=== PATIENT | female | born 1995 | race Caucasian/White ===

== ENCOUNTER → 2017-04-30 14:44 | Outpatient (CLI) | payer MEDICAID, SELFPAY ==
[2017-04-30 15:19] LABS: Absolute Lymphocyte Count 2.59 X10^3/ul (0.83-4.51); Absolute Neutrophil Count 7.5 X10^3/uL (2.0-7.7); Basophil# 0.02 X10^3/uL; Basophil% 0.2 % (0-1); Eosinophil# 0.09 X10^3/uL; Eosinophils% 0.8 % (0-5); Hematocrit 37.2 % (37-47); Lymphocyte # 2.59 X10^3/ul (4.0); Mean Corp Hgb Conc 32.3 g/gl (32-36); Mean Corpuscular Hgb 27.4 pg (27.0-32.0); Mean Corpuscular Volume 84.9 fL (81-99); Mean Platelet Vol. 10.6 fl (6.2-12.0); Monocyte# 0.53 X10^3/uL; Monocyte% 4.9 % (0-10); Neutrophil # 7.54 X10^3/uL (2.7-7.7); Neutrophil % 69.7 % (47-70); Platelet Count 253 K/mm3 (150-450); RBC Distribution Width CV 14.5 % (11.6-14.6); RBC Distribution Width SD 44.9 fl (35.1-43.9); Red Blood Count 4.38 M/mm3 (4.2-5.4); White Blood Count 10.8 K/mm3 (4.4-11.0)
[2017-04-30 15:27] LABS: POSITIVE COUNT NO; POSITIVE DIFFERENTIAL NO; POSITIVE MORPHOLOGY NO
== END ==
PROVIDERS: Family Provider Family Medicine; PCP Family Medicine; Visit Provider Obstetrics & Gynecology
DX: O09.92 Supervision of high risk pregnancy, unspecified, second trimester (principal); Z3A.00 Weeks of gestation of pregnancy not specified
CPT/HCPCS: 36415; 85025

== ENCOUNTER → 2017-05-30 12:08 | Outpatient (CLI) | payer MEDICAID, SELFPAY ==
--- NOTE | 2017-05-30 09:19 | US_ITS ---
STUDY: SECOND AND THIRD TRIMESTER OBSTETRICAL ULTRASOUND - LIMITED REASON FOR EXAM: Female, 21 years old. Follow-up of growth. LMP: October 27, 2016 PRIOR ULTRASOUND: March 14, 2017 TECHNIQUE: Transabdominal ultrasound evaluation was performed. FINDINGS: There is a single intrauterine fetus. The fetus is in a cephalic presentation. There is demonstrated cardiac activity with a heart rate of 136 bpm. There is a normal amniotic fluid volume. The largest amniotic fluid pocket measures 5.1 cm. The amniotic fluid index (BLADIMIR) is 16.2 cm. The placenta is anterior in location and is not low lying. There are Grade 2 placental changes. The cervix measures greater than 3.5 cm in length. BIOMETRY: BPD: 7.8 cm: 31 weeks, 2 days HC: 28.1 cm: 30 weeks, 6 days AC: 26.1 cm: 30 weeks, 2 days FL: 5.8 cm: 30 weeks, 2 days Age by LMP: 30 weeks, 5 days. BENNIE by LMP: August 03, 2017. age by prior US: 30 weeks, 1 days. BENNIE by prior US: August 07, 2017. age by current US: 30 weeks, 5 days. BENNIE by current US: August 03, 2017. Estimated weight: 1564 grams, +/- 228 grams, 27 percentile. US/OB Limited With Biometrics IMPRESSION: 1. Single living intrauterine gestation in cephalic presentation with estimated gestational age by size of 30 weeks 5 days. This is concordant with the clinical dating. 2. There has been normal interval growth since previous OB ultrasound. Electronically Signed: Neris Vazquez MD at 11:43 EDT , Service support ,
[2017-05-30 12:32] LABS: Absolute Lymphocyte Count 1.71 X10^3/ul (0.83-4.51); Absolute Neutrophil Count 6.9 X10^3/uL (2.0-7.7); Basophil# 0.03 X10^3/uL; Basophil% 0.3 % (0-1); Eosinophil# 0.08 X10^3/uL; Eosinophils% 0.9 % (0-5); Hematocrit 33.7 % (37-47); Hemoglobin 11.3 g/dl (12.0-15.0); Lymphocyte # 1.71 X10^3/ul (4.0); Lymphocyte % 18.2 % (19-41); Mean Corp Hgb Conc 33.5 g/gl (32-36); Mean Corpuscular Hgb 28.5 pg (27.0-32.0); Mean Corpuscular Volume 84.9 fL (81-99); Mean Platelet Vol. 10.6 fl (6.2-12.0); Monocyte% 6.4 % (0-10); Neutrophil # 6.94 X10^3/uL (2.7-7.7); Neutrophil % 73.9 % (47-70); Platelet Count 235 K/mm3 (150-450); RBC Distribution Width CV 14.4 % (11.6-14.6); RBC Distribution Width SD 43.7 fl (35.1-43.9); Red Blood Count 3.97 M/mm3 (4.2-5.4); White Blood Count 9.4 K/mm3 (4.4-11.0)
[2017-05-30 12:33] LABS: POSITIVE COUNT NO; POSITIVE DIFFERENTIAL NO; POSITIVE MORPHOLOGY NO
[2017-05-30 13:11] LABS: ALB/GLOB Ratio 0.6 RATIO (0.9-2.4); AST(SGOT) 15 U/L (15-37); Alanine Aminotransfer ALT/SGPT 17 U/L (13-56); Albumin, Serum 2.7 g/dL (3.2-5.0); Alkaline Phosphatase 72 U/L (45-117); Anion Gap 12 (5-15); BUN 7 mg/dL (7-18); BUN/Creat Ratio 13.5 RATIO (10-20); Calcium,Total 8.4 mg/dL (8.5-10.1); Chloride 107 mmol/L (98-107); Creatinine, Serum 0.52 mg/dL (0.55-1.02); EST Glomerular Filtration Rate 157 mL/min (>60); Est Glom Filt Rate - Afr Amer 190 mL/min (>60); Globulin 4.4 g/dL (2.2-4.2); Glucose 99 mg/dL (74-106); LDH 154 U/L (84-246); Potassium 4.1 mmol/L (3.5-5.1); Protein, Total 7.1 g/dL (6.4-8.2); Sodium Level 138 mmol/L (136-145); Uric Acid 5.9 mg/dL (2.6-6.0)
[2017-05-30 13:50] LABS: Protein, Urine (Random) 60.6 mg/dL (<11.9); Protein:Creat Ratio 497 mg/g CRE (0-200)
== END ==
PROVIDERS: Family Provider Family Medicine; PCP Family Medicine; Visit Provider Obstetrics & Gynecology
DX: O24.012 Pre-existing type 1 diabetes mellitus, in pregnancy, second trimester (principal); O09.92 Supervision of high risk pregnancy, unspecified, second trimester; Z3A.00 Weeks of gestation of pregnancy not specified
CPT/HCPCS: 36415; 76816; 80053; 82570; 83615; 84156; 84550; 85025

== ENCOUNTER 2017-06-09 18:40 | Outpatient (CLI) | payer MEDICAID, SELFPAY ==
[2017-06-09 20:32] VITALS: BMI 43.1
[2017-06-09 20:37] LABS: Mucous, Urine 0 SEEN /hpf (<or=2+)
[2017-06-09 20:39] LABS: Color, Urine Yellow (Yellow); Glucose, Dipstick Normal (Normal); Hematocrit 33.3 % (37-47); Hemoglobin 10.8 g/dl (12.0-15.0); Ketone-Dipstick 50 mg/dl (Negative); Leukocyte Esterase-Dipstick 500 /ul (Negative); Mean Corp Hgb Conc 32.4 g/gl (32-36); Mean Corpuscular Hgb 27.4 pg (27.0-32.0); Mean Corpuscular Volume 84.5 fL (81-99); Mean Platelet Vol. 10.3 fl (6.2-12.0); Nitrite-Dipstick Negative (Negative); Occult Blood-Urine Negative /ul (Negative); Platelet Count 194 K/mm3 (150-450); Protein-Dipstick 30 mg/dl (Negative); RBC Distribution Width CV 14.4 % (11.6-14.6); RBC Distribution Width SD 44.4 fl (35.1-43.9); Red Blood Count 3.94 M/mm3 (4.2-5.4); Urine Bilirubin Dipstick Negative (Negative); Urine Clarity Clear (Clear); Urine Urobilinogen Normal (Normal); White Blood Count 8.2 K/mm3 (4.4-11.0)
[2017-06-09 20:41] LABS: Scan Indicated on CBC? Y/N NO
[2017-06-09 20:53] LABS: Red Blood Cells-Urine 0-5 SEEN /hpf (0-5); Squamous Epithelial Cells - UA 10-25 SEEN /hpf (5-10); White Blood Cells 10-25 SEEN /hpf (0-5)
[2017-06-09 20:54] LABS: Bacteria 2+ /hpf (None Seen)
[2017-06-09 21:14] LABS: ALB/GLOB Ratio 0.6 RATIO (0.9-2.4); AST(SGOT) 31 U/L (15-37); Alanine Aminotransfer ALT/SGPT 18 U/L (13-56); Albumin, Serum 2.6 g/dL (3.2-5.0); Alkaline Phosphatase 82 U/L (45-117); Anion Gap 12 (5-15); BUN 7 mg/dL (7-18); BUN/Creat Ratio 16.3 RATIO (10-20); Calcium,Total 8.1 mg/dL (8.5-10.1); Chloride 108 mmol/L (98-107); Creatinine, Serum 0.43 mg/dL (0.55-1.02); EST Glomerular Filtration Rate 196 mL/min (>60); Est Glom Filt Rate - Afr Amer 237 mL/min (>60); Globulin 4.3 g/dL (2.2-4.2); Glucose 66 mg/dL (74-106); Potassium 3.6 mmol/L (3.5-5.1); Protein, Total 6.9 g/dL (6.4-8.2); Sodium Level 140 mmol/L (136-145)
[2017-06-09] MEDS: Nitrofurantoin Macrocrystals 100 MG Capsule PO (21:40)
--- NOTE | 2017-06-12 01:52 | OB.TRI.NOTE ---
History of Present Illness Date of Service: 06/09/17 Was patient seen by the physician?: Yes Reason For Visit: ABDOMINAL PAIN Date of Service: 06/09/17 Final BENNIE: 08/06/17 Gestational age: 32 Weeks and 1 Days History of Present Illness: 21 yo @ 31 weeks presents with abdominal pain right sided, no vb lof good fm no regular ctx ROS: general: negative GI: negative checkman: see hpi Home Medications Medication Instructions Recorded Sertraline HCl [Zoloft] 100 mg PO DAILY 06/08/15 blood pressure monitor kit See Dose Instructions .ROUTE 02/21/17 .MEDSUPPLY #1 ea labetalol 100 mg tablet 100 mg PO BID #60 tab 02/21/17 blood sugar diagnostic strips See Dose Instructions .ROUTE 03/22/17 .MEDSUPPLY #20 ea insulin lispro (U-100) 100 unit/mL See Label Instructions SC TID ml 03/22/17 subcutaneous half-unit pen pen needle, diabetic 32 gauge x See Dose Instructions .ROUTE 03/22/1732 .MEDSUPPLY #10 ea 1 tab PO QDAY 03/22/17 vitamin,calcium,sklgwefe-jxfz-rkqvn acid tablet Acetaminophen/Butalbital/Caffe 1 tablet PO Q4H PRN PRN 06/09/17 [Fioricet] Aspirin [Aspirin, Baby] 81 mg PO DAILY@0800 06/09/17 Insulin Glargine [Lantus (BKC)] 14 units SC QHS 06/09/17 Nitrofurantoin Monohyd/M-Cryst 100 mg PO BID #14 cap 06/10/17 [Macrobid 100 mg Capsule] Allergies No Known Allergies Allergy (Verified 06/09/17 19:33) - Pertinent Past Medical History Pertinent Past Medical History: diabetes hypertension depression Physical Exam General: Alert, Oriented x3 Cardiovascular: Regular rate Lungs: Clear to auscultation Abdomen: Soft, Non Tender, Gravid Extremities:: No edema Estimated gestational size: Appropriate for gestational size NST - FHR Rate Baby A Baseline: 140 Variability:: Moderate Accelerations:: 15 x 15 Decelerations:: None NST Reactive:: Yes FHR Category:: Category I Uterine Activity:: no regular ctx Impression/Plan abdominal pain and uti in - give macrobid, fu in office
--- NOTE | 2017-06-12 01:55 | OB.TRI.HP_ITS ---
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 Home Medications Medication Instructions Recorded Sertraline HCl [Zoloft] 100 mg PO DAILY 06/08/15 blood pressure monitor kit See Dose Instructions .ROUTE 02/21/17 .MEDSUPPLY #1 ea labetalol 100 mg tablet 100 mg PO BID #60 tab 02/21/17 blood sugar diagnostic strips See Dose Instructions .ROUTE 03/22/17 .MEDSUPPLY #20 ea insulin lispro (U-100) 100 unit/mL See Label Instructions SC TID ml 03/22/17 subcutaneous half-unit pen pen needle, diabetic 32 gauge x See Dose Instructions .ROUTE 03/22/1732 .MEDSUPPLY #10 ea 1 tab PO QDAY 03/22/17 vitamin,calcium,girpxyib-wojn-wxebx acid tablet Acetaminophen/Butalbital/Caffe 1 tablet PO Q4H PRN PRN 06/09/17 [Fioricet] Aspirin [Aspirin, Baby] 81 mg PO DAILY@0800 06/09/17 Insulin Glargine [Lantus (BKC)] 14 units SC QHS 06/09/17 Nitrofurantoin Monohyd/M-Cryst 100 mg PO BID #14 cap 06/10/17 [Macrobid 100 mg Capsule] Allergies No Known Allergies Allergy (Verified 06/09/17 19:33) - Pertinent Past Medical History Pertinent Past Medical History: diabetes hypertension depression Physical Exam General: Alert, Oriented x3 Cardiovascular: Regular rate Lungs: Clear to auscultation Abdomen: Soft, Non Tender, Gravid Extremities:: No edema Estimated gestational size: Appropriate for gestational size NST - FHR Rate Baby A Baseline: 140 Variability:: Moderate Accelerations:: 15 x 15 Decelerations:: None NST Reactive:: Yes FHR Category:: Category I Uterine Activity:: no regular ctx Impression/Plan abdominal pain and uti in - give macrobid, fu in office
== END 2017-06-09 21:50 | disposition home or self-care (01) ==
LOC: WPOUT 18:44 → WP 06-11 10:14
PROVIDERS: Family Provider Family Medicine; PCP Family Medicine; Visit Provider Obstetrics & Gynecology
DX: O23.43 Unspecified infection of urinary tract in pregnancy, third trimester (principal); O24.913 Unspecified diabetes mellitus in pregnancy, third trimester; O16.3 Unspecified maternal hypertension, third trimester; O99.343 Other mental disorders complicating pregnancy, third trimester; F32.9 Major depressive disorder, single episode, unspecified; Z3A.31 31 weeks gestation of pregnancy; Z79.4 Long term (current) use of insulin; Z79.82 Long term (current) use of aspirin; Z79.899 Other long term (current) drug therapy
CPT/HCPCS: 36415; 59025; 59050; 80053; 81001; 85027; 87086; 87088; 99218; G0378

== ENCOUNTER → 2017-06-25 16:36 | Outpatient (CLI) | payer MEDICAID, SELFPAY ==
[2017-06-25 17:12] LABS: Protein, Urine (Random) 45.9 mg/dL (<11.9); Protein:Creat Ratio 494 mg/g CRE (0-200)
== END ==
PROVIDERS: Family Provider Family Medicine; PCP Family Medicine; Visit Provider Obstetrics & Gynecology
DX: O16.3 Unspecified maternal hypertension, third trimester (principal); Z3A.00 Weeks of gestation of pregnancy not specified
CPT/HCPCS: 82570; 84156

== ENCOUNTER 2017-07-02 14:45 | Outpatient (CLI) | payer MEDICAID, SELFPAY ==
[2017-07-02 15:12] VITALS: BMI 43.4
[2017-07-02 15:39] LABS: Hematocrit 33.7 % (37-47); Hemoglobin 10.9 g/dl (12.0-15.0); Mean Corp Hgb Conc 32.3 g/gl (32-36); Mean Corpuscular Volume 83.4 fL (81-99); Mean Platelet Vol. 10.5 fl (6.2-12.0); Platelet Count 203 K/mm3 (150-450); RBC Distribution Width CV 14.4 % (11.6-14.6); RBC Distribution Width SD 44.5 fl (35.1-43.9); Red Blood Count 4.04 M/mm3 (4.2-5.4); White Blood Count 5.4 K/mm3 (4.4-11.0)
[2017-07-02] MEDS: Betamethasone/Betamethasone 30 MG/5 ML Vial 12 MG IM (15:41)
[2017-07-02 15:43] LABS: Scan Indicated on CBC? Y/N NO
[2017-07-02 16:09] LABS: AST(SGOT) 56 U/L (15-37); Alanine Aminotransfer ALT/SGPT 34 U/L (13-56); Creatinine, Serum 0.57 mg/dL (0.55-1.02); EST Glomerular Filtration Rate 140 mL/min (>60); Est Glom Filt Rate - Afr Amer 169 mL/min (>60); Estimated Creatinine Clearance 129.15 ml/min; Uric Acid 7.2 mg/dL (2.6-6.0)
[2017-07-02 16:22] LABS: International Normalized Ratio 1.1
--- NOTE | 2017-07-02 17:26 | HP.PCM_ITS ---
- Problem List (1) Hypertension complicating in third trimester Status: Acute Comment: baseline elevated proteinuria, labetalol, home bp monitoring, baby ASA, deliver at 37-38 weeks (2) High-risk in third trimester Status: Acute Comment: PRR BENNIE 08/06/17 Girl: Dolly Liriano boyfriend Alexx (3) Diabetes in Status: Acute Qualifiers: Comment: Class C, sees BJ Shook, growth us every 4 weeks, weekly modified bpp starting at 32 weeks, deliver at 37-38 weeks (4) History of pre-eclampsia Status: Acute Comment: on baby ASA, has baseline elevated proteinuria (5) Depression Status: Chronic Qualifiers: Comment: riccooft (6) Type 2 diabetes mellitus Status: Chronic Qualifiers: (7) Migraine headache Status: Chronic Qualifiers: (8) Hyperlipidemia Status: Chronic History Date of Admission: 07/02/17 Final BENNIE: 08/06/17 Gestational age: 35 Weeks and 0 Days History of this : 21 yo @ 35 weeks presetns with borderline elvated bps in the office and mildly elevated ast today. she dneies any ESPARZA BV. denies any vb or lof Pertinent Past Medical History: Past Medical History (Last Reviewed 06/26/17 @ 14:35 by Shadia Rosario) Depression (Chronic) Type 2 diabetes mellitus (Chronic) Migraine headache (Chronic) Hyperlipidemia (Chronic) Acute pancreatitis (Resolved) Past Surgical History (Last Reviewed 06/26/17 @ 14:35 by Shadia Rosario) carpal tunnel (Acute) Mom's Labs & Results 07/02/17 07/02/17 07/02/17 15:25 15:25 15:25 WBC 5.4 RBC 4.04 L Hgb 10.9 L Hct 33.7 L MCV 83.4 MCH 27.0 MCHC 32.3 RDW 14.4 RDW Differential 44.5 H Plt Count 203 MPV 10.5 PT 14.0 INR 1.1 APTT 34.0 Creatinine 0.57 Estim Creat Clear Calc 129.15 Est GFR (MDRD) Af Amer 169 Est GFR (MDRD) Non-Af 140 Uric Acid 7.2 H AST 56 H ALT 34 Social History Alleged father Alexx Hess Hx Smoking No Smoking Status Never smoker All Active Problems (Last Reviewed 06/26/17 @ 14:35 by Shadia Rosario) Hypertension complicating in third trimester (Acute) High-risk in third trimester (Acute) Diabetes in (Acute) History of pre-eclampsia (Acute) Acute pancreatitis (Resolved) Hypertension affecting in second trimester (Resolved) Supervision of high risk in second trimester (Resolved) Allergies No Known Allergies Allergy (Verified 07/02/17 15:15) Smoking Status: Never smoker Alcohol: None Drug Use: none Number of Fetus(es): 1 - fht 130-140 moderate variability reactive no decels category I tracing toco no reguar ctx Review of Systems Constitutional: Denies: Chills, Fever, Weight Change HEENT: Denies: Head Aches, Sinus Congestion, Sinus Drainage Cardiovascular: Denies: Chest Pain, Palpitations Respiratory: Denies: Cough, Shortness of breath at rest, Sputum production Gastrointestinal: Denies: Abdominal Pain, Nausea, Vomiting Genitourinary: Denies: Dysuria Musculoskeletal: Denies: Joint Pain, Joint Tenderness Skin: Denies: Rash, Wounds Neurological: Denies: Numbness, Tingling, Focal weakness Psychiatric: Denies: Anxiety, Depression, Homicidal Ideations, Suicidal Ideations Hematologic/ Lymphatic: Denies: Easy Bruising, Easy Bleeding Physical Exam General: Alert, Oriented x3 Cardiovascular: Regular rate Lungs: Normal air movement Abdomen: Soft, Non Tender, Gravid Extremities:: No edema Estimated gestational size: Appropriate for gestational size Assessment/Plan 21 yo @ 35 weeks presents with elevated bps 1. cHTN on labetalol 100 BID- mildly elevated ast recommend admit overnight and serial bloodwork ordered, patient asymptomatic. await repeat urine protein/ cr ratio but has history of elevation. 2. diabetes- increase insulin 10% due to bmz administration 3. prematurity- bmz ordered 4. growth us in morning
[2017-07-02 18:20] LABS: Bedside Glucose 116 mg/dL (70-110)
[2017-07-02 19:57] LABS: AST(SGOT) 57 U/L (15-37); Alanine Aminotransfer ALT/SGPT 35 U/L (13-56)
[2017-07-02 21:06] LABS: Bedside Glucose 159 mg/dL (70-110)
[2017-07-02] MEDS: Sertraline 100 MG Tablet PO (21:53)
[2017-07-02] MEDS: Labetalol 100 MG Tablet PO (21:53)
[2017-07-02 23:06] LABS: Bedside Glucose 132 mg/dL (70-110)
[2017-07-02] MEDS: Acetaminophen 500 MG Tablet 1000 MG PO (23:28)
[2017-07-03] MEDS: Acetaminophen 325 MG Tablet 650 MG PO (05:43)
[2017-07-03 05:49] LABS: ALB/GLOB Ratio 0.6 RATIO (0.9-2.4); AST(SGOT) 42 U/L (15-37); Alanine Aminotransfer ALT/SGPT 32 U/L (13-56); Albumin, Serum 2.5 g/dL (3.2-5.0); Alkaline Phosphatase 119 U/L (45-117); Anion Gap 11 (5-15); BUN 7 mg/dL (7-18); BUN/Creat Ratio 11.7 RATIO (10-20); Calcium,Total 8.3 mg/dL (8.5-10.1); Chloride 110 mmol/L (98-107); EST Glomerular Filtration Rate 134 mL/min (>60); Est Glom Filt Rate - Afr Amer 162 mL/min (>60); Estimated Creatinine Clearance 122.69 ml/min; Globulin 4.3 g/dL (2.2-4.2); Glucose 107 mg/dL (74-106); Potassium 3.6 mmol/L (3.5-5.1); Protein, Total 6.8 g/dL (6.4-8.2); Sodium Level 139 mmol/L (136-145)
[2017-07-03] MEDS: proMETHazine 25 MG Tablet PO (05:50)
--- NOTE | 2017-07-03 06:00 | US_ITS ---
STUDY: SECOND AND THIRD TRIMESTER OBSTETRICAL ULTRASOUND - LIMITED REASON FOR EXAM: Female, 21 years old. Routine survey. LMP: October 27, 2016 PRIOR ULTRASOUND: Comparison is made with prior study dated May 30, 2017. TECHNIQUE: Transabdominal ultrasound evaluation was performed. FINDINGS: There is a single intrauterine fetus. The fetus is in a cephalic presentation. There is demonstrated cardiac activity with a heart rate of 140 bpm. There is a normal amniotic fluid volume. The largest amniotic fluid pocket measures 4.5 cm. The amniotic fluid index (BLADIMIR) is 15.3 cm. The placenta is anterior in location and is not low lying. There are Grade 2 placental changes. The cervix measures 4.3 cm in length. BIOMETRY: BPD: 8.83 cm: 35 weeks, 5 days HC: 31.64 cm: 35 weeks, 4 days AC: 31.98 cm: 36 weeks, 0 days FL: 6.88 cm: 35 weeks, 3 days Age by LMP: 35 weeks, 4 days. BENNIE by LMP: August 03, 2017. age by prior US: 35 weeks, 4 days. BENNIE by prior US: August 03, 2017. age by current US: 35 weeks, 5 days. BENNIE by current US: August 02, 2017. Estimated weight: 2742 grams, +/- 400 grams, 53 percentile. Gender: Indeterminant US/OB Limited (No Biometrics) IMPRESSION: Single live intrauterine gestation with a mean gestational age of 35 weeks and 4 days. The measurements obtained today following the normal expected range. Electronically Signed: Popeye Nichols MD at 11:27 EDT Tel [phone], Service support ,
[2017-07-03 06:15] LABS: Hematocrit 32.9 % (37-47); Hemoglobin 10.6 g/dl (12.0-15.0); Mean Corp Hgb Conc 32.2 g/gl (32-36); Mean Corpuscular Hgb 27.3 pg (27.0-32.0); Mean Corpuscular Volume 84.8 fL (81-99); Mean Platelet Vol. 11.3 fl (6.2-12.0); Platelet Count 225 K/mm3 (150-450); RBC Distribution Width CV 14.3 % (11.6-14.6); Red Blood Count 3.88 M/mm3 (4.2-5.4); White Blood Count 7.1 K/mm3 (4.4-11.0)
[2017-07-03 06:22] LABS: Scan Indicated on CBC? Y/N NO
[2017-07-03] MEDS: Aspirin 81 MG TAB.CHEW PO (08:17)
[2017-07-03] MEDS: Labetalol 100 MG Tablet PO (10:25)
[2017-07-03 12:06] LABS: Bedside Glucose 138 mg/dL (70-110)
[2017-07-03] MEDS: Betamethasone/Betamethasone 30 MG/5 ML Vial 12 MG IM (15:56)
--- NOTE | 2017-07-04 06:23 | PCM.PN.OB ---
Subjective: late entry- patient seen 07/03/17 at 8 am patient still having intermittent headache but lessened, didn't sleep much the night prior. no vb lof good fm no regualr ctx. some nausea still no emesis - Physical Exam General: Alert, Oriented x3 HEENT: EOMI Lungs: Normal air movement Cardiovascular: Regular rate Abdomen: - - FHT 140s moderate variability reactive no decels category I tracing toco no regular ctx Weight: 245 lb 2.464 oz Body Mass Index (BMI) 43.4 Finger Stick Blood Glucose 248 POC Glucose 07/03/17 12:03 POC Glucose 138 H Medical Necessity - Tobacco Use Smoking Status: Never smoker Assessment/Plan 21 yo @ 35 weeks presents with elevated bps with history of cHTN, inuslin dependent diabetes, obesity 1. cHTN on labetalol 100 BID- mildly elevated ast s/p admit overnight and serial bloodwork ordered, bps WNL and labs improving. suspect ast increase due to nause and vomiting not due to preeclampsia. 2. diabetes- increase insulin 10% due to bmz administration 3. prematurity- bmz ordered 4. growth us WNL today dc to home preeclampsia precautions, close fu in office.
--- NOTE | 2017-07-04 06:27 | PCM.DC.SUM ---
Discharge Date and Diagnosis Date of Admission: 07/02/17 Date of Discharge: 07/03/17 - Primary Discharge Diagnosis cHTN insulin dependent diabetes - Secondary Discharge Diagnosis Chronic Problems (Last Reviewed 06/26/17 @ 14:35 by Shadia Rosario) Depression (Chronic) zoloft Type 2 diabetes mellitus (Chronic) Migraine headache (Chronic) Hyperlipidemia (Chronic) Hospital Course and Treatment Imaging Results: normal growth us Operations: None Procedures: None Summary of Care Provided: The patient is a 21 year old F admitted for monitoring of bps, had initially elevated ast but repeat showed decrease so likely it was due to nausea and vomiting, not due to superimposed preeclampsia. bps were WNL, growth us done and normal. some intermittent headaches but those resolved with medication. Discharge Diet: Carb Control Diet Discharge Activity: Return to Normal Activity May resume sexual activity in: No Restrictions Home Medications: Medications to take at Discharge Sertraline HCl [Zoloft] 100 mg PO DAILY 06/08/15 blood pressure monitor kit See Dose Instructions .ROUTE .MEDSUPPLY #1 ea 02/21/17 labetalol 100 mg tablet 100 mg PO BID #60 tab 02/21/17 blood sugar diagnostic strips See Dose Instructions .ROUTE .MEDSUPPLY #20 ea 03/22/17 insulin lispro (U-100) 100 unit/mL subcutaneous half-unit pen See Label Instructions SC TID ml 03/22/17 pen needle, diabetic 32 gauge x See Dose Instructions .ROUTE .MEDSUPPLY #10 ea 03/22/17 vitamin,calcium,oiunkpsv-huxm-guxiu acid tablet 1 tab PO QDAY 03/22/17 Acetaminophen/Butalbital/Caffe [Fioricet] 1 tab PO Q4H PRN PRN 06/09/17 Aspirin [Aspirin, Baby] 81 mg PO DAILY@0800 06/09/17 Insulin Glargine [Lantus (BKC)] 14 units SC BID 06/09/17 Sertraline HCl [Zoloft] 100 mg PO 07/02/17 Primary Care Physician: Bryant Cardona MD [Primary Care Provider] - Medical Necessity - Tobacco Use Smoking Status: Never smoker Meaningful Use Info Meaningful Use Diagnoses (Choose all that apply): None applicable
== END 2017-07-03 16:00 | disposition home or self-care (01) ==
LOC: WPOUT 14:53 → WP 14:54
PROVIDERS: Family Provider Family Medicine; PCP Family Medicine; Visit Provider Obstetrics & Gynecology
DX: O16.3 Unspecified maternal hypertension, third trimester (principal); O24.913 Unspecified diabetes mellitus in pregnancy, third trimester; Z79.4 Long term (current) use of insulin; O99.213 Obesity complicating pregnancy, third trimester; E66.9 Obesity, unspecified; Z68.41 Body mass index [BMI] 40.0-44.9, adult; O09.893 Supervision of other high risk pregnancies, third trimester; O99.343 Other mental disorders complicating pregnancy, third trimester; F32.9 Major depressive disorder, single episode, unspecified; O99.89 Other specified diseases and conditions complicating pregnancy, childbirth and the puerperium; G43.909 Migraine, unspecified, not intractable, without status migrainosus; E78.5 Hyperlipidemia, unspecified; Z87.19 Personal history of other diseases of the digestive system; Z3A.35 35 weeks gestation of pregnancy; Z79.899 Other long term (current) drug therapy; Z87.59 Personal history of other complications of pregnancy, childbirth and the puerperium
CPT/HCPCS: 36415; 59025; 59050; 76815; 80053; 82565; 82570; 82962; 84156; 84450; 84460; 84550; 85027; 85610; 85730; 96372; 99218; G0378; J0702

== ENCOUNTER → 2017-07-02 17:07 | Outpatient (CLI) | payer MEDICAID, SELFPAY ==
[2017-07-02 17:31] LABS: Protein, Urine (Random) 43.2 mg/dL (<11.9); Protein:Creat Ratio 482 mg/g CRE (0-200)
== END ==
PROVIDERS: Family Provider Family Medicine; PCP Family Medicine; Visit Provider Nurse Practitioner Women's Health
DX: O16.3 Unspecified maternal hypertension, third trimester (principal); O09.93 Supervision of high risk pregnancy, unspecified, third trimester; O24.919 Unspecified diabetes mellitus in pregnancy, unspecified trimester; Z87.59 Personal history of other complications of pregnancy, childbirth and the puerperium; Z3A.00 Weeks of gestation of pregnancy not specified
CPT/HCPCS: 82570; 84156

== ENCOUNTER → 2017-07-05 15:38 | Outpatient (CLI) | payer MEDICAID, SELFPAY ==
[2017-07-05 17:51] LABS: ALB/GLOB Ratio 0.6 RATIO (0.9-2.4); AST(SGOT) 38 U/L (15-37); Alanine Aminotransfer ALT/SGPT 27 U/L (13-56); Albumin, Serum 2.5 g/dL (3.2-5.0); Alkaline Phosphatase 112 U/L (45-117); Anion Gap 10 (5-15); BUN 8 mg/dL (7-18); BUN/Creat Ratio 13.5 RATIO (10-20); Calcium,Total 7.9 mg/dL (8.5-10.1); Chloride 110 mmol/L (98-107); Creatinine, Serum 0.59 mg/dL (0.55-1.02); EST Glomerular Filtration Rate 135 mL/min (>60); Est Glom Filt Rate - Afr Amer 163 mL/min (>60); Globulin 4.1 g/dL (2.2-4.2); Glucose 73 mg/dL (74-106); Potassium 3.4 mmol/L (3.5-5.1); Protein, Total 6.6 g/dL (6.4-8.2); Sodium Level 141 mmol/L (136-145)
== END ==
PROVIDERS: Nurse Practitioner Women's Health; Family Provider Family Medicine; PCP Family Medicine; Visit Provider Obstetrics & Gynecology
DX: O16.3 Unspecified maternal hypertension, third trimester (principal); O09.93 Supervision of high risk pregnancy, unspecified, third trimester; O24.919 Unspecified diabetes mellitus in pregnancy, unspecified trimester; Z87.59 Personal history of other complications of pregnancy, childbirth and the puerperium; Z3A.00 Weeks of gestation of pregnancy not specified
CPT/HCPCS: 36415; 80053

== ENCOUNTER → 2017-07-05 19:02 | Outpatient (CLI) | payer MEDICAID, SELFPAY ==
[2017-07-05 23:19] LABS: Group B Strep DNA By PCR Negative (Negative); Internal Control PASS; Probe Check PASS; Specimen Processing Control PASS
== END ==
PROVIDERS: Family Provider Family Medicine; PCP Family Medicine; Visit Provider Nurse Practitioner Women's Health
DX: O16.3 Unspecified maternal hypertension, third trimester (principal); O09.93 Supervision of high risk pregnancy, unspecified, third trimester; O24.919 Unspecified diabetes mellitus in pregnancy, unspecified trimester; Z87.59 Personal history of other complications of pregnancy, childbirth and the puerperium; Z3A.36 36 weeks gestation of pregnancy
CPT/HCPCS: 36415; 80053; 87081; 87653

== ENCOUNTER 2017-07-12 10:35 | Inpatient (IN) | payer MEDICAID, SELFPAY ==
[2017-07-12 10:48] VITALS: BMI 44.1
[2017-07-12 10:48] LABS: Protein, Urine (Random) 29.5 mg/dL (<11.9); Protein:Creat Ratio 406 mg/g CRE (0-200)
[2017-07-12] MEDS: Lactated Ringers 1,000 ML 15 ML IV (11:10)
[2017-07-12 11:45] LABS: Bedside Glucose 121 mg/dL (70-110)
[2017-07-12 11:51] LABS: International Normalized Ratio 1.1; Prothrombin Time (Protime)PT. 13.8 SECONDS (11.7-14.9)
[2017-07-12 11:52] LABS: Partial Thromboplast Time 32.2 Seconds (24.1-36.2)
[2017-07-12 11:54] LABS: Hematocrit 32.9 % (37-47); Hemoglobin 10.5 g/dl (12.0-15.0); Mean Corp Hgb Conc 31.9 g/gl (32-36); Mean Corpuscular Hgb 26.6 pg (27.0-32.0); Mean Corpuscular Volume 83.3 fL (81-99); Mean Platelet Vol. 10.9 fl (6.2-12.0); Platelet Count 251 K/mm3 (150-450); RBC Distribution Width CV 14.4 % (11.6-14.6); RBC Distribution Width SD 43.9 fl (35.1-43.9); Red Blood Count 3.95 M/mm3 (4.2-5.4); White Blood Count 8.6 K/mm3 (4.4-11.0)
[2017-07-12 11:55] LABS: Scan Indicated on CBC? Y/N NO
[2017-07-12] MEDS: Magnesium Sulfate 20 GM/500 ML BAG IV ×2 (11:59→23:02)
[2017-07-12] MEDS: Dext 5%-0.45% NS 1,000 ML 125 ML IV ×2 (12:00→23:02)
[2017-07-12 12:04] LABS: AST(SGOT) 11 U/L (15-37); Alanine Aminotransfer ALT/SGPT 18 U/L (13-56); Creatinine, Serum 0.54 mg/dL (0.55-1.02); EST Glomerular Filtration Rate 149 mL/min (>60); Est Glom Filt Rate - Afr Amer 181 mL/min (>60); Estimated Creatinine Clearance 136.32 ml/min; Uric Acid 5.7 mg/dL (2.6-6.0)
[2017-07-12] MEDS: Oxytocin 30 units/NS 500 ml 30 UNITS/500 ML IV.SOLN IV (12:20)
[2017-07-12] MEDS: 0.9% Normal Saline 100 ML IV.SOLN. INTRA-UTER (12:58)
[2017-07-12 13:15] LABS: Bedside Glucose 136 mg/dL (70-110)
[2017-07-12 15:01] LABS: Bedside Glucose 121 mg/dL (70-110)
[2017-07-12 16:11] LABS: Bedside Glucose 98 mg/dL (70-110)
[2017-07-12 17:10] LABS: Bedside Glucose 103 mg/dL (70-110)
[2017-07-12 18:11] LABS: Bedside Glucose 96 mg/dL (70-110)
[2017-07-12] MEDS: Acetaminophen 325 MG Tablet 650 MG PO (18:51)
[2017-07-12 19:26] LABS: Bedside Glucose 107 mg/dL (70-110)
[2017-07-12] MEDS: fentaNYL-bupivacaine (epidural) 100 ML BAG EPIDURAL (20:15)
[2017-07-12 20:26] LABS: Bedside Glucose 87 mg/dL (70-110)
[2017-07-12 21:21] LABS: Bedside Glucose 95 mg/dL (70-110)
[2017-07-12 22:15] LABS: Bedside Glucose 98 mg/dL (70-110)
--- NOTE | 2017-07-12 22:37 | PCM.HP.OB ---
- Problem List (1) Severe preeclampsia Status: Acute (2) Diabetes in Status: Acute Qualifiers: Comment: Class C, sees BJ Shook, growth us every 4 weeks, weekly modified bpp starting at 32 weeks, deliver at 37-38 weeks (3) High-risk in third trimester Status: Acute Comment: PRR BENNIE 08/06/17 Girl: Dolly Liriano boyfriend Alexx (4) History of pre-eclampsia Status: Acute Comment: on baby ASA, has baseline elevated proteinuria (5) Depression Status: Chronic Qualifiers: Comment: zoloft History Date of Admission: 07/12/17 Final BENNIE Source: US >20 weeks History of this : 21 yo @ 36w6d presents for IOL secondary to oligo as a complication of severe preeclampsia. she has a history of diabetes and chtn but devleoped increasing bps this week and intemritttnet headaches. today an BLADIMIR shows she is oligohydramnios and her bps are elevated. 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 Date Name GA/Weeks Outcome Route Bth Weight Infant Gen Labor Lgth Anesthesia Del Locatn Provider FOB 09/10/15 Addyson 37 live - full term Female [facility] Adriel ALASD Calculator Estimated Delivery Date 08/03/17 Based on LMP (certain) 10/27/16 Current WG 36w 6d Number 1 Expected Delivery Route/Plan IOL 37-38 weeks secondary to diabetes Specific Issue/Plans Initial OB labs 12/18/16 04/30/17 H.0 Platelets: 253 Type and Screen: A positive RPR: neg Rubella: immune HepBsAg: neg HIV: neg GC/Chlamydia: neg/neg Urine Culture: neg Allergies No Known Allergies Allergy (Verified 07/12/17 09:53) Current Medications Acetaminophen (Tylenol) 650 mg PO Q6H PRN PRN PRN Reason: HEADACHE Last Admin: 07/12/17 18:51 Dose: 650 mg Dextrose (D50w Syringe) 0 gm IV X1 PRN; Protocol PRN Reason: Hypoglycemia Dextrose (D50w Syringe) 0 gm IV X1 PRN; Protocol PRN Reason: Hypoglycemia Glucagon () 1 mg IM .X1 PRN PRN Reason: Hypoglycemia Glucagon () 1 mg IM .X1 PRN PRN Reason: Hypoglycemia Oxytocin/Sodium Chloride () 30 units in 500 mls @ 1 mls/hr IV .Q500H BORIS Last Admin: 07/12/17 12:20 Dose: 1 mls/hr Magnesium Sulfate (20gm/500ml) 20 gm in 500 mls @ 50 mls/hr IV .Q10H BORIS PRN Reason: 2 GM/HR Last Admin: 07/12/17 11:59 Dose: 50 mls/hr Dextrose/Sodium Chloride () 1,000 mls @ 125 mls/hr IV .Q8H BORIS Last Admin: 07/12/17 12:00 Dose: 125 mls/hr Insulin Aspart 100 unit/ (Sodium Chloride) 100 mls @ 1 mls/hr CONT INF .Q100H BORIS; 1 UNIT/HR PRN Reason: Protocol Last Admin: 07/12/17 12:00 Dose: 1 mls/hr Lactated Ringer's () 1,000 mls @ 15 mls/hr IV .Q48H BORIS Last Admin: 07/12/17 11:10 Dose: 15 mls/hr Naloxone HCl 4 mg/ Dextrose 504 mls @ 0 mls/hr IV PRN PRN; Protocol PRN Reason: TO MAINTAIN RR>10 Nalbuphine HCl (Nubain) 5 mg IV Q3H PRN PRN Reason: ITCHING Stop: 07/13/17 20:33 Naloxone HCl (Narcan) 0.2 mg IV Q1M PRN PRN Reason: RR<10 AND PT UNRESPONSIVE Stop: 07/13/17 20:33 Smoking Status: Never smoker Alcohol: None Drug Use: none Number of Fetus(es): 1 - fht 140 moderate variability reactive no decels no regular ctx Review of Systems Constitutional: Denies: Chills, Fever, Weight Change Eyes: Denies: Pain, Vision Change Cardiovascular: Denies: Chest Pain Respiratory: Denies: Cough, Pleuritic Pain Gastrointestinal: Reports: Abdominal Pain Physical Exam General: Alert Cardiovascular: Regular rate Lungs: Normal air movement Abdomen: Soft, Non Tender, Gravid Extremities:: No edema Estimated gestational size: Appropriate for gestational size Presentation: Cephalic Cervix Dilation (cm): 1.5 Assessment/Plan Active and Suspected Problems (Last Reviewed 07/12/17 @ 09:54 by Sharmaine Luna) Severe preeclampsia (Acute) 21 yo G2P! @ 36w6d with preeclampsia with severe features 1. oligo and elevated bps- severe preeclampsia recommend IOL and magnesium IV. pit and fb 2. epi PRN 3. diabetes- insulin drip 4. EFW approximately 6 lbs -6 1/2 lbs
--- NOTE | 2017-07-12 23:05 | HP.PCM_ITS ---
- Problem List (1) Severe preeclampsia Status: Acute (2) Diabetes in Status: Acute Qualifiers: Comment: Class C, sees BJ Shook, growth us every 4 weeks, weekly modified bpp starting at 32 weeks, deliver at 37-38 weeks (3) High-risk in third trimester Status: Acute Comment: PRR BENNIE 08/06/17 Girl: Dolly Liriano boyfriend Alexx (4) History of pre-eclampsia Status: Acute Comment: on baby ASA, has baseline elevated proteinuria (5) Depression Status: Chronic Qualifiers: Comment: zoloft History Date of Admission: 07/12/17 Final BENNIE Source: US >20 weeks History of this : 21 yo @ 36w6d presents for IOL secondary to oligo as a complication of severe preeclampsia. she has a history of diabetes and chtn but devleoped increasing bps this week and intemritttnet headaches. today an BLADIMIR shows she is oligohydramnios and her bps are elevated. 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 Date Name GA/Weeks Outcome Route Bth Weight Infant Gen Labor Lgth Anesthesia Del Locatn Provider FOB 09/10/15 Addyson 37 live - full term Female [facility] Adriel ALASD Calculator Estimated Delivery Date 08/03/17 Based on LMP (certain) 10/27/16 Current WG 36w 6d Number 1 Expected Delivery Route/Plan IOL 37-38 weeks secondary to diabetes Specific Issue/Plans Initial OB labs 12/18/16 04/30/17 H.0 Platelets: 253 Type and Screen: A positive RPR: neg Rubella: immune HepBsAg: neg HIV: neg GC/Chlamydia: neg/neg Urine Culture: neg Allergies No Known Allergies Allergy (Verified 07/12/17 09:53) Current Medications Acetaminophen (Tylenol) 650 mg PO Q6H PRN PRN PRN Reason: HEADACHE Last Admin: 07/12/17 18:51 Dose: 650 mg Dextrose (D50w Syringe) 0 gm IV X1 PRN; Protocol PRN Reason: Hypoglycemia Dextrose (D50w Syringe) 0 gm IV X1 PRN; Protocol PRN Reason: Hypoglycemia Glucagon () 1 mg IM .X1 PRN PRN Reason: Hypoglycemia Glucagon () 1 mg IM .X1 PRN PRN Reason: Hypoglycemia Oxytocin/Sodium Chloride () 30 units in 500 mls @ 1 mls/hr IV .Q500H BORIS Last Admin: 07/12/17 12:20 Dose: 1 mls/hr Magnesium Sulfate (20gm/500ml) 20 gm in 500 mls @ 50 mls/hr IV .Q10H BORIS PRN Reason: 2 GM/HR Last Admin: 07/12/17 11:59 Dose: 50 mls/hr Dextrose/Sodium Chloride () 1,000 mls @ 125 mls/hr IV .Q8H BORIS Last Admin: 07/12/17 12:00 Dose: 125 mls/hr Insulin Aspart 100 unit/ (Sodium Chloride) 100 mls @ 1 mls/hr CONT INF .Q100H BORIS; 1 UNIT/HR PRN Reason: Protocol Last Admin: 07/12/17 12:00 Dose: 1 mls/hr Lactated Ringer's () 1,000 mls @ 15 mls/hr IV .Q48H BORIS Last Admin: 07/12/17 11:10 Dose: 15 mls/hr Naloxone HCl 4 mg/ Dextrose 504 mls @ 0 mls/hr IV PRN PRN; Protocol PRN Reason: TO MAINTAIN RR>10 Nalbuphine HCl (Nubain) 5 mg IV Q3H PRN PRN Reason: ITCHING Stop: 07/13/17 20:33 Naloxone HCl (Narcan) 0.2 mg IV Q1M PRN PRN Reason: RR<10 AND PT UNRESPONSIVE Stop: 07/13/17 20:33 Smoking Status: Never smoker Alcohol: None Drug Use: none Number of Fetus(es): 1 - fht 140 moderate variability reactive no decels no regular ctx Review of Systems Constitutional: Denies: Chills, Fever, Weight Change Eyes: Denies: Pain, Vision Change Cardiovascular: Denies: Chest Pain Respiratory: Denies: Cough, Pleuritic Pain Gastrointestinal: Reports: Abdominal Pain Physical Exam General: Alert Cardiovascular: Regular rate Lungs: Normal air movement Abdomen: Soft, Non Tender, Gravid Extremities:: No edema Estimated gestational size: Appropriate for gestational size Presentation: Cephalic Cervix Dilation (cm): 1.5 Assessment/Plan Active and Suspected Problems (Last Reviewed 07/12/17 @ 09:54 by Sharmaine Luna) Severe preeclampsia (Acute) 21 yo G2P! @ 36w6d with preeclampsia with severe features 1. oligo and elevated bps- severe preeclampsia recommend IOL and magnesium IV. pit and fb 2. epi PRN 3. diabetes- insulin drip 4. EFW approximately 6 lbs -6 1/2 lbs
[2017-07-12 23:21] LABS: Bedside Glucose 90 mg/dL (70-110)
[2017-07-13] VITALS (19 sets, daily range): BP systolic 108–125; BP diastolic 58–76; PULSE 73–93; RESP 16–18; TEMP 35.6–36.6; O2SAT 96–98
[2017-07-13] MEDS: fentaNYL-bupivacaine (epidural) 100 ML BAG EPIDURAL (00:21)
[2017-07-13 00:26] LABS: Bedside Glucose 84 mg/dL (70-110)
[2017-07-13 01:21] LABS: Bedside Glucose 84 mg/dL (70-110)
[2017-07-13] MEDS: Oxytocin 30 units/NS 500 ml 30 UNITS/500 ML IV.SOLN 334 UNITS IV (01:54)
[2017-07-13] MEDS: Morphine 4 MG/ML Syringe IV (01:55)
[2017-07-13] MEDS: Oxytocin 30 units/NS 500 ml 30 UNITS/500 ML IV.SOLN 167 UNITS IV (02:24)
--- NOTE | 2017-07-13 02:26 | PCM.OB.VAG ---
- Problem List (1) Severe preeclampsia Status: Acute (2) Diabetes in Status: Acute Qualifiers: Comment: Class C, sees BJ Shook, growth us every 4 weeks, weekly modified bpp starting at 32 weeks, deliver at 37-38 weeks (3) High-risk in third trimester Status: Acute Comment: PRR BENNIE 08/06/17 Girl: Dolly Liriano boyfriend Alexx (4) History of pre-eclampsia Status: Acute Comment: on baby ASA, has baseline elevated proteinuria (5) Depression Status: Chronic Qualifiers: Comment: zoloft Vaginal Delivery Maternal Presentation: Medically Indicated Induction 21 yo @ 36w6d IOL preeclampsia with severe features, oligo Medical Reason for Induction: Maternal Medical Condition: list: - diabetes oligo, Preeclampsia, eclampsia Amniotic Membrane Rupture Type: Artificial Amniotic Fluid Description: Moderate meconium Final BENNIE: 08/03/17 Gestational age: 37 Weeks and 0 Days Date of Procedure: 07/13/17 Pre-Operative Diagnosis: iol oligo preeclampsia severe Post-Operative Diagnosis: same Surgery/ Procedure Performed: Spontaneous Vaginal Delivery Type of Anesthesia: Epidural Description of Procedure: Patient began pushing and delivered the head in the JAVY presentation. The head was delivered atraumatically and a loose nuchal cord ?1 was identified and easily reduced over the infant's head. The anterior and posterior shoulders delivered without complication followed by the rest of the infant and the infant was placed on the maternal abdomen. Delayed cord clamping was employed for approximately 60 seconds. Cord was clamped and cut and gentle traction was applied to the cord and the placenta delivered spontaneously immediately following it was noted to be intact with three-vessel cord. The perineum and vagina were inspected and noted to have no laceration. EBL was 300 cc. Patient and tolerated delivery well. Presentation: JAVY Placental Delivery Description: Spontaneous Cord Entanglement: Around neck x 1, loose Estimated Blood Loss: 300 Infant A gender: Female Episiotomy Description: None Laceration: None Medications given after delivery: IV Pitocin Complications: None
--- NOTE | 2017-07-13 02:29 | OP.PCM_ITS ---
- Problem List (1) Severe preeclampsia Status: Acute (2) Diabetes in Status: Acute Qualifiers: Comment: Class C, sees BJ Shook, growth us every 4 weeks, weekly modified bpp starting at 32 weeks, deliver at 37-38 weeks (3) High-risk in third trimester Status: Acute Comment: PRR BENNIE 08/06/17 Girl: Dolly Liriano boyfriend Alexx (4) History of pre-eclampsia Status: Acute Comment: on baby ASA, has baseline elevated proteinuria (5) Depression Status: Chronic Qualifiers: Comment: zoloft Vaginal Delivery Maternal Presentation: Medically Indicated Induction 21 yo @ 36w6d IOL preeclampsia with severe features, oligo Medical Reason for Induction: Maternal Medical Condition: list: - diabetes oligo , Preeclampsia, eclampsia Amniotic Membrane Rupture Type: Artificial Amniotic Fluid Description: Moderate meconium Final BENNIE: 08/03/17 Gestational age: 37 Weeks and 0 Days Date of Procedure: 07/13/17 Pre-Operative Diagnosis: iol oligo preeclampsia severe Post-Operative Diagnosis: same Surgery/ Procedure Performed: Spontaneous Vaginal Delivery Type of Anesthesia: Epidural Description of Procedure: Patient began pushing and delivered the head in the JAVY presentation. The head was delivered atraumatically and a loose nuchal cord ?1 was identified and easily reduced over the infant's head. The anterior and posterior shoulders delivered without complication followed by the rest of the and the infant was placed on the maternal abdomen. Delayed cord clamping was employed for approximately 60 seconds. Cord was clamped and cut and gentle traction was applied to the cord and the placenta delivered spontaneously immediately following it was noted to be intact with three-vessel cord. The perineum and vagina were inspected and noted to have no laceration. EBL was 300 cc. Patient and tolerated delivery well. Presentation: JAVY Placental Delivery Description: Spontaneous Cord Entanglement: Around neck x 1, loose Estimated Blood Loss: 300 Infant A gender: Female Episiotomy Description: None Laceration: None Medications given after delivery: IV Pitocin Complications: None
--- NOTE | 2017-07-13 02:47 | PCM.DCVAG ---
Discharge Diet: No Restrictions Discharge Activity: Return to Normal Activity, May not drive while taking narcotic pain medications., May Shower May resume sexual activity in: 4-6 weeks Call your doctor if your incision/area has: Continuous Slow Oozing, Sudden Increased Bleeding, Increased Pain/ Swelling, Increased Redness, Foul Smelling Discharge Additional Instructions: If you experience any of the following, contact your healthcare provider. Bleeding that soaks a pad every hour for 2 hours Fever 100.4 or higher Unrelieved incision or abdominal pain Swelling, redness, discharge or bleeding from your incision or episiotomy site Your incision begins to separate Problems urinating (including inability to urinate or burning while urinating). Visual changes Severe headache Flu-like symptoms Pain or redness in one of both of your breasts Pain, warmth, tenderness or swelling in your legs, especially the calf area Frequent nausea and vomiting Symptoms of depression or anxiety If you experience any of the following, call 911 or go to the nearest Emergency Room. Chest pain Problems breathing Seizure activity Partial or complete paralysis of a body part, slurred speech, weakness or drooping of the face, or a sudden inability to walk or hold your balance Allergies/Adverse Reactions: Allergies No Known Allergies Allergy (Verified 07/12/17 09:53) Medications to take at Discharge blood sugar diagnostic strips See Dose Instructions .ROUTE .MEDSUPPLY #20 ea 03/22/17 insulin lispro (U-100) 100 unit/mL subcutaneous half-unit pen See Label Instructions SC TID ml 03/22/17 pen needle, diabetic 32 gauge x 32 See Dose Instructions .ROUTE .MEDSUPPLY #10 ea 03/22/17 vitamin,calcium,mjnwuigz-lpgj-tqzrw acid tablet 1 tab PO QDAY 03/22/17 Aspirin [Aspirin, Baby] 81 mg PO DAILY@0800 06/09/17 Insulin Glargine [Lantus (BKC)] 14 units SC BID 06/09/17 Sertraline HCl [Zoloft] 100 mg PO DAILY 07/02/17 Blood Pressure Test Kit [Blood Pressure Monitor] 0 .ROUTE .MEDSUPPLY 07/12/17 Labetalol [Trandate (Beta Jaja)] 100 mg PO BID 07/12/17 Metformin HCl [Glucophage] 500 mg PO BIDCM #60 tab 04/27/18 Naproxen [Naprosyn] 250 - 500 mg PO Q8H PRN PRN #30 tab 07/13/17 The following prescriptions were given: Naproxen [Naprosyn] 250 - 500 mg PO Q8H PRN PRN #30 tab PRN Reason: MILD PAIN Metformin HCl [Glucophage] 500 mg PO BIDCM #60 tab Please Follow Up With: Britany Urena MD - [phone] When: Call to make an appointment with your doctor in 6 weeks. If you had elevated Blood pressure or 4th degree laceration you will need to be seen in 2 weeks.
--- NOTE | 2017-07-13 02:48 | DCINST_ITS ---
Discharge Diet: No Restrictions Discharge Activity: Return to Normal Activity, May not drive while taking narcotic pain medications., May Shower May resume sexual activity in: 4-6 weeks Call your doctor if your incision/area has: Continuous Slow Oozing, Sudden Increased Bleeding, Increased Pain/ Swelling, Increased Redness, Foul Smelling Discharge Additional Instructions: If you experience any of the following, contact your healthcare provider. * Bleeding that soaks a pad every hour for 2 hours * Fever 100.4 or higher * Unrelieved incision or abdominal pain * Swelling, redness, discharge or bleeding from your incision or episiotomy site * Your incision begins to separate * Problems urinating (including inability to urinate or burning while urinating) . * Visual changes * Severe headache * Flu-like symptoms * Pain or redness in one of both of your breasts * Pain, warmth, tenderness or swelling in your legs, especially the calf area * Frequent nausea and vomiting * Symptoms of depression or anxiety If you experience any of the following, call 911 or go to the nearest Emergency Room. * Chest pain * Problems breathing * Seizure activity * Partial or complete paralysis of a body part, slurred speech, weakness or drooping of the face, or a sudden inability to walk or hold your balance Allergies/Adverse Reactions: Allergies No Known Allergies Allergy (Verified 07/12/17 09:53) Medications to take at Discharge blood sugar diagnostic strips See Dose Instructions .ROUTE .MEDSUPPLY #20 ea 07/04 insulin lispro (U-100) 100 unit/mL subcutaneous half-unit pen See Label Instructions SC TID ml 03/22/17 pen needle, diabetic 32 gauge x See Dose Instructions .ROUTE .MEDSUPPLY # 10 ea 03/22/17 vitamin,calcium,xslxande-whgz-zfctw acid tablet 1 tab PO QDAY 03/22/17 Aspirin [Aspirin, Baby] 81 mg PO DAILY@0800 06/09/17 Insulin Glargine [Lantus (BKC)] 14 units SC BID 06/09/17 Sertraline HCl [Zoloft] 100 mg PO DAILY 07/02/17 Blood Pressure Test Kit [Blood Pressure Monitor] 0 .ROUTE .MEDSUPPLY 07/12/17 Labetalol [Trandate (Beta Jaja)] 100 mg PO BID 07/12/17 Metformin HCl [Glucophage] 500 mg PO BIDCM #60 tab 07/13/17 Naproxen [Naprosyn] 250 - 500 mg PO Q8H PRN PRN #30 tab 07/13/17 The following prescriptions were given: Naproxen [Naprosyn] 250 - 500 mg PO Q8H PRN PRN #30 tab PRN Reason: MILD PAIN Metformin HCl [Glucophage] 500 mg PO BIDCM #60 tab Please Follow Up With: Britany Urena MD - [phone] When: Call to make an appointment with your doctor in 6 weeks. If you had elevated Blood pressure or 4th degree laceration you will need to be seen in 2 weeks.
[2017-07-13 02:56] LABS: Bedside Glucose 102 mg/dL (70-110)
[2017-07-13] MEDS: Ondansetron 4 MG/2 ML Vial IV (04:54)
[2017-07-13] MEDS: 0.9% Saline Lock 10 ML Syringe IV ×2 (04:54→22:17)
--- NOTE | 2017-07-13 05:39 | NURSING ---
epidural catheter removed; blue tip intact
[2017-07-13 07:21] LABS: Bedside Glucose 157 mg/dL (70-110)
[2017-07-13 08:30] LABS: Bedside Glucose 147 mg/dL (70-110)
[2017-07-13] MEDS: Sertraline 100 MG Tablet PO (10:19)
[2017-07-13] MEDS: Naproxen 250 MG Tablet PO ×2 (10:19→18:54)
[2017-07-13] MEDS: Prenatal Vits Tablet 1 TABLET PO (10:19)
[2017-07-13] MEDS: Labetalol 100 MG Tablet PO ×2 (10:20→22:18)
[2017-07-13] MEDS: Magnesium Sulfate 20 GM/500 ML BAG IV ×2 (10:21→21:16)
[2017-07-13 10:51] LABS: Bedside Glucose 96 mg/dL (70-110)
--- NOTE | 2017-07-13 16:11 | NURSING ---
Pt states feels wavy, dizzy when standing. Infante in place. Pt reminded to ask before ambulating
[2017-07-13 16:45] LABS: Bedside Glucose 119 mg/dL (70-110)
[2017-07-13 22:25] LABS: Bedside Glucose 111 mg/dL (70-110)
[2017-07-14] VITALS (8 sets, daily range): BP systolic 113–147; BP diastolic 55–87; PULSE 68–82; RESP 16–20; TEMP 35.9–36.7; O2SAT 95–99
[2017-07-14] MEDS: 0.9% Saline Lock 10 ML Syringe IV (02:17)
[2017-07-14 08:36] LABS: Bedside Glucose 74 mg/dL (70-110)
[2017-07-14] MEDS: Labetalol 100 MG Tablet PO (09:59)
[2017-07-14] MEDS: Sertraline 100 MG Tablet PO (09:59)
--- NOTE | 2017-07-14 10:38 | PN.OBGYN_ITS ---
Patient Problems: Active and Suspected Problems (Last Reviewed 07/12/17 @ 09:54 by Sharmaine Luna) Severe preeclampsia (Acute) Subjective: Patient without complaints. Denies any PIH symptoms. Bottlefeeding. Blood sugars okay and back on metformin. Plans to continue labetalol for several weeks at home. 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 - Physical Exam Vital Signs AF, VSS Temp Pulse Resp BP Pulse Ox 97.1 F L 70 20 H 136/87 H 95 07/14/17 07:29 07/14/17 10:01 07/14/17 07:29 07/14/17 10:01 07/14/17 02:17 Oxygen Delivery Method Room Air Weight: 249 lb 5.485 oz Body Mass Index (BMI) 44.1 Finger Stick Blood Glucose 248 Intake and Output for Last 24 Hours 07/12/17 07/13/17 07/14/17 23:59 23:59 23:59 Intake Total 150 / 150 3207.7 / 3207.7 315 / 315 Output Total 200 / 200 3650 / 3650 700 / 700 Balance -50 / -50 -442.3 / -442.3 -385 / -385 POC Glucose 07/14/17 07/13/17 07/13/17 08:29 22:09 16:39 POC Glucose 74 111 H 119 H 07/13/17 10:45 POC Glucose 96 Medical Necessity - Tobacco Use Smoking Status: Never smoker Assessment/Plan Active and Suspected Problems (Last Reviewed 07/12/17 @ 09:54 by Sharmaine Luna) Severe preeclampsia (Acute) Doing well. Will release to home later today on Glucophage and labetalol if baby is able to be discharged.
== END 2017-07-14 16:30 | disposition home or self-care (01) | DRG 372 ==
LOC: WP 10:46
PROVIDERS: Admitting Provider Obstetrics & Gynecology; Visit Provider Obstetrics & Gynecology
DX: O14.14 Severe pre-eclampsia complicating childbirth (principal); O24.12 Pre-existing type 2 diabetes mellitus, in childbirth; O69.81X0 Labor and delivery complicated by cord around neck, without compression, not applicable or unspecified; E11.9 Type 2 diabetes mellitus without complications; O99.344 Other mental disorders complicating childbirth; F32.9 Major depressive disorder, single episode, unspecified; Z37.0 Single live birth; Z3A.37 37 weeks gestation of pregnancy; O77.0 Labor and delivery complicated by meconium in amniotic fluid; Z79.899 Other long term (current) drug therapy; E78.5 Hyperlipidemia, unspecified
CPT/HCPCS: 59025; 59050; 82565; 82570; 82962; 84156; 84450; 84460; 84550; 85027; 85610; 85730; 86850; 86900; 99218; J7120; A4216; G0378; J2405; J7799

== ENCOUNTER → 2017-07-25 16:14 | Outpatient (CLI) | payer MEDICAID, SELFPAY | PROVIDERS: Family Provider Family Medicine; PCP Family Medicine; Visit Provider Nurse Practitioner Women's Health | DX: R30.0 Dysuria (principal) | CPT/HCPCS: 87086; 87088 ==

== ENCOUNTER 2017-08-03 21:41 | Emergency (ER) | payer MEDICAID, SELFPAY ==
[2017-08-03 21:41] VITALS: BP 148/96; PULSE 74; RESP 16; TEMP 35.8; BMI 41.5
--- NOTE | 2017-08-03 22:05 | ED.DCSUM_ITS ---
- ER Visit Summary Date of Service: 08/03/17 Chief Complaint: Frontal and occipital headache History of Present Illness: The patient is a 21 F who is a poor informant and vague when answering questions. She stated I believed the labetalol was discontinued by my doctor. Patient complains of blurred vision. She denied double vision or loss of vision. She denies muffled hearing or ringing of her ears. She has trouble with speech or swallowing. She denies chest pain or back pain. She denies shortness of breath. She denies dyspnea on exertion, orthopnea or PND. She complains of intermittent nausea without vomiting or diarrhea. She denies dysuria, frequency, urgency or hematuria. She denies any paresthesia, anesthesia motors. Denies problems with her balance. She delivered approximately 2-3 weeks ago. Patient denies any history of head trauma. She states she has history of migraines. She states this headache is different than her typical headache. Physical Examination: Blood pressure is 148/96. Predelivery blood pressure was 117/59. Head is atraumatic normocephalic. Pupils are equal round reactive. Extraocular muscles are intact. There is no photophobia. There is no evidence of papilledema. TMs are pearly white with landmarks noted. Nares patent with no drainage. Posterior pharynx without erythema or exudate. Uvula is midline. There is no dysphonia or dysphasia. Trachea is midline. There is no stridor with auscultation of the neck. Heart is regular without murmur, gallop or rub. S1 and S2 are normal. Lungs are clear to auscultation with good movement of air bilaterally. Abdomen is soft and nontender. Bowel sounds are present. There is no guarding or rebound tenderness. There is no CVA tenderness. Patient is alert and oriented ?3. Motor is 5 over 5. Sensory is intact. DTRs are symmetric with no clonus or Babinski sign. Reflexes are brisk. Cranial 2 through 12 are intact. Cerebellar testing is normal. Test Results: White count is unremarkable. Coags are unremarkable. Hepatic profile is unremarkable. UA is consistent with infection with pyuria hematuria and 1+ bacteria. There was only 0-5 epithelial cells. BMP is pending secondary to significant lipemia. I was informed by lab that her blood had to be diluted. BUN is 20 with an anion gap of 12. Creatinine is 1.8 with a GFR of 80. Glucose elevated 161. Emergency Department Course and Treatment: IV was placed. She was given 10 mg of labetalol IV push. Since she is hyperreflexic will page the physician on- call for Dr. Dustin Calixto discussed use of mag sulfate. Review of discharge summary reveals patient has severe preeclampsia. Treatment Plan: Blood pressure has normalized after 10 mg of labetalol IV push. Case was discussed with Dr. Britany Urena. Patient was informed she must take the labetalol every day as prescribed. She states she has medicine at home. She now admits she discontinued taking the medication. She also was informed that she has a urinary tract infection. She received a dose of Rocephin in the emergency department and was discharged with Macrobid. Disposition: Discharged to home with outpatient follow-up with Dr. Britany Urena. Impression: 1. -induced hypertension 2. Hyperglycemia in a nondiabetic 3. Urinary tract infection This note was generated with [employer] dictation software. It may contain incorrect words, spelling, and punctuation that were not noted in review of the chart prior to signing ED Disposition - Plan for ED Patient: Disposition: Home or Assisted Living Chief Complaint: Headache Instructions: ED HTN Established, ED UTI Cystitis Female Prescriptions: Nitrofurantoin Macrocrystals [Macrobid] 100 mg PO Q12 #10 cap Referrals: Bryant Cardona MD [Primary Care Provider] - Britany Urena MD [STAFF PHYSICIAN] - 3-5 Days Additional Instructions: You were prescribed labetalol 100 mg to be taken twice a day. You must take labetalol as instructed until the medicine is discontinued by your doctor, Dr. Britany Urena Your blood was very rich in fat. You must follow-up with your primary care physician Dr. Cardona for further testing to determine appropriate treatment Prescription was electronically transmitted to [facility] pharmacy and should be ready for pickup tomorrow morning.
[2017-08-03 22:09] LABS: Mucous, Urine 0 SEEN /hpf (<or=2+)
[2017-08-03 22:15] LABS: Absolute Neutrophil Count 4.9 X10^3/uL (2.0-7.7); Basophil# 0.03 X10^3/uL; Basophil% 0.4 % (0-1); Eosinophil# 0.11 X10^3/uL; Eosinophils% 1.4 % (0-5); Hematocrit 38.8 % (37-47); Hemoglobin 13.6 g/dl (12.0-15.0); Lymphocyte % 30.7 % (19-41); Mean Corp Hgb Conc 35.1 g/gl (32-36); Mean Corpuscular Volume 82.7 fL (81-99); Mean Platelet Vol. 11.2 fl (6.2-12.0); Monocyte# 0.37 X10^3/uL; Monocyte% 4.7 % (0-10); Neutrophil % 62.5 % (47-70); Platelet Count 318 K/mm3 (150-450); RBC Distribution Width CV 14.3 % (11.6-14.6); RBC Distribution Width SD 42.8 fl (35.1-43.9); Red Blood Count 4.69 M/mm3 (4.2-5.4); White Blood Count 7.8 K/mm3 (4.4-11.0)
[2017-08-03 22:20] LABS: POSITIVE COUNT NO; POSITIVE DIFFERENTIAL NO; POSITIVE MORPHOLOGY NO
[2017-08-03 22:22] LABS: Color, Urine Yellow (Yellow); Glucose, Dipstick Normal (Normal); Ketone-Dipstick Negative (Negative); Leukocyte Esterase-Dipstick 500 /ul (Negative); Nitrite-Dipstick Negative (Negative); Occult Blood-Urine 150 /ul (Negative); Protein-Dipstick 30 mg/dl (Negative); Urine Bilirubin Dipstick Negative (Negative); Urine Clarity Sl. Cloudy (Clear); Urine Urobilinogen Normal (Normal)
[2017-08-03 22:27] LABS: International Normalized Ratio 0.9; Prothrombin Time (Protime)PT. 12.4 SECONDS (11.7-14.9)
[2017-08-03 22:28] LABS: Partial Thromboplast Time 38.3 Seconds (24.1-36.2)
[2017-08-03 22:52] VITALS: BP 141/86; PULSE 81; RESP 18; O2SAT 97
[2017-08-03 23:27] LABS: Bacteria 1+ /hpf (None Seen)
[2017-08-03 23:28] LABS: Red Blood Cells-Urine 5-10 SEEN /hpf (0-5); Squamous Epithelial Cells - UA 0-5 SEEN /hpf (5-10); White Blood Cells 25-50 SEEN /hpf (0-5)
[2017-08-03 23:55] LABS: AST(SGOT) 46 U/L (15-37); Alanine Aminotransfer ALT/SGPT 45 U/L (13-56); Albumin, Serum 3.6 g/dL (3.2-5.0); Alkaline Phosphatase 82 U/L (45-117); Anion Gap 12 (5-15); BUN 15 mg/dL (7-18); BUN/Creat Ratio 13.6 RATIO (10-20); Bilirubin, Direct < 0.05 mg/dL (0.00-0.30); Calcium,Total 7.9 mg/dL (8.5-10.1); Chloride 109 mmol/L (98-107); EST Glomerular Filtration Rate 66 mL/min (>60); Est Glom Filt Rate - Afr Amer 80 mL/min (>60); Estimated Creatinine Clearance 66.92 ml/min; Glucose 161 mg/dL (74-106); Potassium 4.1 mmol/L (3.5-5.1); Protein, Total 7.6 g/dL (6.4-8.2); Sodium Level 141 mmol/L (136-145); Uric Acid 9.1 mg/dL (2.6-6.0)
[2017-08-04 00:54] VITALS: BP 139/74; BP 139/78; RESP 18
== END 2017-08-04 00:55 | disposition home or self-care (01) ==
PROVIDERS: Emergency Provider Emergency Medicine; Family Provider Family Medicine; PCP Family Medicine
DX: O13.5 Gestational [pregnancy-induced] hypertension without significant proteinuria, complicating the puerperium (principal); O86.20 Urinary tract infection following delivery, unspecified; O90.89 Other complications of the puerperium, not elsewhere classified; R73.9 Hyperglycemia, unspecified; G43.909 Migraine, unspecified, not intractable, without status migrainosus; E78.5 Hyperlipidemia, unspecified; O99.215 Obesity complicating the puerperium; E66.9 Obesity, unspecified; Z87.59 Personal history of other complications of pregnancy, childbirth and the puerperium; Z91.14 Patient's other noncompliance with medication regimen; Z79.899 Other long term (current) drug therapy
CPT/HCPCS: 80048; 80076; 81001; 84550; 85025; 85610; 85730; 87086; 87088; 96365; 96374; 99283; A4216; J0696

== ENCOUNTER 2017-09-20 03:42 | Inpatient (IN) | payer MEDICAID, SELFPAY ==
[2017-09-20] VITALS (13 sets, daily range): BP systolic 123–154; BP diastolic 66–89; PULSE 66–116; RESP 16–24; TEMP 36.5–37.3; O2SAT 94–100; BMI 40.9; BMI 41.0
--- NOTE | 2017-09-20 04:01 | CT_ITS ---
STUDY: CT ABDOMEN AND PELVIS WITH CONTRAST REASON FOR EXAM: Female, 22 years old. Nausea vomiting and upper abdominal pain RADIATION DOSAGE (If Supplied By Facility): CTDIvol = ( 22.03 ) mGy, DLP = ( 1289.97 ) mGycm TECHNIQUE: Transaxial images were obtained from the dome of the diaphragm to the symphysis pubis without oral contrast. 100mL ml of Isovue 300 contrast was administered. Sagittal and coronal images were reconstructed. Individualized dose optimization techniques were used for this CT. COMPARISON: August 14, 2016 FINDINGS: The lung bases are clear. The liver is normal with no dilated intrahepatic biliary radicles. The gallbladder is normal with no gallstones and no pericholecystic fluid collection or streakiness. The spleen, and both adrenals are normal. The pancreatic head is enlarged with nonenhancing streaks of low attenuation within it. The rest of the pancreatic parenchyma enhances. There is peripancreatic fluid. This is limited around the pancreatic head.. The kidneys are normal with no masses, calculi or hydronephrosis. The stomach is normal. There is no bowel distention, acute appendicitis or diverticulitis. No abnormally constricting large bowel lesions. The abdominal wall is intact. There is no ascites, free intraperitoneal air or any evidence of epiploic appendagitis. The vascular structures in the retroperitoneum are normal The bones and joints seen are normal with no osteolytic or osteoblastic changes There is no retrocrural, retroperitoneal or mesenteric adenopathy. There is no mesenteric mistiness The urinary bladder is normal.. The uterus is normal. A 2.7 cm left ovarian cyst. No free fluid in the cul-de-sac. There is no inguinal or pelvic adenopathy and there is no inguinal hernia . IMPRESSION Acute interstitial pancreatitis (with fluid collection) involving mainly the pancreatic head with nonenhancing linear and curvilinear areas within the inflamed pancreatic parenchyma. These areas most likely represent necrosis A 2.7 cm left ovarian cyst. Electronically Signed: Jean Pierre Schwab, at 6:20 EDT Tel , Service support , CT/Abdomen/Pelvis W IV Cont ONLY
--- NOTE | 2017-09-20 04:02 | ED.VISSUMM ---
- ER Visit Summary Date of Service: 09/20/17 Chief Complaint: abdominal pain, nausea and vomiting History of Present Illness: The patient is a 22 F who presents for diffuse abdominal pain with nausea, vomiting and diarrhea since last evening. Patient states she is having sharp throbbing pain, worse in the epigastrium but also diffuse. She denies fever, urinary symptoms, back pain, or other complaints but rates her pain at 10 out of 10. Pain is worse with movement. She is 9 weeks from a spontaneous vaginal delivery. History of diabetes, pancreatitis, and hypertension. Patient denies any tobacco or alcohol use currently. Physical Examination: Vital signs: afebrile, hemodynamically stable, no hypoxia on room air General: well nourished, well developed, appears uncomfortable, sitting upright on the edge of the bed Skin: warm, dry, no rash, no pallor HEENT: normocephalic and atraumatic; PERRL, EOMI, moist mucous membranes Cardiovascular: regular rate and rhythm without murmurs, no peripheral edema, 2+ pulses all distal extremities Respiratory: No increased work of breathing, lungs are clear to auscultation bilaterally, no rales, rhonchi or wheezing Abdominal: Abdomen is soft, tender to light palpation, maximal tenderness in the epigastrium, with hypoactive bowel sounds, no guarding or rebound, no masses MSK: Moves all extremities, no deformities, normal strength Neuro: Awake and alert, oriented ?4. No facial droop, sensation and motor function intact and symmetric Test Results: ] Abnormal Lab Results 09/20/17 09/20/17 09/20/17 03:46 03:46 03:46 WBC 13.1 H RBC 4.68 Hgb 14.0 Hct 37.6 MCV 80.3 L MCH 29.5 MCHC 36.1 H RDW 15.6 H RDW Differential 45.2 H Plt Count 314 MPV 10.7 Immature Gran % (Auto) 0.200 Neut % (Auto) 81.5 H Lymph % (Auto) 6.6 L Bea[place]gard % (Auto) 10.8 H Eos % (Auto) 0.7 Baso % (Auto) 0.2 Absolute Neuts (auto) 10.7 H Absolute Lymphs (auto) 0.86 Total Counted Not Reportable Sodium 141 Potassium 4.6 Chloride 104 Carbon Dioxide 23.0 Anion Gap 14 BUN 14 Creatinine 0.84 Estim Creat Clear Calc 86.90 Est GFR (MDRD) Af Amer 109 Est GFR (MDRD) Non-Af 90 BUN/Creatinine Ratio 16.7 Glucose 160 H Lactic Acid Calcium 9.1 Total Bilirubin 0.30 AST 18 ALT 22 Alkaline Phosphatase 73 Total Protein 8.3 H Albumin 3.8 Globulin 4.5 H Albumin/Globulin Ratio 0.8 L Lipase 765 H Urine Color Yellow Urine Clarity Clear Urine pH 6.0 Ur Specific [place] 1.020 Urine Protein 100 H Urine Glucose (UA) Normal Urine Ketones Negative Urine Occult Blood 250 H Urine Nitrite Negative Urine Bilirubin Negative Urine Urobilinogen Normal Ur Leukocyte Esterase 25 H Urine RBC 0-5 SEEN Urine WBC 0-5 SEEN Ur Squamous Epith Cells 0-5 SEEN Urine Bacteria 0 SEEN Urine Mucus 0 SEEN Urine Test Negative 09/20/17 04:06 WBC RBC Hgb Hct MCV MCH MCHC RDW RDW Differential Plt Count MPV Immature Gran % (Auto) Neut % (Auto) Lymph % (Auto) [place] % (Auto) Eos % (Auto) Baso % (Auto) Absolute Neuts (auto) Absolute Lymphs (auto) Total Counted Sodium Potassium Chloride Carbon Dioxide Anion Gap BUN Creatinine Estim Creat Clear Calc Est GFR (MDRD) Af Amer Est GFR (MDRD) Non-Af BUN/Creatinine Ratio Glucose Lactic Acid 0.7 Calcium Total Bilirubin AST ALT Alkaline Phosphatase Total Protein Albumin Globulin Albumin/Globulin Ratio Lipase Urine Color Urine Clarity Urine pH Ur Specific [place] Urine Protein Urine Glucose (UA) Urine Ketones Urine Occult Blood Urine Nitrite Urine Bilirubin Urine Urobilinogen Ur Leukocyte Esterase Urine RBC Urine WBC Ur Squamous Epith Cells Urine Bacteria Urine Mucus Urine Test Clinical Impression(s) from Imaging Studies Abdomen/Pelvis CT 09/20/17 04:01 Emergency Department Course and Treatment: Patient was given IV fluids, Zofran and morphine. Because of her significant discomfort and tenderness to light palpation, labs and CT of the abdomen and pelvis were performed. Patient had leukocytosis. No electrolyte derangements. Unable to obtain lipase secondary to significant lipemia, interfering with lab assays. CT abdomen and pelvis showed acute pancreatitis. Patient required multiple doses of opiates for pain control. Patient was made n.p.o. and given fluids. She was discussed with Dr. Ann and admitted for further management of acute pancreatitis. Treatment Plan: [] Disposition: [] Impression: Acute pancreatitis This note was generated with Dragon dictation software. It may contain incorrect words, spelling, and punctuation that were not noted in review of the chart prior to signing ED Disposition - Plan for ED Patient: Disposition: Acute Care Hospital [facility] Chief Complaint: Abd Pain
[2017-09-20 04:07] LABS: Bacteria 0 SEEN /hpf (None Seen); Mucous, Urine 0 SEEN /hpf (<or=2+)
[2017-09-20] MEDS: Ondansetron 4 MG/2 ML Vial IV ×3 (04:08→20:56)
[2017-09-20] MEDS: 0.9% Normal Saline 1,000 ML 1000 ML IV (04:08)
[2017-09-20] MEDS: Morphine 4 MG/ML Syringe IV ×3 (04:09→07:09)
[2017-09-20 04:13] LABS: Color, Urine Yellow (Yellow); Glucose, Dipstick Normal (Normal); Ketone-Dipstick Negative (Negative); Leukocyte Esterase-Dipstick 25 /ul (Negative); Nitrite-Dipstick Negative (Negative); Occult Blood-Urine 250 /ul (Negative); Protein-Dipstick 100 mg/dl (Negative); Urine Bilirubin Dipstick Negative (Negative); Urine Clarity Clear (Clear); Urine Urobilinogen Normal (Normal)
[2017-09-20 04:15] LABS: Internal QC Validated? YES +Cl - CLEAR BKGD; Pregnancy, Urine Negative Negative
[2017-09-20 04:23] LABS: Red Blood Cells-Urine 0-5 SEEN /hpf (0-5); Squamous Epithelial Cells - UA 0-5 SEEN /hpf (5-10); White Blood Cells 0-5 SEEN /hpf (0-5)
[2017-09-20 04:27] LABS: Absolute Lymphocyte Count 0.86 X10^3/ul (0.83-4.51); Absolute Neutrophil Count 10.7 X10^3/uL (2.0-7.7); Basophil# 0.03 X10^3/uL; Basophil% 0.2 % (0-1); Eosinophil# 0.09 X10^3/uL; Eosinophils% 0.7 % (0-5); Hematocrit 37.6 % (37-47); Lymphocyte # 0.86 X10^3/ul (4.0); Lymphocyte % 6.6 % (19-41); Mean Corpuscular Volume 80.3 fL (81-99); Mean Platelet Vol. 10.7 fl (6.2-12.0); Monocyte# 1.41 X10^3/uL; Monocyte% 10.8 % (0-10); Neutrophil # 10.69 X10^3/uL (2.7-7.7); Neutrophil % 81.5 % (47-70); Platelet Count 314 K/mm3 (150-450); RBC Distribution Width CV 15.6 % (11.6-14.6); RBC Distribution Width SD 45.2 fl (35.1-43.9); Red Blood Count 4.68 M/mm3 (4.2-5.4); White Blood Count 13.1 K/mm3 (4.4-11.0)
[2017-09-20 04:28] LABS: Differential Indicated SCAN CRITERIA MET; Mean Corp Hgb Conc 36.1 g/gl (32-36); Mean Corpuscular Hgb 29.5 pg (27.0-32.0); POSITIVE COUNT YES; POSITIVE DIFFERENTIAL NO; POSITIVE MORPHOLOGY YES
[2017-09-20 05:38] LABS: ALB/GLOB Ratio 0.8 RATIO (0.9-2.4); AST(SGOT) 18 U/L (15-37); Alanine Aminotransfer ALT/SGPT 22 U/L (13-56); Albumin, Serum 3.8 g/dL (3.2-5.0); Alkaline Phosphatase 73 U/L (45-117); Anion Gap 14 (5-15); BUN 14 mg/dL (7-18); BUN/Creat Ratio 16.7 RATIO (10-20); Calcium,Total 9.1 mg/dL (8.5-10.1); Chloride 104 mmol/L (98-107); Creatinine, Serum 0.84 mg/dL (0.55-1.02); EST Glomerular Filtration Rate 90 mL/min (>60); Est Glom Filt Rate - Afr Amer 109 mL/min (>60); Globulin 4.5 g/dL (2.2-4.2); Glucose 160 mg/dL (74-106); Potassium 4.6 mmol/L (3.5-5.1); Protein, Total 8.3 g/dL (6.4-8.2); Sodium Level 141 mmol/L (136-145)
[2017-09-20 06:12] LABS: Lipase 765 U/L (73-393)
[2017-09-20 06:12] LABS: Lactic Acid 0.7 mmol/L (0.4-2.0)
--- NOTE | 2017-09-20 06:38 | PCM.HP.STD ---
Problem List (1) Depression Status: Chronic Qualifiers: Comment: zoloft (2) Type 2 diabetes mellitus Status: Chronic Qualifiers: (3) Migraine headache Status: Chronic Qualifiers: (4) Hyperlipidemia Status: Chronic (5) Recurrent acute pancreatitis Status: Acute History of Present Illness Date of Admission: 09/20/17 Chief Complaint: abdominal pain associated with nausea and vomiting The patient is a 22 year old F with a past medical history of diabetes mellitus type 2, migraine cephalgia, hyperlipidemia, morbid obesity and pancreatitis in the past, possibly due to fenofibrate who presented to the ED at [facility] on 09/20/17 c/o abdominal pain associated with nausea and vomiting. The N/V just started in the past 24 hours but she has been having abdominal pain for the past week which she has associated with stress over finding out her grandfather is dying......she thought she was having panic attacks. She denies any alcohol use. she is 9 weeks post and 3 weeks ago she was started on an estrogen patch. She was admitted to [facility] in July of 2016 and during that admission had a MRCP that showed a normal pancreatic duct. A IgG subclass 4 was ordered but for some reason it was cancelled by the lab. She denies any fevers or chills. Vital signs at presentation to the emergency room are temperature 97.9, pulse rate 76, blood pressure 146/83, respiratory rate 18 and she is 96-100% saturated on room air. CBC shows a white blood cell count of 13.1 with 81.5% neutrophils. Platelets and hemoglobin are within normal limits. The electrolytes are within normal limits and BUN is 14 with a creatinine of 0.84. Random blood sugar is 160. Lipase was 765. A CT scan of the abdomen and pelvis showed acute interstitial pancreatitis with fluid collection involving mainly the pancreatic head with nonenhancing linear and curvilinear areas within the inflamed pancreatic parenchyma. These areas most likely represent pancreatic necrosis. An incidental finding was a 2.7 cm left ovarian cyst. She is very tender to palpation over the entire abdomen. Past Medical History Past Medical History (Chronic Problems): Chronic Problems (Last Reviewed 07/25/17 @ 14:54 by Sydni Chen) Depression (Chronic) zoloft Type 2 diabetes mellitus (Chronic) Migraine headache (Chronic) Hyperlipidemia (Chronic) Medical History: Medical History (Last Reviewed 07/25/17 @ 14:54 by Sydni Chen) Depression (Chronic) F32.9 zoloft Type 2 diabetes mellitus (Chronic) E11.9 Migraine headache (Chronic) G43.909 Hyperlipidemia (Chronic) E78.5 Acute pancreatitis (Resolved) K85.90 Allergies No Known Allergies Allergy (Verified 09/20/17 03:46) Home Medications: Ambulatory Orders Medication Instructions Recorded Sertraline HCl [Zoloft] 100 mg PO DAILY 07/02/17 Labetalol [Trandate (Beta Jaja)] 100 mg PO BID 07/12/17 Metformin HCl [Glucophage] 500 mg PO BIDCM #60 tab 07/13/17 Surgical History: Surgical History (Last Reviewed 07/25/17 @ 14:54 by Sydni Chen) carpal tunnel Surgical History: no surgical history Psychiatric History: Anxiety, 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: - - recent vaginal delivery 9 weeks ago with pre-eclampsia and PG induced HTN Lives: Spouse/ Significant Other, With Family Smoking Status: Never smoker Tobacco Use: Non-smoker Alcohol: None Drugs: None - *Family History Maternal Family History: Family History (Last Reviewed 09/20/17 @ 06:50 by Debbie Ann DO) Mother Diabetes Grandmother Diabetes Grandfather Diabetes Father hyperlipidemia History Items: Diabetes Paternal Family History: Family History (Last Reviewed 09/20/17 @ 06:50 by Debbie Ann DO) Mother Diabetes Grandmother Diabetes Grandfather Diabetes Father hyperlipidemia History Items: Diabetes Review of Systems Constitutional: Denies: Chills, Fever Eyes: Denies: Vision Change HEENT: Denies: Head Aches, Sinus Congestion, Sinus Drainage Cardiovascular: Denies: Chest Pain, Palpitations Respiratory: Denies: Cough, Shortness of breath at rest, Sputum production Gastrointestinal: Reports: Abdominal Pain - also having pain in the back, Nausea, Vomiting Genitourinary: Denies: Dysuria Gynecological: Denies: Vaginal bleeding, Vaginal discharge Musculoskeletal: Denies: Joint Pain, Joint Tenderness Skin: Denies: Jaundice Neurological: Denies: Numbness, Tingling, Focal weakness Psychiatric: Reports: Anxiety, Depression Hematologic/ Lymphatic: Denies: Hx of blood clot VTE Information - Inpt Only VTE Present on Admission: No VTE Mechan Device Prophylaxis: Knee High JAIMEE Hose VTE Pharm Prophylaxis ordered?: Yes Patient Problems: Active and Suspected Problems (Last Reviewed 07/25/17 @ 14:54 by Sydni Chen) Recurrent acute pancreatitis (Acute) - Physical Exam General: Alert, Oriented x3, Cooperative, - - looks to be in pain and not to feel well HEENT: Atraumatic, PERRLA, EOMI, Normocephalic Oral: Dry Mucosa Neck: Supple, No Nodes, Trachea Midline Lungs: Clear to auscultation, Diminished - in the bases Cardiovascular: Regular rate, Regular Rhythm, Normal S1, Normal S2, No murmurs, No rub noted, No Gallop Abdomen: Soft, Non-Distended, Hypoactive Bowel Sounds, Tender - diffusely but, marked tenderness in the epigastric and LUQ's Extremities: No clubbing, No cyanosis, No edema, No Calf Tenderness, Peripheral Pulses Normal Neurological: Cranial nerves II-XII grossly intact, Neuro grossly intact Psych/Mental Status: Normal Affect, Flat Affect Vital Signs Temp Pulse Resp BP Pulse Ox 97.9 F 78 16 139/74 H 96 09/20/17 03:42 09/20/17 06:03 09/20/17 06:03 09/20/17 06:03 09/20/17 06:03 Oxygen Delivery Method Room Air Weight: 231 lb 0.711 oz Body Mass Index (BMI) 40.9 Finger Stick Blood Glucose 248 Laboratory Tests Past 24 Hrs 09/20/17 09/20/17 09/20/17 03:46 03:46 03:46 WBC 13.1 H RBC 4.68 Hgb 14.0 Hct 37.6 MCV 80.3 L MCH 29.5 MCHC 36.1 H RDW 15.6 H RDW Differential 45.2 H Plt Count 314 MPV 10.7 Immature Gran % (Auto) 0.200 Neut % (Auto) 81.5 H Lymph % (Auto) 6.6 L [place] % (Auto) 10.8 H Eos % (Auto) 0.7 Baso % (Auto) 0.2 Absolute Neuts (auto) 10.7 H Absolute Lymphs (auto) 0.86 Total Counted Not Reportable Sodium 141 Potassium 4.6 Chloride 104 Carbon Dioxide 23.0 Anion Gap 14 BUN 14 Creatinine 0.84 Estim Creat Clear Calc 86.90 Est GFR (MDRD) Af Amer 109 Est GFR (MDRD) Non-Af 90 BUN/Creatinine Ratio 16.7 Glucose 160 H Lactic Acid Calcium 9.1 Total Bilirubin 0.30 AST 18 ALT 22 Alkaline Phosphatase 73 Total Protein 8.3 H Albumin 3.8 Globulin 4.5 H Albumin/Globulin Ratio 0.8 L Lipase 765 H Urine Color Yellow Urine Clarity Clear Urine pH 6.0 Ur Specific [place] 1.020 Urine Protein 100 H Urine Glucose (UA) Normal Urine Ketones Negative Urine Occult Blood 250 H Urine Nitrite Negative Urine Bilirubin Negative Urine Urobilinogen Normal Ur Leukocyte Esterase 25 H Urine RBC 0-5 SEEN Urine WBC 0-5 SEEN Ur Squamous Epith Cells 0-5 SEEN Urine Bacteria 0 SEEN Urine Mucus 0 SEEN Urine Test Negative 09/20/17 04:06 WBC RBC Hgb Hct MCV MCH MCHC RDW RDW Differential Plt Count MPV Immature Gran % (Auto) Neut % (Auto) Lymph % (Auto) [place] % (Auto) Eos % (Auto) Baso % (Auto) Absolute Neuts (auto) Absolute Lymphs (auto) Total Counted Sodium Potassium Chloride Carbon Dioxide Anion Gap BUN Creatinine Estim Creat Clear Calc Est GFR (MDRD) Af Amer Est GFR (MDRD) Non-Af BUN/Creatinine Ratio Glucose Lactic Acid 0.7 Calcium Total Bilirubin AST ALT Alkaline Phosphatase Total Protein Albumin Globulin Albumin/Globulin Ratio Lipase Urine Color Urine Clarity Urine pH Ur Specific [place] Urine Protein Urine Glucose (UA) Urine Ketones Urine Occult Blood Urine Nitrite Urine Bilirubin Urine Urobilinogen Ur Leukocyte Esterase Urine RBC Urine WBC Ur Squamous Epith Cells Urine Bacteria Urine Mucus Urine Test Assessment/Plan All Active Problems (Last Reviewed 07/25/17 @ 14:54 by Sydni Chen) Severe preeclampsia (Acute) Recurrent acute pancreatitis (Acute) Hypertension complicating in third trimester (Acute) High-risk in third trimester (Acute) Diabetes in (Acute) History of pre-eclampsia (Acute) Acute pancreatitis (Resolved) Hypertension affecting in second trimester (Resolved) Supervision of high risk in second trimester (Resolved) Impressions 1. recurrent acute pancreatitis with necrosis of the pancreas - possibly related to control patch she started 3 weeks ago. No ETOH and no hx of cholelithiasis. Normal pancreatic duct on MRCP in July of 2016. 2. DM II 3. HLD 4. morbid obesity 5. hx of migraine cephalgia 6. dehydration 7. 9 weeks post - had pre-eclampsia 8. 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
--- NOTE | 2017-09-20 06:43 | NURSING ---
317 apurva acute pancreatitis
--- NOTE | 2017-09-20 06:49 | HP.PCM_ITS ---
Problem List (1) Depression Status: Chronic Qualifiers: Comment: zoloft (2) Type 2 diabetes mellitus Status: Chronic Qualifiers: (3) Migraine headache Status: Chronic Qualifiers: (4) Hyperlipidemia Status: Chronic (5) Recurrent acute pancreatitis Status: Acute History of Present Illness Date of Admission: 09/20/17 Chief Complaint: abdominal pain associated with nausea and vomiting The patient is a 22 year old F with a past medical history of diabetes mellitus type 2, migraine cephalgia, hyperlipidemia, morbid obesity and pancreatitis in the past, possibly due to fenofibrate who presented to the ED at [facility] on 09/20/17 c /o abdominal pain associated with nausea and vomiting. The N/V just started in the past 24 hours but she has been having abdominal pain for the past week which she has associated with stress over finding out her grandfather is dying......she thought she was having panic attacks. She denies any alcohol use. she is 9 weeks post and 3 weeks ago she was started on an estrogen patch. She was admitted to [facility] in July of 2016 and during that admission had a MRCP that showed a normal pancreatic duct. A IgG subclass 4 was ordered but for some reason it was cancelled by the lab. She denies any fevers or chills. Vital signs at presentation to the emergency room are temperature 97.9, pulse rate 76, blood pressure 146/83, respiratory rate 18 and she is 96-100% saturated on room air. CBC shows a white blood cell count of 13.1 with 81.5% neutrophils. Platelets and hemoglobin are within normal limits. The electrolytes are within normal limits and BUN is 14 with a creatinine of 0.84. Random blood sugar is 160. Lipase was 765. A CT scan of the abdomen and pelvis showed acute interstitial pancreatitis with fluid collection involving mainly the pancreatic head with nonenhancing linear and curvilinear areas within the inflamed pancreatic parenchyma. These areas most likely represent pancreatic necrosis. An incidental finding was a 2.7 cm left ovarian cyst. She is very tender to palpation over the entire abdomen. Past Medical History Past Medical History (Chronic Problems): Chronic Problems (Last Reviewed 07/25/17 @ 14:54 by Sydni Chen) Depression (Chronic) zoloft Type 2 diabetes mellitus (Chronic) Migraine headache (Chronic) Hyperlipidemia (Chronic) Medical History: Medical History (Last Reviewed 07/25/17 @ 14:54 by Sydni Chen) Depression (Chronic) F32.9 zoloft Type 2 diabetes mellitus (Chronic) E11.9 Migraine headache (Chronic) G43.909 Hyperlipidemia (Chronic) E78.5 Acute pancreatitis (Resolved) K85.90 Allergies No Known Allergies Allergy (Verified 09/20/17 03:46) Home Medications: Ambulatory Orders Medication Instructions Recorded Sertraline HCl [Zoloft] 100 mg PO DAILY 07/02/17 Labetalol [Trandate (Beta Jaja)] 100 mg PO BID 07/12/17 Metformin HCl [Glucophage] 500 mg PO BIDCM #60 tab 07/13/17 Surgical History: Surgical History (Last Reviewed 07/25/17 @ 14:54 by Sydni Chen) carpal tunnel Surgical History: no surgical history Psychiatric History: Anxiety, 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: - - recent vaginal delivery 9 weeks ago with pre-eclampsia and PG induced HTN Lives: Spouse/ Significant Other, With Family Smoking Status: Never smoker Tobacco Use: Non-smoker Alcohol: None Drugs: None - *Family History Maternal Family History: Family History (Last Reviewed 09/20/17 @ 06:50 by Debbie Ann DO) Mother Diabetes Grandmother Diabetes Grandfather Diabetes Father hyperlipidemia History Items: Diabetes Paternal Family History: Family History (Last Reviewed 09/20/17 @ 06:50 by Debbie Ann DO) Mother Diabetes Grandmother Diabetes Grandfather Diabetes Father hyperlipidemia History Items: Diabetes Review of Systems Constitutional: Denies: Chills, Fever Eyes: Denies: Vision Change HEENT: Denies: Head Aches, Sinus Congestion, Sinus Drainage Cardiovascular: Denies: Chest Pain, Palpitations Respiratory: Denies: Cough, Shortness of breath at rest, Sputum production Gastrointestinal: Reports: Abdominal Pain - also having pain in the back, Nausea , Vomiting Genitourinary: Denies: Dysuria Gynecological: Denies: Vaginal bleeding, Vaginal discharge Musculoskeletal: Denies: Joint Pain, Joint Tenderness Skin: Denies: Jaundice Neurological: Denies: Numbness, Tingling, Focal weakness Psychiatric: Reports: Anxiety, Depression Hematologic/ Lymphatic: Denies: Hx of blood clot VTE Information - Inpt Only VTE Present on Admission: No VTE Mechan Device Prophylaxis: Knee High JAIMEE Hose VTE Pharm Prophylaxis ordered?: Yes Patient Problems: Active and Suspected Problems (Last Reviewed 07/25/17 @ 14:54 by Sydni Chen) Recurrent acute pancreatitis (Acute) - Physical Exam General: Alert, Oriented x3, Cooperative, - - looks to be in pain and not to feel well HEENT: Atraumatic, PERRLA, EOMI, Normocephalic Oral: Dry Mucosa Neck: Supple, No Nodes, Trachea Midline Lungs: Clear to auscultation, Diminished - in the bases Cardiovascular: Regular rate, Regular Rhythm, Normal S1, Normal S2, No murmurs, No rub noted, No Gallop Abdomen: Soft, Non-Distended, Hypoactive Bowel Sounds, Tender - diffusely but, marked tenderness in the epigastric and LUQ's Extremities: No clubbing, No cyanosis, No edema, No Calf Tenderness, Peripheral Pulses Normal Neurological: Cranial nerves II-XII grossly intact, Neuro grossly intact Psych/Mental Status: Normal Affect, Flat Affect Vital Signs Temp Pulse Resp BP Pulse Ox 97.9 F 78 16 139/74 H 96 09/20/17 03:42 09/20/17 06:03 09/20/17 06:03 09/20/17 06:03 09/20/17 06:03 Oxygen Delivery Method Room Air Weight: 231 lb 0.711 oz Body Mass Index (BMI) 40.9 Finger Stick Blood Glucose 248 Laboratory Tests Past 24 Hrs 09/20/17 09/20/17 09/20/17 03:46 03:46 03:46 WBC 13.1 H RBC 4.68 Hgb 14.0 Hct 37.6 MCV 80.3 L MCH 29.5 MCHC 36.1 H RDW 15.6 H RDW Differential 45.2 H Plt Count 314 MPV 10.7 Immature Gran % (Auto) 0.200 Neut % (Auto) 81.5 H Lymph % (Auto) 6.6 L [place] % (Auto) 10.8 H Eos % (Auto) 0.7 Baso % (Auto) 0.2 Absolute Neuts (auto) 10.7 H Absolute Lymphs (auto) 0.86 Total Counted Not Reportable Sodium 141 Potassium 4.6 Chloride 104 Carbon Dioxide 23.0 Anion Gap 14 BUN 14 Creatinine 0.84 Estim Creat Clear Calc 86.90 Est GFR (MDRD) Af Amer 109 Est GFR (MDRD) Non-Af 90 BUN/Creatinine Ratio 16.7 Glucose 160 H Lactic Acid Calcium 9.1 Total Bilirubin 0.30 AST 18 ALT 22 Alkaline Phosphatase 73 Total Protein 8.3 H Albumin 3.8 Globulin 4.5 H Albumin/Globulin Ratio 0.8 L Lipase 765 H Urine Color Yellow Urine Clarity Clear Urine pH 6.0 Ur Specific [place] 1.020 Urine Protein 100 H Urine Glucose (UA) Normal Urine Ketones Negative Urine Occult Blood 250 H Urine Nitrite Negative Urine Bilirubin Negative Urine Urobilinogen Normal Ur Leukocyte Esterase 25 H Urine RBC 0-5 SEEN Urine WBC 0-5 SEEN Ur Squamous Epith Cells 0-5 SEEN Urine Bacteria 0 SEEN Urine Mucus 0 SEEN Urine Test Negative 09/20/17 04:06 WBC RBC Hgb Hct MCV MCH MCHC RDW RDW Differential Plt Count MPV Immature Gran % (Auto) Neut % (Auto) Lymph % (Auto) [place] % (Auto) Eos % (Auto) Baso % (Auto) Absolute Neuts (auto) Absolute Lymphs (auto) Total Counted Sodium Potassium Chloride Carbon Dioxide Anion Gap BUN Creatinine Estim Creat Clear Calc Est GFR (MDRD) Af Amer Est GFR (MDRD) Non-Af BUN/Creatinine Ratio Glucose Lactic Acid 0.7 Calcium Total Bilirubin AST ALT Alkaline Phosphatase Total Protein Albumin Globulin Albumin/Globulin Ratio Lipase Urine Color Urine Clarity Urine pH Ur Specific [place] Urine Protein Urine Glucose (UA) Urine Ketones Urine Occult Blood Urine Nitrite Urine Bilirubin Urine Urobilinogen Ur Leukocyte Esterase Urine RBC Urine WBC Ur Squamous Epith Cells Urine Bacteria Urine Mucus Urine Test Assessment/Plan All Active Problems (Last Reviewed 07/25/17 @ 14:54 by Sydni Chen) Severe preeclampsia (Acute) Recurrent acute pancreatitis (Acute) Hypertension complicating in third trimester (Acute) High-risk in third trimester (Acute) Diabetes in (Acute) History of pre-eclampsia (Acute) Acute pancreatitis (Resolved) Hypertension affecting in second trimester (Resolved) Supervision of high risk in second trimester (Resolved) Impressions 1. recurrent acute pancreatitis with necrosis of the pancreas - possibly related to control patch she started 3 weeks ago. No ETOH and no hx of cholelithiasis. Normal pancreatic duct on MRCP in July of 2016. 2. DM II 3. HLD 4. morbid obesity 5. hx of migraine cephalgia 6. dehydration 7. 9 weeks post - had pre-eclampsia 8. 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
[2017-09-20] MEDS: 0.9% Normal Saline 1,000 ML 150 ML IV ×3 (07:48→21:39)
--- NOTE | 2017-09-20 08:05 | PCA ---
Addendum entered by Kirt Dubon 09/20/17 11:03: Informed primary RN, Mini that [facility] states no previous admissions or medical records in 2018 for this patient. Original Note: This guidance secretary had pt sign release of medical information per physician order for [facility]. Faxed release to [facility] at [phone] and [phone]. Placed call and spoke to Ada in the medical records department at [phone] to inform her of incoming fax. Ada to process request when received.
[2017-09-20] MEDS: 0.9% NaCl Peripheral Flush Adult/Peds IV ×2 (08:43→22:48)
[2017-09-20] MEDS: proMETHazine 25 MG/ML Syringe IV (08:43)
[2017-09-20 09:02] LABS: Hemoglobin A1c 5.9 % (4.2-6.3)
[2017-09-20 09:36] LABS: Cholesterol 260 mg/dL (200); High Density Lipoprotein 20 mg/dL; Magnesium 1.9 mg/dL (1.6-2.6); Phosphorus 2.7 mg/dL (2.5-4.9); Triglycerides 592 mg/dL
--- NOTE | 2017-09-20 10:22 | PCM.PN.HOSP ---
Patient Problems: Active and Suspected Problems (Last Reviewed 07/25/17 @ 14:54 by Sydni Chen) Recurrent acute pancreatitis (Acute) Subjective: Patient was seen and examined. Admitted this morning with acute recurrent pancreatitis. She had pancreatitis in 2017, transferred to [facility] for pseudocyst management. According to patient, nothing was done there. She comes in with complaints of abdominal pain, nausea and vomiting. She is 10 weeks . Denies any fever or chills or dizziness or shortness of breath. Objective: Physical Exam General: Alert, Oriented x3, Cooperative, in pain, uncomfortable HEENT: Atraumatic, PERRLA, EOMI, Normocephalic Oral: Dry Mucosa Neck: Supple, No Nodes, Trachea Midline Lungs: Clear to auscultation, Diminished - in the bases Cardiovascular: Regular rate, Regular Rhythm, Normal S1, Normal S2, No murmurs, No rub noted, No Gallop Abdomen: Soft, Non-Distended, Hypoactive Bowel Sounds, Tender - diffusely but, marked tenderness in the epigastric and LUQ's Extremities: No clubbing, No cyanosis, No edema, No Calf Tenderness, Peripheral Pulses Normal Neurological: Cranial nerves II-XII grossly intact, Neuro grossly intact Psych/Mental Status: Normal Affect, Flat Affect Vitals/I&O's: Vital Signs Temp Pulse Resp BP Pulse Ox 97.7 F L 66 16 137/80 H 99 09/20/17 07:48 09/20/17 07:48 09/20/17 09:30 09/20/17 09:30 09/20/17 09:30 Oxygen Delivery Method Room Air Weight: 104.916 kg Body Mass Index (BMI) 40.9 Laboratory Results 09/20/17 08:02: Phosphorus 2.7, Magnesium 1.9, Triglycerides 592 H, Cholesterol 260 H, LDL Cholesterol TNP, VLDL Cholesterol TNP, HDL Cholesterol 20 L 09/20/17 08:02: Hemoglobin A1c 5.9 Current Medications Bisacodyl (Dulcolax) 10 mg RECTAL .X1 PRN PRN PRN Reason: See label comments Bisacodyl (Dulcolax) 10 mg PO .X1 PRN PRN PRN Reason: See label comments Diphenhydramine HCl (Benadryl) 12.5 - 25 mg IV Q6H PRN PRN PRN Reason: ITCHING Diphenhydramine HCl (Benadryl) 12.5 - 25 mg PO Q6H PRN PRN PRN Reason: Pruritis Enoxaparin Sodium (Lovenox) 40 mg SC DAILY@1000 BORIS Last Admin: 09/20/17 10:03 Dose: Not Given Sodium Chloride () 1,000 mls @ 150 mls/hr IV .Q6H40M [facility] Last Admin: 09/20/17 07:48 Dose: 150 mls/hr Naloxone HCl 4 mg/ Dextrose 504 mls @ 0 mls/hr IV .Q0M PRN; Protocol; Titrate PRN Reason: To maintain Resp. rate >10 Famotidine 20 mg/ Sodium (Chloride) 10 mls @ 300 mls/hr IV Q12 [facility] Last Admin: 09/20/17 08:38 Dose: 300 mls/hr Piperacillin Sod/Tazobactam Sod (Zosyn) 3.375 gm in 50 mls @ 12.5 mls/hr IV Q8 [facility] Insulin Human Lispro (Humalog Kwikpen (Bkc)) 0 unit SC Q6 [facility] PRN Reason: Protocol Labetalol HCl (Trandate) 100 mg PO BID [facility] Last Admin: 09/20/17 10:03 Dose: Not Given Magnesium Hydroxide (Milk Of Magnesia) 30 ml PO DAILY PRN PRN PRN Reason: Constipation Morphine Sulfate () 100 mg IV UD [facility] PRN Reason: Protocol Last Admin: 09/20/17 08:26 Dose: 100 mg Naloxone HCl (Narcan) 0.02 mg IV Q1M PRN PRN Reason: RR <10 and pt unresponsive Ondansetron HCl (Zofran) 4 mg IV Q6H PRN PRN PRN Reason: Nausea Only Last Admin: 09/20/17 07:45 Dose: 4 mg Promethazine HCl (Phenergan) 6.25 - 12.5 mg IV Q6H PRN PRN PRN Reason: NAUSEA/VOMITING Last Admin: 09/20/17 08:43 Dose: 12.5 mg Senna/Docusate Sodium (Senokot-S, Dunia-Colace) 2 tablet PO QHS [facility] Sertraline HCl (Zoloft) 100 mg PO DAILY [facility] Last Admin: 09/20/17 10:04 Dose: Not Given Sodium Chloride () 5 - 30 ml IV UD PRN PRN Reason: SALINE FLUSH Last Admin: 09/20/17 08:43 Dose: 10 ml Medical Necessity - Tobacco Use Smoking Status: Never smoker Tobacco Use: Non-smoker Assessment/Plan All Active Problems (Last Reviewed 07/25/17 @ 14:54 by Sydni Chen) Severe preeclampsia (Acute) Recurrent acute pancreatitis (Acute) Hypertension complicating in third trimester (Acute) High-risk in third trimester (Acute) Diabetes in (Acute) History of pre-eclampsia (Acute) Acute pancreatitis (Resolved) Hypertension affecting in second trimester (Resolved) Supervision of high risk in second trimester (Resolved) 22-year-old female with past medical history of type II DM, hypertension, who is 10 weeks , history of pancreatitis of unclear etiology in 2017, comes in with complaints of abdominal pain, nausea and vomiting and found to have acute pancreatitis with possible necrosis of the pancreas. 1. Acute pancreatitis complicated with possible necrosis, unclear etiology, concern for control patch being the inciting agent. 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 Patient may need to be transferred out to a tertiary facility 2. Type II DM, on metformin - metformin on hold, continue IV antibiotics, HbA1c is pending, continue with insulin sliding scale with Accu-Cheks 3. Hypertension, controlled, on labetalol, will continue to monitor vitals. 4. Anxiety/depression on Zoloft 5. Morbid obesity 6. Status post 10 weeks 7. Code Visit Inpatient E&M: 63636 Subs Hosp L3
[2017-09-20 11:40] LABS: Bedside Glucose 156 mg/dL (70-110)
--- NOTE | 2017-09-20 11:50 | PCM.CONS.GEN ---
Problem List (1) Recurrent acute pancreatitis Status: Acute Reason for Consult Date of Consultation: 09/20/17 Reason for Consultation: Recurrent pancreatitis History of Present Illness: The patient is a 22 year old F who was seen by me one year ago for pancreatitis of unknown origin. She was transferred to [facility] to see a stretcher leveler operator for possible drainage of pseudocyst. She has recurrent pancreatitis at this time. She reports that yesterday evening she began having epigastric pain that became diffuse. She is having nausea and vomiting. The pain is intractable and she is requiring a morphine drip. Past Medical History Past Medical History (Chronic Problems): Chronic Problems (Last Reviewed 07/25/17 @ 14:54 by Sydni Chen) Depression (Chronic) zoloft Type 2 diabetes mellitus (Chronic) Migraine headache (Chronic) Hyperlipidemia (Chronic) Medical History: Medical History (Last Reviewed 07/25/17 @ 14:54 by Sydni Chen) Depression (Chronic) F32.9 zoloft Type 2 diabetes mellitus (Chronic) E11.9 Migraine headache (Chronic) G43.909 Hyperlipidemia (Chronic) E78.5 Acute pancreatitis (Resolved) K85.90 Allergies No Known Allergies Allergy (Verified 09/20/17 03:46) Home Medications: Ambulatory Orders Medication Instructions Recorded Sertraline HCl [Zoloft] 100 mg PO QHS 07/02/17 Labetalol [Trandate (Beta Jaja)] 100 mg PO BID 07/12/17 Metformin HCl [Glucophage] 500 mg PO BIDCM #60 tab 07/13/17 Surgical History: Surgical History (Last Reviewed 07/25/17 @ 14:54 by Sydni Chen) carpal tunnel Surgical History: no surgical history Psychiatric History: Anxiety, Depression 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: - - recent vaginal delivery 9 weeks ago with pre-eclampsia and PG induced HTN Lives: Spouse/ Significant Other, With Family Smoking Status: Never smoker Tobacco Use: Non-smoker Alcohol: None Drugs: None - *Family History Maternal Family History: Family History (Last Reviewed 09/20/17 @ 06:50 by Debbie Ann DO) Mother Diabetes Grandmother Diabetes Grandfather Diabetes Father hyperlipidemia History Items: Diabetes Paternal Family History: Family History (Last Reviewed 09/20/17 @ 06:50 by Debbie Ann DO) Mother Diabetes Grandmother Diabetes Grandfather Diabetes Father hyperlipidemia History Items: Diabetes Review of Systems Constitutional: Reports: Anorexia. Denies: Fever HEENT: Denies: Difficulty Swallowing Cardiovascular: Denies: Chest Pain Respiratory: Reports: Shortness of Breath Gastrointestinal: Reports: Abdominal Pain, Nausea, Vomiting. Denies: Hematochezia Genitourinary: Denies: Dysuria Musculoskeletal: Denies: Joint Tenderness Skin: Denies: Jaundice Hematologic/ Lymphatic: Denies: Anemia Patient Problems: Active and Suspected Problems (Last Reviewed 07/25/17 @ 14:54 by Sydni Chen) Recurrent acute pancreatitis (Acute) - Physical Exam General: Alert, Oriented x3, Cooperative HEENT: Atraumatic Neck: No JVD Lungs: Normal air movement Cardiovascular: Regular rate, Regular Rhythm Abdomen: Soft, Non-Distended, Tender - Tender diffusely but worse in the epigastric region. Skin: No rashes Musculoskeletal: No Tenderness to Palpation of Joints or Extremities Neurological: Cranial nerves II-XII grossly intact Psych/Mental Status: Normal Affect Vital Signs Temp Pulse Resp BP Pulse Ox 98.1 F 79 22 H 124/84 H 100 09/20/17 11:29 09/20/17 11:29 09/20/17 11:29 09/20/17 11:29 09/20/17 11:29 Oxygen Delivery Method Room Air Weight: 231 lb 4.8 oz Body Mass Index (BMI) 40.9 Laboratory Tests Past 24 Hrs 09/20/17 09/20/17 08:02 08:02 Hemoglobin A1c 5.9 Phosphorus 2.7 Magnesium 1.9 Triglycerides 592 H Cholesterol 260 H LDL Cholesterol TNP VLDL Cholesterol TNP HDL Cholesterol 20 L POC Glucose 09/20/17 11:34 POC Glucose 156 H Clinical Impression(s) from Imaging Studies Abdomen/Pelvis CT 09/20/17 04:01 Assessment/Plan All Active Problems (Last Reviewed 07/25/17 @ 14:54 by Sydni Chen) Severe preeclampsia (Acute) Recurrent acute pancreatitis (Acute) Hypertension complicating in third trimester (Acute) High-risk in third trimester (Acute) Diabetes in (Acute) History of pre-eclampsia (Acute) Acute pancreatitis (Resolved) Hypertension affecting in second trimester (Resolved) Supervision of high risk in second trimester (Resolved) 22-year-old female with 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 The patient does have elevated lipase and a CT scan reveals edema in the pancreas with streaks of noncontrast material in the head of the pancreas suggestive of necrosis. The patient's vitals are currently stable with no signs of sepsis. Her pain is intractable and she is requiring a RESERVOIR CARETAKER pump. Ultrasound a year ago showed no gallstones and LFTs are normal during this visit. 2. If there is concern for gallstones a repeat ultrasound can be performed but this is likely the same etiology as the last pancreatitis which was never discovered. This may be drug-induced. As there were no gallstones then and likely not now there is no role for surgery from my standpoint. If the patient's condition deteriorates a repeat scan would be warranted and if there are any air bubbles or signs of necrotic pancreatitis then she would need transferred to tertiary care center for necrosectomy. Durga Savage MD Pager: [facility] [address] [place] [address], [address] [place] [address] Office:
--- NOTE | 2017-09-20 11:53 | CON.PCM_ITS ---
Problem List (1) Recurrent acute pancreatitis Status: Acute Reason for Consult Date of Consultation: 09/20/17 Reason for Consultation: Recurrent pancreatitis History of Present Illness: The patient is a 22 year old F who was seen by me one year ago for pancreatitis of unknown origin. She was transferred to [facility] to see a take away attendant for possible drainage of pseudocyst. She has recurrent pancreatitis at this time. She reports that yesterday evening she began having epigastric pain that became diffuse. She is having nausea and vomiting. The pain is intractable and she is requiring a morphine drip. Past Medical History Past Medical History (Chronic Problems): Chronic Problems (Last Reviewed 07/25/17 @ 14:54 by Sydni Chen) Depression (Chronic) zoloft Type 2 diabetes mellitus (Chronic) Migraine headache (Chronic) Hyperlipidemia (Chronic) Medical History: Medical History (Last Reviewed 07/25/17 @ 14:54 by Sydni Chen) Depression (Chronic) F32.9 zoloft Type 2 diabetes mellitus (Chronic) E11.9 Migraine headache (Chronic) G43.909 Hyperlipidemia (Chronic) E78.5 Acute pancreatitis (Resolved) K85.90 Allergies No Known Allergies Allergy (Verified 09/20/17 03:46) Home Medications: Ambulatory Orders Medication Instructions Recorded Sertraline HCl [Zoloft] 100 mg PO QHS 07/02/17 Labetalol [Trandate (Beta Jaja)] 100 mg PO BID 07/12/17 Metformin HCl [Glucophage] 500 mg PO BIDCM #60 tab 07/13/17 Surgical History: Surgical History (Last Reviewed 07/25/17 @ 14:54 by Sydni Chen) carpal tunnel Surgical History: no surgical history Psychiatric History: Anxiety, Depression 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: - - recent vaginal delivery 9 weeks ago with pre-eclampsia and PG induced HTN Lives: Spouse/ Significant Other, With Family Smoking Status: Never smoker Tobacco Use: Non-smoker Alcohol: None Drugs: None - *Family History Maternal Family History: Family History (Last Reviewed 09/20/17 @ 06:50 by Debbie Ann DO) Mother Diabetes Grandmother Diabetes Grandfather Diabetes Father hyperlipidemia History Items: Diabetes Paternal Family History: Family History (Last Reviewed 09/20/17 @ 06:50 by Debbie Ann DO) Mother Diabetes Grandmother Diabetes Grandfather Diabetes Father hyperlipidemia History Items: Diabetes Review of Systems Constitutional: Reports: Anorexia. Denies: Fever HEENT: Denies: Difficulty Swallowing Cardiovascular: Denies: Chest Pain Respiratory: Reports: Shortness of Breath Gastrointestinal: Reports: Abdominal Pain, Nausea, Vomiting. Denies: Hematochezia Genitourinary: Denies: Dysuria Musculoskeletal: Denies: Joint Tenderness Skin: Denies: Jaundice Hematologic/ Lymphatic: Denies: Anemia Patient Problems: Active and Suspected Problems (Last Reviewed 07/25/17 @ 14:54 by Sydni Chen) Recurrent acute pancreatitis (Acute) - Physical Exam General: Alert, Oriented x3, Cooperative HEENT: Atraumatic Neck: No JVD Lungs: Normal air movement Cardiovascular: Regular rate, Regular Rhythm Abdomen: Soft, Non-Distended, Tender - Tender diffusely but worse in the epigastric region. Skin: No rashes Musculoskeletal: No Tenderness to Palpation of Joints or Extremities Neurological: Cranial nerves II-XII grossly intact Psych/Mental Status: Normal Affect Vital Signs Temp Pulse Resp BP Pulse Ox 98.1 F 79 22 H 124/84 H 100 09/20/17 11:29 09/20/17 11:29 09/20/17 11:29 09/20/17 11:29 09/20/17 11:29 Oxygen Delivery Method Room Air Weight: 231 lb 4.8 oz Body Mass Index (BMI) 40.9 Laboratory Tests Past 24 Hrs 09/20/17 09/20/17 08:02 08:02 Hemoglobin A1c 5.9 Phosphorus 2.7 Magnesium 1.9 Triglycerides 592 H Cholesterol 260 H LDL Cholesterol TNP VLDL Cholesterol TNP HDL Cholesterol 20 L POC Glucose 09/20/17 11:34 POC Glucose 156 H Clinical Impression(s) from Imaging Studies Abdomen/Pelvis CT 09/20/17 04:01 Assessment/Plan All Active Problems (Last Reviewed 07/25/17 @ 14:54 by Sydni Chen) Severe preeclampsia (Acute) Recurrent acute pancreatitis (Acute) Hypertension complicating in third trimester (Acute) High-risk in third trimester (Acute) Diabetes in (Acute) History of pre-eclampsia (Acute) Acute pancreatitis (Resolved) Hypertension affecting in second trimester (Resolved) Supervision of high risk in second trimester (Resolved) 22-year-old female with 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 The patient does have elevated lipase and a CT scan reveals edema in the pancreas with streaks of noncontrast material in the head of the pancreas suggestive of necrosis. The patient's vitals are currently stable with no signs of sepsis. Her pain is intractable and she is requiring a AQUATICS SPECIALIST pump. Ultrasound a year ago showed no gallstones and LFTs are normal during this visit. 2. If there is concern for gallstones a repeat ultrasound can be performed but this is likely the same etiology as the last pancreatitis which was never discovered. This may be drug-induced. As there were no gallstones then and likely not now there is no role for surgery from my standpoint. If the patient' s condition deteriorates a repeat scan would be warranted and if there are any air bubbles or signs of necrotic pancreatitis then she would need transferred to tertiary care center for necrosectomy. Durga Savage MD Pager: [facility] [address] [place] [address], [address] [place] [address] Office:
[2017-09-20] MEDS: HYDROmorphone 1 MG/ML Syringe IV ×6 (12:38→22:46)
--- NOTE | 2017-09-20 14:19 | CASEMGMT ---
Tertiary Hospitals that are in-network with patient's [facility] Community Plan: [facility], [facility], [facility], [facility], [facility], [facility], [facility].
[2017-09-20] MEDS: Piperacil/Tazobactam 3.375 GM/50 ML ML IV ×2 (14:47→22:47)
[2017-09-20 16:51] LABS: Bedside Glucose 138 mg/dL (70-110)
--- NOTE | 2017-09-20 21:45 | NURSING ---
Pt yelling out help me because in so much pain. This RN and blood tester fowl came into room. Pt states she felt like she couldn't get a deep breath because she hurt so bad. 2L NC applied for comfort, ice chips given, heating pad on. Made pt aware she had a little while longer until her pain med was due because not due again until 2234. Pt began to calm down, continuing to monitor.
[2017-09-20] MEDS: Senna/Docusate Sodium 1 Tablet 2 TABLET PO (22:46)
[2017-09-20] MEDS: Labetalol 100 MG Tablet PO (22:47)
[2017-09-21] VITALS (26 sets, daily range): BP systolic 78–174; BP diastolic 46–113; PULSE 95–109; RESP 15–22; TEMP 36.3–38.2; O2SAT 94–99
[2017-09-21] MEDS: Insulin Lispro 100 UNIT/ML INSULN.PEN SC (01:18)
[2017-09-21] MEDS: HYDROmorphone 1 MG/ML Syringe IV ×2 (01:18→04:40)
[2017-09-21] MEDS: 0.9% NaCl Peripheral Flush Adult/Peds IV ×3 (01:24→20:32)
[2017-09-21 01:36] LABS: Bedside Glucose 160 mg/dL (70-110)
[2017-09-21] MEDS: 0.9% Normal Saline 1,000 ML 150 ML IV (04:29)
--- NOTE | 2017-09-21 04:49 | NURSING ---
Called Dr. Ann to update her on pt condition. currently at pt's bedside.
[2017-09-21 04:51] LABS: Bedside Glucose 139 mg/dL (70-110)
--- NOTE | 2017-09-21 04:58 | CT_ITS ---
STUDY: CT ABDOMEN WITHOUT CONTRAST REASON FOR EXAM: Female, 22 years old. History of pancreatitis. RADIATION DOSAGE (If Supplied By Facility): CTDIvol = ( 24.00 ) mGy, DLP = ( 995.21 ) mGycm TECHNIQUE: Transaxial images were obtained without intravenous contrast, and oral contrast. Sagittal and coronal images were reconstructed. Individualized dose optimization techniques were used for this CT. COMPARISON: Comparison is made with prior study dated September 20, 2017. FINDINGS: Increased markings with areas of confluence in the lower lobes suggestive bibasilar atelectasis and/or infiltrates. The visualized portions of the heart are within normal limits. There is decreased attenuation of the liver consistent with steatosis. Increased densities within the gallbladder most likely representing vicarious excretion of the prior intravenous contrast administration. Normal spleen. There is diffuse enlargement of the pancreas with jose m-pancreatic edema suggesting acute pancreatitis. There is evidence of a peripancreatic inflammatory changes. This has progressed as compared to prior study. Inflammatory changes also seen within the root of the mesentery as well as in the right perinephric region. Normal bilateral adrenal glands. Normal right kidney. Normal left kidney. There is a small hiatal hernia. Normal small intestine. Normal colon. The appendix is visualized and appears normal. Normal abdominal aorta. Normal inferior vena cava. Normal retroperitoneum. Normal abdominal wall. Normal osseous structures. CT/Abdomen WITH IV Contrast IMPRESSION: Acute pancreatitis with diffuse peripancreatic and perinephric infiltration in keeping with progression of the acute pancreatitis. Increased density seen within the gallbladder lumen. Bibasilar atelectasis and/or infiltrate. Electronically Signed: Popeye Nichols MD at 9:01 EDT Tel [phone], Service support ,
--- NOTE | 2017-09-21 05:04 | PCM.PN.BLA ---
Progress Note Night hospitalist: Called to see pt c/o of severe abdominal pain despite 1 mg IV of Dilaudid. she was on a MS HOME FURNISHINGS SALES REPRESENTATIVE earlier today but it was not controlling her pain and she was transitioned to Dilaudid. She has nausea. She was admitted to the hospital last night with recurrent severe pancreatitis with necrosis in the head of the pancreas on CT scan. She is also c/o numbness in her face, hands and feet. Current vital signs are temp 97.4, pulse rate 108, blood pressure 103/58, respiratory rate 20 and she is 95-97% saturated on room air. alert, appears to be in severe pain......worse than last night when I admitted her. Any movement of the bed makes the pain worse. Her face is flushed but, she is cool to the touch. no rashes MM are dry able to follow commands and answer questions Lungs - diminished, poor inspiratory effort Heart - Regular with increased resting HR Abd - hypoactive BS's, she has pain with palpation throughout the abdomen and she guards with palpation, she has + rebound, the abd is soft, no masses I reviewed Dr. Savage's consult Impressions. 1. severe pancreatitis with necrosis in the pancreatic head with increasing pain despite IV Dilaudid. Stat Lactic acid BMP and CBC. If the Creat is WNL will proceed with a CT scan of the abdomen and pelvis with IV contrast only Continue Zosyn Change the pain meds to a dilaudid HOME FURNISHINGS SALES REPRESENTATIVE Nothing but sips and chips by mouth May need to transfer to a tertiary facility if the CT is worse or the lactic acid is increased. condition is guarded Will review the lab and the CT scan when available
--- NOTE | 2017-09-21 05:16 | PN_ITS ---
Progress Note Night hospitalist: Called to see pt c/o of severe abdominal pain despite 1 mg IV of Dilaudid. she was on a MS VISITOR SERVICES INFORMATION ASSISTANT earlier today but it was not controlling her pain and she was transitioned to Dilaudid. She has nausea. She was admitted to the hospital last night with recurrent severe pancreatitis with necrosis in the head of the pancreas on CT scan. She is also c/o numbness in her face, hands and feet. Current vital signs are temp 97.4, pulse rate 108, blood pressure 103/58, respiratory rate 20 and she is 95-97% saturated on room air. alert, appears to be in severe pain......worse than last night when I admitted her. Any movement of the bed makes the pain worse. Her face is flushed but, she is cool to the touch. no rashes MM are dry able to follow commands and answer questions Lungs - diminished, poor inspiratory effort Heart - Regular with increased resting HR Abd - hypoactive BS's, she has pain with palpation throughout the abdomen and she guards with palpation, she has + rebound, the abd is soft, no masses I reviewed Dr. Savage's consult Impressions. 1. severe pancreatitis with necrosis in the pancreatic head with increasing pain despite IV Dilaudid. Stat Lactic acid BMP and CBC. If the Creat is WNL will proceed with a CT scan of the abdomen and pelvis with IV contrast only Continue Zosyn Change the pain meds to a dilaudid VISITOR SERVICES INFORMATION ASSISTANT Nothing but sips and chips by mouth May need to transfer to a tertiary facility if the CT is worse or the lactic acid is increased. condition is guarded Will review the lab and the CT scan when available
[2017-09-21 05:22] LABS: Absolute Lymphocyte Count 0.86 X10^3/ul (0.83-4.51); Absolute Neutrophil Count 6.1 X10^3/uL (2.0-7.7); Basophil# 0.01 X10^3/uL; Basophil% 0.1 % (0-1); Eosinophil# 0.03 X10^3/uL; Eosinophils% 0.4 % (0-5); Hematocrit 43.6 % (37-47); Hemoglobin 14.3 g/dl (12.0-15.0); Lymphocyte # 0.86 X10^3/ul (4.0); Lymphocyte % 11.8 % (19-41); Mean Corp Hgb Conc 32.8 g/gl (32-36); Mean Corpuscular Hgb 26.7 pg (27.0-32.0); Mean Corpuscular Volume 81.5 fL (81-99); Mean Platelet Vol. 10.9 fl (6.2-12.0); Monocyte# 0.32 X10^3/uL; Monocyte% 4.4 % (0-10); Neutrophil # 6.05 X10^3/uL (2.7-7.7); Neutrophil % 83.2 % (47-70); Platelet Count 329 K/mm3 (150-450); RBC Distribution Width CV 17.5 % (11.6-14.6); RBC Distribution Width SD 50.9 fl (35.1-43.9); Red Blood Count 5.35 M/mm3 (4.2-5.4); White Blood Count 7.3 K/mm3 (4.4-11.0)
[2017-09-21 05:24] LABS: POSITIVE COUNT NO; POSITIVE DIFFERENTIAL NO; POSITIVE MORPHOLOGY NO
[2017-09-21 06:21] LABS: Lactic Acid 1.1 mmol/L (0.4-2.0)
[2017-09-21 06:33] LABS: Erythrocyte Sedimentation Rate 43 mm/hr (0-20)
[2017-09-21 06:36] LABS: Bedside Glucose 132 mg/dL (70-110)
[2017-09-21 07:38] LABS: Anion Gap 14 (5-15)
[2017-09-21 07:39] LABS: Albumin, Serum 2.2 g/dL (3.2-5.0); Globulin 4.8 g/dL (2.2-4.2)
[2017-09-21 07:40] LABS: Alkaline Phosphatase 47 U/L (45-117); Bilirubin, Direct < 0.05 mg/dL (0.00-0.30)
[2017-09-21] MEDS: HYDROmorphone PCA 0.2 MG/ML 100 ML BAG 20 MG IV (08:53)
[2017-09-21] MEDS: 0.9% Normal Saline 1,000 ML 999 ML IV ×5 (08:56→18:16)
[2017-09-21] MEDS: Labetalol 100 MG Tablet PO (09:36)
[2017-09-21] MEDS: Fenofibrate 145 MG Tablet PO (09:36)
[2017-09-21] MEDS: Sertraline 100 MG Tablet PO (09:36)
[2017-09-21] MEDS: Enoxaparin 40 MG/0.4 ML Syringe SC (09:38)
[2017-09-21] MEDS: Lactated Ringers 1,000 ML 200 ML IV ×2 (10:00→17:14)
--- NOTE | 2017-09-21 10:09 | PCM.PROGNOTE ---
Patient Problems: Active and Suspected Problems (Last Reviewed 07/25/17 @ 14:54 by Sydni Chen) Recurrent acute pancreatitis (Acute) Subjective: Patient seen and examined today, she still having significant abdominal tenderness, patient is currently on a pain pump. I talked briefly with general surgery about her care, there is no surgical intervention indicated. There does not seem to be an infection with her pancreatic necrosis, surgery recommended treating her aggressively with IV fluids and monitoring her electrolytes. Patient's lipase increased today. Patient's creatinine increased from 0.84 on admission to 2.42 today. BMP will be monitored closely, patient is currently on 200 cc an hour of IV fluid. Patient is afebrile, I have decided to stop her Zosyn because there is no indication of infection at this time, general surgery agrees. - Physical Exam General: Alert, Oriented x3, Cooperative, Well developed, Well nourished HEENT: Atraumatic, PERRLA, EOMI, Normocephalic Oral: No Gingival or Mucosal Lesions/ Ulcerations Neck: Supple, No JVD, No Nuchal Rigidity, Trachea Midline, Thyroid Normal Size and Texture Lungs: Clear to auscultation, Normal air movement, No rhonchi, No wheeze, No rales Cardiovascular: Regular rate, Regular Rhythm, Normal S1, Normal S2, No murmurs, No Ectopic Activity, PMI Normal, No rub noted, No Gallop Abdomen: Bowel Sounds Present, Soft, Non Tender, Non-Distended, No hernias noted Extremities: No clubbing, No cyanosis, No edema, Capillary Refill Less than 3 Seconds Skin: No rashes, No breakdown Neurological: Cranial nerves II-XII grossly intact, Neuro grossly intact, Muscle tone normal, Sensory exam intact to light touch and pain, Coordination normal Psych/Mental Status: Normal Affect, Appropriate, Alert and oriented to time, place, person, mood and affect Vital Signs Temp Pulse Resp BP Pulse Ox 97.9 F 101 H 16 174/113 H 97 09/21/17 09:00 09/21/17 09:20 09/21/17 09:20 09/21/17 09:00 09/21/17 09:00 Oxygen Flow Rate (L/min) 3 Oxygen Delivery Method Nasal Cannula Weight: 104.916 kg Body Mass Index (BMI) 40.9 Intake and Output for Last 24 Hours 09/19/17 09/20/17 09/21/17 23:59 23:59 23:59 Intake Total 1513 / 1513 1960.6 / 1960.6 Output Total 400 / 400 300 / 300 Balance 1113 / 1113 1660.6 / 1660.6 Laboratory Tests Past 24 Hrs 09/21/17 09/21/17 09/21/17 05:07 05:07 05:07 WBC 7.3 RBC 5.35 Hgb 14.3 Hct 43.6 MCV 81.5 MCH 26.7 L MCHC 32.8 RDW 17.5 H RDW Differential 50.9 H Plt Count 329 MPV 10.9 Immature Gran % (Auto) 0.100 Neut % (Auto) 83.2 H Lymph % (Auto) 11.8 L Dauphin % (Auto) 4.4 Eos % (Auto) 0.4 Baso % (Auto) 0.1 Absolute Neuts (auto) 6.1 Absolute Lymphs (auto) 0.86 Total Counted Not Reportable ESR Sodium Cancelled Potassium Cancelled Chloride Cancelled Carbon Dioxide Cancelled Anion Gap Cancelled BUN Cancelled Creatinine Cancelled Estim Creat Clear Calc Cancelled Est GFR (MDRD) Af Amer Cancelled Est GFR (MDRD) Non-Af Cancelled BUN/Creatinine Ratio Cancelled Glucose Cancelled Lactic Acid 1.1 Calcium Cancelled Phosphorus Cancelled Magnesium Cancelled Total Bilirubin Direct Bilirubin AST ALT Alkaline Phosphatase C-React Prot Ext Range Total Protein Albumin Cancelled Globulin Lipase Cancelled 09/21/17 09/21/17 09/21/17 05:07 05:45 05:45 WBC RBC Hgb Hct MCV MCH MCHC RDW RDW Differential Plt Count MPV Immature Gran % (Auto) Neut % (Auto) Lymph % (Auto) Dauphin % (Auto) Eos % (Auto) Baso % (Auto) Absolute Neuts (auto) Absolute Lymphs (auto) Total Counted ESR 43 H Sodium 136 Potassium TNP Chloride 106 Carbon Dioxide 16.0 L Anion Gap 14 BUN 17 Creatinine 2.42 H Estim Creat Clear Calc 30.16 Est GFR (MDRD) Af Amer 33 L Est GFR (MDRD) Non-Af 27 L BUN/Creatinine Ratio 7.0 L Glucose 143 H Lactic Acid Calcium Pending Phosphorus 3.4 Magnesium 1.7 Total Bilirubin 0.90 Direct Bilirubin < 0.05 AST TNP ALT TNP Alkaline Phosphatase 47 C-React Prot Ext Range Pending Total Protein 7.0 Albumin 2.2 L 2.2 L Globulin 4.8 H Lipase 4945 H POC Glucose 09/21/17 09/21/17 09/21/17 06:26 04:21 01:08 POC Glucose 132 H 139 H 160 H 09/20/17 09/20/17 16:32 11:34 POC Glucose 138 H 156 H Medical Necessity - Tobacco Use Smoking Status: Never smoker Tobacco Use: Non-smoker Assessment/Plan All Active Problems (Last Reviewed 07/25/17 @ 14:54 by Sydni Chen) Severe preeclampsia (Acute) Recurrent acute pancreatitis (Acute) Hypertension complicating in third trimester (Acute) High-risk in third trimester (Acute) Diabetes in (Acute) History of pre-eclampsia (Acute) Acute pancreatitis (Resolved) Hypertension affecting in second trimester (Resolved) Supervision of high risk in second trimester (Resolved) #1 recurrent pancreatitis with pancreatic necrosis-we will continue aggressive IV administration and pain medication, monitor labs closely #2 acute kidney injury-monitor labs closely, continue IV fluid administration #3 hypertension #4 depression Code Visit Inpatient E&M: 36031 Subs Hosp L2
--- NOTE | 2017-09-21 10:17 | CASEMGMT ---
CASE MANAGEMETN CHART REVIEW: HPI: Pt. presents with abdominal pain, N/V. CT demonstrated likely pancreatic necrosis. PMH: Pt. is nine weeks . She had a vaginal delivery on 07/14/17. She has a history of DM2, migraine cephalgia, morbid obesity, hyperlipidemia, pancreatitis, anxiety/depression. Patient lives, with family, in [place]. She sees Dr. Bryant Cardona for primary care. OB was Britany Urena. She denies having advance directives and declined information. Patient denies any functional declines. No DME needs identified. Disposition Plan: Home, with family. No needs identified at this time. CM has listed [facility] in-network tertiary care facilities in previous note. See list if considering transfer.
[2017-09-21 12:26] LABS: Bedside Glucose 145 mg/dL (70-110)
--- NOTE | 2017-09-21 13:48 | PCM.PN.SRG ---
Patient Problems: Active and Suspected Problems (Last Reviewed 07/25/17 @ 14:54 by Sydni Chne) Recurrent acute pancreatitis (Acute) Subjective: Patient was a severe amount of pain overnight. 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 - Physical Exam General: Alert HEENT: Atraumatic, PERRLA Neck: No JVD Lungs: Normal air movement Cardiovascular: Tachycardic Abdomen: Soft, Tender - Diffuse tenderness worse in the epigastric region. Neurological: Cranial nerves II-XII grossly intact Psych/Mental Status: Normal Affect Vital Signs Temp Pulse Resp BP Pulse Ox 98.4 F 98 16 78/46 L 96 09/21/17 13:00 09/21/17 13:00 09/21/17 13:00 09/21/17 13:00 09/21/17 13:00 Oxygen Flow Rate (L/min) 3 Oxygen Delivery Method Nasal Cannula Weight: 231 lb 4.803 oz Body Mass Index (BMI) 40.9 Intake and Output for Last 24 Hours 09/19/17 09/20/17 09/21/17 23:59 23:59 23:59 Intake Total 1513 / 1513 1960.6 / 1960.6 Output Total 400 / 400 300 / 300 Balance 1113 / 1113 1660.6 / 1660.6 Laboratory Tests Past 24 Hrs 09/21/17 09/21/17 09/21/17 05:07 05:07 05:07 WBC 7.3 RBC 5.35 Hgb 14.3 Hct 43.6 MCV 81.5 MCH 26.7 L MCHC 32.8 RDW 17.5 H RDW Differential 50.9 H Plt Count 329 MPV 10.9 Immature Gran % (Auto) 0.100 Neut % (Auto) 83.2 H Lymph % (Auto) 11.8 L Cloud % (Auto) 4.4 Eos % (Auto) 0.4 Baso % (Auto) 0.1 Absolute Neuts (auto) 6.1 Absolute Lymphs (auto) 0.86 Total Counted Not Reportable ESR Sodium Cancelled Potassium Cancelled Chloride Cancelled Carbon Dioxide Cancelled Anion Gap Cancelled BUN Cancelled Creatinine Cancelled Estim Creat Clear Calc Cancelled Est GFR (MDRD) Af Amer Cancelled Est GFR (MDRD) Non-Af Cancelled BUN/Creatinine Ratio Cancelled Glucose Cancelled Lactic Acid 1.1 Calcium Cancelled Phosphorus Cancelled Magnesium Cancelled Total Bilirubin Direct Bilirubin AST ALT Alkaline Phosphatase C-React Prot Ext Range Total Protein Albumin Cancelled Globulin Lipase Cancelled 09/21/17 09/21/17 09/21/17 05:07 05:45 05:45 WBC RBC Hgb Hct MCV MCH MCHC RDW RDW Differential Plt Count MPV Immature Gran % (Auto) Neut % (Auto) Lymph % (Auto) Cloud % (Auto) Eos % (Auto) Baso % (Auto) Absolute Neuts (auto) Absolute Lymphs (auto) Total Counted ESR 43 H Sodium 136 Potassium TNP Chloride 106 Carbon Dioxide 16.0 L Anion Gap 14 BUN 17 Creatinine 2.42 H Estim Creat Clear Calc 30.16 Est GFR (MDRD) Af Amer 33 L Est GFR (MDRD) Non-Af 27 L BUN/Creatinine Ratio 7.0 L Glucose 143 H Lactic Acid Calcium Pending Phosphorus 3.4 Magnesium 1.7 Total Bilirubin 0.90 Direct Bilirubin < 0.05 AST TNP ALT TNP Alkaline Phosphatase 47 C-React Prot Ext Range Pending Total Protein 7.0 Albumin 2.2 L 2.2 L Globulin 4.8 H Lipase 4945 H POC Glucose 09/21/17 09/21/17 09/21/17 12:18 06:26 04:21 POC Glucose 145 H 132 H 139 H 09/21/17 09/20/17 01:08 16:32 POC Glucose 160 H 138 H Clinical Impression(s) from Imaging Studies Abdomen CT 09/21/17 04:58 IMPRESSION: Acute pancreatitis with diffuse peripancreatic and perinephric infiltration in keeping with progression of the acute pancreatitis. Increased density seen within the gallbladder lumen. Bibasilar atelectasis and/or infiltrate. Electronically Signed: Popeye Nichols MD at 9:01 EDT Tel [phone], Service support , Medical Necessity - Tobacco Use Smoking Status: Never smoker Tobacco Use: Non-smoker Assessment/Plan All Active Problems (Last Reviewed 07/25/17 @ 14:54 by Sydni Chen) Severe preeclampsia (Acute) Recurrent acute pancreatitis (Acute) Hypertension complicating in third trimester (Acute) High-risk in third trimester (Acute) Diabetes in (Acute) History of pre-eclampsia (Acute) Acute pancreatitis (Resolved) Hypertension affecting in second trimester (Resolved) Supervision of high risk in second trimester (Resolved) 22-year-old female with pancreatitis with necrosis 1. Patient has pancreatitis of unknown etiology. She has no gallstones and this is recurrent pancreatitis. The initial CAT scan showed necrosis. Last night her pain worsened and this morning she had a repeat CT done which did not show any signs of infected necrosis. It did show worsening of the pancreatitis. 2. The patient is a creatinine has acutely risen. She is being given boluses and has IV fluids running at an increased rate. Recommend aggressive fluid resuscitation. 3. Patient's white count is normal. Pancreatitis shows no sign of infection. There are no air bubbles or fluid collections. 4. If the patient develops infected necrosis of the pancreas she would need transferred to tertiary care center for necrosectomy. There is no indication for cholecystectomy and she does not have gallstones and her LFTs are normal with normal common bile duct. Durga Savage MD Pager: [facility] [address] [place] [address], [address] [place] [address] Office:
--- NOTE | 2017-09-21 13:52 | PN.SURG_ITS ---
Patient Problems: Active and Suspected Problems (Last Reviewed 07/25/17 @ 14:54 by Sydni Chen) Recurrent acute pancreatitis (Acute) Subjective: Patient was a severe amount of pain overnight. 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 - Physical Exam General: Alert HEENT: Atraumatic, PERRLA Neck: No JVD Lungs: Normal air movement Cardiovascular: Tachycardic Abdomen: Soft, Tender - Diffuse tenderness worse in the epigastric region. Neurological: Cranial nerves II-XII grossly intact Psych/Mental Status: Normal Affect Vital Signs Temp Pulse Resp BP Pulse Ox 98.4 F 98 16 78/46 L 96 09/21/17 13:00 09/21/17 13:00 09/21/17 13:00 09/21/17 13:00 09/21/17 13:00 Oxygen Flow Rate (L/min) 3 Oxygen Delivery Method Nasal Cannula Weight: 231 lb 4.803 oz Body Mass Index (BMI) 40.9 Intake and Output for Last 24 Hours 09/19/17 09/20/17 09/21/17 23:59 23:59 23:59 Intake Total 1513 / 1513 1960.6 / 1960.6 Output Total 400 / 400 300 / 300 Balance 1113 / 1113 1660.6 / 1660.6 Laboratory Tests Past 24 Hrs 09/21/17 09/21/17 09/21/17 05:07 05:07 05:07 WBC 7.3 RBC 5.35 Hgb 14.3 Hct 43.6 MCV 81.5 MCH 26.7 L MCHC 32.8 RDW 17.5 H RDW Differential 50.9 H Plt Count 329 MPV 10.9 Immature Gran % (Auto) 0.100 Neut % (Auto) 83.2 H Lymph % (Auto) 11.8 L [place] % (Auto) 4.4 Eos % (Auto) 0.4 Baso % (Auto) 0.1 Absolute Neuts (auto) 6.1 Absolute Lymphs (auto) 0.86 Total Counted Not Reportable ESR Sodium Cancelled Potassium Cancelled Chloride Cancelled Carbon Dioxide Cancelled Anion Gap Cancelled BUN Cancelled Creatinine Cancelled Estim Creat Clear Calc Cancelled Est GFR (MDRD) Af Amer Cancelled Est GFR (MDRD) Non-Af Cancelled BUN/Creatinine Ratio Cancelled Glucose Cancelled Lactic Acid 1.1 Calcium Cancelled Phosphorus Cancelled Magnesium Cancelled Total Bilirubin Direct Bilirubin AST ALT Alkaline Phosphatase C-React Prot Ext Range Total Protein Albumin Cancelled Globulin Lipase Cancelled 09/21/17 09/21/17 09/21/17 05:07 05:45 05:45 WBC RBC Hgb Hct MCV MCH MCHC RDW RDW Differential Plt Count MPV Immature Gran % (Auto) Neut % (Auto) Lymph % (Auto) [place] % (Auto) Eos % (Auto) Baso % (Auto) Absolute Neuts (auto) Absolute Lymphs (auto) Total Counted ESR 43 H Sodium 136 Potassium TNP Chloride 106 Carbon Dioxide 16.0 L Anion Gap 14 BUN 17 Creatinine 2.42 H Estim Creat Clear Calc 30.16 Est GFR (MDRD) Af Amer 33 L Est GFR (MDRD) Non-Af 27 L BUN/Creatinine Ratio 7.0 L Glucose 143 H Lactic Acid Calcium Pending Phosphorus 3.4 Magnesium 1.7 Total Bilirubin 0.90 Direct Bilirubin < 0.05 AST TNP ALT TNP Alkaline Phosphatase 47 C-React Prot Ext Range Pending Total Protein 7.0 Albumin 2.2 L 2.2 L Globulin 4.8 H Lipase 4945 H POC Glucose 09/21/17 09/21/17 09/21/17 12:18 06:26 04:21 POC Glucose 145 H 132 H 139 H 09/21/17 09/20/17 01:08 16:32 POC Glucose 160 H 138 H Clinical Impression(s) from Imaging Studies Abdomen CT 09/21/17 04:58 IMPRESSION: Acute pancreatitis with diffuse peripancreatic and perinephric infiltration in keeping with progression of the acute pancreatitis. Increased density seen within the gallbladder lumen. Bibasilar atelectasis and/or infiltrate. Electronically Signed: Popeye Nichols MD at 9:01 EDT Tel [phone], Service support , Medical Necessity - Tobacco Use Smoking Status: Never smoker Tobacco Use: Non-smoker Assessment/Plan All Active Problems (Last Reviewed 07/25/17 @ 14:54 by Sydni Chen) Severe preeclampsia (Acute) Recurrent acute pancreatitis (Acute) Hypertension complicating in third trimester (Acute) High-risk in third trimester (Acute) Diabetes in (Acute) History of pre-eclampsia (Acute) Acute pancreatitis (Resolved) Hypertension affecting in second trimester (Resolved) Supervision of high risk in second trimester (Resolved) 22-year-old female with pancreatitis with necrosis 1. Patient has pancreatitis of unknown etiology. She has no gallstones and this is recurrent pancreatitis. The initial CAT scan showed necrosis. Last night her pain worsened and this morning she had a repeat CT done which did not show any signs of infected necrosis. It did show worsening of the pancreatitis. 2. The patient is a creatinine has acutely risen. She is being given boluses and has IV fluids running at an increased rate. Recommend aggressive fluid resuscitation. 3. Patient's white count is normal. Pancreatitis shows no sign of infection. There are no air bubbles or fluid collections. 4. If the patient develops infected necrosis of the pancreas she would need transferred to tertiary care center for necrosectomy. There is no indication for cholecystectomy and she does not have gallstones and her LFTs are normal with normal common bile duct. Durga Savage MD Pager: [facility] [address] [place] [address], [address] [place] [address] Office:
[2017-09-21 14:19] LABS: Albumin, Serum 2.3 g/dL (3.2-5.0); BUN 21 mg/dL (7-18); Chloride 109 mmol/L (98-107); Creatinine, Serum 3.32 mg/dL (0.55-1.02); EST Glomerular Filtration Rate 18 mL/min (>60); Est Glom Filt Rate - Afr Amer 22 mL/min (>60); Estimated Creatinine Clearance 21.99 ml/min; Glucose 145 mg/dL (74-106); Lipase 6234 U/L (73-393); Magnesium 1.5 mg/dL (1.6-2.6); Phosphorus 3.1 mg/dL (2.5-4.9); Sodium Level 140 mmol/L (136-145)
[2017-09-21 14:22] LABS: Potassium 4.7 mmol/L (3.5-5.1)
--- NOTE | 2017-09-21 16:15 | RAD_ITS ---
STUDY: X-RAY CHEST REASON FOR EXAM: Female, 22 years old. Acute pancreatitis, hypoxia TECHNIQUE: Single AP portable view of the chest. COMPARISON: Prior study of 08/12/2016 FINDINGS: There is a very poor inspiration. There is no demonstrated pleural abnormality. Normal size heart. Normal mediastinum and gwen. Normal visualized pulmonary arteries. Normal visualized aortic arch and descending thoracic aorta. Normal visualized thoracic spine. Normal visualized ribs, clavicles, and shoulders. There is no demonstrated abnormality of the visualized soft tissue structures of the upper abdomen. RAD/Chest 1 View (Portable) IMPRESSION: Very poor inspiration. No acute cardiopulmonary disease process is seen. Electronically Signed: Milan Damon MD at 16:40 EDT , Service support ,
[2017-09-21 17:40] LABS: Bedside Glucose 112 mg/dL (70-110)
[2017-09-21 18:22] LABS: ALB/GLOB Ratio 0.4 RATIO (0.9-2.4); AST(SGOT) 140 U/L (15-37); Alanine Aminotransfer ALT/SGPT 35 U/L (13-56); Albumin, Serum 1.7 g/dL (3.2-5.0); Alkaline Phosphatase 37 U/L (45-117); Anion Gap 12 (5-15); BUN 23 mg/dL (7-18); BUN/Creat Ratio 6.3 RATIO (10-20); Calcium,Total < 5.0 mg/dL (8.5-10.1); Chloride 111 mmol/L (98-107); Creatinine, Serum 3.64 mg/dL (0.55-1.02); EST Glomerular Filtration Rate 17 mL/min (>60); Est Glom Filt Rate - Afr Amer 20 mL/min (>60); Estimated Creatinine Clearance 20.05 ml/min; Globulin 3.8 g/dL (2.2-4.2); Glucose 118 mg/dL (74-106); Magnesium 1.3 mg/dL (1.6-2.6); Potassium 4.6 mmol/L (3.5-5.1); Protein, Total 5.5 g/dL (6.4-8.2); Sodium Level 139 mmol/L (136-145)
[2017-09-21] MEDS: Lactated Ringers 1,000 ML 250 ML IV ×2 (19:20→23:25)
--- NOTE | 2017-09-21 21:15 | NURSING ---
Received report on patient from Jessy Vazquez RN at this time. Pt. to go to room 110.
--- NOTE | 2017-09-21 21:15 | NURSING ---
Transferred to PCU 110 at this time. Bedside handoff given.
[2017-09-21] MEDS: Senna/Docusate Sodium 1 Tablet 2 TABLET PO (23:21)
[2017-09-22] VITALS (40 sets, daily range): BP systolic 109–215; BP diastolic 38–94; PULSE 53–122; RESP 15–46; TEMP 36.2–38.8; O2SAT 83–99
[2017-09-22 00:06] LABS: Bedside Glucose 124 mg/dL (70-110)
[2017-09-22 00:40] LABS: Calcium,Total < 5.0 mg/dL (8.5-10.1)
[2017-09-22] MEDS: Lactated Ringers 1,000 ML 250 ML IV ×3 (03:10→11:37)
--- NOTE | 2017-09-22 06:14 | NURSING ---
Dr. Ang here to see pt. Encourage ambulation, must wear SCDs and use IS. Remains NPO with sips and chips. Pt. very resistant to care and being touched. Would not even move her leg when asked. Refused to get repositioned or reposition self. Does not tolerate pain well. States, I just want everyone to leave me alone and stop bothering me so much.
--- NOTE | 2017-09-22 06:14 | PCM.PN.SRG ---
Patient Problems: Active and Suspected Problems (Last Reviewed 07/25/17 @ 14:54 by Sydni Chen) Recurrent acute pancreatitis (Acute) Subjective: Pt reports no ambulation in halls Pt has not had SCDs in place Pt states she has not been using her IS Pt states on her previous episode a year ago she was suppose to see a endocrine specialist but could not afford the visit No flatus, only burping - Physical Exam General: Alert, Oriented x3, Cooperative Lungs: - - poor excursion, clear apices Abdomen: Bowel Sounds Not Present, Distended, Obese, Tender Musculoskeletal: - - edema all four extremities Vital Signs Temp Pulse Resp BP Pulse Ox 100.8 F H 106 H 25 H 129/59 H 98 09/22/17 04:00 09/22/17 04:00 09/22/17 04:00 09/22/17 04:00 09/22/17 04:00 Oxygen Flow Rate (L/min) 2 Oxygen Delivery Method Nasal Cannula Weight: 231 lb 4.803 oz Body Mass Index (BMI) 40.9 Intake and Output for Last 24 Hours 09/20/17 09/21/17 09/22/17 23:59 23:59 23:59 Intake Total 1513 / 1513 9190.6 / 9190.6 1941 / 1941 Output Total 400 / 400 350 / 350 50 / 50 Balance 1113 / 1113 8840.6 / 8840.6 1891 / 1891 Laboratory Tests Past 24 Hrs 09/21/17 09/21/17 09/21/17 05:07 05:07 05:45 ESR 43 H Sodium Potassium Chloride Carbon Dioxide Anion Gap BUN Creatinine Estim Creat Clear Calc Est GFR (MDRD) Af Amer Est GFR (MDRD) Non-Af BUN/Creatinine Ratio Glucose Lactic Acid 1.1 Calcium Phosphorus Magnesium Total Bilirubin 0.90 Direct Bilirubin < 0.05 AST TNP ALT TNP Alkaline Phosphatase 47 C-React Prot Ext Range Total Protein 7.0 Albumin 2.2 L Globulin 4.8 H Albumin/Globulin Ratio Lipase 09/21/17 09/21/17 09/21/17 05:45 17:18 23:23 ESR Sodium 140 139 Potassium 4.7 4.6 Chloride 109 H 111 H Carbon Dioxide 14.0 L 16.0 L Anion Gap 14 12 BUN 21 H 23 H Creatinine 3.32 H 3.64 H Estim Creat Clear Calc 21.99 20.05 Est GFR (MDRD) Af Amer 22 L 20 L Est GFR (MDRD) Non-Af 18 L 17 L BUN/Creatinine Ratio 7.0 L 6.3 L Glucose 145 H 118 H Lactic Acid Calcium TNP < 5.0 L* < 5.0 L* Phosphorus 3.1 Magnesium 1.5 L 1.3 L Total Bilirubin 0.90 Direct Bilirubin AST 140 H ALT 35 Alkaline Phosphatase 37 L C-React Prot Ext Range 264.00 H Total Protein 5.5 L Albumin 2.3 L 1.7 L Globulin 3.8 Albumin/Globulin Ratio 0.4 L Lipase 6234 H 09/21/17 23:23 ESR Sodium Potassium Chloride Carbon Dioxide Anion Gap BUN Creatinine Estim Creat Clear Calc Est GFR (MDRD) Af Amer Est GFR (MDRD) Non-Af BUN/Creatinine Ratio Glucose Lactic Acid TNP Calcium Phosphorus Magnesium Total Bilirubin Direct Bilirubin AST ALT Alkaline Phosphatase C-React Prot Ext Range Total Protein Albumin Globulin Albumin/Globulin Ratio Lipase POC Glucose 09/22/17 09/21/17 09/21/17 00:02 17:29 12:18 POC Glucose 124 H 112 H 145 H 09/21/17 06:26 POC Glucose 132 H Medical Necessity - Tobacco Use Smoking Status: Never smoker Tobacco Use: Non-smoker Assessment/Plan All Active Problems (Last Reviewed 07/25/17 @ 14:54 by Sydni Chen) Severe preeclampsia (Acute) Recurrent acute pancreatitis (Acute) Hypertension complicating in third trimester (Acute) High-risk in third trimester (Acute) Diabetes in (Acute) History of pre-eclampsia (Acute) Acute pancreatitis (Resolved) Hypertension affecting in second trimester (Resolved) Supervision of high risk in second trimester (Resolved) Significant pancreatic necrosis and saponification ON Admission Glu 160 on admission/ less than 220 Age <70 WBC 13.1 <18 LDH not checked this admission AST 18 <250 48hr HCT drop 14% BUN increase 9 (>5increase) Calcium <5 (far less than 8) PO2 96 but on 2liters POLICE DETECTIVE Base deficit no ABG obtained Fluid >4 liters At least 4 [place] criteria met: Assoc. mortality 15% If one more criteria met then mortality increases to 40% UOP only ?50cc Pt needs continued aggressive resuscitation and electrolyte repletion. Pt needs SCDs for DVT prophylaxis and mobilization. She had been prescribed lovenox on admission which would not be advised with this degree of pancreatic necrosis. I have vigorously encouraged her to assist with mobilization and IS I would not start p.o. at this time As discussed with Dr Rivero, recommend tertiary referral
[2017-09-22 06:26] LABS: Bedside Glucose 126 mg/dL (70-110)
[2017-09-22 07:00] LABS: Calcium,Total < 5.0 mg/dL (8.5-10.1)
--- NOTE | 2017-09-22 07:16 | NURSING ---
Pt. sat up in bed and stood at bedside with assist of 2. Very weak and painful. Pt. does not want to go sit in chair, states it is not comfortable for her.
[2017-09-22 07:41] LABS: Hematocrit 39.5 % (37-47); Hemoglobin 12.8 g/dl (12.0-15.0); Mean Corp Hgb Conc 32.4 g/gl (32-36); Mean Corpuscular Volume 80.3 fL (81-99); Mean Platelet Vol. 10.6 fl (6.2-12.0); Platelet Count 309 K/mm3 (150-450); RBC Distribution Width CV 17.2 % (11.6-14.6); RBC Distribution Width SD 50.2 fl (35.1-43.9); Red Blood Count 4.92 M/mm3 (4.2-5.4); White Blood Count 9.8 K/mm3 (4.4-11.0)
[2017-09-22 07:43] LABS: Scan Indicated on CBC? Y/N NO
[2017-09-22 08:23] LABS: ALB/GLOB Ratio 0.4 RATIO (0.9-2.4); AST(SGOT) 188 U/L (15-37); Alanine Aminotransfer ALT/SGPT 63 U/L (13-56); Albumin, Serum 1.7 g/dL (3.2-5.0); Alkaline Phosphatase 52 U/L (45-117); Anion Gap 16 (5-15); BUN 33 mg/dL (7-18); Calcium,Total < 5.0 mg/dL (8.5-10.1); Chloride 109 mmol/L (98-107); Creatinine, Serum 4.71 mg/dL (0.55-1.02); EST Glomerular Filtration Rate 12 mL/min (>60); Est Glom Filt Rate - Afr Amer 15 mL/min (>60); Globulin 4.4 g/dL (2.2-4.2); Glucose 148 mg/dL (74-106); Lipase 3124 U/L (73-393); Magnesium 2.2 mg/dL (1.6-2.6); Potassium 4.6 mmol/L (3.5-5.1); Protein, Total 6.1 g/dL (6.4-8.2); Sodium Level 137 mmol/L (136-145)
[2017-09-22] MEDS: Furosemide 100 MG/10 ML Vial 80 MG IV (10:09)
[2017-09-22] MEDS: 0.9% NaCl Peripheral Flush Adult/Peds IV ×2 (10:09→22:31)
[2017-09-22] MEDS: Labetalol 100 MG Tablet PO ×2 (10:22→22:31)
[2017-09-22] MEDS: Fenofibrate 145 MG Tablet PO (11:37)
--- NOTE | 2017-09-22 12:16 | PN_ITS ---
Patient Problems: Active and Suspected Problems (Last Reviewed 07/25/17 @ 14:54 by Sydni Chen) Recurrent acute pancreatitis (Acute) Subjective: Patient seen and examined. Complains of continued abdominal pain. States her pain is 5 out of 10 with rest and 10 out of 10 with movement. Denies nausea, vomiting. Denies shortness of breath. Denies fever, chills. She does state she was told she had a fever overnight. Denies other current complaints. - Physical Exam General: Alert, Oriented x3, Cooperative HEENT: Atraumatic, PERRLA, EOMI, Normocephalic Neck: Supple, No JVD, Negative Carotid Bruits Lungs: Clear to auscultation, Normal air movement Cardiovascular: Regular Rhythm, Normal S1, Normal S2, No murmurs, Tachycardic Abdomen: Bowel Sounds Present, Soft, Non-Distended, Obese, Tender - Generalized tenderness to palpation. Extremities: No clubbing, No cyanosis, No edema, Capillary Refill Less than 3 Seconds Skin: No rashes, No breakdown Musculoskeletal: No Tenderness to Palpation of Joints or Extremities Neurological: Cranial nerves II-XII grossly intact, Neuro grossly intact Psych/Mental Status: Normal Affect, Appropriate Vital Signs Temp Pulse Resp BP Pulse Ox 101.4 F H 117 H 23 H 146/76 H 96 09/22/17 10:00 09/22/17 11:19 09/22/17 10:27 09/22/17 10:00 09/22/17 11:05 Oxygen Flow Rate (L/min) 2 Oxygen Delivery Method Nasal Cannula Weight: 104.916 kg Body Mass Index (BMI) 40.9 Intake and Output for Last 24 Hours 09/20/17 09/21/17 09/22/17 23:59 23:59 23:59 Intake Total 1513 / 1513 9190.6 / 9190.6 194 / 194 Output Total 400 / 400 350 / 350 50 / 50 Balance 1113 / 1113 8840.6 / 8840.6 1890 / 189 Laboratory Tests Past 24 Hrs 09/21/17 09/21/17 09/21/17 05:45 17:18 23:23 WBC RBC Hgb Hct MCV MCH MCHC RDW RDW Differential Plt Count MPV Sodium 140 139 Potassium 4.7 4.6 Chloride 109 H 111 H Carbon Dioxide 14.0 L 16.0 L Anion Gap 14 12 BUN 21 H 23 H Creatinine 3.32 H 3.64 H Estim Creat Clear Calc 21.99 20.05 Est GFR (MDRD) Af Amer 22 L 20 L Est GFR (MDRD) Non-Af 18 L 17 L BUN/Creatinine Ratio 7.0 L 6.3 L Glucose 145 H 118 H Lactic Acid Calcium < 5.0 L* < 5.0 L* < 5.0 L* Phosphorus 3.1 Magnesium 1.5 L 1.3 L Total Bilirubin 0.90 AST 140 H ALT 35 Alkaline Phosphatase 37 L C-React Prot Ext Range 264.00 H Total Protein 5.5 L Albumin 2.3 L 1.7 L Globulin 3.8 Albumin/Globulin Ratio 0.4 L Lipase 6234 H 09/21/17 09/22/17 09/22/17 23:23 07:20 07:20 WBC 9.8 RBC 4.92 Hgb 12.8 Hct 39.5 MCV 80.3 L MCH 26.0 L MCHC 32.4 RDW 17.2 H RDW Differential 50.2 H Plt Count 309 MPV 10.6 Sodium 137 Potassium 4.6 Chloride 109 H Carbon Dioxide 12.0 L Anion Gap 16 H BUN 33 H Creatinine 4.71 H Estim Creat Clear Calc 15.50 Est GFR (MDRD) Af Amer 15 L Est GFR (MDRD) Non-Af 12 L BUN/Creatinine Ratio 7.0 L Glucose 148 H Lactic Acid TNP Calcium < 5.0 L* Phosphorus Magnesium 2.2 Total Bilirubin 1.00 AST 188 H ALT 63 H Alkaline Phosphatase 52 C-React Prot Ext Range Total Protein 6.1 L Albumin 1.7 L Globulin 4.4 H Albumin/Globulin Ratio 0.4 L Lipase 3124 H 09/22/17 09/22/17 07:20 07:20 WBC RBC Hgb Hct MCV MCH MCHC RDW RDW Differential Plt Count MPV Sodium Potassium Chloride Carbon Dioxide Anion Gap BUN Creatinine Estim Creat Clear Calc Est GFR (MDRD) Af Amer Est GFR (MDRD) Non-Af BUN/Creatinine Ratio Glucose Lactic Acid Cancelled Calcium Phosphorus Magnesium Cancelled Total Bilirubin AST ALT Alkaline Phosphatase C-React Prot Ext Range Total Protein Albumin Globulin Albumin/Globulin Ratio Lipase POC Glucose 09/22/17 09/22/17 09/21/17 06:20 00:02 17:29 POC Glucose 126 H 124 H 112 H 09/21/17 12:18 POC Glucose 145 H Medical Necessity - Tobacco Use Smoking Status: Never smoker Tobacco Use: Non-smoker Assessment/Plan All Active Problems (Last Reviewed 07/25/17 @ 14:54 by Sydni Chen) Severe preeclampsia (Acute) Recurrent acute pancreatitis (Acute) Hypertension complicating in third trimester (Acute) High-risk in third trimester (Acute) Diabetes in (Acute) History of pre-eclampsia (Acute) Acute pancreatitis (Resolved) Hypertension affecting in second trimester (Resolved) Supervision of high risk in second trimester (Resolved) Patient is a 22-year-old female admitted 09/20/2017 due to abdominal pain, nausea , vomiting. She has a past medical history of type 2 diabetes mellitus, depression, migraine cephalgia, hyperlipidemia, hypertension, morbid obesity and recurrent pancreatitis. 1. Recurrent pancreatitis with pancreatic necrosis-lipase improved from yesterday. Continue IV fluids. Remain n.p.o. Trend lipase. 2. Acute kidney injury-nephrology consulted, pending. Continue aggressive IV fluids. Trend BMP. Strict I&O. Obtain urine sodium, urine creatinine. Possible ATN. 3. Hypocalcemia-IV calcium supplementation. Trend BMP. 4. Acute hypoxia-etiology unclear. Obtain stat chest x-ray. Continue supplemental oxygen to maintain O2 at or above 90%. 5. Hypertension/preeclampsia-stable, continue labetalol. 6. Hyperlipidemia-continue fenofibrate. 7. Type 2 diabetes mellitus-metformin regimen on hold. Accu-Cheks before meals at bedtime with sliding scale insulin. 8. Depression-continue home sertraline regimen. 9. History of migraines 10. Morbid obesity-encourage diet and lifestyle modifications. Nutrition consult. DVT prophylaxis-SCDs. This patient was seen by MARISA Kirkpatrick under the supervision of Dr. Rivero.
[2017-09-22] MEDS: Sertraline 100 MG Tablet PO (12:25)
[2017-09-22 12:41] LABS: Bedside Glucose 144 mg/dL (70-110)
--- NOTE | 2017-09-22 13:00 | RAD_ITS ---
STUDY: X-RAY CHEST REASON FOR EXAM: Female, 22 years old. Acute pancreatitis, shortness of breath. TECHNIQUE: Single AP portable view of the chest. COMPARISON: 21 September 2017 FINDINGS: Low lung volume and interstitial crowding is noted with no large focal consolidation. There is no demonstrated pleural abnormality. Normal size heart. Normal mediastinum and gwen. Normal visualized pulmonary arteries. Normal visualized aortic arch and descending thoracic aorta. Normal visualized thoracic spine. Normal visualized ribs, clavicles, and shoulders. There is no demonstrated abnormality of the visualized soft tissue structures of the upper abdomen. RAD/Chest 1 View (Portable) IMPRESSION: Limited by technique with low lung volume and interstitial crowding. No evidence of focal consolidation. Electronically Signed: Channing Mcmullen DO at 13:55 EDT , Service support ,
--- NOTE | 2017-09-22 14:12 | CPS ---
started by nursing
--- NOTE | 2017-09-22 14:12 | CPS ---
started by nursing
[2017-09-22 14:31] LABS: Calcium,Total 5.3 mg/dL (8.5-10.1)
--- NOTE | 2017-09-22 14:44 | CM.UR ---
Met face to face with patient. Patient is young. Lives with and 2 children. Denies any anticipated needs. Instructed case management will remain available should any needs arise. Verb understanding. Higinio Jara RN, CCM.
--- NOTE | 2017-09-22 15:14 | PCM.CONS.R ---
Problem List (1) KIM (acute kidney injury) Status: Acute Consultation - Renal 09/22/17 PCP/ Referring MD: Requesting physician: Dr Rivero Primary care physician: Bryant Cardona MD Reason for Consultation:: KIM - History of Present Illness History of Present Illness: The patient is a 22 year old F admitted 2 days ago with severe abdominal pain, nausea. renal consulted for pancreatitis. apparently she had one episode of pancreatitis last year with pseudocyst formation, was transferred to [facility] and was treated conservatively. She is now about 10 weeks post and recently started estrogen patch for contraception. presented with severe abdominal pain, nausea. found to have acute pancreatitis. preadmission discharge includes diabetes which was treated with metformin Creatinine on day of admission 09/20 was normal and less than 1 had an acute rise in creatinine yesterday. She now has a taveras in place but had not made any urine since yesterday we gave her a dose of IV lasix 80 mg once and she did not respond (made only 50cc) currently somewhat drowsy. other than abdominal pain denies any complaints remains NPO - Allergies Allergies: Allergies No Known Allergies Allergy (Verified 09/20/17 03:46) - Current Medications Current Medications: Current Medications Acetaminophen (Tylenol) 650 mg PO Q4H PRN PRN PRN Reason: FEVER Bisacodyl (Dulcolax) 10 mg RECTAL .X1 PRN PRN PRN Reason: See label comments Bisacodyl (Dulcolax) 10 mg PO .X1 PRN PRN PRN Reason: See label comments Fenofibrate (Tricor) 145 mg PO DAILY [facility] Last Admin: 09/22/17 11:37 Dose: 145 mg Hydromorphone HCl (Dilaudid Hair Cutter) 20 mg IV UD [facility] PRN Reason: Protocol Naloxone HCl 4 mg/ Dextrose 504 mls @ 0 mls/hr IV .Q0M PRN; Protocol; Titrate PRN Reason: To maintain Resp. rate >10 Famotidine 20 mg/ Sodium (Chloride) 10 mls @ 300 mls/hr IV Q12 [facility] Last Admin: 09/22/17 10:09 Dose: 300 mls/hr Naloxone HCl 4 mg/ Dextrose 504 mls @ 0 mls/hr IV .Q0M PRN; Protocol; Titrate PRN Reason: To maintain Resp. rate >10 Calcium Chloride 2 gm/ (Dextrose) 120 mls @ 60 mls/hr IV X1 ONE Stop: 09/22/17 17:59 Insulin Human Lispro (Humalog Chiquitapen (Bkc)) 0 unit SC Q6 [facility] PRN Reason: Protocol Last Admin: 09/22/17 11:44 Dose: Not Given Labetalol HCl (Trandate) 100 mg PO BID [facility] Last Admin: 09/22/17 10:22 Dose: 100 mg Magnesium Hydroxide (Milk Of Magnesia) 30 ml PO DAILY PRN PRN PRN Reason: Constipation Naloxone HCl (Narcan) 0.02 mg IV Q1M PRN PRN Reason: RR <10 and pt unresponsive Promethazine HCl (Phenergan) 6.25 - 12.5 mg IV Q6H PRN PRN PRN Reason: NAUSEA/VOMITING Last Admin: 09/20/17 08:43 Dose: 12.5 mg Senna/Docusate Sodium (Senokot-S, Dunia-Colace) 2 tablet PO QHS [facility] Last Admin: 09/21/17 23:21 Dose: 2 tablet Sertraline HCl (Zoloft) 100 mg PO DAILY [facility] Last Admin: 09/22/17 12:25 Dose: 100 mg Sodium Chloride () 5 - 30 ml IV UD PRN PRN Reason: SALINE FLUSH Last Admin: 09/22/17 10:09 Dose: 10 ml - Past Medical History Past Medical History (Chronic Problems): Chronic Problems (Last Reviewed 07/25/17 @ 14:54 by Sydni Chen) Depression (Chronic) zoloft Type 2 diabetes mellitus (Chronic) Migraine headache (Chronic) Hyperlipidemia (Chronic) - Past Surgical History Surgical History: no surgical history - Social History Smoking Status: Never smoker Alcohol: None Drugs: None - Family History Maternal Family History: Family History (Last Reviewed 09/20/17 @ 06:50 by Debbie Ann DO) Mother Diabetes Grandmother Diabetes Grandfather Diabetes Father hyperlipidemia History Items: Diabetes Paternal Family History: Family History (Last Reviewed 09/20/17 @ 06:50 by Debbie Ann DO) Mother Diabetes Grandmother Diabetes Grandfather Diabetes Father hyperlipidemia History Items: Diabetes Review of Systems Comment: ROS negative except above Patient Problems: Active and Suspected Problems (Last Reviewed 07/25/17 @ 14:54 by Sydni Chen) Recurrent acute pancreatitis (Acute) KIM (acute kidney injury) (Acute) - Physical Exam General: Alert, Oriented x3 HEENT: Atraumatic, PERRLA, EOMI, Normocephalic Neck: Supple, No JVD, Negative Carotid Bruits Lungs: Clear to auscultation Cardiovascular: Regular rate, No murmurs Abdomen: Bowel Sounds Present, Guarding, Tender Extremities: Edema Skin: No rashes, No breakdown Psych/Mental Status: Normal Affect Vital Signs Temp Pulse Resp BP Pulse Ox 97.8 F 112 H 44 H 138/72 H 88 09/22/17 14:00 09/22/17 14:00 09/22/17 14:17 09/22/17 14:00 09/22/17 14:17 Oxygen Flow Rate (L/min) 2 Oxygen Delivery Method Nasal Cannula Weight: 104.916 kg Body Mass Index (BMI) 40.9 Intake and Output for Last 24 Hours 09/20/17 09/21/17 09/22/17 23:59 23:59 23:59 Intake Total 1513 / 1513 9190.6 / 9190.6 4025 / 4025 Output Total 400 / 400 350 / 350 100 / 100 Balance 1113 / 1113 8840.6 / 8840.6 3925 / 3925 Laboratory Tests Past 24 Hrs 09/21/17 09/21/17 09/21/17 05:45 17:18 23:23 WBC RBC Hgb Hct MCV MCH MCHC RDW RDW Differential Plt Count MPV Sodium 139 Potassium 4.6 Chloride 111 H Carbon Dioxide 16.0 L Anion Gap 12 BUN 23 H Creatinine 3.64 H Estim Creat Clear Calc 20.05 Est GFR (MDRD) Af Amer 20 L Est GFR (MDRD) Non-Af 17 L BUN/Creatinine Ratio 6.3 L Glucose 118 H Lactic Acid Calcium < 5.0 L* < 5.0 L* < 5.0 L* Magnesium 1.3 L Total Bilirubin 0.90 AST 140 H ALT 35 Alkaline Phosphatase 37 L Total Protein 5.5 L Albumin 1.7 L Globulin 3.8 Albumin/Globulin Ratio 0.4 L Lipase U Random Total Protein Ur Random Sodium Urine Creatinine Protein/Creatinin Ratio 09/21/17 09/22/17 09/22/17 23:23 07:20 07:20 WBC 9.8 RBC 4.92 Hgb 12.8 Hct 39.5 MCV 80.3 L MCH 26.0 L MCHC 32.4 RDW 17.2 H RDW Differential 50.2 H Plt Count 309 MPV 10.6 Sodium 137 Potassium 4.6 Chloride 109 H Carbon Dioxide 12.0 L Anion Gap 16 H BUN 33 H Creatinine 4.71 H Estim Creat Clear Calc 15.50 Est GFR (MDRD) Af Amer 15 L Est GFR (MDRD) Non-Af 12 L BUN/Creatinine Ratio 7.0 L Glucose 148 H Lactic Acid TNP Calcium < 5.0 L* Magnesium 2.2 Total Bilirubin 1.00 AST 188 H ALT 63 H Alkaline Phosphatase 52 Total Protein 6.1 L Albumin 1.7 L Globulin 4.4 H Albumin/Globulin Ratio 0.4 L Lipase 3124 H U Random Total Protein Ur Random Sodium Urine Creatinine Protein/Creatinin Ratio 09/22/17 09/22/17 09/22/17 07:20 07:20 14:05 WBC RBC Hgb Hct MCV MCH MCHC RDW RDW Differential Plt Count MPV Sodium Potassium Chloride Carbon Dioxide Anion Gap BUN Creatinine Estim Creat Clear Calc Est GFR (MDRD) Af Amer Est GFR (MDRD) Non-Af BUN/Creatinine Ratio Glucose Lactic Acid Cancelled Calcium 5.3 L* Magnesium Cancelled Total Bilirubin AST ALT Alkaline Phosphatase Total Protein Albumin Globulin Albumin/Globulin Ratio Lipase U Random Total Protein Ur Random Sodium Urine Creatinine Protein/Creatinin Ratio 09/22/17 09/22/17 14:55 14:55 WBC RBC Hgb Hct MCV MCH MCHC RDW RDW Differential Plt Count MPV Sodium Potassium Chloride Carbon Dioxide Anion Gap BUN Creatinine Estim Creat Clear Calc Est GFR (MDRD) Af Amer Est GFR (MDRD) Non-Af BUN/Creatinine Ratio Glucose Lactic Acid Calcium Magnesium Total Bilirubin AST ALT Alkaline Phosphatase Total Protein Albumin Globulin Albumin/Globulin Ratio Lipase U Random Total Protein Pending Ur Random Sodium Pending Urine Creatinine Pending Pending Protein/Creatinin Ratio Pending POC Glucose 09/22/17 09/22/17 09/22/17 11:43 06:20 00:02 POC Glucose 144 H 126 H 124 H 09/21/17 17:29 POC Glucose 112 H Assessment/Plan All Active Problems (Last Reviewed 07/25/17 @ 14:54 by Sydni Chen) Severe preeclampsia (Acute) Recurrent acute pancreatitis (Acute) KIM (acute kidney injury) (Acute) Hypertension complicating in third trimester (Acute) High-risk in third trimester (Acute) Diabetes in (Acute) History of pre-eclampsia (Acute) Acute pancreatitis (Resolved) Hypertension affecting in second trimester (Resolved) Supervision of high risk in second trimester (Resolved) KIM. normal baseline even on day of admission on 7.5. Creatinine acutely increased to mid 3 s yesterday and above [address] abdomen does not show hydronephrosis. UA shows some RBCc but she had a taveras in place and now oliguric hence reliability is limited. She did have a contrast study on the . Most likely she had ATN likely related to combination of severe pancreatitis and contrast exposure. Unfortunately she did not respond to lasix challenge. for today K levels are ok. Bicarbonate is low, will check ABG today. She is net positive 10 L since admission. Hold off CELERY STRIPPER for now. stop ringers lactate for now. further fluid choice depending on ABG. will probably start less than what she is getting now Acidosis. elevated gap. last lactate was normal. sugars are ok. Gap acidosis could be related to KIM. IV bicarbonate may worsen the hypocalcemia. will continue either RL or NS depending on ABG Hypocalcemia. Phos was normal yesterday. Likely related to pancreatitis. repleted this am and calcium is better. would give 2 more gm of calcium IV Even if her renal failure is bad enough to require CELERY STRIPPER, should be temporary. d/w mother at bedside d/w Dr Rivero
--- NOTE | 2017-09-22 15:26 | CON.PCM_ITS ---
Problem List (1) KIM (acute kidney injury) Status: Acute Consultation - Renal 09/22/17 PCP/ Referring MD: Requesting physician: Dr Rivero Primary care physician: Bryant Cardona MD Reason for Consultation:: KIM - History of Present Illness History of Present Illness: The patient is a 22 year old F admitted 2 days ago with severe abdominal pain, nausea. renal consulted for pancreatitis. apparently she had one episode of pancreatitis last year with pseudocyst formation, was transferred to [facility] and was treated conservatively. She is now about 10 weeks post and recently started estrogen patch for contraception. presented with severe abdominal pain, nausea. found to have acute pancreatitis. preadmission discharge includes diabetes which was treated with metformin Creatinine on day of admission 09/20 was normal and less than 1 had an acute rise in creatinine yesterday. She now has a taveras in place but had not made any urine since yesterday we gave her a dose of IV lasix 80 mg once and she did not respond (made only 50cc) currently somewhat drowsy. other than abdominal pain denies any complaints remains NPO - Allergies Allergies: Allergies No Known Allergies Allergy (Verified 09/20/17 03:46) - Current Medications Current Medications: Current Medications Acetaminophen (Tylenol) 650 mg PO Q4H PRN PRN PRN Reason: FEVER Bisacodyl (Dulcolax) 10 mg RECTAL .X1 PRN PRN PRN Reason: See label comments Bisacodyl (Dulcolax) 10 mg PO .X1 PRN PRN PRN Reason: See label comments Fenofibrate (Tricor) 145 mg PO DAILY [facility] Last Admin: 09/22/17 11:37 Dose: 145 mg Hydromorphone HCl (Dilaudid Assistant Golf Course Superintendent) 20 mg IV UD [facility] PRN Reason: Protocol Naloxone HCl 4 mg/ Dextrose 504 mls @ 0 mls/hr IV .Q0M PRN; Protocol; Titrate PRN Reason: To maintain Resp. rate >10 Famotidine 20 mg/ Sodium (Chloride) 10 mls @ 300 mls/hr IV Q12 [facility] Last Admin: 09/22/17 10:09 Dose: 300 mls/hr Naloxone HCl 4 mg/ Dextrose 504 mls @ 0 mls/hr IV .Q0M PRN; Protocol; Titrate PRN Reason: To maintain Resp. rate >10 Calcium Chloride 2 gm/ (Dextrose) 120 mls @ 60 mls/hr IV X1 ONE Stop: 09/22/17 17:59 Insulin Human Lispro (Humalog Chiquitapen (Bkc)) 0 unit SC Q6 [facility] PRN Reason: Protocol Last Admin: 09/22/17 11:44 Dose: Not Given Labetalol HCl (Trandate) 100 mg PO BID [facility] Last Admin: 09/22/17 10:22 Dose: 100 mg Magnesium Hydroxide (Milk Of Magnesia) 30 ml PO DAILY PRN PRN PRN Reason: Constipation Naloxone HCl (Narcan) 0.02 mg IV Q1M PRN PRN Reason: RR <10 and pt unresponsive Promethazine HCl (Phenergan) 6.25 - 12.5 mg IV Q6H PRN PRN PRN Reason: NAUSEA/VOMITING Last Admin: 09/20/17 08:43 Dose: 12.5 mg Senna/Docusate Sodium (Senokot-S, Dunia-Colace) 2 tablet PO QHS [facility] Last Admin: 09/21/17 23:21 Dose: 2 tablet Sertraline HCl (Zoloft) 100 mg PO DAILY [facility] Last Admin: 09/22/17 12:25 Dose: 100 mg Sodium Chloride () 5 - 30 ml IV UD PRN PRN Reason: SALINE FLUSH Last Admin: 09/22/17 10:09 Dose: 10 ml - Past Medical History Past Medical History (Chronic Problems): Chronic Problems (Last Reviewed 07/25/17 @ 14:54 by Sydni Chen) Depression (Chronic) zoloft Type 2 diabetes mellitus (Chronic) Migraine headache (Chronic) Hyperlipidemia (Chronic) - Past Surgical History Surgical History: no surgical history - Social History Smoking Status: Never smoker Alcohol: None Drugs: None - Family History Maternal Family History: Family History (Last Reviewed 09/20/17 @ 06:50 by Debbie Ann DO) Mother Diabetes Grandmother Diabetes Grandfather Diabetes Father hyperlipidemia History Items: Diabetes Paternal Family History: Family History (Last Reviewed 09/20/17 @ 06:50 by Debbie Ann DO) Mother Diabetes Grandmother Diabetes Grandfather Diabetes Father hyperlipidemia History Items: Diabetes Review of Systems Comment: ROS negative except above Patient Problems: Active and Suspected Problems (Last Reviewed 07/25/17 @ 14:54 by Sydni Chen) Recurrent acute pancreatitis (Acute) KIM (acute kidney injury) (Acute) - Physical Exam General: Alert, Oriented x3 HEENT: Atraumatic, PERRLA, EOMI, Normocephalic Neck: Supple, No JVD, Negative Carotid Bruits Lungs: Clear to auscultation Cardiovascular: Regular rate, No murmurs Abdomen: Bowel Sounds Present, Guarding, Tender Extremities: Edema Skin: No rashes, No breakdown Psych/Mental Status: Normal Affect Vital Signs Temp Pulse Resp BP Pulse Ox 97.8 F 112 H 44 H 138/72 H 88 09/22/17 14:00 09/22/17 14:00 09/22/17 14:17 09/22/17 14:00 09/22/17 14:17 Oxygen Flow Rate (L/min) 2 Oxygen Delivery Method Nasal Cannula Weight: 104.916 kg Body Mass Index (BMI) 40.9 Intake and Output for Last 24 Hours 09/20/17 09/21/17 09/22/17 23:59 23:59 23:59 Intake Total 1513 / 1513 9190.6 / 9190.6 4025 / 4025 Output Total 400 / 400 350 / 350 100 / 100 Balance 1113 / 1113 8840.6 / 8840.6 3925 / 3925 Laboratory Tests Past 24 Hrs 09/21/17 09/21/17 09/21/17 05:45 17:18 23:23 WBC RBC Hgb Hct MCV MCH MCHC RDW RDW Differential Plt Count MPV Sodium 139 Potassium 4.6 Chloride 111 H Carbon Dioxide 16.0 L Anion Gap 12 BUN 23 H Creatinine 3.64 H Estim Creat Clear Calc 20.05 Est GFR (MDRD) Af Amer 20 L Est GFR (MDRD) Non-Af 17 L BUN/Creatinine Ratio 6.3 L Glucose 118 H Lactic Acid Calcium < 5.0 L* < 5.0 L* < 5.0 L* Magnesium 1.3 L Total Bilirubin 0.90 AST 140 H ALT 35 Alkaline Phosphatase 37 L Total Protein 5.5 L Albumin 1.7 L Globulin 3.8 Albumin/Globulin Ratio 0.4 L Lipase U Random Total Protein Ur Random Sodium Urine Creatinine Protein/Creatinin Ratio 09/21/17 09/22/17 09/22/17 23:23 07:20 07:20 WBC 9.8 RBC 4.92 Hgb 12.8 Hct 39.5 MCV 80.3 L MCH 26.0 L MCHC 32.4 RDW 17.2 H RDW Differential 50.2 H Plt Count 309 MPV 10.6 Sodium 137 Potassium 4.6 Chloride 109 H Carbon Dioxide 12.0 L Anion Gap 16 H BUN 33 H Creatinine 4.71 H Estim Creat Clear Calc 15.50 Est GFR (MDRD) Af Amer 15 L Est GFR (MDRD) Non-Af 12 L BUN/Creatinine Ratio 7.0 L Glucose 148 H Lactic Acid TNP Calcium < 5.0 L* Magnesium 2.2 Total Bilirubin 1.00 AST 188 H ALT 63 H Alkaline Phosphatase 52 Total Protein 6.1 L Albumin 1.7 L Globulin 4.4 H Albumin/Globulin Ratio 0.4 L Lipase 3124 H U Random Total Protein Ur Random Sodium Urine Creatinine Protein/Creatinin Ratio 09/22/17 09/22/17 09/22/17 07:20 07:20 14:05 WBC RBC Hgb Hct MCV MCH MCHC RDW RDW Differential Plt Count MPV Sodium Potassium Chloride Carbon Dioxide Anion Gap BUN Creatinine Estim Creat Clear Calc Est GFR (MDRD) Af Amer Est GFR (MDRD) Non-Af BUN/Creatinine Ratio Glucose Lactic Acid Cancelled Calcium 5.3 L* Magnesium Cancelled Total Bilirubin AST ALT Alkaline Phosphatase Total Protein Albumin Globulin Albumin/Globulin Ratio Lipase U Random Total Protein Ur Random Sodium Urine Creatinine Protein/Creatinin Ratio 09/22/17 09/22/17 14:55 14:55 WBC RBC Hgb Hct MCV MCH MCHC RDW RDW Differential Plt Count MPV Sodium Potassium Chloride Carbon Dioxide Anion Gap BUN Creatinine Estim Creat Clear Calc Est GFR (MDRD) Af Amer Est GFR (MDRD) Non-Af BUN/Creatinine Ratio Glucose Lactic Acid Calcium Magnesium Total Bilirubin AST ALT Alkaline Phosphatase Total Protein Albumin Globulin Albumin/Globulin Ratio Lipase U Random Total Protein Pending Ur Random Sodium Pending Urine Creatinine Pending Pending Protein/Creatinin Ratio Pending POC Glucose 09/22/17 09/22/17 09/22/17 11:43 06:20 00:02 POC Glucose 144 H 126 H 124 H 09/21/17 17:29 POC Glucose 112 H Assessment/Plan All Active Problems (Last Reviewed 07/25/17 @ 14:54 by Sydni Chen) Severe preeclampsia (Acute) Recurrent acute pancreatitis (Acute) KIM (acute kidney injury) (Acute) Hypertension complicating in third trimester (Acute) High-risk in third trimester (Acute) Diabetes in (Acute) History of pre-eclampsia (Acute) Acute pancreatitis (Resolved) Hypertension affecting in second trimester (Resolved) Supervision of high risk in second trimester (Resolved) KIM. normal baseline even on day of admission on 7.5. Creatinine acutely increased to mid 3 s yesterday and above [address] abdomen does not show hydronephrosis. UA shows some RBCc but she had a tavreas in place and now oliguric hence reliability is limited. She did have a contrast study on the . Most likely she had ATN likely related to combination of severe pancreatitis and contrast exposure. Unfortunately she did not respond to lasix challenge. for today K levels are ok. Bicarbonate is low, will check ABG today. She is net positive 10 L since admission. Hold off TUBER MACHINE CUTTER for now. stop ringers lactate for now. further fluid choice depending on ABG. will probably start less than what she is getting now Acidosis. elevated gap. last lactate was normal. sugars are ok. Gap acidosis could be related to KIM. IV bicarbonate may worsen the hypocalcemia. will continue either RL or NS depending on ABG Hypocalcemia. Phos was normal yesterday. Likely related to pancreatitis. repleted this am and calcium is better. would give 2 more gm of calcium IV Even if her renal failure is bad enough to require TUBER MACHINE CUTTER, should be temporary. d/w mother at bedside d/w Dr Rivero
[2017-09-22 15:45] LABS: Protein, Urine (Random) 233.2 mg/dL (<11.9); Protein:Creat Ratio 929 mg/g CRE (0-200); Urine Sodium 39 mmol/L (Not Establ.)
[2017-09-22 16:00] LABS: Allen Test POS; Base Excess -17 mmol/L (-2 to +2); Bicarbonate 9.3 mmol/L (22-26); Blood Gas Specimen Type ART; O2 Delivery Device Nasal Can; PO2 79 mmHG (75-100); SITE R Radial; SO2 95 % (95-99); Time Given 1600; Total Carbon Dioxide 10 mmol/L
--- NOTE | 2017-09-22 17:15 | NURSING ---
in ICU 3 per bed from PCU on monitor, FRAME SAMPLE AND PATTERN SUPERVISOR in attendance. Dr. Castañeda at bedside
[2017-09-22 17:24] LABS: International Normalized Ratio 1.4; Partial Thromboplast Time 33.7 Seconds (24.1-36.2)
--- NOTE | 2017-09-22 17:35 | NURSING ---
Dr Castañeda preparing insert dialysis cath 1740 HR 109, R 42, SpO2 98% 3lnc, BP 139/103
[2017-09-22] MEDS: Midazolam 2 MG/2 ML Syringe 1 MG IV (17:45)
--- NOTE | 2017-09-22 17:46 | NURSING ---
1750 Versed 1mg iv slow push given HR 108, R 42, SpO2 98% 3lnc, BP 194/94 procedure begin 1755 HR 108 R 42 sat 99 BP 225/81 1800 HR 109 R 30 sat 100 BP 198/78 1805 HR 109 R 35 sat 99 BP 156/73 1810 HR 110 R 28 sat 98 BP 181/48 1815 HR 107 R 40 sat 99 BP 205/164 1820 annetta mcbride RIJ. 1.3 ml heparin [id number] each line
[2017-09-22 18:09] LABS: Anion Gap 13 (5-15); BUN 40 mg/dL (7-18); BUN/Creat Ratio 7.5 RATIO (10-20); Chloride 106 mmol/L (98-107); Creatinine, Serum 5.34 mg/dL (0.55-1.02); Glucose 136 mg/dL (74-106); Potassium 4.7 mmol/L (3.5-5.1); Sodium Level 134 mmol/L (136-145)
--- NOTE | 2017-09-22 18:36 | SUR.OPER ---
Dialysis catheter placement note 16 cm 2 lumen dialysis catheter sterile precautions under USG guidance RIJ vein visualized site cleaned with chrolprep lidocaine 2 % local anesthesia premedication with 1 mg versed no of attempts 2 guidewire visualized inside IJ serial dilators used, dialysis catheter over guidewire good venous return from both ports stat CXR ordered no apparent complications immediately
--- NOTE | 2017-09-22 18:50 | RAD_ITS ---
STUDY: X-RAY CHEST REASON FOR EXAM: Female, 22 years old. Line placement TECHNIQUE: Frontal view of the chest COMPARISON: 09/22/2017 at 1:11 PM FINDINGS: There is a right-sided jugular line with its tip in the superior vena cava. There is no pneumothorax. Again noted are low lung volumes. The lungs are grossly clear. The heart is normal in size. The visualized osseous structures are within normal limits. RAD/CXR for Line Placement IMPRESSION: Satisfactory position of the right-sided central line. No pneumothorax. Low lung volumes. Grossly clear lungs. Electronically Signed: Trung Dickerson, at 19:09 EDT Tel , Service support ,
--- NOTE | 2017-09-22 19:56 | NURSING ---
clinical education consultant present in pt, set up begun
[2017-09-22] MEDS: 0.9% Normal Saline 1,000 ML 125 ML IV (19:59)
[2017-09-22] MEDS: Heparin 10,000 UNITS/10 ML Vial 10000 UNITS IV (20:15)
--- NOTE | 2017-09-22 20:45 | DIALYSIS ---
HD access: right ij Reji, inserted by Dr. Castañeda, CXR verified position. connections secure, hemosafe applied x 2. Hepatitis labs ordered. To be drawn by primary RN after HD.
[2017-09-22 22:32] LABS: M R Staph aureus DNA By PCR Negative (Negative); Probe Check PASS; Specimen Processing Control PASS
[2017-09-22] MEDS: HYDROmorphone PCA 0.2 MG/ML 100 ML BAG 20 MG IV (22:42)
--- NOTE | 2017-09-22 23:10 | NURSING ---
Patient blood pressures fluctuating from very high to very low per monitor. Manual BP taken on left arm and found to be 132/52, Dialysis being completed at this time. Patient drowsy and WELDING SETTER pump taken from patient due to increasing drowsiness and pain levels at 0/1 out of 10. Jenn King RN
--- NOTE | 2017-09-22 23:55 | DIALYSIS ---
Hemodialysis treatment complete, blood returned, patient tolerated HD tx well. 3hour run 2k/3.5Ca bath. Net fluid balance = 0. No fluid removed. Right IJ Mahurkar, site benign, dressing dry and intact, lumen flushed with NS, filled to volume with Heparin, capped and clamped. Report given to primary RN:
[2017-09-23] VITALS (33 sets, daily range): BP systolic 96–150; BP diastolic 50–105; PULSE 81–108; RESP 17–44; TEMP 36.2–37.7; O2SAT 92–99
[2017-09-23 00:01] LABS: Bedside Glucose 108 mg/dL (70-110)
[2017-09-23] MEDS: 0.9% NaCl Peripheral Flush Adult/Peds IV ×2 (01:09→18:14)
[2017-09-23] MEDS: Heparin 10,000 UNITS/10 ML Vial 1000 UNITS IV (01:09)
[2017-09-23 01:37] LABS: Calcium,Total 6.8 mg/dL (8.5-10.1)
[2017-09-23] MEDS: CHLORHEXIDINE GLUC 2% CLOTH 1 EACH TOWELETTE TOPICAL (03:15)
[2017-09-23] MEDS: 0.9% Normal Saline 1,000 ML 125 ML IV ×2 (03:15→20:48)
--- NOTE | 2017-09-23 04:16 | CON.PCM_ITS ---
Reason for Consult Date of Consultation: 09/23/17 Reason for Consultation: Severe sepsis/acute kidney injury/severe pancreatitis History of Present Illness: The patient is a 22-year-old female, with a history as outlined below, who initially presented to the emergency department on September 20 with abdominal pain, nausea and vomiting. The patient is currently 9 weeks . The patient denied a history of alcohol abuse. She was started on a transdermal contraceptive patch approximately 3 weeks ago. On presentation to the emergency department on September 20, the patient was noted to be afebrile and hemodynamically stable. Initial laboratory evaluation revealed elevated white blood cell count to 13,000. Chemistry profile was within normal limits. Hepatic function profile was also within normal limits. Lipase was elevated to 765. Urinalysis was not concerning for infection. Subsequent CT abdomen/pelvis revealed acute interstitial pancreatitis with areas of necrosis. The patient received supplemental IV fluid hydration and was started on Zosyn. The patient was seen in consultation by general surgery. To date, the etiology for the patient's recurrent pancreatitis remains unclear. The patient was admitted in July 2016 under similar circumstances and underwent an MRCP that showed normal pancreatic duct. The patient's hospital course has been complicated by worsening pain, tachypnea, progressive renal insufficiency leading to dialysis and worsening systemic inflammation in the setting of severe necrotizing pancreatitis. Due to the patient's tenuous clinical state, on September 22, the patient was transferred to the medical intensive care unit for ongoing management. The patient was seen in consultation by nephrology who felt that the patient's acute kidney injury was most likely a consequence of ATN that developed as a consequence of her severe pancreatitis and previous contrast exposure. A temporary hemodialysis catheter was placed and the patient underwent her first dialysis session on September 22. Past Medical History Past Medical History (Chronic Problems): Chronic Problems (Last Reviewed 07/25/17 @ 14:54 by Sydni Chen) Depression (Chronic) zoloft Type 2 diabetes mellitus (Chronic) Migraine headache (Chronic) Hyperlipidemia (Chronic) Medical History: Medical History (Last Reviewed 07/25/17 @ 14:54 by Sydni Chen) Depression (Chronic) F32.9 zoloft Type 2 diabetes mellitus (Chronic) E11.9 Migraine headache (Chronic) G43.909 Hyperlipidemia (Chronic) E78.5 Acute pancreatitis (Resolved) K85.90 Allergies No Known Allergies Allergy (Verified 09/20/17 03:46) Home Medications: Ambulatory Orders Medication Instructions Recorded Sertraline HCl [Zoloft] 100 mg PO QHS 07/02/17 Labetalol [Trandate (Beta Jaja)] 100 mg PO BID 07/12/17 Metformin HCl [Glucophage] 500 mg PO BIDCM #60 tab 07/13/17 Surgical History: Surgical History (Last Reviewed 07/25/17 @ 14:54 by Sydni Chen) carpal tunnel Surgical History: no surgical history Lives: Spouse/ Significant Other, With Family Smoking Status: Never smoker Tobacco Use: Non-smoker Alcohol: None Drugs: None - *Family History Maternal Family History: Family History (Last Reviewed 09/20/17 @ 06:50 by Debbie Ann DO) Mother Diabetes Grandmother Diabetes Grandfather Diabetes Father hyperlipidemia History Items: Diabetes Paternal Family History: Family History (Last Reviewed 09/20/17 @ 06:50 by Debbie Ann DO) Mother Diabetes Grandmother Diabetes Grandfather Diabetes Father hyperlipidemia History Items: Diabetes Review of Systems Constitutional: Reports: Weakness, Fatigue Eyes: Denies: Blurred vision, Double vision HEENT: Denies: Head Aches, Sinus Congestion, Sinus Drainage Cardiovascular: Denies: Chest Pain, Palpitations Respiratory: Reports: Shortness of Breath. Denies: Cough, Sputum production Gastrointestinal: Reports: Abdominal Pain, Nausea, Vomiting Genitourinary: Denies: Dysuria Musculoskeletal: Denies: Joint Pain, Joint Tenderness Skin: Denies: Rash, Wounds Neurological: Denies: Numbness, Tingling, Focal weakness Psychiatric: Denies: Anxiety, Depression, Homicidal Ideations, Suicidal Ideations Hematologic/ Lymphatic: Denies: Easy Bruising, Easy Bleeding Patient Problems: Active and Suspected Problems (Last Reviewed 07/25/17 @ 14:54 by Sydni Chen) Recurrent acute pancreatitis (Acute) KIM (acute kidney injury) (Acute) Objective: The patient's most recent lab work, culture data and imaging studies have all been personally reviewed. Blood cultures are pending. - Physical Exam General: Alert, Cooperative, - - A bit somnolent, given NUT ORCHARDIST use. HEENT: Atraumatic, PERRLA, Normocephalic Oral: Dry Mucosa Neck: Supple, No Nodes, Trachea Midline, - - Temporary hemodialysis catheter in place. Lungs: - - Clear across anterior lung angulo with poor, patient dependent inspiratory effort. Cardiovascular: Normal S1, Normal S2, No murmurs, No rub noted, No Gallop, Tachycardic Abdomen: Soft, Hypoactive Bowel Sounds, - - Protuberant abdomen with diffuse tenderness to palpation. Extremities: No clubbing, No cyanosis, - - Trace lower extremity edema Skin: No breakdown Musculoskeletal: No Tenderness to Palpation of Joints or Extremities Lymphatic: No Cervical, Supraclavicular, or Inguinal Adenopathy Neurological: Neuro grossly intact Psych/Mental Status: Flat Affect Vital Signs Temp Pulse Resp BP Pulse Ox 99.8 F H 108 H 37 H 131/84 H 95 09/23/17 04:00 09/23/17 04:00 09/23/17 04:00 09/23/17 04:00 09/23/17 04:00 Oxygen Flow Rate (L/min) 2 Oxygen Delivery Method Nasal Cannula Weight: 231 lb 4.803 oz Body Mass Index (BMI) 40.9 Intake and Output for Last 24 Hours 09/21/17 09/22/17 09/23/17 23:59 23:59 23:59 Intake Total 9190.6 / 9190.6 4886 / 4886 779 / 779 Output Total 350 / 350 140 / 140 55 / 55 Balance 8840.6 / 8840.6 4746 / 4746 724 / 724 Laboratory Tests Past 24 Hrs 09/21/17 09/22/17 09/22/17 05:45 07:20 07:20 WBC 9.8 RBC 4.92 Hgb 12.8 Hct 39.5 MCV 80.3 L MCH 26.0 L MCHC 32.4 RDW 17.2 H RDW Differential 50.2 H Plt Count 309 MPV 10.6 PT INR APTT Specimen Type Sample Site pH Bicarbonate Actual POC Total CO2 Base Excess O2 Saturation ABG pCO2 ABG pO2 Tho Test O2 Delivery Device Liter Flow Blood Gas Notified Whom Blood Gas Notified Time Sodium 137 Potassium 4.6 Chloride 109 H Carbon Dioxide 12.0 L Anion Gap 16 H BUN 33 H Creatinine 4.71 H Estim Creat Clear Calc 15.50 Est GFR (MDRD) Af Amer 15 L Est GFR (MDRD) Non-Af 12 L BUN/Creatinine Ratio 7.0 L Glucose 148 H Lactic Acid Calcium < 5.0 L* < 5.0 L* Ionized Calcium Magnesium 2.2 Total Bilirubin 1.00 AST 188 H ALT 63 H Alkaline Phosphatase 52 Total Protein 6.1 L Albumin 1.7 L Globulin 4.4 H Albumin/Globulin Ratio 0.4 L Lipase 3124 H U Random Total Protein Ur Random Sodium Urine Creatinine Protein/Creatinin Ratio Hep Bs Antigen Hep Bs Antibody Hep B Core Total Ab MRSA (PCR) 09/22/17 09/22/17 09/22/17 07:20 07:20 14:05 WBC RBC Hgb Hct MCV MCH MCHC RDW RDW Differential Plt Count MPV PT INR APTT Specimen Type Sample Site pH Bicarbonate Actual POC Total CO2 Base Excess O2 Saturation ABG pCO2 ABG pO2 Tho Test O2 Delivery Device Liter Flow Blood Gas Notified Whom Blood Gas Notified Time Sodium Potassium Chloride Carbon Dioxide Anion Gap BUN Creatinine Estim Creat Clear Calc Est GFR (MDRD) Af Amer Est GFR (MDRD) Non-Af BUN/Creatinine Ratio Glucose Lactic Acid Cancelled Calcium 5.3 L* Ionized Calcium Magnesium Cancelled Total Bilirubin AST ALT Alkaline Phosphatase Total Protein Albumin Globulin Albumin/Globulin Ratio Lipase U Random Total Protein Ur Random Sodium Urine Creatinine Protein/Creatinin Ratio Hep Bs Antigen Hep Bs Antibody Hep B Core Total Ab MRSA (PCR) 09/22/17 09/22/17 09/22/17 14:55 14:55 15:55 WBC RBC Hgb Hct MCV MCH MCHC RDW RDW Differential Plt Count MPV PT INR APTT Specimen Type ART Sample Site R Radial pH 7.30 L Bicarbonate Actual 9.3 L POC Total CO2 10 Base Excess -17 L O2 Saturation 95 ABG pCO2 19.0 L ABG pO2 79 Tho Test POS O2 Delivery Device Nasal Can Liter Flow 3.0 Blood Gas Notified Whom [facility] Blood Gas Notified Time 1600 Sodium Potassium Chloride Carbon Dioxide Anion Gap BUN Creatinine Estim Creat Clear Calc Est GFR (MDRD) Af Amer Est GFR (MDRD) Non-Af BUN/Creatinine Ratio Glucose Lactic Acid Calcium Ionized Calcium Magnesium Total Bilirubin AST ALT Alkaline Phosphatase Total Protein Albumin Globulin Albumin/Globulin Ratio Lipase U Random Total Protein 233.2 H Ur Random Sodium 39 Urine Creatinine 251.00 261.00 Protein/Creatinin Ratio 929 H Hep Bs Antigen Hep Bs Antibody Hep B Core Total Ab MRSA (PCR) 09/22/17 09/22/17 09/22/17 17:00 17:30 17:45 WBC RBC Hgb Hct MCV MCH MCHC RDW RDW Differential Plt Count MPV PT 17.0 H INR 1.4 APTT 33.7 Specimen Type Sample Site pH Bicarbonate Actual POC Total CO2 Base Excess O2 Saturation ABG pCO2 ABG pO2 Tho Test O2 Delivery Device Liter Flow Blood Gas Notified Whom Blood Gas Notified Time Sodium 134 L Potassium 4.7 Chloride 106 Carbon Dioxide 15.0 L Anion Gap 13 BUN 40 H Creatinine 5.34 H Estim Creat Clear Calc Est GFR (MDRD) Af Amer Est GFR (MDRD) Non-Af BUN/Creatinine Ratio 7.5 L Glucose 136 H Lactic Acid Calcium Ionized Calcium Pending Magnesium Total Bilirubin AST ALT Alkaline Phosphatase Total Protein Albumin Globulin Albumin/Globulin Ratio Lipase U Random Total Protein Ur Random Sodium Urine Creatinine Protein/Creatinin Ratio Hep Bs Antigen Hep Bs Antibody Hep B Core Total Ab MRSA (PCR) 09/22/17 09/23/17 09/23/17 21:00 01:20 01:20 WBC RBC Hgb Hct MCV MCH MCHC RDW RDW Differential Plt Count MPV PT INR APTT Specimen Type Sample Site pH Bicarbonate Actual POC Total CO2 Base Excess O2 Saturation ABG pCO2 ABG pO2 Tho Test O2 Delivery Device Liter Flow Blood Gas Notified Whom Blood Gas Notified Time Sodium Potassium Chloride Carbon Dioxide Anion Gap BUN Creatinine Estim Creat Clear Calc Est GFR (MDRD) Af Amer Est GFR (MDRD) Non-Af BUN/Creatinine Ratio Glucose Lactic Acid Calcium 6.8 L Ionized Calcium Magnesium Total Bilirubin AST ALT Alkaline Phosphatase Total Protein Albumin Globulin Albumin/Globulin Ratio Lipase U Random Total Protein Ur Random Sodium Urine Creatinine Protein/Creatinin Ratio Hep Bs Antigen Pending Hep Bs Antibody Pending Hep B Core Total Ab Pending MRSA (PCR) Negative POC Glucose 09/22/17 09/22/17 09/22/17 23:54 11:43 06:20 POC Glucose 108 144 H 126 H Clinical Impression(s) from Imaging Studies Abdomen/Pelvis CT 09/20/17 04:[address] 09/21/17 04:58 IMPRESSION: Acute pancreatitis with diffuse peripancreatic and perinephric infiltration in keeping with progression of the acute pancreatitis. Increased density seen within the gallbladder lumen. Bibasilar atelectasis and/or infiltrate. Electronically Signed: Popeye Nichols MD at 9:01 EDT Tel [phone], Service support , Chest X-Ray 09/21/17 16:15 IMPRESSION: Very poor inspiration. No acute cardiopulmonary disease process is seen. Electronically Signed: Milan Damon MD at 16:40 EDT , Service support , Chest X-Ray 09/22/17 13:00 IMPRESSION: Limited by technique with low lung volume and interstitial crowding. No evidence of focal consolidation. Electronically Signed: Channing Mcmullen DO at 13:55 EDT , Service support , Chest X-Ray 09/22/17 18:50 IMPRESSION: Satisfactory position of the right-sided central line. No pneumothorax. Low lung volumes. Grossly clear lungs. Electronically Signed: Trung Dickerson, at 19:09 EDT Tel , Service support , Assessment/Plan Active and Suspected Problems (Last Reviewed 07/25/17 @ 14:54 by Sydni Chen) Recurrent acute pancreatitis (Acute) KIM (acute kidney injury) (Acute) RECOMMENDATIONS: 1. Mobilize patient to bedside recliner and encourage aggressive incentive spirometer use 2. Continue current pain control regimen 3. Continue fluids and aggressive electrolyte repletion 4. Advance diet per surgery recommendations. 5. Place SCDs for DVT prophylaxis. Physical therapy to evaluate patient. IMPRESSIONS: 1. Severe sepsis secondary to severe necrotizing pancreatitis of unclear etiology The patient appears to be slowly improving clinically with conservative management including n.p.o. status and supplemental IV fluid hydration. The patient's diet can be advanced per surgery recommendations, once the patient has mobilized and has been encouraged to utilize an incentive spirometer. The etiology for the patient's recurrent pancreatitis remains unclear at this time. Continue NUT ORCHARDIST pain control regimen. Continue aggressive electrolyte repletion. 2. Acute kidney injury Likely secondary to ATN in the setting of severe sepsis and chronic pancreatitis with subsequent third spacing. The patient did undergo temporary hemodialysis catheter placement on September 22 and underwent a hemodialysis session. Will continue to monitor urine output accordingly. Await additional recommendations from nephrology perspective. Continue supplemental IV fluid hydration. 3. Non-gap metabolic acidosis/hypocalcemia Secondary to numbers 1 and 2. Plan to continue supplemental IV fluid hydration and aggressive electrolyte repletion. 4. Ileus Likely related to #1. Anticipate improvement with resolution of the patient's underlying pancreatitis. 5. Baseline diabetes/hypertension/depression/obesity Complicates care, management, recovery and prognosis. Continue home medications as indicated. Metformin is on hold. Continue sliding scale insulin coverage. Physical therapy to evaluate patient today. This note was generated with [employer] dictation software. It may contain incorrect words, spelling, and punctuation that were not noted in checking the note before signing. Code Visit Inpatient E&M: 92006 Init Hosp L3
[2017-09-23 05:37] LABS: Hematocrit 32.7 % (37-47); Hemoglobin 10.6 g/dl (12.0-15.0); Mean Corp Hgb Conc 32.4 g/gl (32-36); Mean Corpuscular Hgb 25.8 pg (27.0-32.0); Mean Corpuscular Volume 79.6 fL (81-99); Mean Platelet Vol. 10.1 fl (6.2-12.0); Platelet Count 209 K/mm3 (150-450); RBC Distribution Width CV 16.5 % (11.6-14.6); Red Blood Count 4.11 M/mm3 (4.2-5.4); Scan Indicated on CBC? Y/N NO; White Blood Count 7.9 K/mm3 (4.4-11.0)
[2017-09-23 05:41] LABS: Bedside Glucose 138 mg/dL (70-110)
[2017-09-23 06:02] LABS: Anion Gap 15 (5-15); BUN 32 mg/dL (7-18); BUN/Creat Ratio 7.2 RATIO (10-20); Calcium,Total 6.1 mg/dL (8.5-10.1); Chloride 101 mmol/L (98-107); Creatinine, Serum 4.42 mg/dL (0.55-1.02); EST Glomerular Filtration Rate 13 mL/min (>60); Est Glom Filt Rate - Afr Amer 16 mL/min (>60); Estimated Creatinine Clearance 16.51 ml/min; Glucose 140 mg/dL (74-106); Lipase 1359 U/L (73-393); Potassium 4.1 mmol/L (3.5-5.1); Sodium Level 138 mmol/L (136-145)
--- NOTE | 2017-09-23 06:12 | PCM.PROGNOTE ---
Patient Problems: Active and Suspected Problems (Last Reviewed 07/25/17 @ 14:54 by Sydni Chen) Recurrent acute pancreatitis (Acute) KIM (acute kidney injury) (Acute) Subjective: KIM secondary to severe pancreatitis and possible IV contrast from admission CT Pt transferred to ICU last night, nephrology consulted, right IJ percutaneous cath placed and dialysis performed Pt states abd pain at 6 No flatus but also no nausea Not complaining of feeling of respiratory fatigue - Physical Exam General: Alert, Oriented x3, Cooperative, No apparent distress Lungs: - - clear apices but very shallow resp effort Abdomen: Bowel Sounds Not Present, Distended, Tender - large, rounded, diffusely tender Extremities: - - non pitting edema in legs, calves nontender, no SCDs Vital Signs Temp Pulse Resp BP Pulse Ox 99.8 F H 102 H 37 H 132/77 H 95 09/23/17 05:00 09/23/17 05:00 09/23/17 05:00 09/23/17 05:00 09/23/17 05:00 Oxygen Flow Rate (L/min) 2 Oxygen Delivery Method Nasal Cannula Weight: 262 lb 9.129 oz Body Mass Index (BMI) 40.9 Intake and Output for Last 24 Hours 09/21/17 09/22/17 09/23/17 23:59 23:59 23:59 Intake Total 9190.6 / 9190.6 4886 / 4886 1642 / 1642 Output Total 350 / 350 140 / 140 67 / 67 Balance 8840.6 / 8840.6 4746 / 4746 1575 / 1575 Laboratory Tests Past 24 Hrs 09/21/17 09/22/17 09/22/17 05:45 07:20 07:20 WBC 9.8 RBC 4.92 Hgb 12.8 Hct 39.5 MCV 80.3 L MCH 26.0 L MCHC 32.4 RDW 17.2 H RDW Differential 50.2 H Plt Count 309 MPV 10.6 PT INR APTT Specimen Type Sample Site pH Bicarbonate Actual POC Total CO2 Base Excess O2 Saturation ABG pCO2 ABG pO2 Tho Test O2 Delivery Device Liter Flow Blood Gas Notified Whom Blood Gas Notified Time Sodium 137 Potassium 4.6 Chloride 109 H Carbon Dioxide 12.0 L Anion Gap 16 H BUN 33 H Creatinine 4.71 H Estim Creat Clear Calc 15.50 Est GFR (MDRD) Af Amer 15 L Est GFR (MDRD) Non-Af 12 L BUN/Creatinine Ratio 7.0 L Glucose 148 H Lactic Acid Calcium < 5.0 L* < 5.0 L* Ionized Calcium Magnesium 2.2 Total Bilirubin 1.00 AST 188 H ALT 63 H Alkaline Phosphatase 52 Total Protein 6.1 L Albumin 1.7 L Globulin 4.4 H Albumin/Globulin Ratio 0.4 L Lipase 3124 H U Random Total Protein Ur Random Sodium Urine Creatinine Protein/Creatinin Ratio Hep Bs Antigen Hep Bs Antibody Hep B Core Total Ab MRSA (PCR) 09/22/17 09/22/17 09/22/17 07:20 07:20 14:05 WBC RBC Hgb Hct MCV MCH MCHC RDW RDW Differential Plt Count MPV PT INR APTT Specimen Type Sample Site pH Bicarbonate Actual POC Total CO2 Base Excess O2 Saturation ABG pCO2 ABG pO2 Tho Test O2 Delivery Device Liter Flow Blood Gas Notified Whom Blood Gas Notified Time Sodium Potassium Chloride Carbon Dioxide Anion Gap BUN Creatinine Estim Creat Clear Calc Est GFR (MDRD) Af Amer Est GFR (MDRD) Non-Af BUN/Creatinine Ratio Glucose Lactic Acid Cancelled Calcium 5.3 L* Ionized Calcium Magnesium Cancelled Total Bilirubin AST ALT Alkaline Phosphatase Total Protein Albumin Globulin Albumin/Globulin Ratio Lipase U Random Total Protein Ur Random Sodium Urine Creatinine Protein/Creatinin Ratio Hep Bs Antigen Hep Bs Antibody Hep B Core Total Ab MRSA (PCR) 09/22/17 09/22/17 09/22/17 14:55 14:55 15:55 WBC RBC Hgb Hct MCV MCH MCHC RDW RDW Differential Plt Count MPV PT INR APTT Specimen Type ART Sample Site R Radial pH 7.30 L Bicarbonate Actual 9.3 L POC Total CO2 10 Base Excess -17 L O2 Saturation 95 ABG pCO2 19.0 L ABG pO2 79 Tho Test POS O2 Delivery Device Nasal Can Liter Flow 3.0 Blood Gas Notified Whom [facility] Blood Gas Notified Time 1600 Sodium Potassium Chloride Carbon Dioxide Anion Gap BUN Creatinine Estim Creat Clear Calc Est GFR (MDRD) Af Amer Est GFR (MDRD) Non-Af BUN/Creatinine Ratio Glucose Lactic Acid Calcium Ionized Calcium Magnesium Total Bilirubin AST ALT Alkaline Phosphatase Total Protein Albumin Globulin Albumin/Globulin Ratio Lipase U Random Total Protein 233.2 H Ur Random Sodium 39 Urine Creatinine 251.00 261.00 Protein/Creatinin Ratio 929 H Hep Bs Antigen Hep Bs Antibody Hep B Core Total Ab MRSA (PCR) 09/22/17 09/22/17 09/22/17 17:00 17:30 17:45 WBC RBC Hgb Hct MCV MCH MCHC RDW RDW Differential Plt Count MPV PT 17.0 H INR 1.4 APTT 33.7 Specimen Type Sample Site pH Bicarbonate Actual POC Total CO2 Base Excess O2 Saturation ABG pCO2 ABG pO2 Tho Test O2 Delivery Device Liter Flow Blood Gas Notified Whom Blood Gas Notified Time Sodium 134 L Potassium 4.7 Chloride 106 Carbon Dioxide 15.0 L Anion Gap 13 BUN 40 H Creatinine 5.34 H Estim Creat Clear Calc Est GFR (MDRD) Af Amer Est GFR (MDRD) Non-Af BUN/Creatinine Ratio 7.5 L Glucose 136 H Lactic Acid Calcium Ionized Calcium Pending Magnesium Total Bilirubin AST ALT Alkaline Phosphatase Total Protein Albumin Globulin Albumin/Globulin Ratio Lipase U Random Total Protein Ur Random Sodium Urine Creatinine Protein/Creatinin Ratio Hep Bs Antigen Hep Bs Antibody Hep B Core Total Ab MRSA (PCR) 09/22/17 09/23/17 09/23/17 21:00 01:20 01:20 WBC RBC Hgb Hct MCV MCH MCHC RDW RDW Differential Plt Count MPV PT INR APTT Specimen Type Sample Site pH Bicarbonate Actual POC Total CO2 Base Excess O2 Saturation ABG pCO2 ABG pO2 Tho Test O2 Delivery Device Liter Flow Blood Gas Notified Whom Blood Gas Notified Time Sodium Potassium Chloride Carbon Dioxide Anion Gap BUN Creatinine Estim Creat Clear Calc Est GFR (MDRD) Af Amer Est GFR (MDRD) Non-Af BUN/Creatinine Ratio Glucose Lactic Acid Calcium 6.8 L Ionized Calcium Magnesium Total Bilirubin AST ALT Alkaline Phosphatase Total Protein Albumin Globulin Albumin/Globulin Ratio Lipase U Random Total Protein Ur Random Sodium Urine Creatinine Protein/Creatinin Ratio Hep Bs Antigen Pending Hep Bs Antibody Pending Hep B Core Total Ab Pending MRSA (PCR) Negative 09/23/17 09/23/17 05:30 05:30 WBC 7.9 RBC 4.11 L Hgb 10.6 L Hct 32.7 L MCV 79.6 L MCH 25.8 L MCHC 32.4 RDW 16.5 H RDW Differential 48.0 H Plt Count 209 MPV 10.1 PT INR APTT Specimen Type Sample Site pH Bicarbonate Actual POC Total CO2 Base Excess O2 Saturation ABG pCO2 ABG pO2 Tho Test O2 Delivery Device Liter Flow Blood Gas Notified Whom Blood Gas Notified Time Sodium 138 Potassium 4.1 Chloride 101 Carbon Dioxide 22.0 Anion Gap 15 BUN 32 H Creatinine 4.42 H Estim Creat Clear Calc 16.51 Est GFR (MDRD) Af Amer 16 L Est GFR (MDRD) Non-Af 13 L BUN/Creatinine Ratio 7.2 L Glucose 140 H Lactic Acid Calcium 6.1 L* Ionized Calcium Magnesium Total Bilirubin AST ALT Alkaline Phosphatase Total Protein Albumin Globulin Albumin/Globulin Ratio Lipase 1359 H U Random Total Protein Ur Random Sodium Urine Creatinine Protein/Creatinin Ratio Hep Bs Antigen Hep Bs Antibody Hep B Core Total Ab MRSA (PCR) POC Glucose 09/23/17 09/22/17 09/22/17 05:21 23:54 11:43 POC Glucose 138 H 108 144 H 09/22/17 06:20 POC Glucose 126 H Medical Necessity - Tobacco Use Smoking Status: Never smoker Tobacco Use: Non-smoker Assessment/Plan All Active Problems (Last Reviewed 07/25/17 @ 14:54 by Sydni Chen) Severe preeclampsia (Acute) Recurrent acute pancreatitis (Acute) KIM (acute kidney injury) (Acute) Hypertension complicating in third trimester (Acute) High-risk in third trimester (Acute) Diabetes in (Acute) History of pre-eclampsia (Acute) Acute pancreatitis (Resolved) Hypertension affecting in second trimester (Resolved) Supervision of high risk in second trimester (Resolved) Hgb 14 on admission to 10.6 currently. BUN 32, Creat 4.42. Ca 6.1 with ionized calcium 1359. Glu 138 Drop in Hgb in part due to hemodilution but component of retroperitoneal hemorrhage into pancreatic necrosis to some degree also likely Pt appears improved from yesterday, but oliguric Severe ileus secondary to pancreatitis with notable gastric distention on yesterdays AXR Mobilization to assist with ileus and assist with pulmonary recruitment recommended. SCDs as DVT prophylaxis, pt still at risk for retroperitoneal bleeding, would hold on chemical prophylaxis till possibly tomorrow pending pt progress Nutrition will become an issue. If pt is able to be gotten fully upright then may offer minimal sips clears to assess for tolerance. This is simply to assist with pt comfort for now. If her ileus remains then she may require TPN but she is still in the process of metabolic resuscitation at this time. Normal WBC and concur with no antibiotics. Fever improved. No additional imaging of the pancreas needed at this time.
[2017-09-23] MEDS: Labetalol 100 MG Tablet PO ×2 (09:56→23:17)
[2017-09-23] MEDS: Fenofibrate 145 MG Tablet PO (09:57)
--- NOTE | 2017-09-23 10:05 | CM.UR ---
Participated in interdisciplinary rounds this am. Patient had dialysis catheter placed yesterday and had dialysis yesterday. No dialysis planned for today. After rounds met face to face with patient again. She did not remember meeting with me yesterday. Went over again what she had told me yesterday and she agreed that it was correct. Denied any additional needs at this time. Explained case management will continue to follow/be available should any discharge needs arise. Verb understanding. Higinio Jara RN, CCM.
[2017-09-23] MEDS: Sertraline 100 MG Tablet PO (10:45)
[2017-09-23] MEDS: Insulin Lispro 100 UNIT/ML INSULN.PEN SC (12:04)
[2017-09-23 12:05] LABS: Bedside Glucose 159 mg/dL (70-110)
--- NOTE | 2017-09-23 13:22 | PN_ITS ---
Patient Problems: Active and Suspected Problems (Last Reviewed 07/25/17 @ 14:54 by Sydni Chen) Recurrent acute pancreatitis (Acute) KIM (acute kidney injury) (Acute) Subjective: Patient seen and examined today, she does not appear to have rapid respirations today, creatinine has decreased to 4.42. Patient's hemoglobin is 10.6, this dropped from admission may be a result of hemodilution from fluids and/or hemorrhage into the pancreas. Overall, patient appears more comfortable and yesterday. I have encouraged her to get up and walk today in the ICU. I talked briefly with general surgery about her care today - Physical Exam General: Alert, Oriented x3, Cooperative, No apparent distress, Well developed, Well nourished HEENT: Atraumatic, PERRLA, EOMI, Normocephalic Oral: Moist Mucosa Neck: Supple, No JVD, No Nuchal Rigidity, Trachea Midline, Thyroid Normal Size and Texture Lungs: Clear to auscultation, Normal air movement, No rhonchi, No wheeze Cardiovascular: Regular rate, Regular Rhythm, Normal S1, Normal S2, No murmurs, No Ectopic Activity, PMI Normal, No rub noted, No Gallop Abdomen: Bowel Sounds Present, Soft, Hypoactive Bowel Sounds, Tender - Mild diffuse abdominal tenderness is noted to palpation Extremities: No clubbing, No cyanosis, Capillary Refill Less than 3 Seconds Skin: No rashes, No breakdown Musculoskeletal: No Tenderness to Palpation of Joints or Extremities Neurological: Cranial nerves II-XII grossly intact, Neuro grossly intact, Sensory exam intact to light touch and pain, Coordination normal Psych/Mental Status: Normal Affect, Appropriate, Alert and oriented to time, place, person, mood and affect Vital Signs Temp Pulse Resp BP Pulse Ox 97.6 F L 90 29 H 131/68 H 95 09/23/17 12:00 09/23/17 12:00 09/23/17 12:00 09/23/17 12:09/23/17 12:00 Oxygen Flow Rate (L/min) 2 Oxygen Delivery Method Nasal Cannula Weight: 119.1 kg Body Mass Index (BMI) 40.9 Intake and Output for Last 24 Hours 09/21/17 09/22/17 09/23/17 23:59 23:59 23:59 Intake Total 9190.6 / 9190.6 4886 / 4886 2645 / 2645 Output Total 350 / 350 140 / 140 92 / 92 Balance 8840.6 / 8840.6 4746 / 4746 2553 / 2553 Laboratory Tests Past 24 Hrs 09/22/17 09/22/17 09/22/17 14:05 14:55 14:55 WBC RBC Hgb Hct MCV MCH MCHC RDW RDW Differential Plt Count MPV PT INR APTT Specimen Type Sample Site pH Bicarbonate Actual POC Total CO2 Base Excess O2 Saturation ABG pCO2 ABG pO2 Tho Test O2 Delivery Device Liter Flow Blood Gas Notified Whom Blood Gas Notified Time Sodium Potassium Chloride Carbon Dioxide Anion Gap BUN Creatinine Estim Creat Clear Calc Est GFR (MDRD) Af Amer Est GFR (MDRD) Non-Af BUN/Creatinine Ratio Glucose Calcium 5.3 L* Ionized Calcium Lipase U Random Total Protein 233.2 H Ur Random Sodium 39 Urine Creatinine 251.00 261.00 Protein/Creatinin Ratio 929 H Hep Bs Antigen Hep Bs Antibody Hep B Core Total Ab MRSA (PCR) 09/22/17 09/22/17 09/22/17 15:55 17:00 17:30 WBC RBC Hgb Hct MCV MCH MCHC RDW RDW Differential Plt Count MPV PT 17.0 H INR 1.4 APTT 33.7 Specimen Type ART Sample Site R Radial pH 7.30 L Bicarbonate Actual 9.3 L POC Total CO2 10 Base Excess -17 L O2 Saturation 95 ABG pCO2 19.0 L ABG pO2 79 Tho Test POS O2 Delivery Device Nasal Can Liter Flow 3.0 Blood Gas Notified Whom [facility] Blood Gas Notified Time 1600 Sodium Potassium Chloride Carbon Dioxide Anion Gap BUN Creatinine Estim Creat Clear Calc Est GFR (MDRD) Af Amer Est GFR (MDRD) Non-Af BUN/Creatinine Ratio Glucose Calcium Ionized Calcium Pending Lipase U Random Total Protein Ur Random Sodium Urine Creatinine Protein/Creatinin Ratio Hep Bs Antigen Hep Bs Antibody Hep B Core Total Ab MRSA (PCR) 09/22/17 09/22/17 09/23/17 17:45 21:00 01:20 WBC RBC Hgb Hct MCV MCH MCHC RDW RDW Differential Plt Count MPV PT INR APTT Specimen Type Sample Site pH Bicarbonate Actual POC Total CO2 Base Excess O2 Saturation ABG pCO2 ABG pO2 Tho Test O2 Delivery Device Liter Flow Blood Gas Notified Whom Blood Gas Notified Time Sodium 134 L Potassium 4.7 Chloride 106 Carbon Dioxide 15.0 L Anion Gap 13 BUN 40 H Creatinine 5.34 H Estim Creat Clear Calc Est GFR (MDRD) Af Amer Est GFR (MDRD) Non-Af BUN/Creatinine Ratio 7.5 L Glucose 136 H Calcium Ionized Calcium Lipase U Random Total Protein Ur Random Sodium Urine Creatinine Protein/Creatinin Ratio Hep Bs Antigen Pending Hep Bs Antibody Pending Hep B Core Total Ab Pending MRSA (PCR) Negative 09/23/17 09/23/17 09/23/17 01:20 05:30 05:30 WBC 7.9 RBC 4.11 L Hgb 10.6 L Hct 32.7 L MCV 79.6 L MCH 25.8 L MCHC 32.4 RDW 16.5 H RDW Differential 48.0 H Plt Count 209 MPV 10.1 PT INR APTT Specimen Type Sample Site pH Bicarbonate Actual POC Total CO2 Base Excess O2 Saturation ABG pCO2 ABG pO2 Tho Test O2 Delivery Device Liter Flow Blood Gas Notified Whom Blood Gas Notified Time Sodium 138 Potassium 4.1 Chloride 101 Carbon Dioxide 22.0 Anion Gap 15 BUN 32 H Creatinine 4.42 H Estim Creat Clear Calc 16.51 Est GFR (MDRD) Af Amer 16 L Est GFR (MDRD) Non-Af 13 L BUN/Creatinine Ratio 7.2 L Glucose 140 H Calcium 6.8 L 6.1 L* Ionized Calcium Lipase 1359 H U Random Total Protein Ur Random Sodium Urine Creatinine Protein/Creatinin Ratio Hep Bs Antigen Hep Bs Antibody Hep B Core Total Ab MRSA (PCR) POC Glucose 09/23/17 09/23/17 09/22/17 11:59 05:21 23:54 POC Glucose 159 H 138 H 108 Medical Necessity - Tobacco Use Smoking Status: Never smoker Tobacco Use: Non-smoker Assessment/Plan All Active Problems (Last Reviewed 07/25/17 @ 14:54 by Sydni Chen) Severe preeclampsia (Acute) Recurrent acute pancreatitis (Acute) KIM (acute kidney injury) (Acute) Hypertension complicating in third trimester (Acute) High-risk in third trimester (Acute) Diabetes in (Acute) History of pre-eclampsia (Acute) Acute pancreatitis (Resolved) Hypertension affecting in second trimester (Resolved) Supervision of high risk in second trimester (Resolved) #1 recurrent pancreatitis with pancreatic necrosis-continue IV fluids, general surgery participating her care, patient still on ice chips with liquid sparingly today #2 acute kidney injury, etiology unclear, possibly due to contrast and/or pancreatitis with volume depletion-dialysis was performed yesterday, repeat labs tomorrow, nephrology is participating in her care #3 hypertension #4 depression #5 hypocalcemia-critical care wrote for replacement potassium today, labs will be rechecked #6 anemia-possibly secondary to delusional reasons on a backdrop of pancreatitis , labs will be followed Code Visit Inpatient E&M: 49045 Subs Hosp L2
--- NOTE | 2017-09-23 14:00 | NURSING ---
on hold, no IV site, pt refusing further attempts to start IV
[2017-09-23 16:32] LABS: Calcium,Total 6.3 mg/dL (8.5-10.1)
--- NOTE | 2017-09-23 17:20 | PN.RENAL_ITS ---
Patient Problems: Active and Suspected Problems (Last Reviewed 07/25/17 @ 14:54 by Sydni Chen) Recurrent acute pancreatitis (Acute) KIM (acute kidney injury) (Acute) Objective: doing better creatinine down - Physical Exam General: Alert Neck: Supple, No JVD, Negative Carotid Bruits Lungs: Rales, Short of Breath Cardiovascular: Regular rate Vital Signs Temp Pulse Resp BP Pulse Ox 97.2 F L 95 44 H 124/68 H 96 09/23/17 16:00 09/23/17 17:00 09/23/17 17:00 09/23/17 17:00 09/23/17 17:00 Oxygen Flow Rate (L/min) 2 Oxygen Delivery Method Nasal Cannula Weight: 119.1 kg Body Mass Index (BMI) 40.9 Intake and Output for Last 24 Hours 09/21/17 09/22/17 09/23/17 23:59 23:59 23:59 Intake Total 9190.6 / 9190.6 4886 / 4886 2645 / 2645 Output Total 350 / 350 140 / 140 92 / 92 Balance 8840.6 / 8840.6 4746 / 4746 2553 / 2553 Laboratory Tests Past 24 Hrs 09/22/17 09/22/17 09/22/17 17:00 17:30 17:45 WBC RBC Hgb Hct MCV MCH MCHC RDW RDW Differential Plt Count MPV PT 17.0 H INR 1.4 APTT 33.7 Sodium 134 L Potassium 4.7 Chloride 106 Carbon Dioxide 15.0 L Anion Gap 13 BUN 40 H Creatinine 5.34 H Estim Creat Clear Calc Est GFR (MDRD) Af Amer Est GFR (MDRD) Non-Af BUN/Creatinine Ratio 7.5 L Glucose 136 H Calcium Ionized Calcium Pending Lipase Hep Bs Antigen Hep Bs Antibody Hep B Core Total Ab MRSA (PCR) 09/22/17 09/23/17 09/23/17 21:00 01:20 01:20 WBC RBC Hgb Hct MCV MCH MCHC RDW RDW Differential Plt Count MPV PT INR APTT Sodium Potassium Chloride Carbon Dioxide Anion Gap BUN Creatinine Estim Creat Clear Calc Est GFR (MDRD) Af Amer Est GFR (MDRD) Non-Af BUN/Creatinine Ratio Glucose Calcium 6.8 L Ionized Calcium Lipase Hep Bs Antigen Pending Hep Bs Antibody Pending Hep B Core Total Ab Pending MRSA (PCR) Negative 09/23/17 09/23/17 09/23/17 05:30 05:30 16:10 WBC 7.9 RBC 4.11 L Hgb 10.6 L Hct 32.7 L MCV 79.6 L MCH 25.8 L MCHC 32.4 RDW 16.5 H RDW Differential 48.0 H Plt Count 209 MPV 10.1 PT INR APTT Sodium 138 Potassium 4.1 Chloride 101 Carbon Dioxide 22.0 Anion Gap 15 BUN 32 H Creatinine 4.42 H Estim Creat Clear Calc 16.51 Est GFR (MDRD) Af Amer 16 L Est GFR (MDRD) Non-Af 13 L BUN/Creatinine Ratio 7.2 L Glucose 140 H Calcium 6.1 L* 6.3 L* Ionized Calcium Lipase 1359 H Hep Bs Antigen Hep Bs Antibody Hep B Core Total Ab MRSA (PCR) POC Glucose 09/23/17 09/23/17 09/22/17 11:59 05:21 23:54 POC Glucose 159 H 138 H 108 Medical Necessity - Tobacco Use Smoking Status: Never smoker Tobacco Use: Non-smoker Assessment/Plan All Active Problems (Last Reviewed 07/25/17 @ 14:54 by Sydni Chen) Severe preeclampsia (Acute) Recurrent acute pancreatitis (Acute) KIM (acute kidney injury) (Acute) Hypertension complicating in third trimester (Acute) High-risk in third trimester (Acute) Diabetes in (Acute) History of pre-eclampsia (Acute) Acute pancreatitis (Resolved) Hypertension affecting in second trimester (Resolved) Supervision of high risk in second trimester (Resolved) KIM. normal baseline even on day of admission on 7.2017-Creatinine acutely increased to mid 3 s yesterday and above [address] abdomen does not show hydronephrosis. UA shows some RBCc but she had a taveras in place and now oliguric hence reliability is limited. She did have a contrast study on the . Most likely she had ATN likely related to combination of severe pancreatitis and contrast exposure. Unfortunately she did not respond to lasix challenge. for today K levels are ok. Bicarbonate is low, will check ABG today. She is net positive 10 L since admission. Hold off NURSING HOME ADMISSIONS DIRECTOR for now. stop ringers lactate for now. further fluid choice depending on ABG. will probably start less than what she is getting now FO lasix Acidosis. elevated gap. last lactate was normal. sugars are ok. Gap acidosis could be related to KIM. IV bicarbonate may worsen the hypocalcemia. will continue either RL or NS depending on ABG Hypocalcemia. Phos was normal yesterday. Likely related to pancreatitis. repleted this am and calcium is better. would give 2 more gm of calcium IV Even if her renal failure is bad enough to require NURSING HOME ADMISSIONS DIRECTOR, should be temporary.
[2017-09-23] MEDS: Furosemide 40 MG/4 ML Vial IV (18:11)
[2017-09-23] MEDS: Famotidine 20 MG Tablet PO (18:12)
[2017-09-23 18:51] LABS: Bedside Glucose 132 mg/dL (70-110)
--- NOTE | 2017-09-23 20:01 | NURSING ---
leasing manager in to place PICC line
--- NOTE | 2017-09-23 20:37 | NURSING ---
OK to use PICC line per base manager.
[2017-09-23] MEDS: HYDROmorphone PCA 0.2 MG/ML 100 ML BAG 20 MG IV (22:13)
--- NOTE | 2017-09-23 23:07 | NURSING ---
i/s 750ml x10
[2017-09-24] VITALS (24 sets, daily range): BP systolic 102–151; BP diastolic 52–79; PULSE 79–100; RESP 20–38; TEMP 35.6–37.5; O2SAT 88–100
[2017-09-24] MEDS: 0.9% NaCl Peripheral Flush Adult/Peds IV ×3 (00:12→22:24)
[2017-09-24 00:25] LABS: Bedside Glucose 109 mg/dL (70-110)
[2017-09-24 01:02] LABS: Calcium,Total 6.4 mg/dL (8.5-10.1)
--- NOTE | 2017-09-24 03:50 | NURSING ---
Pt up to chair for linen change, pt voices frustration with earlier staff not allowing her to get up at her pace, frustrated that they say to move around but then fair her. Support given to patient. States pain is better when up and moving around.
[2017-09-24 05:29] LABS: ALB/GLOB Ratio 0.4 RATIO (0.9-2.4); AST(SGOT) 70 U/L (15-37); Alanine Aminotransfer ALT/SGPT 34 U/L (13-56); Albumin, Serum 1.5 g/dL (3.2-5.0); Alkaline Phosphatase 55 U/L (45-117); Anion Gap 15 (5-15); BUN 51 mg/dL (7-18); BUN/Creat Ratio 8.5 RATIO (10-20); Calcium,Total 6.1 mg/dL (8.5-10.1); Chloride 103 mmol/L (98-107); EST Glomerular Filtration Rate 9 mL/min (>60); Est Glom Filt Rate - Afr Amer 11 mL/min (>60); Estimated Creatinine Clearance 12.17 ml/min; Globulin 4.1 g/dL (2.2-4.2); Glucose 122 mg/dL (74-106); Potassium 3.9 mmol/L (3.5-5.1); Protein, Total 5.6 g/dL (6.4-8.2); Sodium Level 138 mmol/L (136-145)
[2017-09-24 06:34] LABS: Absolute Lymphocyte Count 0.59 X10^3/ul (0.83-4.51); Absolute Neutrophil Count 6.4 X10^3/uL (2.0-7.7); Basophil# 0.01 X10^3/uL; Basophil% 0.1 % (0-1); Eosinophil# 0.18 X10^3/uL; Eosinophils% 2.3 % (0-5); Hematocrit 27.7 % (37-47); Lymphocyte # 0.59 X10^3/ul (4.0); Lymphocyte % 7.7 % (19-41); Mean Corp Hgb Conc 32.5 g/gl (32-36); Mean Corpuscular Hgb 26.2 pg (27.0-32.0); Mean Corpuscular Volume 80.8 fL (81-99); Monocyte# 0.47 X10^3/uL; Monocyte% 6.1 % (0-10); Neutrophil # 6.41 X10^3/uL (2.7-7.7); Neutrophil % 83.3 % (47-70); Platelet Count 202 K/mm3 (150-450); RBC Distribution Width CV 16.4 % (11.6-14.6); RBC Distribution Width SD 47.2 fl (35.1-43.9); Red Blood Count 3.43 M/mm3 (4.2-5.4); White Blood Count 7.7 K/mm3 (4.4-11.0)
--- NOTE | 2017-09-24 06:58 | PN_ITS ---
Subjective: Patient did well overnight. 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 Patient was able to go for a walk this morning and has been weaned to room air. Patient did receive hemodialysis on Sunday, but no hemodialysis was reported yesterday. Patient is asking for p.o. intake. Patient is currently menstruating. General: Alert, Oriented x3, Cooperative, No apparent distress, - - Morbidly obese. Speaking in full sentences. HEENT: Atraumatic, PERRLA, EOMI, Normocephalic, - - No scleral icterus or injection noted. Oral: No Gingival or Mucosal Lesions/ Ulcerations, Dry Mucosa, - - Good dentition Neck: Supple, No JVD, No Nodes, Trachea Midline Lungs: No rhonchi, No wheeze, No rales, Diminished, - - Fair effort with inhalation. Cardiovascular: Regular rate, Regular Rhythm, Normal S1, Normal S2, No murmurs, No rub noted, No Gallop Abdomen: Soft, Hypoactive Bowel Sounds, Distended, Obese, Tender Extremities: No clubbing, No cyanosis, Capillary Refill Less than 3 Seconds, Edema - Lower extremity 1+ Skin: No rashes, No breakdown Musculoskeletal: No Tenderness to Palpation of Joints or Extremities, No Muscle Wasting Lymphatic: No Cervical, Supraclavicular, or Inguinal Adenopathy Neurological: Cranial nerves II-XII grossly intact, Neuro grossly intact, Motor Exam 5/5 strength throughout Psych/Mental Status: Alert and oriented to time, place, person, mood and affect Vital Signs Temp Pulse Resp BP Pulse Ox 37.5 C H 96 26 H 112/53 L 93 09/24/17 06:00 09/24/17 06:00 09/24/17 06:00 09/24/17 06:38 09/24/17 06:00 Oxygen Flow Rate (L/min) 1 Oxygen Delivery Method Room Air Weight: 120.5 kg Body Mass Index (BMI) 40.9 Intake and Output for Last 24 Hours 09/22/17 09/23/17 09/24/17 23:59 23:59 23:59 Intake Total 4886 / 4886 3065 / 3065 1185 / 1185 Output Total 140 / 140 117 / 117 25 / 25 Balance 4746 / 4746 2948 / 2948 1160 / 1160 Labs (Last 48 Hours) 09/21/17 09/22/17 09/22/17 05:45 07:20 07:20 WBC 9.8 RBC 4.92 Hgb 12.8 Hct 39.5 MCV 80.3 L MCH 26.0 L MCHC 32.4 RDW 17.2 H RDW Differential 50.2 H Plt Count 309 MPV 10.6 Neut % (Auto) Absolute Neuts (auto) Total Counted PT INR APTT Specimen Type Sample Site pH Bicarbonate Actual POC Total CO2 Base Excess O2 Saturation ABG pCO2 ABG pO2 Tho Test O2 Delivery Device Liter Flow Blood Gas Notified Whom Blood Gas Notified Time Sodium 137 Potassium 4.6 Chloride 109 H Carbon Dioxide 12.0 L Anion Gap 16 H BUN 33 H Creatinine 4.71 H Estim Creat Clear Calc 15.50 Est GFR (MDRD) Af Amer 15 L Est GFR (MDRD) Non-Af 12 L BUN/Creatinine Ratio 7.0 L Glucose 148 H Lactic Acid Calcium < 5.0 L* < 5.0 L* Ionized Calcium Magnesium 2.2 Total Bilirubin 1.00 AST 188 H ALT 63 H Alkaline Phosphatase 52 Total Protein 6.1 L Albumin 1.7 L Globulin 4.4 H Albumin/Globulin Ratio 0.4 L Lipase 3124 H U Random Total Protein Ur Random Sodium Urine Creatinine Protein/Creatinin Ratio Hep Bs Antigen Hep Bs Antibody Hep B Core Total Ab MRSA (PCR) POC Glucose 09/22/17 09/22/17 09/22/17 07:20 07:20 11:43 WBC RBC Hgb Hct MCV MCH MCHC RDW RDW Differential Plt Count MPV Neut % (Auto) Absolute Neuts (auto) Total Counted PT INR APTT Specimen Type Sample Site pH Bicarbonate Actual POC Total CO2 Base Excess O2 Saturation ABG pCO2 ABG pO2 Tho Test O2 Delivery Device Liter Flow Blood Gas Notified Whom Blood Gas Notified Time Sodium Potassium Chloride Carbon Dioxide Anion Gap BUN Creatinine Estim Creat Clear Calc Est GFR (MDRD) Af Amer Est GFR (MDRD) Non-Af BUN/Creatinine Ratio Glucose Lactic Acid Cancelled Calcium Ionized Calcium Magnesium Cancelled Total Bilirubin AST ALT Alkaline Phosphatase Total Protein Albumin Globulin Albumin/Globulin Ratio Lipase U Random Total Protein Ur Random Sodium Urine Creatinine Protein/Creatinin Ratio Hep Bs Antigen Hep Bs Antibody Hep B Core Total Ab MRSA (PCR) POC Glucose 144 H 07/07/18 07/07/18 07/07/18 14:05 14:55 14:55 WBC RBC Hgb Hct MCV MCH MCHC RDW RDW Differential Plt Count MPV Neut % (Auto) Absolute Neuts (auto) Total Counted PT INR APTT Specimen Type Sample Site pH Bicarbonate Actual POC Total CO2 Base Excess O2 Saturation ABG pCO2 ABG pO2 Tho Test O2 Delivery Device Liter Flow Blood Gas Notified Whom Blood Gas Notified Time Sodium Potassium Chloride Carbon Dioxide Anion Gap BUN Creatinine Estim Creat Clear Calc Est GFR (MDRD) Af Amer Est GFR (MDRD) Non-Af BUN/Creatinine Ratio Glucose Lactic Acid Calcium 5.3 L* Ionized Calcium Magnesium Total Bilirubin AST ALT Alkaline Phosphatase Total Protein Albumin Globulin Albumin/Globulin Ratio Lipase U Random Total Protein 233.2 H Ur Random Sodium 39 Urine Creatinine 251.00 261.00 Protein/Creatinin Ratio 929 H Hep Bs Antigen Hep Bs Antibody Hep B Core Total Ab MRSA (PCR) POC Glucose 09/22/17 09/22/17 09/22/17 15:55 17:00 17:30 WBC RBC Hgb Hct MCV MCH MCHC RDW RDW Differential Plt Count MPV Neut % (Auto) Absolute Neuts (auto) Total Counted PT 17.0 H INR 1.4 APTT 33.7 Specimen Type ART Sample Site R Radial pH 7.30 L Bicarbonate Actual 9.3 L POC Total CO2 10 Base Excess -17 L O2 Saturation 95 ABG pCO2 19.0 L ABG pO2 79 Tho Test POS O2 Delivery Device Nasal Can Liter Flow 3.0 Blood Gas Notified Whom [facility] Blood Gas Notified Time 1600 Sodium Potassium Chloride Carbon Dioxide Anion Gap BUN Creatinine Estim Creat Clear Calc Est GFR (MDRD) Af Amer Est GFR (MDRD) Non-Af BUN/Creatinine Ratio Glucose Lactic Acid Calcium Ionized Calcium Pending Magnesium Total Bilirubin AST ALT Alkaline Phosphatase Total Protein Albumin Globulin Albumin/Globulin Ratio Lipase U Random Total Protein Ur Random Sodium Urine Creatinine Protein/Creatinin Ratio Hep Bs Antigen Hep Bs Antibody Hep B Core Total Ab MRSA (PCR) POC Glucose 09/22/17 09/22/17 09/22/17 17:45 21:00 23:54 WBC RBC Hgb Hct MCV MCH MCHC RDW RDW Differential Plt Count MPV Neut % (Auto) Absolute Neuts (auto) Total Counted PT INR APTT Specimen Type Sample Site pH Bicarbonate Actual POC Total CO2 Base Excess O2 Saturation ABG pCO2 ABG pO2 Tho Test O2 Delivery Device Liter Flow Blood Gas Notified Whom Blood Gas Notified Time Sodium 134 L Potassium 4.7 Chloride 106 Carbon Dioxide 15.0 L Anion Gap 13 BUN 40 H Creatinine 5.34 H Estim Creat Clear Calc Est GFR (MDRD) Af Amer Est GFR (MDRD) Non-Af BUN/Creatinine Ratio 7.5 L Glucose 136 H Lactic Acid Calcium Ionized Calcium Magnesium Total Bilirubin AST ALT Alkaline Phosphatase Total Protein Albumin Globulin Albumin/Globulin Ratio Lipase U Random Total Protein Ur Random Sodium Urine Creatinine Protein/Creatinin Ratio Hep Bs Antigen Hep Bs Antibody Hep B Core Total Ab MRSA (PCR) Negative POC Glucose 108 09/23/17 09/23/17 09/23/17 01:20 01:20 05:21 WBC RBC Hgb Hct MCV MCH MCHC RDW RDW Differential Plt Count MPV Neut % (Auto) Absolute Neuts (auto) Total Counted PT INR APTT Specimen Type Sample Site pH Bicarbonate Actual POC Total CO2 Base Excess O2 Saturation ABG pCO2 ABG pO2 Tho Test O2 Delivery Device Liter Flow Blood Gas Notified Whom Blood Gas Notified Time Sodium Potassium Chloride Carbon Dioxide Anion Gap BUN Creatinine Estim Creat Clear Calc Est GFR (MDRD) Af Amer Est GFR (MDRD) Non-Af BUN/Creatinine Ratio Glucose Lactic Acid Calcium 6.8 L Ionized Calcium Magnesium Total Bilirubin AST ALT Alkaline Phosphatase Total Protein Albumin Globulin Albumin/Globulin Ratio Lipase U Random Total Protein Ur Random Sodium Urine Creatinine Protein/Creatinin Ratio Hep Bs Antigen Pending Hep Bs Antibody Pending Hep B Core Total Ab Pending MRSA (PCR) POC Glucose 138 H 09/23/17 09/23/17 09/23/17 05:30 05:30 11:59 WBC 7.9 RBC 4.11 L Hgb 10.6 L Hct 32.7 L MCV 79.6 L MCH 25.8 L MCHC 32.4 RDW 16.5 H RDW Differential 48.0 H Plt Count 209 MPV 10.1 Neut % (Auto) Absolute Neuts (auto) Total Counted PT INR APTT Specimen Type Sample Site pH Bicarbonate Actual POC Total CO2 Base Excess O2 Saturation ABG pCO2 ABG pO2 Tho Test O2 Delivery Device Liter Flow Blood Gas Notified Whom Blood Gas Notified Time Sodium 138 Potassium 4.1 Chloride 101 Carbon Dioxide 22.0 Anion Gap 15 BUN 32 H Creatinine 4.42 H Estim Creat Clear Calc 16.51 Est GFR (MDRD) Af Amer 16 L Est GFR (MDRD) Non-Af 13 L BUN/Creatinine Ratio 7.2 L Glucose 140 H Lactic Acid Calcium 6.1 L* Ionized Calcium Magnesium Total Bilirubin AST ALT Alkaline Phosphatase Total Protein Albumin Globulin Albumin/Globulin Ratio Lipase 1359 H U Random Total Protein Ur Random Sodium Urine Creatinine Protein/Creatinin Ratio Hep Bs Antigen Hep Bs Antibody Hep B Core Total Ab MRSA (PCR) POC Glucose 159 H 09/23/17 09/23/17 09/24/17 16:10 18:13 00:10 WBC RBC Hgb Hct MCV MCH MCHC RDW RDW Differential Plt Count MPV Neut % (Auto) Absolute Neuts (auto) Total Counted PT INR APTT Specimen Type Sample Site pH Bicarbonate Actual POC Total CO2 Base Excess O2 Saturation ABG pCO2 ABG pO2 Tho Test O2 Delivery Device Liter Flow Blood Gas Notified Whom Blood Gas Notified Time Sodium Potassium Chloride Carbon Dioxide Anion Gap BUN Creatinine Estim Creat Clear Calc Est GFR (MDRD) Af Amer Est GFR (MDRD) Non-Af BUN/Creatinine Ratio Glucose Lactic Acid Calcium 6.3 L* 6.4 L* Ionized Calcium Magnesium Total Bilirubin AST ALT Alkaline Phosphatase Total Protein Albumin Globulin Albumin/Globulin Ratio Lipase U Random Total Protein Ur Random Sodium Urine Creatinine Protein/Creatinin Ratio Hep Bs Antigen Hep Bs Antibody Hep B Core Total Ab MRSA (PCR) POC Glucose 132 H 09/24/17 09/24/17 09/24/17 00:11 04:50 04:50 WBC Pending RBC Pending Hgb Pending Hct Pending MCV Pending MCH Pending MCHC Pending RDW Pending RDW Differential Pending Plt Count Pending MPV Neut % (Auto) Pending Absolute Neuts (auto) Pending Total Counted Pending PT INR APTT Specimen Type Sample Site pH Bicarbonate Actual POC Total CO2 Base Excess O2 Saturation ABG pCO2 ABG pO2 Tho Test O2 Delivery Device Liter Flow Blood Gas Notified Whom Blood Gas Notified Time Sodium 138 Potassium 3.9 Chloride 103 Carbon Dioxide 20.0 L Anion Gap 15 BUN 51 H Creatinine 6.00 H Estim Creat Clear Calc 12.17 Est GFR (MDRD) Af Amer 11 L Est GFR (MDRD) Non-Af 9 L BUN/Creatinine Ratio 8.5 L Glucose 122 H Lactic Acid Calcium 6.1 L* Ionized Calcium Magnesium Total Bilirubin 0.80 AST 70 H ALT 34 Alkaline Phosphatase 55 Total Protein 5.6 L Albumin 1.5 L Globulin 4.1 Albumin/Globulin Ratio 0.4 L Lipase U Random Total Protein Ur Random Sodium Urine Creatinine Protein/Creatinin Ratio Hep Bs Antigen Hep Bs Antibody Hep B Core Total Ab MRSA (PCR) POC Glucose 109 Medical Necessity - Tobacco Use Smoking Status: Never smoker Tobacco Use: Non-smoker Assessment/Plan All Active Problems (Last Reviewed 07/25/17 @ 14:54 by Sydni Chen) Severe preeclampsia (Acute) Recurrent acute pancreatitis (Acute) KIM (acute kidney injury) (Acute) Hypertension complicating in third trimester (Acute) High-risk in third trimester (Acute) Diabetes in (Acute) History of pre-eclampsia (Acute) Acute pancreatitis (Resolved) Hypertension affecting in second trimester (Resolved) Supervision of high risk in second trimester (Resolved) RECOMMENDATIONS: 1. Mobilize patient to bedside recliner and encourage aggressive incentive spirometer use 2. Continue current pain control regimen 3. Continue fluids and aggressive electrolyte repletion 4. Advance diet per surgery recommendations. 5. Place SCDs for DVT prophylaxis. Physical therapy to evaluate patient. 6. Okay to leave the intensive care unit from my perspective IMPRESSIONS: 1. Severe sepsis secondary to severe necrotizing pancreatitis of unclear etiology The patient appears to be slowly improving clinically with conservative management including n.p.o. status and supplemental IV fluid hydration. Patient has responded to pain control and mobilization. Patient currently on room air. The etiology for the patient's recurrent pancreatitis remains unclear at this time. Continue [employer] pain control regimen. Defer to surgery on decrease in [employer]GER settings. Continue aggressive electrolyte repletion. 2. Acute kidney injury Likely secondary to ATN in the setting of severe sepsis and chronic pancreatitis with subsequent third spacing. The patient did receive 1 episode of hemodialysis, but creatinine and BUN are elevated today. Will discuss with nephrology on whether repeat hemodialysis is necessary. Hemodynamically stable at this time. Nephrology reporting likely transient need for hemodialysis. 3. Non-gap metabolic acidosis/hypocalcemia Secondary to numbers 1 and 2. Plan to continue supplemental IV fluid hydration and aggressive electrolyte repletion. Corrected calcium of 8.1 using albumin. 4. Ileus Likely related to #1. Anticipate improvement with resolution of the patient's underlying pancreatitis. 5. Baseline diabetes/hypertension/depression/obesity Complicates care, management, recovery and prognosis. Continue home medications as indicated. Metformin should remain on hold given renal failure. Continue sliding scale insulin coverage. This note was generated with [employer] software. It may contain incorrect words, spelling, and punctuation that were not noted in checking the note before signing. Code Visit Inpatient E&M: 17369 Subs Hosp L3
[2017-09-24 07:01] LABS: Differential Indicated SCAN CRITERIA MET; POSITIVE COUNT NO; POSITIVE DIFFERENTIAL YES; POSITIVE MORPHOLOGY NO
[2017-09-24] MEDS: 0.9% Normal Saline 1,000 ML 125 ML IV ×3 (07:02→22:24)
[2017-09-24 07:20] LABS: Differential Comment SCANNED
--- NOTE | 2017-09-24 08:55 | PCM.PN.SRG ---
Patient Problems: Active and Suspected Problems (Last Reviewed 07/25/17 @ 14:54 by Sydni Chen) Recurrent acute pancreatitis (Acute) KIM (acute kidney injury) (Acute) Subjective: The patient reports some improvement in her abdominal pain. She said she had multiple bowel movements yesterday and is passing gas. She is not having any nausea or vomiting. - Physical Exam General: Alert, Cooperative HEENT: Atraumatic Lungs: Normal air movement Cardiovascular: Regular Rhythm, Tachycardic Abdomen: Soft, Non-Distended, Tender - Mild epigastric tenderness. Extremities: No clubbing Skin: No rashes Musculoskeletal: No Muscle Wasting Neurological: Cranial nerves II-XII grossly intact Psych/Mental Status: Normal Affect Vital Signs Temp Pulse Resp BP Pulse Ox 99.5 F H 98 22 H 109/52 L 92 09/24/17 06:00 09/24/17 07:00 09/24/17 07:00 09/24/17 07:00 09/24/17 07:00 Oxygen Flow Rate (L/min) 1 Oxygen Delivery Method Room Air Weight: 265 lb 10.512 oz Body Mass Index (BMI) 40.9 Intake and Output for Last 24 Hours 09/22/17 09/23/17 09/24/17 23:59 23:59 23:59 Intake Total 4886 / 4886 3065 / 3065 1185 / 1185 Output Total 140 / 140 117 / 117 25 / 25 Balance 4746 / 4746 2948 / 2948 1160 / 1160 Laboratory Tests Past 24 Hrs 09/23/17 09/24/17 09/24/17 16:10 00:10 04:50 WBC 7.7 RBC 3.43 L Hgb 9.0 L Hct 27.7 L MCV 80.8 L MCH 26.2 L MCHC 32.5 RDW 16.4 H RDW Differential 47.2 H Plt Count 202 MPV 10.0 Immature Gran % (Auto) 0.500 Neut % (Auto) 83.3 H Lymph % (Auto) 7.[address] [facility] % (Auto) 6.1 Eos % (Auto) 2.3 Baso % (Auto) 0.1 Absolute Neuts (auto) 6.4 Absolute Lymphs (auto) 0.59 L Total Counted Not Reportable Differential Comment SCANNED Sodium Potassium Chloride Carbon Dioxide Anion Gap BUN Creatinine Estim Creat Clear Calc Est GFR (MDRD) Af Amer Est GFR (MDRD) Non-Af BUN/Creatinine Ratio Glucose Calcium 6.3 L* 6.4 L* Total Bilirubin AST ALT Alkaline Phosphatase Total Protein Albumin Globulin Albumin/Globulin Ratio 09/24/17 04:50 WBC RBC Hgb Hct MCV MCH MCHC RDW RDW Differential Plt Count MPV Immature Gran % (Auto) Neut % (Auto) Lymph % (Auto) [facility] % (Auto) Eos % (Auto) Baso % (Auto) Absolute Neuts (auto) Absolute Lymphs (auto) Total Counted Differential Comment Sodium 138 Potassium 3.9 Chloride 103 Carbon Dioxide 20.0 L Anion Gap 15 BUN 51 H Creatinine 6.00 H Estim Creat Clear Calc 12.17 Est GFR (MDRD) Af Amer 11 L Est GFR (MDRD) Non-Af 9 L BUN/Creatinine Ratio 8.5 L Glucose 122 H Calcium 6.1 L* Total Bilirubin 0.80 AST 70 H ALT 34 Alkaline Phosphatase 55 Total Protein 5.6 L Albumin 1.5 L Globulin 4.1 Albumin/Globulin Ratio 0.4 L POC Glucose 09/24/17 09/23/17 09/23/17 00:11 18:13 11:59 POC Glucose 109 132 H 159 H Medical Necessity - Tobacco Use Smoking Status: Never smoker Tobacco Use: Non-smoker Assessment/Plan All Active Problems (Last Reviewed 07/25/17 @ 14:54 by Sydni Chen) Severe preeclampsia (Acute) Recurrent acute pancreatitis (Acute) KIM (acute kidney injury) (Acute) Hypertension complicating in third trimester (Acute) High-risk in third trimester (Acute) Diabetes in (Acute) History of pre-eclampsia (Acute) Acute pancreatitis (Resolved) Hypertension affecting in second trimester (Resolved) Supervision of high risk in second trimester (Resolved) 22-year-old female with acute pancreatitis with necrosis 1. I checked the patient's [employer] pump and she has taken 1.3 mg of Dilaudid in the last 3 hours. She reports that her epigastric pain is improved and she is passing flatus and having bowel movements. I will start her on a clear liquid diet but asked that she be fluid restricted during the first day to make sure this does not get worse. If this causes any worsening of her epigastric pain or nausea or vomiting I recommend returning her to n.p.o. I will not start her on a regular diet until she is having no pain and off of pain medication. 2. Acute renal failure-patient's creatinine continues to rise. Urine output is minimal. Nephrology on consult and are performing dialysis as needed. 3. The hemoglobin continued to fall but I believe this may be due to the dialysis versus hemodilution. Continue SCDs for DVT prophylaxis. 4. Patient pedro have much improved over the last 2 days. Patient likely being discharged from the ICU today. Durga Savage MD Pager: [facility] [address] [place] [address], [address] [place] [address] Office:
--- NOTE | 2017-09-24 08:59 | PN.SURG_ITS ---
Patient Problems: Active and Suspected Problems (Last Reviewed 07/25/17 @ 14:54 by Sydni Chen) Recurrent acute pancreatitis (Acute) KIM (acute kidney injury) (Acute) Subjective: The patient reports some improvement in her abdominal pain. She said she had multiple bowel movements yesterday and is passing gas. She is not having any nausea or vomiting. - Physical Exam General: Alert, Cooperative HEENT: Atraumatic Lungs: Normal air movement Cardiovascular: Regular Rhythm, Tachycardic Abdomen: Soft, Non-Distended, Tender - Mild epigastric tenderness. Extremities: No clubbing Skin: No rashes Musculoskeletal: No Muscle Wasting Neurological: Cranial nerves II-XII grossly intact Psych/Mental Status: Normal Affect Vital Signs Temp Pulse Resp BP Pulse Ox 99.5 F H 98 22 H 109/52 L 92 09/24/17 06:00 09/24/17 07:00 09/24/17 07:00 09/24/17 07:00 09/24/17 07:00 Oxygen Flow Rate (L/min) 1 Oxygen Delivery Method Room Air Weight: 265 lb 10.512 oz Body Mass Index (BMI) 40.9 Intake and Output for Last 24 Hours 09/22/17 09/23/17 09/24/17 23:59 23:59 23:59 Intake Total 4886 / 4886 3065 / 3065 1185 / 1185 Output Total 140 / 140 117 / 117 25 / 25 Balance 4746 / 4746 2948 / 2948 1160 / 1160 Laboratory Tests Past 24 Hrs 09/23/17 09/24/17 09/24/17 16:10 00:10 04:50 WBC 7.7 RBC 3.43 L Hgb 9.0 L Hct 27.7 L MCV 80.8 L MCH 26.2 L MCHC 32.5 RDW 16.4 H RDW Differential 47.2 H Plt Count 202 MPV 10.0 Immature Gran % (Auto) 0.500 Neut % (Auto) 83.3 H Lymph % (Auto) 7.7 L [facility] % (Auto) 6.1 Eos % (Auto) 2.3 Baso % (Auto) 0.1 Absolute Neuts (auto) 6.4 Absolute Lymphs (auto) 0.59 L Total Counted Not Reportable Differential Comment SCANNED Sodium Potassium Chloride Carbon Dioxide Anion Gap BUN Creatinine Estim Creat Clear Calc Est GFR (MDRD) Af Amer Est GFR (MDRD) Non-Af BUN/Creatinine Ratio Glucose Calcium 6.3 L* 6.4 L* Total Bilirubin AST ALT Alkaline Phosphatase Total Protein Albumin Globulin Albumin/Globulin Ratio 09/24/17 04:50 WBC RBC Hgb Hct MCV MCH MCHC RDW RDW Differential Plt Count MPV Immature Gran % (Auto) Neut % (Auto) Lymph % (Auto) Arthur % (Auto) Eos % (Auto) Baso % (Auto) Absolute Neuts (auto) Absolute Lymphs (auto) Total Counted Differential Comment Sodium 138 Potassium 3.9 Chloride 103 Carbon Dioxide 20.0 L Anion Gap 15 BUN 51 H Creatinine 6.00 H Estim Creat Clear Calc 12.17 Est GFR (MDRD) Af Amer 11 L Est GFR (MDRD) Non-Af 9 L BUN/Creatinine Ratio 8.5 L Glucose 122 H Calcium 6.1 L* Total Bilirubin 0.80 AST 70 H ALT 34 Alkaline Phosphatase 55 Total Protein 5.6 L Albumin 1.5 L Globulin 4.1 Albumin/Globulin Ratio 0.4 L POC Glucose 09/24/17 09/23/17 09/23/17 00:11 18:13 11:59 POC Glucose 109 132 H 159 H Medical Necessity - Tobacco Use Smoking Status: Never smoker Tobacco Use: Non-smoker Assessment/Plan All Active Problems (Last Reviewed 07/25/17 @ 14:54 by Sydni Chen) Severe preeclampsia (Acute) Recurrent acute pancreatitis (Acute) KIM (acute kidney injury) (Acute) Hypertension complicating in third trimester (Acute) High-risk in third trimester (Acute) Diabetes in (Acute) History of pre-eclampsia (Acute) Acute pancreatitis (Resolved) Hypertension affecting in second trimester (Resolved) Supervision of high risk in second trimester (Resolved) 22-year-old female with acute pancreatitis with necrosis 1. I checked the patient's CALL [employer]CT [employer] LEADER pump and she has taken 1.3 mg of Dilaudid in the last 3 hours. She reports that her epigastric pain is improved and she is passing flatus and having bowel movements. I will start her on a clear liquid diet but asked that she be fluid restricted during the first day to make sure this does not get worse. If this causes any worsening of her epigastric pain or nausea or vomiting I recommend returning her to n.p.o. I will not start her on a regular diet until she is having no pain and off of pain medication. 2. Acute renal failure-patient's creatinine continues to rise. Urine output is minimal. Nephrology on consult and are performing dialysis as needed. 3. The hemoglobin continued to fall but I believe this may be due to the dialysis versus hemodilution. Continue SCDs for DVT prophylaxis. 4. Patient pedro have much improved over the last 2 days. Patient likely being discharged from the ICU today. Durga Savage MD Pager: [facility] [address] [place] [address], [address] [place] [address] Office:
--- NOTE | 2017-09-24 10:01 | PCM.PN.REN ---
Patient Problems: Active and Suspected Problems (Last Reviewed 07/25/17 @ 14:54 by Sydni Chen) Recurrent acute pancreatitis (Acute) KIM (acute kidney injury) (Acute) Subjective: Patient is doing better. on CLD Patient said her pain is well controlled No nausea No vomiting No SOB - Physical Exam General: Alert, Oriented x3 HEENT: Atraumatic Oral: Moist Mucosa Neck: Supple, No JVD Lungs: Clear to auscultation, Normal air movement Cardiovascular: Regular rate, Regular Rhythm, Normal S1, Normal S2 Abdomen: Soft, Obese, Tender Extremities: No clubbing, No cyanosis Musculoskeletal: No Tenderness to Palpation of Joints or Extremities Lymphatic: No Cervical, Supraclavicular, or Inguinal Adenopathy Neurological: Cranial nerves II-XII grossly intact, Neuro grossly intact Psych/Mental Status: Normal Affect Vital Signs Temp Pulse Resp BP Pulse Ox 99.5 F H 98 22 H 109/52 L 92 09/24/17 06:00 09/24/17 07:00 09/24/17 07:00 09/24/17 07:00 09/24/17 07:00 Oxygen Flow Rate (L/min) 1 Oxygen Delivery Method Room Air Weight: 120.5 kg Body Mass Index (BMI) 40.9 Intake and Output for Last 24 Hours 09/22/17 09/23/17 09/24/17 23:59 23:59 23:59 Intake Total 4886 / 4886 3065 / 3065 1185 / 1185 Output Total 140 / 140 117 / 117 25 / 25 Balance 4746 / 4746 2948 / 2948 1160 / 1160 Laboratory Tests Past 24 Hrs 09/23/17 09/24/17 09/24/17 16:10 00:10 04:50 WBC 7.7 RBC 3.43 L Hgb 9.0 L Hct 27.7 L MCV 80.8 L MCH 26.2 L MCHC 32.5 RDW 16.4 H RDW Differential 47.2 H Plt Count 202 MPV 10.0 Immature Gran % (Auto) 0.500 Neut % (Auto) 83.3 H Lymph % (Auto) 7.7 L [place] % (Auto) 6.1 Eos % (Auto) 2.3 Baso % (Auto) 0.1 Absolute Neuts (auto) 6.4 Absolute Lymphs (auto) 0.59 L Total Counted Not Reportable Differential Comment SCANNED Sodium Potassium Chloride Carbon Dioxide Anion Gap BUN Creatinine Estim Creat Clear Calc Est GFR (MDRD) Af Amer Est GFR (MDRD) Non-Af BUN/Creatinine Ratio Glucose Calcium 6.3 L* 6.4 L* Total Bilirubin AST ALT Alkaline Phosphatase Total Protein Albumin Globulin Albumin/Globulin Ratio 09/24/17 04:50 WBC RBC Hgb Hct MCV MCH MCHC RDW RDW Differential Plt Count MPV Immature Gran % (Auto) Neut % (Auto) Lymph % (Auto) [place] % (Auto) Eos % (Auto) Baso % (Auto) Absolute Neuts (auto) Absolute Lymphs (auto) Total Counted Differential Comment Sodium 138 Potassium 3.9 Chloride 103 Carbon Dioxide 20.0 L Anion Gap 15 BUN 51 H Creatinine 6.00 H Estim Creat Clear Calc 12.17 Est GFR (MDRD) Af Amer 11 L Est GFR (MDRD) Non-Af 9 L BUN/Creatinine Ratio 8.5 L Glucose 122 H Calcium 6.1 L* Total Bilirubin 0.80 AST 70 H ALT 34 Alkaline Phosphatase 55 Total Protein 5.6 L Albumin 1.5 L Globulin 4.1 Albumin/Globulin Ratio 0.4 L POC Glucose 09/24/17 09/23/17 09/23/17 00:11 18:13 11:59 POC Glucose 109 132 H 159 H Medical Necessity - Tobacco Use Smoking Status: Never smoker Tobacco Use: Non-smoker Assessment/Plan All Active Problems (Last Reviewed 07/25/17 @ 14:54 by Sydni Chen) Severe preeclampsia (Acute) Recurrent acute pancreatitis (Acute) KIM (acute kidney injury) (Acute) Hypertension complicating in third trimester (Acute) High-risk in third trimester (Acute) Diabetes in (Acute) History of pre-eclampsia (Acute) Acute pancreatitis (Resolved) Hypertension affecting in second trimester (Resolved) Supervision of high risk in second trimester (Resolved) 1- KIM due to ATN from pancreatitis and contrast exposure Normal Cr at baseline. Oliguric . No recovery of kidney function. Cr is still significantly rising Patient is now HD dependent. Patient had the 1srt session of HD on 09/22 Will arrange for 2nd session of HD today for fluid and metabolic support. Will run the session today for 3 hours, BQ 300, DQ 500 UF 2L Will continue to monitor kidney function recovery Keep MAP > 65 Avoid IV contrast 2- Hypocalcemia . most probably from pancreatitis. Will dialyze her today with 3 Ca dialysate Please avoid parental Ca unless symptomatic 3- High anion gap acidosis . resolved with HD 4- Necrotizing pancreatitis . Improving. Renal team will continue to follow Joseph Gomez MD [phone]
[2017-09-24] MEDS: Labetalol 100 MG Tablet PO ×2 (10:11→22:25)
[2017-09-24] MEDS: Famotidine 20 MG Tablet PO (10:15)
[2017-09-24] MEDS: CHLORHEXIDINE GLUC 2% CLOTH 1 EACH TOWELETTE TOPICAL (10:19)
[2017-09-24] MEDS: Sertraline 100 MG Tablet PO (10:19)
[2017-09-24] MEDS: HYDROmorphone 0.5 MG/0.5 ML SYRINGE IV ×5 (11:11→22:24)
[2017-09-24 12:31] LABS: Bedside Glucose 118 mg/dL (70-110)
--- NOTE | 2017-09-24 15:21 | PCM.PROGNOTE ---
Patient Problems: Active and Suspected Problems (Last Reviewed 07/25/17 @ 14:54 by Sydni Chen) Recurrent acute pancreatitis (Acute) KIM (acute kidney injury) (Acute) Subjective: Seen and examined today in the ICU, she appears comfortable, I also discussed her care with critical care and nephrology. Patient will be dialyzed today, I believe she is stable for transfer to the medical floor, labs will be monitored there. Patient has some mild abdominal discomfort but overall has no severe abdominal pain - Physical Exam General: Alert, Oriented x3, Cooperative, No apparent distress, Well developed, Well nourished HEENT: Atraumatic, PERRLA, EOMI, Normocephalic Oral: Moist Mucosa Neck: Supple, No JVD, No Nuchal Rigidity, Trachea Midline, Thyroid Normal Size and Texture Lungs: Clear to auscultation, Normal air movement, No rhonchi, No wheeze, No rales Cardiovascular: Regular rate, Regular Rhythm, Normal S1, Normal S2, No murmurs, PMI Normal, No rub noted Abdomen: Bowel Sounds Present, Soft, Non Tender, Non-Distended, Obese, No hernias noted Extremities: No clubbing, No cyanosis, No edema, Capillary Refill Less than 3 Seconds Skin: No rashes, No breakdown Musculoskeletal: No Tenderness to Palpation of Joints or Extremities Neurological: Cranial nerves II-XII grossly intact, Neuro grossly intact, Sensory exam intact to light touch and pain Psych/Mental Status: Normal Affect, Appropriate, Alert and oriented to time, place, person, mood and affect Vital Signs Temp Pulse Resp BP Pulse Ox 98.1 F 95 30 H 102/52 L 99 09/24/17 13:56 09/24/17 13:56 09/24/17 13:56 09/24/17 13:56 09/24/17 13:56 Oxygen Flow Rate (L/min) 2 Oxygen Delivery Method Nasal Cannula Weight: 120.5 kg Body Mass Index (BMI) 40.9 Intake and Output for Last 24 Hours 09/22/17 09/23/17 09/24/17 23:59 23:59 23:59 Intake Total 4886 / 4886 3065 / 3065 2453 / 2453 Output Total 140 / 140 117 / 117 50 / 50 Balance 4746 / 4746 2948 / 2948 2403 / 2403 Microbiology Past 72 Hours 09/22/17 14:05 Blood Culture - Preliminary Blood Culture (Wb) - Right Hand No growth in 48 hours. 09/22/17 13:50 Blood Culture - Preliminary Blood Culture (Wb) - Left Hand No growth in 48 hours. Laboratory Tests Past 24 Hrs 09/23/17 09/24/17 09/24/17 16:10 00:10 04:50 WBC 7.7 RBC 3.43 L Hgb 9.0 L Hct 27.7 L MCV 80.8 L MCH 26.2 L MCHC 32.5 RDW 16.4 H RDW Differential 47.2 H Plt Count 202 MPV 10.0 Immature Gran % (Auto) 0.500 Neut % (Auto) 83.3 H Lymph % (Auto) 7.7 L [place] % (Auto) 6.1 Eos % (Auto) 2.3 Baso % (Auto) 0.1 Absolute Neuts (auto) 6.4 Absolute Lymphs (auto) 0.59 L Total Counted Not Reportable Differential Comment SCANNED Sodium Potassium Chloride Carbon Dioxide Anion Gap BUN Creatinine Estim Creat Clear Calc Est GFR (MDRD) Af Amer Est GFR (MDRD) Non-Af BUN/Creatinine Ratio Glucose Calcium 6.3 L* 6.4 L* Total Bilirubin AST ALT Alkaline Phosphatase Total Protein Albumin Globulin Albumin/Globulin Ratio 09/24/17 04:50 WBC RBC Hgb Hct MCV MCH MCHC RDW RDW Differential Plt Count MPV Immature Gran % (Auto) Neut % (Auto) Lymph % (Auto) [place] % (Auto) Eos % (Auto) Baso % (Auto) Absolute Neuts (auto) Absolute Lymphs (auto) Total Counted Differential Comment Sodium 138 Potassium 3.9 Chloride 103 Carbon Dioxide 20.0 L Anion Gap 15 BUN 51 H Creatinine 6.00 H Estim Creat Clear Calc 12.17 Est GFR (MDRD) Af Amer 11 L Est GFR (MDRD) Non-Af 9 L BUN/Creatinine Ratio 8.5 L Glucose 122 H Calcium 6.1 L* Total Bilirubin 0.80 AST 70 H ALT 34 Alkaline Phosphatase 55 Total Protein 5.6 L Albumin 1.5 L Globulin 4.1 Albumin/Globulin Ratio 0.4 L POC Glucose 09/24/17 09/24/17 09/23/17 12:21 00:11 18:13 POC Glucose 118 H 109 132 H Medical Necessity - Tobacco Use Smoking Status: Never smoker Tobacco Use: Non-smoker Assessment/Plan All Active Problems (Last Reviewed 07/25/17 @ 14:54 by Sydni Chen) Severe preeclampsia (Acute) Recurrent acute pancreatitis (Acute) KIM (acute kidney injury) (Acute) Hypertension complicating in third trimester (Acute) High-risk in third trimester (Acute) Diabetes in (Acute) History of pre-eclampsia (Acute) Acute pancreatitis (Resolved) Hypertension affecting in second trimester (Resolved) Supervision of high risk in second trimester (Resolved) #1 recurrent pancreatitis with pancreatic necrosis-continue IV fluids, general surgery participating her care, patient is now on clear liquids #2 acute kidney injury, etiology unclear, possibly due to contrast and/or pancreatitis with volume depletion-dialysis is being performed today, nephrology is participating in her care #3 hypertension #4 depression #5 hypocalcemia-this will be monitored #6 anemia- Hb today was 9, I will repeat labs in the morning Code Visit Inpatient E&M: 73835 Subs Hosp L2
--- NOTE | 2017-09-24 17:26 | DIALYSIS ---
Pt ran 3 hr tx: [id number] removed; stable/tolerated well. Next tx front desk clerk per nephrology. HD CVC heplocked per lumen fill vol post tx.
[2017-09-24 17:31] LABS: Bedside Glucose 97 mg/dL (70-110)
[2017-09-24] MEDS: Heparin 10,000 UNITS/10 ML Vial IV (18:05)
[2017-09-24 22:36] LABS: Bedside Glucose 131 mg/dL (70-110)
[2017-09-25] VITALS (8 sets, daily range): BP systolic 121–136; BP diastolic 61–75; PULSE 88–98; RESP 18; TEMP 36.7–37.3; O2SAT 85–98
[2017-09-25] MEDS: 0.9% NaCl Peripheral Flush Adult/Peds IV ×2 (00:57→05:31)
[2017-09-25] MEDS: HYDROmorphone 0.5 MG/0.5 ML SYRINGE IV ×4 (00:57→07:22)
[2017-09-25] MEDS: 0.9% Normal Saline 1,000 ML 125 ML IV ×3 (05:29→22:48)
[2017-09-25 06:13] LABS: Hematocrit 25.5 % (37-47); Hemoglobin 8.1 g/dl (12.0-15.0)
[2017-09-25 06:20] LABS: ALB/GLOB Ratio 0.4 RATIO (0.9-2.4); AST(SGOT) 63 U/L (15-37); Alanine Aminotransfer ALT/SGPT 29 U/L (13-56); Albumin, Serum 1.6 g/dL (3.2-5.0); Alkaline Phosphatase 59 U/L (45-117); Anion Gap 14 (5-15); BUN 43 mg/dL (7-18); BUN/Creat Ratio 7.8 RATIO (10-20); Calcium,Total 6.4 mg/dL (8.5-10.1); Chloride 101 mmol/L (98-107); EST Glomerular Filtration Rate 10 mL/min (>60); Est Glom Filt Rate - Afr Amer 13 mL/min (>60); Estimated Creatinine Clearance 13.27 ml/min; Glucose 116 mg/dL (74-106); Potassium 3.7 mmol/L (3.5-5.1); Protein, Total 5.6 g/dL (6.4-8.2); Sodium Level 138 mmol/L (136-145)
[2017-09-25 06:50] LABS: Bedside Glucose 113 mg/dL (70-110)
--- NOTE | 2017-09-25 07:10 | PCM.PN.INT ---
Subjective: Patient transferred out of the intensive care unit yesterday following hemodialysis. Patient was able to tolerate hemodialysis without complication. Patient reports no new issues overnight. Abdominal pain is grossly unchanged. Patient does report flatus. No pain at the hemodialysis catheter site. General: Alert, Oriented x3, Cooperative, No apparent distress, - - Morbidly obese. Speaking in full sentences. HEENT: Atraumatic, PERRLA, EOMI, Normocephalic, - - No scleral icterus or injection noted. Oral: Moist Mucosa, No Gingival or Mucosal Lesions/ Ulcerations Neck: Supple, No JVD, No Nodes, Trachea Midline, - - Right IJ line is clean, dry and intact. Lungs: Clear to auscultation, Normal air movement, No rhonchi, No wheeze, No rales, - - Symmetric expansion. No dullness to percussion. Cardiovascular: Regular rate, Regular Rhythm, Normal S1, Normal S2, No murmurs, No rub noted, No Gallop Abdomen: Soft, Hypoactive Bowel Sounds, Distended, Tender - Comparable to yesterday Extremities: No clubbing, No cyanosis, Capillary Refill Less than 3 Seconds, Edema Skin: - - No significant change compared to previous Musculoskeletal: No Tenderness to Palpation of Joints or Extremities, No Muscle Wasting Lymphatic: No Cervical, Supraclavicular, or Inguinal Adenopathy Neurological: Cranial nerves II-XII grossly intact, Neuro grossly intact, Motor Exam 5/5 strength throughout Psych/Mental Status: Alert and oriented to time, place, person, mood and affect Vital Signs Temp Pulse Resp BP Pulse Ox 37.3 C H 88 18 123/61 H 96 09/25/17 02:20 09/25/17 02:20 09/25/17 02:20 09/25/17 02:20 09/25/17 02:30 Oxygen Flow Rate (L/min) 2 Oxygen Delivery Method Room Air Weight: 120.5 kg Body Mass Index (BMI) 40.9 Intake and Output for Last 24 Hours 09/23/17 09/24/17 09/25/17 23:59 23:59 23:59 Intake Total 3065 / 3065 4072 / 4072 688 / 688 Output Total 117 / 117 2075 / 2075 Balance 2948 / 2948 1996 668 / 668 Labs (Last 48 Hours) 09/23/17 09/23/17 09/23/17 11:59 16:10 18:13 WBC RBC Hgb Hct MCV MCH MCHC RDW RDW Differential Plt Count MPV Immature Gran % (Auto) Neut % (Auto) Lymph % (Auto) [place] % (Auto) Eos % (Auto) Baso % (Auto) Absolute Neuts (auto) Absolute Lymphs (auto) Total Counted Differential Comment Sodium Potassium Chloride Carbon Dioxide Anion Gap BUN Creatinine Estim Creat Clear Calc Est GFR (MDRD) Af Amer Est GFR (MDRD) Non-Af BUN/Creatinine Ratio Glucose Calcium 6.3 L* Total Bilirubin AST ALT Alkaline Phosphatase Total Protein Albumin Globulin Albumin/Globulin Ratio POC Glucose 159 H 132 H 09/24/17 09/24/17 09/24/17 00:10 00:11 04:50 WBC 7.7 RBC 3.43 L Hgb 9.0 L Hct 27.7 L MCV 80.8 L MCH 26.2 L MCHC 32.5 RDW 16.4 H RDW Differential 47.2 H Plt Count 202 MPV 10.0 Immature Gran % (Auto) 0.500 Neut % (Auto) 83.3 H Lymph % (Auto) 7.7 L [place] % (Auto) 6.1 Eos % (Auto) 2.3 Baso % (Auto) 0.1 Absolute Neuts (auto) 6.4 Absolute Lymphs (auto) 0.59 L Total Counted Not Reportable Differential Comment SCANNED Sodium Potassium Chloride Carbon Dioxide Anion Gap BUN Creatinine Estim Creat Clear Calc Est GFR (MDRD) Af Amer Est GFR (MDRD) Non-Af BUN/Creatinine Ratio Glucose Calcium 6.4 L* Total Bilirubin AST ALT Alkaline Phosphatase Total Protein Albumin Globulin Albumin/Globulin Ratio POC Glucose 109 09/24/17 09/24/17 09/24/17 04:50 12:21 17:25 WBC RBC Hgb Hct MCV MCH MCHC RDW RDW Differential Plt Count MPV Immature Gran % (Auto) Neut % (Auto) Lymph % (Auto) [place] % (Auto) Eos % (Auto) Baso % (Auto) Absolute Neuts (auto) Absolute Lymphs (auto) Total Counted Differential Comment Sodium 138 Potassium 3.9 Chloride 103 Carbon Dioxide 20.0 L Anion Gap 15 BUN 51 H Creatinine 6.00 H Estim Creat Clear Calc 12.17 Est GFR (MDRD) Af Amer 11 L Est GFR (MDRD) Non-Af 9 L BUN/Creatinine Ratio 8.5 L Glucose 122 H Calcium 6.1 L* Total Bilirubin 0.80 AST 70 H ALT 34 Alkaline Phosphatase 55 Total Protein 5.6 L Albumin 1.5 L Globulin 4.1 Albumin/Globulin Ratio 0.4 L POC Glucose 118 H 97 09/24/17 09/25/17 09/25/17 22:23 05:30 05:30 WBC RBC Hgb 8.1 L Hct 25.5 L MCV MCH MCHC RDW RDW Differential Plt Count MPV Immature Gran % (Auto) Neut % (Auto) Lymph % (Auto) [place] % (Auto) Eos % (Auto) Baso % (Auto) Absolute Neuts (auto) Absolute Lymphs (auto) Total Counted Differential Comment Sodium 138 Potassium 3.7 Chloride 101 Carbon Dioxide 23.0 Anion Gap 14 BUN 43 H Creatinine 5.50 H Estim Creat Clear Calc 13.27 Est GFR (MDRD) Af Amer 13 L Est GFR (MDRD) Non-Af 10 L BUN/Creatinine Ratio 7.8 L Glucose 116 H Calcium 6.4 L* Total Bilirubin 0.90 AST 63 H ALT 29 Alkaline Phosphatase 59 Total Protein 5.6 L Albumin 1.6 L Globulin 4.0 Albumin/Globulin Ratio 0.4 L POC Glucose 131 H 09/25/17 06:41 WBC RBC Hgb Hct MCV MCH MCHC RDW RDW Differential Plt Count MPV Immature Gran % (Auto) Neut % (Auto) Lymph % (Auto) [place] % (Auto) Eos % (Auto) Baso % (Auto) Absolute Neuts (auto) Absolute Lymphs (auto) Total Counted Differential Comment Sodium Potassium Chloride Carbon Dioxide Anion Gap BUN Creatinine Estim Creat Clear Calc Est GFR (MDRD) Af Amer Est GFR (MDRD) Non-Af BUN/Creatinine Ratio Glucose Calcium Total Bilirubin AST ALT Alkaline Phosphatase Total Protein Albumin Globulin Albumin/Globulin Ratio POC Glucose 113 H Microbiology 09/22/17 14:05 Blood Culture (Wb) - Right Hand Blood Culture - Preliminary No growth in 48 hours. 09/22/17 13:50 Blood Culture (Wb) - Left Hand Blood Culture - Preliminary No growth in 48 hours. Medical Necessity - Tobacco Use Smoking Status: Never smoker Tobacco Use: Non-smoker Assessment/Plan All Active Problems (Last Reviewed 07/25/17 @ 14:54 by Sydni Chen) Severe preeclampsia (Acute) Recurrent acute pancreatitis (Acute) KIM (acute kidney injury) (Acute) Hypertension complicating in third trimester (Acute) High-risk in third trimester (Acute) Diabetes in (Acute) History of pre-eclampsia (Acute) Acute pancreatitis (Resolved) Hypertension affecting in second trimester (Resolved) Supervision of high risk in second trimester (Resolved) RECOMMENDATIONS: 1. Mobilize patient to bedside recliner and encourage aggressive incentive spirometer use 2. Continue current pain control regimen 3. Electrolyte repletion per nephrology 4. Advance diet per surgery recommendations. 5. Place SCDs for DVT prophylaxis. Physical therapy to evaluate patient. 6. Hemodynamically stable on room air. Will sign off from a critical care perspective. Please call with issues. IMPRESSIONS: 1. Severe sepsis secondary to severe necrotizing pancreatitis of unclear etiology The patient appears to be slowly improving clinically with conservative management. Patient was transitioned to a clear diet yesterday and appears to be doing okay. Patient has responded to pain control and mobilization. Patient currently on room air. The etiology for the patient's recurrent pancreatitis remains unclear at this time. Continue HUM[employer] RES[employer] REPRESENTATIVE pain control regimen. Defer to surgery on decrease in HUM[employer] RES[employer] REPRESENTATIVE settings. Defer to nephrology on electrolyte repletion 2. Acute kidney injury Likely secondary to ATN in the setting of severe sepsis and chronic pancreatitis with subsequent third spacing. Patient did receive hemodialysis yesterday with appropriate change in laboratory data today. Hemodynamically stable at this time. Nephrology reporting likely transient need for hemodialysis. 3. Non-gap metabolic acidosis/hypocalcemia Secondary to numbers 1 and 2. Plan to continue supplemental IV fluid hydration and aggressive electrolyte repletion. Corrected calcium of 8.3 using albumin. 4. Ileus Likely related to #1. Patient reporting flatus, likely resolving at this point. 5. Baseline diabetes/hypertension/depression/obesity Complicates care, management, recovery and prognosis. Continue home medications as indicated. Metformin should remain on hold given renal failure. Alternative to metformin may be required given renal function. Continue sliding scale insulin coverage. Patient is currently menstruating and this may be the etiology of decreasing hemoglobin. This note was generated with [employer] software. It may contain incorrect words, spelling, and punctuation that were not noted in checking the note before signing. Code Visit Inpatient E&M: 42581 Subs Hosp L2
--- NOTE | 2017-09-25 07:47 | PCM.PN.SRG ---
Patient Problems: Active and Suspected Problems (Last Reviewed 07/25/17 @ 14:54 by Sydni Chen) Recurrent acute pancreatitis (Acute) KIM (acute kidney injury) (Acute) Subjective: Patient has no nausea or vomiting and tolerated clear liquids. She says her abdominal pain is the same and she is still requiring Dilaudid. She is passing gas. She has no fevers or chills today. - Physical Exam General: Alert, Oriented x3 Lungs: Normal air movement Cardiovascular: Regular rate, Regular Rhythm Abdomen: Soft, Non-Distended, Obese, Tender Vital Signs Temp Pulse Resp BP Pulse Ox 99.2 F H 88 18 123/61 H 96 09/25/17 02:20 09/25/17 02:20 09/25/17 02:20 09/25/17 02:20 09/25/17 02:30 Oxygen Flow Rate (L/min) 2 Oxygen Delivery Method Room Air Weight: 265 lb 10.512 oz Body Mass Index (BMI) 40.9 Intake and Output for Last 24 Hours 09/23/17 09/24/17 09/25/17 23:59 23:59 23:59 Intake Total 3065 / 3065 4072 / 4072 688 / 688 Output Total 117 / 117 2075 / 2075 20 / 20 Balance 2948 / 2948 1996 / 1996 668 / 668 Microbiology Past 72 Hours 09/22/17 14:05 Blood Culture - Preliminary Blood Culture (Wb) - Right Hand No growth in 48 hours. 09/22/17 13:50 Blood Culture - Preliminary Blood Culture (Wb) - Left Hand No growth in 48 hours. Laboratory Tests Past 24 Hrs 09/25/17 09/25/17 05:30 05:30 Hgb 8.1 L Hct 25.5 L Sodium 138 Potassium 3.7 Chloride 101 Carbon Dioxide 23.0 Anion Gap 14 BUN 43 H Creatinine 5.50 H Estim Creat Clear Calc 13.27 Est GFR (MDRD) Af Amer 13 L Est GFR (MDRD) Non-Af 10 L BUN/Creatinine Ratio 7.8 L Glucose 116 H Calcium 6.4 L* Total Bilirubin 0.90 AST 63 H ALT 29 Alkaline Phosphatase 59 Total Protein 5.6 L Albumin 1.6 L Globulin 4.0 Albumin/Globulin Ratio 0.4 L POC Glucose 07/10/18 07/09/18 07/09/18 06:41 22:23 17:25 POC Glucose 113 H 131 H 97 09/24/17 12:21 POC Glucose 118 H Medical Necessity - Tobacco Use Smoking Status: Never smoker Tobacco Use: Non-smoker Assessment/Plan All Active Problems (Last Reviewed 07/25/17 @ 14:54 by Sydni Chen) Severe preeclampsia (Acute) Recurrent acute pancreatitis (Acute) KIM (acute kidney injury) (Acute) Hypertension complicating in third trimester (Acute) High-risk in third trimester (Acute) Diabetes in (Acute) History of pre-eclampsia (Acute) Acute pancreatitis (Resolved) Hypertension affecting in second trimester (Resolved) Supervision of high risk in second trimester (Resolved) 22-year-old female with necrotizing pancreatitis 1. Patient is still requiring Dilaudid for abdominal pain. I recommend she continue clear liquid diet until her pain is gone and she is off narcotics. Once this happened she may advance her diet to regular as tolerated. 2. Patient still making minimal urine. Inf[place] is still in place. Dialysis per nephrology. 3. Patient's hemoglobin dropped 1 more gram today from yesterday. I am unsure if this is due to the necrotizing pancreatitis or her dialysis. Continue to monitor. If there is concern a repeat CAT scan can be performed but I doubt this would change her management and being done without IV contrast there is no way to determine if the necrosis is worsening. There is no concern at this time for infected necrosis as the patient is afebrile and has had a normal white count off antibiotics. Durga Savage MD Pager: [facility] [address] [place] [address], [address] [place] [address] Office:
[2017-09-25] MEDS: Sertraline 100 MG Tablet PO (09:28)
[2017-09-25] MEDS: Fenofibrate 145 MG Tablet PO (09:28)
[2017-09-25] MEDS: Labetalol 100 MG Tablet PO ×2 (09:28→22:48)
[2017-09-25] MEDS: Famotidine 20 MG Tablet PO (09:28)
[2017-09-25] MEDS: HYDROmorphone 2 MG TABLET PO ×3 (09:30→20:17)
--- NOTE | 2017-09-25 10:10 | PN_ITS ---
Patient Problems: Active and Suspected Problems (Last Reviewed 07/25/17 @ 14:54 by Sydni Chen) Recurrent acute pancreatitis (Acute) KIM (acute kidney injury) (Acute) Subjective: Patient seen and examined. Continues to complain of abdominal pain. States her pain is currently 5/10. Denies nausea/vomiting, fever, chills. Denies shortness of breath. Informed patient that diet will not be progressed while she is still on narcotics. She states understanding. - Physical Exam General: Alert, Oriented x3, Cooperative, No apparent distress HEENT: Atraumatic, PERRLA, EOMI, Normocephalic Neck: Supple, No JVD, Negative Carotid Bruits Lungs: Clear to auscultation, Normal air movement Cardiovascular: Regular rate, Regular Rhythm, Normal S1, Normal S2, No murmurs Abdomen: Bowel Sounds Present, Soft, Obese, Tender - Generalized tenderness. Extremities: No clubbing, No cyanosis, No edema, Capillary Refill Less than 3 Seconds Skin: No rashes, No breakdown Musculoskeletal: No Tenderness to Palpation of Joints or Extremities Neurological: Cranial nerves II-XII grossly intact, Neuro grossly intact Psych/Mental Status: Normal Affect, Appropriate Vital Signs Temp Pulse Resp BP Pulse Ox 99.2 F H 88 18 123/61 H 90 09/25/17 02:20 09/25/17 02:20 09/25/17 02:20 09/25/17 02:20 09/25/17 07:31 Oxygen Flow Rate (L/min) 2 Oxygen Delivery Method Nasal Cannula Weight: 120.5 kg Body Mass Index (BMI) 40.9 Intake and Output for Last 24 Hours 09/23/17 09/24/17 09/25/17 23:59 23:59 23:59 Intake Total 3065 / 3065 4072 / 4072 688 / 688 Output Total 117 / 117 2075 / 2075 Balance 2948 / 2948 1996 668 / 668 Microbiology Past 72 Hours 09/22/17 14:05 Blood Culture - Preliminary Blood Culture (Wb) - Right Hand No growth in 48 hours. 09/22/17 13:50 Blood Culture - Preliminary Blood Culture (Wb) - Left Hand No growth in 48 hours. Laboratory Tests Past 24 Hrs 09/25/17 09/25/17 05:30 05:30 Hgb 8.1 L Hct 25.5 L Sodium 138 Potassium 3.7 Chloride 101 Carbon Dioxide 23.0 Anion Gap 14 BUN 43 H Creatinine 5.50 H Estim Creat Clear Calc 13.27 Est GFR (MDRD) Af Amer 13 L Est GFR (MDRD) Non-Af 10 L BUN/Creatinine Ratio 7.8 L Glucose 116 H Calcium 6.4 L* Total Bilirubin 0.90 AST 63 H ALT 29 Alkaline Phosphatase 59 Total Protein 5.6 L Albumin 1.6 L Globulin 4.0 Albumin/Globulin Ratio 0.4 L POC Glucose 09/25/17 09/24/17 09/24/17 06:41 22:23 17:25 POC Glucose 113 H 131 H 97 09/24/17 12:21 POC Glucose 118 H Medical Necessity - Tobacco Use Smoking Status: Never smoker Tobacco Use: Non-smoker Assessment/Plan All Active Problems (Last Reviewed 07/25/17 @ 14:54 by Sydni Chen) Severe preeclampsia (Acute) Recurrent acute pancreatitis (Acute) KIM (acute kidney injury) (Acute) Hypertension complicating in third trimester (Acute) High-risk in third trimester (Acute) Diabetes in (Acute) History of pre-eclampsia (Acute) Acute pancreatitis (Resolved) Hypertension affecting in second trimester (Resolved) Supervision of high risk in second trimester (Resolved) Patient is a 22-year-old female admitted 09/20/2017 due to abdominal pain, nausea , vomiting. She has a past medical history of type 2 diabetes mellitus, depression, migraine cephalgia, hyperlipidemia, hypertension, morbid obesity and recurrent pancreatitis. 1. Recurrent pancreatitis with pancreatic necrosis-general surgery following. Tolerating clear liquid diet. Surgery recommending no advancement of diet until patient is off of narcotics. Patient continues to complain of abdominal pain. Pain regimen switched to oral. 2. Acute kidney injury secondary to ATN as a result of pancreatitis and/or contrast exposure-continues to have low urine output. Creatinine slightly improved from yesterday. Nephrology following. Patient with first session of hemodialysis 09/22. She had additional treatment 09/24/2017. Further hemodialysis per nephrology recommendation. Trend BMP. 3. Hypocalcemia-suspected secondary to pancreatitis. Per nephrology, avoid parenteral calcium unless symptomatic. 4. Metabolic acidosis-continue IV fluids. 5. Hypertension/preeclampsia-stable, continue labetalol. 6. Hyperlipidemia-continue fenofibrate. 7. Type 2 diabetes mellitus-metformin regimen on hold. Accu-Cheks before meals at bedtime with sliding scale insulin. 8. Depression-continue home sertraline regimen. 9. History of migraines 10. Morbid obesity-encourage diet and lifestyle modifications. Nutrition consult. 11. Ileus-passing flatus. Continue to monitor. 12. Acute microcytic anemia-trend CBC. DVT prophylaxis-SCDs. This patient was seen by MARISA Kirkpatrick under the supervision of Dr. Rivero.
--- NOTE | 2017-09-25 11:40 | PCM.PN.REN ---
Patient Problems: Active and Suspected Problems (Last Reviewed 07/25/17 @ 14:54 by Sydni Chen) Recurrent acute pancreatitis (Acute) KIM (acute kidney injury) (Acute) Subjective: No acute complaints. Still has some abdominal pain but no nausea No vomiting Tolerated HD session well yesterday with 2 L UF - Physical Exam General: Alert, Oriented x3 HEENT: Atraumatic Oral: Moist Mucosa Neck: Supple, No JVD Lungs: Clear to auscultation, Normal air movement, No rhonchi, No wheeze Cardiovascular: Regular rate, Regular Rhythm, Normal S1, Normal S2 Abdomen: Bowel Sounds Present, Soft, Non Tender Extremities: No clubbing, No cyanosis, No edema Skin: No rashes Musculoskeletal: No Tenderness to Palpation of Joints or Extremities Lymphatic: No Cervical, Supraclavicular, or Inguinal Adenopathy Neurological: Cranial nerves II-XII grossly intact, Neuro grossly intact Psych/Mental Status: Normal Affect Vital Signs Temp Pulse Resp BP Pulse Ox 98.1 F 98 18 128/67 H 96 09/25/17 10:00 09/25/17 10:00 09/25/17 10:00 09/25/17 10:00 09/25/17 10:00 Oxygen Flow Rate (L/min) 2 Oxygen Delivery Method Room Air Weight: 120.5 kg Body Mass Index (BMI) 40.9 Intake and Output for Last 24 Hours 09/23/17 09/24/17 09/25/17 23:59 23:59 23:59 Intake Total 3065 / 3065 4072 / 4072 688 / 688 Output Total 117 / 117 2075 / 2075 20 / 20 Balance 2948 / 2948 1996 668 / 668 Microbiology Past 72 Hours 09/22/17 14:05 Blood Culture - Preliminary Blood Culture (Wb) - Right Hand No growth in 48 hours. 09/22/17 13:50 Blood Culture - Preliminary Blood Culture (Wb) - Left Hand No growth in 48 hours. Laboratory Tests Past 24 Hrs 09/25/17 09/25/17 05:30 05:30 Hgb 8.1 L Hct 25.5 L Sodium 138 Potassium 3.7 Chloride 101 Carbon Dioxide 23.0 Anion Gap 14 BUN 43 H Creatinine 5.50 H Estim Creat Clear Calc 13.27 Est GFR (MDRD) Af Amer 13 L Est GFR (MDRD) Non-Af 10 L BUN/Creatinine Ratio 7.8 L Glucose 116 H Calcium 6.4 L* Total Bilirubin 0.90 AST 63 H ALT 29 Alkaline Phosphatase 59 Total Protein 5.6 L Albumin 1.6 L Globulin 4.0 Albumin/Globulin Ratio 0.4 L POC Glucose 09/25/17 09/24/17 09/24/17 06:41 22:23 17:25 POC Glucose 113 H 131 H 97 09/24/17 12:21 POC Glucose 118 H Medical Necessity - Tobacco Use Smoking Status: Never smoker Tobacco Use: Non-smoker Assessment/Plan All Active Problems (Last Reviewed 07/25/17 @ 14:54 by Sydni Chen) Severe preeclampsia (Acute) Recurrent acute pancreatitis (Acute) KIM (acute kidney injury) (Acute) Hypertension complicating in third trimester (Acute) High-risk in third trimester (Acute) Diabetes in (Acute) History of pre-eclampsia (Acute) Acute pancreatitis (Resolved) Hypertension affecting in second trimester (Resolved) Supervision of high risk in second trimester (Resolved) 1- KIM due to ATN from pancreatitis and contrast exposure Normal Cr at baseline. Oliguric . No recovery of kidney function. Cr is still significantly rising Patient is now HD dependent. Patient had the 1st session of HD on 09/22. Patient had her 2nd session of HD yesterday with 2 L UF No need of HD today. Will continue to monitor kidney function recovery Keep MAP > 65 Avoid IV contrast 2- Hypocalcemia . most probably from pancreatitis. Please avoid parental Ca unless symptomatic 3- High anion gap acidosis . resolved with HD 4- Necrotizing pancreatitis . Improving.management is as per the primary service Renal team will continue to follow Joseph Gomez MD [phone]
[2017-09-25 11:55] LABS: Bedside Glucose 140 mg/dL (70-110)
[2017-09-25 12:07] LABS: HEPATITIS B SURFACE AG Negative (Negative)
[2017-09-25 16:15] LABS: Bedside Glucose 109 mg/dL (70-110)
[2017-09-25 22:55] LABS: Bedside Glucose 116 mg/dL (70-110)
[2017-09-25] MEDS: Acetaminophen 325 MG Tablet 650 MG PO (22:55)
[2017-09-26] MEDS: HYDROmorphone 2 MG TABLET PO ×5 (00:38→19:54)
[2017-09-26 02:21] VITALS: BP 105/54; PULSE 87; RESP 18; TEMP 36.8; O2SAT 95
[2017-09-26 06:25] LABS: Hematocrit 24.1 % (37-47); Hemoglobin 7.7 g/dl (12.0-15.0)
[2017-09-26 06:33] LABS: Anion Gap 15 (5-15); BUN 51 mg/dL (7-18); BUN/Creat Ratio 7.4 RATIO (10-20); Calcium,Total 6.1 mg/dL (8.5-10.1); Chloride 101 mmol/L (98-107); EST Glomerular Filtration Rate 8 mL/min (>60); Est Glom Filt Rate - Afr Amer 10 mL/min (>60); Estimated Creatinine Clearance 10.58 ml/min; Glucose 101 mg/dL (74-106); Potassium 3.4 mmol/L (3.5-5.1); Sodium Level 136 mmol/L (136-145)
--- NOTE | 2017-09-26 06:44 | NURSING ---
Jakub ANDERSON advised of Calcium level of 6.1.
[2017-09-26 06:45] LABS: Bedside Glucose 116 mg/dL (70-110)
[2017-09-26] MEDS: 0.9% Normal Saline 1,000 ML 125 ML IV (06:51)
[2017-09-26] MEDS: 0.9% NaCl Peripheral Flush Adult/Peds IV (06:52)
[2017-09-26 07:45] VITALS: O2SAT 95
[2017-09-26 08:20] VITALS: BP 111/67; PULSE 90; RESP 18; TEMP 37.7; O2SAT 94
--- NOTE | 2017-09-26 08:33 | PN_ITS ---
Patient Problems: Active and Suspected Problems (Last Reviewed 07/25/17 @ 14:54 by Sydni Chen) Recurrent acute pancreatitis (Acute) KIM (acute kidney injury) (Acute) Subjective: Patient seen and examined. Resting in chair, appears comfortable. States abdominal pain continues to be 5/10. Denies nausea, vomiting. Passing flatus. States she had a small bowel movement. - Physical Exam General: Alert, Oriented x3, Cooperative, No apparent distress HEENT: Atraumatic, PERRLA, EOMI, Normocephalic Neck: Supple, No JVD, Negative Carotid Bruits Lungs: Clear to auscultation, Diminished Cardiovascular: Regular rate, Regular Rhythm, Normal S1, Normal S2, No murmurs Abdomen: Bowel Sounds Present, Soft, Non-Distended, Obese, Tender - Generalized tenderness to palpation. Extremities: No clubbing, No cyanosis, No edema, Capillary Refill Less than 3 Seconds Skin: No rashes, No breakdown Musculoskeletal: No Tenderness to Palpation of Joints or Extremities Neurological: Cranial nerves II-XII grossly intact, Neuro grossly intact Psych/Mental Status: Normal Affect, Appropriate Vital Signs Temp Pulse Resp BP Pulse Ox 98.3 F 87 18 105/54 L 95 09/26/17 02:21 09/26/17 02:21 09/26/17 02:21 09/26/17 02:21 09/26/17 02:21 Oxygen Flow Rate (L/min) 2 Oxygen Delivery Method Room Air Weight: 120.5 kg Body Mass Index (BMI) 40.9 Intake and Output for Last 24 Hours 09/24/17 09/25/17 09/26/17 23:59 23:59 23:59 Intake Total 4072 / 4072 2780 / 2780 1640 / 1640 Output Total 2075 / 2075 90 / 90 85 / 85 Balance 1996 2690 / 2690 1555 / 1555 Microbiology Past 72 Hours 09/22/17 14:05 Blood Culture - Preliminary Blood Culture (Wb) - Right Hand No growth in 48 hours. 09/22/17 13:50 Blood Culture - Preliminary Blood Culture (Wb) - Left Hand No growth in 48 hours. Laboratory Tests Past 24 Hrs 09/26/17 09/26/17 05:50 05:50 Hgb 7.7 L Hct 24.1 L Sodium 136 Potassium 3.4 L Chloride 101 Carbon Dioxide 20.0 L Anion Gap 15 BUN 51 H Creatinine 6.90 H Estim Creat Clear Calc 10.58 Est GFR (MDRD) Af Amer 10 L Est GFR (MDRD) Non-Af 8 L BUN/Creatinine Ratio 7.4 L Glucose 101 Calcium 6.1 L* POC Glucose 09/26/17 09/25/17 09/25/17 06:43 22:46 15:57 POC Glucose 116 H 116 H 109 09/25/17 11:49 POC Glucose 140 H Medical Necessity - Tobacco Use Smoking Status: Never smoker Tobacco Use: Non-smoker Assessment/Plan All Active Problems (Last Reviewed 07/25/17 @ 14:54 by Sydni Chen) Severe preeclampsia (Acute) Recurrent acute pancreatitis (Acute) KIM (acute kidney injury) (Acute) Hypertension complicating in third trimester (Acute) High-risk in third trimester (Acute) Diabetes in (Acute) History of pre-eclampsia (Acute) Acute pancreatitis (Resolved) Hypertension affecting in second trimester (Resolved) Supervision of high risk in second trimester (Resolved) Patient is a 22-year-old female admitted 09/20/2017 due to abdominal pain, nausea , vomiting. She has a past medical history of type 2 diabetes mellitus, depression, migraine cephalgia, hyperlipidemia, hypertension, morbid obesity and recurrent pancreatitis. 1. Recurrent pancreatitis with pancreatic necrosis-general surgery following. Tolerating clear liquid diet. Surgery recommending no advancement of diet until patient is off of narcotics. Patient continues to complain of abdominal pain. Pain regimen switched to oral. Complains of abdominal pain 07/26. 2. Acute kidney injury secondary to ATN as a result of pancreatitis and/or contrast exposure-continues to have very low urine output. Creatinine increased from 5.5-6.9 from yesterday to today. Nephrology following. Patient with first session of hemodialysis 09/22. She had additional treatment 09/24/2017. Further hemodialysis per nephrology recommendation. Trend BMP. 3. Hypocalcemia-suspected secondary to pancreatitis. Per nephrology, avoid parenteral calcium unless symptomatic. 4. Metabolic acidosis-continue IV fluids. 5. Hypertension/preeclampsia-stable, continue labetalol. 6. Hyperlipidemia-continue fenofibrate. 7. Type 2 diabetes mellitus-metformin regimen on hold. Accu-Cheks before meals at bedtime with sliding scale insulin. 8. Depression-continue home sertraline regimen. 9. History of migraines 10. Morbid obesity-encourage diet and lifestyle modifications. Nutrition consult. 11. Ileus-resolved. Passing flatus. Reports small bowel movement. 12. Acute microcytic anemia-trend CBC. DVT prophylaxis-SCDs. This patient was seen by MARISA Kirkpatrick under the supervision of Dr. Rivero.
--- NOTE | 2017-09-26 08:42 | PCM.PN.SRG ---
Patient Problems: Active and Suspected Problems (Last Reviewed 07/25/17 @ 14:54 by Sydni Chen) Recurrent acute pancreatitis (Acute) KIM (acute kidney injury) (Acute) Subjective: No issues overnight. Patient reports flatus. No nausea or vomiting. - Physical Exam General: Alert, Oriented x3, Cooperative Lungs: Normal air movement Cardiovascular: Regular rate, Regular Rhythm Abdomen: Soft, Non-Distended, Tender - Tender in the epigastric region. This is mild in nature. Psych/Mental Status: Normal Affect Vital Signs Temp Pulse Resp BP Pulse Ox 98.3 F 87 18 105/54 L 95 09/26/17 02:21 09/26/17 02:21 09/26/17 02:21 09/26/17 02:21 09/26/17 02:21 Oxygen Flow Rate (L/min) 2 Oxygen Delivery Method Room Air Weight: 265 lb 10.512 oz Body Mass Index (BMI) 40.9 Intake and Output for Last 24 Hours 09/24/17 09/25/17 09/26/17 23:59 23:59 23:59 Intake Total 4072 / 4072 2780 / 2780 1640 / 1640 Output Total 2075 / 2075 90 / 90 85 / 85 Balance 1996 / 1996 2690 / 2690 1555 / 1555 Microbiology Past 72 Hours 09/22/17 14:05 Blood Culture - Preliminary Blood Culture (Wb) - Right Hand No growth in 48 hours. 09/22/17 13:50 Blood Culture - Preliminary Blood Culture (Wb) - Left Hand No growth in 48 hours. Laboratory Tests Past 24 Hrs 09/26/17 09/26/17 05:50 05:50 Hgb 7.7 L Hct 24.1 L Sodium 136 Potassium 3.4 L Chloride 101 Carbon Dioxide 20.0 L Anion Gap 15 BUN 51 H Creatinine 6.90 H Estim Creat Clear Calc 10.58 Est GFR (MDRD) Af Amer 10 L Est GFR (MDRD) Non-Af 8 L BUN/Creatinine Ratio 7.4 L Glucose 101 Calcium 6.1 L* POC Glucose 09/26/17 09/25/17 09/25/17 06:43 22:46 15:57 POC Glucose 116 H 116 H 109 09/25/17 11:49 POC Glucose 140 H Medical Necessity - Tobacco Use Smoking Status: Never smoker Tobacco Use: Non-smoker Assessment/Plan All Active Problems (Last Reviewed 07/25/17 @ 14:54 by Sydni Chen) Severe preeclampsia (Acute) Recurrent acute pancreatitis (Acute) KIM (acute kidney injury) (Acute) Hypertension complicating in third trimester (Acute) High-risk in third trimester (Acute) Diabetes in (Acute) History of pre-eclampsia (Acute) Acute pancreatitis (Resolved) Hypertension affecting in second trimester (Resolved) Supervision of high risk in second trimester (Resolved) 23-year-old female with necrotizing pancreatitis 1. Patient is still requiring IV narcotics and reporting a 5 out of 10 abdominal pain. She is having tenderness to palpation but this is mild. I do recommend that she continue clear liquids until her pain is resolved and this was signified at the pancreatitis is resolved as well. If we start a regular diet to early this will stress her pancreas and make pancreatitis worse. 2. Patient's hemoglobin continues to fall slightly. There is a possibility that the patient is having hemorrhagic pancreatitis but this would be unable to be assessed without IV contrast CAT scan. Treatment would be the same to continue not to stress the pancreas and transfuse as necessary. No signs of infected necrosis. 3. Acute renal failure. Patient had dialysis yesterday and 2 L were taken off. Vitals appear stable today. Further dialysis per nephrology. Durga Savage MD Pager: [facility] [address] [place] [address], [address] [place] [address] Office:
[2017-09-26] MEDS: Famotidine 20 MG Tablet PO (09:16)
[2017-09-26] MEDS: Sertraline 100 MG Tablet PO (09:16)
[2017-09-26] MEDS: Fenofibrate 145 MG Tablet PO (09:16)
[2017-09-26] MEDS: Labetalol 100 MG Tablet PO ×2 (09:16→21:53)
--- NOTE | 2017-09-26 09:31 | PCM.PN.REN ---
Patient Problems: Active and Suspected Problems (Last Reviewed 07/25/17 @ 14:54 by Sydni Chen) Recurrent acute pancreatitis (Acute) KIM (acute kidney injury) (Acute) Subjective: Patient has had no acute issue. still oliguric. No recovery of kidney functions Still has abdominal pain 5/10 . tolerating CLD No numbness No seizure like activity. - Physical Exam General: Alert, Oriented x3 HEENT: Atraumatic Oral: Moist Mucosa Neck: Supple, No JVD Lungs: Clear to auscultation, Normal air movement, No rhonchi, No wheeze Cardiovascular: Regular rate, Regular Rhythm, Normal S1, Normal S2, No murmurs Abdomen: - - epigastric tenderness. + BS. soft Extremities: No clubbing, No cyanosis, Edema - +1 edema of LE Skin: No rashes Musculoskeletal: No Tenderness to Palpation of Joints or Extremities Lymphatic: No Cervical, Supraclavicular, or Inguinal Adenopathy Neurological: Cranial nerves II-XII grossly intact, Neuro grossly intact Psych/Mental Status: Normal Affect Vital Signs Temp Pulse Resp BP Pulse Ox 99.9 F H 90 18 111/67 94 09/26/17 08:20 09/26/17 08:20 09/26/17 08:20 09/26/17 08:20 09/26/17 08:20 Oxygen Flow Rate (L/min) 2 Oxygen Delivery Method Room Air Weight: 120.5 kg Body Mass Index (BMI) 40.9 Intake and Output for Last 24 Hours 09/24/17 09/25/17 09/26/17 23:59 23:59 23:59 Intake Total 4072 / 4072 2780 / 2780 1640 / 1640 Output Total 2075 / 2075 90 / 90 85 / 85 Balance 1996 2690 / 2690 1555 / 1555 Microbiology Past 72 Hours 09/22/17 14:05 Blood Culture - Preliminary Blood Culture (Wb) - Right Hand No growth in 48 hours. 09/22/17 13:50 Blood Culture - Preliminary Blood Culture (Wb) - Left Hand No growth in 48 hours. Laboratory Tests Past 24 Hrs 09/26/17 09/26/17 05:50 05:50 Hgb 7.7 L Hct 24.1 L Sodium 136 Potassium 3.4 L Chloride 101 Carbon Dioxide 20.0 L Anion Gap 15 BUN 51 H Creatinine 6.90 H Estim Creat Clear Calc 10.58 Est GFR (MDRD) Af Amer 10 L Est GFR (MDRD) Non-Af 8 L BUN/Creatinine Ratio 7.4 L Glucose 101 Calcium 6.1 L* POC Glucose 09/26/17 09/25/17 09/25/17 06:43 22:46 15:57 POC Glucose 116 H 116 H 109 09/25/17 11:49 POC Glucose 140 H Medical Necessity - Tobacco Use Smoking Status: Never smoker Tobacco Use: Non-smoker Assessment/Plan All Active Problems (Last Reviewed 07/25/17 @ 14:54 by Sydni Chen) Severe preeclampsia (Acute) Recurrent acute pancreatitis (Acute) KIM (acute kidney injury) (Acute) Hypertension complicating in third trimester (Acute) High-risk in third trimester (Acute) Diabetes in (Acute) History of pre-eclampsia (Acute) Acute pancreatitis (Resolved) Hypertension affecting in second trimester (Resolved) Supervision of high risk in second trimester (Resolved) 1- KIM due to ATN from pancreatitis and contrast exposure Normal Cr at baseline. Oliguric . No recovery of kidney function. Cr is still significantly rising.Last Cr trend 5.5>6.9 Patient is now HD dependent. Patient had the 1st session of HD on 09/22. Will arrange for 3rd HD session today for 3 hours and 30 minutes, UF 2L. Dialysate bath 4 K, 3 Ca Will continue to monitor kidney function recovery Keep MAP > 65 Avoid IV contrast 2- Hypocalcemia . most probably from pancreatitis. Please avoid parental Ca unless symptomatic 3- High anion gap acidosis . resolved with HD 4- Necrotizing pancreatitis . Still has abdominal pain. Still on CLD. Surgical team is following Renal team will continue to follow Joseph Gomez MD [phone]
[2017-09-26 11:17] LABS: Hep B Surface Antibodies Reactive (.); Hepatitis B Core Ab Total Negative (Negative)
[2017-09-26] MEDS: Heparin 10,000 UNITS/10 ML Vial IV (14:31)
[2017-09-26 16:17] VITALS: BP 126/80; PULSE 24; PULSE 85; RESP 24; TEMP 36.8; O2SAT 99
--- NOTE | 2017-09-26 16:19 | DIALYSIS ---
Pt ran 3.5 h: 4231; 2000 removed; stable/tolerated well; SBPs 90s-130s. Next tx conductor sleeping car per nephrology. HD CVC hep locked per lumen fill volume post tx.
[2017-09-26 16:20] LABS: Bedside Glucose 88 mg/dL (70-110)
[2017-09-26] MEDS: Acetaminophen 325 MG Tablet 650 MG PO (16:20)
[2017-09-26 19:50] VITALS: BP 120/56; PULSE 94; RESP 20; TEMP 37.1; O2SAT 97
[2017-09-26 21:55] LABS: Bedside Glucose 101 mg/dL (70-110)
[2017-09-27] MEDS: HYDROmorphone 2 MG TABLET PO ×6 (00:06→22:56)
[2017-09-27 01:59] VITALS: BP 148/72; PULSE 95; RESP 18; TEMP 37.6; O2SAT 96
[2017-09-27] MEDS: 0.9% NaCl Peripheral Flush Adult/Peds IV (06:25)
[2017-09-27 06:51] VITALS: O2SAT 87
[2017-09-27 07:00] LABS: Bedside Glucose 105 mg/dL (70-110)
[2017-09-27 07:03] LABS: Hematocrit 24.4 % (37-47); Hemoglobin 7.8 g/dl (12.0-15.0); Mean Corpuscular Hgb 25.9 pg (27.0-32.0); Mean Corpuscular Volume 81.1 fL (81-99); Mean Platelet Vol. 9.5 fl (6.2-12.0); Platelet Count 239 K/mm3 (150-450); RBC Distribution Width CV 16.5 % (11.6-14.6); RBC Distribution Width SD 48.9 fl (35.1-43.9); Red Blood Count 3.01 M/mm3 (4.2-5.4); White Blood Count 14.7 K/mm3 (4.4-11.0)
[2017-09-27 07:13] LABS: Scan Indicated on CBC? Y/N NO
[2017-09-27 07:14] LABS: Anion Gap 14 (5-15); BUN 38 mg/dL (7-18); BUN/Creat Ratio 6.6 RATIO (10-20); Calcium,Total 6.9 mg/dL (8.5-10.1); Chloride 97 mmol/L (98-107); Creatinine, Serum 5.74 mg/dL (0.55-1.02); EST Glomerular Filtration Rate 10 mL/min (>60); Est Glom Filt Rate - Afr Amer 12 mL/min (>60); Estimated Creatinine Clearance 12.72 ml/min; Glucose 101 mg/dL (74-106); Potassium 3.5 mmol/L (3.5-5.1); Sodium Level 135 mmol/L (136-145)
--- NOTE | 2017-09-27 08:22 | PCM.PN.REN ---
Patient Problems: Active and Suspected Problems (Last Reviewed 07/25/17 @ 14:54 by Sydni Chen) Recurrent acute pancreatitis (Acute) KIM (acute kidney injury) (Acute) Subjective: No acute complaints. Tolerated HD session well yesterday with 2 L UF Remains oliguric - Physical Exam General: Alert, Oriented x3 HEENT: Atraumatic Oral: Moist Mucosa Neck: Supple, No JVD Lungs: Clear to auscultation, Normal air movement, No rhonchi, No wheeze Cardiovascular: Regular rate, Regular Rhythm, Normal S1, Normal S2 Abdomen: Bowel Sounds Present, Soft, Non Tender Extremities: - - +1 edema of LE Skin: No rashes Musculoskeletal: No Tenderness to Palpation of Joints or Extremities Lymphatic: No Cervical, Supraclavicular, or Inguinal Adenopathy Neurological: Cranial nerves II-XII grossly intact, Neuro grossly intact Psych/Mental Status: Normal Affect Vital Signs Temp Pulse Resp BP Pulse Ox 99.6 F H 95 18 148/72 H 96 09/27/17 01:59 09/27/17 01:59 09/27/17 01:59 09/27/17 01:59 09/27/17 01:59 Oxygen Flow Rate (L/min) 2 Oxygen Delivery Method Nasal Cannula Weight: 120.5 kg Body Mass Index (BMI) 40.9 Intake and Output for Last 24 Hours 09/25/17 09/26/17 09/27/17 23:59 23:59 23:59 Intake Total 2780 / 2780 1640 / 1640 575 / 575 Output Total 90 / 90 2135 / 2135 50 / 50 Balance 2690 / 2690 -495 / -495 525 / 525 Microbiology Past 72 Hours 09/22/17 14:05 Blood Culture - Preliminary Blood Culture (Wb) - Right Hand No growth in 48 hours. 09/22/17 13:50 Blood Culture - Preliminary Blood Culture (Wb) - Left Hand No growth in 48 hours. Laboratory Tests Past 24 Hrs 09/22/17 09/23/17 09/27/17 17:30 01:20 06:35 WBC 14.7 H RBC 3.01 L Hgb 7.8 L Hct 24.4 L MCV 81.1 MCH 25.9 L MCHC 32.0 RDW 16.5 H RDW Differential 48.9 H Plt Count 239 MPV 9.5 Sodium Potassium Chloride Carbon Dioxide Anion Gap BUN Creatinine Estim Creat Clear Calc Est GFR (MDRD) Af Amer Est GFR (MDRD) Non-Af BUN/Creatinine Ratio Glucose Calcium Ionized Calcium 3.6 L Hep Bs Antigen Negative Hep Bs Antibody Reactive Hep B Core Total Ab Negative 09/27/17 06:35 WBC RBC Hgb Hct MCV MCH MCHC RDW RDW Differential Plt Count MPV Sodium 135 L Potassium 3.5 Chloride 97 L Carbon Dioxide 24.0 Anion Gap 14 BUN 38 H Creatinine 5.74 H Estim Creat Clear Calc 12.72 Est GFR (MDRD) Af Amer 12 L Est GFR (MDRD) Non-Af 10 L BUN/Creatinine Ratio 6.6 L Glucose 101 Calcium 6.9 L Ionized Calcium Hep Bs Antigen Hep Bs Antibody Hep B Core Total Ab POC Glucose 09/27/17 09/26/17 09/26/17 06:48 21:51 16:14 POC Glucose 105 101 88 Medical Necessity - Tobacco Use Smoking Status: Never smoker Tobacco Use: Non-smoker Assessment/Plan All Active Problems (Last Reviewed 07/25/17 @ 14:54 by Sydni Chen) Severe preeclampsia (Acute) Recurrent acute pancreatitis (Acute) KIM (acute kidney injury) (Acute) Hypertension complicating in third trimester (Acute) High-risk in third trimester (Acute) Diabetes in (Acute) History of pre-eclampsia (Acute) Acute pancreatitis (Resolved) Hypertension affecting in second trimester (Resolved) Supervision of high risk in second trimester (Resolved) 1- KIM due to ATN from pancreatitis and contrast exposure Normal Cr at baseline. Oliguric . No recovery of kidney function. Cr is still significantly rising Patient is now HD dependent. HD was started 09/22/17 Last HD session yesterday with 2 LUF No need of HD today Will continue to monitor kidney function recovery Keep MAP > 65 Avoid IV contrast 2- Hypocalcemia . most probably from pancreatitis. Please avoid parental Ca unless symptomatic 3- High anion gap acidosis . resolved with HD 4- Necrotizing pancreatitis . as per the surgical team Renal team will continue to follow Joseph Gomez MD [phone]
[2017-09-27 08:36] VITALS: BP 123/68; PULSE 95; RESP 18; TEMP 37.6; O2SAT 92
[2017-09-27] MEDS: Acetaminophen 325 MG Tablet 650 MG PO ×2 (08:43→21:03)
[2017-09-27] MEDS: Fenofibrate 145 MG Tablet PO (08:44)
[2017-09-27] MEDS: Famotidine 20 MG Tablet PO (08:44)
[2017-09-27] MEDS: Sertraline 100 MG Tablet PO (08:44)
[2017-09-27] MEDS: Labetalol 100 MG Tablet PO ×2 (08:45→22:56)
--- NOTE | 2017-09-27 11:05 | RAD_ITS ---
STUDY: X-RAY CHEST REASON FOR EXAM: Female, 22 years old. Shortness of breath. Pancreatitis. TECHNIQUE: AP and lateral views of the chest. COMPARISON: Comparison is made with prior study dated September 22, 2017. FINDINGS: A right-sided internal jugular venous catheter is seen with the tip in the right atrium. A left-sided PICC line catheter is placed. The tip is at the junction of the superior vena cava and right atrium. Poor inspiratory effort. Increased markings at the lung bases suggestive bibasilar atelectasis. Blunting of both costophrenic angles. Normal size heart. Normal mediastinum and gwen. Normal visualized pulmonary arteries. Normal visualized aortic arch and descending thoracic aorta. Normal visualized thoracic spine. Normal visualized ribs, clavicles, and shoulders. There is no demonstrated abnormality of the visualized soft tissue structures of the upper abdomen. RAD/Chest PA and Lateral IMPRESSION: Decreased lung volumes. Increased markings at the lung bases suggest bibasilar atelectasis slightly worse on the right side. Electronically Signed: Popeye Nichols MD at 12:38 EDT Tel [phone], Service support ,
[2017-09-27 11:21] LABS: Iron 12 ug/dL (50-170); Iron Binding Capacity,Total 191 ug/dL (250-450); PERCENT IRON SATURATION 6.3 % (15.0-55.0)
[2017-09-27 11:50] LABS: Bedside Glucose 133 mg/dL (70-110)
--- NOTE | 2017-09-27 13:41 | PCM.PROGNOTE ---
Patient Problems: Active and Suspected Problems (Last Reviewed 07/25/17 @ 14:54 by Sydni Chen) Recurrent acute pancreatitis (Acute) KIM (acute kidney injury) (Acute) Subjective: Pt remains overall weak. She states her abdominal pain is somewhat worse - no improvement. She had a loose BM this AM. Denies black or tarry stools. She states she is SOB without cough. She is not wheezy. She has no fever or chills. She is making very little urine in her catheter. She has no nausea or vomiting today. She is NPO now. - Physical Exam General: Alert, Oriented x3, Cooperative HEENT: Atraumatic, PERRLA, EOMI, Normocephalic Neck: Supple, No JVD, Negative Carotid Bruits Lungs: Clear to auscultation, Normal air movement Cardiovascular: Regular rate, No murmurs Abdomen: Bowel Sounds Present, Soft, Non Tender, Obese, Tender - diffuse Extremities: No edema, Capillary Refill Less than 3 Seconds Skin: No rashes, No breakdown Musculoskeletal: No Tenderness to Palpation of Joints or Extremities Neurological: Cranial nerves II-XII grossly intact Psych/Mental Status: Normal Affect, Appropriate, Alert and oriented to time, place, person, mood and affect Vital Signs Temp Pulse Resp BP Pulse Ox 99.7 F H 95 18 123/68 H 92 09/27/17 08:36 09/27/17 08:36 09/27/17 08:36 09/27/17 08:36 09/27/17 08:36 Oxygen Flow Rate (L/min) 2 Oxygen Delivery Method Room Air Weight: 120.5 kg Body Mass Index (BMI) 40.9 Intake and Output for Last 24 Hours 09/25/17 09/26/17 09/27/17 23:59 23:59 23:59 Intake Total 2780 / 2780 1640 / 1640 815 / 815 Output Total 90 / 90 2135 / 2135 70 / 70 Balance 2690 / 2690 -495 / -495 745 / 745 Microbiology Past 72 Hours 09/22/17 14:05 Blood Culture - Preliminary Blood Culture (Wb) - Right Hand No growth in 48 hours. 09/22/17 13:50 Blood Culture - Preliminary Blood Culture (Wb) - Left Hand No growth in 48 hours. Laboratory Tests Past 24 Hrs 09/27/17 09/27/17 09/27/17 06:35 06:35 06:35 WBC 14.7 H RBC 3.01 L Hgb 7.8 L Hct 24.4 L MCV 81.1 MCH 25.9 L MCHC 32.0 RDW 16.5 H RDW Differential 48.9 H Plt Count 239 MPV 9.5 Sodium 135 L Potassium 3.5 Chloride 97 L Carbon Dioxide 24.0 Anion Gap 14 BUN 38 H Creatinine 5.74 H Estim Creat Clear Calc 12.72 Est GFR (MDRD) Af Amer 12 L Est GFR (MDRD) Non-Af 10 L BUN/Creatinine Ratio 6.6 L Glucose 101 Calcium 6.9 L Iron 12 L TIBC 191 L Iron Saturation 6.3 L POC Glucose 09/27/17 09/27/17 09/26/17 11:31 06:48 21:51 POC Glucose 133 H 105 101 09/26/17 16:14 POC Glucose 88 Medical Necessity - Tobacco Use Smoking Status: Never smoker Tobacco Use: Non-smoker Assessment/Plan All Active Problems (Last Reviewed 07/25/17 @ 14:54 by Sydni Chen) Severe preeclampsia (Acute) Recurrent acute pancreatitis (Acute) KIM (acute kidney injury) (Acute) Hypertension complicating in third trimester (Acute) High-risk in third trimester (Acute) Diabetes in (Acute) History of pre-eclampsia (Acute) Acute pancreatitis (Resolved) Hypertension affecting in second trimester (Resolved) Supervision of high risk in second trimester (Resolved) 1. Acute recurrent pancreatitis with necrosis - minimal to no improvement today with increased WBCs. Gen surgery following - NPO, IV fluids. Etiology questionable, possibly 2/2 hypertriglyceridemia/prediabetes. Abdominal pain continues. Continue insulin sliding scale. 2. Acute anemia - iron studies deficient. Check hemoccult. 3. New Leukocytosis unclear etiology - Afebrile. CXR repeat with atelectasis. Repeat UA pending. Central line cath culture pending. Blood cultures NTD. 4. KIM - renal following. Continue dialysis as directed. Cath in place with little output. 5. Hyperlipidemia - risk of pancreatitis with both tricor and statins, when stable pt needs placed on statin. tricor stopped held for now. 6. Atelectasis - IS. PRN aerosols. Encourage activity/out of bed. 7. Deconditioning - PTOT. 8. Morbid obesity - will recommend calorie controlled diet at dc. DVT ppx: SCDs This patient was seen by Hebert Gibson PA-C under the supervision of Doctor Rivero.
[2017-09-27 14:23] VITALS: BP 110/63; PULSE 88; RESP 20; TEMP 36.7; O2SAT 93
[2017-09-27 14:50] LABS: Mucous, Urine 0 SEEN /hpf (<or=2+)
[2017-09-27 14:58] LABS: Color, Urine Brown (Yellow); Glucose, Dipstick Normal (Normal); Ketone-Dipstick 5 mg/dl (Negative); Leukocyte Esterase-Dipstick 500 /ul (Negative); Nitrite-Dipstick Negative (Negative); Occult Blood-Urine 250 /ul (Negative); Protein-Dipstick 500 mg/dl (Negative); Urine Bilirubin Dipstick 3 mg/dL (Negative); Urine Clarity Turbid (Clear); Urine Urobilinogen Normal (Normal); Urine pH 6.5 (5.0 - 8.0)
[2017-09-27 15:05] LABS: Bacteria 2+ /hpf (None Seen); Red Blood Cells-Urine 25-50 SEEN /hpf (0-5); White Blood Cells 50-100 SEEN /hpf (0-5); Yeast-Urine 2+ /hpf (None Seen)
[2017-09-27 15:06] LABS: Squamous Epithelial Cells - UA 0-5 SEEN /hpf (5-10)
--- NOTE | 2017-09-27 16:08 | PN.SURG_ITS ---
Patient Problems: Active and Suspected Problems (Last Reviewed 07/25/17 @ 14:54 by Sydni Chen) Recurrent acute pancreatitis (Acute) KIM (acute kidney injury) (Acute) Subjective: Patient reports worsening of her abdominal pain. - Physical Exam General: Alert, Oriented x3 Lungs: Normal air movement Abdomen: Soft, Tender Extremities: No clubbing Skin: No rashes Psych/Mental Status: Appropriate Vital Signs Temp Pulse Resp BP Pulse Ox 98.1 F 88 20 H 110/63 93 09/27/17 14:23 09/27/17 14:23 09/27/17 14:23 09/27/17 14:23 09/27/17 14:23 Oxygen Flow Rate (L/min) 2 Oxygen Delivery Method Room Air Weight: 265 lb 10.512 oz Body Mass Index (BMI) 40.9 Intake and Output for Last 24 Hours 09/25/17 09/26/17 09/27/17 23:59 23:59 23:59 Intake Total 2780 / 2780 1640 / 1640 815 / 815 Output Total 90 / 90 2135 / 2135 70 / 70 Balance 2690 / 2690 -495 / -495 745 / 745 Microbiology Past 72 Hours 09/22/17 13:50 Blood Culture - Final Blood Culture (Wb) - Left Hand No growth in 5 days. 09/22/17 14:05 Blood Culture - Final Blood Culture (Wb) - Right Hand No growth in 5 days. Laboratory Tests Past 24 Hrs 09/27/17 09/27/17 09/27/17 06:35 06:35 06:35 WBC 14.7 H RBC 3.01 L Hgb 7.8 L Hct 24.4 L MCV 81.1 MCH 25.9 L MCHC 32.0 RDW 16.5 H RDW Differential 48.9 H Plt Count 239 MPV 9.5 Sodium 135 L Potassium 3.5 Chloride 97 L Carbon Dioxide 24.0 Anion Gap 14 BUN 38 H Creatinine 5.74 H Estim Creat Clear Calc 12.72 Est GFR (MDRD) Af Amer 12 L Est GFR (MDRD) Non-Af 10 L BUN/Creatinine Ratio 6.6 L Glucose 101 Calcium 6.9 L Iron 12 L TIBC 191 L Iron Saturation 6.3 L Urine Color Urine Clarity Urine pH Ur Specific [place] Urine Protein Urine Glucose (UA) Urine Ketones Urine Occult Blood Urine Nitrite Urine Bilirubin Urine Urobilinogen Ur Leukocyte Esterase Urine RBC Urine WBC Ur Squamous Epith Cells Urine Bacteria Urine Mucus Urine Yeast 09/27/17 14:30 WBC RBC Hgb Hct MCV MCH MCHC RDW RDW Differential Plt Count MPV Sodium Potassium Chloride Carbon Dioxide Anion Gap BUN Creatinine Estim Creat Clear Calc Est GFR (MDRD) Af Amer Est GFR (MDRD) Non-Af BUN/Creatinine Ratio Glucose Calcium Iron TIBC Iron Saturation Urine Color Brown Urine Clarity Turbid Urine pH 6.5 Ur Specific [place] 1.020 Urine Protein 500 H Urine Glucose (UA) Normal Urine Ketones 5 H Urine Occult Blood 250 H Urine Nitrite Negative Urine Bilirubin 3 H Urine Urobilinogen Normal Ur Leukocyte Esterase 500 H Urine RBC 25-50 SEEN Urine WBC 50-100 SEEN Ur Squamous Epith Cells 0-5 SEEN Urine Bacteria 2+ Urine Mucus 0 SEEN Urine Yeast 2+ POC Glucose 09/27/17 09/27/17 09/26/17 11:31 06:48 21:51 POC Glucose 133 H 105 101 09/26/17 16:14 POC Glucose 88 Medical Necessity - Tobacco Use Smoking Status: Never smoker Tobacco Use: Non-smoker Assessment/Plan All Active Problems (Last Reviewed 07/25/17 @ 14:54 by Sydni Chen) Severe preeclampsia (Acute) Recurrent acute pancreatitis (Acute) KIM (acute kidney injury) (Acute) Hypertension complicating in third trimester (Acute) High-risk in third trimester (Acute) Diabetes in (Acute) History of pre-eclampsia (Acute) Acute pancreatitis (Resolved) Hypertension affecting in second trimester (Resolved) Supervision of high risk in second trimester (Resolved) 22-year-old female with necrotizing pancreatitis 1. Patient reports worsening of her abdominal pain she has been on narcotics every 4 hours. She reports that her abdominal pain is worsening. Recheck white count in the morning. It was elevated today but this may be due to a line infection versus pancreatic abscess. If it continues to rise tomorrow and recommend CAT scan to check for air bubbles or air fluid collections in the pancreas. This would have to be done with oral contrast only due to her acute kidney injury. 2. Dialysis catheter-patient has a temporary right IJ dialysis catheter in place now. I asked that after dialysis tomorrow the catheter be removed so that my partner, Dr. Ogden, can place a tunneled right dialysis catheter on Subhash. 3. Hold off on diet until patient's abdominal pain is improving. She is probably still okay to have clear liquids. Durga Savage MD Pager: [facility] [address] [place] [address] [address] [place] [address] Office:
[2017-09-27 17:06] LABS: Bedside Glucose 85 mg/dL (70-110)
[2017-09-27 20:52] VITALS: BP 127/67; PULSE 92; RESP 20; TEMP 37.1; O2SAT 94
[2017-09-27 23:05] LABS: Bedside Glucose 83 mg/dL (70-110)
[2017-09-28 03:00] VITALS: BP 108/58; PULSE 86; RESP 18; TEMP 37.3; O2SAT 94
[2017-09-28] MEDS: HYDROmorphone 2 MG TABLET PO ×4 (03:12→18:14)
[2017-09-28] MEDS: HYDROmorphone 1 MG/ML Syringe IV ×3 (04:15→15:41)
[2017-09-28] MEDS: 0.9% NaCl Peripheral Flush Adult/Peds IV ×4 (04:15→18:15)
[2017-09-28 06:20] LABS: Bedside Glucose 108 mg/dL (70-110)
[2017-09-28 06:25] LABS: Anion Gap 14 (5-15); BUN 52 mg/dL (7-18); BUN/Creat Ratio 7.2 RATIO (10-20); Calcium,Total 7.4 mg/dL (8.5-10.1); Chloride 98 mmol/L (98-107); Creatinine, Serum 7.26 mg/dL (0.55-1.02); EST Glomerular Filtration Rate 8 mL/min (>60); Est Glom Filt Rate - Afr Amer 9 mL/min (>60); Estimated Creatinine Clearance 10.05 ml/min; Glucose 99 mg/dL (74-106); Potassium 3.7 mmol/L (3.5-5.1); Sodium Level 136 mmol/L (136-145)
[2017-09-28 06:36] LABS: Hematocrit 24.6 % (37-47); Hemoglobin 7.6 g/dl (12.0-15.0); Mean Corp Hgb Conc 30.9 g/gl (32-36); Mean Corpuscular Hgb 25.5 pg (27.0-32.0); Mean Corpuscular Volume 82.6 fL (81-99); Mean Platelet Vol. 9.6 fl (6.2-12.0); Platelet Count 288 K/mm3 (150-450); RBC Distribution Width CV 16.3 % (11.6-14.6); RBC Distribution Width SD 47.9 fl (35.1-43.9); Red Blood Count 2.98 M/mm3 (4.2-5.4); White Blood Count 18.2 K/mm3 (4.4-11.0)
[2017-09-28 06:47] LABS: Differential Indicated MANUAL DIFF; POSITIVE COUNT YES; POSITIVE DIFFERENTIAL NO; POSITIVE MORPHOLOGY YES
[2017-09-28 06:59] LABS: Eosinophil 2 % (0-5); Lymphocyte 3 % (19-41); Metamyelocyte 1 % (0-1); Monocyte 2 % (0-10); Myelocyte 1 (0-0); Neutrophil-Band 6 % (0-5); Neutrophil-Segmented 85 % (47-70); Platelet Estimate ADEQUATE (ADEQ); Red Cell Morphology NORM C+C NORMAL (NORM C&C); Total Cells Counted 100 (MANUAL DIFF)
[2017-09-28 07:00] LABS: Absolute Lymphocyte Count 0.55 X10^3/ul (0.83-4.51); Absolute Neutrophil Count 16.6 X10^3/uL (2.0-7.7); Lymphocyte # 0.55 X10^3/ul (4.0); Neutrophil # 16.56 X10^3/uL (2.7-7.7); Toxic Granulation 1+; Vacuolated Cells 1+
--- NOTE | 2017-09-28 07:22 | CT_ITS ---
STUDY: CT ABDOMEN AND PELVIS WITHOUT CONTRAST REASON FOR EXAM: Female, 22 years old. Increasing abdominal pain and white cell count. Recurrent acute pancreatitis. RADIATION DOSAGE (If Supplied By Facility): CTDIvol = ( 24.18 ) mGy, DLP = ( 1389.41 ) mGycm TECHNIQUE: Transaxial images were obtained from the dome of the diaphragm to the symphysis pubis without oral contrast, and without intravenous contrast. Sagittal and coronal images were reconstructed. Individualized dose optimization techniques were used for this CT. COMPARISON: Comparison is made with prior study dated September 21, 2017. FINDINGS: There now is evidence of a small right pleural effusion with underlying infiltration and/or atelectasis. Atelectasis at the left lung base as well. Diffuse ascites. The visualized portions of the heart are within normal limits. Normal liver. Multiple hyperdensities within the gallbladder lumen most likely secondary to multiple small gallstones. Normal spleen. Diffuse enlargement of the pancreas with a marked degree of peripancreatic inflammatory changes and phlegmon formation. This extends into the root of the mesentery. There has been progression as compared to prior study. Normal bilateral adrenal glands. Normal right kidney. Normal left kidney. Fluid is seen in the pararenal spaces bilaterally worse on the right side. Normal visualized stomach. Normal small intestine. Normal colon. The appendix is visualized and appears normal. Normal abdominal aorta. Normal inferior vena cava. Normal retroperitoneum. Normal urinary bladder. Pelvic fluid. Normal abdominal wall. Normal osseous structures. CT/Abdomen/Pel W ORAL Cont Only IMPRESSION: Right pleural effusion with progressive right infiltration and/or atelectasis. Atelectatic changes at the left lung base. Progressive inflammation of the pancreas and peripancreatic regions with phlegmons. Diffuse ascites. Electronically Signed: Popeye Nichols MD at 10:27 EDT Tel [phone], Service support ,
--- NOTE | 2017-09-28 08:01 | PCM.PN.SRG ---
Patient Problems: Active and Suspected Problems (Last Reviewed 07/25/17 @ 14:54 by Sydni Chen) Recurrent acute pancreatitis (Acute) KIM (acute kidney injury) (Acute) Subjective: The patient reports her abdominal pain has worsened since yesterday. She is still taking continuous oral narcotics. She does not have any nausea or vomiting. - Physical Exam General: Alert, Oriented x3 Neck: No JVD Lungs: Normal air movement Cardiovascular: Regular rate, Regular Rhythm Abdomen: Soft, Tender - Tender in the epigastric region with no guarding. Vital Signs Temp Pulse Resp BP Pulse Ox 99.2 F H 86 18 108/58 L 94 09/28/17 03:00 09/28/17 03:00 09/28/17 03:00 09/28/17 03:00 09/28/17 03:00 Oxygen Flow Rate (L/min) 2 Oxygen Delivery Method Nasal Cannula Weight: 265 lb 10.512 oz Body Mass Index (BMI) 40.9 Intake and Output for Last 24 Hours 09/26/17 09/27/17 09/28/17 23:59 23:59 23:59 Intake Total 1640 / 1640 1055 / 1055 1094 / 1094 Output Total 2135 / 2135 70 / 70 25 / 25 Balance -495 / -495 985 / 985 1069 / 1069 Microbiology Past 72 Hours 09/27/17 16:35 Stool Occult Blood (BILLY) - Final Stool 09/22/17 13:50 Blood Culture - Final Blood Culture (Wb) - Left Hand No growth in 5 days. 09/22/17 14:05 Blood Culture - Final Blood Culture (Wb) - Right Hand No growth in 5 days. Laboratory Tests Past 24 Hrs 09/27/17 09/27/17 09/28/17 06:35 14:30 05:45 WBC 18.2 H RBC 2.98 L Hgb 7.6 L Hct 24.6 L MCV 82.6 MCH 25.5 L MCHC 30.9 L RDW 16.3 H RDW Differential 47.9 H Plt Count 288 MPV 9.6 Neut % (Auto) Not Reportable Absolute Neuts (auto) 16.6 H Absolute Lymphs (auto) 0.55 L Total Counted 100 Neutrophils % (Manual) 85 H Band Neutrophils % 6 H Lymphocytes % (Manual) 3 L Monocytes % (Manual) 2 Eosinophils % (Manual) 2 Metamyelocytes % 1 Myelocytes % 1 H Differential Comment 1+ Diff Path Review May foll Toxic Granulation 1+ Platelet Estimate ADEQUATE RBC Morphology NORM C+C Sodium Potassium Chloride Carbon Dioxide Anion Gap BUN Creatinine Estim Creat Clear Calc Est GFR (MDRD) Af Amer Est GFR (MDRD) Non-Af BUN/Creatinine Ratio Glucose Calcium Iron 12 L TIBC 191 L Iron Saturation 6.3 L Urine Color Brown Urine Clarity Turbid Urine pH 6.5 Ur Specific [place] 1.020 Urine Protein 500 H Urine Glucose (UA) Normal Urine Ketones 5 H Urine Occult Blood 250 H Urine Nitrite Negative Urine Bilirubin 3 H Urine Urobilinogen Normal Ur Leukocyte Esterase 500 H Urine RBC 25-50 SEEN Urine WBC 50-100 SEEN Ur Squamous Epith Cells 0-5 SEEN Urine Bacteria 2+ Urine Mucus 0 SEEN Urine Yeast 2+ 09/28/17 05:45 WBC RBC Hgb Hct MCV MCH MCHC RDW RDW Differential Plt Count MPV Neut % (Auto) Absolute Neuts (auto) Absolute Lymphs (auto) Total Counted Neutrophils % (Manual) Band Neutrophils % Lymphocytes % (Manual) Monocytes % (Manual) Eosinophils % (Manual) Metamyelocytes % Myelocytes % Differential Comment Diff Path Review Toxic Granulation Platelet Estimate RBC Morphology Sodium 136 Potassium 3.7 Chloride 98 Carbon Dioxide 24.0 Anion Gap 14 BUN 52 H Creatinine 7.26 H Estim Creat Clear Calc 10.05 Est GFR (MDRD) Af Amer 9 L Est GFR (MDRD) Non-Af 8 L BUN/Creatinine Ratio 7.2 L Glucose 99 Calcium 7.4 L Iron TIBC Iron Saturation Urine Color Urine Clarity Urine pH Ur Specific [place] Urine Protein Urine Glucose (UA) Urine Ketones Urine Occult Blood Urine Nitrite Urine Bilirubin Urine Urobilinogen Ur Leukocyte Esterase Urine RBC Urine WBC Ur Squamous Epith Cells Urine Bacteria Urine Mucus Urine Yeast POC Glucose 09/28/17 09/27/17 09/27/17 06:12 22:54 16:04 POC Glucose 108 83 85 09/27/17 11:31 POC Glucose 133 H Medical Necessity - Tobacco Use Smoking Status: Never smoker Tobacco Use: Non-smoker Assessment/Plan All Active Problems (Last Reviewed 07/25/17 @ 14:54 by Sydni Chen) Severe preeclampsia (Acute) Recurrent acute pancreatitis (Acute) KIM (acute kidney injury) (Acute) Hypertension complicating in third trimester (Acute) High-risk in third trimester (Acute) Diabetes in (Acute) History of pre-eclampsia (Acute) Acute pancreatitis (Resolved) Hypertension affecting in second trimester (Resolved) Supervision of high risk in second trimester (Resolved) 22-year-old female with necrotizing pancreatitis 1. The patient reports her abdominal pain has worsened. Her white count has gone up for the last 2 days as well. I will get a CAT scan with oral contrast only to see if there are any signs of infection of her pancreas. 2. This also may represent a line infection she has had an indwelling catheter for several days. She also has an indwelling Inf[place] but she had a UA yesterday which was normal. 3. Continue n.p.o. with sips of clears. Durga Savage MD Pager: [facility] [address] [place] [address], [address] [place] [address] Office:
[2017-09-28 08:57] VITALS: BP 133/58; PULSE 83; RESP 18; TEMP 36.8; O2SAT 98
[2017-09-28] MEDS: Famotidine 20 MG Tablet PO (08:58)
[2017-09-28] MEDS: Labetalol 100 MG Tablet PO (08:58)
[2017-09-28] MEDS: Sertraline 100 MG Tablet PO (08:58)
[2017-09-28 09:00] LABS: Lipase 1032 U/L (73-393)
[2017-09-28] MEDS: Ondansetron 4 MG/2 ML Vial IV (09:02)
[2017-09-28] MEDS: Ceftriaxone 1 GM/50 ML BAG IV (10:17)
[2017-09-28 10:47] LABS: Pathologist Review Reviewed
--- NOTE | 2017-09-28 11:10 | PCM.PN.BLA ---
Progress Note The patients CT results are noted. There has been progression of pancreatitis and her lipase is still over 1000. She may require TPN for nutrition. The CT also suggested gallstones. These may have developed in the last year as her last US of her gallbladder had no gallstones. This recurrence may be gallstone pancreatitis. When her ascites resolves I will get a repeat US of gallstone and she can have laparoscopic cholecystectomy once pancreatitis has fully resolved. Pt also has atalectasis and effusion in right lung with possible infiltration. She may require antibiotics for pneumonia. There are phlegmons in the pancreas but no sign of isael infection. There are no air fluid levels or air bubbles in the pancreas. Pt will have tunnelled dialysis catheter placed sunday by Dr Ogden. Please remove temp dialysis catheter today after dialysis complete. I will be out next week, Dr Moser will be covering for me this . Clinical Impression(s) from Imaging Studies Abdomen CT 09/28/17 07:22 IMPRESSION: Right pleural effusion with progressive right infiltration and/or atelectasis. Atelectatic changes at the left lung base. Progressive inflammation of the pancreas and peripancreatic regions with phlegmons. Diffuse ascites. Electronically Signed: Popeye Nichols MD at 10:27 EDT Tel [phone], Service support , Durga Savage MD
--- NOTE | 2017-09-28 11:14 | PN_ITS ---
Progress Note The patients CT results are noted. There has been progression of pancreatitis and her lipase is still over 1000. She may require TPN for nutrition. The CT also suggested gallstones. These may have developed in the last year as her last US of her gallbladder had no gallstones. This recurrence may be gallstone pancreatitis. When her ascites resolves I will get a repeat US of gallstone and she can have laparoscopic cholecystectomy once pancreatitis has fully resolved. Pt also has atalectasis and effusion in right lung with possible infiltration. She may require antibiotics for pneumonia. There are phlegmons in the pancreas but no sign of isael infection. There are no air fluid levels or air bubbles in the pancreas. Pt will have tunnelled dialysis catheter placed sunday by Dr Ogden. Please remove temp dialysis catheter today after dialysis complete. I will be out next week, Dr Moser will be covering for me this . Clinical Impression(s) from Imaging Studies Abdomen CT 09/28/17 07:22 IMPRESSION: Right pleural effusion with progressive right infiltration and/or atelectasis. Atelectatic changes at the left lung base. Progressive inflammation of the pancreas and peripancreatic regions with phlegmons. Diffuse ascites. Electronically Signed: Popeye Nichols MD at 10:27 EDT Tel [phone], Service support , Durga Savage MD
[2017-09-28 11:49] VITALS: O2SAT 93
[2017-09-28 11:55] LABS: Bedside Glucose 112 mg/dL (70-110)
--- NOTE | 2017-09-28 13:43 | PCM.PROGNOTE ---
Patient Problems: Active and Suspected Problems (Last Reviewed 07/25/17 @ 14:54 by Sydni Chen) Recurrent acute pancreatitis (Acute) KIM (acute kidney injury) (Acute) Subjective: Patient seen and examined on return from radiology following her repeat CT of the abdomen today. Her primary complaint was at that point of worsening of her middle, slightly right-sided abdominal pain along with severe mid back pain. She stated that it worsened when she was departing radiology. She also had some nausea this morning without vomiting. She continues to have very minimal output from her Infante catheter. She denies fevers or chills at this point. She continues to remain n.p.o. does not feel that she is improving at all. She did have another episode of diarrhea this morning, last episode was yesterday morning as well-described as loose stools. She remains somewhat short of breath and on oxygen, no cough. - Physical Exam General: Alert, Oriented x3, Cooperative HEENT: Atraumatic, PERRLA, EOMI, Normocephalic Neck: Supple, No JVD, Negative Carotid Bruits Lungs: Clear to auscultation, Normal air movement Cardiovascular: Regular rate, No murmurs Abdomen: Bowel Sounds Present, Soft, Hypoactive Bowel Sounds, Distended, Tender Extremities: No edema, Capillary Refill Less than 3 Seconds Skin: No rashes, No breakdown Musculoskeletal: No Tenderness to Palpation of Joints or Extremities Neurological: Cranial nerves II-XII grossly intact Psych/Mental Status: Appropriate, Depressed, Alert and oriented to time, place, person, mood and affect Vital Signs Temp Pulse Resp BP Pulse Ox 98.2 F 83 18 133/58 H 93 09/28/17 08:57 09/28/17 08:57 09/28/17 08:57 09/28/17 08:57 09/28/17 11:49 Oxygen Flow Rate (L/min) 2 Oxygen Delivery Method Nasal Cannula Weight: 120.5 kg Body Mass Index (BMI) 40.9 Intake and Output for Last 24 Hours 09/26/17 09/27/17 09/28/17 23:59 23:59 23:59 Intake Total 1640 / 1640 1055 / 1055 1574 / 1574 Output Total 2135 / 2135 70 / 70 25 / 25 Balance -495 / -495 985 / 985 1549 / 1549 Microbiology Past 72 Hours 09/27/17 14:30 Urine Culture - Preliminary Urine Catheter - Catheter Yeast Like Organism 09/27/17 16:35 Stool Occult Blood (BILLY) - Final Stool 09/22/17 13:50 Blood Culture - Final Blood Culture (Wb) - Left Hand No growth in 5 days. 09/22/17 14:05 Blood Culture - Final Blood Culture (Wb) - Right Hand No growth in 5 days. Laboratory Tests Past 24 Hrs 09/27/17 09/28/17 09/28/17 14:30 05:45 05:45 WBC 18.2 H RBC 2.98 L Hgb 7.6 L Hct 24.6 L MCV 82.6 MCH 25.5 L MCHC 30.9 L RDW 16.3 H RDW Differential 47.9 H Plt Count 288 MPV 9.6 Neut % (Auto) Not Reportable Absolute Neuts (auto) 16.6 H Absolute Lymphs (auto) 0.55 L Total Counted 100 Neutrophils % (Manual) 85 H Band Neutrophils % 6 H Lymphocytes % (Manual) 3 L Monocytes % (Manual) 2 Eosinophils % (Manual) 2 Metamyelocytes % 1 Myelocytes % 1 H Differential Comment 1+ Diff Path Review Reviewed Toxic Granulation 1+ Platelet Estimate ADEQUATE RBC Morphology NORM C+C Sodium 136 Potassium 3.7 Chloride 98 Carbon Dioxide 24.0 Anion Gap 14 BUN 52 H Creatinine 7.26 H Estim Creat Clear Calc 10.05 Est GFR (MDRD) Af Amer 9 L Est GFR (MDRD) Non-Af 8 L BUN/Creatinine Ratio 7.2 L Glucose 99 Calcium 7.4 L Lipase Urine Color Brown Urine Clarity Turbid Urine pH 6.5 Ur Specific [place] 1.020 Urine Protein 500 H Urine Glucose (UA) Normal Urine Ketones 5 H Urine Occult Blood 250 H Urine Nitrite Negative Urine Bilirubin 3 H Urine Urobilinogen Normal Ur Leukocyte Esterase 500 H Urine RBC 25-50 SEEN Urine WBC 50-100 SEEN Ur Squamous Epith Cells 0-5 SEEN Urine Bacteria 2+ Urine Mucus 0 SEEN Urine Yeast 2+ 09/28/17 08:03 WBC RBC Hgb Hct MCV MCH MCHC RDW RDW Differential Plt Count MPV Neut % (Auto) Absolute Neuts (auto) Absolute Lymphs (auto) Total Counted Neutrophils % (Manual) Band Neutrophils % Lymphocytes % (Manual) Monocytes % (Manual) Eosinophils % (Manual) Metamyelocytes % Myelocytes % Differential Comment Diff Path Review Toxic Granulation Platelet Estimate RBC Morphology Sodium Potassium Chloride Carbon Dioxide Anion Gap BUN Creatinine Estim Creat Clear Calc Est GFR (MDRD) Af Amer Est GFR (MDRD) Non-Af BUN/Creatinine Ratio Glucose Calcium Lipase 1032 H Urine Color Urine Clarity Urine pH Ur Specific [place] Urine Protein Urine Glucose (UA) Urine Ketones Urine Occult Blood Urine Nitrite Urine Bilirubin Urine Urobilinogen Ur Leukocyte Esterase Urine RBC Urine WBC Ur Squamous Epith Cells Urine Bacteria Urine Mucus Urine Yeast POC Glucose 09/28/17 09/28/17 09/27/17 11:04 06:12 22:54 POC Glucose 112 H 108 83 09/27/17 16:04 POC Glucose 85 Medical Necessity - Tobacco Use Smoking Status: Never smoker Tobacco Use: Non-smoker Assessment/Plan All Active Problems (Last Reviewed 07/25/17 @ 14:54 by Sydni Chen) Severe preeclampsia (Acute) Recurrent acute pancreatitis (Acute) KIM (acute kidney injury) (Acute) Hypertension complicating in third trimester (Acute) High-risk in third trimester (Acute) Diabetes in (Acute) History of pre-eclampsia (Acute) Acute pancreatitis (Resolved) Hypertension affecting in second trimester (Resolved) Supervision of high risk in second trimester (Resolved) 1. Acute recurrent pancreatitis with necrosis - worsening of pain. CT abdomen with right pleural effusion with progressive right infiltration and/or atelectasis, atelectasis of the left lung, progressive inflammation of the pancreas and peripancreatic regions with phlegmons, diffuse ascites. Her WBCs are elevated again however this may be do an infection vs pancreatitis. Repeat lipase 1032. -Pt will be placed on TPN for nutritional support. 2. Acute anemia - iron studies deficient. Hemoccult negative. Venofer x 3. 3. New Leukocytosis unclear etiology - CXR with atelectasis, CTA with ? infiltrate, urine c/w UTI. C/s to Infectious disease. She remains afebrile. 4. KIM - renal following. Continue dialysis as directed. Cath in place with little output. Tunneled dialysis cath to be placed sunday. 5. Hyperlipidemia - risk of pancreatitis with both tricor and statins, when stable pt needs placed on statin. tricor stopped held for now. 6. Atelectasis - IS. PRN aerosols. Encourage activity/out of bed. 7. Deconditioning - PTOT. 8. Morbid obesity - pt to be placed on TPN with dietary input. 9. Prediabetes per A1C - SSI. DVT ppx: SCDs This patient was seen by Hebert Gibson PA-C under the supervision of Doctor Rivero.
--- NOTE | 2017-09-28 14:39 | PCM.PN.REN ---
Patient Problems: Active and Suspected Problems (Last Reviewed 07/25/17 @ 14:54 by Sydni Chen) Recurrent acute pancreatitis (Acute) KIM (acute kidney injury) (Acute) Subjective: Patient is complaining of severe abdominal pain. Patient had CT earlier today which showed ascites, progressive inflammation of the pancrease with perinephric phlegmon. Anuric. Seen during HD session today. - Physical Exam General: - - in distress from the abdominal pain. Patient was given dilaudid HEENT: Atraumatic Oral: Moist Mucosa Neck: Supple, No JVD Lungs: - - decrease BS over the RLL Abdomen: Obese, - - diffused abdominal tenderness. decreased BS. Extremities: Edema, - - +2 edema of LE Skin: No rashes Neurological: Cranial nerves II-XII grossly intact, Neuro grossly intact Psych/Mental Status: Anxious Vital Signs Temp Pulse Resp BP Pulse Ox 98.2 F 83 18 133/58 H 93 09/28/17 08:57 09/28/17 08:57 09/28/17 08:57 09/28/17 08:57 09/28/17 11:49 Oxygen Flow Rate (L/min) 2 Oxygen Delivery Method Nasal Cannula Weight: 120.5 kg Body Mass Index (BMI) 40.9 Intake and Output for Last 24 Hours 09/26/17 09/27/17 09/28/17 23:59 23:59 23:59 Intake Total 1640 / 1640 1055 / 1055 1574 / 1574 Output Total 2135 / 2135 70 / 70 25 / 25 Balance -495 / -495 985 / 985 1549 / 1549 Microbiology Past 72 Hours 09/27/17 14:30 Urine Culture - Preliminary Urine Catheter - Catheter Yeast Like Organism 09/27/17 16:35 Stool Occult Blood (BILLY) - Final Stool 09/22/17 13:50 Blood Culture - Final Blood Culture (Wb) - Left Hand No growth in 5 days. 09/22/17 14:05 Blood Culture - Final Blood Culture (Wb) - Right Hand No growth in 5 days. Laboratory Tests Past 24 Hrs 09/27/17 09/28/17 09/28/17 14:30 05:45 05:45 WBC 18.2 H RBC 2.98 L Hgb 7.6 L Hct 24.6 L MCV 82.6 MCH 25.5 L MCHC 30.9 L RDW 16.3 H RDW Differential 47.9 H Plt Count 288 MPV 9.6 Neut % (Auto) Not Reportable Absolute Neuts (auto) 16.6 H Absolute Lymphs (auto) 0.55 L Total Counted 100 Neutrophils % (Manual) 85 H Band Neutrophils % 6 H Lymphocytes % (Manual) 3 L Monocytes % (Manual) 2 Eosinophils % (Manual) 2 Metamyelocytes % 1 Myelocytes % 1 H Differential Comment 1+ Diff Path Review Reviewed Toxic Granulation 1+ Platelet Estimate ADEQUATE RBC Morphology NORM C+C Sodium 136 Potassium 3.7 Chloride 98 Carbon Dioxide 24.0 Anion Gap 14 BUN 52 H Creatinine 7.26 H Estim Creat Clear Calc 10.05 Est GFR (MDRD) Af Amer 9 L Est GFR (MDRD) Non-Af 8 L BUN/Creatinine Ratio 7.2 L Glucose 99 Calcium 7.4 L Lipase Urine Color Brown Urine Clarity Turbid Urine pH 6.5 Ur Specific [place] 1.020 Urine Protein 500 H Urine Glucose (UA) Normal Urine Ketones 5 H Urine Occult Blood 250 H Urine Nitrite Negative Urine Bilirubin 3 H Urine Urobilinogen Normal Ur Leukocyte Esterase 500 H Urine RBC 25-50 SEEN Urine WBC 50-100 SEEN Ur Squamous Epith Cells 0-5 SEEN Urine Bacteria 2+ Urine Mucus 0 SEEN Urine Yeast 2+ 09/28/17 08:03 WBC RBC Hgb Hct MCV MCH MCHC RDW RDW Differential Plt Count MPV Neut % (Auto) Absolute Neuts (auto) Absolute Lymphs (auto) Total Counted Neutrophils % (Manual) Band Neutrophils % Lymphocytes % (Manual) Monocytes % (Manual) Eosinophils % (Manual) Metamyelocytes % Myelocytes % Differential Comment Diff Path Review Toxic Granulation Platelet Estimate RBC Morphology Sodium Potassium Chloride Carbon Dioxide Anion Gap BUN Creatinine Estim Creat Clear Calc Est GFR (MDRD) Af Amer Est GFR (MDRD) Non-Af BUN/Creatinine Ratio Glucose Calcium Lipase 1032 H Urine Color Urine Clarity Urine pH Ur Specific [place] Urine Protein Urine Glucose (UA) Urine Ketones Urine Occult Blood Urine Nitrite Urine Bilirubin Urine Urobilinogen Ur Leukocyte Esterase Urine RBC Urine WBC Ur Squamous Epith Cells Urine Bacteria Urine Mucus Urine Yeast POC Glucose 09/28/17 09/28/17 09/27/17 11:04 06:12 22:54 POC Glucose 112 H 108 83 09/27/17 16:04 POC Glucose 85 Medical Necessity - Tobacco Use Smoking Status: Never smoker Tobacco Use: Non-smoker Assessment/Plan All Active Problems (Last Reviewed 07/25/17 @ 14:54 by Sydni Chen) Severe preeclampsia (Acute) Recurrent acute pancreatitis (Acute) KIM (acute kidney injury) (Acute) Hypertension complicating in third trimester (Acute) High-risk in third trimester (Acute) Diabetes in (Acute) History of pre-eclampsia (Acute) Acute pancreatitis (Resolved) Hypertension affecting in second trimester (Resolved) Supervision of high risk in second trimester (Resolved) 1- KIM due to ATN from pancreatitis and contrast exposure Normal Cr at baseline. Anuric . No recovery of kidney function. Cr is still significantly rising. Patient is now HD dependent. HD was started 09/22/17 HD session today : BQ 400 DQ 600 UF 3 L Will continue to monitor kidney function recovery Keep MAP > 65 Avoid IV contrast 2- Hypocalcemia . most probably from pancreatitis. Improved 3- Necrotizing pancreatitis . Worsening today. Patient has severe abdominal pain. CT finding as above. Will defer the management to the primary team/Surgery team Renal team will continue to follow Joseph Gomez MD [phone]
--- NOTE | 2017-09-28 14:43 | PCM.HP.ID ---
Problem List (1) Recurrent acute pancreatitis Status: Acute Reason for Consult: leukocytosis Consulted by: Dr. Rivero History of Present Illness: The patient is a 22 year old F with prior episode of pancreatitis who presented 09/20 with acute onset of severe upper abd pain with n/v. No fever or chills. Admitted, surgery following, started on HD for KIM. Now in past 2 days, worsening abd pain and leukocytosis. Mild SOB; has pain with deep breaths. No sputum. Some loose stool. No dysuria. No issues with picc or HD line. Given dose of ceftriaxone today. Repeat CT done this AM. Full ROS performed and neg except as noted above - Medical History Past Medical History (Chronic Problems): Chronic Problems (Last Reviewed 07/25/17 @ 14:54 by Sydni Chen) Depression (Chronic) zoloft Type 2 diabetes mellitus (Chronic) Migraine headache (Chronic) Hyperlipidemia (Chronic) Allergies/Adverse Reactions: Allergies No Known Allergies Allergy (Verified 09/20/17 03:46) Home Medications: Ambulatory Orders Medication Instructions Recorded Sertraline HCl [Zoloft] 100 mg PO QHS 07/02/17 Labetalol [Trandate (Beta Jaja)] 100 mg PO BID 07/12/17 Metformin HCl [Glucophage] 500 mg PO BIDCM #60 tab 07/13/17 - Social History SMOKING STATUS:: Never smoker Vital Signs Temp Pulse Resp BP Pulse Ox 98.2 F 83 18 133/58 H 93 09/28/17 08:57 09/28/17 08:57 09/28/17 08:57 09/28/17 08:57 09/28/17 11:49 Oxygen Flow Rate (L/min) 2 Oxygen Delivery Method Nasal Cannula Weight: 120.5 kg Body Mass Index (BMI) 40.9 Microbiology Past 72 Hours 09/27/17 14:30 Urine Culture - Preliminary Urine Catheter - Catheter Yeast Like Organism 09/27/17 16:35 Stool Occult Blood (BILLY) - Final Stool 09/22/17 13:50 Blood Culture - Final Blood Culture (Wb) - Left Hand No growth in 5 days. 09/22/17 14:05 Blood Culture - Final Blood Culture (Wb) - Right Hand No growth in 5 days. Laboratory Tests Past 24 Hrs 09/27/17 09/28/17 09/28/17 14:30 05:45 05:45 WBC 18.2 H RBC 2.98 L Hgb 7.6 L Hct 24.6 L MCV 82.6 MCH 25.5 L MCHC 30.9 L RDW 16.3 H RDW Differential 47.9 H Plt Count 288 MPV 9.6 Neut % (Auto) Not Reportable Absolute Neuts (auto) 16.6 H Absolute Lymphs (auto) 0.55 L Total Counted 100 Neutrophils % (Manual) 85 H Band Neutrophils % 6 H Lymphocytes % (Manual) 3 L Monocytes % (Manual) 2 Eosinophils % (Manual) 2 Metamyelocytes % 1 Myelocytes % 1 H Differential Comment 1+ Diff Path Review Reviewed Toxic Granulation 1+ Platelet Estimate ADEQUATE RBC Morphology NORM C+C Sodium 136 Potassium 3.7 Chloride 98 Carbon Dioxide 24.0 Anion Gap 14 BUN 52 H Creatinine 7.26 H Estim Creat Clear Calc 10.05 Est GFR (MDRD) Af Amer 9 L Est GFR (MDRD) Non-Af 8 L BUN/Creatinine Ratio 7.2 L Glucose 99 Calcium 7.4 L Lipase Urine Color Brown Urine Clarity Turbid Urine pH 6.5 Ur Specific [place] 1.020 Urine Protein 500 H Urine Glucose (UA) Normal Urine Ketones 5 H Urine Occult Blood 250 H Urine Nitrite Negative Urine Bilirubin 3 H Urine Urobilinogen Normal Ur Leukocyte Esterase 500 H Urine RBC 25-50 SEEN Urine WBC 50-100 SEEN Ur Squamous Epith Cells 0-5 SEEN Urine Bacteria 2+ Urine Mucus 0 SEEN Urine Yeast 2+ 09/28/17 08:03 WBC RBC Hgb Hct MCV MCH MCHC RDW RDW Differential Plt Count MPV Neut % (Auto) Absolute Neuts (auto) Absolute Lymphs (auto) Total Counted Neutrophils % (Manual) Band Neutrophils % Lymphocytes % (Manual) Monocytes % (Manual) Eosinophils % (Manual) Metamyelocytes % Myelocytes % Differential Comment Diff Path Review Toxic Granulation Platelet Estimate RBC Morphology Sodium Potassium Chloride Carbon Dioxide Anion Gap BUN Creatinine Estim Creat Clear Calc Est GFR (MDRD) Af Amer Est GFR (MDRD) Non-Af BUN/Creatinine Ratio Glucose Calcium Lipase 1032 H Urine Color Urine Clarity Urine pH Ur Specific [place] Urine Protein Urine Glucose (UA) Urine Ketones Urine Occult Blood Urine Nitrite Urine Bilirubin Urine Urobilinogen Ur Leukocyte Esterase Urine RBC Urine WBC Ur Squamous Epith Cells Urine Bacteria Urine Mucus Urine Yeast - Other Studies Radiology: [] reviewed Other Studies: [] Route of nutrition/ use of supplements: [] Nutritional Intake: [] IV Site: [] Infante Catheter: [] - Physical Exam General: Alert, Oriented x3, Cooperative, No apparent distress HEENT: Atraumatic, PERRLA, EOMI Neck: Supple, No Nodes Lungs: Clear to auscultation, Normal air movement Cardiovascular: Regular rate, Regular Rhythm Abdomen: Soft, Non-Distended, Tender Extremities: Edema Skin: No rashes IV Site: PICC, Central Line, without redness Musculoskeletal: No Tenderness to Palpation of Joints or Extremities Neurological: Cranial nerves II-XII grossly intact - Assessment/Plan Antibiotics: [] Assessment/Plan: [] Active and Suspected Problems (Last Reviewed 07/25/17 @ 14:54 by Sydni Chen) Recurrent acute pancreatitis (Acute) KIM (acute kidney injury) (Acute) With increasing abd pain and new phlegmons around pancreas on CT, suspicion of abd as most likely source of rising wbc. Concern for developing infection. UA with pyuria and Ucx with growth of yeast. She is at risk for pneumonia and line infection. Bcx pending, but with no fever, would not start empiric vanc. Will change ceftriaxone to zosyn for broad GI hansel coverage. Will follow, thank you, d/w Dr. Rivero.
[2017-09-28 14:50] VITALS: BP 149/75; PULSE 94; RESP 37; TEMP 36.8
--- NOTE | 2017-09-28 15:21 | PCA ---
Faxed pt demographic's to [phone] per primary RN Marilee
--- NOTE | 2017-09-28 15:56 | PCM.DC.SUM ---
Discharge Date and Diagnosis - Problem List Patient Problems: Active and Suspected Problems (Last Reviewed 07/25/17 @ 14:54 by Sydni Chen) Recurrent acute pancreatitis (Acute) KIM (acute kidney injury) (Acute) Date of Admission: 09/20/17 Date of Discharge: 09/28/17 - Primary Discharge Diagnosis Active and Suspected Problems (Last Reviewed 07/25/17 @ 14:54 by Sydni Chen) Recurrent acute pancreatitis, necrotizing (Acute) IKM (acute kidney injury) (Acute) T2DM Iron deficiency anemia Leukocytosis unclear etiology possible developing UTI possible developing pna Ascites Morbid obesity Hypocalcemia 2/2 pancreatitis HLD, hypertriglyceridemia Atelectasis Deconditioning - Secondary Discharge Diagnosis Chronic Problems (Last Reviewed 07/25/17 @ 14:54 by Sydni Chen) Depression (Chronic) zoloft Type 2 diabetes mellitus (Chronic) Migraine headache (Chronic) Hyperlipidemia (Chronic) Hospital Course and Treatment Imaging Results: CT abd w contrast: IMPRESSION Acute interstitial pancreatitis (with fluid collection) involving mainly the pancreatic head with nonenhancing linear and curvilinear areas within the inflamed pancreatic parenchyma. These areas most likely represent necrosis A 2.7 cm left ovarian cyst. CT/Abdomen WITH IV Contrast IMPRESSION: Acute pancreatitis with diffuse peripancreatic and perinephric infiltration in keeping with progression of the acute pancreatitis. Increased density seen within the gallbladder lumen. Bibasilar atelectasis and/or infiltrate. RAD/Chest 1 View (Portable) IMPRESSION: Very poor inspiration. No acute cardiopulmonary disease process is seen. RAD/Chest 1 View (Portable) IMPRESSION: Limited by technique with low lung volume and interstitial crowding. No evidence of focal consolidation. RAD/CXR for Line Placement IMPRESSION: Satisfactory position of the right-sided central line. No pneumothorax. Low lung volumes. Grossly clear lungs. RAD/Chest PA and Lateral IMPRESSION: Decreased lung volumes. Increased markings at the lung bases suggest bibasilar atelectasis slightly worse on the right side. CT/Abdomen/Pel W ORAL Cont Only IMPRESSION: Right pleural effusion with progressive right infiltration and/or atelectasis. Atelectatic changes at the left lung base. Progressive inflammation of the pancreas and peripancreatic regions with phlegmons. Diffuse ascites. Consults: Gen Surgery: Janette Nephrology: Jason Infectious Disease: Bharti Operations: None Procedures: Central line placement Summary of Care Provided: Physical exam on day of discharge: See daily progress note Hospital course: The patient is a 22 year old F with a prior hx of pancreatitis of unknown etiology, with a hx of HLD, DMt2, HTN, anxiety/depression, who presented to the ER with increased abdominal pain, nausea, and vomiting, worsening over the past week. In the past episode in 2017 she had a pseudocyst for which she went to [facility] for management. This time, she was nine weeks and also had started an estrogen patch 3 weeks prior. She had a CT of the abdomen showing pancreatitis with necrosis and a 2.7cm left ovarian cyst. She denied alcohol and use and had no GB issues. She was not on any diabetic medications that would cause Pancreatitis. She does have significant hypertriglyceridemia. She was admitted to the medical floor and initially started on zosyn. Surgery was consulted. She was made NPO. She developed severe KIM felt to be ATN 2/2 the pancreatitis and IV contrast exposure. Nephrology was consulted. She required dialysis and a temporary dialysis cath was placed. A taveras catheter was placed for accurate I/Os and she was found to be anuric. She had some leukocytosis on presentation which resolved by the 2nd day so abx were discontinued. She later developed worsening abdominal pain, and developed significant leukocytosis up to 18k - the source of which is unclear. She has remained afebrile. CXR showed atelectasis. CT showed possible pna, and urinalysis showed pyuria and yeast. She developed progressively worsening microcytic anemia and was iron deficient. To date she has not received blood, has received 2 units venofer. A repeat CT was performed which showed worsening of the pancreatitis. ID was consulted. She was restarted on abx with rocephin x 1 dose then changed to IV zosyn therapy for gut coverage. We planned to start TPN at this point, however it was decided that with the patients worsening renal function, abdominal pain that was very difficult to control, and worsening CT findings that, and per discussion with surgery and nephrology, she would benefit from transfer to a higher level of care. She refused to consider going back to [facility]. She was accepted at [facility] and transferred there in guarded condition. This patient was seen by Hebert Gibson PA-C under the supervision of Doctor Josefa. [] Discharge Diet: - - As directed by receiving facility Discharge Activity: - - As directed by receiving facility Home Medications: Medications to take at Discharge Sertraline HCl [Zoloft] 100 mg PO QHS 07/02/17 Labetalol [Trandate (Beta Jaja)] 100 mg PO BID 07/12/17 Metformin HCl [Glucophage] 500 mg PO BIDCM #60 tab 07/13/17 Primary Care Physician: Bryant Cardona MD [Primary Care Provider] - Please follow up with your Primary Care Physician in: As directed Disposition: Acute care Hospital Minutes spent on discharge:: 45 Patient Condition:: Guarded Medical Necessity - Tobacco Use Smoking Status: Never smoker Tobacco Use: Non-smoker Meaningful Use Info Meaningful Use Diagnoses (Choose all that apply): None applicable
--- NOTE | 2017-09-28 16:23 | DS.PCM_ITS ---
Discharge Date and Diagnosis - Problem List Patient Problems: Active and Suspected Problems (Last Reviewed 07/25/17 @ 14:54 by Sydni Chen) Recurrent acute pancreatitis (Acute) KIM (acute kidney injury) (Acute) Date of Admission: 09/20/17 Date of Discharge: 09/28/17 - Primary Discharge Diagnosis Active and Suspected Problems (Last Reviewed 07/25/17 @ 14:54 by Sydni Chen) Recurrent acute pancreatitis, necrotizing (Acute) KIM (acute kidney injury) (Acute) T2DM Iron deficiency anemia Leukocytosis unclear etiology possible developing UTI possible developing pna Ascites Morbid obesity Hypocalcemia 2/2 pancreatitis HLD, hypertriglyceridemia Atelectasis Deconditioning - Secondary Discharge Diagnosis Chronic Problems (Last Reviewed 07/25/17 @ 14:54 by Sydni Chen) Depression (Chronic) zoloft Type 2 diabetes mellitus (Chronic) Migraine headache (Chronic) Hyperlipidemia (Chronic) Hospital Course and Treatment Imaging Results: CT abd w contrast: IMPRESSION Acute interstitial pancreatitis (with fluid collection) involving mainly the pancreatic head with nonenhancing linear and curvilinear areas within the inflamed pancreatic parenchyma. These areas most likely represent necrosis A 2.7 cm left ovarian cyst. CT/Abdomen WITH IV Contrast IMPRESSION: Acute pancreatitis with diffuse peripancreatic and perinephric infiltration in keeping with progression of the acute pancreatitis. Increased density seen within the gallbladder lumen. Bibasilar atelectasis and/or infiltrate. RAD/Chest 1 View (Portable) IMPRESSION: Very poor inspiration. No acute cardiopulmonary disease process is seen. RAD/Chest 1 View (Portable) IMPRESSION: Limited by technique with low lung volume and interstitial crowding. No evidence of focal consolidation. RAD/CXR for Line Placement IMPRESSION: Satisfactory position of the right-sided central line. No pneumothorax. Low lung volumes. Grossly clear lungs. RAD/Chest PA and Lateral IMPRESSION: Decreased lung volumes. Increased markings at the lung bases suggest bibasilar atelectasis slightly worse on the right side. CT/Abdomen/Pel W ORAL Cont Only IMPRESSION: Right pleural effusion with progressive right infiltration and/or atelectasis. Atelectatic changes at the left lung base. Progressive inflammation of the pancreas and peripancreatic regions with phlegmons. Diffuse ascites. Consults: Gen Surgery: Janette Nephrology: Jason Infectious Disease: Bharti Operations: None Procedures: Central line placement Summary of Care Provided: Physical exam on day of discharge: See daily progress note Hospital course: The patient is a 22 year old F with a prior hx of pancreatitis of unknown etiology, with a hx of HLD, DMt2, HTN, anxiety/depression, who presented to the ER with increased abdominal pain, nausea, and vomiting, worsening over the past week. In the past episode in 2017 she had a pseudocyst for which she went to [facility] for management. This time, she was nine weeks and also had started an estrogen patch 3 weeks prior. She had a CT of the abdomen showing pancreatitis with necrosis and a 2.7cm left ovarian cyst. She denied alcohol and use and had no GB issues. She was not on any diabetic medications that would cause Pancreatitis. She does have significant hypertriglyceridemia. She was admitted to the medical floor and initially started on zosyn. Surgery was consulted. She was made NPO. She developed severe KIM felt to be ATN 2/2 the pancreatitis and IV contrast exposure. Nephrology was consulted. She required dialysis and a temporary dialysis cath was placed. A taveras catheter was placed for accurate I/Os and she was found to be anuric. She had some leukocytosis on presentation which resolved by the 2nd day so abx were discontinued. She later developed worsening abdominal pain, and developed significant leukocytosis up to 18k - the source of which is unclear. She has remained afebrile. CXR showed atelectasis. CT showed possible pna, and urinalysis showed pyuria and yeast. She developed progressively worsening microcytic anemia and was iron deficient. To date she has not received blood, has received 2 units venofer. A repeat CT was performed which showed worsening of the pancreatitis. ID was consulted. She was restarted on abx with rocephin x 1 dose then changed to IV zosyn therapy for gut coverage. We planned to start TPN at this point, however it was decided that with the patients worsening renal function, abdominal pain that was very difficult to control, and worsening CT findings that, and per discussion with surgery and nephrology, she would benefit from transfer to a higher level of care. She refused to consider going back to [facility]. She was accepted at [facility] and transferred there in guarded condition. This patient was seen by Hebert Gibson PA-C under the supervision of Doctor Josefa. [] Discharge Diet: - - As directed by receiving facility Discharge Activity: - - As directed by receiving facility Home Medications: Medications to take at Discharge Sertraline HCl [Zoloft] 100 mg PO QHS 07/02/17 Labetalol [Trandate (Beta Jaja)] 100 mg PO BID 07/12/17 Metformin HCl [Glucophage] 500 mg PO BIDCM #60 tab 07/13/17 Primary Care Physician: Bryant Cardona MD [Primary Care Provider] - Please follow up with your Primary Care Physician in: As directed Disposition: Acute care Hospital Minutes spent on discharge:: 45 Patient Condition:: Guarded Medical Necessity - Tobacco Use Smoking Status: Never smoker Tobacco Use: Non-smoker Meaningful Use Info Meaningful Use Diagnoses (Choose all that apply): None applicable
[2017-09-28] MEDS: Piperacil/Tazobactam 3.375 GM/50 ML ML IV (16:28)
[2017-09-28 16:56] LABS: Bedside Glucose 93 mg/dL (70-110)
--- NOTE | 2017-09-28 18:03 | NURSING ---
Gave report to an RN in [facility] at this time. notified that pt is being transferred in 20 minutes.
[2017-09-28 18:44] VITALS: BP 137/76; PULSE 81; RESP 30; TEMP 37.2
--- NOTE | 2017-09-28 18:45 | DIALYSIS ---
HD discontinued after 2 hours and 22 min of tx per Dr. Gomez. Heart rate of 104. Respirations of 40. Temp 99.0. PT is going to be transferred to [facility]. UF of 1312ml. Used Right IJ catheter. The catheter is very positional. Catheter was closed with heparin per fill volume. See tx sheet for more details. Report was given to MONICA Hunt.
== END 2017-09-28 18:29 | disposition short-term general hospital (02) | DRG 204 ==
LOC: ED 04:34 → MS3 06:48 → PCU 09-24 10:40 → ICU 09-24 10:40 → MS3 09-24 20:00
PROVIDERS: Internal Medicine; Internal Medicine Critical Care Medicine; Internal Medicine Nephrology; Nurse Practitioner Family; Physician Assistant; Surgery; Admitting Provider Internal Medicine; Emergency Provider Emergency Medicine; Family Provider Family Medicine; PCP Family Medicine; Visit Provider Internal Medicine
DX: K85.91 Acute pancreatitis with uninfected necrosis, unspecified (principal); N17.0 Acute kidney failure with tubular necrosis; J98.11 Atelectasis; N39.0 Urinary tract infection, site not specified; J18.9 Pneumonia, unspecified organism; R18.8 Other ascites; E11.9 Type 2 diabetes mellitus without complications; Z79.84 Long term (current) use of oral hypoglycemic drugs; D50.9 Iron deficiency anemia, unspecified; E78.1 Pure hyperglyceridemia; E66.01 Morbid (severe) obesity due to excess calories; Z68.41 Body mass index [BMI] 40.0-44.9, adult; E83.51 Hypocalcemia; E78.5 Hyperlipidemia, unspecified; F32.9 Major depressive disorder, single episode, unspecified; G43.909 Migraine, unspecified, not intractable, without status migrainosus; T50.8X5A Adverse effect of diagnostic agents, initial encounter
CPT/HCPCS: 36415; 36569; 71045; 71046; 74160; 74176; 74177; 80047; 80048; 80053; 80061; 80076; 81001; 81025; 82040; 82274; 82310; 82570; 82803; 82962; 83036; 83540; 83550; 83605; 83690; 83735; 84100; 84156; 84300; 85014; 85018; 85025; 85027; 85610; 85652; 85730; 86140; 86704; 86706; 87040; 87077; 87086; 87088; 87340; 87641; 90937; 94762; 97110; 97162; 97165; 97530; 97802; 99284; J1756; J7030; J7040; J7120; Q9967; A4216; G0257; J0610; J1170; J1940; J2270; J2405; J3490

== ENCOUNTER 2017-10-19 20:58 | Emergency (ER) | payer MEDICAID, SELFPAY ==
[2017-10-19 20:59] VITALS: BP 164/114; PULSE 84; RESP 18; TEMP 36.9; O2SAT 100; BMI 36.8
[2017-10-19 21:21] VITALS: BP 160/78; PULSE 80; RESP 14; O2SAT 99
--- NOTE | 2017-10-19 21:52 | US_ITS ---
STUDY: ABDOMINAL ULTRASOUND - RIGHT UPPER QUADRANT REASON FOR VISIT: Female, 22 years old. RUQ pain TECHNIQUE: Ultrasound evaluation of the right upper quadrant was performed with real-time and static gomez-scale imaging. TECHNICAL QUALITY: Adequate. COMPARISON: CT Abdomen/Pelvis Sep 28 2017 10:02am FINDINGS: Liver: The liver measures 19.1 cm. There is increased echogenicity consistent with fatty infiltration. The bile ducts are within normal limits. There is hepatic color flow. The direction of portal flow is hepatopetal. There is no demonstrated mass lesion. Gallbladder: Normal distended gallbladder. The gallbladder wall measures 6 mm. There is a positive sonographic Johnson's sign. There is no pericholecystic fluid. There is biliary sludge dependent within the gallbladder. There are multiple echogenic structures within the gallbladder, consistent with multiple gallstones. Common Bile Duct (C.B.D.): The common bile duct measures 4.8 mm. Pancreas: Normal size of the head, body and tail of the pancreas. There is normal echogenicity of the pancreas. There is a well-circumscribed hypoechoic region anterior to the pancreas measuring 6.7 x 5.2 x 2 cm. Right Kidney: Normal size of the right kidney. The right kidney measures 12.2 x 6.1 x 4.3 cm. Normal renal cortex. The right cortex measures 1.5 cm. There is no demonstrated renal mass or cyst. There is no right hydronephrosis. US/Gallbladder IMPRESSION: There is biliary sludge and multiple gallstones. Positive Johnson sign. Cholecystitis should be considered. There is a well-circumscribed hypoechoic region anterior to the pancreas measuring 6.7 x 5.2 x 2 cm. This may be ascites Electronically Signed: Tyrone Jauregui MD at 22:54 EDT , Service support ,
[2017-10-19 22:08] LABS: Absolute Lymphocyte Count 1.56 X10^3/ul (0.83-4.51); Basophil# 0.04 X10^3/uL; Eosinophil# 0.16 X10^3/uL; Hematocrit 31.3 % (37-47); Hemoglobin 9.8 g/dl (12.0-15.0); Lymphocyte # 1.56 X10^3/ul (4.0); Lymphocyte % 39.4 % (19-41); Mean Corp Hgb Conc 31.3 g/gl (32-36); Mean Corpuscular Hgb 26.5 pg (27.0-32.0); Mean Corpuscular Volume 84.6 fL (81-99); Monocyte# 0.18 X10^3/uL; Monocyte% 4.5 % (0-10); Neutrophil # 2.02 X10^3/uL (2.7-7.7); Neutrophil % 51.1 % (47-70); Platelet Count 272 K/mm3 (150-450); RBC Distribution Width CV 15.3 % (11.6-14.6); RBC Distribution Width SD 47.4 fl (35.1-43.9)
[2017-10-19 22:11] LABS: POSITIVE COUNT NO; POSITIVE DIFFERENTIAL NO; POSITIVE MORPHOLOGY NO
[2017-10-19] MEDS: 0.9% Normal Saline 1,000 ML 1000 ML IV (22:16)
[2017-10-19 22:25] LABS: AST(SGOT) 42 U/L (15-37); Alanine Aminotransfer ALT/SGPT 45 U/L (13-56); Albumin, Serum 3.9 g/dL (3.2-5.0); Alkaline Phosphatase 91 U/L (45-117); Anion Gap 10 (5-15); BUN 22 mg/dL (7-18); BUN/Creat Ratio 12.9 RATIO (10-20); Bilirubin, Direct 0.15 mg/dL (0.00-0.30); Chloride 106 mmol/L (98-107); EST Glomerular Filtration Rate 40 mL/min (>60); Est Glom Filt Rate - Afr Amer 48 mL/min (>60); Estimated Creatinine Clearance 42.94 ml/min; Globulin 4.5 g/dL (2.2-4.2); Glucose 104 mg/dL (74-106); Lipase 502 U/L (73-393); Potassium 3.9 mmol/L (3.5-5.1); Protein, Total 8.4 g/dL (6.4-8.2); Sodium Level 139 mmol/L (136-145)
[2017-10-19 22:43] LABS: Pregnancy, Serum, hCG Quali. NEGATIVE Negative (0-9 Nonpreg)
[2017-10-19 23:02] VITALS: BP 155/70; PULSE 85; RESP 14; O2SAT 98
--- NOTE | 2017-10-19 23:15 | ED.DCSUM_ITS ---
- ER Visit Summary Date of Service: 10/19/17 Chief Complaint: Abdominal pain History of Present Illness: The patient is a [address] Savage and Dr. Cardona. Patient has a history of recurrent pancreatitis and gallstones. She had a very complicated hospitalization last month for pancreatitis and developed acute renal failure while in the hospital. She was transferred to [facility]. At that facility she had an ultrasound which showed gallstones. She was discharged instructions to follow-up with a surgeon in [place]. She has not scheduled an appointment yet. Patient reports that she has abdominal pain that began at 3:00 this afternoon. It is a continuous cramping pain that waxes and wanes. It is 2 out of 10 currently and 5 out of 10 at worst. Is worsened by food periods relieved by remaining still. She has had nausea without vomiting. No diarrhea. Last bowel was today. She has had no melena hematochezia. No dysuria frequency. Physical Examination: Vitals: Stable. Afebrile. General: Well-nourished and well-developed. Head: Normocephalic atraumatic. Neck: Supple, no lymphadenopathy. No JVD. Nontender. Cardiovascular: Regular rate and rhythm. No murmurs. Respiratory: No respiratory distress. Clear to auscultation bilaterally. Abdominal: Soft, mild epigastric and right upper quadrant tenderness to palpation, nondistended, normal bowel sounds. No guarding, rebound, or peritoneal signs. Back: Nontender. Extremities: Nontender, no edema. Skin: Normal color, no rash. Neurologic: Alert and oriented ?3. Cranial nerves II through XII are intact. Normal strength and sensation. Psych: Normal affect. Test Results: CBC is marked for white count of 4.0, H&H 9 point and 31.3. Chem- 7 is more for BUN of 22 and creatinine 1.7. Of note her creatinine range between 3.32 and 7.26 September 20 - September 28. LFTs marked total protein 8.4, globulin of 4.5, AST of 42. Lipase is 502, which is the lowest it is been when tested here. test is negative. Right upper quadrant ultrasound shows common bile duct is 4.8 mm. Normal distended gallbladder with wall of 6 mm. No pericholecystic fluid. She does have sludge and stones present. There is positive Johnson sign. Emergency Department Course and Treatment: Patient is resting comfortably. She refused pain and nausea medications. Treatment Plan: Patient was discussed with Dr. Ogden. He is familiar with the patient. Patient feels well and would like to go home. She will be discharged instructions for Dr. Savage as soon as possible. Instructed to have a liquid diet only. She will be given Zofran for nausea. Return to the emergency department for any worsening symptoms. Disposition: To home in improved and stable condition. Impression: 1. Mild pancreatitis. 2. Biliary sludge. 3. Renal insufficiency, improved. 4. Anemia. This note was generated with [employer] dictation software. It may contain incorrect words, spelling, and punctuation that were not noted in review of the chart prior to signing ED Disposition - Plan for ED Patient: Chief Complaint: Abd Pain Instructions: ED Pancreatitis Prescriptions: Ondansetron [Zofran Odt] 4 mg PO Q8H PRN PRN #10 tablet PRN Reason: Nausea Referrals: Durga Savage MD [STAFF PHYSICIAN] - As soon as possible
[2017-10-19] MEDS: Ondansetron ODT 4 MG Tablet PO (23:40)
[2017-10-19 23:56] VITALS: BP 134/75; PULSE 98; RESP 16; O2SAT 99
== END 2017-10-19 23:57 | disposition home or self-care (01) ==
PROVIDERS: Emergency Provider Emergency Medicine; Family Provider Family Medicine; PCP Family Medicine
DX: K85.90 Acute pancreatitis without necrosis or infection, unspecified (principal); K83.8 Other specified diseases of biliary tract; N28.9 Disorder of kidney and ureter, unspecified; D64.9 Anemia, unspecified; E11.9 Type 2 diabetes mellitus without complications; Z86.79 Personal history of other diseases of the circulatory system; Z87.19 Personal history of other diseases of the digestive system
CPT/HCPCS: 76705; 80048; 80076; 83690; 84703; 85025; 96360; 99284; J7030

== ENCOUNTER 2017-10-21 05:30 | Inpatient (IN) | payer MEDICAID, SELFPAY ==
[2017-10-21] VITALS (7 sets, daily range): BP systolic 115–150; BP diastolic 62–97; PULSE 57–69; RESP 16–18; TEMP 36.7–36.9; O2SAT 97–100; BMI 37.5; BMI 37.4
[2017-10-21] MEDS: 0.9% Normal Saline 1,000 ML 1000 ML IV (05:47)
[2017-10-21 06:00] LABS: Absolute Neutrophil Count 1.7 X10^3/uL (2.0-7.7); Basophil# 0.01 X10^3/uL; Basophil% 0.3 % (0-1); Eosinophil# 0.19 X10^3/uL; Eosinophils% 5.2 % (0-5); Hematocrit 32.7 % (37-47); Hemoglobin 10.3 g/dl (12.0-15.0); Lymphocyte % 41.2 % (19-41); Mean Corp Hgb Conc 31.5 g/gl (32-36); Mean Corpuscular Hgb 26.9 pg (27.0-32.0); Mean Corpuscular Volume 85.4 fL (81-99); Mean Platelet Vol. 9.9 fl (6.2-12.0); Monocyte# 0.26 X10^3/uL; Monocyte% 7.1 % (0-10); Neutrophil # 1.68 X10^3/uL (2.7-7.7); Neutrophil % 46.2 % (47-70); Platelet Count 261 K/mm3 (150-450); RBC Distribution Width CV 15.5 % (11.6-14.6); RBC Distribution Width SD 48.4 fl (35.1-43.9); Red Blood Count 3.83 M/mm3 (4.2-5.4); White Blood Count 3.6 K/mm3 (4.4-11.0)
[2017-10-21] MEDS: Ondansetron 4 MG/2 ML Vial IV (06:00)
[2017-10-21] MEDS: Morphine 4 MG/ML Syringe IV ×2 (06:02→09:55)
[2017-10-21 06:03] LABS: POSITIVE COUNT NO; POSITIVE DIFFERENTIAL NO; POSITIVE MORPHOLOGY NO
[2017-10-21 06:17] LABS: ALB/GLOB Ratio 0.9 RATIO (0.9-2.4); AST(SGOT) 31 U/L (15-37); Alanine Aminotransfer ALT/SGPT 43 U/L (13-56); Albumin, Serum 3.8 g/dL (3.2-5.0); Alkaline Phosphatase 87 U/L (45-117); Amylase 37 U/L (25-115); Anion Gap 12 (5-15); BUN 19 mg/dL (7-18); BUN/Creat Ratio 13.1 RATIO (10-20); Calcium,Total 8.9 mg/dL (8.5-10.1); Chloride 106 mmol/L (98-107); Creatinine, Serum 1.45 mg/dL (0.55-1.02); EST Glomerular Filtration Rate 48 mL/min (>60); Est Glom Filt Rate - Afr Amer 58 mL/min (>60); Estimated Creatinine Clearance 50.34 ml/min; Globulin 4.3 g/dL (2.2-4.2); Glucose 108 mg/dL (74-106); Lipase 442 U/L (73-393); Potassium 3.7 mmol/L (3.5-5.1); Protein, Total 8.1 g/dL (6.4-8.2); Sodium Level 143 mmol/L (136-145)
[2017-10-21 06:42] LABS: Bacteria 0 SEEN /hpf (None Seen); Mucous, Urine 0 SEEN /hpf (<or=2+)
[2017-10-21 06:44] LABS: Color, Urine Yellow (Yellow); Glucose, Dipstick Normal (Normal); Ketone-Dipstick Negative (Negative); Leukocyte Esterase-Dipstick 25 /ul (Negative); Nitrite-Dipstick Negative (Negative); Occult Blood-Urine Negative /ul (Negative); Protein-Dipstick 15 mg/dl (Negative); Specific Gravity, Urine 1.015 (1.002-1.030); Urine Bilirubin Dipstick Negative (Negative); Urine Clarity Clear (Clear); Urine Urobilinogen Normal (Normal)
--- NOTE | 2017-10-21 06:48 | RAD_ITS ---
STUDY: X-RAY - ABDOMEN/PELVIS REASON FOR EXAM: Female, 22 years old. Right upper quadrant pain. Pain since October 19. Diagnosed with gallstones by ultrasound, October 19. TECHNIQUE: Two AP supine views of the abdomen and pelvis. COMPARISON: Abdominal ultrasound 10/19/2017. CT scan abdomen and pelvis 09/28/2017. FINDINGS: There is an unremarkable bowel gas pattern. There is no demonstrated free abdominal air. The visualized liver, spleen and kidneys are grossly normal in size and morphology. Normal soft tissue structures. Normal visualized osseous structures. RAD/Abdomen Single View IMPRESSION: Normal x-ray examination of the abdomen and pelvis. Electronically Signed: Sergio Paredes MD at 7:16 EDT , Service support ,
[2017-10-21 06:50] LABS: Internal QC Validated? YES +Cl - CLEAR BKGD; Pregnancy, Urine Negative Negative
[2017-10-21 06:54] LABS: Red Blood Cells-Urine 0 SEEN /hpf (0-5); Squamous Epithelial Cells - UA 5-10 SEEN /hpf (5-10); White Blood Cells 0-5 SEEN /hpf (0-5)
--- NOTE | 2017-10-21 07:01 | US_ITS ---
STUDY: ABDOMINAL ULTRASOUND - RIGHT UPPER QUADRANT REASON FOR VISIT: Female, 22 years old. Right upper quadrant pain. TECHNIQUE: Ultrasound evaluation of the right upper quadrant was performed with real-time and static gomez-scale imaging. TECHNICAL QUALITY: Adequate. COMPARISON: Gallbladder ultrasound 10/19/2017. CT abdomen and pelvis 09/28/2017. FINDINGS: Liver: The liver measures 20.4 cm. Increased echogenicity of the liver parenchyma due to fatty infiltration. The bile ducts are within normal limits. There is hepatic color flow. The direction of portal flow is hepatopetal. There is no demonstrated mass lesion. Gallbladder: Contracted gallbladder. The gallbladder wall measures 5 mm. There is again A+ sonographic Johnson's sign. Multiple gallstones and sludges are again identified. Common Bile Duct (C.B.D.): The common bile duct measures 6 mm. Pancreas: Normal size of the head, body and tail of the pancreas. There is normal echogenicity of the pancreas. Anechoic cyst anterior to the pancreas measures 6.5 x 5.6 x 2.2 cm. This was also mentioned previously. The pancreatic duct is mildly dilated at 3 mm. Right Kidney: Normal size of the right kidney. The right kidney measures 12.3 x 5.6 x 4.3 cm. Normal renal cortex. The right cortex measures 1.3 cm. There is no demonstrated renal mass or cyst. There is no right hydronephrosis. US/Gallbladder IMPRESSION: 1. Persistent abnormal contracted gallbladder minimal sludge, multiple gallstones and positive sonographic Johnson's sign. This is unchanged. 2. Persistent anechoic cyst anterior to the pancreas measuring 6.5 x 5.6 x 2.2 cm. This is also unchanged. 3. No interval changes or new findings when compared to 10/19/2017. Electronically Signed: Rohan Chong MD at 9:28 EDT , Service support ,
--- NOTE | 2017-10-21 08:01 | ED.VISSUMM ---
- ER Visit Summary Date of Service: 10/21/17 Chief Complaint: [Abdominal pain] History of Present Illness: The patient is a 22 F [who presents the emergency department with abdominal pain. It is been an ongoing issue. She was admitted to [facility] with gallstone pancreatitis complicated by acute renal failure. She was discharged home to follow-up with Dr. Bahman Bell. She was seen in the emergency department for right upper quadrant pain 2 nights ago and showed a positive sonographic Johnson sign and multiple gallstones and sludge but no obvious acute acute cholecystitis. She was discharged home after consultation with surgery to follow-up with Dr. Gutierrez to tomorrow. This morning she woke up with more severe pain nausea and vomiting.] Physical Examination: [] WN WD NAD PERRL EOMI MMM NECK supple and nontender, no masses RRR no murmur rub or gallop, no peripheral edema, symmetric radial pulses CTAB no respiratory distress ABDOMEN tenderness to palpation the bilateral upper quadrant normal bowel sounds, no distension, no rebound or guarding SKIN is warm and dry no rashes Alert and Oriented x3, CN II-XII in tact, no motor or sensory deficits, gait normal No lymphadenopathy Test Results: [] Emergency Department Course and Treatment: [Screening labs show a leukopenia 3.3. Creatinine is improved. Lipase is 422 which is down. I spoke with the patient and she is having ongoing issues with pain and would like to just get her gallbladder out. I did speak with Dr. Ogden who requested we repeat the ultrasound to see if she has any pericholecystic fluid or signs of acute cholecystitis.] Treatment Plan: [] Disposition: [Pending ultrasound] Impression: [Gallbladder disease] This note was generated with [employer] dictation software. It may contain incorrect words, spelling, and punctuation that were not noted in review of the chart prior to signing ED Disposition - Plan for ED Patient: Chief Complaint: Abd Pain Referrals: Bryant Cardona MD [Primary Care Provider] -
--- NOTE | 2017-10-21 08:05 | ED.DCSUM_ITS ---
- ER Visit Summary Date of Service: 10/21/17 Chief Complaint: [Abdominal pain] History of Present Illness: The patient is a 22 F [who presents the emergency department with abdominal pain. It is been an ongoing issue. She was admitted to [facility] with gallstone pancreatitis complicated by acute renal failure. She was discharged home to follow-up with Dr. Bahman Bell. She was seen in the emergency department for right upper quadrant pain 2 nights ago and showed a positive sonographic Johnson sign and multiple gallstones and sludge but no obvious acute acute cholecystitis. She was discharged home after consultation with surgery to follow-up with Dr. Gutierrez to tomorrow. This morning she woke up with more severe pain nausea and vomiting.] Physical Examination: [] WN WD NAD PERRL EOMI MMM NECK supple and nontender, no masses RRR no murmur rub or gallop, no peripheral edema, symmetric radial pulses CTAB no respiratory distress ABDOMEN tenderness to palpation the bilateral upper quadrant normal bowel sounds , no distension, no rebound or guarding SKIN is warm and dry no rashes Alert and Oriented x3, CN II-XII in tact, no motor or sensory deficits, gait normal No lymphadenopathy Test Results: [] Emergency Department Course and Treatment: [Screening labs show a leukopenia 3.3. Creatinine is improved. Lipase is 422 which is down. I spoke with the patient and she is having ongoing issues with pain and would like to just get her gallbladder out. I did speak with Dr. Ogden who requested we repeat the ultrasound to see if she has any pericholecystic fluid or signs of acute cholecystitis.] Treatment Plan: [] Disposition: [Pending ultrasound] Impression: [Gallbladder disease] This note was generated with [employer] dictation software. It may contain incorrect words, spelling, and punctuation that were not noted in review of the chart prior to signing ED Disposition - Plan for ED Patient: Chief Complaint: Abd Pain Referrals: Bryant Cardona MD [Primary Care Provider] -
--- NOTE | 2017-10-21 09:13 | CT_ITS ---
STUDY: CT ABDOMEN AND PELVIS WITH CONTRAST REASON FOR EXAM: Female, 22 years old. Upper abdominal pain with nausea and vomiting. Diabetes, hypertension, recurrent pancreatitis and acute renal failure 09/2017. RADIATION DOSAGE (If Supplied By Facility): CTDIvol = ( 14.90 ) mGy, DLP = ( 807.69 ) mGycm TECHNIQUE: Transaxial images were obtained from the dome of the diaphragm to the symphysis pubis with oral contrast. 15mL ml of Gastrografin contrast was administered. Sagittal and coronal images were reconstructed. Individualized dose optimization techniques were used for this CT. COMPARISON: 09/28/2017. FINDINGS: Clearing of large right pleural fluid. Reexpansion of right lower lobe atelectases. Normal lung bases. The visualized portions of the heart are within normal limits. Normal liver. Normal gallbladder and extrahepatic biliary system. Normal spleen. Pancreas: Probable pancreatic pseudocyst formation in the anterior aspect of the body of pancreas extending anterior to the pancreatic head measuring 9.1 x 2.9 cm. This is most likely smaller but the comparison study had extensive streak artifacts and very limited in detail. Decreased size of loculated pancreatic pseudocyst extending in the anterior mesentery measuring 4.7 x 4.0 cm, previously 10.7 x 6.2 cm. Normal bilateral adrenal glands. Normal right kidney. Normal left kidney. Normal visualized stomach. Normal small intestine. Normal colon. The appendix is visualized and appears normal. Normal abdominal aorta. Normal inferior vena cava. Normal retroperitoneum. Normal urinary bladder. Clearing of ascites in the flanks of the abdomen and in the pelvis. Normal abdominal wall. Normal osseous structures. CT/Abdomen/Pel W ORAL Cont Only IMPRESSION: 1. Interval clearing of ascites. 2. Probable decrease in pancreatic pseudocysts in the anterior body of the pancreas pancreatic head. The actual decrease in size is difficult to measure since the comparison study have extensive streak artifacts with very limited soft tissue detail. The anterior mesenteric extension of the pancreatic pseudocyst is smaller and it measures 4.7 x 4 cm, previously 10.7 x 6.2 cm. 3. Clearing of large right pleural fluid and reexpansion of right lower lobe atelectases. Electronically Signed: Rohan Chong MD at 11:28 EDT , Service support ,
--- NOTE | 2017-10-21 13:19 | PCM.HP.STD ---
Problem List (1) Abdominal pain Status: Acute (2) Recurrent acute pancreatitis Status: Chronic (3) Depression Status: Chronic Qualifiers: Comment: zoloft (4) Type 2 diabetes mellitus Status: Chronic Qualifiers: (5) Migraine headache Status: Chronic Qualifiers: (6) Hyperlipidemia Status: Chronic History of Present Illness Date of Admission: 10/21/17 Chief Complaint: Abdominal pain, nausea The patient is a 22 year old F with past history of obesity, recurrent biliary pancreatitis, pancreatic pseudocyst, DM 2 on metformin, anxiety/depression, hypertension, hypertriglyceridemia, no alcohol use, not on hormonal agents, who presents to ED for abdominal pain and nausea. About a year ago she developed pancreatitis secondary to fibrate medication. Medication was stopped . She was admitted to hospital 09/20/2017 through 09/28/2017 for recurrent acute pancreatitis and acute kidney injury. She was 9 weeks and had started on an estrogen patch [address] abdomen pelvis with contrast revealed acute interstitial pancreatitis with a fluid collection involving mainly the pancreatic head, with curvilinear areas of inflammation most likely representing necrosis. He was admitted to the medicine floor initially and started on Zosyn. She was treated medically. Hospital course was complicated by severe acute kidney injury felt to be ATN secondary to pancreatitis and IV contrast exposure, iron deficiency anemia, and fever with worsening radiographic imaging of pancreatitis.. She was seen and followed in consultation by nephrology, ID, and surgical services. She required hemodialysis , Venofer and continued ABX and was transferred to [facility] for continued care. The patient reports at [facility] she had an ultrasound and MRI of pancreas which documented cholelithiasis. She was ultimately discharged and told to follow-up for with surgeon for cholecystectomy at future time. She presented to ED today with days of nausea and recurrent abdominal pain which started this morning. She denies fevers chills or emesis. She has not eaten for 11 hours. Urine has not been dark. Her bowel and bladder have otherwise been functioning normally. She denies melena, hematochezia, dysuria. ED eval: afebrile, blood pressure 150/97, heart rate 69, respirations 18, 100% room air. Laboratories indicated white count 3.6, hemoglobin 10.3 normocytic, platelet 261, no left shift Chemistries are pertinent for BUN 19, creatinine 1.45 creatinine clearance 48 Serum calcium, albumin, LFTs, and amylase were normal. Lipase was mildly elevated at 442. Urinalysis reveals leukocyte esterase, but no pyuria and negative nitrite. Urine test is negative. Imaging studies: KUB --unrevealing Right upper quadrant ultrasound --fatty liver, no intrahepatic biliary dilatation, cholelithiasis and sludge, persistent abnormal contracted gallbladder with positive sonographic Johnson sign, common bile duct 6 mm, normal pancreatic echogenicity and size, cyst anterior to the pancreas measures 6.5 x 5.6 x 2.2 cm stable, mildly dilated pancreatic duct [address] abdomen pelvis with contrast --> pancreatic pseudocyst measuring 9.1 x 2.9 cm likely smaller in body of pancreas, decreased size of loculated pancreatic pseudocyst measuring 4.7 x 4.0 cm in anterior mesentery (previously 10.7 x 6.2 cm Gallbladder reported normal, extrahepatic biliary system reported normal ED course: Saline 1 L, morphine 4 mg IV ?2, Zofran 4 mg IV ?1, consultation with Dr. Ogden --> admission advised with surgery consultation Upon seeing the patient, she reports her pain is much improved. [] Past Medical History Past Medical History (Chronic Problems): Chronic Problems (Last Reviewed 07/25/17 @ 14:54 by Sydni Chen) Recurrent acute pancreatitis (Chronic) Depression (Chronic) zoloft Type 2 diabetes mellitus (Chronic) Migraine headache (Chronic) Hyperlipidemia (Chronic) Medical History: Medical History (Last Reviewed 10/21/17 @ 13:38 by Giuliana Pompa MD) Depression (Chronic) F32.9 zoloft Type 2 diabetes mellitus (Chronic) E11.9 Migraine headache (Chronic) G43.909 Hyperlipidemia (Chronic) E78.5 Acute pancreatitis (Resolved) K85.90 Allergies Gadolinium-MRI Contrast Medium [DYE] Allergy (Verified 10/21/17 05:33) Rash Home Medications: Ambulatory Orders Medication Instructions Recorded Sertraline HCl [Zoloft] 100 mg PO QHS 07/02/17 Ondansetron [Zofran Odt] 4 mg PO Q8H PRN PRN #10 tablet 10/19/17 Surgical History: Surgical History (Last Reviewed 10/21/17 @ 13:38 by Giuliana Pompa MD) carpal tunnel Surgical History: no surgical history Smoking Status: Never smoker - *Family History Maternal Family History: Family History (Last Reviewed 10/21/17 @ 13:38 by Giuliana Pompa MD) Mother Diabetes Grandmother Diabetes Grandfather Diabetes Father hyperlipidemia History Items: Diabetes Paternal Family History: Family History (Last Reviewed 10/21/17 @ 13:38 by Giuliana Pompa MD) Mother Diabetes Grandmother Diabetes Grandfather Diabetes Father hyperlipidemia History Items: Diabetes Review of Systems Gastrointestinal: Reports: Abdominal Pain, Nausea VTE Information - Inpt Only VTE Present on Admission: No VTE Mechan Device Prophylaxis: SCD's VTE Pharm Prophylaxis ordered?: Yes Patient Problems: Active and Suspected Problems (Last Reviewed 07/25/17 @ 14:54 by Sydni Chen) Abdominal pain (Acute) Subjective: The patient reports her his abdominal pain is much improved Objective: The patient has stable vital signs and is nontoxic-appearing - Physical Exam General: Alert, Oriented x3, Cooperative HEENT: PERRLA, EOMI, - - No scleral icterus Oral: Moist Mucosa Neck: No JVD Lungs: Clear to auscultation Cardiovascular: Regular rate, Regular Rhythm, Normal S1, Normal S2 Abdomen: Bowel Sounds Present, Soft, Obese, Tender - Tenderness in right upper quadrant which reproduces symptoms, extending across the midepigastrium Extremities: No edema Skin: No rashes Musculoskeletal: No Tenderness to Palpation of Joints or Extremities Neurological: - - Nonfocal Psych/Mental Status: Normal Affect, Appropriate Vital Signs Temp Pulse Resp BP Pulse Ox 98.1 F 57 L 17 127/77 H 99 10/21/17 05:31 10/21/17 11:00 10/21/17 11:00 10/21/17 11:00 10/21/17 11:00 Oxygen Delivery Method Room Air Weight: 212 lb 1.355 oz Body Mass Index (BMI) 37.5 Finger Stick Blood Glucose 248 Laboratory Tests Past 24 Hrs 10/21/17 10/21/17 10/21/17 05:43 05:43 06:34 WBC 3.6 L RBC 3.83 L Hgb 10.3 L Hct 32.7 L MCV 85.4 MCH 26.9 L MCHC 31.5 L RDW 15.5 H RDW Differential 48.4 H Plt Count 261 MPV 9.9 Immature Gran % (Auto) 0.000 Neut % (Auto) 46.2 L Lymph % (Auto) 41.2 H Davison % (Auto) 7.1 Eos % (Auto) 5.2 H Baso % (Auto) 0.3 Absolute Neuts (auto) 1.7 L Absolute Lymphs (auto) 1.50 Total Counted Not Reportable Sodium 143 Potassium 3.7 Chloride 106 Carbon Dioxide 25.0 Anion Gap 12 BUN 19 H Creatinine 1.45 H Estim Creat Clear Calc 50.34 Est GFR (MDRD) Af Amer 58 L Est GFR (MDRD) Non-Af 48 L BUN/Creatinine Ratio 13.1 Glucose 108 H Calcium 8.9 Total Bilirubin 0.30 AST 31 ALT 43 Alkaline Phosphatase 87 Total Protein 8.1 Albumin 3.8 Globulin 4.3 H Albumin/Globulin Ratio 0.9 Amylase 37 Lipase 442 H Urine Color Urine Clarity Urine pH Ur Specific Charlotte Urine Protein Urine Glucose (UA) Urine Ketones Urine Occult Blood Urine Nitrite Urine Bilirubin Urine Urobilinogen Ur Leukocyte Esterase Urine RBC Urine WBC Ur Squamous Epith Cells Urine Bacteria Urine Mucus Urine Test Negative 10/21/17 06:34 WBC RBC Hgb Hct MCV MCH MCHC RDW RDW Differential Plt Count MPV Immature Gran % (Auto) Neut % (Auto) Lymph % (Auto) Davison % (Auto) Eos % (Auto) Baso % (Auto) Absolute Neuts (auto) Absolute Lymphs (auto) Total Counted Sodium Potassium Chloride Carbon Dioxide Anion Gap BUN Creatinine Estim Creat Clear Calc Est GFR (MDRD) Af Amer Est GFR (MDRD) Non-Af BUN/Creatinine Ratio Glucose Calcium Total Bilirubin AST ALT Alkaline Phosphatase Total Protein Albumin Globulin Albumin/Globulin Ratio Amylase Lipase Urine Color Yellow Urine Clarity Clear Urine pH 6.0 Ur Specific Charlotte 1.015 Urine Protein 15 H Urine Glucose (UA) Normal Urine Ketones Negative Urine Occult Blood Negative Urine Nitrite Negative Urine Bilirubin Negative Urine Urobilinogen Normal Ur Leukocyte Esterase 25 H Urine RBC 0 SEEN Urine WBC 0-5 SEEN Ur Squamous Epith Cells 5-10 SEEN Urine Bacteria 0 SEEN Urine Mucus 0 SEEN Urine Test Assessment/Plan All Active Problems (Last Reviewed 07/25/17 @ 14:54 by Sydni Chen) Severe preeclampsia (Acute) KIM (acute kidney injury) (Acute) Abdominal pain (Acute) Hypertension complicating in third trimester (Acute) High-risk in third trimester (Acute) Diabetes in (Acute) History of pre-eclampsia (Acute) Acute pancreatitis (Resolved) Hypertension affecting in second trimester (Resolved) Supervision of high risk in second trimester (Resolved) The patient is a 22 year old F with past history of obesity, recurrent biliary pancreatitis, pancreatic pseudocyst, DM 2 on metformin, anxiety/depression, hypertension, hypertriglyceridemia, no alcohol use, not on hormonal agents, who presents to ED for abdominal pain and nausea. About a year ago she developed pancreatitis secondary to fibrate medication. Medication was stopped . She was admitted to hospital 09/20/2017 through 09/28/2017 for recurrent acute pancreatitis and acute kidney injury. She was 9 weeks and had started on an estrogen patch [address] abdomen pelvis with contrast revealed acute interstitial pancreatitis with a fluid collection involving mainly the pancreatic head, with curvilinear areas of inflammation most likely representing necrosis. He was admitted to the medicine floor initially and started on Zosyn. She was treated medically. Hospital course was complicated by severe acute kidney injury felt to be ATN secondary to pancreatitis and IV contrast exposure, iron deficiency anemia, and fever with worsening radiographic imaging of pancreatitis.. She was seen and followed in consultation by nephrology, ID, and surgical services. She required hemodialysis , Venofer and continued ABX and was transferred to [facility] for continued care. The patient reports at [facility] she had an ultrasound and MRI of pancreas which documented cholelithiasis. She was ultimately discharged and told to follow-up for with surgeon for cholecystectomy at future time. She presented to ED today with days of nausea and recurrent abdominal pain which started this morning. Laboratories are consistent with mild pancreatitis, although on imaging pseudocysts appears stable/improved. She has sonographic positive Johnson sign and cholelithiasis/sludge in gallbladder. She would benefit from medical stabilization and cholecystectomy. There are no signs of biliary sepsis/cholangitis, or intra-/extrahepatic biliary dilatation. 1. Biliary colic Early cholecystitis not excluded PLAN: Medical supportive care with IV fluids, n.p.o. status except meds, glycemic control, analgesics, antiemetics Her white count is normal, I do not feel antibiotics are indicated at this time Serial lab Monitor for fever opinion Dr. Savage 2. Recurrent biliary pancreatitis Mild elevation of lipase Known history of pseudocyst, stable/ improved on imaging PLAN: See #1 3. History of recurrent pancreatitis, with pancreatic pseudocysts Stable/improved on current imaging 4. KIM Unknown discharge creatinine level from [facility]. Continue to follow, serial lab, hydration, avoid offending agents Baseline creatinine 0.56 (05/03/16) 5. DM 2 hold metformin NPO status and insulin to scale every 6 hours 6. HTN Current blood pressures acceptable; follow with as needed hydralazine 25 mg p.o. 3 times daily as needed systolic blood pressure greater than 170 7. Hypertriglyceridemia Off fibrate 2/2 pancreatitis Outpatient follow up 8. depression -- sertraline HS 9. DVT prophylaxis Subcu heparin Code Visit Inpatient E&M: 74249 Init Hosp L2
[2017-10-21] MEDS: Morphine 2 MG/ML Syringe IV ×2 (15:11→20:52)
[2017-10-21 16:26] LABS: Bedside Glucose 74 mg/dL (70-110)
--- NOTE | 2017-10-21 17:12 | PCA ---
Pt's , Alexx -- updated phone number [phone]
--- NOTE | 2017-10-21 18:46 | CON.PCM_ITS ---
Problem List (1) RUQ abdominal pain Status: Acute (2) Cholelithiasis Status: Acute Qualifiers: Cholelithiasis location: gallbladder Cholecystitis presence: with cholecystitis Cholecystitis acuity: acute and chronic Biliary obstruction: without biliary obstruction Qualified Code(s): K80.12 - Calculus of gallbladder with acute and chronic cholecystitis without obstruction Reason for Consult Date of Consultation: 10/21/17 History of Present Illness: The patient is a 22 year old F with past history of obesity, recurrent biliary pancreatitis, pancreatic pseudocyst, DM 2 on metformin, anxiety/depression, hypertension, hypertriglyceridemia, no alcohol use, not on hormonal agents, who presents to ED for abdominal pain and nausea. About a year ago she developed pancreatitis secondary to fibrate medication. Medication was stopped . She was admitted to hospital 09/20/2017 through 09/28/2017 for recurrent acute pancreatitis and acute kidney injury. She was 9 weeks and had started on an estrogen patch [address] abdomen pelvis with contrast revealed acute interstitial pancreatitis with a fluid collection involving mainly the pancreatic head, with curvilinear areas of inflammation most likely representing necrosis. He was admitted to the medicine floor initially and started on Zosyn. She was treated medically. Hospital course was complicated by severe acute kidney injury felt to be ATN secondary to pancreatitis and IV contrast exposure, iron deficiency anemia, and fever with worsening radiographic imaging of pancreatitis.. She was seen and followed in consultation by nephrology, ID, and surgical services. She required hemodialysis , Venofer and continued ABX and was transferred to [facility] for continued care. The patient reports at [facility] she had an ultrasound and MRI of pancreas which documented cholelithiasis. She was ultimately discharged and told to follow-up for with surgeon for cholecystectomy at future time. She presented to ED today with days of nausea and recurrent abdominal pain which started this morning. She denies fevers chills or emesis. She has not eaten for 11 hours. Urine has not been dark. Her bowel and bladder have otherwise been functioning normally. She denies melena, hematochezia, dysuria. ED eval: afebrile, blood pressure 150/97, heart rate 69, respirations 18, 100% room air. Laboratories indicated white count 3.6, hemoglobin 10.3 normocytic, platelet 261 , no left shift Chemistries are pertinent for BUN 19, creatinine 1.45 creatinine clearance 48 Serum calcium, albumin, LFTs, and amylase were normal. Lipase was mildly elevated at 442. Urinalysis reveals leukocyte esterase, but no pyuria and negative nitrite. Urine test is negative. Imaging studies: KUB --unrevealing Right upper quadrant ultrasound --fatty liver, no intrahepatic biliary dilatation, cholelithiasis and sludge, persistent abnormal contracted gallbladder with positive sonographic Johnson sign, common bile duct 6 mm, normal pancreatic echogenicity and size, cyst anterior to the pancreas measures 6.5 x 5.6 x 2.2 cm stable, mildly dilated pancreatic duct [address] abdomen pelvis with contrast --> pancreatic pseudocyst measuring 9.1 x 2.9 cm likely smaller in body of pancreas, decreased size of loculated pancreatic pseudocyst measuring 4.7 x 4.0 cm in anterior mesentery (previously 10.7 x 6.2 cm Gallbladder reported normal, extrahepatic biliary system reported normal The patient was going to see Dr. Savage this coming Sunday to get scheduled for an elective surgery. Past Medical History Past Medical History (Chronic Problems): Chronic Problems (Last Reviewed 10/21/17 @ 13:38 by Giuliana Pompa MD) Recurrent acute pancreatitis (Chronic) Depression (Chronic) zoloft Type 2 diabetes mellitus (Chronic) Migraine headache (Chronic) Hyperlipidemia (Chronic) Medical History: Medical History (Last Reviewed 10/21/17 @ 18:45 by Gerry Ogden MD) Depression (Chronic) F32.9 zoloft Type 2 diabetes mellitus (Chronic) E11.9 Migraine headache (Chronic) G43.909 Hyperlipidemia (Chronic) E78.5 Acute pancreatitis (Resolved) K85.90 Allergies Gadolinium-MRI Contrast Medium [DYE] Allergy (Verified 10/21/17 05:33) Rash Home Medications: Ambulatory Orders Medication Instructions Recorded Sertraline HCl [Zoloft] 100 mg PO QHS 07/02/17 Ondansetron [Zofran Odt] 4 mg PO Q8H PRN PRN #10 tablet 10/19/17 Surgical History: Surgical History (Last Reviewed 10/21/17 @ 18:45 by Gerry Ogden MD) carpal tunnel Surgical History: no surgical history Smoking Status: Never smoker - *Family History Maternal Family History: Family History (Last Reviewed 10/21/17 @ 13:38 by Giuliana Pompa MD) Mother Diabetes Grandmother Diabetes Grandfather Diabetes Father hyperlipidemia History Items: Diabetes Paternal Family History: Family History (Last Reviewed 10/21/17 @ 13:38 by Giuliana Pompa MD) Mother Diabetes Grandmother Diabetes Grandfather Diabetes Father hyperlipidemia History Items: Diabetes Review of Systems Constitutional: Reports: Anorexia Gastrointestinal: Reports: Abdominal Pain, Nausea. Denies: Vomiting Patient Problems: Active and Suspected Problems (Last Reviewed 10/21/17 @ 13:38 by Giuliana Pompa MD) Abdominal pain (Acute) RUQ abdominal pain (Acute) Cholelithiasis and cholecystitis with obstruction (Acute) Cholelithiasis (Acute) - Physical Exam General: Alert, Oriented x3 Lungs: Clear to auscultation Cardiovascular: Regular rate, Regular Rhythm, No murmurs Abdomen: Bowel Sounds Present, Soft, Non Tender, Non-Distended Vital Signs Temp Pulse Resp BP Pulse Ox 98.3 F 67 16 139/90 H 97 10/21/17 14:54 10/21/17 14:54 10/21/17 14:54 10/21/17 14:54 10/21/17 14:54 Oxygen Delivery Method Room Air Weight: 211 lb 3.245 oz Body Mass Index (BMI) 37.4 Intake and Output for Last 24 Hours 10/19/17 10/20/17 10/21/17 23:59 23:59 23:59 Intake Total 294 / 294 Balance 294 / 294 POC Glucose 10/21/17 16:23 POC Glucose 74 Assessment/Plan All Active Problems (Last Reviewed 10/21/17 @ 13:38 by Giuliana Pompa MD) Severe preeclampsia (Acute) KIM (acute kidney injury) (Acute) Abdominal pain (Acute) RUQ abdominal pain (Acute) Cholelithiasis and cholecystitis with obstruction (Acute) Cholelithiasis (Acute) Hypertension complicating in third trimester (Acute) High-risk in third trimester (Acute) Diabetes in (Acute) History of pre-eclampsia (Acute) Acute pancreatitis (Resolved) Hypertension affecting in second trimester (Resolved) Supervision of high risk in second trimester (Resolved) Dr. Savage will see the patient this coming Sunday to determine when he will most likely be able to remove her gallbladder.
[2017-10-21] MEDS: 0.9% NaCl Peripheral Flush Adult/Peds IV ×3 (20:52→22:00)
[2017-10-21] MEDS: proMETHazine 25 MG/ML Syringe 12.5 MG IV (20:53)
[2017-10-21] MEDS: Heparin Injection (Vial) 5,000 UNIT/ML VIAL 5000 UNIT SC (20:54)
[2017-10-21] MEDS: Sertraline 100 MG Tablet PO (20:55)
[2017-10-22 00:20] LABS: Bedside Glucose 85 mg/dL (70-110)
[2017-10-22 02:45] VITALS: BP 121/70; PULSE 54; RESP 18; TEMP 36.6; O2SAT 99
[2017-10-22] MEDS: Acetaminophen 325 MG Tablet 650 MG PO (05:59)
[2017-10-22 06:09] LABS: ALB/GLOB Ratio 0.9 RATIO (0.9-2.4); AST(SGOT) 31 U/L (15-37); Alanine Aminotransfer ALT/SGPT 38 U/L (13-56); Albumin, Serum 3.5 g/dL (3.2-5.0); Alkaline Phosphatase 81 U/L (45-117); Anion Gap 10 (5-15); BUN 13 mg/dL (7-18); BUN/Creat Ratio 9.7 RATIO (10-20); Calcium,Total 8.9 mg/dL (8.5-10.1); Chloride 110 mmol/L (98-107); Creatinine, Serum 1.34 mg/dL (0.55-1.02); EST Glomerular Filtration Rate 53 mL/min (>60); Est Glom Filt Rate - Afr Amer 64 mL/min (>60); Estimated Creatinine Clearance 54.47 ml/min; Globulin 3.8 g/dL (2.2-4.2); Glucose 94 mg/dL (74-106); Lipase 468 U/L (73-393); Potassium 4.2 mmol/L (3.5-5.1); Protein, Total 7.3 g/dL (6.4-8.2); Sodium Level 145 mmol/L (136-145)
[2017-10-22 07:16] LABS: Bedside Glucose 100 mg/dL (70-110)
[2017-10-22 08:15] VITALS: BP 137/88; PULSE 57; RESP 14; TEMP 36.3; O2SAT 100
[2017-10-22] MEDS: Ondansetron 4 MG/2 ML Vial IV (10:56)
--- NOTE | 2017-10-22 11:02 | PCM.PN.SRG ---
Patient Problems: Active and Suspected Problems (Last Reviewed 10/21/17 @ 18:45 by Gerry Ogden MD) Abdominal pain (Acute) RUQ abdominal pain (Acute) Cholelithiasis and cholecystitis with obstruction (Acute) Cholelithiasis (Acute) Subjective: Patient reports improvement in her nausea and pain this morning. She is not had any fevers or chills. - Physical Exam General: Alert, Oriented x3, Cooperative, No apparent distress HEENT: Atraumatic Neck: No JVD Lungs: Normal air movement Cardiovascular: Regular rate, Regular Rhythm Abdomen: Soft, Non-Distended, Tender - Mild tenderness to palpation of the right upper quadrant. No guarding or rebound. Musculoskeletal: No Muscle Wasting Neurological: Cranial nerves II-XII grossly intact Vital Signs Temp Pulse Resp BP Pulse Ox 97.9 F 54 L 18 121/70 H 99 10/22/17 02:45 10/22/17 02:45 10/22/17 02:45 10/22/17 02:45 10/22/17 02:45 Oxygen Delivery Method Room Air Weight: 211 lb 3.245 oz Body Mass Index (BMI) 37.4 Intake and Output for Last 24 Hours 10/20/17 10/21/17 10/22/17 23:59 23:59 23:59 Intake Total 294 / 294 1104 / 1104 Output Total 1100 / 1100 Balance 294 / 294 4 / 4 Laboratory Tests Past 24 Hrs 10/22/17 04:55 Sodium 145 Potassium 4.2 Chloride 110 H Carbon Dioxide 25.0 Anion Gap 10 BUN 13 Creatinine 1.34 H Estim Creat Clear Calc 54.47 Est GFR (MDRD) Af Amer 64 Est GFR (MDRD) Non-Af 53 L BUN/Creatinine Ratio 9.7 L Glucose 94 Calcium 8.9 Total Bilirubin 0.50 AST 31 ALT 38 Alkaline Phosphatase 81 Total Protein 7.3 Albumin 3.5 Globulin 3.8 Albumin/Globulin Ratio 0.9 Lipase 468 H POC Glucose 10/22/17 10/22/17 10/21/17 05:40 00:16 16:23 POC Glucose 100 85 74 Clinical Impression(s) from Imaging Studies KUB X-Ray 10/21/17 06:48 IMPRESSION: Normal x-ray examination of the abdomen and pelvis. Electronically Signed: Sergio Paredes MD at 7:16 EDT , Service support , Gallbladder Ultrasound 10/21/17 07:01 IMPRESSION: 1. Persistent abnormal contracted gallbladder minimal sludge, multiple gallstones and positive sonographic Johnson's sign. This is unchanged. 2. Persistent anechoic cyst anterior to the pancreas measuring 6.5 x 5.6 x 2.2 cm. This is also unchanged. 3. No interval changes or new findings when compared to 10/19/2017. Electronically Signed: Rohan Chong MD at 9:28 EDT , Service support , Abdomen CT 10/21/17 09:13 IMPRESSION: 1. Interval clearing of ascites. 2. Probable decrease in pancreatic pseudocysts in the anterior body of the pancreas pancreatic head. The actual decrease in size is difficult to measure since the comparison study have extensive streak artifacts with very limited soft tissue detail. The anterior mesenteric extension of the pancreatic pseudocyst is smaller and it measures 4.7 x 4 cm, previously 10.7 x 6.2 cm. 3. Clearing of large right pleural fluid and reexpansion of right lower lobe atelectases. Electronically Signed: Rohan Chong MD at 11:28 EDT , Service support , Medical Necessity - Tobacco Use Smoking Status: Never smoker Assessment/Plan All Active Problems (Last Reviewed 10/21/17 @ 18:45 by Gerry Ogden MD) Severe preeclampsia (Acute) KIM (acute kidney injury) (Acute) Abdominal pain (Acute) RUQ abdominal pain (Acute) Cholelithiasis and cholecystitis with obstruction (Acute) Cholelithiasis (Acute) Hypertension complicating in third trimester (Acute) High-risk in third trimester (Acute) Diabetes in (Acute) History of pre-eclampsia (Acute) Acute pancreatitis (Resolved) Hypertension affecting in second trimester (Resolved) Supervision of high risk in second trimester (Resolved) 22-year-old female with chronic pancreatitis 1. I reviewed the patient's CAT scan. I discussed her results with her. She has normal white count but thickening of the gallbladder. I reviewed her CAT scan with her and showed her a normal CAT scan and her CAT scan from the middle of September and her current CAT scan. There is improvement in the most recent CAT scan as her ascites has resolved and her pseudocysts are shrinking. However she still has significant inflammation of the head of the pancreas. 2. I do not believe the patient has acute cholecystitis. I believe the patient's gallbladder is thickened due to the inflammation in her pancreas. The patient has a normal white count and says that her pain and nausea have improved since yesterday off any antibiotics. I believe performing a cholecystectomy at this point would be too risky due to the amount of inflammation near the infundibulum of her gallbladder. 3. The patient reports that she was never told what kind of diet to be on upon discharge. My official recommendation would be to place a PICC line and put her on TPN and keep her n.p.o. until this resolves. The patient would not like to pursue this treatment at this time so I would be okay with discharging her on a very low-fat diet. I would see her back in 2 weeks and before attempting a laparoscopic cholecystectomy I would like to see a CT scan which shows resolution of this inflammation. 4. I started her on a clear liquid diet. She can be advanced to a nonfat diet as tolerated and discharged home. If she develops any increased vomiting or fever indicative of acute cholecystitis I would recommend cholecystostomy tube being placed. Durga Savage MD Pager: [facility] [address] [place] [address], [address] [place] [address] Office:
--- NOTE | 2017-10-22 11:08 | PN.SURG_ITS ---
Patient Problems: Active and Suspected Problems (Last Reviewed 10/21/17 @ 18:45 by Gerry Ogden MD) Abdominal pain (Acute) RUQ abdominal pain (Acute) Cholelithiasis and cholecystitis with obstruction (Acute) Cholelithiasis (Acute) Subjective: Patient reports improvement in her nausea and pain this morning. She is not had any fevers or chills. - Physical Exam General: Alert, Oriented x3, Cooperative, No apparent distress HEENT: Atraumatic Neck: No JVD Lungs: Normal air movement Cardiovascular: Regular rate, Regular Rhythm Abdomen: Soft, Non-Distended, Tender - Mild tenderness to palpation of the right upper quadrant. No guarding or rebound. Musculoskeletal: No Muscle Wasting Neurological: Cranial nerves II-XII grossly intact Vital Signs Temp Pulse Resp BP Pulse Ox 97.9 F 54 L 18 121/70 H 99 10/22/17 02:45 10/22/17 02:45 10/22/17 02:45 10/22/17 02:45 10/22/17 02:45 Oxygen Delivery Method Room Air Weight: 211 lb 3.245 oz Body Mass Index (BMI) 37.4 Intake and Output for Last 24 Hours 10/20/17 10/21/17 10/22/17 23:59 23:59 23:59 Intake Total 294 / 294 1104 / 1104 Output Total 1100 / 1100 Balance 294 / 294 4 / 4 Laboratory Tests Past 24 Hrs 10/22/17 04:55 Sodium 145 Potassium 4.2 Chloride 110 H Carbon Dioxide 25.0 Anion Gap 10 BUN 13 Creatinine 1.34 H Estim Creat Clear Calc 54.47 Est GFR (MDRD) Af Amer 64 Est GFR (MDRD) Non-Af 53 L BUN/Creatinine Ratio 9.7 L Glucose 94 Calcium 8.9 Total Bilirubin 0.50 AST 31 ALT 38 Alkaline Phosphatase 81 Total Protein 7.3 Albumin 3.5 Globulin 3.8 Albumin/Globulin Ratio 0.9 Lipase 468 H POC Glucose 10/22/17 10/22/17 10/21/17 05:40 00:16 16:23 POC Glucose 100 85 74 Clinical Impression(s) from Imaging Studies KUB X-Ray 10/21/17 06:48 IMPRESSION: Normal x-ray examination of the abdomen and pelvis. Electronically Signed: Sergio Paredes MD at 7:16 EDT , Service support , Gallbladder Ultrasound 10/21/17 07:01 IMPRESSION: 1. Persistent abnormal contracted gallbladder minimal sludge, multiple gallstones and positive sonographic Johnson's sign. This is unchanged. 2. Persistent anechoic cyst anterior to the pancreas measuring 6.5 x 5.6 x 2.2 cm. This is also unchanged. 3. No interval changes or new findings when compared to 10/19/2017. Electronically Signed: Rohan Chong MD at 9:28 EDT , Service support , Abdomen CT 10/21/17 09:13 IMPRESSION: 1. Interval clearing of ascites. 2. Probable decrease in pancreatic pseudocysts in the anterior body of the pancreas pancreatic head. The actual decrease in size is difficult to measure since the comparison study have extensive streak artifacts with very limited soft tissue detail. The anterior mesenteric extension of the pancreatic pseudocyst is smaller and it measures 4.7 x 4 cm, previously 10.7 x 6.2 cm. 3. Clearing of large right pleural fluid and reexpansion of right lower lobe atelectases. Electronically Signed: Rohan Chong MD at 11:28 EDT , Service support , Medical Necessity - Tobacco Use Smoking Status: Never smoker Assessment/Plan All Active Problems (Last Reviewed 10/21/17 @ 18:45 by Gerry Ogden MD) Severe preeclampsia (Acute) KIM (acute kidney injury) (Acute) Abdominal pain (Acute) RUQ abdominal pain (Acute) Cholelithiasis and cholecystitis with obstruction (Acute) Cholelithiasis (Acute) Hypertension complicating in third trimester (Acute) High-risk in third trimester (Acute) Diabetes in (Acute) History of pre-eclampsia (Acute) Acute pancreatitis (Resolved) Hypertension affecting in second trimester (Resolved) Supervision of high risk in second trimester (Resolved) 22-year-old female with chronic pancreatitis 1. I reviewed the patient's CAT scan. I discussed her results with her. She has normal white count but thickening of the gallbladder. I reviewed her CAT scan with her and showed her a normal CAT scan and her CAT scan from the middle of September and her current CAT scan. There is improvement in the most recent CAT scan as her ascites has resolved and her pseudocysts are shrinking. However she still has significant inflammation of the head of the pancreas. 2. I do not believe the patient has acute cholecystitis. I believe the patient 's gallbladder is thickened due to the inflammation in her pancreas. The patient has a normal white count and says that her pain and nausea have improved since yesterday off any antibiotics. I believe performing a cholecystectomy at this point would be too risky due to the amount of inflammation near the infundibulum of her gallbladder. 3. The patient reports that she was never told what kind of diet to be on upon discharge. My official recommendation would be to place a PICC line and put her on TPN and keep her n.p.o. until this resolves. The patient would not like to pursue this treatment at this time so I would be okay with discharging her on a very low-fat diet. I would see her back in 2 weeks and before attempting a laparoscopic cholecystectomy I would like to see a CT scan which shows resolution of this inflammation. 4. I started her on a clear liquid diet. She can be advanced to a nonfat diet as tolerated and discharged home. If she develops any increased vomiting or fever indicative of acute cholecystitis I would recommend cholecystostomy tube being placed. Durga Savage MD Pager: [facility] [address] [place] [address], [address] [place] [address] Office:
--- NOTE | 2017-10-22 11:10 | CASEMGMT ---
RN ARIANNA Face to Face with patient for initial transition planning/care coordination assessment. RN CM introduced self and role at [facility]. Patient lying in bed, alert and oriented. Patient willing to participate in assessment and is able to answer all questions appropriately. Care providers, pharmacy, and demographics verified. See link attached. Patient wishes to discharge home, denies need for home health at this time. Patient states she has no further needs or concerns at this time. CM to follow for discharge planning needs that may arise. Disposition Plan: Patient to discharge home with family support and follow-up plans in place.
[2017-10-22 12:15] LABS: Bedside Glucose 97 mg/dL (70-110)
--- NOTE | 2017-10-22 13:33 | PCM.PROGNOTE ---
Patient Problems: Active and Suspected Problems (Last Reviewed 10/21/17 @ 18:45 by Gerry Ogden MD) Abdominal pain (Acute) RUQ abdominal pain (Acute) Cholelithiasis and cholecystitis with obstruction (Acute) Cholelithiasis (Acute) Subjective: Pt improved overall. Still some abdominal pain, nausea without vomiting today. Surgery recommended no cholecytectomy, instea PICC line and TPN with complete NPO until resolution. Pt was not interested in this, would rather try very low fat diet. - Physical Exam General: Alert, Oriented x3, Cooperative HEENT: Atraumatic, PERRLA, EOMI, Normocephalic Neck: Supple, No JVD, Negative Carotid Bruits Lungs: Clear to auscultation, Normal air movement Cardiovascular: Regular rate, No murmurs Abdomen: Bowel Sounds Present, Tender - RUQ, midepigastric Extremities: No edema, Capillary Refill Less than 3 Seconds Skin: No rashes, No breakdown Musculoskeletal: No Tenderness to Palpation of Joints or Extremities Neurological: Cranial nerves II-XII grossly intact Psych/Mental Status: Normal Affect, Appropriate Vital Signs Temp Pulse Resp BP Pulse Ox 97.4 F L 57 L 14 137/88 H 100 10/22/17 08:15 10/22/17 08:15 10/22/17 08:15 10/22/17 08:15 10/22/17 08:15 Oxygen Delivery Method Room Air Weight: 211 lb 3.245 oz Body Mass Index (BMI) 37.4 Intake and Output for Last 24 Hours 10/20/17 10/21/17 10/22/17 23:59 23:59 23:59 Intake Total 294 / 294 1907 / 1907 Output Total 1800 / 1800 Balance 294 / 294 107 / 107 Laboratory Tests Past 24 Hrs 10/22/17 04:55 Sodium 145 Potassium 4.2 Chloride 110 H Carbon Dioxide 25.0 Anion Gap 10 BUN 13 Creatinine 1.34 H Estim Creat Clear Calc 54.47 Est GFR (MDRD) Af Amer 64 Est GFR (MDRD) Non-Af 53 L BUN/Creatinine Ratio 9.7 L Glucose 94 Calcium 8.9 Total Bilirubin 0.50 AST 31 ALT 38 Alkaline Phosphatase 81 Total Protein 7.3 Albumin 3.5 Globulin 3.8 Albumin/Globulin Ratio 0.9 Lipase 468 H POC Glucose 10/22/17 10/22/17 10/22/17 11:56 05:40 00:16 POC Glucose 97 100 85 10/21/17 16:23 POC Glucose 74 Medical Necessity - Tobacco Use Smoking Status: Never smoker Assessment/Plan All Active Problems (Last Reviewed 10/21/17 @ 18:45 by Gerry Ogden MD) Severe preeclampsia (Acute) KIM (acute kidney injury) (Acute) Abdominal pain (Acute) RUQ abdominal pain (Acute) Cholelithiasis and cholecystitis with obstruction (Acute) Cholelithiasis (Acute) Hypertension complicating in third trimester (Acute) High-risk in third trimester (Acute) Diabetes in (Acute) History of pre-eclampsia (Acute) Acute pancreatitis (Resolved) Hypertension affecting in second trimester (Resolved) Supervision of high risk in second trimester (Resolved) 1. Recurrent biliary pancreatitis - gen surgeon following. low fat diet. Supportive care. No indication for gall bladder removal at this time per surgery. CT shows improvement in pseudocyst. Lipase mildly increased. symptoms improved. 2. KIM - improved. continue fluids. 3. DMt2 metformin held 4. HTN - stable. prn hydralazine 5. Hypertriglyceridemia - no fibrate 2/2 #1 6. Depression - sertraline DVT ppx: heparin DC planning: home if stable tomorrow. This patient was seen by Hebert Gibson PA-C under the supervision of Dr Rivero
[2017-10-22 14:20] VITALS: BP 140/92; PULSE 81; RESP 16; TEMP 36.4; O2SAT 100
--- NOTE | 2017-10-22 16:00 | NURSING ---
attempted to call dietary to have dietitian come speak with patient regarding low fat diet. however, dietitian has left for the day. information was printed out and sent with patient, and she verbalized understanding about a low fat diet.
--- NOTE | 2017-10-22 16:42 | PCM.DC ---
- Discharge Diagnoses Current Active Problems: Current Active and Chronic Problems (Last Reviewed 10/21/17 @ 18:45 by Gerry Ogden MD) Abdominal pain (Acute) RUQ abdominal pain (Acute) Cholelithiasis and cholecystitis with obstruction (Acute) Cholelithiasis (Acute) You will use the following diet at home:: Other - No fat diet as directed by general surgery. Your food should be the consistency of: Regular Your liquids should be the consistency of: Regular/Thin Discharge Activity: Return to Normal Activity Allergies/Adverse Reactions: Allergies Gadolinium-MRI Contrast Medium [DYE] Allergy (Verified 10/21/17 05:33) Rash Medications to take at Discharge Sertraline HCl [Zoloft] 100 mg PO QHS 07/02/17 Ondansetron [Zofran Odt] 4 mg PO Q8H PRN PRN #10 tablet 10/19/17 Acetaminophen [Tylenol Tablet] 650 mg PO Q6H PRN PRN tablet 10/22/17 Oxycodone [Oxyir] 5 mg PO Q6H PRN PRN 2 Days #8 tab 10/22/17 The following prescriptions were given: Oxycodone [Oxyir] 5 mg PO Q6H PRN PRN 2 Days #8 tab PRN Reason: Mod-Severe Pain (4-10/10) Primary Care Physician: Bryant Cardona MD [Primary Care Provider] - Please follow up with your Primary Care Physician in: 1-2 weeks Test Results: Test results from this visit will be discussed in further detail at your follow-up appointment, if applicable. Please Follow Up With: Durga Savage MD When: As directed Proposed Discharge Date: 10/22/17
--- NOTE | 2017-10-22 16:45 | DCINST_ITS ---
- Discharge Diagnoses Current Active Problems: Current Active and Chronic Problems (Last Reviewed 10/21/17 @ 18:45 by Gerry Ogden MD) Abdominal pain (Acute) RUQ abdominal pain (Acute) Cholelithiasis and cholecystitis with obstruction (Acute) Cholelithiasis (Acute) You will use the following diet at home:: Other - No fat diet as directed by general surgery. Your food should be the consistency of: Regular Your liquids should be the consistency of: Regular/Thin Discharge Activity: Return to Normal Activity Allergies/Adverse Reactions: Allergies Gadolinium-MRI Contrast Medium [DYE] Allergy (Verified 10/21/17 05:33) Rash Medications to take at Discharge Sertraline HCl [Zoloft] 100 mg PO QHS 07/02/17 Ondansetron [Zofran Odt] 4 mg PO Q8H PRN PRN #10 tablet 10/19/17 Acetaminophen [Tylenol Tablet] 650 mg PO Q6H PRN PRN tablet 10/22/17 Oxycodone [Oxyir] 5 mg PO Q6H PRN PRN 2 Days #8 tab 10/22/17 The following prescriptions were given: Oxycodone [Oxyir] 5 mg PO Q6H PRN PRN 2 Days #8 tab PRN Reason: Mod-Severe Pain (4-10/10) Primary Care Physician: Bryant Cardona MD [Primary Care Provider] - Please follow up with your Primary Care Physician in: 1-2 weeks Test Results: Test results from this visit will be discussed in further detail at your follow- up appointment, if applicable. Please Follow Up With: Durga Savage MD When: As directed Proposed Discharge Date: 10/22/17
--- NOTE | 2017-10-22 16:46 | PCM.DC.SUM ---
Discharge Date and Diagnosis - Problem List Patient Problems: Active and Suspected Problems (Last Reviewed 10/21/17 @ 18:45 by Gerry Ogden MD) Abdominal pain (Acute) RUQ abdominal pain (Acute) Cholelithiasis and cholecystitis with obstruction (Acute) Cholelithiasis (Acute) Date of Admission: 10/21/17 Date of Discharge: 10/22/17 - Primary Discharge Diagnosis Active and Suspected Problems (Last Reviewed 10/21/17 @ 18:45 by Gerry Ogden MD) Acute recurrent biliary pancreatitis KIM DMt2 HTN Hypertriglyceridemia Depression - Secondary Discharge Diagnosis Chronic Problems (Last Reviewed 10/21/17 @ 18:45 by Gerry Ogden MD) Recurrent acute pancreatitis (Chronic) Depression (Chronic) zoloft Type 2 diabetes mellitus (Chronic) Migraine headache (Chronic) Hyperlipidemia (Chronic) Hospital Course and Treatment Imaging Results: RAD/Abdomen Single View IMPRESSION: Normal x-ray examination of the abdomen and pelvis. CT/Abdomen/Pel W ORAL Cont Only IMPRESSION: 1. Interval clearing of ascites. 2. Probable decrease in pancreatic pseudocysts in the anterior body of the pancreas pancreatic head. The actual decrease in size is difficult to measure since the comparison study have extensive streak artifacts with very limited soft tissue detail. The anterior mesenteric extension of the pancreatic pseudocyst is smaller and it measures 4.7 x 4 cm, previously 10.7 x 6.2 cm. 3. Clearing of large right pleural fluid and reexpansion of right lower lobe atelectases. US/Gallbladder IMPRESSION: 1. Persistent abnormal contracted gallbladder minimal sludge, multiple gallstones and positive sonographic Johnson's sign. This is unchanged. 2. Persistent anechoic cyst anterior to the pancreas measuring 6.5 x 5.6 x 2.2 cm. This is also unchanged. 3. No interval changes or new findings when compared to 10/19/2017. Consults: Janette Valverde Surgery Operations: None Procedures: None Summary of Care Provided: Physical exam on day of discharge: see daily progress note. The patient is a 22 year old F with a hx of biliary pancreatitis, pseudocyst, hypertriglyceridemia, obesity, DMt2, anxiety and depression, HTN, no alcohol use, who presented to the ER with abdominal pain and nausea. She had previously been admitted here for pancreatitis after which she had been transferred to [facility]. She previously had severe KIM requiring dialysis from contrast exposure and dehydration and pancreatitis, and TPN as she was NPO for an extended time. She had been discharged from there and told she would need an outpatient cholecystectomy. She has not had that done yet. In the ER this admission she was felt to be in pancreatitis again with elevated lipase, however CT abdomen showed overall improvement since last with decresed size of the pseudocyst and clearing of ascites. General surgery was consulted and she was admitted to the med/surg floor. She was placed on clears and treated conservatively. She improved significantly overnight. General surgery recommended NPO and TPN via PICC line until resolution, however the patient was not interested. They did not feel surgical intervention was indicated at this time and that she could be discharged to follow up for outpatient GB removal. We advanced her diet to a no fat diet and recommended this going forward. She was discharged home in stable condition. If she develops increased vomiting or fever, Dr. Savage notes that she would likely need a cholecystomy drain placed. Please follow up with your PCP in 1-2 weeks and with surgery as directed. This patient was seen by Hebert Gibson PA-C under the supervision of Dr. Rivero. [] Discharge Diet: - - no fat Discharge Activity: Return to Normal Activity Home Medications: Medications to take at Discharge Sertraline HCl [Zoloft] 100 mg PO QHS 07/02/17 Ondansetron [Zofran Odt] 4 mg PO Q8H PRN PRN #10 tablet 10/19/17 Acetaminophen [Tylenol Tablet] 650 mg PO Q6H PRN PRN tablet 10/22/17 Oxycodone [Oxyir] 5 mg PO Q6H PRN PRN 2 Days #8 tab 10/22/17 Following Prescrptions Were Given to Patient: Oxycodone [Oxyir] 5 mg PO Q6H PRN PRN 2 Days #8 tab PRN Reason: Mod-Severe Pain (4-12/26) Primary Care Physician: Bryant Cardona MD [Primary Care Provider] - Please follow up with your Primary Care Physician in: 1-2 weeks Please Follow Up With: Durga Savage MD When: As directed Disposition: Home Minutes spent on discharge:: 35 Patient Condition:: Stable Medical Necessity - Tobacco Use Smoking Status: Never smoker Meaningful Use Info Meaningful Use Diagnoses (Choose all that apply): None applicable
--- NOTE | 2017-10-22 16:57 | DS.PCM_ITS ---
Discharge Date and Diagnosis - Problem List Patient Problems: Active and Suspected Problems (Last Reviewed 10/21/17 @ 18:45 by Gerry Ogden MD) Abdominal pain (Acute) RUQ abdominal pain (Acute) Cholelithiasis and cholecystitis with obstruction (Acute) Cholelithiasis (Acute) Date of Admission: 10/21/17 Date of Discharge: 10/22/17 - Primary Discharge Diagnosis Active and Suspected Problems (Last Reviewed 10/21/17 @ 18:45 by Gerry Ogden MD) Acute recurrent biliary pancreatitis KIM DMt2 HTN Hypertriglyceridemia Depression - Secondary Discharge Diagnosis Chronic Problems (Last Reviewed 10/21/17 @ 18:45 by Gerry Ogden MD) Recurrent acute pancreatitis (Chronic) Depression (Chronic) zoloft Type 2 diabetes mellitus (Chronic) Migraine headache (Chronic) Hyperlipidemia (Chronic) Hospital Course and Treatment Imaging Results: RAD/Abdomen Single View IMPRESSION: Normal x-ray examination of the abdomen and pelvis. CT/Abdomen/Pel W ORAL Cont Only IMPRESSION: 1. Interval clearing of ascites. 2. Probable decrease in pancreatic pseudocysts in the anterior body of the pancreas pancreatic head. The actual decrease in size is difficult to measure since the comparison study have extensive streak artifacts with very limited soft tissue detail. The anterior mesenteric extension of the pancreatic pseudocyst is smaller and it measures 4.7 x 4 cm, previously 10.7 x 6.2 cm. 3. Clearing of large right pleural fluid and reexpansion of right lower lobe atelectases. US/Gallbladder IMPRESSION: 1. Persistent abnormal contracted gallbladder minimal sludge, multiple gallstones and positive sonographic Johnson's sign. This is unchanged. 2. Persistent anechoic cyst anterior to the pancreas measuring 6.5 x 5.6 x 2.2 cm. This is also unchanged. 3. No interval changes or new findings when compared to 10/19/2017. Consults: Janette Valverde Surgery Operations: None Procedures: None Summary of Care Provided: Physical exam on day of discharge: see daily progress note. The patient is a 22 year old F with a hx of biliary pancreatitis, pseudocyst, hypertriglyceridemia, obesity, DMt2, anxiety and depression, HTN, no alcohol use , who presented to the ER with abdominal pain and nausea. She had previously been admitted here for pancreatitis after which she had been transferred to [facility]. She previously had severe KIM requiring dialysis from contrast exposure and dehydration and pancreatitis, and TPN as she was NPO for an extended time. She had been discharged from there and told she would need an outpatient cholecystectomy. She has not had that done yet. In the ER this admission she was felt to be in pancreatitis again with elevated lipase, however CT abdomen showed overall improvement since last with decresed size of the pseudocyst and clearing of ascites. General surgery was consulted and she was admitted to the med/surg floor. She was placed on clears and treated conservatively. She improved significantly overnight. General surgery recommended NPO and TPN via PICC line until resolution, however the patient was not interested. They did not feel surgical intervention was indicated at this time and that she could be discharged to follow up for outpatient GB removal. We advanced her diet to a no fat diet and recommended this going forward. She was discharged home in stable condition. If she develops increased vomiting or fever, Dr. Savage notes that she would likely need a cholecystomy drain placed. Please follow up with your PCP in 1-2 weeks and with surgery as directed. This patient was seen by Hebert Gibson PA-C under the supervision of Dr. Rivero. [] Discharge Diet: - - no fat Discharge Activity: Return to Normal Activity Home Medications: Medications to take at Discharge Sertraline HCl [Zoloft] 100 mg PO QHS 07/02/17 Ondansetron [Zofran Odt] 4 mg PO Q8H PRN PRN #10 tablet 10/19/17 Acetaminophen [Tylenol Tablet] 650 mg PO Q6H PRN PRN tablet 10/22/17 Oxycodone [Oxyir] 5 mg PO Q6H PRN PRN 2 Days #8 tab 10/22/17 Following Prescrptions Were Given to Patient: Oxycodone [Oxyir] 5 mg PO Q6H PRN PRN 2 Days #8 tab PRN Reason: Mod-Severe Pain (4-12/26) Primary Care Physician: Bryant Cardona MD [Primary Care Provider] - Please follow up with your Primary Care Physician in: 1-2 weeks Please Follow Up With: Durga Savage MD When: As directed Disposition: Home Minutes spent on discharge:: 35 Patient Condition:: Stable Medical Necessity - Tobacco Use Smoking Status: Never smoker Meaningful Use Info Meaningful Use Diagnoses (Choose all that apply): None applicable
[2017-10-22 17:20] LABS: Bedside Glucose 75 mg/dL (70-110)
[2017-10-22 17:55] VITALS: BP 140/91; PULSE 85; RESP 16; TEMP 36.4; O2SAT 100
--- NOTE | 2017-10-25 10:29 | CASEMGMT ---
FOLLOW-UP CALL: Attempted to call patient twice. Received busy signal both times.
== END 2017-10-22 18:03 | disposition home or self-care (01) | DRG 204 ==
LOC: ED 05:57 → MS3 14:32
PROVIDERS: Admitting Provider Internal Medicine; Emergency Provider Emergency Medicine; Family Provider Family Medicine; PCP Family Medicine; Visit Provider Internal Medicine
DX: K85.80 Other acute pancreatitis without necrosis or infection (principal); K80.13 Calculus of gallbladder with acute and chronic cholecystitis with obstruction; N17.0 Acute kidney failure with tubular necrosis; E11.9 Type 2 diabetes mellitus without complications; I10 Essential (primary) hypertension; F41.9 Anxiety disorder, unspecified; F32.9 Major depressive disorder, single episode, unspecified; E66.9 Obesity, unspecified; Z68.37 Body mass index [BMI] 37.0-37.9, adult; Z71.3 Dietary counseling and surveillance; E78.5 Hyperlipidemia, unspecified; K86.1 Other chronic pancreatitis; K83.8 Other specified diseases of biliary tract; N28.9 Disorder of kidney and ureter, unspecified; D64.9 Anemia, unspecified; Z86.79 Personal history of other diseases of the circulatory system; Z87.19 Personal history of other diseases of the digestive system
CPT/HCPCS: 36415; 74018; 74176; 76705; 80048; 80053; 80076; 81001; 81025; 82150; 82962; 83690; 84703; 85025; 96360; 99282; 99284; J7030; A4216; J2405

== ENCOUNTER → 2017-10-30 14:59 | Outpatient (CLI) | payer MEDICAID, SELFPAY ==
[2017-10-30 17:27] LABS: BUN 14 mg/dL (7-18); BUN/Creat Ratio 13.6 RATIO (10-20); Calcium,Total 9.1 mg/dL (8.5-10.1); Chloride 106 mmol/L (98-107); Creatinine, Serum 1.03 mg/dL (0.55-1.02); EST Glomerular Filtration Rate 71 mL/min (>60); Est Glom Filt Rate - Afr Amer 86 mL/min (>60); Glucose 83 mg/dL (74-106); Phosphorus 4.1 mg/dL (2.5-4.9); Potassium 3.7 mmol/L (3.5-5.1); Sodium Level 143 mmol/L (136-145)
[2017-10-30 17:36] LABS: Hematocrit 34.1 % (37-47); Hemoglobin 10.9 g/dl (12.0-15.0); Mean Corpuscular Volume 84.4 fL (81-99); Mean Platelet Vol. 11.5 fl (6.2-12.0); Platelet Count 208 K/mm3 (150-450); RBC Distribution Width CV 15.1 % (11.6-14.6); RBC Distribution Width SD 46.8 fl (35.1-43.9); Red Blood Count 4.04 M/mm3 (4.2-5.4); White Blood Count 4.4 K/mm3 (4.4-11.0)
[2017-10-30 17:38] LABS: Scan Indicated on CBC? Y/N NO
[2017-10-30 17:56] LABS: Protein, Urine (Random) 14.5 mg/dL (<11.9); Protein:Creat Ratio 115 mg/g CRE (0-200)
[2017-10-31 08:28] LABS: PTHIN 43.8 pg/mL (18.4-80.1)
== END ==
PROVIDERS: Family Provider Family Medicine; PCP Family Medicine; Visit Provider Internal Medicine Nephrology
DX: N17.9 Acute kidney failure, unspecified (principal)
CPT/HCPCS: 36415; 80069; 82306; 82570; 83970; 84156; 85027

== ENCOUNTER 2018-01-16 22:26 | Emergency (ER) | payer MEDICAID, SELFPAY ==
[2018-01-16 22:27] VITALS: BP 161/94; PULSE 80; RESP 16; TEMP 36.3; O2SAT 98; BMI 38.0
[2018-01-16 22:43] VITALS: RESP 16
--- NOTE | 2018-01-16 23:03 | ED.VISSUMM ---
- ER Visit Summary Date of Service: 01/16/18 Chief Complaint: Migraine headache History of Present Illness: The patient is a 22 F who presents for 5 hours of a intractable migraine headache. Headache is located in the frontal region with associated nausea, vomiting and mild blurred vision with scotoma. Patient states this is typical for her migraine headaches, however her headaches normally respond to Tylenol and this 1 has not. Patient had a cholecystectomy 1 week ago and has been on oxycodone for it. She has had a low-grade headache that would respond to Tylenol, and she was instructed to stop the oxycodone because it could be causing the headaches. Patient is only taking it at night. Her headache has not improved, and now is been persistent for 5 hours. She denies any fever, numbness or tingling, weakness in the arms or legs, abdominal pain or any other complaints. Patient is diabetic but is not been on her diabetes medications due to a contrast-induced acute renal failure for which she was taken off all medications while her kidneys recover. Patient is having mild polyuria and polydipsia. Physical Examination: Vital signs: afebrile, hemodynamically stable, no hypoxia on room air General: well nourished, well developed, in no distress sitting comfortably with the lights on Skin: warm, dry, no rash, no pallor HEENT: normocephalic and atraumatic; PERRL, EOMI, moist mucous membranes, no scalp tenderness, vesicular rash or temporal artery tenderness Cardiovascular: regular rate and rhythm without murmurs, no peripheral edema, 2+ pulses all distal extremities Respiratory: No increased work of breathing, lungs are clear to auscultation bilaterally, no rales, rhonchi or wheezing Abdominal: Abdomen is soft, mildly tender in the right upper quadrant with normoactive bowel sounds, no guarding or rebound, no masses, laparoscopic incisions are healing well MSK: Moves all extremities, no deformities, normal strength Neuro: Awake and alert, oriented ?4. No facial droop, sensation and motor function intact and symmetric Test Results: Abnormal Lab Results 01/16/18 23:53 Sodium 136 Potassium 4.1 Chloride 102 Carbon Dioxide 25.0 Anion Gap 9 BUN 15 Creatinine 0.77 Estim Creat Clear Calc 94.80 Est GFR (MDRD) Af Amer 120 Est GFR (MDRD) Non-Af 100 BUN/Creatinine Ratio 19.5 Glucose 152 H Calcium 9.0 Medications Given Discontinued Medications Diphenhydramine HCl (Benadryl) 50 mg PO X1 ONE Stop: 01/16/18 23:03 Last Admin: 01/16/18 23:58 Dose: 50 mg Sodium Chloride () 1,000 mls @ 999 mls/hr IV .Q1H1M ONE Stop: 01/17/18 00:02 Last Admin: 01/16/18 23:56 Dose: 999 mls/hr Ketorolac Tromethamine (Toradol) 15 mg IV X1 ONE Stop: 01/16/18 23:03 Last Admin: 01/16/18 23:58 Dose: 15 mg Metoclopramide HCl (Reglan) 10 mg IV X1 ONE Stop: 01/16/18 23:03 Last Admin: 01/16/18 23:58 Dose: 10 mg Emergency Department Course and Treatment: Patient was given a migraine cocktail with IV fluids, Toradol, oral Benadryl, and IV Reglan. Because patient is a diabetic but currently not on her medications, BMP was performed to evaluate her glucose and renal function. Patient showed no signs of dehydration, and glucose was 152. No significant electrolyte derangements. On reevaluation patient's headache had completely resolved. She felt well enough to go home. She will continue her home migraine medication management if any return of headache. Patient discharged home with symptoms resolved. Treatment Plan: [] Disposition: [] Impression: Migraine headache This note was generated with [employer] dictation software. It may contain incorrect words, spelling, and punctuation that were not noted in review of the chart prior to signing ED Disposition - Plan for ED Patient: Disposition: Home or Assisted Living Chief Complaint: Headache Instructions: ED Headache Migraine Referrals: Bryant Cardona MD [Primary Care Provider] - 3-5 Days if not improving Additional Instructions: Please drink plenty of fluids to stay hydrated. Continue your home headache medication regimen as needed. If you have any worsening of your condition or any new concerning symptoms, please return immediately to the emergency department for another evaluation.
[2018-01-16] MEDS: 0.9% Normal Saline 1,000 ML 999 ML IV (23:56)
[2018-01-16] MEDS: DiphenhydrAMINE 25 MG Capsule 50 MG PO (23:58)
[2018-01-16] MEDS: Ketorolac 30 MG/ML Syringe 15 MG IV (23:58)
[2018-01-16] MEDS: Metoclopramide 10 MG/2 ML Vial IV (23:58)
[2018-01-17 00:17] LABS: Anion Gap 9 (5-15); BUN 15 mg/dL (7-18); BUN/Creat Ratio 19.5 RATIO (10-20); Chloride 102 mmol/L (98-107); Creatinine, Serum 0.77 mg/dL (0.55-1.02); EST Glomerular Filtration Rate 100 mL/min (>60); Est Glom Filt Rate - Afr Amer 120 mL/min (>60); Glucose 152 mg/dL (74-106); Potassium 4.1 mmol/L (3.5-5.1); Sodium Level 136 mmol/L (136-145)
--- NOTE | 2018-01-17 01:12 | ED.DEP ---
ED Disposition - Plan for ED Patient: Disposition: Home or Assisted Living Chief Complaint: Headache Instructions: ED Headache Migraine Referrals: Bryant Cardona MD [Primary Care Provider] - 3-5 Days if not improving Additional Instructions: Please drink plenty of fluids to stay hydrated. Continue your home headache medication regimen as needed. If you have any worsening of your condition or any new concerning symptoms, please return immediately to the emergency department for another evaluation.
[2018-01-17 01:21] VITALS: BP 157/98; PULSE 85; RESP 16; O2SAT 99
== END 2018-01-17 01:22 | disposition home or self-care (01) ==
PROVIDERS: Emergency Provider Emergency Medicine; Family Provider Family Medicine; PCP Family Medicine
DX: G43.909 Migraine, unspecified, not intractable, without status migrainosus (principal); E11.9 Type 2 diabetes mellitus without complications; I10 Essential (primary) hypertension; N28.9 Disorder of kidney and ureter, unspecified; Z90.49 Acquired absence of other specified parts of digestive tract; Z79.899 Other long term (current) drug therapy
CPT/HCPCS: 80048; 96361; 96374; 96375; 99284; J7030

== ENCOUNTER 2018-07-28 19:35 | Emergency (ER) | payer MEDICAID, SELFPAY ==
[2018-07-28 19:37] VITALS: BP 149/90; PULSE 89; RESP 16; TEMP 36.6; O2SAT 97; BMI 41.7
--- NOTE | 2018-07-28 19:48 | CT_ITS ---
STUDY: CT ABDOMEN AND PELVIS WITHOUT CONTRAST REASON FOR EXAM: Female, 22 years old. Abdominal pain x1 week RADIATION DOSAGE (If Supplied By Facility): CTDIvol = ( 19.64 ) mGy, DLP = ( 1035.58 ) mGycm TECHNIQUE: Transaxial images were obtained from the dome of the diaphragm to the symphysis pubis without oral contrast, and without intravenous contrast. Sagittal and coronal images were reconstructed. Individualized dose optimization techniques were used for this CT. COMPARISON: Previous study of 10/21/2017 FINDINGS: The visualized lung bases are unremarkable. The visualized portions of the heart are within normal limits. There is decreased attenuation of the liver consistent with steatosis. There are surgical clips in the gallbladder fossa consistent with a prior cholecystectomy. Normal spleen. Normal pancreas. Normal bilateral adrenal glands. Normal right kidney. Normal left kidney. Normal visualized stomach. Normal small intestine. Normal colon. The appendix is visualized and appears normal. Normal abdominal aorta. Normal inferior vena cava. Normal retroperitoneum. Normal urinary bladder. The uterus and adnexal structures are unremarkable. Normal abdominal wall. There is a limbus vertebrae of L1. CT/Abdomen/Pelvis without Cont IMPRESSION: Hepatic steatosis. Status post cholecystectomy. Limbus vertebrae of L1. There has been interval resolution of a possible pancreatic pseudocyst noted on the prior study. There is no evidence of free intra-abdominal or intrapelvic air, fluid, or inflammatory process. Electronically Signed: Milan Damon MD at 21:33 EDT , Service support ,
--- NOTE | 2018-07-28 19:49 | ED.VISSUMM ---
- ER Visit Summary Date of Service: 07/28/18 Chief Complaint: Abdominal pain History of Present Illness: The patient is a 22 F who has had 8 days of abdominal pain. She describes sharp pains throughout her abdomen. It is diffuse and radiates into her back. Nothing seems to make it better or worse. She has had nausea without vomiting. She has had a little bit of diarrhea as well. She denies any urinary symptoms. She saw her PCP this week who diagnosed her with a UTI and put her on Cipro. She states that her pain is not getting any better. Her laboratory studies were normal. She does have a history of pancreatitis. She states her lipase was normal this week. Physical Examination: Vital signs reviewed. HEENT exam unremarkable. Heart is regular rate and rhythm without murmurs. Lungs are clear to auscultation. Abdomen is soft with diffuse tenderness. No guarding or rebound tenderness. Extremities reveal no edema. Skin exam normal. Neurologic exam normal. Test ResultsLaboratory studies show a hemoglobin 11.8, sodium 133, glucose 310. hCG negative. CAT scan of the abdomen and pelvis reveals nothing acute Emergency Department Course and Treatment: Patient was given Toradol and Zofran. There is nothing acute going on inside of her abdomen at this time. I feel she can be discharged home with some Bentyl. She will continue her antibiotics until they are completed. She will follow-up with her PCP Treatment Plan: [] Disposition: Discharge Impression: Abdominal pain This note was generated with [employer] dictation software. It may contain incorrect words, spelling, and punctuation that were not noted in review of the chart prior to signing ED Disposition - Plan for ED Patient: Referrals: Bryant Cardona MD [Primary Care Provider] -
[2018-07-28] MEDS: Ketorolac 30 MG/ML Syringe IV (20:11)
[2018-07-28] MEDS: Ondansetron 4 MG/2 ML Vial IV (20:12)
[2018-07-28 20:24] LABS: Absolute Lymphocyte Count 1.18 X10^3/ul (0.83-4.51); Absolute Neutrophil Count 4.1 X10^3/uL (2.0-7.7); Eosinophil# 0.06 X10^3/uL; Lymphocyte # 1.18 X10^3/ul (4.0)
[2018-07-28 20:57] LABS: Internal QC Validated? YES +Cl - CLEAR BKGD; Pregnancy, Serum, hCG Quali. NEGATIVE Negative
[2018-07-28 21:32] LABS: POSITIVE COUNT NO; POSITIVE DIFFERENTIAL NO; POSITIVE MORPHOLOGY NO; Red Blood Count 4.24 M/mm3 (4.2-5.4); White Blood Count 5.6 K/mm3 (4.4-11.0)
[2018-07-28 21:33] LABS: Basophil% 0.4 % (0-1); Eosinophils% 1.1 % (0-5); Hemoglobin 11.8 g/dl (12.0-15.0); Mean Corp Hgb Conc 33.7 g/gl (32-36); Mean Corpuscular Hgb 27.8 pg (27.0-32.0); Mean Corpuscular Volume 82.5 fL (81-99); Mean Platelet Vol. 10.7 fl (6.2-12.0); Monocyte% 3.6 % (0-10); Neutrophil % 73.2 % (47-70); Platelet Count 172 K/mm3 (150-450); RBC Distribution Width CV 14.2 % (11.6-14.6); RBC Distribution Width SD 43.1 fl (35.1-43.9)
[2018-07-28 21:34] LABS: Basophil# 0.02 X10^3/uL; Neutrophil # 4.13 X10^3/uL (2.7-7.7)
--- NOTE | 2018-07-28 21:52 | ED.RN ---
CALLED LAB ABOUT RESULTS ON CMP, WAS TOLD THAT THE SAMPLE IS VERY LIPEMIC AND IS GOING TT TAKE AWHILE.
[2018-07-28 22:05] LABS: ALB/GLOB Ratio 0.9 RATIO (0.9-2.4); AST(SGOT) 61 U/L (15-37); Alanine Aminotransfer ALT/SGPT 53 U/L (13-56); Albumin, Serum 3.4 g/dL (3.2-5.0); Alkaline Phosphatase 76 U/L (45-117); Anion Gap 13 (5-15); BUN 11 mg/dL (7-18); BUN/Creat Ratio 16.7 RATIO (10-20); Calcium,Total 7.5 mg/dL (8.5-10.1); Chloride 102 mmol/L (98-107); Creatinine, Serum 0.66 mg/dL (0.55-1.02); EST Glomerular Filtration Rate 118 mL/min (>60); Est Glom Filt Rate - Afr Amer 143 mL/min (>60); Globulin 3.9 g/dL (2.2-4.2); Glucose 310 mg/dL (74-106); Lipase 184 U/L (73-393); Potassium 3.6 mmol/L (3.5-5.1); Protein, Total 7.3 g/dL (6.4-8.2); Sodium Level 133 mmol/L (136-145)
--- NOTE | 2018-07-28 22:35 | ED.DEP ---
ED Disposition - Plan for ED Patient: Disposition: Home or Assisted Living Instructions: ED Abdominal Pain Unkn Cause Prescriptions: Dicyclomine HCl [Bentyl] 20 mg PO TIDAC #20 cap Referrals: Bryant Cardona MD [Primary Care Provider] -
[2018-07-28 22:43] VITALS: BP 137/72; PULSE 72; RESP 15; O2SAT 98
== END 2018-07-28 22:47 | disposition home or self-care (01) ==
PROVIDERS: Emergency Provider Emergency Medicine; Family Provider Family Medicine; PCP Family Medicine
DX: R10.9 Unspecified abdominal pain (principal); R11.0 Nausea; N39.0 Urinary tract infection, site not specified
CPT/HCPCS: 74176; 80053; 83690; 84703; 85025; 96374; 96375; 99283; A4216; J2405

== ENCOUNTER → 2018-10-11 | Outpatient (CLI) | payer MEDICAID, SELFPAY ==
[2018-10-11 17:33] LABS: hCG Titer Quant., Serum 40 mIU/mL (1-3)
== END | disposition home or self-care (01) ==
LOC: LAB 16:41
PROVIDERS: Family Provider Family Medicine; PCP Family Medicine; Referring Provider Nurse Practitioner Women's Health; Visit Provider Nurse Practitioner Women's Health
DX: N91.2 Amenorrhea, unspecified (principal)
CPT/HCPCS: 36415; 84702

== ENCOUNTER → 2018-10-13 | Outpatient (CLI) | payer MEDICAID, SELFPAY ==
[2018-10-13 15:19] LABS: hCG Titer Quant., Serum 99 mIU/mL (1-3)
== END | disposition home or self-care (01) ==
LOC: LAB 13:59
PROVIDERS: Family Provider Family Medicine; PCP Family Medicine; Referring Provider Nurse Practitioner Women's Health; Visit Provider Nurse Practitioner Women's Health
DX: N91.2 Amenorrhea, unspecified (principal)
CPT/HCPCS: 36415; 84702

== ENCOUNTER → 2018-11-19 | Outpatient (CLI) | payer MEDICAID, SELFPAY ==
[2018-11-19 14:12] VITALS: BMI 41.7
[2018-11-19 19:43] LABS: Chlamydia Trachomatis by PCR Negative (Negative); Neisserai gonorrhoeae by PCR Negative (Negative); Probe Check PASS; Sample Adequacy Control PASS; Specimen Processing Control PASS
[2018-11-22 12:07] LABS: HPV Reflexed? NOT INDICATED
== END | disposition home or self-care (01) ==
LOC: LABSPEC 17:04
PROVIDERS: Family Provider Family Medicine; PCP Family Medicine; Referring Provider Obstetrics & Gynecology; Visit Provider Obstetrics & Gynecology
DX: O09.90 Supervision of high risk pregnancy, unspecified, unspecified trimester (principal); Z12.4 Encounter for screening for malignant neoplasm of cervix; Z3A.00 Weeks of gestation of pregnancy not specified
CPT/HCPCS: 87086; 87088; 87186; 87491; 87591; 87624; 88175; G0145

== ENCOUNTER → 2018-11-26 | Outpatient (CLI) | payer MEDICAID, SELFPAY ==
[2018-11-19 14:12] VITALS: BMI 41.7
[2018-11-26 13:28] LABS: Absolute Lymphocyte Count 1.25 X10^3/uL (0.83-4.51); Absolute Neutrophil Count 4.8 X10^3/uL (2.0-7.7); Basophil# 0.02 X10^3/uL; Basophil% 0.3 % (0-1); Eosinophil# 0.03 X10^3/uL; Eosinophils% 0.5 % (0-5); Hematocrit 34.8 % (37-47); Hemoglobin 11.9 g/dL (12.0-15.0); Lymphocyte # 1.25 X10^3/ul (4.0); Lymphocyte % 19.7 % (19-41); Mean Corp Hgb Conc 34.2 g/dL (32-36); Mean Corpuscular Hgb 28.5 pg (27.0-32.0); Mean Corpuscular Volume 83.5 fL (81-99); Mean Platelet Vol. 11.3 fl (6.2-12.0); Monocyte# 0.27 X10^3/uL; Monocyte% 4.3 % (0-10); NRBC Flagged by Analyzer 0 % (0-5); Neutrophil # 4.75 X10^3/uL (2.7-7.7); Neutrophil % 74.9 % (47-70); Platelet Count 175 K/mm3 (150-450); RBC Distribution Width CV 14.7 % (11.6-14.6); RBC Distribution Width SD 44.6 fl (35.1-43.9); Red Blood Count 4.17 M/mm3 (4.2-5.4); White Blood Count 6.3 K/mm3 (4.4-11.0)
[2018-11-26 13:57] LABS: Hemoglobin A1c 6.3 % (4.2-6.3)
[2018-11-26 14:16] LABS: ALB/GLOB Ratio 0.8 RATIO (0.9-2.4); AST(SGOT) 38 U/L (15-37); Alanine Aminotransfer ALT/SGPT 42 U/L (13-56); Albumin, Serum 3.1 g/dL (3.2-5.0); Alkaline Phosphatase 58 U/L (45-117); Amylase 20 U/L (25-115); Anion Gap 14 (5-15); BUN 8 mg/dL (7-18); Calcium,Total 8.2 mg/dL (8.5-10.1); Chloride 105 mmol/L (98-107); Creatinine, Serum 0.66 mg/dL (0.55-1.02); EST Glomerular Filtration Rate 117 mL/min (>60); Est Glom Filt Rate - Afr Amer 141 mL/min (>60); Globulin 4.1 g/dL (2.2-4.2); Glucose 137 mg/dL (74-106); Lipase 182 U/L (73-393); Protein, Total 7.2 g/dL (6.4-8.2); Sodium Level 134 mmol/L (136-145); T4 Free Direct 0.77 ng/dL (0.76-1.46); Thyroid Stim Hormone (TSH) 1.96 uIU/mL (0.358-3.74)
[2018-11-26 14:35] LABS: HIV - WCH Non-Reactive (Nonreactive); Rubella IgG 57.5 IU/mL
[2018-11-29 01:48] LABS: Rapid Plasmin Reagin (RPR) NONREACTIVE (NONREACTIVE)
== END | disposition home or self-care (01) ==
LOC: LAB 12:29
PROVIDERS: Family Provider Family Medicine; PCP Family Medicine; Referring Provider Obstetrics & Gynecology; Visit Provider Obstetrics & Gynecology
DX: O09.91 Supervision of high risk pregnancy, unspecified, first trimester (principal); Z3A.00 Weeks of gestation of pregnancy not specified
CPT/HCPCS: 80053; 82150; 83036; 83690; 84439; 84443; 85025; 86592; 86703; 86762; 86850; 86900; 86901

== ENCOUNTER → 2018-12-17 | Outpatient (CLI) | payer MEDICAID, SELFPAY ==
[2018-11-19 14:12] VITALS: BMI 41.7
== END | disposition home or self-care (01) ==
LOC: LAB 15:54
PROVIDERS: Family Provider Family Medicine; PCP Family Medicine; Referring Provider Obstetrics & Gynecology; Visit Provider Obstetrics & Gynecology
DX: Z34.82 Encounter for supervision of other normal pregnancy, second trimester (principal)
CPT/HCPCS: 36415

== ENCOUNTER → 2018-12-20 | Outpatient (CLI) | payer MEDICAID, SELFPAY ==
[2018-12-20 16:34] VITALS: BMI 41.7
[2018-12-20 18:09] LABS: Protein, Urine (Random) 80.2 mg/dL (<11.9); Protein:Creat Ratio 212 mg/g CRE (0-200)
== END | disposition home or self-care (01) ==
LOC: LABSPEC 17:00
PROVIDERS: Family Provider Family Medicine; PCP Family Medicine; Referring Provider Obstetrics & Gynecology; Visit Provider Obstetrics & Gynecology
DX: O09.91 Supervision of high risk pregnancy, unspecified, first trimester (principal); Z3A.00 Weeks of gestation of pregnancy not specified
CPT/HCPCS: 82570; 84156

== ENCOUNTER 2018-12-27 17:09 | Emergency (ER) | payer MEDICAID, SELFPAY ==
[2018-12-20 16:34] VITALS: BMI 41.7
[2018-12-27 17:10] VITALS: BP 156/99; PULSE 106; RESP 14; TEMP 36.6; O2SAT 98; BMI 38.9
[2018-12-27] MEDS: Morphine 4 MG/ML Syringe IV (18:20)
[2018-12-27] MEDS: 0.9% Normal Saline 1,000 ML 1000 ML IV (18:20)
[2018-12-27] MEDS: Ondansetron 4 MG/2 ML Vial IV (18:20)
--- NOTE | 2018-12-27 18:20 | ED.VIS.GEN ---
History of Present Illness Chief Complaint: Nausea/Vomiting Informant: Patient Onset: Today Context: Gradual Onset Timing: Continuous Worsened by: Name Relieved by: nothing Narrative: Patient is a 23-year-old female currently 15 weeks presenting with epigastric abdominal pain. Patient states the pain started today. She notes it worsened after she ate lunch. She states she has a history of pancreatitis secondary to hyperlipidemia and is concerned that was going on today. She also notes that she is having some mild suprapubic pain and on left flank pain. Patient states the epigastric pain radiates to her back and is sharp and constant. She has associated nausea but no vomiting. Patient was also recently diagnosed with diabetes mellitus and started on 4 units of NPH at night. Patient magistrate assistant is Dr. Dustin Calixto. She does comment that she had some mild nausea yesterday but that was typical of her . She has been on [id number] Diclegis for this and it had been helping until today. She denies any fever or chills. She denies any urinary symptoms. She denies any abnormal vaginal bleeding or discharge. Past Medical History - Allergies and Home Meds Allergies/Adverse Reactions: Allergies Gadolinium-MRI Contrast Medium [DYE] Allergy (Verified 12/27/18 17:12) Rash Primary Care Physician: Bryant Cardona MD [Primary Care Provider] - Past Medical History: - - Pancreatitis, hyperlipidemia, hypertension, diabetes Surgical History: cholecystectomy Lives: Spouse/ Significant Other Smoking Status: Never smoker - Family History Maternal Family History: Family History (Last Reviewed 12/20/18 @ 16:22 by Sydni Chen) Mother Diabetes Grandmother Diabetes Grandfather Diabetes Father hyperlipidemia Family History: Reports: Diabetes Paternal Family History: Family History (Last Reviewed 12/20/18 @ 16:22 by Sydni Chen) Mother Diabetes Grandmother Diabetes Grandfather Diabetes Father hyperlipidemia Family History: Reports: Diabetes Review of Systems All systems negative except as indicated General: Reports: Malaise Gastrointestinal: Reports: Abdominal pain, Nausea Physical Exam Vital Signs/Narrative: Vital Signs Temp Pulse Resp BP Pulse Ox 12/27/18 17:10 97.9 F 106 H 14 156/99 H 98 Inital Vital Signs reviewed: Yes General: Well nourished, Well developed, Obese, No Acute Distress Head: Normocephalic, Atraumatic Eyes: Perrl, EOMI ENT: Moist mucous membranes, No rhinorrhea Neck: Supple, Nontender Cardiovascular: Regular rate, Regular rhythm, No murmurs Respiratory: No distress, CTA bilaterally, Chest nontender Abdomen: Soft, Nondistended, Normal bowel sounds, Tender - Epigastric region. Negative for: Guarding, Rebound tenderness, Pulsatile mass, Johnson's sign Back: Nontender, Normal Inspection Extremities: Nontender, No edema Skin: Normal color, No rash Neurological: Alert, Oriented x3, Cranial nerves II-XII grossly intact, Normal Strength, Normal Sensation Psychological: Normal affect, Normal Mood Diagnostic/Tx/Re-eval Laboratory Data 12/27/18 12/27/18 12/27/18 18:05 18:05 18:25 WBC 6.3 RBC 4.04 L Hgb 11.2 L Hct 33.8 L MCV 83.7 MCH 27.7 MCHC 33.1 RDW Std Deviation 45.2 H RDW Coeff of Varun 15.0 H Plt Count 190 MPV 10.3 Immature Gran % (Auto) 0.600 Neut % (Auto) 79.8 H Lymph % (Auto) 15.1 L [place] % (Auto) 3.7 Eos % (Auto) 0.6 Baso % (Auto) 0.2 Absolute Neuts (auto) 5.0 Absolute Lymphs (auto) 0.95 Nucleated RBC % 0 Sodium 137 Potassium 3.5 Chloride 104 Carbon Dioxide 18.0 L Anion Gap 15 BUN 10 Creatinine 0.77 Estim Creat Clear Calc 98.12 Est GFR (MDRD) Af Amer 119 Est GFR (MDRD) Non-Af 99 BUN/Creatinine Ratio 13.0 Glucose 156 H Calcium 8.6 Total Bilirubin 0.40 Direct Bilirubin 0.10 AST 37 ALT 39 Alkaline Phosphatase 52 Total Protein 7.4 Albumin 3.1 L Globulin 4.3 H Lipase 217 Urine Color Yellow Urine Clarity Sl. Cloudy Urine pH 5.0 Ur Specific [place] 1.025 Urine Protein 30 H Urine Glucose (UA) Normal Urine Ketones 15 H Urine Occult Blood 10 H Urine Nitrite Negative Urine Bilirubin Negative Urine Urobilinogen 1 H Ur Leukocyte Esterase 500 H Urine RBC 0-5 SEEN Urine WBC >100 SEEN Ur Squamous Epith Cells 25-50 SEEN Urine Bacteria 3+ Urine Mucus RARE - Medical Decision Making She is evaluated for abdominal pain and second trimester . She is currently nonviable. Bedside ultrasound does show activity with good cardiac activity. This performed by myself. Lipase and other lab work is unremarkable. Do not suspect acute pancreatitis or choledocholithiasis. Discussed the case with patient's NETWORK PROGRAMMER who is agreeable with this. Patient is treated with morphine, fluids and Zofran in the emergency room. On reevaluation she has improvement but still has some discomfort. ED Disposition - Plan for ED Patient: Disposition: Home or Assisted Living Diagnosis: Abdominal pain affecting , UTI (urinary tract infection) Instructions: Understanding Urinary Tract Infections (UTIs), ABDOMINAL PAIN, Early Prescriptions: Cephalexin [Keflex] 500 mg PO Q12 #14 cap Prescription Printed Ondansetron [Zofran Odt] 4 mg PO Q12H PRN PRN #6 tab PRN Reason: Nausea Prescription Printed Referrals: Bryant Cardona MD [Primary Care Provider] - Additional Instructions: Follow-up with Dr. Dustin Calixto on Sunday or Sunday for reevaluation. Drink plenty of fluids. Return to emergency room if you develop worsening symptoms.
[2018-12-27 18:24] LABS: Absolute Lymphocyte Count 0.95 X10^3/uL (0.83-4.51); Basophil# 0.01 X10^3/uL; Basophil% 0.2 % (0-1); Eosinophil# 0.04 X10^3/uL; Eosinophils% 0.6 % (0-5); Hematocrit 33.8 % (37-47); Hemoglobin 11.2 g/dL (12.0-15.0); Lymphocyte # 0.95 X10^3/ul (4.0); Lymphocyte % 15.1 % (19-41); Mean Corp Hgb Conc 33.1 g/dL (32-36); Mean Corpuscular Hgb 27.7 pg (27.0-32.0); Mean Corpuscular Volume 83.7 fL (81-99); Mean Platelet Vol. 10.3 fl (6.2-12.0); Monocyte# 0.23 X10^3/uL; Monocyte% 3.7 % (0-10); NRBC Flagged by Analyzer 0 % (0-5); Neutrophil # 5.01 X10^3/uL (2.7-7.7); Neutrophil % 79.8 % (47-70); Platelet Count 190 K/mm3 (150-450); RBC Distribution Width SD 45.2 fl (35.1-43.9); Red Blood Count 4.04 M/mm3 (4.2-5.4); White Blood Count 6.3 K/mm3 (4.4-11.0)
[2018-12-27 18:40] LABS: AST(SGOT) 37 U/L (15-37); Alanine Aminotransfer ALT/SGPT 39 U/L (13-56); Albumin, Serum 3.1 g/dL (3.2-5.0); Alkaline Phosphatase 52 U/L (45-117); Anion Gap 15 (5-15); BUN 10 mg/dL (7-18); Calcium,Total 8.6 mg/dL (8.5-10.1); Chloride 104 mmol/L (98-107); Creatinine, Serum 0.77 mg/dL (0.55-1.02); EST Glomerular Filtration Rate 99 mL/min (>60); Est Glom Filt Rate - Afr Amer 119 mL/min (>60); Estimated Creatinine Clearance 98.12 ml/min; Globulin 4.3 g/dL (2.2-4.2); Glucose 156 mg/dL (74-106); Lipase 217 U/L (73-393); Potassium 3.5 mmol/L (3.5-5.1); Protein, Total 7.4 g/dL (6.4-8.2); Sodium Level 137 mmol/L (136-145)
[2018-12-27 19:09] LABS: Color, Urine Yellow (Yellow); Glucose, Dipstick Normal (Normal); Ketone-Dipstick 15 mg/dl (Negative); Leukocyte Esterase-Dipstick 500 /ul (Negative); Nitrite-Dipstick Negative (Negative); Occult Blood-Urine 10 /ul (Negative); Protein-Dipstick 30 mg/dl (Negative); Specific Gravity, Urine 1.025 (1.002-1.030); Urine Bilirubin Dipstick Negative (Negative); Urine Clarity Sl. Cloudy (Clear); Urine Urobilinogen 1 mg/dl (Normal)
[2018-12-27 19:14] LABS: White Blood Cells >100 SEEN /hpf (0-5)
[2018-12-27 19:15] LABS: Red Blood Cells-Urine 0-5 SEEN /hpf (0-5)
[2018-12-27 19:16] LABS: Bacteria 3+ /hpf (None Seen); Mucous, Urine RARE /hpf (<or=2+); Squamous Epithelial Cells - UA 25-50 SEEN /hpf (5-10)
[2018-12-27 19:24] VITALS: BP 124/85; PULSE 79; RESP 16; O2SAT 98
[2018-12-27] MEDS: Acetaminophen 500 MG Tablet 1000 MG PO (20:04)
[2018-12-27] MEDS: Cephalexin 250 MG Capsule 500 MG PO (20:04)
[2018-12-27 20:05] VITALS: BP 126/80; PULSE 81; RESP 14; O2SAT 96
== END 2018-12-27 20:13 | disposition home or self-care (01) ==
PROVIDERS: Emergency Provider Emergency Medicine; Family Provider Family Medicine; PCP Family Medicine
DX: O23.42 Unspecified infection of urinary tract in pregnancy, second trimester (principal); O26.892 Other specified pregnancy related conditions, second trimester; R10.13 Epigastric pain; O24.912 Unspecified diabetes mellitus in pregnancy, second trimester; O16.2 Unspecified maternal hypertension, second trimester; O99.212 Obesity complicating pregnancy, second trimester; E66.9 Obesity, unspecified; Z79.4 Long term (current) use of insulin; Z3A.15 15 weeks gestation of pregnancy
CPT/HCPCS: 80048; 80076; 81001; 83690; 85025; 87086; 87088; 96361; 96374; 96375; 99283; J7030; J2405

== ENCOUNTER → 2019-01-02 | Outpatient (CLI) | payer MEDICAID, SELFPAY ==
[2019-01-02 14:56] VITALS: BMI 38.9
== END | disposition home or self-care (01) ==
LOC: LAB 15:27
PROVIDERS: Family Provider Family Medicine; PCP Family Medicine; Referring Provider Nurse Practitioner Women's Health; Visit Provider Nurse Practitioner Women's Health
DX: Z36.9 Encounter for antenatal screening, unspecified (principal)
CPT/HCPCS: 36415

== ENCOUNTER → 2019-01-31 | Outpatient (CLI) | payer MEDICAID, SELFPAY ==
[2019-01-31 12:07] VITALS: BMI 38.9
== END | disposition home or self-care (01) ==
LOC: LABSPEC 14:32
PROVIDERS: Family Provider Family Medicine; PCP Family Medicine; Referring Provider Nurse Practitioner Women's Health; Visit Provider Nurse Practitioner Women's Health
DX: R30.0 Dysuria (principal)
CPT/HCPCS: 87086; 87088

== ENCOUNTER 2019-03-20 12:59 | Emergency (ER) | payer MEDICAID, SELFPAY ==
[2019-03-13 16:52] VITALS: BMI 38.9
[2019-03-20 13:00] VITALS: BP 126/70; PULSE 110; RESP 17; TEMP 36.1; O2SAT 98; BMI 41.1
[2019-03-20 15:36] LABS: Absolute Lymphocyte Count 0.53 X10^3/uL (0.83-4.51); Absolute Neutrophil Count 10.5 X10^3/uL (2.0-7.7); Basophil# 0.02 X10^3/uL; Basophil% 0.2 % (0-1); Eosinophil# 0.02 X10^3/uL; Eosinophils% 0.2 % (0-5); Hematocrit 39.7 % (37-47); Hemoglobin 12.8 g/dL (12.0-15.0); Lymphocyte # 0.53 X10^3/ul (4.0); Lymphocyte % 4.6 % (19-41); Mean Corp Hgb Conc 32.2 g/dL (32-36); Mean Corpuscular Hgb 28.4 pg (27.0-32.0); Mean Platelet Vol. 10.9 fl (6.2-12.0); Monocyte# 0.44 X10^3/uL; Monocyte% 3.8 % (0-10); NRBC Flagged by Analyzer 0 % (0-5); Neutrophil # 10.46 X10^3/uL (2.7-7.7); Neutrophil % 90.2 % (47-70); POSITIVE DIFFERENTIAL YES; Platelet Count 237 K/mm3 (150-450); RBC Distribution Width CV 15.6 % (11.6-14.6); Red Blood Count 4.51 M/mm3 (4.2-5.4); White Blood Count 11.6 K/mm3 (4.4-11.0)
[2019-03-20 15:37] LABS: Differential Indicated SCAN CRITERIA MET
[2019-03-20] MEDS: 0.9% Normal Saline 1,000 ML 1000 ML IV (15:38)
[2019-03-20 15:39] LABS: Mucous, Urine 0 SEEN /hpf (<or=2+)
[2019-03-20] MEDS: Ondansetron 4 MG/2 ML Vial IV (15:39)
[2019-03-20 15:48] LABS: ALB/GLOB Ratio 0.6 RATIO (0.9-2.4); AST(SGOT) 23 U/L (15-37); Alanine Aminotransfer ALT/SGPT 26 U/L (13-56); Albumin, Serum 3.2 g/dL (3.2-5.0); Alkaline Phosphatase 64 U/L (45-117); Anion Gap 8 (5-15); BUN 11 mg/dL (7-18); BUN/Creat Ratio 14.9 RATIO (10-20); Calcium,Total 9.1 mg/dL (8.5-10.1); Chloride 110 mmol/L (98-107); Creatinine, Serum 0.74 mg/dL (0.55-1.02); EST Glomerular Filtration Rate 103 mL/min (>60); Est Glom Filt Rate - Afr Amer 125 mL/min (>60); Glucose 151 mg/dL (74-106); Potassium 3.9 mmol/L (3.5-5.1); Protein, Total 8.2 g/dL (6.4-8.2); Sodium Level 139 mmol/L (136-145)
[2019-03-20 15:52] LABS: Color, Urine Yellow (Yellow); Glucose, Dipstick Normal (Normal); Ketone-Dipstick 5 mg/dl (Negative); Leukocyte Esterase-Dipstick 500 /ul (Negative); Nitrite-Dipstick Positive (Negative); Occult Blood-Urine 25 /ul (Negative); Protein-Dipstick 500 mg/dl (Negative); Specific Gravity, Urine 1.025 (1.002-1.030); Urine Clarity Sl. Cloudy (Clear); Urine Urobilinogen 1 mg/dl (Normal)
[2019-03-20 15:57] LABS: Urine Bilirubin Dipstick 1 mg/dL (Negative)
--- NOTE | 2019-03-20 15:57 | ED.VISSUMM ---
- ER Visit Summary Date of Service: 03/20/19 Chief Complaint: Nausea, vomiting, and diarrhea History of Present Illness: The patient is a 23 F who presents with nausea, vomiting, and diarrhea that began last night. Patient states she has diffuse pain across her abdomen. Patient states it is stabbing. Patient states she has been unable to keep anything down. Patient denies any hematemesis or coffee-ground emesis. Patient states her emesis is just stomach contents. Patient also admits to diarrhea but denies any melena or hematochezia. Patient denies any dysuria or hematuria. Patient is approximately 27 weeks . Patient denies any vaginal bleeding or discharge. Patient denies any lower abdominal cramping. Physical Examination: Vital signs are stable except for mild tachycardia of 110. Patient is afebrile. Patient is in no acute distress. Oral mucosa is pink and moist. Neck is supple. Trachea is midline. There is no JVD. Heart was regular rate and rhythm. Lungs are clear and equal bilaterally. Abdomen is soft. Bowel sounds are normal. There is mild diffuse tenderness. There is no rebound or guarding noted. Cranial nerves II through XII are intact. There are no focal motor or sensory deficits noted. Test Results: CBC shows a slight leukocytosis of 11.6. Comprehensive metabolic profile was essentially within normal limits. Urinalysis showed leukocyte esterase of 500 with positive nitrites. There were 10-25 white blood cells and 10-25 epithelial cells. Emergency Department Course and Treatment: Patient was given IV fluids here. Patient was given Zofran. Patient is feeling better on reevaluation. We will cover the patient for urinary tract infection with Keflex. Patient was given a prescription for Zofran. Patient was instructed to start with a liquid diet and advance as tolerated. Patient was instructed to follow-up with her primary care physician and ASSEMBLING FABRICATOR in 5 to 7 days. Patient understood and was agreeable with the plan. All questions were answered. Disposition: Discharge home Impression: 1. Nausea vomiting and diarrhea 2. Urinary tract infection This note was generated with [employer] software. It may contain incorrect words, spelling, and punctuation that were not noted in review of the chart prior to signing ED Disposition - Plan for ED Patient: Disposition: Home or Assisted Living Diagnosis: Nausea, vomiting, and diarrhea, Urinary tract infection Instructions: VOMITING AND DIARRHEA, Nonspecific (Adult), Bladder Infection, Female (Adult) Prescriptions: Cephalexin [Keflex] 500 mg PO Q6 #12 cap Prescription Printed Ondansetron [Zofran Odt] 4 mg PO Q8H PRN PRN #10 tab PRN Reason: Nausea Prescription Printed Referrals: Bryant Cardona MD [Primary Care Provider] - 5-7 Days Britany Urena MD [STAFF PHYSICIAN] - 5-7 Days
[2019-03-20 16:12] LABS: Bacteria RARE /hpf (None Seen); Red Blood Cells-Urine 0-5 SEEN /hpf (0-5); Squamous Epithelial Cells - UA 10-25 SEEN /hpf (5-10); White Blood Cells 10-25 SEEN /hpf (0-5)
[2019-03-20 16:25] LABS: Platelet Estimate ADEQUATE (ADEQ); Red Cell Morphology NORM C+C NORMAL (NORM C&C)
[2019-03-20 17:12] VITALS: BP 109/65; PULSE 102; RESP 16; O2SAT 98
== END 2019-03-20 17:16 | disposition home or self-care (01) ==
PROVIDERS: Emergency Provider Emergency Medicine; Family Provider Family Medicine; PCP Family Medicine
DX: O23.42 Unspecified infection of urinary tract in pregnancy, second trimester (principal); O21.2 Late vomiting of pregnancy; O99.89 Other specified diseases and conditions complicating pregnancy, childbirth and the puerperium; R19.7 Diarrhea, unspecified; O99.212 Obesity complicating pregnancy, second trimester; O24.112 Pre-existing type 2 diabetes mellitus, in pregnancy, second trimester; E11.9 Type 2 diabetes mellitus without complications; Z79.4 Long term (current) use of insulin; O99.342 Other mental disorders complicating pregnancy, second trimester; F32.9 Major depressive disorder, single episode, unspecified; Z3A.27 27 weeks gestation of pregnancy; Z79.899 Other long term (current) drug therapy
CPT/HCPCS: 80053; 81001; 85025; 96361; 96374; 99283; J7030; A4216; J2405

== ENCOUNTER 2019-04-14 12:30 | Outpatient (CLI) | payer MEDICAID, SELFPAY ==
[2019-04-11 15:08] VITALS: BMI 41.1
[2019-04-14] MEDS: 0.9% NaCl Peripheral Flush Adult/Peds IV ×2 (13:35→15:39)
[2019-04-14 13:53] LABS: Fetal Fibronectin Negative
[2019-04-14 14:07] LABS: Hematocrit 36.2 % (37-47); Hemoglobin 11.6 g/dL (12.0-15.0); Mean Corpuscular Hgb 28.1 pg (27.0-32.0); Mean Corpuscular Volume 87.7 fL (81-99); Platelet Count 196 K/mm3 (150-450); RBC Distribution Width CV 16.7 % (11.6-14.6); RBC Distribution Width SD 52.5 fl (35.1-43.9); Red Blood Count 4.13 M/mm3 (4.2-5.4); White Blood Count 9.1 K/mm3 (4.4-11.0)
[2019-04-14 14:17] VITALS: BMI 43.2
[2019-04-14 14:19] LABS: International Normalized Ratio 1.1; Partial Thromboplast Time 34.6 Seconds (24.1-36.2); Prothrombin Time (Protime)PT. 13.6 SECONDS (11.7-14.9)
[2019-04-14 14:46] LABS: AST(SGOT) 28 U/L (15-37); Alanine Aminotransfer ALT/SGPT 26 U/L (13-56); Creatinine, Serum 0.59 mg/dL (0.55-1.02); EST Glomerular Filtration Rate 135 mL/min (>60); Est Glom Filt Rate - Afr Amer 163 mL/min (>60); Estimated Creatinine Clearance 122.67 ml/min; Uric Acid 6.5 mg/dL (2.6-6.0)
[2019-04-14] MEDS: 0.9% Normal Saline 1,000 ML 999 ML IV (15:40)
[2019-04-14] MEDS: Ondansetron 4 MG/2 ML Vial IV (15:40)
[2019-04-14 15:57] LABS: Protein, Urine (Random) 80.5 mg/dL (<11.9); Protein:Creat Ratio 440 mg/g CRE (0-200)
[2019-04-14] MEDS: 0.9% Normal Saline 1,000 ML 200 ML IV (16:43)
[2019-04-14] MEDS: Betamethasone/Betamethasone 30 MG/5 ML Vial 12 MG IM (17:06)
[2019-04-14] MEDS: Acetaminophen 500 MG Tablet 1000 MG PO (17:12)
--- NOTE | 2019-04-14 20:27 | OB.TRI.NOTE ---
- Problem List (1) Hypertension affecting Status: Acute Qualifiers: Comment: labetalol 100 BID. baby asa weekly BLADIMIR after 32 (2) Supervision of high risk , antepartum Status: Acute Comment: PRR BENNIE 06/15/19 boy Dolly Ruiz Alexx (3) Status: Acute Qualifiers: Comment: carrier screening neg. 14 out of 14, Genetic low risk; AFP negative (4) History of severe pre-eclampsia Status: Acute Comment: nl baseline labs (5) Diabetes in Status: Acute Qualifiers: Comment: sees endocrinology. optho consult. Seeing Dr. Cortes. Growth US at 28 wk, weekly bpps and weekly nsts after 32 weeks deliver at 38 (6) Depression Status: Chronic Qualifiers: Comment: zoloft, encourage counseling. (7) Headache in Status: Acute Comment: seen in triage 04/14-04/16- given BMZ x 2. proteinuria present, elevated uric acid History of Present Illness Date of Service: 04/14/19 Was patient seen by the physician?: Yes Reason For Visit: ABD PAIN/NAUSEA Date of Service: 04/14/19 Final BENNIE Source: US >20 weeks History of Present Illness: 3-year-old G3, P2 at 31 weeks presents with abdominal discomfort nausea and intermittent headache. Patient has a history of chronic hypertension. All blood pressures are within normal limits here. Patient denies any visual changes. Patient took some Tylenol earlier and had minimal improvement in her headache. She denies any sick contacts and her blood sugars are within normal limits today Allergies Gadolinium-MRI Contrast Medium [DYE] Allergy (Verified 04/11/19 15:08) Rash - Pertinent Past Medical History Medical History: Past Medical History (Last Reviewed 04/11/19 @ 15:27 by Jimmie Cortes MD) Depression (Chronic) zoloft, encourage counseling. High triglycerides Hx of transfusion of whole blood Hx: UTI (urinary tract infection) Hyperlipidemia Kidney failure HTN (hypertension) Acute pancreatitis (Resolved) Migraine headache (Resolved) Type 2 diabetes mellitus (Resolved) Hyperlipidemia (Inactive) Surgical History: Past Surgical History (Last Reviewed 04/11/19 @ 15:27 by Jimmie Cortes MD) History of carpal tunnel release of both wrists History of cholecystectomy History of endoscopy Laboratory Studies: Laboratory Tests 04/14/19 04/14/19 04/14/19 Range/Units 15:30 13:35 13:35 WBC (4.4-11.0) K/mm3 RBC (4.2-5.4) M/mm3 Hgb (12.0-15.0) g/dL Hct (37-47) % MCV (81-99) fL MCH (27.0-32.0) pg MCHC (32-36) g/dL RDW Std Deviation (35.1-43.9) fl RDW Coeff of Varun (11.6-14.6) % Plt Count (150-450) K/mm3 MPV (6.2-12.0) fl PT 13.6 (11.7-14.9) SECONDS INR 1.1 APTT 34.6 (24.1-36.2) Seconds Creatinine 0.59 (0.55-1.02) mg/dL Estim Creat Clear Calc 122.67 ml/min Est GFR (MDRD) Af Amer 163 (>60) mL/min Est GFR (MDRD) Non-Af 135 (>60) mL/min Uric Acid 6.5 H (2.6-6.0) mg/dL AST 28 (15-37) U/L ALT 26 (13-56) U/L U Random Total Protein 80.5 H (<11.9) mg/dL Urine Creatinine 183.00 (NO RANGE EST.) mg/dL Protein/Creatinin Ratio 440 H (0-200) mg/g CRE Fibronectin 04/14/19 04/14/19 Range/Units 13:35 13:15 WBC 9.1 (4.4-11.0) K/mm3 RBC 4.13 L (4.2-5.4) M/mm3 Hgb 11.6 L (12.0-15.0) g/dL Hct 36.2 L (37-47) % MCV 87.7 (81-99) fL MCH 28.1 (27.0-32.0) pg MCHC 32.0 (32-36) g/dL RDW Std Deviation 52.5 H (35.1-43.9) fl RDW Coeff of Varun 16.7 H (11.6-14.6) % Plt Count 196 (150-450) K/mm3 MPV 11.0 (6.2-12.0) fl PT (11.7-14.9) SECONDS INR APTT (24.1-36.2) Seconds Creatinine (0.55-1.02) mg/dL Estim Creat Clear Calc ml/min Est GFR (MDRD) Af Amer (>60) mL/min Est GFR (MDRD) Non-Af (>60) mL/min Uric Acid (2.6-6.0) mg/dL AST (15-37) U/L ALT (13-56) U/L U Random Total Protein (<11.9) mg/dL Urine Creatinine (NO RANGE EST.) mg/dL Protein/Creatinin Ratio (0-200) mg/g CRE Fibronectin Negative Review of Systems Constitutional: Denies: Fever Eyes: Denies: Blurred vision HEENT: Reports: Head Aches. Denies: Visual Changes Cardiovascular: Denies: Chest Pain Respiratory: Denies: Cough Gastrointestinal: Reports: Abdominal Pain, Nausea, Vomiting Physical Exam General: Alert, Oriented x3 Cardiovascular: Regular rate Lungs: Normal air movement Abdomen: Soft, Non Tender, Gravid Neurological: Deep Tendon Reflexes 2+/4 and Symmetrical, Neuro grossly intact. Negative for: Clonus NST - FHR Rate Baby A Baseline: 150 Variability:: Moderate Accelerations:: 15 x 15 Decelerations:: None NST Reactive:: Yes FHR Category:: Category I Uterine Activity:: No regular contractions Impression/Plan 23-year-old G3, P2 at 31 weeks presents with headache nausea and vomiting in IV fluids and antiemetics given. Preeclampsia panel shows mildly elevated urine protein which is new this but she had a history of it with her last . Mildly elevated uric acid. All blood pressures are within normal limits. Dose of [place] given and will return in 24 hours for repeat dose. Multi Select Codes - Urinary/Genital Urinary/Genital CPT Codes: 36146-14 non-stress test Interp
== END 2019-04-14 19:07 | disposition home or self-care (01) ==
LOC: OBT 12:43 → WP 17:49
PROVIDERS: PCP Family Medicine; Visit Provider Obstetrics & Gynecology
DX: O16.9 Unspecified maternal hypertension, unspecified trimester (principal); O24.919 Unspecified diabetes mellitus in pregnancy, unspecified trimester; Z3A.00 Weeks of gestation of pregnancy not specified
CPT/HCPCS: 96361; 96374; 59025; 59050; 82565; 82570; 82731; 84156; 84450; 84460; 84550; 85027; 85610; 85730; 96372; 99218; J7030; A4216; G0378; J0702; J2405

== ENCOUNTER 2019-04-15 17:10 | Outpatient (CLI) | payer MEDICAID, SELFPAY ==
[2019-04-14 14:17] VITALS: BMI 43.2
[2019-04-15 17:17] VITALS: BMI 43.0
[2019-04-15] MEDS: Acetaminophen/Butalbital/Caffe 1 Tablet PO (17:47)
[2019-04-15] MEDS: Betamethasone/Betamethasone 30 MG/5 ML Vial 12 MG IM (17:48)
[2019-04-15 18:27] LABS: Absolute Neutrophil Count 9.2 X10^3/uL (2.0-7.7); Basophil# 0.01 X10^3/uL; Basophil% 0.1 % (0-1); Eosinophil# 0.01 X10^3/uL; Eosinophils% 0.1 % (0-5); Hematocrit 31.7 % (37-47); Hemoglobin 10.1 g/dL (12.0-15.0); Lymphocyte % 10.8 % (19-41); Mean Corp Hgb Conc 31.9 g/dL (32-36); Mean Corpuscular Hgb 28.2 pg (27.0-32.0); Mean Corpuscular Volume 88.5 fL (81-99); Mean Platelet Vol. 10.3 fl (6.2-12.0); Monocyte# 0.51 X10^3/uL; Monocyte% 4.6 % (0-10); NRBC Flagged by Analyzer 0 % (0-5); Neutrophil # 9.16 X10^3/uL (2.7-7.7); Neutrophil % 82.8 % (47-70); Platelet Count 187 K/mm3 (150-450); RBC Distribution Width CV 16.5 % (11.6-14.6); RBC Distribution Width SD 53.1 fl (35.1-43.9); Red Blood Count 3.58 M/mm3 (4.2-5.4); White Blood Count 11.1 K/mm3 (4.4-11.0)
[2019-04-15 19:20] LABS: ALB/GLOB Ratio 0.6 RATIO (0.9-2.4); AST(SGOT) 28 U/L (15-37); Alanine Aminotransfer ALT/SGPT 27 U/L (13-56); Albumin, Serum 2.5 g/dL (3.2-5.0); Alkaline Phosphatase 65 U/L (45-117); Anion Gap 11 (5-15); BUN 8 mg/dL (7-18); BUN/Creat Ratio 10.6 RATIO (10-20); Calcium,Total 8.3 mg/dL (8.5-10.1); Chloride 110 mmol/L (98-107); Creatinine, Serum 0.76 mg/dL (0.55-1.02); EST Glomerular Filtration Rate 100 mL/min (>60); Est Glom Filt Rate - Afr Amer 121 mL/min (>60); Estimated Creatinine Clearance 95.23 ml/min; Glucose 140 mg/dL (74-106); Potassium 3.9 mmol/L (3.5-5.1); Protein, Total 6.5 g/dL (6.4-8.2); Sodium Level 139 mmol/L (136-145)
--- NOTE | 2019-04-17 01:11 | OB.TRI.NOTE ---
- Problem List (1) Headache in Status: Acute (2) Hypertension affecting Status: Acute Qualifiers: Comment: labetalol 100 BID. baby asa weekly BLADIMIR after 32 (3) Supervision of high risk , antepartum Status: Acute Comment: PRR BENNIE 06/15/19 Dolly Saavedra Alexx (4) History of severe pre-eclampsia Status: Acute Comment: nl baseline labs History of Present Illness Date of Service: 04/15/19 Was patient seen by the physician?: Yes Reason For Visit: INJECTION, HEADACHE, NON STRESS TEST Date of Service: 04/15/19 Final BENNIE Source: US >20 weeks History of Present Illness: 23-year-old G3, P2 at 31 weeks presents with intermittent headache. Blood pressures were initially elevated and then follow-ups were all within normal limits. Patient has a history of chronic hypertension. Protein is elevated in the urine and patient has had transient GI symptoms for the last few days and has not felt well. She had a history of proteinuria with her last but not the current 1. She is a diabetic that has been well controlled on insulin. She was seen yesterday for the same complaints and liver enzymes platelets were within normal limits with a mildly elevated uric acid and mildly elevated urine protein. Blood pressures were within normal limits yesterday. Allergies Gadolinium-MRI Contrast Medium [DYE] Allergy (Verified 04/11/19 15:08) Rash - Pertinent Past Medical History Medical History: Past Medical History (Last Reviewed 04/11/19 @ 15:27 by Jimmie Cortes MD) Depression (Chronic) zoloft, encourage counseling. High triglycerides Hx of transfusion of whole blood Hx: UTI (urinary tract infection) Hyperlipidemia Kidney failure HTN (hypertension) Acute pancreatitis (Resolved) Migraine headache (Resolved) Type 2 diabetes mellitus (Resolved) Hyperlipidemia (Inactive) Surgical History: Past Surgical History (Last Reviewed 04/11/19 @ 15:27 by Jimmie Cortes MD) History of carpal tunnel release of both wrists History of cholecystectomy History of endoscopy Laboratory Studies: Laboratory Tests 04/15/19 04/15/19 Range/Units 18:13 18:13 WBC 11.1 H (4.4-11.0) K/mm3 RBC 3.58 L (4.2-5.4) M/mm3 Hgb 10.1 L (12.0-15.0) g/dL Hct 31.7 L (37-47) % MCV 88.5 (81-99) fL MCH 28.2 (27.0-32.0) pg MCHC 31.9 L (32-36) g/dL RDW Std Deviation 53.1 H (35.1-43.9) fl RDW Coeff of Varun 16.5 H (11.6-14.6) % Plt Count 187 (150-450) K/mm3 MPV 10.3 (6.2-12.0) fl Immature Gran % (Auto) 1.600 H (0.0-0.9) % Neut % (Auto) 82.8 H (47-70) % Lymph % (Auto) 10.8 L (19-41) % [place] % (Auto) 4.6 (0-10) % Eos % (Auto) 0.1 (0-5) % Baso % (Auto) 0.1 (0-1) % Absolute Neuts (auto) 9.2 H (2.0-7.7) X10^3/uL Absolute Lymphs (auto) 1.20 (0.83-4.51) X10^3/uL Nucleated RBC % 0 (0-5) % Sodium 139 (136-145) mmol/L Potassium 3.9 (3.5-5.1) mmol/L Chloride 110 H (98-107) mmol/L Carbon Dioxide 18.0 L (21.0-32.0) mmol/L Anion Gap 11 (5-15) BUN 8 (7-18) mg/dL Creatinine 0.76 (0.55-1.02) mg/dL Estim Creat Clear Calc 95.23 ml/min Est GFR (MDRD) Af Amer 121 (>60) mL/min Est GFR (MDRD) Non-Af 100 (>60) mL/min BUN/Creatinine Ratio 10.6 (10-20) RATIO Glucose 140 H (74-106) mg/dL Calcium 8.3 L (8.5-10.1) mg/dL Total Bilirubin 0.10 L (0.20-1.00) mg/dL AST 28 (15-37) U/L ALT 27 (13-56) U/L Alkaline Phosphatase 65 (45-117) U/L Total Protein 6.5 (6.4-8.2) g/dL Albumin 2.5 L (3.2-5.0) g/dL Globulin 4.0 (2.2-4.2) g/dL Albumin/Globulin Ratio 0.6 L (0.9-2.4) RATIO Review of Systems HEENT: Reports: Head Aches. Denies: Visual Changes Cardiovascular: Denies: Chest Pain Respiratory: Denies: Cough Gastrointestinal: Reports: Nausea. Denies: Abdominal Pain Genitourinary: Denies: Dysuria Physical Exam General: Alert, Oriented x3 HEENT: Atraumatic, Normocephalic Cardiovascular: Regular rate Lungs: Normal air movement Abdomen: Soft, Non Tender Neurological: Deep Tendon Reflexes 2+/4 and Symmetrical, Neuro grossly intact. Negative for: Clonus NST - FHR Rate Baby A Baseline: 150 Variability:: Moderate Accelerations:: 15 x 15 Decelerations:: None NST Reactive:: Yes FHR Category:: Category I Uterine Activity:: no regular Impression/Plan 23-year-old with history of chronic hypertension and intermittent headache and nausea and Repeat labs stable and within normal limits. Reactive NST. Second dose of Celestone given, increase in insulin was already made and discussed follow-up in office on Sunday Multi Select Codes - Visit Charges Office Visit/Consults: 10453 OV L3 Est - Urinary/Genital Urinary/Genital CPT Codes: 68092-14 non-stress test Interp
== END 2019-04-15 19:40 | disposition home or self-care (01) ==
LOC: WPOUT 17:12 → OBT 17:31
PROVIDERS: PCP Family Medicine; Referring Provider Obstetrics & Gynecology; Visit Provider Obstetrics & Gynecology
DX: O26.893 Other specified pregnancy related conditions, third trimester (principal); R51 Headache; O10.913 Unspecified pre-existing hypertension complicating pregnancy, third trimester; O24.313 Unspecified pre-existing diabetes mellitus in pregnancy, third trimester; E11.9 Type 2 diabetes mellitus without complications; Z79.4 Long term (current) use of insulin; Z3A.31 31 weeks gestation of pregnancy
CPT/HCPCS: 36415; 59025; 59050; 80053; 85025; 94760; 96372; 99218; G0378; J0702

== ENCOUNTER → 2019-04-21 | Outpatient (CLI) | payer MEDICAID, SELFPAY ==
[2019-02-24 08:49] VITALS: BMI 38.9
[2019-04-18 14:59] VITALS: BMI 43.0
--- NOTE | 2019-04-21 14:01 | US_ITS ---
STUDY: OBSTETRICAL ULTRASOUND - BIOPHYSICAL PROFILE REASON FOR EXAM: Female, 23 years old HTN LMP: September 08, 2018. PRIOR ULTRASOUND: None. TECHNIQUE: Transabdominal TECHNICAL QUALITY: Adequate. FINDINGS: There is a single intrauterine fetus. The fetus is in a variable presentation. There is demonstrated cardiac activity with a heart rate of 152 bpm. There is a normal amniotic fluid volume. The largest amniotic fluid pocket measures 4.6 cm. The amniotic fluid index (BLADIMIR) is 13.4 cm. The placenta is fundal in location. There are Grade 1 placental changes. Age by LMP: 32 weeks, 1 days. BENNIE by LMP: June 15, 2019. BIOPHYSICAL PROFILE: Breathing Movements (FBM): 2 Gross Body Movements (GBM): 2 Tone (FT): 2 Amniotic Fluid Volume (AFV): 2 TOTAL SCORE: 8 / 8 US/Biophysical Profile IMPRESSION: Normal biophysical profile of 10/24. Electronically Signed: Popeye Nichols, at 16:00 EST , Service support ,
== END | disposition home or self-care (01) ==
LOC: OPUS 14:01
PROVIDERS: Family Provider Family Medicine; PCP Family Medicine; Referring Provider Obstetrics & Gynecology; Visit Provider Obstetrics & Gynecology
DX: O09.90 Supervision of high risk pregnancy, unspecified, unspecified trimester (principal); O16.9 Unspecified maternal hypertension, unspecified trimester; Z3A.00 Weeks of gestation of pregnancy not specified
CPT/HCPCS: 76818

== ENCOUNTER 2019-04-28 19:12 | Observation (INO) | payer MEDICAID, SELFPAY ==
[2019-04-24 10:56] VITALS: BMI 43.0
--- NOTE | 2019-04-28 14:07 | US_ITS ---
STUDY: OBSTETRICAL ULTRASOUND - BIOPHYSICAL PROFILE REASON FOR EXAM: Female, 23 years old bpp LMP: September 08, 2018. PRIOR ULTRASOUND: Comparison is made with prior examination dated April 21, 2019. TECHNIQUE: Transabdominal TECHNICAL QUALITY: Adequate. FINDINGS: There is a single intrauterine fetus. The fetus is in a breech presentation. There is demonstrated cardiac activity with a heart rate of 150 bpm. There is a normal amniotic fluid volume. The largest amniotic fluid pocket measures 3.5 cm. The amniotic fluid index (BLADIMIR) is 10.9 cm. The placenta is posterior and fundal in location and is not low lying. There are Grade 1 placental changes. Age by LMP: 33 weeks, 1 days. BENNIE by LMP: June 15, 2019. BIOPHYSICAL PROFILE: Breathing Movements (FBM): 0 Gross Body Movements (GBM): 2 Tone (FT): 2 Amniotic Fluid Volume (AFV): 2 TOTAL SCORE: 6 / 8 US/Biophysical Prof W/O Non Stres IMPRESSION: biophysical profile of 6/8. Decreased breathing movements. Electronically Signed: Popeye Nichols, at 15:43 EST , Service support ,
[2019-04-28 16:20] VITALS: BMI 43.4
[2019-04-28 18:27] LABS: Hematocrit 35.4 % (37-47); Hemoglobin 11.2 g/dL (12.0-15.0); Mean Corp Hgb Conc 31.6 g/dL (32-36); Mean Corpuscular Hgb 28.5 pg (27.0-32.0); Mean Corpuscular Volume 90.1 fL (81-99); Mean Platelet Vol. 10.3 fl (6.2-12.0); Platelet Count 212 K/mm3 (150-450); RBC Distribution Width CV 16.3 % (11.6-14.6); Red Blood Count 3.93 M/mm3 (4.2-5.4); White Blood Count 9.5 K/mm3 (4.4-11.0)
[2019-04-28] MEDS: Acetaminophen/Butalbital/Caffe 1 Tablet 2 TABLET PO (18:32)
[2019-04-28 18:34] LABS: Prothrombin Time (Protime)PT. 13.4 SECONDS (11.7-14.9)
[2019-04-28 18:35] LABS: Partial Thromboplast Time 32.5 Seconds (24.1-36.2)
[2019-04-28 18:41] LABS: Protein, Urine (Random) 22.7 mg/dL (<11.9); Protein:Creat Ratio 350 mg/g CRE (0-200)
[2019-04-28 18:50] LABS: AST(SGOT) 40 U/L (15-37); Alanine Aminotransfer ALT/SGPT 34 U/L (13-56); Creatinine, Serum 0.59 mg/dL (0.55-1.02); EST Glomerular Filtration Rate 132 mL/min (>60); Est Glom Filt Rate - Afr Amer 160 mL/min (>60); Estimated Creatinine Clearance 122.67 ml/min; Uric Acid 7.1 mg/dL (2.6-6.0)
[2019-04-28] MEDS: Famotidine 20 MG Tablet PO (22:08)
[2019-04-28] MEDS: Sertraline 100 MG Tablet PO (22:08)
[2019-04-28] MEDS: Labetalol 100 MG Tablet PO (22:08)
[2019-04-28] MEDS: Prenatal Vits Tablet 1 TABLET PO ×2 (22:08)
[2019-04-28] MEDS: Ondansetron ODT 4 MG Tablet PO (22:08)
[2019-04-28] MEDS: Insulin NPH Human 100 UNITS/ML PEN 20 UNITS SC (22:33)
[2019-04-28] MEDS: Insulin Lispro 100 UNIT/ML INSULN.PEN SC (22:35)
--- NOTE | 2019-04-29 01:27 | OB.TRI.NOTE ---
- Problem List (1) Pre-eclampsia affecting , antepartum Status: Acute Comment: persistent proteinuria, elevated uric acid and borderline elevated ast- recommend admitting and follow serial labs (2) Headache in Status: Acute Comment: seen in triage 04/14-04/16- given BMZ x 2. proteinuria present, elevated uric acid. recommend weekly labs, home bp checking (3) Sterilization Status: Acute Comment: titfrancia 19 signed 03/27/19 plan PPTL (4) Hypertension affecting Status: Acute Qualifiers: Comment: labetalol 100 BID. baby asa weekly BLADIMIR after 32 (5) Supervision of high risk , antepartum Status: Acute Comment: PRR BENNIE 06/15/19 boy Hong PC Heri, Dolly Alexx (6) Status: Acute Qualifiers: Comment: carrier screening neg. 14 out of 14, Genetic low risk; AFP negative (7) History of pancreatitis Status: Acute Comment: monitor PRN (8) History of severe pre-eclampsia Status: Acute Comment: nl baseline labs (9) Diabetes in Status: Acute Qualifiers: Comment: sees endocrinology. optho consult. Seeing Dr. Cortes. Growth US at 28 wk, weekly bpps and weekly nsts after 32 weeks deliver at 38 (10) Depression Status: Chronic Qualifiers: Comment: zoloft, encourage counseling. History of Present Illness Date of Service: 04/28/19 Was patient seen by the physician?: Yes Reason For Visit: HTN , HIGH RISK . STANDING ORDER. [id number] Date of Service: 04/28/19 Final BENNIE: 06/15/19 Final BENNIE Source: US >20 weeks Gestational age: 33 Weeks and 2 Days History of Present Illness: 23-year-old G3, P2 at 33 weeks 1 day presents with intermittent headache. Patient had a 6 out of 8 BPP to offer breathing today as part of routine testing and now has reactive NST here but is noted to have increased headaches since yesterday. Patient has had a history of preeclampsia with previous pregnancies and this is complicated by diabetes and chronic hypertension that has been well controlled. Patient had intermittent headache since last week and it has worsened throughout the day today. Repeat labs show elevated but stable proteinuria and elevated uric acid but now her AST is borderline elevated. Blood pressures are all within normal limits. heart tones are reassuring. Fioricet was given and headache decreased significantly. Allergies Gadolinium-MRI Contrast Medium [DYE] Allergy (Verified 04/28/19 16:23) Rash - Pertinent Past Medical History Medical History: Past Medical History (Last Reviewed 04/24/19 @ 10:33 by Sydni Chen) Depression (Chronic) zoloft, encourage counseling. High triglycerides Hx of transfusion of whole blood Hx: UTI (urinary tract infection) Hyperlipidemia Kidney failure HTN (hypertension) Acute pancreatitis (Resolved) Migraine headache (Resolved) Type 2 diabetes mellitus (Resolved) Hyperlipidemia (Inactive) Surgical History: Past Surgical History (Last Reviewed 04/24/19 @ 10:33 by Sydni Chen) History of carpal tunnel release of both wrists History of cholecystectomy History of endoscopy Laboratory Studies: Laboratory Tests 04/28/19 04/28/19 04/28/19 Range/Units 18:10 18:10 18:10 WBC (4.4-11.0) K/mm3 RBC (4.2-5.4) M/mm3 Hgb (12.0-15.0) g/dL Hct (37-47) % MCV (81-99) fL MCH (27.0-32.0) pg MCHC (32-36) g/dL RDW Std Deviation (35.1-43.9) fl RDW Coeff of Varun (11.6-14.6) % Plt Count (150-450) K/mm3 MPV (6.2-12.0) fl PT (11.7-14.9) SECONDS INR APTT (24.1-36.2) Seconds Creatinine 0.59 (0.55-1.02) mg/dL Estim Creat Clear Calc 122.67 ml/min Est GFR (MDRD) Af Amer 160 (>60) mL/min Est GFR (MDRD) Non-Af 132 (>60) mL/min Uric Acid 7.1 H (2.6-6.0) mg/dL AST 40 H (15-37) U/L ALT 34 (13-56) U/L U Random Total Protein 22.7 H (<11.9) mg/dL Urine Creatinine 64.80 (NO RANGE EST.) mg/dL Protein/Creatinin Ratio 350 H (0-200) mg/g CRE Blood Type A POSITIVE Antibody Screen NEGATIVE 04/28/19 04/28/19 Range/Units 18:10 18:10 WBC 9.5 (4.4-11.0) K/mm3 RBC 3.93 L (4.2-5.4) M/mm3 Hgb 11.2 L (12.0-15.0) g/dL Hct 35.4 L (37-47) % MCV 90.1 (81-99) fL MCH 28.5 (27.0-32.0) pg MCHC 31.6 L (32-36) g/dL RDW Std Deviation 53.0 H (35.1-43.9) fl RDW Coeff of Varun 16.3 H (11.6-14.6) % Plt Count 212 (150-450) K/mm3 MPV 10.3 (6.2-12.0) fl PT 13.4 (11.7-14.9) SECONDS INR 1.0 APTT 32.5 (24.1-36.2) Seconds Creatinine (0.55-1.02) mg/dL Estim Creat Clear Calc ml/min Est GFR (MDRD) Af Amer (>60) mL/min Est GFR (MDRD) Non-Af (>60) mL/min Uric Acid (2.6-6.0) mg/dL AST (15-37) U/L ALT (13-56) U/L U Random Total Protein (<11.9) mg/dL Urine Creatinine (NO RANGE EST.) mg/dL Protein/Creatinin Ratio (0-200) mg/g CRE Blood Type Antibody Screen Review of Systems Constitutional: Denies: Fever, Malaise Eyes: Reports: Blurred vision - No spots but feels eye pain with headache HEENT: Reports: Head Aches. Denies: Visual Changes Cardiovascular: Denies: Chest Pain, Palpitations Respiratory: Denies: Cough, Shortness of Breath, Wheezing Gastrointestinal: Denies: Abdominal Pain, Diarrhea, Nausea, Vomiting Genitourinary: Denies: Dysuria, Hematuria Musculoskeletal: Denies: Joint Pain, Muscle pain Skin: Denies: Lesions, Rash Neurological: Denies: Blurred vision, Focal weakness, Headaches Psychiatric: Denies: Anxiety, Depression Endocrine: Denies: Heat/ Cold Intolerance Hematologic/ Lymphatic: Denies: Easy Bruising, Easy Bleeding Physical Exam General: Alert, Cooperative, No apparent distress HEENT: Atraumatic, Normocephalic. Negative for: Thyromegaly, Lymphadenopathy Cardiovascular: Regular rate Lungs: Normal air movement Abdomen: Soft, Non Tender, Gravid Neurological: Deep Tendon Reflexes 2+/4 and Symmetrical, Neuro grossly intact. 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 Negative for: Vulvar lesions Estimated gestational size: Appropriate for gestational size NST - FHR Rate Baby A Baseline: 140 Variability:: Moderate Accelerations:: 15 x 15 Decelerations:: None NST Reactive:: Yes FHR Category:: Category I Uterine Activity:: irregular Multi Select Codes - Visit Charges Observation E&M Codin Initial observation care L3
[2019-04-29] MEDS: Acetaminophen/Butalbital/Caffe 1 Tablet 2 TABLET PO ×2 (02:49→08:20)
[2019-04-29 06:31] LABS: Hematocrit 33.4 % (37-47); Hemoglobin 10.9 g/dL (12.0-15.0); Mean Corp Hgb Conc 32.6 g/dL (32-36); Mean Corpuscular Hgb 28.8 pg (27.0-32.0); Mean Corpuscular Volume 88.4 fL (81-99); Mean Platelet Vol. 10.2 fl (6.2-12.0); Platelet Count 186 K/mm3 (150-450); RBC Distribution Width CV 16.5 % (11.6-14.6); RBC Distribution Width SD 52.2 fl (35.1-43.9); Red Blood Count 3.78 M/mm3 (4.2-5.4); White Blood Count 8.1 K/mm3 (4.4-11.0)
[2019-04-29 06:40] LABS: International Normalized Ratio 1.2; Prothrombin Time (Protime)PT. 14.6 SECONDS (11.7-14.9)
[2019-04-29 06:41] LABS: Partial Thromboplast Time 33.8 Seconds (24.1-36.2)
[2019-04-29 06:47] LABS: AST(SGOT) 33 U/L (15-37); Alanine Aminotransfer ALT/SGPT 31 U/L (13-56); Creatinine, Serum 0.64 mg/dL (0.55-1.02); EST Glomerular Filtration Rate 121 mL/min (>60); Est Glom Filt Rate - Afr Amer 146 mL/min (>60); Estimated Creatinine Clearance 113.09 ml/min; Protein, Urine (Random) 17.5 mg/dL (<11.9); Uric Acid 7.5 mg/dL (2.6-6.0)
[2019-04-29 06:48] LABS: Protein:Creat Ratio 314 mg/g CRE (0-200)
--- NOTE | 2019-04-29 08:00 | US_ITS ---
STUDY: OBSTETRICAL ULTRASOUND - BIOPHYSICAL PROFILE REASON FOR EXAM: Female, 23 years old PREECLAMPSIA LMP: September 08, 2018. PRIOR ULTRASOUND: Comparison is made with prior examination dated April 28, 2019. TECHNIQUE: Transabdominal TECHNICAL QUALITY: Adequate. FINDINGS: There is a single intrauterine fetus. The fetus is in a transverse lie with the head on the maternal right side. There is demonstrated cardiac activity with a heart rate of 142 bpm. There is a normal amniotic fluid volume. The largest amniotic fluid pocket measures 4.7 cm. The amniotic fluid index (BLADIMIR) is 14.6 cm. The placenta is fundal and posterior in location. There are Grade 1 placental changes. Age by LMP: 33 weeks, 2 days. BENNIE by LMP: June 15, 2019. BIOPHYSICAL PROFILE: Breathing Movements (FBM): 0 Gross Body Movements (GBM): 2 Tone (FT): 2 Amniotic Fluid Volume (AFV): 2 TOTAL SCORE: / 8 US/Biophysical Prof W/O Non Stres IMPRESSION: biophysical profile of 08/24. Decreased breathing movements Electronically Signed: Popeye Nichols, at 9:58 EST , Service support ,
[2019-04-29 08:36] LABS: Hepatitis B Surface Antigen Non-Reactive (Nonreactive)
== END 2019-04-29 10:00 | disposition home or self-care (01) ==
LOC: WP 04-29 07:34
PROVIDERS: Admitting Provider Obstetrics & Gynecology; Family Provider Family Medicine; PCP Family Medicine; Referring Provider Obstetrics & Gynecology; Visit Provider Obstetrics & Gynecology
DX: O26.893 Other specified pregnancy related conditions, third trimester (principal); R51 Headache; O14.93 Unspecified pre-eclampsia, third trimester; O24.113 Pre-existing type 2 diabetes mellitus, in pregnancy, third trimester; E11.9 Type 2 diabetes mellitus without complications; Z3A.33 33 weeks gestation of pregnancy
CPT/HCPCS: 36415; 59025; 59050; 76819; 82565; 82570; 84156; 84450; 84460; 84550; 85027; 85610; 85730; 86850; 86900; 86901; 87340; 99218; G0378

== ENCOUNTER 2019-05-01 04:45 | Outpatient (CLI) | payer MEDICAID, SELFPAY ==
[2019-05-01 05:16] VITALS: BMI 44.9
[2019-05-01 05:16] LABS: Absolute Lymphocyte Count 1.77 X10^3/uL (0.83-4.51); Basophil# 0.01 X10^3/uL; Basophil% 0.1 % (0-1); Eosinophil# 0.04 X10^3/uL; Eosinophils% 0.4 % (0-5); Hematocrit 32.6 % (37-47); Hemoglobin 10.4 g/dL (12.0-15.0); Lymphocyte # 1.77 X10^3/ul (4.0); Lymphocyte % 18.8 % (19-41); Mean Corp Hgb Conc 31.9 g/dL (32-36); Mean Corpuscular Hgb 28.4 pg (27.0-32.0); Mean Corpuscular Volume 89.1 fL (81-99); Mean Platelet Vol. 10.2 fl (6.2-12.0); Monocyte# 0.51 X10^3/uL; Monocyte% 5.4 % (0-10); NRBC Flagged by Analyzer 0 % (0-5); Neutrophil # 6.97 X10^3/uL (2.7-7.7); Neutrophil % 73.8 % (47-70); Platelet Count 176 K/mm3 (150-450); RBC Distribution Width CV 16.4 % (11.6-14.6); RBC Distribution Width SD 53.1 fl (35.1-43.9); Red Blood Count 3.66 M/mm3 (4.2-5.4); White Blood Count 9.4 K/mm3 (4.4-11.0)
[2019-05-01 05:37] LABS: ALB/GLOB Ratio 0.6 RATIO (0.9-2.4); AST(SGOT) 27 U/L (15-37); Alanine Aminotransfer ALT/SGPT 30 U/L (13-56); Albumin, Serum 2.6 g/dL (3.2-5.0); Alkaline Phosphatase 73 U/L (45-117); Anion Gap 7 (5-15); BUN 7 mg/dL (7-18); BUN/Creat Ratio 12.3 RATIO (10-20); Calcium,Total 8.3 mg/dL (8.5-10.1); Chloride 113 mmol/L (98-107); Creatinine, Serum 0.57 mg/dL (0.55-1.02); EST Glomerular Filtration Rate 139 mL/min (>60); Est Glom Filt Rate - Afr Amer 169 mL/min (>60); Estimated Creatinine Clearance 126.98 ml/min; Glucose 121 mg/dL (74-106); Lipase 149 U/L (73-393); Potassium 3.7 mmol/L (3.5-5.1); Protein, Total 6.6 g/dL (6.4-8.2); Sodium Level 139 mmol/L (136-145)
[2019-05-01 06:13] LABS: Bacteria 0 SEEN /hpf (None Seen); Mucous, Urine 0 SEEN /hpf (<or=2+); Red Blood Cells-Urine 0 SEEN /hpf (0-5)
[2019-05-01 06:16] LABS: Color, Urine Yellow (Yellow); Glucose, Dipstick Normal (Normal); Ketone-Dipstick Negative (Negative); Leukocyte Esterase-Dipstick 100 /ul (Negative); Nitrite-Dipstick Negative (Negative); Occult Blood-Urine Negative /ul (Negative); Protein-Dipstick 30 mg/dl (Negative); Urine Bilirubin Dipstick Negative (Negative); Urine Clarity Clear (Clear); Urine Urobilinogen Normal (Normal)
[2019-05-01 06:21] LABS: Squamous Epithelial Cells - UA 10-25 SEEN /hpf (5-10); White Blood Cells 5-10 SEEN /hpf (0-5)
--- NOTE | 2019-05-01 06:52 | US_ITS ---
STUDY: OBSTETRICAL ULTRASOUND - BIOPHYSICAL PROFILE REASON FOR EXAM: Female, 23 years old VARIABLE HR LMP: September 08, 2018. PRIOR ULTRASOUND: Comparison is made with prior examination of April 29, 2019. TECHNIQUE: Transabdominal TECHNICAL QUALITY: Adequate. FINDINGS: There is a single intrauterine fetus. The fetus is in a breech presentation. There is demonstrated cardiac activity with a heart rate of 121 bpm. There is a normal amniotic fluid volume. The largest amniotic fluid pocket measures 5.3 cm. The amniotic fluid index (BALDIMIR) is 13.9 cm. The placenta is fundal and posterior in location. There are Grade 0 placental changes. Age by LMP: 33 weeks, 4 days. BENNIE by LMP: June 15, 2019. BIOPHYSICAL PROFILE: Breathing Movements (FBM): 0 Gross Body Movements (GBM): 2 Tone (FT): 2 Amniotic Fluid Volume (AFV): 2 TOTAL SCORE: US/Biophysical Prof W/O Non Stres IMPRESSION: biophysical profile of 08/24. Electronically Signed: Popeye Nichols, at 8:24 EST , Service support ,
--- NOTE | 2019-05-01 09:39 | OB.TRI.PN ---
Progress Notes Date of Service: 05/01/19 Progress Note: right sided pain nl labs seen by NICK ESPARZA stable 08/24 bpp off for breathing, 10/26 with reactive nst fht 140 moderate variability reactive isolated variable toco no regular a/p right side pain reactive nst dc home kick counts preeclampsia precautions Laboratory Studies: Laboratory Tests 05/01/19 05/01/19 05/01/19 Range/Units 05:00 05:00 05:00 WBC 9.4 (4.4-11.0) K/mm3 RBC 3.66 L (4.2-5.4) M/mm3 Hgb 10.4 L (12.0-15.0) g/dL Hct 32.6 L (37-47) % MCV 89.1 (81-99) fL MCH 28.4 (27.0-32.0) pg MCHC 31.9 L (32-36) g/dL RDW Std Deviation 53.1 H (35.1-43.9) fl RDW Coeff of Varun 16.4 H (11.6-14.6) % Plt Count 176 (150-450) K/mm3 MPV 10.2 (6.2-12.0) fl Immature Gran % (Auto) 1.500 H (0.0-0.9) % Neut % (Auto) 73.8 H (47-70) % Lymph % (Auto) 18.8 L (19-41) % [place] % (Auto) 5.4 (0-10) % Eos % (Auto) 0.4 (0-5) % Baso % (Auto) 0.1 (0-1) % Absolute Neuts (auto) 7.0 (2.0-7.7) X10^3/uL Absolute Lymphs (auto) 1.77 (0.83-4.51) X10^3/uL Nucleated RBC % 0 (0-5) % Sodium 139 (136-145) mmol/L Potassium 3.7 (3.5-5.1) mmol/L Chloride 113 H (98-107) mmol/L Carbon Dioxide 19.0 L (21.0-32.0) mmol/L Anion Gap 7 (5-15) BUN 7 (7-18) mg/dL Creatinine 0.57 (0.55-1.02) mg/dL Estim Creat Clear Calc 126.98 ml/min Est GFR (MDRD) Af Amer 169 (>60) mL/min Est GFR (MDRD) Non-Af 139 (>60) mL/min BUN/Creatinine Ratio 12.3 (10-20) RATIO Glucose 121 H (74-106) mg/dL Calcium 8.3 L (8.5-10.1) mg/dL Total Bilirubin 0.30 (0.20-1.00) mg/dL AST 27 (15-37) U/L ALT 30 (13-56) U/L Alkaline Phosphatase 73 (45-117) U/L Total Protein 6.6 (6.4-8.2) g/dL Albumin 2.6 L (3.2-5.0) g/dL Globulin 4.0 (2.2-4.2) g/dL Albumin/Globulin Ratio 0.6 L (0.9-2.4) RATIO Lipase 149 (73-393) U/L Urine Color Yellow (Yellow) Urine Clarity Clear (Clear) Urine pH 6.0 (5.0 - 8.0) Ur Specific [place] 1.020 (1.002-1.030) Urine Protein 30 H (Negative) mg/dl Urine Glucose (UA) Normal (Normal) mg/dl Urine Ketones Negative (Negative) mg/dl Urine Occult Blood Negative (Negative) /ul Urine Nitrite Negative (Negative) Urine Bilirubin Negative (Negative) mg/dL Urine Urobilinogen Normal (Normal) mg/dl Ur Leukocyte Esterase 100 H (Negative) /ul Urine RBC 0 SEEN (0-5) /hpf Urine WBC 5-10 SEEN (0-5) /hpf Ur Squamous Epith Cells 10-25 SEEN (5-10) /hpf Urine Bacteria 0 SEEN (None Seen) /hpf Urine Mucus 0 SEEN (<or=2+) /hpf Multi Select Codes - Urinary/Genital Urinary/Genital CPT Codes: 49699-42 non-stress test Interp
== END 2019-05-01 08:50 | disposition home or self-care (01) ==
LOC: WPOUT 04:54 → WP 04:54
PROVIDERS: PCP Family Medicine; Visit Provider Obstetrics & Gynecology
DX: O26.899 Other specified pregnancy related conditions, unspecified trimester (principal); Z3A.00 Weeks of gestation of pregnancy not specified
CPT/HCPCS: 36415; 59025; 59050; 76819; 80053; 81001; 83690; 85025; 99218; G0378

== ENCOUNTER → 2019-05-05 | Outpatient (CLI) | payer MEDICAID, SELFPAY ==
[2019-05-01 05:16] VITALS: BMI 44.9
--- NOTE | 2019-05-05 14:00 | US_ITS ---
STUDY: OBSTETRICAL ULTRASOUND - BIOPHYSICAL PROFILE REASON FOR EXAM: Female, 23 years old HIGH RISK , HTN LMP: September 08, 2018. PRIOR ULTRASOUND: Comparison is made with prior examination dated May 01, 2019. TECHNIQUE: Transabdominal TECHNICAL QUALITY: Adequate. FINDINGS: There is a single intrauterine fetus. The fetus is in a breech presentation. There is demonstrated cardiac activity with a heart rate of 135 bpm. There is a normal amniotic fluid volume. The largest amniotic fluid pocket measures 4.5 cm. The amniotic fluid index (BLADIMIR) is 12.9 cm. The placenta is fundal in location. There are Grade 1 placental changes. Age by LMP: 34 weeks, 1 days. BENNIE by LMP: June 15, 2019.. BIOPHYSICAL PROFILE: Breathing Movements (FBM): 2 Gross Body Movements (GBM): 2 Tone (FT): 2 Amniotic Fluid Volume (AFV): 2 TOTAL SCORE: 8 / 8 US/Biophysical Prof W/O Non Stres IMPRESSION: Normal biophysical profile of 10/24. Electronically Signed: Popeye Nichols, at 12:11 EST , Service support ,
== END | disposition home or self-care (01) ==
PROVIDERS: Family Provider Family Medicine; PCP Family Medicine; Referring Provider Obstetrics & Gynecology; Visit Provider Obstetrics & Gynecology
DX: O16.9 Unspecified maternal hypertension, unspecified trimester (principal); Z3A.00 Weeks of gestation of pregnancy not specified
CPT/HCPCS: 76819

== ENCOUNTER 2019-05-06 10:25 | Outpatient (CLI) | payer MEDICAID, SELFPAY ==
[2019-05-06 10:01] VITALS: BMI 44.9
[2019-05-06 11:10] VITALS: BMI 44.1
[2019-05-06] MEDS: 0.9% NaCl Peripheral Flush Adult/Peds IV (11:20)
[2019-05-06 11:51] LABS: Hematocrit 37.8 % (37-47); Hemoglobin 11.8 g/dL (12.0-15.0); Mean Corp Hgb Conc 31.2 g/dL (32-36); Mean Corpuscular Hgb 27.8 pg (27.0-32.0); Mean Corpuscular Volume 89.2 fL (81-99); Mean Platelet Vol. 10.6 fl (6.2-12.0); Platelet Count 194 K/mm3 (150-450); RBC Distribution Width CV 17.2 % (11.6-14.6); RBC Distribution Width SD 54.4 fl (35.1-43.9); Red Blood Count 4.24 M/mm3 (4.2-5.4); White Blood Count 9.6 K/mm3 (4.4-11.0)
[2019-05-06 12:02] LABS: AST(SGOT) 26 U/L (15-37); Alanine Aminotransfer ALT/SGPT 29 U/L (13-56); Creatinine, Serum 0.68 mg/dL (0.55-1.02); EST Glomerular Filtration Rate 114 mL/min (>60); Est Glom Filt Rate - Afr Amer 138 mL/min (>60); Uric Acid 7.4 mg/dL (2.6-6.0)
[2019-05-06 12:06] LABS: International Normalized Ratio 1.1; Partial Thromboplast Time 32.2 Seconds (24.1-36.2); Prothrombin Time (Protime)PT. 13.9 SECONDS (11.7-14.9)
[2019-05-06 12:08] LABS: Color, Urine Yellow (Yellow); Glucose, Dipstick Normal (Normal); Ketone-Dipstick Negative (Negative); Leukocyte Esterase-Dipstick 100 /ul (Negative); Nitrite-Dipstick Negative (Negative); Occult Blood-Urine Negative /ul (Negative); Protein-Dipstick 30 mg/dl (Negative); Specific Gravity, Urine 1.015 (1.002-1.030); Urine Bilirubin Dipstick Negative (Negative); Urine Clarity Sl. Cloudy (Clear); Urine Urobilinogen Normal (Normal)
[2019-05-06 12:11] LABS: Protein, Urine (Random) 25.4 mg/dL (<11.9); Protein:Creat Ratio 485 mg/g CRE (0-200)
[2019-05-06 12:26] LABS: Bacteria 1+ /hpf (None Seen); Mucous, Urine RARE /hpf (<or=2+); Red Blood Cells-Urine 0 SEEN /hpf (0-5); Squamous Epithelial Cells - UA 5-10 SEEN /hpf (5-10); White Blood Cells 5-10 SEEN /hpf (0-5)
--- NOTE | 2019-05-09 04:57 | OB.TRI.PN_ITS ---
Progress Notes Date of Service: 05/06/19 Progress Note: Patient presents for triage evaluation secondary to headache, borderline blood pressures FHT: 150Moderate variability reactive no decelerations category I tracing [place]: no regularContractions Assessment and plan: nl to mildlly elevated bps now, stable, ESPARZA improved Reactive NST, reassuring maternal and status patient discharged to home to follow-up in office the end of the week. See problem list details for additional plan information. Laboratory Studies: Laboratory Tests 05/06/19 05/06/19 05/06/19 Range/Units 11:45 11:20 11:20 WBC (4.4-11.0) K/mm3 RBC (4.2-5.4) M/mm3 Hgb (12.0-15.0) g/dL Hct (37-47) % MCV (81-99) fL MCH (27.0-32.0) pg MCHC (32-36) g/dL RDW Std Deviation (35.1-43.9) fl RDW Coeff of Varun (11.6-14.6) % Plt Count (150-450) K/mm3 MPV (6.2-12.0) fl PT 13.9 (11.7-14.9) SECONDS INR 1.1 APTT 32.2 (24.1-36.2) Seconds Creatinine 0.68 (0.55-1.02) mg/dL Est GFR (MDRD) Af Amer 138 (>60) mL/min Est GFR (MDRD) Non-Af 114 (>60) mL/min Uric Acid 7.4 H (2.6-6.0) mg/dL AST 26 (15-37) U/L ALT 29 (13-56) U/L Urine Color Yellow (Yellow) Urine Clarity Sl. Cloudy (Clear) Urine pH 6.0 (5.0 - 8.0) Ur Specific [place] 1.015 (1.002-1.030) Urine Protein 30 H (Negative) mg/dl Urine Glucose (UA) Normal (Normal) mg/dl Urine Ketones Negative (Negative) mg/dl Urine Occult Blood Negative (Negative) /ul Urine Nitrite Negative (Negative) Urine Bilirubin Negative (Negative) mg/dL Urine Urobilinogen Normal (Normal) mg/dl Ur Leukocyte Esterase 100 H (Negative) /ul Urine RBC 0 SEEN (0-5) /hpf Urine WBC 5-10 SEEN (0-5) /hpf Ur Squamous Epith Cells 5-10 SEEN (5-10) /hpf Urine Bacteria 1+ (None Seen) /hpf Urine Mucus RARE (<or=2+) /hpf U Random Total Protein (<11.9) mg/dL Urine Creatinine (NO RANGE EST.) mg/dL Protein/Creatinin Ratio (0-200) mg/g CRE 05/06/19 05/06/19 Range/Units 11:20 09:40 WBC 9.6 (4.4-11.0) K/mm3 RBC 4.24 (4.2-5.4) M/mm3 Hgb 11.8 L (12.0-15.0) g/dL Hct 37.8 (37-47) % MCV 89.2 (81-99) fL MCH 27.8 (27.0-32.0) pg MCHC 31.2 L (32-36) g/dL RDW Std Deviation 54.4 H (35.1-43.9) fl RDW Coeff of Varun 17.2 H (11.6-14.6) % Plt Count 194 (150-450) K/mm3 MPV 10.6 (6.2-12.0) fl PT (11.7-14.9) SECONDS INR APTT (24.1-36.2) Seconds Creatinine (0.55-1.02) mg/dL Est GFR (MDRD) Af Amer (>60) mL/min Est GFR (MDRD) Non-Af (>60) mL/min Uric Acid (2.6-6.0) mg/dL AST (15-37) U/L ALT (13-56) U/L Urine Color (Yellow) Urine Clarity (Clear) Urine pH (5.0 - 8.0) Ur Specific [place] (1.002-1.030) Urine Protein (Negative) mg/dl Urine Glucose (UA) (Normal) mg/dl Urine Ketones (Negative) mg/dl Urine Occult Blood (Negative) /ul Urine Nitrite (Negative) Urine Bilirubin (Negative) mg/dL Urine Urobilinogen (Normal) mg/dl Ur Leukocyte Esterase (Negative) /ul Urine RBC (0-5) /hpf Urine WBC (0-5) /hpf Ur Squamous Epith Cells (5-10) /hpf Urine Bacteria (None Seen) /hpf Urine Mucus (<or=2+) /hpf U Random Total Protein 25.4 H (<11.9) mg/dL Urine Creatinine 52.40 (NO RANGE EST.) mg/dL Protein/Creatinin Ratio 485 H (0-200) mg/g CRE - Problem List (1) Pre-eclampsia affecting , antepartum Status: Acute Comment: persistent proteinuria, elevated uric acid and borderline elevated ast- recommend admitting and follow serial labs Multi Select Codes - Urinary/Genital Urinary/Genital CPT Codes: 27056-04 non-stress test Interp
== END 2019-05-06 13:15 | disposition home or self-care (01) ==
LOC: WPOUT 10:39 → WP 10:39
PROVIDERS: PCP Family Medicine; Referring Provider Obstetrics & Gynecology; Visit Provider Obstetrics & Gynecology
DX: O14.90 Unspecified pre-eclampsia, unspecified trimester (principal); Z3A.00 Weeks of gestation of pregnancy not specified
CPT/HCPCS: 36415; 59050; 81001; 82565; 82570; 84156; 84450; 84460; 84550; 85027; 85610; 85730; 87086; 87088; 96372; 99218; A4216; G0378

== ENCOUNTER 2019-05-08 15:51 | Inpatient (IN) | payer MEDICAID, SELFPAY ==
[2019-05-08] VITALS (10 sets, daily range): BP systolic 113–166; BP diastolic 63–72; PULSE 95–116; RESP 18–24; TEMP 35.9–36.3; O2SAT 95–99; BMI 44.1; BMI 43.2
[2019-05-08] MEDS: 0.9% Saline Lock 10 ML Syringe IV (14:30)
[2019-05-08 14:52] LABS: Protein, Urine (Random) 96.9 mg/dL (<11.9); Protein:Creat Ratio 336 mg/g CRE (0-200)
[2019-05-08 15:01] LABS: Hematocrit 37.4 % (37-47); Hemoglobin 12.1 g/dL (12.0-15.0); Mean Corp Hgb Conc 32.4 g/dL (32-36); Mean Corpuscular Hgb 28.2 pg (27.0-32.0); Mean Corpuscular Volume 87.2 fL (81-99); Mean Platelet Vol. 10.2 fl (6.2-12.0); Platelet Count 214 K/mm3 (150-450); RBC Distribution Width CV 16.9 % (11.6-14.6); RBC Distribution Width SD 52.6 fl (35.1-43.9); Red Blood Count 4.29 M/mm3 (4.2-5.4)
[2019-05-08 15:10] LABS: International Normalized Ratio 1.1; Prothrombin Time (Protime)PT. 13.6 SECONDS (11.7-14.9)
[2019-05-08 15:11] LABS: Partial Thromboplast Time 34.3 Seconds (24.1-36.2)
[2019-05-08 15:13] LABS: AST(SGOT) 50 U/L (15-37); Alanine Aminotransfer ALT/SGPT 43 U/L (13-56); Creatinine, Serum 0.72 mg/dL (0.55-1.02); EST Glomerular Filtration Rate 106 mL/min (>60); Est Glom Filt Rate - Afr Amer 129 mL/min (>60); Estimated Creatinine Clearance 100.52 ml/min; Uric Acid 8.8 mg/dL (2.6-6.0)
[2019-05-08] MEDS: oxyCODONE 5 MG Tablet 10 MG PO (15:13)
[2019-05-08 16:36] LABS: Bedside Glucose 97 mg/dL (70-110)
--- NOTE | 2019-05-08 17:34 | PCM.HPOB.BLA ---
- Problem List (1) Diabetes in Status: Acute Qualifiers: Comment: sees endocrinology. optho consult. Seeing Dr. Cortes. Growth US at 28 wk, weekly bpps and weekly nsts after 32 weeks deliver at 38 (2) Headache in Status: Acute Qualifiers: Comment: seen in triage 04/14-04/16- given BMZ x 2. proteinuria present, elevated uric acid. recommend weekly labs, home bp checking (3) History of pancreatitis Status: Acute Comment: monitor PRN (4) History of severe pre-eclampsia Status: Acute Comment: nl baseline labs (5) Hypertension affecting Status: Acute Qualifiers: Comment: labetalol 100 BID. baby asa weekly BLADIMIR after 32 (6) Pre-eclampsia affecting , antepartum Status: Acute Comment: persistent proteinuria, elevated uric acid and borderline elevated ast- recommend admitting and follow serial labs (7) Pre-eclampsia, severe Status: Acute (8) Status: Acute Qualifiers: Comment: carrier screening neg. 14 out of 14, Genetic low risk; AFP negative (9) Sterilization Status: Acute Comment: juan alberto 19 signed 03/27/19 plan PPTL (10) Supervision of high risk , antepartum Status: Acute Comment: PRR BENNIE 06/15/19 boy Hong PC [place], Dolly Alexx (11) Depression Status: Chronic Qualifiers: Comment: cassia, encourage counseling. History and Physical Date of Admission: 05/08/19 Intake Vital Signs 05/08/19 BMI 44.1 05/08/19 Height 5 ft 3 in 05/08/19 Weight: 245 lb 05/08/19 BMI 43.4 05/08/19 BP 142/100 H Intake Visit Reasons: est ob 34w NST Chief Complaint: est ob NO NST [employer] Specialist Required: No Is patient in pain?: No Allergies Gadolinium-MRI Contrast Medium [DYE] Allergy (Severe, Verified 05/08/19 14:08) Other Medications vitamin#30 30 mg iron-10 mg iron-folic acid 1 mg-omg3 capsule 1 cap PO DAILY cap 11/19/18 [History Confirmed 05/08/19] blood sugar diagnostic See Rx Instructions .ROUTE .MEDSUPPLY #100 ea 12/20/18 [Rx Confirmed 05/08/19] sertraline 100 mg tablet 100 mg PO DAILY 01/06/19 [History Confirmed 05/08/19] pen needle, diabetic 32 gauge x See Rx Instructions .ROUTE .MEDSUPPLY #100 ea 01/16/19 [Rx Confirmed 05/08/19] Ondansetron [Zofran Odt] 4 mg PO Q8H PRN PRN #10 tab 03/20/19 [Rx Confirmed 05/08/19] Labetalol HCl 100 mg PO BID 04/14/19 [History Confirmed 05/08/19] Insulin Lispro [Humalog Kwikpen] 20 unit SUBCUT QAC 04/28/19 [History Confirmed 05/08/19] Insulin NPH Human Isophane [Humulin N NPH Insulin KwikPen] 20 unit SUBCUT QPM 04/28/19 [History Confirmed 05/08/19] Famotidine 20 mg PO DAILY 05/01/19 [History Confirmed 05/08/19] Last Menstral Period: 09/07/18 Zika: Zika virus screening: Negative : No PFSH PFSH Medical History Depression (Chronic) High triglycerides (Acute) Hx of transfusion of whole blood (Acute) Hx: UTI (urinary tract infection) (Acute) Hyperlipidemia (Acute) Kidney failure (Acute) HTN (hypertension) (Chronic) Acute pancreatitis (Resolved) Migraine headache (Resolved) Type 2 diabetes mellitus (Resolved) Hyperlipidemia (Inactive) Surgical History History of carpal tunnel release of both wrists (Acute) History of cholecystectomy (Acute) History of endoscopy (Acute) Family History Mother Diabetes Grandmother Diabetes Grandfather Diabetes Father hyperlipidemia Unknown Depression Hypertension Social History (Updated 05/08/19 @ 16:[address] 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 Date Name GA/Weeks Outcome Route Bth Weight Infant Gen Labor Lgth Anesthesia Del Locatn Provider FOB 09/10/15 Myke 37 live - full term Female [facility] Adriel 07/12/17 Dolly 37 live - full term 7 pounds Female epidural [facility] [place] Delivery Date: 09/10/15 No notes to display Delivery Date: 07/12/17 On 07/24/17 @ 16:35 Gustavo,Sydni Severe preeclampsia, DM, Oligo, HTN HPI est ob 34w NST: Details: ADALID DIAZ is a 23 year old who presents for routine OB visit and has severe headache, nausea, flushing, visual changes. bps have been 140-150/100s at home and in the office today. labs show elevated AST and Uric acid. Diagnosis of preeclampsia with severe features made. OB Visit BENNIE Calculator Estimated Delivery Date Method Current WG Current Estimate 06/15/19 Ultrasound #1 34w 4d Other Estimates 06/07/19 LMP (Uncertain) 35w 5d Expected Delivery Route/Plan pptl Labor Preferences- labor support person: Alexx pain management options preferred: epidural cut cord/dad catch: : yes PP control planned: BTO discussed possible routes of delivery and associated risks: [] special requests: [] Specific Issue/Plans flu vaccine: given tdap vaccine: [] rhogam: [] LARC form signed: [] Problem list reviewed and updated with the most current plan of care details and appropriate orders placed. Relevant counseling for the gestational age provided. Continue routine care and follow up unless otherwise noted in visit notes/problem list details Initial Weight: Not Recorded Date EGA Weight BP Urine Prot Glucose FHR FuHt Pres Dilation Effaced St Visit Note 12/20/18 14w 5d 226 lb 122/86 2+ A* Negative 150 start insulin at night 4 U refer to endocrine 01/02/19 16w 4d 228 lb 130/76 Negative Negative 163 BS >50% WNL. No VB, LOF. 01/31/19 20w 5d 233 lb 128/82 Negative Negative 154 Last week BS good but last night and this AM high:states are ate poorly last pm. Has appt with Dr. Cortes next week. No VB, LOF. Good FM 02/24/19 24w 1d 242 lb 134/87 Negative Negative 135 24 no vb lof good fm no reg ctx 03/27/19 28w 4d 239 lb 130/88 Trace Negative 145 39 SM- no vb lof good fm no regular ctx 04/10/19 30w 4d 242 lb 6 oz 120/76 Trace Negative 153 31 MH-Good FM. NO VB, LOF. Irreg BH. weekly BPP and NST schedule at 32 week. Next growth US scheduled with MFM 04/21/19 MH-Good FM. NO VB, LOF. Irreg BH. weekly BPP and NST schedule at 32 week. Next growth US scheduled with MFM 04/21/19. >50% BS readings WNL. See belt glass sander tomorrow. 04/18/19 31w 5d 244 lb 122/86 Negative Negative 140 32 SM- no vb lof good fm no reg ctx BS fairly well controlled 05/06/19 34w 2d 250 lb 8 oz 152/98 Negative Negative 148 0 MH-Good FM. No VB, LOF. States headache much worse and seeing spots with lower back pain. Has not slept. To WP for Pre E labs, monitoring and will need urine culture. Denies reg CTX Notes Visit Date: 05/06/19 ??No visit notes to display Visit Date: 04/18/19 ??No visit notes to display Visit Date: 04/10/19 ??No visit notes to display Visit Date: 03/27/19 ??No visit notes to display Visit Date: 02/24/19 ??no vb lof good fm no reg ctx ??Britany Urena MD on 02/24/19 Visit Date: 01/31/19 ??Last week BS good but last night and this AM high:states are ate poorly last pm. Has appt with Dr. Cortes next week. No VB, LOF. Good FM ??MARISA Pichardo on 01/31/19 Visit Date: 01/02/19 ??BS >50% WNL. No VB, LOF. ??MARISA Pichardo on 01/02/19 Visit Date: 12/20/18 ??start insulin at night 4 U refer to endocrine ??Britany Urena MD on 12/20/18 ACOG First Trimester First Trimester: Desire for , Alcohol, Tobacco Cessation, Illicit/Recreational Drug/Substance Use, Intimate Partner Violence, Barriers to care, Unstable Housing, Communication Barriers, Environmental/Work Hazards, Anticipated Course of Care, Toxoplasmosis Precations, Use of Any medications, Sexual activity, Exercise, Dental Care, Sauna/Hot tub use, Seat Belt use, Childbirth classes/Hospital facilities, , Travel, Indications for US and Screening for Aneuploidy Second Trimester Second Trimester: Signs and Symptoms of Labor, Selecting a care provider, Reproductive Life Planning, Care Planning, Tobacco Cessation, Depression/Anxiety and Intimate Partner Violence Third Trimester Third Trimester: Pain Management Plans, Labor support person(s), Immediate Larc, Movement Monitoring and Infant Feeding Yes ; discussed Trial of Labor after Counseling or discussed Circumcision preference Diagnostics Diagnostics Diagnostics Blood Type A POSITIVE 05/08/19 Antibody Screen TNP 05/08/19 Hgb 12.1 g/dL (12.0-15.0) 05/08/19 Hct 37.4 % (37-47) 05/08/19 Details: HIV: Urine Culture: Sequential Screen: NIPT Screen: ROS Const Reports system reviewed and no additional complaints, except as docu Card Reports system reviewed and no additional complaints, except as docu Resp Reports system reviewed and no additional complaints, except as docu GI Reports system reviewed and no additional complaints, except as docu, Reports nausea Reports system reviewed and no additional complaints, except as docu Musc Reports system reviewed and no additional complaints, except as docu Exam Const General: cooperative, healthy appearing, comfortable, anxious HENMT Head: normal to inspection Nose: external nose normal Face and sinus: normal facial exam Neck Neck: normal visual inspection, full ROM, no lymphadenopathy Thyroid: thyroid normal Chest Chest palpation & inspection: normal inspection of the chest Resp Effort & Inspection: normal respiratory effort GI Inspection: normal to inspection Palpation: soft, other (gravid uterus) Other: infant vertex after ECV and appropriate size for gestational age Other: Cervical Exam: Extrem General: pedal edema Neuro 2 reflexes 0-1 beat physiologic clonus, stable from previous exams Assessment & Plan Problems 1. Pre-eclampsia affecting , antepartum O14.90 2. headache in third trimester O26.893 3. Sterilization Z30.2 4. Hypertension affecting in third trimester O16.3 5. Supervision of high risk , antepartum O09.90 6. 34 weeks gestation of Z3A.34 7. History of pancreatitis Z87.19 8. Depression, unspecified depression type F32.9 9. History of severe pre-eclampsia Z87.59 10. Insulin controlled gestational diabetes mellitus (GDM) in second trimester O24.919 11. Pre-eclampsia, severe O14.10 breech- ECV performed at bedside Patient presents IOL, plan management for , plan cytotec then pit and fb Pain management: plans epidural. GBS unknown- ampicillin for prophylaxis. Management of any complications: preeclampsia with severe features. monitor labs q 8 hrs if stable. nl platelets but elevated AST and Uric acid, proteinuria I have reviewed the [facility] and made any clinically relevant updates. Orders Orders: POC Urinalysis 2 Dip (Clinic) Today Protein+Creatinine Ratio,Urine Today O14.90 Coding Level of Care Code OB Routine Diagnoses Pre-eclampsia affecting , antepartum O14.90 headache in third trimester O26.893 ??Trimester: third trimester Sterilization Z30.2 Hypertension affecting in third trimester O16.3 ??Trimester: third trimester Supervision of high risk , antepartum O09.90 34 weeks gestation of Z3A.34 ??Weeks of gestation: 34 weeks History of pancreatitis Z87.19 Depression, unspecified depression type F32.9 History of severe pre-eclampsia Z87.59 Insulin controlled gestational diabetes mellitus (GDM) in second trimester O24.919 Pre-eclampsia, severe O14.10
[2019-05-08 17:45] LABS: Bedside Glucose 87 mg/dL (70-110)
[2019-05-08] MEDS: Lactated Ringers 1,000 ML 15 ML IV (18:40)
[2019-05-08] MEDS: Magnesium Sulfate 4gm/100mL 4 GM/100 ML IV.SOLN. IV (18:41)
[2019-05-08] MEDS: miSOPROStol 25 MCG TABLET VAGINAL (18:45)
[2019-05-08] MEDS: Magnesium Sulfate 4gm/100mL 2 GM/50 ML IV.SOLN. IV (18:59)
[2019-05-08] MEDS: Insulin Lispro 100 UNIT/ML INSULN.PEN 35 UNIT SC (19:03)
[2019-05-08] MEDS: Magnesium Sulfate 20 GM/500 ML BAG IV (19:12)
[2019-05-08 19:42] LABS: Group B Strep DNA By PCR Negative (Negative); Internal Control PASS; Probe Check PASS; Specimen Processing Control PASS
[2019-05-08 22:00] LABS: Bedside Glucose 81 mg/dL (70-110)
[2019-05-08 22:34] LABS: Hematocrit 35.7 % (37-47); Hemoglobin 11.6 g/dL (12.0-15.0); Mean Corp Hgb Conc 32.5 g/dL (32-36); Mean Corpuscular Hgb 28.7 pg (27.0-32.0); Mean Corpuscular Volume 88.4 fL (81-99); Mean Platelet Vol. 10.4 fl (6.2-12.0); Platelet Count 207 K/mm3 (150-450); RBC Distribution Width CV 16.7 % (11.6-14.6); RBC Distribution Width SD 53.3 fl (35.1-43.9); Red Blood Count 4.04 M/mm3 (4.2-5.4); White Blood Count 9.5 K/mm3 (4.4-11.0)
[2019-05-08] MEDS: miSOPROStol 25 MCG TABLET 50 MCG VAGINAL (22:41)
[2019-05-08 22:51] LABS: ALB/GLOB Ratio 0.6 RATIO (0.9-2.4); AST(SGOT) 58 U/L (15-37); Alanine Aminotransfer ALT/SGPT 43 U/L (13-56); Albumin, Serum 2.7 g/dL (3.2-5.0); Alkaline Phosphatase 86 U/L (45-117); Anion Gap 10 (5-15); BUN 10 mg/dL (7-18); BUN/Creat Ratio 14.9 RATIO (10-20); Calcium,Total 8.1 mg/dL (8.5-10.1); Chloride 107 mmol/L (98-107); Creatinine, Serum 0.67 mg/dL (0.55-1.02); EST Glomerular Filtration Rate 115 mL/min (>60); Est Glom Filt Rate - Afr Amer 139 mL/min (>60); Estimated Creatinine Clearance 108.03 ml/min; Globulin 4.5 g/dL (2.2-4.2); Glucose 88 mg/dL (74-106); Potassium 3.8 mmol/L (3.5-5.1); Protein, Total 7.2 g/dL (6.4-8.2); Sodium Level 137 mmol/L (136-145)
[2019-05-08] MEDS: oxyCODONE 5 MG Tablet PO (23:14)
[2019-05-08] MEDS: Labetalol 100 MG Tablet PO (23:14)
[2019-05-09 00:40] VITALS: BP 96/57; PULSE 88; RESP 18; O2SAT 96
[2019-05-09 01:46] VITALS: BP 99/54; PULSE 85; RESP 20; O2SAT 97
[2019-05-09 01:46] LABS: Bedside Glucose 60 mg/dL (70-110)
[2019-05-09 02:11] LABS: Bedside Glucose 73 mg/dL (70-110)
[2019-05-09 02:39] VITALS: BP 87/50; PULSE 84; RESP 18; TEMP 36.3; O2SAT 96
--- NOTE | 2019-05-09 04:17 | OP.PCM_ITS ---
Problem List (1) Diabetes in Status: Acute Qualifiers: Comment: sees endocrinology. optho consult. Seeing Dr. Cortes. Growth US at 28 wk, weekly bpps and weekly nsts after 32 weeks deliver at 38 (2) Headache in Status: Acute Qualifiers: Comment: seen in triage 04/14-04/16- given BMZ x 2. proteinuria present, elevated uric acid. recommend weekly labs, home bp checking (3) History of pancreatitis Status: Acute Comment: monitor PRN (4) History of severe pre-eclampsia Status: Acute Comment: nl baseline labs (5) Hypertension affecting Status: Acute Qualifiers: Comment: labetalol 100 BID. baby asa weekly BLADIMIR after 32 (6) Pre-eclampsia affecting , antepartum Status: Acute Comment: persistent proteinuria, elevated uric acid and borderline elevated ast- recommend admitting and follow serial labs (7) Pre-eclampsia, severe Status: Acute (8) Status: Acute Qualifiers: Comment: carrier screening neg. 14 out of 14, Genetic low risk; AFP negative (9) Sterilization Status: Acute Comment: juan alberto 19 signed 03/27/19 plan PPTL (10) Supervision of high risk , antepartum Status: Acute Comment: PRR BENNIE 06/15/19 boy Hong PC Andrejohnroseanna, Dolly Alexx (11) Depression Status: Chronic Qualifiers: Comment: cassia, encourage counseling. Report of Operation Date of Procedure: 05/08/19 Pre-Operative Diagnosis: breech Post-Operative Diagnosis: vertex Surgery/Procedure Performed:: external cephalic version Description of Procedure: After confirming infant was breech IV was placed previously and reactive NST was performed. Decision for induction of labor was made due to preeclampsia with severe features and therefore the risk benefits and alternatives of external cephalic version were discussed with the patient and she was agreeable. Consent signed. Patient was placed in the dorsal supine position and and the bu ttocks and feet were elevated out of the pelvis and with constant pressure on the buttocks and on the side of the head and back a forward roll was encouraged and after 2 attempts the procedure was successful and the head was confirmed to be vertex. A Nury presentation was seen with the head not engaged into the pelvis. heart rate tracing was reassuring. It was discussed with nursing and patient was only half centimeter dilated and high in the head not engaged in the pelvis. Different positions were encouraged and it was discussed to keep the patient on the monitor continuously and the presentation would be reevaluated later. - Complications none Multi Select Codes - Urinary/Genital Urinary/Genital CPT Codes: 82192 ECV
--- NOTE | 2019-05-09 04:21 | PN_ITS ---
Progress Note patient doing well sp cytotec x 2 FHT: 140 Moderate variability reactive no decelerations category I tracing [place]: irregular Contractions ultrasound confirmed resolution of funic presentation and cephalic confirmed. plan fb and pitocin after one more dose of cytotec magnesium turned off due to low bps. labs stable but still in abnormal range. patient dizzy and lightheaded. nl neuro exam. STROKE Vital Signs/Narrative: Vital Signs Temp Pulse Resp BP Pulse Ox 05/09/19 02:39 97.3 F L 84 18 87/50 L 96 05/09/19 01:46 85 20 H 99/54 L 97 05/09/19 00:40 88 18 96/57 L 96
[2019-05-09] MEDS: miSOPROStol 25 MCG TABLET 50 MCG VAGINAL (04:56)
[2019-05-09] MEDS: oxyCODONE 5 MG Tablet PO (05:05)
[2019-05-09 06:05] LABS: Bedside Glucose 85 mg/dL (70-110)
[2019-05-09 06:40] LABS: Absolute Lymphocyte Count 1.85 X10^3/uL (0.83-4.51); Absolute Neutrophil Count 7.4 X10^3/uL (2.0-7.7); Basophil# 0.04 X10^3/uL; Basophil% 0.4 % (0-1); Eosinophil# 0.04 X10^3/uL; Eosinophils% 0.4 % (0-5); Hematocrit 35.7 % (37-47); Hemoglobin 11.4 g/dL (12.0-15.0); Lymphocyte # 1.85 X10^3/ul (4.0); Lymphocyte % 18.5 % (19-41); Mean Corp Hgb Conc 31.9 g/dL (32-36); Mean Corpuscular Hgb 28.5 pg (27.0-32.0); Mean Corpuscular Volume 89.3 fL (81-99); Mean Platelet Vol. 10.3 fl (6.2-12.0); Monocyte# 0.54 X10^3/uL; Monocyte% 5.4 % (0-10); NRBC Flagged by Analyzer 0 % (0-5); Neutrophil # 7.37 X10^3/uL (2.7-7.7); Neutrophil % 73.9 % (47-70); Platelet Count 212 K/mm3 (150-450); RBC Distribution Width CV 16.8 % (11.6-14.6); RBC Distribution Width SD 54.7 fl (35.1-43.9)
[2019-05-09 07:07] LABS: ALB/GLOB Ratio 0.6 RATIO (0.9-2.4); AST(SGOT) 71 U/L (15-37); Alanine Aminotransfer ALT/SGPT 44 U/L (13-56); Albumin, Serum 2.8 g/dL (3.2-5.0); Alkaline Phosphatase 89 U/L (45-117); Anion Gap 9 (5-15); BUN 10 mg/dL (7-18); BUN/Creat Ratio 14.2 RATIO (10-20); Calcium,Total 7.8 mg/dL (8.5-10.1); Chloride 104 mmol/L (98-107); Creatinine, Serum 0.71 mg/dL (0.55-1.02); EST Glomerular Filtration Rate 108 mL/min (>60); Est Glom Filt Rate - Afr Amer 131 mL/min (>60); Estimated Creatinine Clearance 101.94 ml/min; Globulin 4.4 g/dL (2.2-4.2); Glucose 92 mg/dL (74-106); Potassium 3.8 mmol/L (3.5-5.1); Protein, Total 7.2 g/dL (6.4-8.2); Sodium Level 135 mmol/L (136-145)
[2019-05-09] MEDS: Ondansetron 4 MG/2 ML Vial IV (07:16)
[2019-05-09] MEDS: Lactated Ringers 500 ML 999 ML IV ×2 (08:28→10:44)
[2019-05-09] MEDS: fentaNYL-bupivacaine (epidural) 100 ML BAG EPIDURAL ×2 (09:00→13:22)
[2019-05-09 09:51] LABS: Bedside Glucose 93 mg/dL (70-110)
[2019-05-09] MEDS: Oxytocin 30 units/NS 500 ml 30 UNITS/500 ML IV.SOLN IV (10:02)
[2019-05-09] MEDS: 0.9% Normal Saline Single 100 ML IV.SOLN. IY (11:41)
[2019-05-09] MEDS: Lactated Ringers 1,000 ML 200 ML IV (13:51)
[2019-05-09 14:11] LABS: Bedside Glucose 88 mg/dL (70-110)
[2019-05-09 14:54] LABS: Hematocrit 34.8 % (37-47); Hemoglobin 11.1 g/dL (12.0-15.0); Mean Corp Hgb Conc 31.9 g/dL (32-36); Mean Corpuscular Hgb 28.8 pg (27.0-32.0); Mean Corpuscular Volume 90.2 fL (81-99); Mean Platelet Vol. 10.3 fl (6.2-12.0); Platelet Count 194 K/mm3 (150-450); RBC Distribution Width CV 16.9 % (11.6-14.6); RBC Distribution Width SD 54.2 fl (35.1-43.9); Red Blood Count 3.86 M/mm3 (4.2-5.4); White Blood Count 7.7 K/mm3 (4.4-11.0)
[2019-05-09 15:11] LABS: Bedside Glucose 81 mg/dL (70-110)
[2019-05-09 15:21] LABS: Protein:Creat Ratio 269 mg/g CRE (0-200)
[2019-05-09 16:27] LABS: AST(SGOT) 72 U/L (15-37); Alanine Aminotransfer ALT/SGPT 45 U/L (13-56); Creatinine, Serum 0.71 mg/dL (0.55-1.02); EST Glomerular Filtration Rate 108 mL/min (>60); Est Glom Filt Rate - Afr Amer 131 mL/min (>60); Estimated Creatinine Clearance 101.94 ml/min; Uric Acid 9.5 mg/dL (2.6-6.0)
[2019-05-09 16:56] LABS: Bedside Glucose 70 mg/dL (70-110)
[2019-05-09] MEDS: Acetaminophen 325 MG Tablet PO (17:13)
[2019-05-09 17:51] LABS: Bedside Glucose 91 mg/dL (70-110)
--- NOTE | 2019-05-09 18:03 | PCM.OPRPT ---
Problem List (1) Diabetes in Status: Acute Qualifiers: Comment: sees endocrinology. optho consult. Seeing Dr. Cortes. Growth US at 28 wk, weekly bpps and weekly nsts after 32 weeks deliver at 38 (2) Headache in Status: Acute Qualifiers: Comment: seen in triage 04/14-04/16- given BMZ x 2. proteinuria present, elevated uric acid. recommend weekly labs, home bp checking (3) History of pancreatitis Status: Acute Comment: monitor PRN (4) History of severe pre-eclampsia Status: Acute Comment: nl baseline labs (5) Hypertension affecting Status: Acute Qualifiers: Comment: labetalol 100 BID. baby asa weekly BLADIMIR after 32 (6) Pre-eclampsia affecting , antepartum Status: Acute Comment: persistent proteinuria, elevated uric acid and borderline elevated ast- recommend admitting and follow serial labs (7) Pre-eclampsia, severe Status: Acute (8) Status: Acute Qualifiers: Comment: carrier screening neg. 14 out of 14, Genetic low risk; AFP negative (9) Sterilization Status: Acute Comment: juan alberto 19 signed 03/27/19 plan PPTL (10) Supervision of high risk , antepartum Status: Acute Comment: PRR BENNIE 06/15/19 boy Hong PC Heri, Dolly Alexx (11) Depression Status: Chronic Qualifiers: Comment: riccooft, encourage counseling. Vaginal Delivery Maternal Presentation: Medically Indicated Induction iol 34w4d for preeclampsia with severe features- neurologic symptoms, elevated bps, elevated uric acid, elevated AST Method of Induction: Pitocin, Infnate Bulb, Cytotec Medical Reason for Induction: Preeclampsia, eclampsia Amniotic Membrane Rupture Type: Artificial Amniotic Fluid Description: Clear Final BENNIE: 06/15/19 Gestational age: 34 Weeks and 5 Days Date of Procedure: 05/09/19 Pre-Operative Diagnosis: iol severe preeclampsia Post-Operative Diagnosis: same Surgery/ Procedure Performed: Spontaneous Vaginal Delivery Type of Anesthesia: Epidural Description of Procedure: Patient began pushing and delivered the head in the AVA presentation. The head was delivered atraumatically. The anterior and posterior shoulders delivered without complication followed by the rest of the and the was placed on the maternal abdomen. Delayed cord clamping was employed for approximately 60 seconds. Cord was clamped and cut and gentle traction was applied to the cord and the placenta delivered spontaneously immediately following it was noted to be intact with three-vessel cord. The perineum and vagina were inspected and noted to have no laceration. EBL was 300 cc. Patient and tolerated delivery well. Patient's blood pressures will be monitored and magnesium and antihypertensives restarted if they begin to increase. Have been held due to low blood pressures during labor. Presentation: AVA Placental Delivery Description: Spontaneous Placenta Disposition: [facility] Cord Vessel Description: 3 Vessels Cord Gases drawn per routine: ABG, VBG Cord Entanglement: None Estimated Blood Loss: 300 A gender: Male Episiotomy Description: None Laceration: None Medications given after delivery: IV Pitocin Complications: None Multi Select Codes - Urinary/Genital Urinary/Genital CPT Codes: 35904 Vaginal Delivery+ Care([facility])
[2019-05-09] MEDS: Oxytocin 30 units/NS 500 ml 30 UNITS/500 ML IV.SOLN 334 UNITS IV (18:10)
[2019-05-09] MEDS: 0.9% Saline Lock 10 ML Syringe IV (19:45)
[2019-05-09 19:51] LABS: Bedside Glucose 91 mg/dL (70-110)
[2019-05-10 00:15] VITALS: BP 113/68; PULSE 80; RESP 18; TEMP 36.4
[2019-05-10] MEDS: Naproxen 250 MG Tablet 500 MG PO ×3 (00:27→23:03)
[2019-05-10] MEDS: oxyCODONE 5 MG Tablet PO (02:43)
[2019-05-10 06:31] LABS: Bedside Glucose 107 mg/dL (70-110)
[2019-05-10 06:35] VITALS: BP 114/70; BP 98/56; PULSE 71; RESP 18; TEMP 36.5
[2019-05-10 06:41] LABS: Absolute Lymphocyte Count 1.47 X10^3/uL (0.83-4.51); Absolute Neutrophil Count 5.8 X10^3/uL (2.0-7.7); Basophil# 0.02 X10^3/uL; Basophil% 0.3 % (0-1); Eosinophil# 0.05 X10^3/uL; Eosinophils% 0.6 % (0-5); Hematocrit 30.9 % (37-47); Hemoglobin 9.7 g/dL (12.0-15.0); Lymphocyte # 1.47 X10^3/ul (4.0); Lymphocyte % 18.8 % (19-41); Mean Corp Hgb Conc 31.4 g/dL (32-36); Mean Platelet Vol. 10.6 fl (6.2-12.0); Monocyte# 0.47 X10^3/uL; NRBC Flagged by Analyzer 0 % (0-5); Neutrophil # 5.78 X10^3/uL (2.7-7.7); Neutrophil % 73.7 % (47-70); Platelet Count 193 K/mm3 (150-450); RBC Distribution Width CV 16.8 % (11.6-14.6); RBC Distribution Width SD 54.5 fl (35.1-43.9); Red Blood Count 3.47 M/mm3 (4.2-5.4); White Blood Count 7.8 K/mm3 (4.4-11.0)
[2019-05-10 07:08] LABS: ALB/GLOB Ratio 0.6 RATIO (0.9-2.4); AST(SGOT) 53 U/L (15-37); Alanine Aminotransfer ALT/SGPT 38 U/L (13-56); Albumin, Serum 2.3 g/dL (3.2-5.0); Alkaline Phosphatase 75 U/L (45-117); Anion Gap 8 (5-15); BUN 6 mg/dL (7-18); BUN/Creat Ratio 10.1 RATIO (10-20); Calcium,Total 7.9 mg/dL (8.5-10.1); Chloride 109 mmol/L (98-107); EST Glomerular Filtration Rate 132 mL/min (>60); Est Glom Filt Rate - Afr Amer 159 mL/min (>60); Estimated Creatinine Clearance 120.63 ml/min; Globulin 3.7 g/dL (2.2-4.2); Glucose 115 mg/dL (74-106); Sodium Level 139 mmol/L (136-145)
--- NOTE | 2019-05-10 07:35 | PN.OBGYN_ITS ---
Subjective: doing well no complaints pain controlled no CP SOB N V ambulating well tolerating po lochia moderate - Physical Exam Vitals/I&O's: Vital Signs Temp Pulse Resp BP Pulse Ox 97.7 F L 71 18 98/56 L 96 05/10/19 06:35 05/10/19 06:35 05/10/19 06:35 05/10/19 06:35 05/09/19 02:39 Oxygen Delivery Method Room Air Weight: 244 lb 0.827 oz Body Mass Index (BMI) 43.2 Finger Stick Blood Glucose 248 Intake and Output for Last 24 Hours 05/08/19 05/09/19 05/10/19 23:59 23:59 23:59 Intake Total 780.26 / 780.26 2954.63 / 2954.63 Output Total 375 / 375 1575 / 1575 300 / 300 Balance 405.26 / 405.26 1379.63 / 1379.63 -300 / -300 General: Alert, Oriented x3 Laboratory Results 05/09/19 09:43: POC Glucose 93 05/09/19 14:05: POC Glucose 88 05/09/19 14:45: WBC 7.7, RBC 3.86 L, Hgb 11.1 L, Hct 34.8 L, MCV 90.2, MCH 28.8, MCHC 31.9 L, RDW Std Deviation 54.2 H, RDW Coeff of Varun 16.9 H, Plt Count 194, MPV 10.3 05/09/19 14:45: PT Cancelled, INR Cancelled, APTT Cancelled 05/09/19 14:45: Creatinine 0.71, Estim Creat Clear Calc 101.94, Est GFR (MDRD) Af Amer 131, Est GFR (MDRD) Non-Af 108, Uric Acid 9.5 H, AST 72 H, ALT 45 05/09/19 14:45: U Random Total Protein 25.0 H, Urine Creatinine 92.80, Protein/Creatinin Ratio 269 H 05/09/19 15:06: POC Glucose 81 05/09/19 16:51: POC Glucose 70 05/09/19 17:47: POC Glucose 91 05/09/19 19:46: POC Glucose 91 05/10/19 06:19: POC Glucose 107 05/10/19 06:20: WBC 7.8, RBC 3.47 L, Hgb 9.7 L, Hct 30.9 L, MCV 89.0, MCH 28.0, MCHC 31.4 L, RDW Std Deviation 54.5 H, RDW Coeff of Varun 16.8 H, Plt Count 193, MPV 10.6, Immature Gran % (Auto) 0.600, Neut % (Auto) 73.7 H, Lymph % (Auto) 18.8 L, [place] % (Auto) 6.0, Eos % (Auto) 0.6, Baso % (Auto) 0.3, Absolute Neuts (auto) 5.8, Absolute Lymphs (auto) 1.47, Nucleated RBC % 0 05/10/19 06:20: Sodium 139, Potassium 4.0, Chloride 109 H, Carbon Dioxide 22.0, Anion Gap 8, BUN 6 L, Creatinine 0.60, Estim Creat Clear Calc 120.63, Est GFR (MDRD) Af Amer 159, Est GFR (MDRD) Non-Af 132, BUN/Creatinine Ratio 10.1, Glucose 115 H, Calcium 7.9 L, Total Bilirubin 0.50, AST 53 H, ALT 38, Alkaline Phosphatase 75, Total Protein 6.0 L, Albumin 2.3 L, Globulin 3.7, Albumin/Globulin Ratio 0.6 L Current Medications Acetaminophen (Tylenol) 1,000 mg PO Q8H PRN PRN PRN Reason: Pain Score 1-3/10 Bisacodyl (Dulcolax) 10 mg RECTAL UD PRN PRN Reason: If no BM Dibucaine (Dibucaine) 1 applic TOPICAL TID PRN PRN; Protocol PRN Reason: Discomfort Famotidine (Pepcid) 20 mg PO DAILY BORIS Glucagon () 1 mg IM .X1 PRN PRN Reason: Hypoglycemia Hydrocortisone (Hytone) 1 applic TOPICAL TID PRN PRN; Protocol PRN Reason: Discomfort Dextrose (Dextrose 10%-Water) 250 mls @ 999 mls/hr IV X1 PRN; Protocol PRN Reason: HYPOGLYCEMIA Naproxen (Naprosyn) 500 mg PO Q8H PRN PRN PRN Reason: Pain Score 1-3/10 Last Admin: 05/10/19 00:27 Dose: 500 mg Documented by: Ondansetron HCl (Zofran) 4 mg IV Q4H PRN PRN PRN Reason: Nausea Oxycodone HCl (Oxyir) 5 - 10 mg PO Q4H PRN PRN PRN Reason: Pain Score 4-10/10 Last Admin: 05/10/19 02:43 Dose: 10 mg Documented by: Multivit/Folic Acid/Iron (Prenatabs Fa) 1 tablet PO DAILY@1200 BORIS Senna/Docusate Sodium (Senokot-S, Dunia-Colace) 1 - 2 tablet PO DAILY PRN PRN PRN Reason: Constipation Sertraline HCl (Zoloft) 100 mg PO DAILY BORIS Simethicone (Mylicon) 80 mg PO PCHS PRN PRN Reason: Indigestion/Stomach pain Sodium Chloride () 5 - 15 ml IV UD PRN PRN Reason: SALINE FLUSH Last Admin: 05/09/19 19:45 Dose: 10 ml Documented by: Medical Necessity - Tobacco Use Smoking Status: Never smoker Assessment/Plan All Active Problems (Last Reviewed 05/08/19 @ 14:09 by Sharmaine Luna) Pre-eclampsia, severe (Acute) Pre-eclampsia affecting , antepartum (Acute) Headache in (Acute) Sterilization (Acute) Hypertension affecting (Acute) Supervision of high risk , antepartum (Acute) (Acute) History of pancreatitis (Acute) History of severe pre-eclampsia (Acute) Diabetes in (Acute) KIM (acute kidney injury) (Resolved) Abdominal pain (Resolved) Acute pancreatitis (Resolved) Cholelithiasis (Resolved) Cholelithiasis and cholecystitis with obstruction (Resolved) History of pre-eclampsia (Resolved) Hypertension affecting in second trimester (Resolved) Migraine headache (Resolved) RUQ abdominal pain (Resolved) Recurrent acute pancreatitis (Resolved) Severe preeclampsia (Resolved) Supervision of high risk in second trimester (Resolved) Type 2 diabetes mellitus (Resolved) s/p PPD # 1. routine post delivery care 2. GDMA2- not a true FBS but it was 100, per endocrine recommend not checking sugars and will fu as OP 3. rh positive 4. rubella immune
[2019-05-10 10:00] VITALS: BP 126/59; PULSE 82; RESP 16; TEMP 36.6
[2019-05-10] MEDS: Sertraline 100 MG Tablet PO (10:47)
[2019-05-10] MEDS: Famotidine 20 MG Tablet PO (10:47)
[2019-05-10] MEDS: Senna/Docusate Sodium 1 Tablet PO (10:51)
[2019-05-10 16:00] VITALS: BP 128/77; PULSE 72; RESP 12; TEMP 36.2
[2019-05-10 20:00] VITALS: BP 138/86; PULSE 86; RESP 18; TEMP 36.5
[2019-05-11 03:00] VITALS: BP 119/70; PULSE 69; RESP 18; TEMP 36.6
[2019-05-11] MEDS: oxyCODONE 5 MG Tablet PO (04:37)
[2019-05-11 08:31] VITALS: BP 143/91; PULSE 85; RESP 18; TEMP 36.2
[2019-05-11] MEDS: Naproxen 250 MG Tablet 500 MG PO (08:39)
--- NOTE | 2019-05-11 08:42 | PN.OBGYN_ITS ---
Subjective: doing well no complaints pain controlled no CP SOB N V ambulating well tolerating po lochia moderate, going well - Physical Exam Vitals/I&O's: Vital Signs Temp Pulse Resp BP Pulse Ox 97.2 F L 85 18 143/91 H 96 05/11/19 08:31 05/11/19 08:31 05/11/19 08:31 05/11/19 08:31 05/09/19 02:39 Oxygen Delivery Method Room Air Weight: 244 lb 0.827 oz Body Mass Index (BMI) 43.2 Finger Stick Blood Glucose 248 Intake and Output for Last 24 Hours 05/09/19 05/10/19 05/11/19 23:59 23:59 23:59 Intake Total 2954.63 / 2954.63 Output Total 1575 / 1575 700 / 700 Balance 1379.63 / 1379.63 -700 / -700 General: Alert, Oriented x3 Microbiology Past 72 Hours 05/08/19 Unknown Genital vaginal Group B Streptococcus Culture - Preliminary Group B Beta Streptococcus is not isolated. Current Medications Acetaminophen (Tylenol) 1,000 mg PO Q8H PRN PRN PRN Reason: Pain Score 1-3/10 Bisacodyl (Dulcolax) 10 mg RECTAL UD PRN PRN Reason: If no BM Dibucaine (Dibucaine) 1 applic TOPICAL TID PRN PRN; Protocol PRN Reason: Discomfort Famotidine (Pepcid) 20 mg PO DAILY BORIS Last Admin: 05/10/19 10:47 Dose: 20 mg Documented by: Glucagon () 1 mg IM .X1 PRN PRN Reason: Hypoglycemia Hydrocortisone (Hytone) 1 applic TOPICAL TID PRN PRN; Protocol PRN Reason: Discomfort Dextrose (Dextrose 10%-Water) 250 mls @ 999 mls/hr IV X1 PRN; Protocol PRN Reason: HYPOGLYCEMIA Naproxen (Naprosyn) 500 mg PO Q8H PRN PRN PRN Reason: Pain Score 1-3/10 Last Admin: 05/11/19 08:39 Dose: 500 mg Documented by: Ondansetron HCl (Zofran) 4 mg IV Q4H PRN PRN PRN Reason: Nausea Oxycodone HCl (Oxyir) 5 - 10 mg PO Q4H PRN PRN PRN Reason: Pain Score 4-10/10 Last Admin: 05/11/19 04:37 Dose: 5 mg Documented by: Multivit/Folic Acid/Iron (Prenatabs Fa) 1 tablet PO DAILY@1200 [facility] Last Admin: 05/10/19 18:50 Dose: Not Given Documented by: Senna/Docusate Sodium (Senokot-S, Dunia-Colace) 1 - 2 tablet PO DAILY PRN PRN PRN Reason: Constipation Last Admin: 05/10/19 10:51 Dose: 2 tablet Documented by: Sertraline HCl (Zoloft) 100 mg PO DAILY [facility] Last Admin: 05/10/19 10:47 Dose: 100 mg Documented by: Simethicone (Mylicon) [address] [facility] PRN PRN Reason: Indigestion/Stomach pain Sodium Chloride () 5 - 15 ml IV UD PRN PRN Reason: SALINE FLUSH Last Admin: 05/09/19 19:45 Dose: 10 ml Documented by: Medical Necessity - Tobacco Use Smoking Status: Never smoker Assessment/Plan All Active Problems (Last Reviewed 05/08/19 @ 14:09 by Sharmaine Luna) Pre-eclampsia, severe (Acute) Pre-eclampsia affecting , antepartum (Acute) Headache in (Acute) Sterilization (Acute) Hypertension affecting (Acute) Supervision of high risk , antepartum (Acute) (Acute) History of pancreatitis (Acute) History of severe pre-eclampsia (Acute) Diabetes in (Acute) KIM (acute kidney injury) (Resolved) Abdominal pain (Resolved) Acute pancreatitis (Resolved) Cholelithiasis (Resolved) Cholelithiasis and cholecystitis with obstruction (Resolved) History of pre-eclampsia (Resolved) Hypertension affecting in second trimester (Resolved) Migraine headache (Resolved) RUQ abdominal pain (Resolved) Recurrent acute pancreatitis (Resolved) Severe preeclampsia (Resolved) Supervision of high risk in second trimester (Resolved) Type 2 diabetes mellitus (Resolved) s/p PPD # 2 1. routine post delivery care 2. GDMA2- not a true FBS but it was 100, per endocrine recommend not checking sugars and will fu as OP 3. rh positive 4. rubella immune
--- NOTE | 2019-05-11 08:43 | DCINST_ITS ---
Discharge Diet: No Restrictions Discharge Activity: Return to Normal Activity, May not drive while taking narcotic pain medications., May Shower May resume sexual activity in: 4-6 weeks Call your doctor if your incision/area has: Continuous Slow Oozing, Sudden Increased Bleeding, Increased Pain/ Swelling, Increased Redness, Foul Smelling Discharge Additional Instructions: If you experience any of the following, contact your healthcare provider. * Bleeding that soaks a pad every hour for 2 hours * Fever 100.4 or higher * Unrelieved incision or abdominal pain * Swelling, redness, discharge or bleeding from your incision or episiotomy site * Your incision begins to separate * Problems urinating (including inability to urinate or burning while urinating). * Visual changes * Severe headache * Flu-like symptoms * Pain or redness in one of both of your breasts * Pain, warmth, tenderness or swelling in your legs, especially the calf area * Frequent nausea and vomiting * Symptoms of depression or anxiety If you experience any of the following, call 911 or go to the nearest Emergency Room. * Chest pain * Problems breathing * Seizure activity * Partial or complete paralysis of a body part, slurred speech, weakness or drooping of the face, or a sudden inability to walk or hold your balance Allergies/Adverse Reactions: Allergies Gadolinium-MRI Contrast Medium [DYE] Allergy (Severe, Verified 05/08/19 14:08) Other kidney failure Medications to take at Discharge vitamin#30 30 mg iron-10 mg iron-folic acid 1 mg-omg3 capsule 1 cap PO DAILY cap 11/19/18 blood sugar diagnostic See Rx Instructions .ROUTE .MEDSUPPLY #100 ea 12/20/18 sertraline 100 mg tablet 100 mg PO DAILY 01/06/19 pen needle, diabetic 32 gauge x See Rx Instructions .ROUTE .MEDSUPPLY #100 ea 01/16/19 Ondansetron [Zofran Odt] 4 mg PO Q8H PRN PRN #10 tab 03/20/19 Labetalol HCl 100 mg PO BID 04/14/19 Insulin Lispro [Humalog Kwikpen] 20 unit SUBCUT QAC 04/28/19 Insulin NPH Human Isophane [Humulin N NPH Insulin KwikPen] 20 unit SUBCUT QPM 04/28/19 Famotidine 20 mg PO DAILY 05/01/19 Naproxen [Naprosyn] 250 - 500 mg PO Q8H PRN PRN #30 tab 05/11/19 Oxycodone HCl/Acetaminophen [Percocet 5-325] 1 - 2 tablet PO Q6H PRN PRN 7 Days #15 tablet 05/11/19 The following prescriptions were given: Naproxen [Naprosyn] 250 - 500 mg PO Q8H PRN PRN #30 tab PRN Reason: MILD PAIN Transmission Status: Pending to [facility] Oxycodone HCl/Acetaminophen [Percocet 5-325] 1 - 2 tablet PO Q6H PRN PRN 7 Days #15 tablet PRN Reason: Pain Transmission Status: Sent to [facility] Please Follow Up With: Britany Urena MD - [phone] When: Call to make an appointment with your doctor in 6 weeks. If you had elevated Blood pressure or 4th degree laceration you will need to be seen in 2 weeks. Primary Care Physician: Bryant Cardona MD [Primary Care Provider] - Test Results: Test results from this visit will be discussed in further detail at your follow- up appointment, if applicable.
== END 2019-05-11 12:45 | disposition home or self-care (01) | DRG 560 ==
LOC: WPOUT 15:51 → WP 15:51
PROVIDERS: Admitting Provider Obstetrics & Gynecology; PCP Family Medicine; Referring Provider Obstetrics & Gynecology; Visit Provider Obstetrics & Gynecology
DX: O24.12 Pre-existing type 2 diabetes mellitus, in childbirth (principal); O99.344 Other mental disorders complicating childbirth; O14.14 Severe pre-eclampsia complicating childbirth; O32.1XX0 Maternal care for breech presentation, not applicable or unspecified; E11.9 Type 2 diabetes mellitus without complications; F41.8 Other specified anxiety disorders; Z3A.34 34 weeks gestation of pregnancy; Z37.0 Single live birth; Z79.4 Long term (current) use of insulin
CPT/HCPCS: 36415; 59025; 59050; 59412; 76815; 76819; 80053; 81001; 82565; 82570; 82962; 84156; 84450; 84460; 84550; 85025; 85027; 85610; 85730; 86850; 86900; 86901; 87081; 87086; 87088; 87653; 96372; 99218; J7120; A4216; G0378; J0290; J2405

== ENCOUNTER 2019-05-15 09:48 | Outpatient (CLI) | payer MEDICAID, SELFPAY ==
[2019-05-08 14:43] VITALS: BMI 43.2
[2019-05-15 10:15] VITALS: BP 155/83; PULSE 72; RESP 20; TEMP 36.6
[2019-05-15 10:23] VITALS: BMI 42.7
[2019-05-15 10:30] VITALS: BP 138/84; PULSE 68; RESP 20
[2019-05-15 10:40] LABS: Hematocrit 36.6 % (37-47); Hemoglobin 11.5 g/dL (12.0-15.0); Mean Corp Hgb Conc 31.4 g/dL (32-36); Mean Corpuscular Hgb 28.2 pg (27.0-32.0); Mean Corpuscular Volume 89.7 fL (81-99); Mean Platelet Vol. 10.4 fl (6.2-12.0); Platelet Count 212 K/mm3 (150-450); RBC Distribution Width CV 15.4 % (11.6-14.6); RBC Distribution Width SD 50.4 fl (35.1-43.9); Red Blood Count 4.08 M/mm3 (4.2-5.4); White Blood Count 6.7 K/mm3 (4.4-11.0)
[2019-05-15 10:47] LABS: Prothrombin Time (Protime)PT. 13.3 SECONDS (11.7-14.9)
[2019-05-15 10:48] LABS: Partial Thromboplast Time 32.8 Seconds (24.1-36.2)
[2019-05-15 10:49] LABS: AST(SGOT) 57 U/L (15-37); Alanine Aminotransfer ALT/SGPT 51 U/L (13-56); Creatinine, Serum 0.76 mg/dL (0.55-1.02); EST Glomerular Filtration Rate 100 mL/min (>60); Est Glom Filt Rate - Afr Amer 121 mL/min (>60); Estimated Creatinine Clearance 95.23 ml/min; Uric Acid 8.8 mg/dL (2.6-6.0)
[2019-05-15 10:50] VITALS: BP 143/82; PULSE 67; RESP 20
[2019-05-15 11:10] VITALS: BP 143/84; PULSE 74; RESP 20
[2019-05-15] MEDS: Acetaminophen/Butalbital/Caffe 1 Tablet 2 TABLET PO (11:14)
--- NOTE | 2019-05-15 13:01 | PCM.HP.OB ---
- Problem List (1) Hypertension Status: Chronic History Date of Admission: 05/08/19 Final BENNIE Source: US >20 weeks History of this : This is a 23 year-old, 1 week follows up for blood pressures being elevated at home and persistent ESPARZA worsening. repeat pressure here are normalizing, headache feels mildly worse than what she has had, she states she has been sleeping fairly well. she has some blurry vision but no visual deficits. Medical History: Medical History (Last Reviewed 05/08/19 @ 14:09 by Sharmaine Luna) Depression (Chronic) F32.9 zoloft, encourage counseling. High triglycerides E78.1 Hx of transfusion of whole blood Z92.89 Hx: UTI (urinary tract infection) Z87.440 Hyperlipidemia E78.5 Kidney failure N19 HTN (hypertension) I10 Acute pancreatitis (Resolved) K85.90 Migraine headache (Resolved) G43.909 Type 2 diabetes mellitus (Resolved) E11.9 Hyperlipidemia (Inactive) E78.5 Surgical History: Surgical History (Last Reviewed 05/08/19 @ 14:09 by Sharmaine Luna) History of carpal tunnel release of both wrists Z98.890 History of cholecystectomy Z90.49 History of endoscopy Z98.890 Allergies Gadolinium-MRI Contrast Medium [DYE] Allergy (Severe, Verified 05/08/19 14:08) Other kidney failure Home Medications: Home Medications vitamin#30 30 mg iron-10 mg iron-folic acid 1 mg-omg3 capsule 1 cap PO DAILY cap 11/19/18 sertraline 100 mg tablet 100 mg PO DAILY 01/06/19 Nifedipine [Procardia Xl] 30 mg PO DAILY #30 tab.er.24 05/15/19 Smoking Status: Never smoker History Past Pregnancies: Past Pregnancies Delivery Date Name GA/ Weeks Outcome Route Wt Infant Sex Labor Length Anesthesia Delivery Location Provider FOB Review of Systems Constitutional: Denies: Fever Eyes: Reports: Blurred vision HEENT: Reports: Head Aches Cardiovascular: Denies: Chest Pain Respiratory: Denies: Cough Gastrointestinal: Denies: Abdominal Pain, Nausea, Vomiting Physical Exam General: Alert, Oriented x3 HEENT: Atraumatic, EOMI, Normocephalic Cardiovascular: Regular rate Lungs: Normal air movement Abdomen: Soft, Non Tender Extremities:: No edema Neurological: Deep Tendon Reflexes 2+/4 and Symmetrical, Neuro grossly intact. Negative for: Clonus Assessment/Plan All Active Problems (Last Reviewed 05/08/19 @ 14:09 by Sharmaine Luna) Pre-eclampsia, severe (Acute) Pre-eclampsia affecting , antepartum (Acute) Headache in (Acute) Sterilization (Acute) Hypertension affecting (Acute) Supervision of high risk , antepartum (Acute) (Acute) History of pancreatitis (Acute) History of severe pre-eclampsia (Acute) Diabetes in (Acute) KIM (acute kidney injury) (Resolved) Abdominal pain (Resolved) Acute pancreatitis (Resolved) Cholelithiasis (Resolved) Cholelithiasis and cholecystitis with obstruction (Resolved) History of pre-eclampsia (Resolved) Hypertension affecting in second trimester (Resolved) Migraine headache (Resolved) RUQ abdominal pain (Resolved) Recurrent acute pancreatitis (Resolved) Severe preeclampsia (Resolved) Supervision of high risk in second trimester (Resolved) Type 2 diabetes mellitus (Resolved) This is a 23 year-old, 1 week , has had intermittent headaches for the last efw weeks prior to delivery. labs improving since delivery, repeat bps normal to mildly elevated, fioricet given for headache. recommend starting back on bp meds- ordered procardia. plan fu with pcp for headaches. reviewed precautions, if persistent symptoms or worsening recommend imaging. Multi Select Codes - Visit Charges Office Visit/Consults: 25642 OV L3 Est
--- NOTE | 2019-05-15 14:22 | NURSING ---
1000am pt received from ER with c/o of migraine and high blood pressure. pt placed in room 12. orders obtained from DR Urena.
--- NOTE | 2019-05-15 14:28 | NURSING ---
pt 6day pp, denies edema, no clonus present,reflexes 2+.
--- NOTE | 2019-05-15 14:37 | NURSING ---
1020 pre e labs drawn and sent., pt states headache . with spots and blurred vision.
--- NOTE | 2019-05-15 14:38 | NURSING ---
[address] Urena's office about bp's and labs. to call back with orders.
--- NOTE | 2019-05-15 14:39 | NURSING ---
1110 nurse from office called with update that Dr would be down around noon to see pt. Order for pain med. Fioricet 2 po given for headache.at 1115.
--- NOTE | 2019-05-15 14:40 | NURSING ---
1230 Dr Urena in room to evaluate pt, order for discharge home. pt stating med didnt help much.
--- NOTE | 2019-05-15 14:42 | NURSING ---
1240 Pt discharged to home with pre e pamphlet and discharge instructions to contact primary care dr if any other medical problems and pickle maker prescription for procardia. pt states understanding.
== END 2019-05-15 12:40 | disposition home or self-care (01) ==
LOC: WPOUT 10:01 → WP 10:02
PROVIDERS: PCP Family Medicine; Referring Provider Obstetrics & Gynecology; Visit Provider Obstetrics & Gynecology
DX: O90.89 Other complications of the puerperium, not elsewhere classified (principal); R51 Headache
CPT/HCPCS: 36415; 82565; 84450; 84460; 84550; 85027; 85610; 85730; 99218; G0378

== ENCOUNTER 2019-05-23 16:15 | Emergency (ER) | payer MEDICAID, SELFPAY ==
[2019-05-23 16:16] VITALS: BP 137/93; PULSE 101; RESP 20; TEMP 37; O2SAT 96; BMI 40.7
--- NOTE | 2019-05-23 16:30 | EKG12_ITS ---
Test Reason : SOB Blood Pressure : / mmHG Vent. Rate : 067 BPM Atrial Rate : 067 BPM P-R Int : 140 ms QRS Dur : 090 ms QT Int : 404 ms P-R-T Axes : 044 046 048 degrees QTc Int : 426 ms Normal sinus rhythm ST elevation, consider early repolarization Borderline ECG Confirmed by PERRY ARCINIEGA, ELISA ([id number]), photograph editor ASAEL BOUDREAUX ([id number]) on 05/26/2019 3:29:46 PM Referred By: BETTINA Confirmed By:ELISA AMADOR MD
--- NOTE | 2019-05-23 16:33 | ED.DCSUM_ITS ---
- ER Visit Summary Date of Service: 05/23/19 Chief Complaint: [Shortness of breath] History of Present Illness: The patient is a 23 F [presents the emergency department complaint shortness of breath that started 4 5 days ago. Patient states that she has had a cough since early April. Patient just delivered a baby 2 weeks ago. Patient complains of wheezing and some tightness in her chest at times. She was seen at urgent care 4 days ago and had a chest x-ray that was normal. Today she called primary care physician's office and was advised to come to the ER to be evaluated for PE. She is never had a PE or DVT. Patient does have history of preeclampsia and is a diabetic. Patient states that she has had prior renal failure related to IV contrast dye from a CT scan that required her to be on dialysis for a month. Patient with history of type 2 diabetes as well as preeclampsia and is currently on nifedipine. She is had prior cholecystectomy. Her PRODUCT ADVISOR is Dr. Urena. Patient is G3, P3. ] Physical Examination: [HEENT-PERRLA, EOMI. Cranial nerves II through XII grossly intact. TMs clear. Mucous membranes moist. No adenopathy. Cardiovascular-regular rate and rhythm without murmur or ectopy Lungs-good aeration bilaterally. Patient has some faint expiratory wheezes noted. No excessive muscle use or retractions. Abdomen-normoactive bowel sounds, soft, nontender, no rebound or rigidity, no peritoneal signs. Extremities-intact ?4, normal range of motion, normal pulses, atraumatic] Test Results: [EKG obtained on arrival showed a sinus rhythm with a ventricular rate of 67 bpm with no acute ST segment changes. CBC with differential, 10, hemoglobin 12.6, hematocrit 39, platelets 312. Chemistries unremarkable. Troponin was less than 0.15. D-dimer was 1.05.] Emergency Department Course and Treatment: [Case was discussed with patient's PRODUCT ADVISOR Dr. Britany Urena who agreed with plan to give patient Lovenox until she can have a VQ scan next week as apparently they are not performed on weekends. At this point patient has a severe allergy to CT contrast dye that led to renal failure and she does not want to pursue a CT scan to evaluate for PE and I feel that certainly is understandable and reasonable.] Treatment Plan: [Patient will be treated with Lovenox and she will be given a prescription for a VQ scan to be performed in 3 days.] Disposition: [Discharged home in stable condition] Impression: [Dyspnea-etiology uncertain] This note was generated with [email or web address] dictation software. It may contain incorrect words, spelling, and punctuation that were not noted in review of the chart prior to signing ED Disposition - Plan for ED Patient: Referrals: Bryant Cardona MD [Primary Care Provider] -
[2019-05-23] MEDS: Ipratropium/Albuterol Sulfate 3 ML AMPUL.NEB INHALATION (16:42)
[2019-05-23 16:52] LABS: Absolute Lymphocyte Count 2.06 X10^3/uL (0.83-4.51); Basophil# 0.06 X10^3/uL; Basophil% 0.6 % (0-1); Eosinophil# 0.26 X10^3/uL; Eosinophils% 2.6 % (0-5); Hematocrit 39.1 % (37-47); Hemoglobin 12.6 g/dL (12.0-15.0); Lymphocyte # 2.06 X10^3/ul (4.0); Lymphocyte % 20.6 % (19-41); Mean Corp Hgb Conc 32.2 g/dL (32-36); Mean Corpuscular Hgb 27.9 pg (27.0-32.0); Mean Corpuscular Volume 86.5 fL (81-99); Mean Platelet Vol. 10.1 fl (6.2-12.0); Monocyte# 0.52 X10^3/uL; Monocyte% 5.2 % (0-10); NRBC Flagged by Analyzer 0 % (0-5); Neutrophil # 6.98 X10^3/uL (2.7-7.7); Neutrophil % 69.9 % (47-70); Platelet Count 312 K/mm3 (150-450); RBC Distribution Width SD 46.8 fl (35.1-43.9); Red Blood Count 4.52 M/mm3 (4.2-5.4)
[2019-05-23 17:05] VITALS: PULSE 90; RESP 18
[2019-05-23 17:13] LABS: ALB/GLOB Ratio 0.8 RATIO (0.9-2.4); AST(SGOT) 58 U/L (15-37); Alanine Aminotransfer ALT/SGPT 64 U/L (13-56); Albumin, Serum 3.5 g/dL (3.2-5.0); Alkaline Phosphatase 94 U/L (45-117); Anion Gap 12 (5-15); BUN 17 mg/dL (7-18); BUN/Creat Ratio 19.1 RATIO (10-20); Calcium,Total 8.2 mg/dL (8.5-10.1); Chloride 105 mmol/L (98-107); Creatinine, Serum 0.89 mg/dL (0.55-1.02); EST Glomerular Filtration Rate 83 mL/min (>60); Est Glom Filt Rate - Afr Amer 101 mL/min (>60); Estimated Creatinine Clearance 81.32 ml/min; Globulin 4.3 g/dL (2.2-4.2); Glucose 115 mg/dL (74-106); Potassium 3.9 mmol/L (3.5-5.1); Protein, Total 7.8 g/dL (6.4-8.2); Sodium Level 136 mmol/L (136-145)
[2019-05-23 17:15] LABS: D-Dimer Quantitative (DVT/PE) 1.05 FEU/ug/m (0.27-0.49)
[2019-05-23 17:18] VITALS: RESP 22
--- NOTE | 2019-05-23 18:12 | RAD_ITS ---
STUDY: X-RAY CHEST REASON FOR EXAM: Female, 23 years old. Shortness of breath TECHNIQUE: PA and lateral views the chest COMPARISON: X-ray chest September 27, 2017 FINDINGS: The lungs are clear. There are no pleural effusions. There is no pneumothorax. The heart is normal in size. The visualized osseous structures are within normal limits. RAD/Chest PA and Lateral IMPRESSION: No acute thoracic pathology. Electronically Signed: Bryant Sher, at 18:50 EST Tel , Service support ,
[2019-05-23] MEDS: Enoxaparin 100 MG/ML Syringe SC (19:03)
[2019-05-23] MEDS: 0.9% Normal Saline 1,000 ML 150 ML IV (19:04)
[2019-05-23 19:06] VITALS: BP 117/65; PULSE 91; RESP 18; O2SAT 96
[2019-05-23 19:10] LABS: Bacteria 0 SEEN /hpf (None Seen); Mucous, Urine 0 SEEN /hpf (<or=2+); Squamous Epithelial Cells - UA 0 SEEN /hpf (5-10)
[2019-05-23 19:21] LABS: Color, Urine Yellow (Yellow); Glucose, Dipstick Normal (Normal); Ketone-Dipstick Negative (Negative); Leukocyte Esterase-Dipstick 500 /ul (Negative); Nitrite-Dipstick Negative (Negative); Occult Blood-Urine 250 /ul (Negative); Protein-Dipstick 30 mg/dl (Negative); Specific Gravity, Urine 1.025 (1.002-1.030); Urine Bilirubin Dipstick Negative (Negative); Urine Clarity Cloudy (Clear); Urine Urobilinogen Normal (Normal)
[2019-05-23 19:31] LABS: Red Blood Cells-Urine 50-100 SEEN /hpf (0-5); White Blood Cells 25-50 SEEN /hpf (0-5)
--- NOTE | 2019-05-23 19:49 | ED.DEP ---
ED Disposition - Plan for ED Patient: Instructions: ED Dyspnea Referrals: Bryant Cardona MD [Primary Care Provider] - Britany Urena MD [STAFF PHYSICIAN] - 3-5 Days
== END 2019-05-23 20:01 | disposition home or self-care (01) ==
LOC: ED 16:30
PROVIDERS: Emergency Provider Emergency Medicine; PCP Family Medicine
DX: O99.53 Diseases of the respiratory system complicating the puerperium (principal); R06.00 Dyspnea, unspecified; O24.13 Pre-existing type 2 diabetes mellitus, in the puerperium; E11.9 Type 2 diabetes mellitus without complications
CPT/HCPCS: 71046; 80053; 81001; 84484; 85025; 85379; 93005; 94640; 96360; 96372; 99282; J7030; A4216

== ENCOUNTER 2019-05-24 15:07 | Emergency (ER) | payer MEDICAID, SELFPAY ==
[2019-05-23 16:16] VITALS: BMI 40.7
[2019-05-24 15:08] VITALS: BP 120/84; PULSE 101; RESP 16; TEMP 36.9; O2SAT 95; BMI 40.7
[2019-05-24 16:13] VITALS: PULSE 91; RESP 18
[2019-05-24] MEDS: Ipratropium/Albuterol Sulfate 3 ML AMPUL.NEB INHALATION (16:13)
[2019-05-24 16:17] LABS: Hematocrit 35.2 % (37-47); Hemoglobin 12.1 g/dL (12.0-15.0); Mean Corp Hgb Conc 34.4 g/dL (32-36); Mean Corpuscular Hgb 30.5 pg (27.0-32.0); Mean Corpuscular Volume 88.7 fL (81-99); Platelet Count 279 K/mm3 (150-450); RBC Distribution Width CV 15.2 % (11.6-14.6); RBC Distribution Width SD 46.8 fl (35.1-43.9); Red Blood Count 3.97 M/mm3 (4.2-5.4); White Blood Count 8.8 K/mm3 (4.4-11.0)
[2019-05-24 16:24] LABS: Prothrombin Time (Protime)PT. 13.2 SECONDS (11.7-14.9)
[2019-05-24 16:26] LABS: Partial Thromboplast Time 36.9 Seconds (24.1-36.2)
[2019-05-24 16:34] VITALS: BP 120/84; PULSE 98; RESP 16; TEMP 36.9; O2SAT 95
[2019-05-24 16:41] LABS: Protein, Urine (Random) 61.7 mg/dL (<11.9); Protein:Creat Ratio 284 mg/g CRE (0-200)
[2019-05-24 17:04] LABS: ALB/GLOB Ratio 0.8 RATIO (0.9-2.4); AST(SGOT) 81 U/L (15-37); Alanine Aminotransfer ALT/SGPT 63 U/L (13-56); Albumin, Serum 3.4 g/dL (3.2-5.0); Alkaline Phosphatase 94 U/L (45-117); Anion Gap 9 (5-15); BUN 12 mg/dL (7-18); BUN/Creat Ratio 13.9 RATIO (10-20); Calcium,Total 8.4 mg/dL (8.5-10.1); Chloride 111 mmol/L (98-107); Creatinine, Serum 0.86 mg/dL (0.55-1.02); EST Glomerular Filtration Rate 86 mL/min (>60); Est Glom Filt Rate - Afr Amer 104 mL/min (>60); Estimated Creatinine Clearance 84.16 ml/min; Globulin 4.2 g/dL (2.2-4.2); Glucose 115 mg/dL (74-106); Potassium 3.7 mmol/L (3.5-5.1); Protein, Total 7.6 g/dL (6.4-8.2); Sodium Level 141 mmol/L (136-145)
[2019-05-24 17:27] VITALS: BP 125/79; PULSE 92; RESP 16; TEMP 37; O2SAT 96
--- NOTE | 2019-05-24 18:09 | ED.VIS.GEN ---
History of Present Illness Chief Complaint: Cough Informant: Patient Onset: Weeks - 5 Narrative: Presents with worsening dyspnea today with wheezing. Denies any asthma history. Annie has been sick with a cough for the past 5 weeks. She reports she is 15 days due to induction secondary to preeclampsia at 34 weeks. She is a G3, P3. Followed by Dr. Tim Calixto. Annie has been seen by healthcare provider multiple times in symptoms. Annie was seen yesterday initially urgent care sent to the ED yesterday and worked up. 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 States therefore she was sent home. She was told to come back if symptoms worsen. Patient is on 30 mg nifedipine due to her preeclampsia and hypertension. She is taking her medications. Today reports headache. Denies head injury. No abdominal pain or nausea or vomiting. No dizziness. Review of records notes she was seen yesterday work-up with elevated d-dimer. Chest x-ray negative. Labs no slightly elevated AST and ALT. Urine noted proteins. From notes, due to her elevated dimer and her allergies, there was discussion with her STAFF REGISTERED NURSE, Lovenox was plan for bridging until she get a VQ scan on Sunday. I discussed this with the patient, she states she is not sent home with any Lovenox. Therefore did not receive anything since yesterday. Prior similar symptoms: Yes Past Medical History - Allergies and Home Meds Allergies/Adverse Reactions: Allergies Gadolinium-MRI Contrast Medium [DYE] Allergy (Severe, Verified 05/23/19 16:19) Other kidney failure Primary Care Physician: Britany Urena MD [STAFF PHYSICIAN] - 3-5 Days Past Medical History: - - Preeclampsia, hypertension, type 2 diabetes, hyperlipidemia Surgical History: cholecystectomy Smoking Status: Never smoker - Family History Maternal Family History: Family History (Last Reviewed 05/08/19 @ 14:09 by Sharmaine Luna) Mother Diabetes Grandmother Diabetes Grandfather Diabetes Father hyperlipidemia Unknown Depression Hypertension Family History: Reports: Diabetes Paternal Family History: Family History (Last Reviewed 05/08/19 @ 14:09 by Sharmaine Luna) Mother Diabetes Grandmother Diabetes Grandfather Diabetes Father hyperlipidemia Unknown Depression Hypertension Family History: Reports: Diabetes Review of Systems General: Denies: Chills, Fever, Sweats Eyes: Denies: Visual changes - bilaterally, Diplopia ENT: Denies: Rhinorrhea, Sore throat Cardiovascular: Denies: Chest pain, Palpitations Respiratory: Reports: Dyspnea. Denies: Cough, Dyspnea on exertion Gastrointestinal: Denies: Abdominal pain, Nausea, Vomiting, Diarrhea, Melena, Hematochezia Genitourinary: Denies: Dysuria, Hematuria, Frequency Musculoskeletal: Denies: Back pain, Extremity Pain Skin: Denies: Rash, Wounds Neurological: Denies: Headache, Weakness, Numbness Physical Exam Vital Signs/Narrative: Vital Signs Temp Pulse Resp BP Pulse Ox 05/24/19 17:27 98.6 F 92 16 125/79 H 96 05/24/19 16:34 98.5 F 98 16 120/84 H 95 05/24/19 16:13 91 18 05/24/19 15:08 98.5 F 101 H 16 120/84 H 95 Inital Vital Signs reviewed: Yes General: Well nourished, Well developed, No Acute Distress Head: Normocephalic, Atraumatic Eyes: Perrl, EOMI ENT: Moist mucous membranes, No rhinorrhea Neck: Supple, Nontender Cardiovascular: Regular rate, Regular rhythm, No murmurs Respiratory: No distress, Chest nontender, Rhonchi, Wheezing Abdomen: Soft, Nontender, Nondistended, Normal bowel sounds Back: Nontender, Normal Inspection Extremities: Nontender, No edema Skin: Normal color, No rash Neurological: Alert, Oriented x3, Cranial nerves II-XII grossly intact, Normal Strength, Normal Sensation Psychological: Normal affect, Normal Mood Diagnostic/Tx/Re-eval - Medical Decision Making Abnormal Lab Results 05/24/19 05/24/19 05/24/19 16:00 16:00 16:00 WBC 8.8 RBC 3.97 L Hgb 12.1 Hct 35.2 L MCV 88.7 MCH 30.5 MCHC 34.4 D RDW Std Deviation 46.8 H RDW Coeff of Varun 15.2 H Plt Count 279 MPV 10.0 PT 13.2 INR 1.0 APTT 36.9 H Sodium 141 Potassium 3.7 Chloride 111 H Carbon Dioxide 21.0 Anion Gap 9 BUN 12 Creatinine 0.86 Estim Creat Clear Calc 84.16 Est GFR (MDRD) Af Amer 104 Est GFR (MDRD) Non-Af 86 BUN/Creatinine Ratio 13.9 Glucose 115 H Uric Acid 10.0 H Calcium 8.4 L Total Bilirubin 0.40 AST 81 H ALT 63 H Alkaline Phosphatase 94 Total Protein 7.6 Albumin 3.4 Globulin 4.2 Albumin/Globulin Ratio 0.8 L U Random Total Protein Urine Creatinine Protein/Creatinin Ratio 05/24/19 16:15 WBC RBC Hgb Hct MCV MCH MCHC RDW Std Deviation RDW Coeff of Varun Plt Count MPV PT INR APTT Sodium Potassium Chloride Carbon Dioxide Anion Gap BUN Creatinine Estim Creat Clear Calc Est GFR (MDRD) Af Amer Est GFR (MDRD) Non-Af BUN/Creatinine Ratio Glucose Uric Acid Calcium Total Bilirubin AST ALT Alkaline Phosphatase Total Protein Albumin Globulin Albumin/Globulin Ratio U Random Total Protein 61.7 H Urine Creatinine 217.00 Protein/Creatinin Ratio 284 H Patient with headaches. Blood pressure 120s over 84 on arrival. There is no focal neurologic deficits. With her history I did send for preeclampsia labs, slightly elevated liver enzymes and elevated protein creatinine ratio. Treated with DuoNeb treatment with improvement. Her vitals remained stable recheck blood pressure 125/77. Blood pressures controlled however due to elevated labs I did discuss with her OB Dr. Urena, states this is normal for , would expect protein creatinine ratio to be greater than 300. She does recall the discussion yesterday and reports and understands the plan was to have the Lovenox bridge and a VQ scan on Sunday which was supposed be ordered by ED physician. Patient does confirm that she has the order for the VQ scan however not the Lovenox. She was given Lovenox injection in the ED along with a 3-day prescription sent to her pharmacy. She understands injections due to being a diabetic. She has enough inhaler at home for her wheezing should continue symptomatic treatment and plan outpatient VQ scan on Sunday with follow-up. Signs and symptom discussed return. Otherwise follow-up. All questions were answered. ED Disposition - Plan for ED Patient: Disposition: Home or Assisted Living Diagnosis: Bronchitis, Dyspnea Instructions: BRONCHITIS with Wheezing (Adult) Prescriptions: Enoxaparin [Lovenox] 120 mg SUBCUT Q12@0600,1800 #6 syringe Transmission Status: Received by [id number] Referrals: Britany Urena MD [STAFF PHYSICIAN] - 3-5 Days
[2019-05-24] MEDS: Enoxaparin 120 MG/0.8 ML Syringe SC (18:22)
[2019-05-24 18:24] VITALS: BP 124/86; PULSE 90; RESP 16; O2SAT 94
== END 2019-05-24 18:24 | disposition home or self-care (01) ==
PROVIDERS: Emergency Provider Emergency Medicine; PCP Family Medicine
DX: O99.53 Diseases of the respiratory system complicating the puerperium (principal); J40 Bronchitis, not specified as acute or chronic; R06.00 Dyspnea, unspecified; O14.95 Unspecified pre-eclampsia, complicating the puerperium; Z79.899 Other long term (current) drug therapy; O24.13 Pre-existing type 2 diabetes mellitus, in the puerperium; E11.9 Type 2 diabetes mellitus without complications
CPT/HCPCS: 80053; 82570; 84156; 84550; 85027; 85610; 85730; 94640; 96372; 99283; A4216

== ENCOUNTER 2019-06-06 02:41 | Inpatient (IN) | payer MEDICAID, SELFPAY ==
[2019-06-06] VITALS (26 sets, daily range): BP systolic 100–156; BP diastolic 67–99; PULSE 67–104; RESP 16–24; TEMP 36.1–37.2; O2SAT 89–98; BMI 40.6; BMI 40.9; BMI 41.0
--- NOTE | 2019-06-06 03:04 | RAD_ITS ---
STUDY: X-RAY CHEST REASON FOR EXAM: Female, 23 years old. PT C/O SOB AND COUGH X3 WEEKS. FEVER X3 DAYS. HIGHEST FEVER 104.2 TECHNIQUE: Single AP portable view of the chest. COMPARISON: 05/23/2019 FINDINGS: There are superimposed monitor leads. There is new airspace disease in the left base. There is no demonstrated pleural abnormality. Normal size heart. Normal mediastinum and gwen. Normal visualized pulmonary arteries. Normal visualized aortic arch and descending thoracic aorta. Normal visualized thoracic spine. Normal visualized ribs, clavicles, and shoulders. There is no demonstrated abnormality of the visualized soft tissue structures of the upper abdomen. RAD/Chest 1 View (Portable) IMPRESSION: Infiltrate in the left lower lobe possible lingula, new since previous exam. Electronically Signed: Ilana Adkins MD at 4:27 EDT , Service support ,
--- NOTE | 2019-06-06 03:11 | EKG12_ITS ---
Test Reason : SOB Blood Pressure : / mmHG Vent. Rate : 093 BPM Atrial Rate : 093 BPM P-R Int : 152 ms QRS Dur : 078 ms QT Int : 362 ms P-R-T Axes : 046 051 040 degrees QTc Int : 450 ms Normal sinus rhythm Septal infarct , age undetermined Abnormal ECG Confirmed by SHIRLENE JORGENSEN ([id number]), restaurant expeditor SILVIA HART ([id number]) on 06/09/2019 11:01:44 AM Referred By: NEHEMIAH Confirmed By:SHIRLENE JORGENSEN
--- NOTE | 2019-06-06 03:13 | ED.DCSUM_ITS ---
History of Present Illness Chief Complaint: Shortness of Breath Informant: Patient Onset: Days - 2-3 Context: Gradual Onset Timing: Intermittent Quality: bronchospasm and ESCALERA Location: chest Current Severity: Mild Maximum Severity: Moderate Worsened by: exertion, coughing Relieved by: rest Associated Symptoms: occasionally productive cough, right upper pleuritic chest pain Narrative: Patient is 4 weeks , she has been coughing for 3 weeks it has been productive of phlegm, she thought it was improving and then she had a fever with increased coughing that started 3 days ago, it is more of a dry cough, she denies any rhinorrhea or congestion, her throat is a little sore, her ears ache, she has myalgias, her fever has been up to 104. She denies any travel out of the area or contact with any known coronavirus patients or influenza that she knows of. She had the flu vaccine this past winter season. Influenza is still highly prevalent at this time. She denies any recent pain or swelling in her legs. She had the fevers and increased cough before she started feeling dyspneic. - Past Medical History (1) Diabetes in Status: Chronic Comment: sees endocrinology. optho consult. Seeing Dr. Cortes. Growth US at 28 wk, weekly bpps and weekly nsts after 32 weeks deliver at 38 (2) History of pancreatitis Status: Resolved Comment: monitor PRN (3) History of severe pre-eclampsia Status: Chronic Comment: nl baseline labs (4) Hypertension affecting Status: Chronic Comment: labetalol 100 BID. baby asa weekly BLADIMIR after 32 (5) Sterilization Status: Chronic Comment: titel 19 signed 03/27/19 plan PPTL (6) Depression Status: Chronic Comment: zoloft, encourage counseling. (7) Hypertension Status: Chronic Past Medical History - Allergies and Home Meds Allergies/Adverse Reactions: Allergies Gadolinium-MRI Contrast Medium [DYE] Allergy (Severe, Verified 06/06/19 02:51) KIDNEY FAILURE kidney failure Primary Care Physician: Bryant Cardona MD [Primary Care Provider] - Surgical History: cholecystectomy Smoking Status: Never smoker - Family History Maternal Family History: Family History (Last Reviewed 05/08/19 @ 14:09 by Sharmaine Luna) Mother Diabetes Grandmother Diabetes Grandfather Diabetes Father hyperlipidemia Unknown Depression Hypertension Family History: Reports: Diabetes Paternal Family History: Family History (Last Reviewed 05/08/19 @ 14:09 by Sharmaine Luna) Mother Diabetes Grandmother Diabetes Grandfather Diabetes Father hyperlipidemia Unknown Depression Hypertension Family History: Reports: Diabetes Review of Systems General: Reports: Chills, Fever, Malaise, Sweats Eyes: Denies: Visual changes - bilaterally, Diplopia ENT: Reports: Bilateral ear pain, Sore throat. Denies: Rhinorrhea Cardiovascular: Reports: Chest pain. Denies: Palpitations Respiratory: Reports: Dyspnea, Cough, Sputum, Dyspnea on exertion. Denies: Orthopnea Gastrointestinal: Denies: Abdominal pain, Nausea, Vomiting, Diarrhea, Melena, Hematochezia Genitourinary: Denies: Dysuria, Hematuria, Frequency Musculoskeletal: Reports: Myalgias. Denies: Neck pain, Back pain, Swelling, Extremity Pain Skin: Denies: Rash, Wounds Neurological: Denies: Headache, Weakness, Numbness Physical Exam Vital Signs/Narrative: Vital Signs Temp Pulse Resp BP Pulse Ox 06/06/19 02:44 99.0 F 102 H 20 H 156/99 H 94 06/06/19 02:42 99.0 F 102 H 20 H 156/99 H 94 Inital Vital Signs reviewed: Yes General: Well nourished, Well developed, No Acute Distress Head: Normocephalic, Atraumatic Eyes: Perrl, EOMI ENT: Moist mucous membranes, No rhinorrhea, TM's clear, - - Posterior oropharynx clear, airway patent, no stridor, no trismus. Negative for: Nasal congestion, Sinus tenderness Neck: Supple, Nontender, No lymphadenopathy Cardiovascular: Regular rate, Regular rhythm, No murmurs, Tachycardia Respiratory: No distress, Chest nontender, Wheezing - Very slight end expiratory bilaterally. Negative for: Rales, Rhonchi Abdomen: Soft, Nontender, Nondistended, Normal bowel sounds Back: Nontender, Normal Inspection. Negative for: CVA tenderness Extremities: Nontender, No edema. Negative for: Calf Tenderness Skin: Normal color, No rash, No Trauma Neurological: Alert, Oriented x3, Cranial nerves II-XII grossly intact, Normal Strength, Normal Sensation, Normal Gait Psychological: Normal affect, Normal Mood Diagnostic/Tx/Re-eval Impressions Chest X-Ray 06/06/19 03:04 IMPRESSION: Infiltrate in the left lower lobe possible lingula, new since previous exam. Electronically Signed: Ilana Adkins MD at 4:27 EDT , Service support , 06/06/19 03:04 Chest 1 View (Portable) [RAD] Stat 06/06/19 03:26 Mucosa - Nose Rapid RSV (DFA) - Final 06/06/19 03:26 Mucosa - Nose Influenza Types A,B Direct FA (BILLY) - Final Laboratory Results 06/06/19 06/06/19 06/06/19 03:10 03:10 03:10 WBC 9.7 RBC 3.62 L Hgb 11.6 L Hct 33.0 L MCV 91.2 MCH 32.0 MCHC 35.2 RDW Std Deviation 46.4 H RDW Coeff of Varun 15.4 H Plt Count 334 MPV 9.8 Immature Gran % (Auto) 2.300 H Neut % (Auto) 79.5 H Lymph % (Auto) 12.4 L [place] % (Auto) 5.3 Eos % (Auto) 0.2 Baso % (Auto) 0.3 Absolute Neuts (auto) 7.7 Absolute Lymphs (auto) 1.20 Nucleated RBC % 0 PT 13.8 INR 1.1 APTT 40.9 H Sodium 140 Potassium 4.0 Chloride 106 Carbon Dioxide 25.0 Anion Gap 9 BUN 9 Creatinine 0.75 Estim Creat Clear Calc 96.50 Est GFR (MDRD) Af Amer 123 Est GFR (MDRD) Non-Af 101 BUN/Creatinine Ratio 12.0 Glucose 178 H Lactic Acid Calcium 9.1 Total Bilirubin 0.40 AST 19 ALT 37 Alkaline Phosphatase 111 Troponin I < 0.015 Total Protein 8.5 H Albumin 3.3 Globulin 5.2 H Albumin/Globulin Ratio 0.6 L Urine Color Urine Clarity Urine pH Ur Specific [place] Urine Protein Urine Glucose (UA) Urine Ketones Urine Occult Blood Urine Nitrite Urine Bilirubin Urine Urobilinogen Ur Leukocyte Esterase Urine RBC Urine WBC Ur Squamous Epith Cells Urine Bacteria Urine Mucus 06/06/19 06/06/19 03:10 03:50 WBC RBC Hgb Hct MCV MCH MCHC RDW Std Deviation RDW Coeff of Varun Plt Count MPV Immature Gran % (Auto) Neut % (Auto) Lymph % (Auto) [place] % (Auto) Eos % (Auto) Baso % (Auto) Absolute Neuts (auto) Absolute Lymphs (auto) Nucleated RBC % PT INR APTT Sodium Potassium Chloride Carbon Dioxide Anion Gap BUN Creatinine Estim Creat Clear Calc Est GFR (MDRD) Af Amer Est GFR (MDRD) Non-Af BUN/Creatinine Ratio Glucose Lactic Acid 2.1 H* Calcium Total Bilirubin AST ALT Alkaline Phosphatase Troponin I Total Protein Albumin Globulin Albumin/Globulin Ratio Urine Color Yellow Urine Clarity Cloudy Urine pH 6.5 Ur Specific [place] 1.020 Urine Protein 500 H Urine Glucose (UA) Normal Urine Ketones Negative Urine Occult Blood 250 H Urine Nitrite Negative Urine Bilirubin Negative Urine Urobilinogen 1 H Ur Leukocyte Esterase 500 H Urine RBC 25-50 SEEN Urine WBC 10-25 SEEN Ur Squamous Epith Cells 10-25 SEEN Urine Bacteria 1+ Urine Mucus 0 SEEN - Rhythm Strip Rhythm Strip: Sinus Rhythm Rate: 93 Ectopy: None - EKG Initial EKG Interpretation: Sinus Rhythm, No Acute Injury Pattern, - - Qs in V1-2 Prior: Unchanged - Medical Decision Making On my interpretation chest x-ray shows left lower lobe infiltrate. This was confirmed by radiologist interpretation. Her lactate is just over 2. She appears ill but not critically so. She was borderline hypoxic in triage and was placed on oxygen in the room. She does not have specific risk factors for Covid19, but at this point in time the degree of community spread is unknown. Therefore it was considered in the differential diagnosis especially given that she has had no rhinorrhea or congestion, and certainly bacterial pneumonia is in the differential here as well. She likely has not had it for 3 weeks, but it is certainly possible that she contracted it more recently. She has no significant leukocytosis, yet she does not have leukopenia or neutropenia either. We do not have the ability to test for the novel coronavirus at this hospital, but following the hospital and [facility] protocols, initially influenza and RSV were sent, they were negative. Therefore a viral PCR panel was sent. We ambulated her. For the most part she did pretty well but became winded quickly, tachycardic, and her pulse ox went down to 89% on room air. She was placed back on a nasal cannula. She feels ill enough to be admitted to the hospital and I think she appears ill enough for that. Will keep her on droplet precautions and admit her to the ICU given her elevated lactic acid. Of note, pulmonary embolus was considered, but thought less likely given that she has positive radiographic findings in context of a respiratory illness and a fever of 104. At this time I think that the risk of angiography outweighs the potential benefits since she had renal failure from a single dye load in the past. ED Disposition - Plan for ED Patient: Disposition: Acute Care Hospital [facility] Diagnosis: Pneumonia, Hypoxemia, Severe sepsis Referrals: Bryant Cardona MD [Primary Care Provider] -
[2019-06-06 03:30] LABS: Absolute Neutrophil Count 7.7 X10^3/uL (2.0-7.7); Basophil# 0.03 X10^3/uL; Basophil% 0.3 % (0-1); Eosinophil# 0.02 X10^3/uL; Eosinophils% 0.2 % (0-5); Hemoglobin 11.6 g/dL (12.0-15.0); Lymphocyte % 12.4 % (19-41); Mean Corp Hgb Conc 35.2 g/dL (32-36); Mean Corpuscular Volume 91.2 fL (81-99); Mean Platelet Vol. 9.8 fl (6.2-12.0); Monocyte# 0.51 X10^3/uL; Monocyte% 5.3 % (0-10); NRBC Flagged by Analyzer 0 % (0-5); Neutrophil # 7.71 X10^3/uL (2.7-7.7); Neutrophil % 79.5 % (47-70); Platelet Count 334 K/mm3 (150-450); RBC Distribution Width CV 15.4 % (11.6-14.6); RBC Distribution Width SD 46.4 fl (35.1-43.9); Red Blood Count 3.62 M/mm3 (4.2-5.4); White Blood Count 9.7 K/mm3 (4.4-11.0)
[2019-06-06] MEDS: 0.9% Normal Saline 1,000 ML 999 ML IV (03:35)
[2019-06-06 03:37] LABS: International Normalized Ratio 1.1; Prothrombin Time (Protime)PT. 13.8 SECONDS (11.7-14.9)
[2019-06-06 03:38] LABS: Partial Thromboplast Time 40.9 Seconds (24.1-36.2)
[2019-06-06 03:49] LABS: ALB/GLOB Ratio 0.6 RATIO (0.9-2.4); AST(SGOT) 19 U/L (15-37); Alanine Aminotransfer ALT/SGPT 37 U/L (13-56); Albumin, Serum 3.3 g/dL (3.2-5.0); Alkaline Phosphatase 111 U/L (45-117); Anion Gap 9 (5-15); BUN 9 mg/dL (7-18); Calcium,Total 9.1 mg/dL (8.5-10.1); Chloride 106 mmol/L (98-107); Creatinine, Serum 0.75 mg/dL (0.55-1.02); EST Glomerular Filtration Rate 101 mL/min (>60); Est Glom Filt Rate - Afr Amer 123 mL/min (>60); Globulin 5.2 g/dL (2.2-4.2); Glucose 178 mg/dL (74-106); Protein, Total 8.5 g/dL (6.4-8.2); Sodium Level 140 mmol/L (136-145)
[2019-06-06 03:51] LABS: Lactic Acid 2.1 mmol/L (0.4-1.9)
[2019-06-06 03:57] LABS: Mucous, Urine 0 SEEN /hpf (<or=2+)
[2019-06-06 03:59] LABS: Color, Urine Yellow (Yellow); Glucose, Dipstick Normal (Normal); Ketone-Dipstick Negative (Negative); Leukocyte Esterase-Dipstick 500 /ul (Negative); Nitrite-Dipstick Negative (Negative); Occult Blood-Urine 250 /ul (Negative); Protein-Dipstick 500 mg/dl (Negative); Urine Bilirubin Dipstick Negative (Negative); Urine Clarity Cloudy (Clear); Urine Urobilinogen 1 mg/dl (Normal); Urine pH 6.5 (5.0 - 8.0)
[2019-06-06 04:06] LABS: White Blood Cells 10-25 SEEN /hpf (0-5)
[2019-06-06 04:07] LABS: Bacteria 1+ /hpf (None Seen); Squamous Epithelial Cells - UA 10-25 SEEN /hpf (5-10)
[2019-06-06 04:08] LABS: Red Blood Cells-Urine 25-50 SEEN /hpf (0-5)
[2019-06-06] MEDS: levoFLOXacin IV 750 MG/150 ML BAG 100 MG IV (04:56)
--- NOTE | 2019-06-06 05:39 | HP.PCM_ITS ---
Problem List (1) Severe sepsis Status: Acute (2) Hypertension Status: Chronic (3) Pneumonia Status: Acute (4) Hypoxemia Status: Acute (5) Severe sepsis Status: Acute (6) History of severe pre-eclampsia Status: Chronic Comment: nl baseline labs (7) Diabetes in Status: Chronic Qualifiers: Comment: sees endocrinology. optho consult. Seeing Dr. Cortes. Stacie US at 28 wk, weekly bpps and weekly nsts after 32 weeks deliver at 38 (8) Depression Status: Chronic Qualifiers: Comment: zoloft, encourage counseling. History of Present Illness Date of Admission: 06/06/19 Chief Complaint: sob The patient is a 23 year old F with a significant history of diabetes mellitus; hypertension and who is 4 weeks presenting with 3 and half week history of progressively worsening shortness of breath. Her shortness of breath worsened with exertion. Associated with her symptoms is productive cough which was initially yellow but now it is dark. Patient went to her PCPs office and she was prescribed a steroid but told him to take it until her symptoms worsened. On the day before presentation she called her PCPs office and she was advised to start taking her steroid because her symptoms had worsened. She took only 1 dose of her steroids. On the night before presentation patient had severe shortness of breath with orthopnea that prompted her to come to emergency department. Further patient has paroxysmal nocturnal dyspnea; nausea; poor appetite; posttussive emesis; and headache. She reports a home temperature of 104 Fahrenheit. Also she has chills; rigors; general muscle aches; headache; mild runny nose; sore throat; and chest tightness. Patient denies any contacts with anybody with Covid 19. She denies any travel history. 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 Past Medical History Past Medical History (Chronic Problems): Chronic Problems (Last Reviewed 06/06/19 @ 07:[address] Isaías Galdamez MD) Hypertension (Chronic) History of severe pre-eclampsia (Chronic) nl baseline labs Diabetes in (Chronic) sees endocrinology. optho consult. Seeing Dr. Cortes. Stacie FRAUSTO at 28 wk, weekly bpps and weekly nsts after 32 weeks deliver at 38 Depression (Chronic) riccooft, encourage counseling. Medical History: Medical History (Last Reviewed 06/06/19 @ 07:[address] Isaías Galdamez MD) Depression (Chronic) F32.9 zoloft, encourage counseling. High triglycerides E78.1 Hx of transfusion of whole blood Z92.89 Hx: UTI (urinary tract infection) Z87.440 Hyperlipidemia E78.5 Kidney failure N19 HTN (hypertension) I10 Acute pancreatitis (Resolved) K85.90 Migraine headache (Resolved) G43.909 Type 2 diabetes mellitus (Resolved) E11.9 Hyperlipidemia (Inactive) E78.5 Allergies Gadolinium-MRI Contrast Medium [DYE] Allergy (Severe, Verified 06/06/19 02:51) KIDNEY FAILURE kidney failure Home Medications: Ambulatory Orders Medication Instructions Recorded vitamin#30 30 mg iron-10 1 cap PO DAILY cap 11/19/18 mg iron-folic acid 1 mg-omg3 capsule sertraline 100 mg tablet 100 mg PO DAILY 01/06/19 Nifedipine [Procardia Xl] 30 mg PO DAILY #30 tab.er.24 05/15/19 Prednisone 10 mg PO DAILY 06/06/19 Surgical History: Surgical History (Last Reviewed 06/06/19 @ 07:[address] 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 Isaías Galdamez MD) Mother Diabetes Grandmother Diabetes Grandfather Diabetes Father hyperlipidemia Unknown Depression Hypertension History Items: Diabetes Paternal Family History: Family History (Last Reviewed 06/06/19 @ 07:[address] Isaías Galdamez MD) Mother Diabetes Grandmother Diabetes Grandfather Diabetes Father hyperlipidemia Unknown Depression Hypertension History Items: Diabetes Review of Systems Constitutional: Reports: Chills, Fever. Denies: Weight Change HEENT: Reports: Sinus Drainage, Sore Throat. Denies: Head Aches, Sinus Con gestion Cardiovascular: Reports: Chest Tightness, Orthopnea, Paroxysmal Noc. Dyspnea. Denies: Chest Pain, Palpitations Respiratory: Reports: Cough, Shortness of breath at rest, Sputum production Gastrointestinal: Reports: Nausea, Vomiting. Denies: Abdominal Pain Genitourinary: Denies: Dysuria Musculoskeletal: Denies: Joint Pain, Joint Tenderness Skin: Denies: Rash, Wounds Neurological: Denies: Numbness, Tingling, Focal weakness Psychiatric: Denies: Anxiety, Depression, Homicidal Ideations, Suicidal Ideations Hematologic/ Lymphatic: Denies: Easy Bruising, Easy Bleeding VTE Information - Inpt Only VTE Present on Admission: No VTE Mechan Device Prophylaxis: SCD's, None VTE Pharm Prophylaxis ordered?: No Patient Problems: Active and Suspected Problems (Last Reviewed 06/06/19 @ 07:[address] Isaías Galdamez MD) Pneumonia (Acute) Hypoxemia (Acute) Severe sepsis (Acute) Severe sepsis (Acute) - Physical Exam Vitals/I&O's: Vital Signs Temp Pulse Resp BP Pulse Ox 98.5 F 90 24 H 154/92 H 93 06/06/19 05:04 06/06/19 05:04 06/06/19 05:04 06/06/19 05:04 06/06/19 05:04 Oxygen Flow Rate (L/min) 2 Oxygen Delivery Method Room Air Weight: 104 kg Body Mass Index (BMI) 40.6 Finger Stick Blood Glucose 248 General: Alert, Oriented x3, Cooperative HEENT: Atraumatic, PERRLA, EOMI, Normocephalic, - - No erythema of pharynx. Neck: Supple, No JVD, Negative Carotid Bruits, - - Morbidly obese Lungs: No rhonchi, No wheeze, Rales - At bases with left base worse than right base., Short of Breath, Tachypneic, - - Coughing profusely on examination Cardiovascular: Normal S1, Normal S2, No murmurs, Tachycardic Abdomen: Bowel Sounds Present, Soft, Non Tender Extremities: No edema, Capillary Refill Less than 3 Seconds Skin: No rashes, No breakdown Musculoskeletal: No Tenderness to Palpation of Joints or Extremities Neurological: Cranial nerves II-XII grossly intact Psych/Mental Status: Normal Affect, Appropriate Microbiology Past 72 Hours 06/06/19 03:26 Mucosa - Nose Rapid RSV (DFA) - Final 06/06/19 03:26 Mucosa - Nose Influenza Types A,B Direct FA (BILLY) - Final Laboratory Results 06/06/19 03:10: WBC 9.7, RBC 3.62 L, Hgb 11.6 L, Hct 33.0 L, MCV 91.2, MCH 32.0, MCHC 35.2, RDW Std Deviation 46.4 H, RDW Coeff of Varun 15.4 H, Plt Count 334, MPV 9.8, Immature Gran % (Auto) 2.300 H, Neut % (Auto) 79.5 H, Lymph % (Auto) 12.4 L , [place] % (Auto) 5.3, Eos % (Auto) 0.2, Baso % (Auto) 0.3, Absolute Neuts (auto) 7.7, Absolute Lymphs (auto) 1.20, Nucleated RBC % 0 06/06/19 03:10: PT 13.8, INR 1.1, APTT 40.9 H 06/06/19 03:10: Sodium 140, Potassium 4.0, Chloride 106, Carbon Dioxide 25.0, Anion Gap 9, BUN 9, Creatinine 0.75, Estim Creat Clear Calc 96.50, Est GFR (MDRD) Af Amer 123, Est GFR (MDRD) Non-Af 101, BUN/Creatinine Ratio 12.0, Glucose 178 H, Calcium 9.1, Total Bilirubin 0.40, AST 19, ALT 37, Alkaline Phosphatase 111, Troponin I < 0.015, Total Protein 8.5 H, Albumin 3.3, Globulin 5.2 H, Albumin/Globulin Ratio 0.6 L 06/06/19 03:10: Lactic Acid 2.1 H* 06/06/19 03:50: Urine Color Yellow, Urine Clarity Cloudy, Urine pH 6.5, Ur Specific [place] 1.020, Urine Protein 500 H, Urine Glucose (UA) Normal, Urine Ketones Negative, Urine Occult Blood 250 H, Urine Nitrite Negative, Urine Bilirubin Negative, Urine Urobilinogen 1 H, Ur Leukocyte Esterase 500 H, Urine RBC 25-50 SEEN, Urine WBC 10-25 SEEN, Ur Squamous Epith Cells 10-25 SEEN, Urine Bacteria 1+, Urine Mucus 0 SEEN Assessment/Plan All Active Problems (Last Reviewed 06/06/19 @ 07:[address] Isaías Galdamez MD) Pneumonia (Acute) Hypoxemia (Acute) Severe sepsis (Acute) Severe sepsis (Acute) History of pancreatitis (Resolved) KIM (acute kidney injury) (Resolved) Abdominal pain (Resolved) Acute pancreatitis (Resolved) Cholelithiasis (Resolved) Cholelithiasis and cholecystitis with obstruction (Resolved) History of pre-eclampsia (Resolved) Hypertension affecting in second trimester (Resolved) Migraine headache (Resolved) RUQ abdominal pain (Resolved) Recurrent acute pancreatitis (Resolved) Severe preeclampsia (Resolved) Supervision of high risk in second trimester (Resolved) Type 2 diabetes mellitus (Resolved) The patient is a 23 year old F with a significant history of diabetes mellitus; hypertension and who is 4 weeks presenting with 3 and half week history of progressively worsening shortness of breath; productive cough; orthopnea; paroxysmal nocturnal dyspnea; nausea; poor appetite; posttussive emesis; headache. chills; rigors; general muscle aches; headache; mild runny nose; sore throat; and chest tightness; and found to have tachycardia; tachypnea; bandemia; and radiographic evidence of lingula infiltrate and lactic acidosis consistent with severe sepsis secondary to likely community acquired pneumonia and probable cystitis; with differential diagnosis including viral syndrome escalating into pneumonia.. Severe sepsis community-acquired pneumonia and probable cystitis. Lactic acid: 2.1 RR: Highest of 24 Heart rate: Highest of 102 Oxygen saturation: Documented 89% on room air. Oxygen supplementation to maintain oxygen saturation more than 92%. Blood culture ?2 is pending; follow. Chest x-ray: Infiltrate in the left lower lobe possible lingula, new since previous exams. Respiratory Gram stain and culture ordered Antibiotics: Received Levaquin emergency department. Will start ceftriaxone and azithromycin. IV hydration. Received normal saline 1 L bolus in the emergency department. Continue patient on gentle IV hydration. Zofran PRN Was given albuterol inhaler with spacer at the emergency department. Will order albuterol inhaler as needed. Okay to leave at the bedside for patients. Droplet precautions. Legionella antigen screen and Strep antigen ordered Patient with abnormal urinalysis. Urine culture is pending; follow. Hold home prednisone started a day before presentation. Influenza screen and RSV was negative at emergency department. Comprehensive respiratory pathogen panel was ordered at the emergency department; follow. We will consult production grip. Diabetes mellitus The patient denies that her diabetes is a gestational diabetes. 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 Jimmie Cortes. On presentation blood glucose was elevated. Accu-Chek QA CHS with correction scale insulin. Hypertension On presentation blood pressure was not within goal Home Procardia continued. In the setting of severe sepsis careful monitoring of blood pressure. Depression Sertraline continued. DVT prophylaxis Encouraged to ambulate. SCD ordered. Inpatient E&M: 73723 Init Hosp L3
[2019-06-06] MEDS: Acetaminophen 500 MG Tablet 1000 MG PO (07:03)
--- NOTE | 2019-06-06 07:07 | ED.RN ---
RP PANEL NEGATIVE, MD AWARE.
[2019-06-06 07:24] LABS: Reflex Lactate? Y
[2019-06-06 07:54] LABS: Lactic Acid 1.9 mmol/L (0.4-1.9)
[2019-06-06] MEDS: 0.9% Normal Saline 1,000 ML 75 ML IV (08:15)
--- NOTE | 2019-06-06 10:19 | PCM.CON.CC ---
Problem List (1) Hypertension Status: Chronic Qualifiers: Hypertension type: essential hypertension Qualified Code(s): I10 - Essential (primary) hypertension (2) Pneumonia Status: Acute Qualifiers: Pneumonia type: due to unspecified organism Laterality: left Lung location: lower lobe of lung Qualified Code(s): J18.9 - Pneumonia, unspecified organism (3) Hypoxemia Status: Acute (4) Severe sepsis Status: Acute (5) History of pancreatitis Status: Resolved Comment: monitor PRN (6) History of severe pre-eclampsia Status: Chronic Comment: nl baseline labs (7) Diabetes in Status: Chronic Qualifiers: Comment: sees endocrinology. optho consult. Seeing Dr. Cortes. Growth US at 28 wk, weekly bpps and weekly nsts after 32 weeks deliver at 38 (8) Depression Status: Chronic Qualifiers: Comment: zoloft, encourage counseling. Reason for Consult Date of Consultation: 06/06/19 Reason for Consultation: Sepsis History of Present Illness: The patient is a 23 year old F, with past medical history listed below, who presented to [facility] on 06/06/2019 secondary to 3 weeks of progressive cough productive of yellow to green sputum. Patient had thought it had improved, but had a fever 3 days ago of reported up to 104 ?F. Patient stated started as dry without any concomitant rhinorrhea or congestion. Patient had reported some ear pain and sore throat. Patient denied any travel history, but did state she had a flu vaccine. Patient denied any lower extremity edema or rashes. Patient did report some dyspnea that she attributed to her cough. Patient has had complicated pregnancies in the past with the last one requiring 4 weeks of bedrest prior to delivery 4 weeks ago. In the ER, patient was noted to have a left lower lobe infiltrate with a slightly elevated lactate. Patient was borderline hypoxic, so had to be placed on supplemental oxygen. Patient states she has not required this outside of her pregnancies. Influenza and RSV were negative. Viral PCR has been sent. Patient was admitted for evaluation secondary to lactate over 2. Patient has had an outpatient VQ scan in the past that was negative. Patient reports that she has no history of lung disease previously. Patient had not had any chest trauma. Patient does report that she has been relatively sedentary secondary to her complicated . Patient does have 3 other children at home. Patient has a history of pancreatic issues, but states this does not feel like that. Patient denies any dysuria or rashes. No joint pains have been reported. Review of systems otherwise negative from a constitutional, HEENT, respiratory, cardiovascular, GI, genitourinary, musculoskeletal, skin, neurologic, psychiatric and hematologic system unless stated above. Past Medical History Past Medical History (Chronic Problems): Chronic Problems (Last Reviewed 06/06/19 @ 07:[address] Isaías Galdamez MD) Hypertension (Chronic) History of severe pre-eclampsia (Chronic) nl baseline labs Diabetes in (Chronic) sees endocrinology. optho consult. Seeing Dr. Cortes. Growth US at 28 wk, weekly bpps and weekly nsts after 32 weeks deliver at 38 Depression (Chronic) zoloft, encourage counseling. Medical History: Medical History (Last Reviewed 06/06/19 @ 07:[address] Isaías Galdamez MD) Depression (Chronic) F32.9 zoloft, encourage counseling. High triglycerides E78.1 Hx of transfusion of whole blood Z92.89 Hx: UTI (urinary tract infection) Z87.440 Hyperlipidemia E78.5 Kidney failure N19 HTN (hypertension) I10 Acute pancreatitis (Resolved) K85.90 Migraine headache (Resolved) G43.909 Type 2 diabetes mellitus (Resolved) E11.9 Hyperlipidemia (Inactive) E78.5 Allergies Gadolinium-MRI Contrast Medium [DYE] Allergy (Severe, Verified 06/06/19 02:51) KIDNEY FAILURE kidney failure Home Medications: Ambulatory Orders Medication Instructions Recorded vitamin#30 30 mg iron-10 1 cap PO DAILY cap 11/19/18 mg iron-folic acid 1 mg-omg3 capsule sertraline 100 mg tablet 100 mg PO DAILY 01/06/19 Nifedipine [Procardia Xl] 30 mg PO DAILY #30 tab.er.24 05/15/19 Prednisone 40 mg PO DAILY 06/06/19 Surgical History: Surgical History (Last Reviewed 06/06/19 @ 07:[address] 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 Isaías Galdamez MD) Mother Diabetes Grandmother Diabetes Grandfather Diabetes Father hyperlipidemia Unknown Depression Hypertension History Items: Diabetes Paternal Family History: Family History (Last Reviewed 06/06/19 @ 07:[address] Isaías Galdamez MD) Mother Diabetes Grandmother Diabetes Grandfather Diabetes Father hyperlipidemia Unknown Depression Hypertension History Items: Diabetes Review of Systems Comment: See HPI Patient Problems: Active and Suspected Problems (Last Reviewed 06/06/19 @ 07:[address] Isaías Galdamez MD) Pneumonia (Acute) Hypoxemia (Acute) Severe sepsis (Acute) Severe sepsis (Acute) Objective: Chest x-ray was personally reviewed and shows a left lower lobe infiltrate. - Physical Exam Vitals/I&O's: Vital Signs Temp Pulse Resp BP Pulse Ox 36.9 C 100 22 H 139/94 H 96 06/06/19 06:47 06/06/19 06:47 06/06/19 06:47 06/06/19 06:47 06/06/19 09:30 Oxygen Flow Rate (L/min) 2 Oxygen Delivery Method Nasal Cannula Weight: 104.9 kg Body Mass Index (BMI) 40.9 Finger Stick Blood Glucose 248 Intake and Output for Last 24 Hours 06/04/19 06/05/19 06/06/19 23:59 23:59 23:59 Intake Total 1150 / 1150 Balance 1150 / 1150 General: Alert, Oriented x3, Cooperative, Well developed, Well nourished, - HEENT: Atraumatic, PERRLA, EOMI, Normocephalic Oral: Moist Mucosa, No Gingival or Mucosal Lesions/ Ulcerations, - - Crowded posterior pharynx Neck: Supple, No JVD, Negative Carotid Bruits, No Nodes, Trachea Midline Lungs: No wheeze, No rales, Diminished, Rhonchi - Left base Cardiovascular: Regular rate, Regular Rhythm, Normal S1, Normal S2, No murmurs, No rub noted, No Gallop Abdomen: Bowel Sounds Present, Soft, Non Tender Extremities: No clubbing, No cyanosis, No edema, Capillary Refill Less than 3 Seconds Skin: No rashes, No breakdown Musculoskeletal: No Tenderness to Palpation of Joints or Extremities Lymphatic: No Cervical, Supraclavicular, or Inguinal Adenopathy Neurological: Cranial nerves II-XII grossly intact, Motor Exam 5/5 strength throughout, Sensory exam intact to light touch and pain Psych/Mental Status: Alert and oriented to time, place, person, mood and affect Microbiology Past 72 Hours 06/06/19 04:13 Mucosa - Nasopharyngeal Respiratory Panel (PCR) - Final 06/06/19 03:26 Mucosa - Nose Rapid RSV (DFA) - Final 06/06/19 03:26 Mucosa - Nose Influenza Types A,B Direct FA (BILLY) - Final Laboratory Results 06/06/19 03:10: WBC 9.7, RBC 3.62 L, Hgb 11.6 L, Hct 33.0 L, MCV 91.2, MCH 32.0, MCHC 35.2, RDW Std Deviation 46.4 H, RDW Coeff of Varun 15.4 H, Plt Count 334, MPV 9.8, Immature Gran % (Auto) 2.300 H, Neut % (Auto) 79.5 H, Lymph % (Auto) 12.4 L, [place] % (Auto) 5.3, Eos % (Auto) 0.2, Baso % (Auto) 0.3, Absolute Neuts (auto) 7.7, Absolute Lymphs (auto) 1.20, Nucleated RBC % 0 06/06/19 03:10: PT 13.8, INR 1.1, APTT 40.9 H 06/06/19 03:10: Sodium 140, Potassium 4.0, Chloride 106, Carbon Dioxide 25.0, Anion Gap 9, BUN 9, Creatinine 0.75, Estim Creat Clear Calc 96.50, Est GFR (MDRD) Af Amer 123, Est GFR (MDRD) Non-Af 101, BUN/Creatinine Ratio 12.0, Glucose 178 H, Calcium 9.1, Total Bilirubin 0.40, AST 19, ALT 37, Alkaline Phosphatase 111, Troponin I < 0.015, Total Protein 8.5 H, Albumin 3.3, Globulin 5.2 H, Albumin/Globulin Ratio 0.6 L 06/06/19 03:10: Lactic Acid 2.1 H* 06/06/19 03:50: Urine Color Yellow, Urine Clarity Cloudy, Urine pH 6.5, Ur Specific [place] 1.020, Urine Protein 500 H, Urine Glucose (UA) Normal, Urine Ketones Negative, Urine Occult Blood 250 H, Urine Nitrite Negative, Urine Bilirubin Negative, Urine Urobilinogen 1 H, Ur Leukocyte Esterase 500 H, Urine RBC 25-50 SEEN, Urine WBC 10-25 SEEN, Ur Squamous Epith Cells 10-25 SEEN, Urine Bacteria 1+, Urine Mucus 0 SEEN 06/06/19 07:10: Lactic Acid 1.9 Current Medications Acetaminophen (Tylenol) 650 mg PO Q6H PRN PRN PRN Reason: Pain Score 1-10/Temp > 100.7 F Albuterol Sulfate (Ventolin Hfa (Sp)) 2 puff INHALATION Q2H PRN PRN PRN Reason: sob/wheezing Glucagon () 1 mg IM .X1 PRN PRN Reason: Hypoglycemia Guaifenesin (Mucinex) 1,200 mg PO BID [facility] Sodium Chloride () 1,000 mls @ 75 mls/hr IV .[id number] BORIS Ceftriaxone Sodium 2 gm/ (Sodium Chloride) 50 mls @ 100 mls/hr IV Q24H BORIS Stop: 06/13/19 09:31 Azithromycin 500 mg/ Dextrose 255 mls @ 250 mls/hr IV Q24 BORIS Stop: 06/11/19 10:01 Sodium Chloride () 250 mls @ 15 mls/hr IV .[id number] PRN PRN Reason: Saline Flush Sodium Chloride () 250 mls @ 15 mls/hr IV .[id number] PRN PRN Reason: Additional IVPB Infusion Dextrose (Dextrose 10%-Water) 250 mls @ 999 mls/hr IV .Q16M PRN; Protocol PRN Reason: HYPOGLYCEMIA Insulin Human Lispro (Humalog Kwikpen (Bkc)) 0 unit SC ACHS [facility]; Protocol Nifedipine (Procardia Xl) 30 mg PO DAILY [facility] Ondansetron HCl (Zofran) 4 mg IV Q8H PRN PRN PRN Reason: NAUSEA/VOMITING Sertraline HCl (Zoloft) 100 mg PO DAILY [facility] Sodium Chloride () 10 - 40 ml IV UD PRN PRN Reason: SALINE FLUSH Clinical Impression(s) from Imaging Studies Chest X-Ray 06/06/19 03:04 IMPRESSION: Infiltrate in the left lower lobe possible lingula, new since previous exam. Electronically Signed: Ilana Adkins MD at 4:27 EDT , Service support , Assessment/Plan Active and Suspected Problems (Last Reviewed 06/06/19 @ 07:[address] Isaías Galdamez MD) Pneumonia (Acute) Hypoxemia (Acute) Severe sepsis (Acute) Severe sepsis (Acute) RECOMMENDATIONS: 1. Continue empiric pneumonia antibiotics 2. Aggressive pulmonary toileting 3. Wean oxygen as tolerated 4. Consider outpatient PFT and sleep study 5. Okay to transfer from the intensive care unit my perspective IMPRESSIONS: 1. Severe sepsis secondary to left lower lobe pneumonia Patient was slightly elevated lactate, likely secondary to hypoxia. Patient has responded well to antibiotic therapy and supplemental oxygen. Patient appears to be comfortable at this time. Patient did receive a small fluid bolus, but has not been hypotensive. Okay to leave the intensive care unit from my perspective. 2. Acute hypoxic respiratory insufficiency secondary to left lower lobe pneumonia Patient's chest x-ray shows a left lower lobe infiltrate. Clinical suspicion for decreased mobility leading to atelectasis with complicating pneumonia. This does not appear to be diffuse as would be seen in viral pneumonia. We will continue with empiric antibiotics. Patient may benefit from outpatient pulmonary function test for evaluation of obstructive lung disease. Unclear if steroids are really necessary as an inpatient. 3. Decreased activity secondary to complicated /morbid obesity/hyperlipidemia/hypertension/depression Complicates care, management, recovery and prognosis. Okay to continue with baseline medications from my perspective. Will need to watch blood sugars closely given acute infectious etiology. Inpatient E&M: [id number] Init Hosp L3
[2019-06-06] MEDS: guaiFENesin 1,200 MG Tablet 1200 MG PO ×2 (12:03→22:39)
[2019-06-06] MEDS: Sertraline 100 MG Tablet PO (12:03)
--- NOTE | 2019-06-06 12:52 | CASEMGMT ---
RN CM Assessment Note Presentation: Sepsis, pneumonia Intro role of CM and purpose of RN CM assessment to patient via hospital phone to pt room phone. Demographics, PCP and Pharmacy verified. Pt states she is independent at home. Children are being cared for by pt and family. Asked if pt had concerns re: dc, but pt declined. Asked if pt would like to have resources for mental health due to report of depression. PCP: Dr. Tommy Cardona Specialists: Dr. Jimmie Cortes, endocrinology Preferred [facility]acy[facility] Insurance: [facility] Community Plan Prescription Benefit: yes LNOK : Living Arrangements: Lives independently with her . Pt states no ambulatory DME use, no care needs identified. DME: Pt has blood glucose monitor and supplies. SW: aware of hx of depression and pt declining needing resources at this time. HHC: none Patient DC goals: home DC PLAN: home on discharge. RN CM advised to contact cm for any concerns/needs that may arise. Cooper SANTOS RN ACM
--- NOTE | 2019-06-06 13:48 | PCM.PN.HOSP ---
Patient Problems: Active and Suspected Problems (Last Reviewed 06/06/19 @ 07:[address] Isaías Galdamez MD) Pneumonia (Acute) Hypoxemia (Acute) Severe sepsis (Acute) Severe sepsis (Acute) Reason for Visit: Follow-up on severe sepsis secondary to pneumonia Subjective: Patient was seen and examined. She reports feeling improved. She denied any dysuria or frequency or lower abdominal discomfort. She admits to cough, respiratory symptoms ongoing since her childbirth almost a month ago. She feels improved, still feels fatigued. Remains on oxygen Objective: Physical exam: GEN: Alert, Oriented x3, Cooperative HEENT: Atraumatic, PERRLA, EOMI, Normocephalic Neck: Supple, No JVD, Negative Carotid Bruits, - - Morbidly obese Lungs: No rhonchi, No wheeze, decreased air entry at the lung bases Cardiovascular: Normal S1, Normal S2, No murmurs, Tachycardic Abdomen: Bowel Sounds Present, Soft, Non Tender Extremities: No edema, Capillary Refill Less than 3 Seconds Skin: No rashes, No breakdown Musculoskeletal: No Tenderness to Palpation of Joints or Extremities Neurological: Cranial nerves II-XII grossly intact Psych/Mental Status: Normal Affect, Appropriate Vitals/I&O's: Vital Signs Temp Pulse Resp BP Pulse Ox 98.5 F 100 22 H 139/94 H 96 06/06/19 06:47 06/06/19 06:47 06/06/19 06:47 06/06/19 06:47 06/06/19 09:30 Oxygen Flow Rate (L/min) 2 Oxygen Delivery Method Nasal Cannula Weight: 104.9 kg Body Mass Index (BMI) 40.9 Finger Stick Blood Glucose 248 Intake and Output for Last 24 Hours 06/04/19 06/05/19 06/06/19 23:59 23:59 23:59 Intake Total 1397.5 / 1397.5 Balance 1397.5 / 1397.5 Microbiology Past 72 Hours 06/06/19 04:13 Mucosa - Nasopharyngeal Respiratory Panel (PCR) - Final 06/06/19 03:26 Mucosa - Nose Rapid RSV (DFA) - Final 06/06/19 03:26 Mucosa - Nose Influenza Types A,B Direct FA (BILLY) - Final Laboratory Results 06/06/19 03:10: WBC 9.7, RBC 3.62 L, Hgb 11.6 L, Hct 33.0 L, MCV 91.2, MCH 32.0, MCHC 35.2, RDW Std Deviation 46.4 H, RDW Coeff of Varun 15.4 H, Plt Count 334, MPV 9.8, Immature Gran % (Auto) 2.300 H, Neut % (Auto) 79.5 H, Lymph % (Auto) 12.4 L, [place] % (Auto) 5.3, Eos % (Auto) 0.2, Baso % (Auto) 0.3, Absolute Neuts (auto) 7.7, Absolute Lymphs (auto) 1.20, Nucleated RBC % 0 06/06/19 03:10: PT 13.8, INR 1.1, APTT 40.9 H 06/06/19 03:10: Sodium 140, Potassium 4.0, Chloride 106, Carbon Dioxide 25.0, Anion Gap 9, BUN 9, Creatinine 0.75, Estim Creat Clear Calc 96.50, Est GFR (MDRD) Af Amer 123, Est GFR (MDRD) Non-Af 101, BUN/Creatinine Ratio 12.0, Glucose 178 H, Calcium 9.1, Total Bilirubin 0.40, AST 19, ALT 37, Alkaline Phosphatase 111, Troponin I < 0.015, Total Protein 8.5 H, Albumin 3.3, Globulin 5.2 H, Albumin/Globulin Ratio 0.6 L 06/06/19 03:10: Lactic Acid 2.1 H* 06/06/19 03:50: Urine Color Yellow, Urine Clarity Cloudy, Urine pH 6.5, Ur Specific [place] 1.020, Urine Protein 500 H, Urine Glucose (UA) Normal, Urine Ketones Negative, Urine Occult Blood 250 H, Urine Nitrite Negative, Urine Bilirubin Negative, Urine Urobilinogen 1 H, Ur Leukocyte Esterase 500 H, Urine RBC 25-50 SEEN, Urine WBC 10-25 SEEN, Ur Squamous Epith Cells 10-25 SEEN, Urine Bacteria 1+, Urine Mucus 0 SEEN 06/06/19 07:10: Lactic Acid 1.9 Current Medications Acetaminophen (Tylenol) 650 mg PO Q6H PRN PRN PRN Reason: Pain Score 1-10/Temp > 100.7 F Albuterol Sulfate (Ventolin Hfa (Sp)) 2 puff INHALATION Q2H PRN PRN PRN Reason: sob/wheezing Glucagon () 1 mg IM .X1 PRN PRN Reason: Hypoglycemia Guaifenesin (Mucinex) 1,200 mg PO BID [facility] Last Admin: 06/06/19 12:03 Dose: 1,200 mg Documented by: Sodium Chloride () 1,000 mls @ 75 mls/hr IV .[id number] [facility] Last Infusion: 06/06/19 11:23 Dose: 75 mls/hr Documented by: Ceftriaxone Sodium 2 gm/ (Sodium Chloride) 50 mls @ 100 mls/hr IV Q24H [facility] Stop: 06/13/19 09:31 Last Infusion: 06/06/19 11:23 Dose: Infused Documented by: Azithromycin 500 mg/ Dextrose 255 mls @ 250 mls/hr IV Q24 [facility] Stop: 06/11/19 10:01 Last Admin: 06/06/19 12:03 Dose: 250 mls/hr Documented by: Sodium Chloride () 250 mls @ 15 mls/hr IV .[id number] PRN PRN Reason: Saline Flush Sodium Chloride () 250 mls @ 15 mls/hr IV .[id number] PRN PRN Reason: Additional IVPB Infusion Dextrose (Dextrose 10%-Water) 250 mls @ 999 mls/hr IV .Q16M PRN; Protocol PRN Reason: HYPOGLYCEMIA Insulin Human Lispro (Humalog Kwikpen (Bkc)) 0 unit SC ACHS [facility]; Protocol Last Admin: 06/06/19 11:07 Dose: Not Given Documented by: Nifedipine (Procardia Xl) 30 mg PO DAILY [facility] Ondansetron HCl (Zofran) 4 mg IV Q8H PRN PRN PRN Reason: NAUSEA/VOMITING Sertraline HCl (Zoloft) 100 mg PO DAILY [facility] Last Admin: 06/06/19 12:03 Dose: 100 mg Documented by: Sodium Chloride () 10 - 40 ml IV UD PRN PRN Reason: SALINE FLUSH Medical Necessity - Tobacco Use Smoking Status: Never smoker Assessment/Plan All Active Problems (Last Reviewed 06/06/19 @ 07:[address] Isaías Galdamez MD) Pneumonia (Acute) Hypoxemia (Acute) Severe sepsis (Acute) Severe sepsis (Acute) History of pancreatitis (Resolved) KIM (acute kidney injury) (Resolved) Abdominal pain (Resolved) Acute pancreatitis (Resolved) Cholelithiasis (Resolved) Cholelithiasis and cholecystitis with obstruction (Resolved) History of pre-eclampsia (Resolved) Hypertension affecting in second trimester (Resolved) Migraine headache (Resolved) RUQ abdominal pain (Resolved) Recurrent acute pancreatitis (Resolved) Severe preeclampsia (Resolved) Supervision of high risk in second trimester (Resolved) Type 2 diabetes mellitus (Resolved) 1. Severe sepsis secondary to community-acquired pneumonia, Acute cystitis ruled out with negative symptoms No more fevers, WBC count is 9.7, RSV, influenza, respiratory panel negative Continue on azithromycin and ceftriaxone(DAY 2) Blood cultures are pending 2. DM, unclear type, BS are stable, Will continue blood glucose checks and ISS 3. Hypertension, BP is controlled, will continue on Procardia 4. Depression, on Zoloft 5. DVT PPx - low risk; early ambulation recommended Inpatient E&M: 53723 Subs Hosp L2
[2019-06-06 16:55] LABS: Bedside Glucose 86 mg/dL (70-110)
[2019-06-06] MEDS: 0.9% Saline Lock 10 ML Syringe IV (22:38)
[2019-06-06] MEDS: Acetaminophen 325 MG Tablet 650 MG PO (22:42)
[2019-06-06 22:46] LABS: Bedside Glucose 99 mg/dL (70-110)
[2019-06-07 03:13] VITALS: PULSE 70
[2019-06-07 03:33] VITALS: BP 109/58; PULSE 69; RESP 18; TEMP 37.1; O2SAT 94
[2019-06-07] MEDS: Acetaminophen 325 MG Tablet 650 MG PO (06:37)
[2019-06-07 06:44] VITALS: PULSE 71
[2019-06-07 06:50] LABS: Absolute Lymphocyte Count 1.66 X10^3/uL (0.83-4.51); Absolute Neutrophil Count 5.1 X10^3/uL (2.0-7.7); Basophil# 0.03 X10^3/uL; Basophil% 0.4 % (0-1); Eosinophil# 0.24 X10^3/uL; Eosinophils% 3.1 % (0-5); Hematocrit 35.4 % (37-47); Hemoglobin 11.1 g/dL (12.0-15.0); Lymphocyte # 1.66 X10^3/ul (4.0); Lymphocyte % 21.6 % (19-41); Mean Corp Hgb Conc 31.4 g/dL (32-36); Mean Corpuscular Hgb 27.9 pg (27.0-32.0); Mean Corpuscular Volume 88.9 fL (81-99); Mean Platelet Vol. 9.5 fl (6.2-12.0); Monocyte# 0.45 X10^3/uL; Monocyte% 5.9 % (0-10); NRBC Flagged by Analyzer 0 % (0-5); Neutrophil # 5.13 X10^3/uL (2.7-7.7); Neutrophil % 66.9 % (47-70); Platelet Count 298 K/mm3 (150-450); RBC Distribution Width CV 15.2 % (11.6-14.6); RBC Distribution Width SD 48.8 fl (35.1-43.9); Red Blood Count 3.98 M/mm3 (4.2-5.4); White Blood Count 7.7 K/mm3 (4.4-11.0)
[2019-06-07 06:51] LABS: Bedside Glucose 110 mg/dL (70-110)
[2019-06-07 07:17] LABS: Anion Gap 7 (5-15); BUN 12 mg/dL (7-18); BUN/Creat Ratio 14.5 RATIO (10-20); Calcium,Total 8.6 mg/dL (8.5-10.1); Chloride 104 mmol/L (98-107); Creatinine, Serum 0.83 mg/dL (0.55-1.02); EST Glomerular Filtration Rate 90 mL/min (>60); Est Glom Filt Rate - Afr Amer 109 mL/min (>60); Glucose 110 mg/dL (74-106); Potassium 4.3 mmol/L (3.5-5.1); Sodium Level 137 mmol/L (136-145)
--- NOTE | 2019-06-07 07:24 | PCM.DC ---
- Discharge Diagnoses Current Active Problems: Current Active and Chronic Problems (Last Reviewed 06/06/19 @ 07:[address] Isaías Galdamez MD) Pneumonia (Acute) Hypoxemia (Acute) Severe sepsis (Acute) Severe sepsis (Acute) Reason(s) for Visit for Discharge Instructions: Shortness of breath You will use the following diet at home:: Cardiac Your food should be the consistency of: Regular Your liquids should be the consistency of: Regular/Thin Discharge Activity: Return to Normal Activity Additional Instructions: Complete antibiotics. Continue to keep yourself hydrated. Follow-up with 1-2 weeks Allergies/Adverse Reactions: Allergies Gadolinium-MRI Contrast Medium [DYE] Allergy (Severe, Verified 06/06/19 02:51) KIDNEY FAILURE kidney failure Medications to take at Discharge vitamin#30 30 mg iron-10 mg iron-folic acid 1 mg-omg3 capsule 1 cap PO DAILY cap 11/19/18 sertraline 100 mg tablet 100 mg PO DAILY 01/06/19 Nifedipine [Procardia Xl] 30 mg PO DAILY #30 tab.er.24 05/15/19 Acetaminophen [Tylenol Tablet] 650 mg PO Q6H PRN PRN tab 06/07/19 Amox/Clavulanate Tablet [Augmentin Tablet] 875 mg PO Q12H 5 Days #10 tab 06/07/19 Guaifenesin [Mucinex] 1,200 mg PO BID 7 Days #14 tab 06/07/19 The following prescriptions were given: Amox/Clavulanate Tablet [Augmentin Tablet] 875 mg PO Q12H 5 Days #10 tab Transmission Status: Received by [id number] Guaifenesin [Mucinex] 1,200 mg PO BID 7 Days #14 tab Transmission Status: Received by [id number] Primary Care Physician: Bryant Cardona MD [Primary Care Provider] - Please follow up with your Primary Care Physician in: within 1-2 weeks Test Results: Test results from this visit will be discussed in further detail at your follow-up appointment, if applicable. Proposed Discharge Date: 06/07/19
[2019-06-07] MEDS: 0.9% Saline Lock 10 ML Syringe IV (08:21)
--- NOTE | 2019-06-07 08:33 | PN_ITS ---
Patient Problems: Active and Suspected Problems (Last Reviewed 06/06/19 @ 07:[address] Isaías Galdamez MD) Pneumonia (Acute) Hypoxemia (Acute) Severe sepsis (Acute) Severe sepsis (Acute) Subjective: Patient did well overnight. Patient reports significant improvement in coughing and production. Patient states sputum is becoming more clear. Patient denies any chest pain. Patient denies any nausea or vomiting. - Physical Exam Vitals/I&O's: Vital Signs Temp Pulse Resp BP Pulse Ox 37.1 C 71 18 109/58 L 94 06/07/19 03:33 06/07/19 06:44 06/07/19 03:33 06/07/19 03:33 06/07/19 03:33 Oxygen Flow Rate (L/min) 3 Oxygen Delivery Method Room Air Weight: 103.1 kg Body Mass Index (BMI) 40.9 Finger Stick Blood Glucose 248 Intake and Output for Last 24 Hours 06/05/19 06/06/19 06/07/19 23:59 23:59 23:59 Intake Total 3358.75 / 3358.75 100 / 100 Output Total 1300 / 1300 Balance 2058.75 / 2058.75 100 / 100 General: Alert, Oriented x3, Cooperative, No apparent distress, Well developed, Well nourished, - - Morbidly obese. Speaking in full sentences. HEENT: Atraumatic, PERRLA, EOMI, Normocephalic, - - No scleral icterus or injection noted Oral: Moist Mucosa, No Gingival or Mucosal Lesions/ Ulcerations Neck: Supple, No JVD, No Nodes, Trachea Midline Lungs: No wheeze, No rales, Diminished, Rhonchi - Improved with cough at the left base Cardiovascular: Regular rate, Regular Rhythm, Normal S1, Normal S2, No murmurs, No rub noted, No Gallop Abdomen: Bowel Sounds Present, Soft, Non Tender, Non-Distended, Obese Extremities: No clubbing, No cyanosis, Capillary Refill Less than 3 Seconds, Juanjose ma - Trace lower extremity Skin: No rashes, No breakdown Musculoskeletal: No Tenderness to Palpation of Joints or Extremities Lymphatic: No Cervical, Supraclavicular, or Inguinal Adenopathy Neurological: Cranial nerves II-XII grossly intact, Neuro grossly intact, Motor Exam 5/5 strength throughout Psych/Mental Status: Alert and oriented to time, place, person, mood and affect Microbiology Past 72 Hours 06/06/19 13:00 Urine, Random Streptococcus pneumoniae Antigen (M - Final 06/06/19 13:00 Urine, Random Legionella Antigen - Final 06/06/19 04:13 Mucosa - Nasopharyngeal Respiratory Panel (PCR) - Final 06/06/19 03:26 Mucosa - Nose Rapid RSV (DFA) - Final 06/06/19 03:26 Mucosa - Nose Influenza Types A,B Direct FA (BILLY) - Final Laboratory Results 06/06/19 16:48: POC Glucose 86 06/06/19 22:38: POC Glucose 99 06/07/19 06:20: Sodium 137, Potassium 4.3, Chloride 104, Carbon Dioxide 26.0, Anion Gap 7, BUN 12, Creatinine 0.83, Estim Creat Clear Calc 87.20, Est GFR (MDRD) Af Amer 109, Est GFR (MDRD) Non-Af 90, BUN/Creatinine Ratio 14.5, Glucose 110 H, Calcium 8.6 06/07/19 06:20: WBC 7.7, RBC 3.98 L, Hgb 11.1 L, Hct 35.4 L, MCV 88.9, MCH 27.9, MCHC 31.4 L D, RDW Std Deviation 48.8 H, RDW Coeff of Varun 15.2 H, Plt Count 298, MPV 9.5, Immature Gran % (Auto) 2.100 H, Neut % (Auto) 66.9, Lymph % (Auto) 21.6, [place] % (Auto) 5.9, Eos % (Auto) 3.1, Baso % (Auto) 0.4, Absolute Neuts (auto) 5.1, Absolute Lymphs (auto) 1.66, Nucleated RBC % 0 06/07/19 06:35: POC Glucose 110 Current Medications Acetaminophen (Tylenol) 650 mg PO Q6H PRN PRN PRN Reason: Pain Score 1-10/Temp > 100.7 F Last Admin: 06/07/19 06:37 Dose: 650 mg Documented by: Albuterol Sulfate (Ventolin Hfa (Sp)) 2 puff INHALATION Q2H PRN PRN PRN Reason: sob/wheezing Glucagon () 1 mg IM .X1 PRN PRN Reason: Hypoglycemia Guaifenesin (Mucinex) 1,200 mg PO BID [facility] Last Admin: 06/06/19 22:39 Dose: 1,200 mg Documented by: Ceftriaxone Sodium 2 gm/ (Sodium Chloride) 50 mls @ 100 mls/hr IV Q24H [facility] Stop: 06/13/19 09:31 Last Admin: 06/07/19 08:20 Dose: 100 mls/hr Documented by: Azithromycin 500 mg/ Dextrose 255 mls @ 250 mls/hr IV Q24 [facility] Stop: 06/11/19 10:01 Last Infusion: 06/06/19 13:05 Dose: Infused Documented by: Sodium Chloride () 250 mls @ 15 mls/hr IV .[id number] PRN PRN Reason: Saline Flush Sodium Chloride () 250 mls @ 15 mls/hr IV .[id number] PRN PRN Reason: Additional IVPB Infusion Dextrose (Dextrose 10%-Water) 250 mls @ 999 mls/hr IV .Q16M PRN; Protocol PRN Reason: HYPOGLYCEMIA Insulin Human Lispro (Humalog Kwikpen (Bkc)) 0 unit SC ACHS [facility]; Protocol Last Admin: 06/07/19 06:35 Dose: Not Given Documented by: Nifedipine (Procardia Xl) 30 mg PO DAILY [facility] Last Admin: 06/06/19 15:53 Dose: Not Given Documented by: Ondansetron HCl (Zofran) 4 mg IV Q8H PRN PRN PRN Reason: NAUSEA/VOMITING Sertraline HCl (Zoloft) 100 mg PO DAILY [facility] Last Admin: 06/06/19 12:03 Dose: 100 mg Documented by: Sodium Chloride () 10 - 40 ml IV UD PRN PRN Reason: SALINE FLUSH Last Admin: 06/07/19 08:21 Dose: 10 ml Documented by: Medical Necessity - Tobacco Use Smoking Status: Never smoker Assessment/Plan All Active Problems (Last Reviewed 06/06/19 @ 07:[address] Isaías Galdamez MD) Pneumonia (Acute) Hypoxemia (Acute) Severe sepsis (Acute) Severe sepsis (Acute) History of pancreatitis (Resolved) KIM (acute kidney injury) (Resolved) Abdominal pain (Resolved) Acute pancreatitis (Resolved) Cholelithiasis (Resolved) Cholelithiasis and cholecystitis with obstruction (Resolved) History of pre-eclampsia (Resolved) Hypertension affecting in second trimester (Resolved) Migraine headache (Resolved) RUQ abdominal pain (Resolved) Recurrent acute pancreatitis (Resolved) Severe preeclampsia (Resolved) Supervision of high risk in second trimester (Resolved) Type 2 diabetes mellitus (Resolved) RECOMMENDATIONS: 1. Okay to transition to p.o. antibiotics 2. Aggressive pulmonary toileting 3. Walking oximetry prior to discharge. Okay to discharge if no supplemental oxygen is necessary 4. Consider outpatient PFT and sleep study only if requested by patient IMPRESSIONS: 1. Severe sepsis secondary to left lower lobe pneumonia Patient was slightly elevated lactate, likely secondary to hypoxia. Patient has responded well to antibiotic therapy. Patient appears to be comfortable at this time. Patient did receive a small fluid bolus, but has not been hypotensive. 2. Acute hypoxic respiratory insufficiency secondary to left lower lobe pneumonia Patient's chest x-ray shows a left lower lobe infiltrate. Clinical suspicion for decreased mobility leading to atelectasis with complicating pneumonia. Likely okay to transition to p.o. antibiotics. Patient may benefit from outpatient pulmonary function test for evaluation of obstructive lung disease and PSG for sleep apnea, but defer to patient for outpatient follow-up. 3. Decreased activity secondary to complicated /morbid obesity/hyperlipidemia/hypertension/depression Complicates care, management, recovery and prognosis. Okay to continue with baseline medications from my perspective. Will need to watch blood sugars closely given acute infectious etiology. Inpatient E&M: [id number] [facility] Hosp L2
[2019-06-07 08:34] VITALS: O2SAT 93
--- NOTE | 2019-06-07 08:40 | DS.PCM_ITS ---
Discharge Date and Diagnosis Date of Admission: 06/06/19 Date of Discharge: 06/07/19 - Primary Discharge Diagnosis Active and Suspected Problems (Last Reviewed 06/06/19 @ 07:[address] Isaías Galdamez MD) Severe sepsis secondary to pneumonia Acute hypoxic respiratory insufficiency secondary to pneumonia - Secondary Discharge Diagnosis Chronic Problems (Last Reviewed 06/06/19 @ 07:[address] Isaías Galdamez MD) Hypertension (Chronic) History of severe pre-eclampsia (Chronic) nl baseline labs Diabetes in (Chronic) sees endocrinology. optho consult. Seeing Dr. Cortes. Growth US at 28 wk, weekly bpps and weekly nsts after 32 weeks deliver at 38 Depression (Chronic) zoloft, encourage counseling. Hospital Course and Treatment Imaging Results: Clinical Impression(s) from Imaging Studies Chest X-Ray 06/06/19 03:04 IMPRESSION: Infiltrate in the left lower lobe possible lingula, new since previous exam. Electronically Signed: Ilana Adkins MD at 4:27 EDT , Service support , None Operations: None Procedures: None Summary of Care Provided: The patient is a 23 year old F with past medical history of hypertension, type II DM who is 4 weeks presented with a 3 and half week history of progressive worsening shortness of breath, worse with exertion. This is associated cough and fever. Patient had recently seen her primary care doctor was prescribed a steroid but was told to take it when her symptoms progress. Patient admitted to PND, nausea, headache, and dizziness. Temperature at home was 104F. She had sore throat, runny nose, some chest tightness, generalized muscle ache. He denied any contact with any person with cold with 19. Denied any travel history. Admitting chest x-ray showed an infiltrate in the left lower lobe. Lactic acid was 2.1, CBCD and BMP were otherwise unremarkable. Patient was admitted to the ICU, managed on IV fluids, breathing treatment, IV antibiotics. There were no fevers during this hospital stay. She continued to improve, was oxygen the next day. She was discharged on Augmentin to complete a 1 week treatment. Patient did not meet testing requirements for COVID-19 per hospital and [facility] guidelines. Subjective: On the day of discharge, patient was seen and examined. She feels improved. Denies any fever chills or shortness of breath. Encouraged to use incentive spirometer. Objective: Physical exam: GEN: Alert, Oriented x3, Cooperative HEENT: Atraumatic, PERRLA, EOMI, Normocephalic Neck: Supple, No JVD, Negative Carotid Bruits, - - Morbidly obese Lungs: No rhonchi, No wheeze, decreased air entry at the lung bases Cardiovascular: Normal S1, Normal S2, No murmurs, Tachycardic Abdomen: Bowel Sounds Present, Soft, Non Tender Extremities: No edema, Capillary Refill Less than 3 Seconds Skin: No rashes, No breakdown Musculoskeletal: No Tenderness to Palpation of Joints or Extremities Neurological: Cranial nerves II-XII grossly intact Psych/Mental Status: Normal Affect, Appropriate - Physical Exam Vitals/I&O's: Vital Signs Temp Pulse Resp BP Pulse Ox 98.7 F 71 18 109/58 L 94 06/07/19 03:33 06/07/19 06:44 06/07/19 03:33 06/07/19 03:33 06/07/19 03:33 Oxygen Flow Rate (L/min) 3 Oxygen Delivery Method Room Air Weight: 103.1 kg Body Mass Index (BMI) 40.9 Finger Stick Blood Glucose 248 Intake and Output for Last 24 Hours 06/05/19 06/06/19 06/07/19 23:59 23:59 23:59 Intake Total 3358.75 / 3358.75 100 / 100 Output Total 1300 / 1300 Balance 2058.75 / 2058.75 100 / 100 Microbiology Past 72 Hours 06/06/19 13:00 Urine, Random Streptococcus pneumoniae Antigen (M - Final 06/06/19 13:00 Urine, Random Legionella Antigen - Final 06/06/19 04:13 Mucosa - Nasopharyngeal Respiratory Panel (PCR) - Final 06/06/19 03:26 Mucosa - Nose Rapid RSV (DFA) - Final 06/06/19 03:26 Mucosa - Nose Influenza Types A,B Direct FA (BILLY) - Final Laboratory Results 06/06/19 16:48: POC Glucose 86 06/06/19 22:38: POC Glucose 99 06/07/19 06:20: Sodium 137, Potassium 4.3, Chloride 104, Carbon Dioxide 26.0, Anion Gap 7, BUN 12, Creatinine 0.83, Estim Creat Clear Calc 87.20, Est GFR (MDRD) Af Amer 109, Est GFR (MDRD) Non-Af 90, BUN/Creatinine Ratio 14.5, Glucose 110 H, Calcium 8.6 06/07/19 06:20: WBC 7.7, RBC 3.98 L, Hgb 11.1 L, Hct 35.4 L, MCV 88.9, MCH 27.9, MCHC 31.4 L D, RDW Std Deviation 48.8 H, RDW Coeff of Varun 15.2 H, Plt Count 298, MPV 9.5, Immature Gran % (Auto) 2.100 H, Neut % (Auto) 66.9, Lymph % (Auto) 21.6, [place] % (Auto) 5.9, Eos % (Auto) 3.1, Baso % (Auto) 0.4, Absolute Neuts (auto) 5.1, Absolute Lymphs (auto) 1.66, Nucleated RBC % 0 06/07/19 06:35: POC Glucose 110 Current Medications Acetaminophen (Tylenol) 650 mg PO Q6H PRN PRN PRN Reason: Pain Score 1-10/Temp > 100.7 F Last Admin: 06/07/19 06:37 Dose: 650 mg Documented by: Albuterol Sulfate (Ventolin Hfa (Sp)) 2 puff INHALATION Q2H PRN PRN PRN Reason: sob/wheezing Glucagon () 1 mg IM .X1 PRN PRN Reason: Hypoglycemia Guaifenesin (Mucinex) 1,200 mg PO BID [facility] Last Admin: 06/06/19 22:39 Dose: 1,200 mg Documented by: Ceftriaxone Sodium 2 gm/ (Sodium Chloride) 50 mls @ 100 mls/hr IV Q24H [facility] Stop: 06/13/19 09:31 Last Admin: 06/07/19 08:20 Dose: 100 mls/hr Documented by: Azithromycin 500 mg/ Dextrose 255 mls @ 250 mls/hr IV Q24 [facility] Stop: 06/11/19 10:01 Last Infusion: 06/06/19 13:05 Dose: Infused Documented by: Sodium Chloride () 250 mls @ 15 mls/hr IV .[id number] PRN PRN Reason: Saline Flush Sodium Chloride () 250 mls @ 15 mls/hr IV .[id number] PRN PRN Reason: Additional IVPB Infusion Dextrose (Dextrose 10%-Water) 250 mls @ 999 mls/hr IV .Q16M [facility]; Protocol PRN Reason: HYPOGLYCEMIA Insulin Human Lispro (Humalog Kwikpen (Bkc)) 0 unit SC ACHS [facility]; Protocol Last Admin: 06/07/19 06:35 Dose: Not Given Documented by: Nifedipine (Procardia Xl) 30 mg PO DAILY [facility] Last Admin: 06/06/19 15:53 Dose: Not Given Documented by: Ondansetron HCl (Zofran) 4 mg IV Q8H PRN PRN PRN Reason: NAUSEA/VOMITING Sertraline HCl (Zoloft) 100 mg PO DAILY [facility] Last Admin: 06/06/19 12:03 Dose: 100 mg Documented by: Sodium Chloride () 10 - 40 ml IV UD PRN PRN Reason: SALINE FLUSH Last Admin: 06/07/19 08:21 Dose: 10 ml Documented by: Discharge Diet: No Restrictions Discharge Activity: Return to Normal Activity Home Medications: Medications to take at Discharge vitamin#30 30 mg iron-10 mg iron-folic acid 1 mg-omg3 capsule 1 cap PO DAILY cap 11/19/18 sertraline 100 mg tablet 100 mg PO DAILY 01/06/19 Nifedipine [Procardia Xl] 30 mg PO DAILY #30 tab.er.24 05/15/19 Acetaminophen [Tylenol Tablet] 650 mg PO Q6H PRN PRN tab 06/07/19 Amox/Clavulanate Tablet [Augmentin Tablet] 875 mg PO Q12H 5 Days #10 tab 06/07/19 Guaifenesin [Mucinex] 1,200 mg PO BID 7 Days #14 tab 06/07/19 Following Prescrptions Were Given to Patient: Amox/Clavulanate Tablet [Augmentin Tablet] 875 mg PO Q12H 5 Days #10 tab [facility] Status[facility] Guaifenesin [Mucinex] 1,200 mg PO BID 7 Days #14 tab Transmission Status: [facility] Primary Care Physician: Bryant Cardona MD [Primary Care Provider] - Please follow up with your Primary Care Physician in: within 1-2 weeks Disposition: Home Minutes spent on discharge:: 40 Patient Condition:: Stable Medical Necessity - Tobacco Use Smoking Status: Never smoker Tobacco Use: Non-smoker Meaningful Use Info Meaningful Use Diagnoses (Choose all that apply): None applicable Inpatient E&M: 40789 Disch Hosp
[2019-06-07] MEDS: Ondansetron 4 MG/2 ML Vial IV (08:58)
[2019-06-07 09:04] VITALS: BP 105/59; PULSE 74; RESP 18; TEMP 36.8; O2SAT 93
[2019-06-07] MEDS: guaiFENesin 1,200 MG Tablet 1200 MG PO (09:12)
[2019-06-07 09:19] VITALS: O2SAT 90; O2SAT 93
[2019-06-07] MEDS: Sertraline 100 MG Tablet PO (10:34)
[2019-06-07 11:15] LABS: Bedside Glucose 137 mg/dL (70-110)
--- NOTE | 2019-06-09 16:04 | CASEMGMT ---
MONICA KELLER Discharge F/U Phone Call LACE: 13 Strata:3 Discharge date: 06/07/2019 Call date: 06/09/2019 Call time: [id number] Duration: 2minutes Admission dx: Severe Sepsis Pt states is doing a 'little better' since discharge. Pt states no questions regarding d/c instructions/medications at this time. Pt states has not made f/u appts yet at this time but plans to. Pt states no suggestions for [facility] at this time. Pt voices no further questions/concerns/needs at this time. [place] MONICA KELLER
== END 2019-06-07 11:31 | disposition home or self-care (01) | DRG 561 ==
LOC: ED 05:11 → ICU 07:09 → PCU 19:06
PROVIDERS: Admitting Provider Hospitalist; Emergency Provider Emergency Medicine; PCP Family Medicine; Visit Provider Internal Medicine
DX: O99.53 Diseases of the respiratory system complicating the puerperium (principal); J18.9 Pneumonia, unspecified organism; R09.02 Hypoxemia; R06.89 Other abnormalities of breathing; O99.345 Other mental disorders complicating the puerperium; F32.9 Major depressive disorder, single episode, unspecified; O16.5 Unspecified maternal hypertension, complicating the puerperium
CPT/HCPCS: 36415; 71045; 80048; 80053; 81001; 82962; 83605; 84484; 85025; 85610; 85730; 87040; 87070; 87077; 87086; 87088; 87186; 87205; 87449; 87633; 87804; 87807; 93005; 94640; 94667; 99251; 99284; J7030; J7040; A4216; G0463; J0696; J2405

== ENCOUNTER 2019-06-17 20:08 | Emergency (ER) | payer MEDICAID, SELFPAY ==
[2019-06-06 07:50] VITALS: BMI 40.9
[2019-06-17 20:08] VITALS: BP 160/100; PULSE 84; RESP 16; TEMP 36.8; O2SAT 96; BMI 42.1
[2019-06-17 20:43] LABS: Absolute Lymphocyte Count 2.65 X10^3/uL (0.83-4.51); Absolute Neutrophil Count 5.3 X10^3/uL (2.0-7.7); Basophil# 0.04 X10^3/uL; Basophil% 0.5 % (0-1); Eosinophil# 0.17 X10^3/uL; Hematocrit 38.1 % (37-47); Hemoglobin 13.9 g/dL (12.0-15.0); Lymphocyte # 2.65 X10^3/ul (4.0); Lymphocyte % 31.2 % (19-41); Mean Corp Hgb Conc 36.5 g/dL (32-36); Mean Corpuscular Hgb 32.6 pg (27.0-32.0); Mean Corpuscular Volume 89.2 fL (81-99); Mean Platelet Vol. 10.1 fl (6.2-12.0); Monocyte# 0.29 X10^3/uL; Monocyte% 3.4 % (0-10); NRBC Flagged by Analyzer 0 % (0-5); Neutrophil # 5.28 X10^3/uL (2.7-7.7); Neutrophil % 62.2 % (47-70); POSITIVE MORPHOLOGY YES; Platelet Count 260 K/mm3 (150-450); RBC Distribution Width CV 15.9 % (11.6-14.6); RBC Distribution Width SD 50.2 fl (35.1-43.9); Red Blood Count 4.27 M/mm3 (4.2-5.4); White Blood Count 8.5 K/mm3 (4.4-11.0)
--- NOTE | 2019-06-17 20:45 | ED.VIS.GEN ---
History of Present Illness Chief Complaint: Abd Pain Informant: Patient Onset: Today, Hours Context: Sudden Onset Timing: Continuous Quality: Pain Location: Predominately left side also right Current Severity: Mild Maximum Severity: Moderate Worsened by: Nothing Relieved by: Nothing Associated Symptoms: Vomiting x1 Narrative: Patient is a 23-year-old female status post cholecystectomy. She had gallstone pancreatitis. She had pancreatitis approximately 2 months after her gallbladder was removed as well. She denies drinking. She denies fever, chills night sweats. She denies ocular, visual auditory symptoms. She denies upper respiratory symptoms. She denies coffee-ground emesis or blood in her emesis. Denies black or maroon stool. She denies urinary symptoms. She denies myalgias arthralgias. Prior similar symptoms: Yes - Pancreatitis Recent Illness/Hospitalization: No - Last admission for pancreatitis August 2017 - Past Medical History (1) Depression Status: Chronic Comment: cassia, encourage counseling. (2) History of severe pre-eclampsia Status: Chronic Comment: nl baseline labs (3) Hypertension Status: Chronic (4) History of pancreatitis Status: Resolved Comment: monitor PRN Past Medical History - Allergies and Home Meds Allergies/Adverse Reactions: Allergies Gadolinium-MRI Contrast Medium [DYE] Allergy (Severe, Verified 06/17/19 20:11) KIDNEY FAILURE kidney failure Primary Care Physician: Bryant Cardona MD [Primary Care Provider] - Prior records reviewed: Yes - Delivery 5 weeks ago, severe preeclampsia Surgical History: cholecystectomy Lives: With Family Smoking Status: Never smoker Alcohol: None Drugs: None - Family History Maternal Family History: Family History (Last Reviewed 06/06/19 @ 07:[address] Isaías Galdamez MD) Mother Diabetes Grandmother Diabetes Grandfather Diabetes Father hyperlipidemia Unknown Depression Hypertension Family History: Reports: Diabetes Paternal Family History: Family History (Last Reviewed 06/06/19 @ 07:[address] Isaías Galdamez MD) Mother Diabetes Grandmother Diabetes Grandfather Diabetes Father hyperlipidemia Unknown Depression Hypertension Family History: Reports: Diabetes Review of Systems General: Denies: Chills, Fever, Sweats Eyes: Denies: Visual changes - bilaterally, Blurred Vision - bilaterally ENT: Denies: Rhinorrhea, Sore throat Cardiovascular: Denies: Chest pain, Palpitations Respiratory: Denies: Dyspnea, Cough, Dyspnea on exertion Gastrointestinal: Reports: Abdominal pain, Nausea, Vomiting. Denies: Diarrhea, Constipation, Melena, Hematochezia, -, - Genitourinary: Denies: Dysuria, Hematuria, Frequency Musculoskeletal: Denies: Myalgias, Arthralgias, Neck pain, Back pain, Swelling, Extremity Pain, -, - Skin: Denies: Rash, Wounds Neurological: Denies: Headache, Weakness, Numbness Psych: Reports: Depression Hematologic: Denies: Easy bruising, Easy bleeding Physical Exam Vital Signs/Narrative: Vital Signs Temp Pulse Resp BP Pulse Ox 06/17/19 20:08 98.2 F 84 16 160/100 H 96 Inital Vital Signs reviewed: Yes General: Well nourished, Well developed, Obese, No Acute Distress Head: Normocephalic, Atraumatic Eyes: Perrl, EOMI. Negative for: Pale conjunctiva, Scleral icterus ENT: Moist mucous membranes, No rhinorrhea Neck: Supple, Nontender, No lymphadenopathy, No JVD Cardiovascular: Regular rate, Regular rhythm, No murmurs, Normal S1, Normal S2 Respiratory: No distress, CTA bilaterally, Chest nontender Abdomen: Soft, Nondistended, Normal bowel sounds, No masses, Tender - Numbness left side with no guarding or rebound tenderness. Negative for: Guarding, Rebound tenderness Rectal: Deferred Back: Nontender, Normal Inspection. Negative for: CVA tenderness Extremities: Nontender, No edema Skin: Normal color, No rash, No Trauma. Negative for: Cyanosis, Diaphoresis, Jaundice Neurological: Alert, Oriented x3, Cranial nerves II-XII grossly intact, Normal Strength, Normal Sensation Psychological: Normal affect, Normal Mood Diagnostic/Tx/Re-eval Laboratory Results 06/17/19 06/17/19 20:20 20:20 WBC 8.5 RBC 4.27 Hgb 13.9 Hct 38.1 MCV 89.2 MCH 32.6 H MCHC 36.5 H RDW Std Deviation 50.2 H RDW Coeff of Varun 15.9 H Plt Count 260 MPV 10.1 Immature Gran % (Auto) 0.700 Neut % (Auto) 62.2 Lymph % (Auto) 31.2 Bledsoe % (Auto) 3.4 Eos % (Auto) 2.0 Baso % (Auto) 0.5 Absolute Neuts (auto) 5.3 Absolute Lymphs (auto) 2.65 Nucleated RBC % 0 Differential Comment SCANNED Sodium 135 L Potassium 4.0 Chloride 102 Carbon Dioxide 20.0 L Anion Gap 13 BUN 12 Creatinine 0.66 Estim Creat Clear Calc 109.66 Est GFR (MDRD) Af Amer 140 Est GFR (MDRD) Non-Af 116 BUN/Creatinine Ratio 18.0 Glucose 249 H Calcium 8.3 L Total Bilirubin 0.30 AST < 3 L ALT < 6 L Alkaline Phosphatase 89 Total Protein 7.9 Albumin 3.5 Globulin 4.4 H Albumin/Globulin Ratio 0.8 L Lipase 203 Patient laboratory work-up is unremarkable. Lipase is normal. Patient was informed the cause of her abdominal pain is unknown. Fact that it is migratory from left to right would not support diagnosis of pancreatitis. - Medical Decision Making With history of pancreatitis will obtain hepatic, lipase and CBC. IV was established and she was treated with Zofran for her emesis. Patient's pain is mild at this time and reason parenteral analgesics were not given. ED Disposition - Plan for ED Patient: Disposition: Home or Assisted Living Diagnosis: Acute bilateral upper abdominal pain Instructions: ED Abdominal Pain Unkn Cause Fem Referrals: Bryant Cardona MD [Primary Care Provider] - 1-2 Days if not improving
[2019-06-17] MEDS: 0.9% Normal Saline 1,000 ML 250 ML IV (20:46)
[2019-06-17] MEDS: Ondansetron 4 MG/2 ML Vial IV (20:46)
[2019-06-17 20:48] LABS: Differential Indicated SCAN CRITERIA MET
[2019-06-17 21:13] LABS: Differential Comment SCANNED
[2019-06-17 21:46] LABS: ALB/GLOB Ratio 0.8 RATIO (0.9-2.4); Albumin, Serum 3.5 g/dL (3.2-5.0); Alkaline Phosphatase 89 U/L (45-117); Anion Gap 13 (5-15); BUN 12 mg/dL (7-18); Calcium,Total 8.3 mg/dL (8.5-10.1); Chloride 102 mmol/L (98-107); Creatinine, Serum 0.66 mg/dL (0.55-1.02); EST Glomerular Filtration Rate 116 mL/min (>60); Est Glom Filt Rate - Afr Amer 140 mL/min (>60); Estimated Creatinine Clearance 109.66 ml/min; Globulin 4.4 g/dL (2.2-4.2); Glucose 249 mg/dL (74-106); Lipase 203 U/L (73-393); Protein, Total 7.9 g/dL (6.4-8.2); Sodium Level 135 mmol/L (136-145)
[2019-06-17 22:08] VITALS: BP 133/86; PULSE 75; RESP 17; O2SAT 95
[2019-06-17 22:22] LABS: AST(SGOT) 101 U/L (15-37); Alanine Aminotransfer ALT/SGPT 82 U/L (13-56)
== END 2019-06-17 22:09 | disposition home or self-care (01) ==
PROVIDERS: Emergency Provider Emergency Medicine; PCP Family Medicine
DX: R10.11 Right upper quadrant pain (principal); R10.12 Left upper quadrant pain; F32.9 Major depressive disorder, single episode, unspecified; I10 Essential (primary) hypertension; E66.9 Obesity, unspecified; Z79.899 Other long term (current) drug therapy
CPT/HCPCS: 80053; 83690; 85025; 96361; 96374; 99283; J7030; A4216; J2405

== ENCOUNTER 2019-06-22 12:17 | Emergency (ER) | payer MEDICAID, SELFPAY ==
[2019-06-22 12:17] VITALS: BP 138/84; PULSE 89; RESP 16; TEMP 36.7; O2SAT 95; BMI 42.5
--- NOTE | 2019-06-22 12:33 | ED.VIS.GI ---
History of Present Illness Chief Complaint: Abd Pain Informant: Patient - Abdominal Pain/Flank Pain Onset: Weeks - 1-2 Timing: Intermittent Quality: Dull Location: Diffuse - across mid-abd / periumbilical Current Severity: Severe Maximum Severity: Severe Worsened by: Food Relieved by: Nothing - tried Tylenol only - Nausea/Vomiting/Emesis GI Symptom: Nausea, Vomiting - 1-2 days ago - Diarrhea/Melena/Hematochezia GI Symptom: Negative for: Diarrhea, Melena, Hematochezia Associated Symptoms: Negative for: Dysuria, Frequency, Hematuria, Urgency Narrative: Patient states she has been having this pain for 1 to 2 weeks. She was seen here in the ER couple weeks ago for the same discomfort, concerned that she had a history of pancreatitis and wondering if this was related. Her work-up was negative. She has not followed up since given the stay at home orders for coronavirus national emergency. She was admitted just prior to that for pneumonia and discharged after getting better. No new fevers. She states the pain does radiate into her back but it is on the sides of her low back only. She had pancreatitis related to gallstones and possibly high triglycerides. She has not seen her doctor in a while and is on no medicine for her cholesterol/triglycerides. Recent Illness/Hospitalization: Yes - pneumonia; much better now. - Past Medical History (1) Hypertriglyceridemia Status: Chronic (2) Depression Status: Chronic Comment: cassia, encourage counseling. (3) Diabetes in Status: Chronic Comment: sees endocrinology. optho consult. Seeing Dr. Cortes. Growth US at 28 wk, weekly bpps and weekly nsts after 32 weeks deliver at 38 (4) Hypertension Status: Chronic (5) History of pancreatitis Status: Resolved Comment: monitor PRN (6) Sterilization Status: Inactive Comment: juan alberto 19 signed 03/27/19 plan PPTL Past Medical History - Allergies and Home Meds Allergies/Adverse Reactions: Allergies Gadolinium-MRI Contrast Medium [DYE] Allergy (Severe, Verified 06/22/19 12:21) KIDNEY FAILURE kidney failure Primary Care Physician: Bryant Cardona MD [Primary Care Provider] - Surgical History: cholecystectomy, - - BTL Lives: With Family Smoking Status: Never smoker - Family History Maternal Family History: Family History (Last Reviewed 06/06/19 @ 07:[address] Isaías Galdamez MD) Mother Diabetes Grandmother Diabetes Grandfather Diabetes Father hyperlipidemia Unknown Depression Hypertension Family History: Reports: Diabetes Paternal Family History: Family History (Last Reviewed 06/06/19 @ 07:[address] Isaías Galdamez MD) Mother Diabetes Grandmother Diabetes Grandfather Diabetes Father hyperlipidemia Unknown Depression Hypertension Family History: Reports: Diabetes Review of Systems General: Denies: Chills, Fever, Sweats Eyes: Denies: Visual changes - bilaterally, Diplopia ENT: Denies: Rhinorrhea, Sore throat Cardiovascular: Denies: Chest pain, Palpitations Respiratory: Reports: Cough. Denies: Dyspnea, Sputum, Dyspnea on exertion Gastrointestinal: Reports: Abdominal pain, Nausea, Vomiting. Denies: Diarrhea, Melena, Hematochezia Genitourinary: Denies: Dysuria, Hematuria, Frequency Musculoskeletal: Reports: Back pain. Denies: Neck pain, Swelling, Extremity Pain Skin: Denies: Rash, Wounds Neurological: Denies: Headache, Weakness, Numbness Physical Exam Vital Signs/Narrative: Vital Signs Temp Pulse Resp BP Pulse Ox 06/22/19 12:17 98.1 F 89 16 138/84 H 95 Inital Vital Signs reviewed: Yes General: Well nourished, Well developed, No Acute Distress - Well-appearing Head: Normocephalic, Atraumatic Eyes: Perrl, EOMI ENT: Moist mucous membranes, No rhinorrhea Neck: Supple, Nontender Cardiovascular: Regular rate, Regular rhythm, No murmurs. Negative for: Tachycardia Respiratory: No distress, Chest nontender, Wheezing - slight insp/exp bilat Abdomen: Soft, Nondistended, Normal bowel sounds, No masses, Tender - mild, across upper abd only. Negative for: Guarding, Rebound tenderness Back: Nontender, Normal Inspection. Negative for: CVA tenderness Extremities: Nontender, No edema. Negative for: Calf Tenderness Skin: Normal color, No rash, No Trauma Neurological: Alert, Oriented x3, Cranial nerves II-XII grossly intact, Normal Strength, Normal Sensation, Normal Gait Psychological: Normal affect, Normal Mood Diagnostic/Tx/Re-eval Laboratory Tests 06/22/19 06/22/19 Range/Units 13:30 13:30 WBC 6.5 (4.4-11.0) K/mm3 RBC 4.25 (4.2-5.4) M/mm3 Hgb 13.0 (12.0-15.0) g/dL Hct 36.5 L (37-47) % MCV 85.9 (81-99) fL MCH 30.6 (27.0-32.0) pg MCHC 35.6 (32-36) g/dL RDW Std Deviation 47.9 H (35.1-43.9) fl RDW Coeff of Varun 15.4 H (11.6-14.6) % Plt Count 236 (150-450) K/mm3 MPV 9.9 (6.2-12.0) fl Immature Gran % (Auto) 0.500 (0.0-0.9) % Neut % (Auto) 68.6 (47-70) % Lymph % (Auto) 24.5 (19-41) % Cameron % (Auto) 3.9 (0-10) % Eos % (Auto) 2.2 (0-5) % Baso % (Auto) 0.3 (0-1) % Absolute Neuts (auto) 4.5 (2.0-7.7) X10^3/uL Absolute Lymphs (auto) 1.59 (0.83-4.51) X10^3/uL Nucleated RBC % 0 (0-5) % Sodium 138 (136-145) mmol/L Potassium 3.9 (3.5-5.1) mmol/L Chloride 107 (98-107) mmol/L Carbon Dioxide 20.0 L (21.0-32.0) mmol/L Anion Gap 11 (5-15) BUN 10 (7-18) mg/dL Creatinine 0.64 (0.55-1.02) mg/dL Estim Creat Clear Calc 113.09 ml/min Est GFR (MDRD) Af Amer 147 (>60) mL/min Est GFR (MDRD) Non-Af 122 (>60) mL/min BUN/Creatinine Ratio 15.7 (10-20) RATIO Glucose 173 H (74-106) mg/dL Calcium 8.5 (8.5-10.1) mg/dL Total Bilirubin 0.30 (0.20-1.00) mg/dL AST 23 (15-37) U/L ALT 51 (13-56) U/L Alkaline Phosphatase 70 (45-117) U/L Total Protein 7.3 (6.4-8.2) g/dL Albumin 3.4 (3.2-5.0) g/dL Globulin 3.9 (2.2-4.2) g/dL Albumin/Globulin Ratio 0.9 (0.9-2.4) RATIO Lipase 604 H (73-393) U/L - Medical Decision Making Patient recently had labs for the same symptoms that were normal, so we started with a GI cocktail and Zofran but this did not help her symptoms at all, therefore we repeated her blood test. Her lipase is a little abnormal just over 600, different compared to last week. This certainly is not indicative of acute pancreatitis especially with almost 2 weeks of symptoms. She was additionally treated with Bentyl and Toradol, this did help some. I do not think she needs to be admitted for this. I think she can be discharged on a bland diet, attempting to do mostly clear liquids, and follow-up with her doctor return if worse. Will prescribe her a PPI, and Bentyl and Phenergan prn. She is comfortable with that plan. ED Disposition - Plan for ED Patient: Disposition: Home or Assisted Living Diagnosis: Diffuse abdominal pain, Elevated lipase Instructions: ED Abdominal Pain Unkn Cause Fem, ED Diet Clear Liquid, ED Diet Morrison Prescriptions: Dicyclomine HCl [Bentyl] 20 mg PO Q4H PRN PRN #20 cap PRN Reason: abdominal cramping Transmission Status: Pending to [id number] proMETHazine tablet [Phenergan] 25 mg PO Q6H PRN PRN #12 tab PRN Reason: Nausea Transmission Status: Pending to [id number] Pantoprazole Sodium [Protonix] 40 mg PO DAILY #30 tab Transmission Status: Pending to [id number] Referrals: Bryant Cardona MD [Primary Care Provider] - 3-5 Days if not improving Additional Instructions: Try to stick to the clear liquid diet for 48 hours, then bland for couple days to see if that helps decrease her pain. If you feel you are getting worse, you may return for reevaluation at any time.
[2019-06-22] MEDS: Mag Hydrox/Al Hydrox/Simeth 30 ML UDC PO (12:42)
[2019-06-22] MEDS: Ondansetron ODT 4 MG Tablet 8 MG PO (12:42)
[2019-06-22] MEDS: Ketorolac 60 MG/2 ML Vial IM (13:32)
[2019-06-22] MEDS: Dicyclomine 20 MG/2 ML Vial IM (13:37)
[2019-06-22 13:44] LABS: Absolute Lymphocyte Count 1.59 X10^3/uL (0.83-4.51); Absolute Neutrophil Count 4.5 X10^3/uL (2.0-7.7); Basophil# 0.02 X10^3/uL; Basophil% 0.3 % (0-1); Eosinophil# 0.14 X10^3/uL; Eosinophils% 2.2 % (0-5); Hematocrit 36.5 % (37-47); Lymphocyte # 1.59 X10^3/ul (4.0); Lymphocyte % 24.5 % (19-41); Mean Corpuscular Volume 85.9 fL (81-99); Mean Platelet Vol. 9.9 fl (6.2-12.0); Monocyte# 0.25 X10^3/uL; Monocyte% 3.9 % (0-10); NRBC Flagged by Analyzer 0 % (0-5); Neutrophil # 4.46 X10^3/uL (2.7-7.7); Neutrophil % 68.6 % (47-70); POSITIVE COUNT YES; Platelet Count 236 K/mm3 (150-450); RBC Distribution Width CV 15.4 % (11.6-14.6); RBC Distribution Width SD 47.9 fl (35.1-43.9); Red Blood Count 4.25 M/mm3 (4.2-5.4); White Blood Count 6.5 K/mm3 (4.4-11.0)
[2019-06-22 14:10] VITALS: RESP 16
[2019-06-22 14:28] LABS: ALB/GLOB Ratio 0.9 RATIO (0.9-2.4); AST(SGOT) 23 U/L (15-37); Alanine Aminotransfer ALT/SGPT 51 U/L (13-56); Albumin, Serum 3.4 g/dL (3.2-5.0); Alkaline Phosphatase 70 U/L (45-117); Anion Gap 11 (5-15); BUN 10 mg/dL (7-18); BUN/Creat Ratio 15.7 RATIO (10-20); Calcium,Total 8.5 mg/dL (8.5-10.1); Chloride 107 mmol/L (98-107); Creatinine, Serum 0.64 mg/dL (0.55-1.02); EST Glomerular Filtration Rate 122 mL/min (>60); Est Glom Filt Rate - Afr Amer 147 mL/min (>60); Estimated Creatinine Clearance 113.09 ml/min; Globulin 3.9 g/dL (2.2-4.2); Glucose 173 mg/dL (74-106); Lipase 604 U/L (73-393); Potassium 3.9 mmol/L (3.5-5.1); Protein, Total 7.3 g/dL (6.4-8.2); Sodium Level 138 mmol/L (136-145)
[2019-06-22 14:38] LABS: Mean Corp Hgb Conc 35.6 g/dL (32-36); Mean Corpuscular Hgb 30.6 pg (27.0-32.0)
[2019-06-22 15:21] VITALS: RESP 16
== END 2019-06-22 15:22 | disposition home or self-care (01) ==
PROVIDERS: Emergency Provider Emergency Medicine; PCP Family Medicine
DX: R10.84 Generalized abdominal pain (principal); R74.8 Abnormal levels of other serum enzymes; I10 Essential (primary) hypertension; F32.9 Major depressive disorder, single episode, unspecified; E78.1 Pure hyperglyceridemia; Z79.899 Other long term (current) drug therapy
CPT/HCPCS: 80053; 83690; 85025; 96372

== ENCOUNTER 2019-06-22 21:18 | Inpatient (IN) | payer MEDICAID, SELFPAY ==
[2019-06-22 12:17] VITALS: BMI 42.5
[2019-06-22 21:19] VITALS: BP 159/87; PULSE 89; RESP 18; TEMP 36.4; O2SAT 96; BMI 42.3
--- NOTE | 2019-06-22 21:29 | CT_ITS ---
STUDY: CT ABDOMEN AND PELVIS WITHOUT CONTRAST REASON FOR EXAM: Female, 23 years old. ABD PAIN X 1-2 WEEKS. H/O PANCREATITIS, UTIS RADIATION DOSAGE (If Supplied By Facility): CTDIvol = ( 21.24 ) mGy, DLP = ( 1135.42 ) mGycm TECHNIQUE: Transaxial images were obtained from the dome of the diaphragm to the symphysis pubis without oral contrast, and without intravenous contrast. Sagittal and coronal images were reconstructed. Individualized dose optimization techniques were used for this CT. COMPARISON: 07/28/2018 FINDINGS: Left lower lobe bronchiolitis. Bibasilar atelectasis. The visualized portions of the heart are within normal limits. Hepatomegaly, with liver length of 28 cm. There are surgical clips in the gallbladder fossa consistent with a prior cholecystectomy. Splenomegaly, with spleen length of 21 cm. Acute pancreatitis. Peripancreatic fatty stranding is noted. No distinct pseudocyst is seen. Normal bilateral adrenal glands. Normal right kidney. Normal left kidney. Normal visualized stomach. Normal small intestine. Normal colon. The appendix is visualized and appears normal. Normal abdominal aorta. Normal inferior vena cava. Normal retroperitoneum. Normal urinary bladder. Normal abdominal wall. Normal osseous structures. CT/Abdomen/Pelvis without Cont IMPRESSION: Acute pancreatitis without visible pseudocyst. Hepatosplenomegaly. Left lower lobe bronchiolitis. Electronically Signed: Herman Patel MD at 23:04 EDT Tel , Service support ,
[2019-06-22] MEDS: 0.9% Normal Saline 1,000 ML 1000 ML IV (21:42)
[2019-06-22] MEDS: Ondansetron 4 MG/2 ML Vial IV (21:43)
[2019-06-22] MEDS: Morphine 4 MG/ML Syringe IV (21:44)
[2019-06-22 21:55] LABS: Absolute Lymphocyte Count 1.64 X10^3/uL (0.83-4.51); Absolute Neutrophil Count 6.9 X10^3/uL (2.0-7.7); Basophil# 0.03 X10^3/uL; Basophil% 0.3 % (0-1); Eosinophil# 0.12 X10^3/uL; Eosinophils% 1.3 % (0-5); Hemoglobin 14.2 g/dL (12.0-15.0); Lymphocyte # 1.64 X10^3/ul (4.0); Mean Corp Hgb Conc 37.4 g/dL (32-36); Mean Corpuscular Hgb 32.6 pg (27.0-32.0); Mean Corpuscular Volume 87.4 fL (81-99); Mean Platelet Vol. 10.5 fl (6.2-12.0); Monocyte# 0.44 X10^3/uL; Monocyte% 4.8 % (0-10); NRBC Flagged by Analyzer 0 % (0-5); Neutrophil # 6.85 X10^3/uL (2.7-7.7); Neutrophil % 75.1 % (47-70); Platelet Count 260 K/mm3 (150-450); RBC Distribution Width CV 15.7 % (11.6-14.6); RBC Distribution Width SD 49.6 fl (35.1-43.9); Red Blood Count 4.35 M/mm3 (4.2-5.4); White Blood Count 9.1 K/mm3 (4.4-11.0)
[2019-06-22 22:32] LABS: Internal QC Validated? YES +Cl - CLEAR BKGD
[2019-06-22 22:33] LABS: Pregnancy, Serum, hCG Quali. NEGATIVE Negative
[2019-06-22 22:50] VITALS: BP 122/78; PULSE 84; RESP 15; O2SAT 95
--- NOTE | 2019-06-22 23:09 | ED.VISSUMM ---
- ER Visit Summary Date of Service: 06/22/19 Chief Complaint: Abdominal pain History of Present Illness: The patient is a 23 F with a history of pancreatitis secondary to high triglycerides. She was here earlier in the day and had a lipase of 600. She was sent home but had continued pain. Physical Examination: Afebrile and vitals unremarkable. Skin normal. Abdomen is slightly tender. No guarding or rebound. Test Results: CMP and lipase are still pending secondary to lipemia, but her CT shows pancreatitis without pseudocyst. Emergency Department Course and Treatment: Patient was treated with morphine, Zofran, fluids while awaiting results. Blood work is still pending, but she has signs and symptoms, history, and CT findings of pancreatitis without complications. She required additional pain medicine. Will contact the hospitalist for inpatient care. Treatment Plan: As above Disposition: Admission Impression: Pancreatitis This note was generated with QCoefficient dictation software. It may contain incorrect words, spelling, and punctuation that were not noted in review of the chart prior to signing ED Disposition - Plan for ED Patient: Referrals: Bryant Cardona MD [Primary Care Provider] -
--- NOTE | 2019-06-22 23:12 | PCM.HP.STD ---
Problem List (1) Pancreatitis Status: Acute (2) Hypertension Status: Chronic Qualifiers: Hypertension type: essential hypertension Qualified Code(s): I10 - Essential (primary) hypertension (3) Hypertriglyceridemia Status: Chronic (4) History of pancreatitis Status: Chronic Comment: monitor PRN (5) History of severe pre-eclampsia Status: Chronic Comment: nl baseline labs (6) Diabetes in Status: Chronic Qualifiers: Comment: sees endocrinology. optho consult. Seeing Dr. Cortes. Growth US at 28 wk, weekly bpps and weekly nsts after 32 weeks deliver at 38 (7) Depression Status: Chronic Qualifiers: Comment: riccooft, encourage counseling. History of Present Illness Date of Admission: 06/22/19 Chief Complaint: abdominal pain The patient is a 23 year old F with a significant history of recurrent history of Pancreatitis status post cholecystectomy who presented to emergency department for the second time on the same day because of excruciating abdominal pain. Her abdominal pain is across her entire upper abdomen. It radiates to her bilateral flanks. She rates her pain as 8 out of 10. At rest the pain is localized only on her abdomen. But with minimal everyday activity like changing diapers her pain radiates to her bilateral flanks. Associated with her symptoms is nausea without vomiting. She describes her pain as like somebody using a hammer to hit her. On her first visit to the ED on 06/22/2019 she was given given fentanyl. She was then prescribed Bentyl and sent home. Because of persistent symptoms she came back to the emergency department for the second time as above. Blood drawn at emergency department on the second visit showed lipemia. Also potassium was elevated. Her symptoms has been going on for about 1 week and it has been progressively worsening. In the past she was [facility] because of worsening CT findings of pancreatitis. At that visit she received dialysis for KIM. General surgery followed. See Discharge Summary written by Dr. Dustin Rivero on 09-27-2017. She was admitted on 09/20/2017 and discharged on 09/28/2017 Past Medical History Past Medical History (Chronic Problems): Chronic Problems (Last Reviewed 06/23/19 @ 02:[address] Isaías Galdamez MD) Hypertension (Chronic) Hypertriglyceridemia (Chronic) History of pancreatitis (Chronic) monitor PRN History of severe pre-eclampsia (Chronic) nl baseline labs Diabetes in (Chronic) sees endocrinology. optho consult. Seeing Dr. Cortes. Growth US at 28 wk, weekly bpps and weekly nsts after 32 weeks deliver at 38 Depression (Chronic) zoloft, encourage counseling. Medical History: Medical History (Last Reviewed 06/23/19 @ 02:[address] Isaías Galdamez MD) Depression (Chronic) F32.9 zoloft, encourage counseling. High triglycerides E78.1 Hx of transfusion of whole blood Z92.89 Hx: UTI (urinary tract infection) Z87.440 Hyperlipidemia E78.5 Kidney failure N19 HTN (hypertension) I10 Acute pancreatitis (Resolved) K85.90 Migraine headache (Resolved) G43.909 Type 2 diabetes mellitus (Resolved) E11.9 Hyperlipidemia (Inactive) E78.5 Allergies Gadolinium-MRI Contrast Medium [DYE] Allergy (Severe, Verified 06/22/19 21:18) KIDNEY FAILURE kidney failure Home Medications: Ambulatory Orders Medication Instructions Recorded sertraline 100 mg tablet 100 mg PO DAILY 01/06/19 Nifedipine [Procardia Xl] 30 mg PO DAILY #30 tab.er.24 05/15/19 Dicyclomine HCl [Bentyl] 20 mg PO Q4H PRN PRN #20 cap 06/22/19 Omeprazole 40 mg PO DAILY 06/22/19 proMETHazine tablet [Phenergan] 25 mg PO Q6H PRN PRN #12 tab 06/22/19 Surgical History: Surgical History (Last Reviewed 06/23/19 @ 02:[address] Isaías Galdamez MD) History of carpal tunnel release of both wrists Z98.890 History of cholecystectomy Z90.49 History of endoscopy Z98.890 Surgical History: cholecystectomy, - - BTL Psychiatric History: Anxiety, Depression [employer] History: - - recent vaginal delivery 9 weeks ago with pre-eclampsia and PG induced HTN Smoking Status: Never smoker Alcohol: None - *Family History Maternal Family History: Family History (Last Reviewed 06/23/19 @ 01:[address] Isaías Galdamez MD) Mother Diabetes Grandmother Diabetes Grandfather Diabetes Father hyperlipidemia Unknown Depression Hypertension History Items: Diabetes Paternal Family History: Family History (Last Reviewed 06/23/19 @ 01:[address] Isaías Galdamez MD) Mother Diabetes Grandmother Diabetes Grandfather Diabetes Father hyperlipidemia Unknown Depression Hypertension History Items: Diabetes Review of Systems Constitutional: Denies: Chills, Fever, Weight Change HEENT: Denies: Head Aches, Sinus Congestion, Sinus Drainage Cardiovascular: Denies: Chest Pain, Palpitations Respiratory: Denies: Cough, Shortness of breath at rest, Sputum production Gastrointestinal: Reports: Abdominal Pain, Nausea. Denies: Vomiting Genitourinary: Denies: Dysuria Musculoskeletal: Denies: Joint Pain, Joint Tenderness Skin: Denies: Rash, Wounds Neurological: Denies: Numbness, Tingling, Focal weakness Psychiatric: Denies: Anxiety, Depression, Homicidal Ideations, Suicidal Ideations Hematologic/ Lymphatic: Denies: Easy Bruising, Easy Bleeding VTE Information - Inpt Only VTE Present on Admission: No VTE Mechan Device Prophylaxis: SCD's VTE Pharm Prophylaxis ordered?: No Patient Problems: Active and Suspected Problems (Last Reviewed 06/23/19 @ 02:[address] Isaías Galdamez MD) Pancreatitis (Acute) - Physical Exam Vitals/I&O's: Vital Signs Temp Pulse Resp BP Pulse Ox 97.5 F L 84 15 122/78 H 95 06/22/19 21:19 06/22/19 22:50 06/22/19 22:50 06/22/19 22:50 06/22/19 22:50 Oxygen Delivery Method Room Air Weight: 108.5 kg Body Mass Index (BMI) 42.3 Finger Stick Blood Glucose 248 General: Alert, Oriented x3, Cooperative HEENT: Atraumatic, PERRLA, EOMI, Normocephalic Neck: Supple, No JVD, Negative Carotid Bruits Lungs: Clear to auscultation, Normal air movement, No rhonchi, No wheeze, No rales Cardiovascular: Regular rate, Normal S1, Normal S2, No murmurs Abdomen: Bowel Sounds Present, Soft, Tender Extremities: No edema, Capillary Refill Less than 3 Seconds Skin: No rashes, No breakdown Musculoskeletal: No Tenderness to Palpation of Joints or Extremities Neurological: Cranial nerves II-XII grossly intact Psych/Mental Status: Normal Affect, Appropriate Laboratory Results 06/22/19 21:45: WBC 9.1, RBC 4.35, Hgb 14.2, Hct 38.0, MCV 87.4, MCH 32.6 H, MCHC 37.4 H D, RDW Std Deviation 49.6 H, RDW Coeff of Varun 15.7 H, Plt Count 260, MPV 10.5, Immature Gran % (Auto) 0.500, Neut % (Auto) 75.1 H, Lymph % (Auto) 18.0 L, Snyder % (Auto) 4.8, Eos % (Auto) 1.3, Baso % (Auto) 0.3, Absolute Neuts (auto) 6.9, Absolute Lymphs (auto) 1.64, Nucleated RBC % 0 06/22/19 21:45: Sodium Pending, Potassium Pending, Chloride Pending, Carbon Dioxide Pending, Anion Gap Pending, BUN Pending, Creatinine Pending, Est GFR (MDRD) Af Amer Pending, Est GFR (MDRD) Non-Af Pending, BUN/Creatinine Ratio Pending, Glucose Pending, Calcium Pending, Total Bilirubin Pending, AST Pending, ALT Pending, Alkaline Phosphatase Pending, Total Protein Pending, Albumin Pending, Lipase Pending 06/22/19 21:45: Serum , Qual NEGATIVE Assessment/Plan All Active Problems (Last Reviewed 06/23/19 @ 02:[address] Isaías Galdamez MD) Pancreatitis (Acute) KIM (acute kidney injury) (Resolved) Abdominal pain (Resolved) Acute pancreatitis (Resolved) Cholelithiasis (Resolved) Cholelithiasis and cholecystitis with obstruction (Resolved) History of pre-eclampsia (Resolved) Hypertension affecting in second trimester (Resolved) Migraine headache (Resolved) RUQ abdominal pain (Resolved) Recurrent acute pancreatitis (Resolved) Severe preeclampsia (Resolved) Supervision of high risk in second trimester (Resolved) Type 2 diabetes mellitus (Resolved) The patient is a 23 year old F with a significant history of recurrent history of Pancreatitis status post cholecystectomy who presented to emergency department for the second time on the same day because of excruciating abdominal pain; and found to have elevated lipase; CT of the abdomen and pelvis finding of pancreatic inflammation and elevated triglycerides consistent with acute pancreatitis secondary to likely hypertriglyceridemia. Acute pancreatitis Her lipase on first ED presentation at the emergency department on 06/22/2019 was 604. Repeat lipase on 06/22/2019 was less than 10; this could be spurious. Stat triglycerides show triglyceride level of 1280. Discussed with nephrology (Dr. Gomez) who thought that level of triglycerides is not high enough for plasmapheresis. Will start patient on insulin drip with concomitant dextrose with -normal saline. Insulin drip was started at 0.1 units/kg/hr; adjust as needed. Serial Accu-Cheks. Patient is sure she can tolerate liquids. Will start patient on clear liquid diet. When pancreatitis is resolved consider starting patient on p.o. anti-triglyceride medications to prevent recurrence of pancreatitis. Patient reported that she was on medication for hypertriglyceridemia but it was discontinued because of a . She reported after her gallbladder was taken out it was suggested to her that her pancreatitis could be secondary to hypertriglyceridemia. She received morphine and Dilaudid at the emergency department. We will continue patient on Dilaudid prn. PRN Zofran ordered. Trend triglycerides Hyperkalemia Insulin dextrose infusion as above Trend BMP. Hepatosplenomegaly. Per imaging on presentation. Review of old record showed that abdomen and pelvis CT on 07/28/2018 showed hepatic steatosis. Lipid control in the long-term. Left lobe bronchiolitis and atelectasis Per imaging on presentation. Patient with no respiratory symptoms. Incentive spirometer ordered. Diabetes mellitus Patient is not on home hyperglycemic regimen. Glucose on BMP was 208. Insulin dextrose and infusion as above. Hemoglobin A1c returned at 5.9. Normal anion gap metabolic acidosis Sodium 139; anion gap 17. Bicarbonate 10. Using albumin for anion gap calculation anion gap is 10. Hypertension Differential diagnoses includes preeclampsia. Patient is 6 weeks . Nifedipine continued. Trend blood pressure and adjust blood pressure medication as needed. Depression and anxiety Zoloft continued. GERD Protonix continued. DVT prophylaxis Patient with BMI of 42.4; age of 23. Put on SCD. Encourage ambulation. Inpatient E&M: 65086 Init Hosp L3
[2019-06-22] MEDS: HYDROmorphone 1 MG/ML Syringe IV (23:21)
[2019-06-22 23:27] LABS: AST(SGOT) 52 U/L (15-37); Alanine Aminotransfer ALT/SGPT 55 U/L (13-56); Albumin, Serum < 0.1 g/dL (3.2-5.0); Alkaline Phosphatase 70 U/L (45-117); Anion Gap 17 (5-15); Calcium,Total 8.1 mg/dL (8.5-10.1); Chloride 112 mmol/L (98-107); Creatinine, Serum 0.87 mg/dL (0.55-1.02); EST Glomerular Filtration Rate 85 mL/min (>60); Est Glom Filt Rate - Afr Amer 103 mL/min (>60); Estimated Creatinine Clearance 83.19 ml/min; Glucose 208 mg/dL (74-106); Lipase < 10 U/L (73-393); Potassium 5.6 mmol/L (3.5-5.1); Protein, Total 7.8 g/dL (6.4-8.2); Sodium Level 139 mmol/L (136-145)
[2019-06-22 23:34] LABS: BUN < 1 mg/dL (7-18); BUN/Creat Ratio 1.1 RATIO (10-20)
[2019-06-22 23:52] VITALS: O2SAT 93
[2019-06-22 23:55] VITALS: BMI 42.3
[2019-06-22 23:57] VITALS: BP 117/68; PULSE 87; RESP 18; TEMP 36.8; O2SAT 93
[2019-06-23] VITALS (20 sets, daily range): BP systolic 101–140; BP diastolic 48–92; PULSE 83–103; RESP 17–46; TEMP 36.8–37.3; O2SAT 90–96; BMI 42.4
[2019-06-23 00:14] LABS: Triglycerides 1280 mg/dL
[2019-06-23] MEDS: Dextrose 50%-Water 25 GM/50 ML DISP.SYRIN IV (00:15)
[2019-06-23] MEDS: Insulin Lispro 10 UNIT in Syringe 0 ML 6 UNIT IV (00:18)
[2019-06-23 00:31] LABS: Bedside Glucose 249 mg/dL (70-110)
[2019-06-23 00:32] LABS: Hemoglobin A1c 5.9 % (4.2-6.3)
[2019-06-23] MEDS: Dextrose 5%/0.9% NaCl 1,000 ML 200 ML IV ×2 (01:54→06:14)
--- NOTE | 2019-06-23 01:55 | NURSING ---
report given to MONICA hardwick
[2019-06-23] MEDS: 0.9% Saline Lock 10 ML Syringe IV ×3 (02:01→21:50)
[2019-06-23 02:11] LABS: Bedside Glucose 134 mg/dL (70-110)
[2019-06-23] MEDS: HYDROmorphone 0.5 MG/0.5 ML SYRINGE IV ×6 (02:59→21:50)
[2019-06-23 03:11] LABS: Bedside Glucose 123 mg/dL (70-110)
[2019-06-23 04:11] LABS: Bedside Glucose 105 mg/dL (70-110)
[2019-06-23 05:05] LABS: Bedside Glucose 99 mg/dL (70-110)
[2019-06-23 05:28] LABS: Absolute Lymphocyte Count 1.44 X10^3/uL (0.83-4.51); Absolute Neutrophil Count 5.1 X10^3/uL (2.0-7.7); Basophil# 0.01 X10^3/uL; Basophil% 0.1 % (0-1); Eosinophil# 0.08 X10^3/uL; Eosinophils% 1.1 % (0-5); Hematocrit 34.6 % (37-47); Hemoglobin 11.7 g/dL (12.0-15.0); Lymphocyte # 1.44 X10^3/ul (4.0); Lymphocyte % 20.7 % (19-41); Mean Corp Hgb Conc 33.8 g/dL (32-36); Mean Corpuscular Hgb 30.5 pg (27.0-32.0); Mean Corpuscular Volume 90.1 fL (81-99); Mean Platelet Vol. 10.4 fl (6.2-12.0); Monocyte# 0.33 X10^3/uL; Monocyte% 4.7 % (0-10); NRBC Flagged by Analyzer 0 % (0-5); Neutrophil # 5.08 X10^3/uL (2.7-7.7); Neutrophil % 73.1 % (47-70); Platelet Count 204 K/mm3 (150-450); RBC Distribution Width CV 16.1 % (11.6-14.6); RBC Distribution Width SD 52.4 fl (35.1-43.9); Red Blood Count 3.84 M/mm3 (4.2-5.4)
[2019-06-23 06:08] LABS: Anion Gap 10 (5-15); BUN 7 mg/dL (7-18); BUN/Creat Ratio 8.9 RATIO (10-20); Calcium,Total 7.5 mg/dL (8.5-10.1); Chloride 111 mmol/L (98-107); Creatinine, Serum 0.79 mg/dL (0.55-1.02); EST Glomerular Filtration Rate 95 mL/min (>60); Est Glom Filt Rate - Afr Amer 115 mL/min (>60); Estimated Creatinine Clearance 91.62 ml/min; Glucose 116 mg/dL (74-106); Potassium 3.7 mmol/L (3.5-5.1); Sodium Level 142 mmol/L (136-145)
[2019-06-23] MEDS: Ketorolac 15 MG/ML Vial IV (06:14)
[2019-06-23 06:20] LABS: Bedside Glucose 127 mg/dL (70-110)
[2019-06-23 07:21] LABS: Bedside Glucose 136 mg/dL (70-110)
[2019-06-23] MEDS: 0.9% Normal Saline 1,000 ML 200 ML IV ×4 (08:11→23:23)
--- NOTE | 2019-06-23 10:08 | PN_ITS ---
Patient Problems: Active and Suspected Problems (Last Reviewed 06/23/19 @ 02:[address] Isaías Galdamez MD) Pancreatitis (Acute) Subjective: Patient was seen and examined today, she still complains of abdominal pain, she does not complain of any shortness of breath or chest pain however. I stopped the patient's insulin drip-I do not believe she needs an insulin drip for her triglycerides. Patient states that she follows up with her PCP concerning her pancreatitis-she has not seen a GI physician. - Physical Exam Vitals/I&O's: Vital Signs Temp Pulse Resp BP Pulse Ox 98.2 F 86 24 H 115/48 L 94 06/23/19 07:00 06/23/19 07:00 06/23/19 08:20 06/23/19 07:00 06/23/19 08:21 Oxygen Flow Rate (L/min) 2 Oxygen Delivery Method Nasal Cannula Weight: 108.5 kg Body Mass Index (BMI) 42.3 Finger Stick Blood Glucose 105 Intake and Output for Last 24 Hours 06/21/19 06/22/19 06/23/19 23:59 23:59 23:59 Intake Total 1000 / 1000 1314.34 / 1314.34 Output Total 400 / 400 Balance 1000 / 1000 914.34 / 914.34 General: Alert, Oriented x3, Cooperative, Well developed HEENT: Atraumatic, PERRLA, EOMI, Normocephalic Oral: Moist Mucosa Neck: Supple, Trachea Midline, Thyroid Normal Size and Texture Lungs: Clear to auscultation, Normal air movement, No rhonchi, No wheeze, No rales Cardiovascular: Regular rate, Regular Rhythm, Normal S1, Normal S2, No murmurs, PMI Normal, No rub noted, No Gallop Abdomen: Soft, Hypoactive Bowel Sounds, Obese, Tender - Generalized abdominal tenderness is noted over the upper abdomen and mid abdominal area Extremities: No clubbing, No cyanosis, No edema, Capillary Refill Less than 3 Seconds Skin: No rashes, No breakdown Musculoskeletal: No Tenderness to Palpation of Joints or Extremities Neurological: Cranial nerves II-XII grossly intact, Neuro grossly intact, Sensory exam intact to light touch and pain, Coordination normal Psych/Mental Status: Normal Affect, Appropriate, Alert and oriented to time, place, person, mood and affect Laboratory Results 06/22/19 21:45: WBC 9.1, RBC 4.35, Hgb 14.2, Hct 38.0, MCV 87.4, MCH 32.6 H, MCHC 37.4 H D, RDW Std Deviation 49.6 H, RDW Coeff of Varun 15.7 H, Plt Count 260, MPV 10.5, Immature Gran % (Auto) 0.500, Neut % (Auto) 75.1 H, Lymph % (Auto) 18.0 L, Martin % (Auto) 4.8, Eos % (Auto) 1.3, Baso % (Auto) 0.3, Absolute Neuts (auto) 6.9, Absolute Lymphs (auto) 1.64, Nucleated RBC % 0 06/22/19 21:45: Sodium 139, Potassium 5.6 H, Chloride 112 H, Carbon Dioxide 10.0 L, Anion Gap 17 H, BUN < 1 L, Creatinine 0.87, Estim Creat Clear Calc 83.19, Est GFR (MDRD) Af Amer 103, Est GFR (MDRD) Non-Af 85, BUN/Creatinine Ratio 1.1 L, Glucose 208 H, Calcium 8.1 L, Total Bilirubin 0.30, AST 52 H, ALT 55, Alkaline Phosphatase 70, Total Protein 7.8, Albumin < 0.1 L, Globulin TNP, Albumin/Globulin Ratio TNP, Lipase < 10 L 06/22/19 21:45: Serum , Qual NEGATIVE 06/22/19 21:45: Triglycerides 1280 H 06/22/19 21:45: Hemoglobin A1c 5.9 06/23/19 00:20: POC Glucose 249 H 06/23/19 01:56: POC Glucose 134 H 06/23/19 03:05: POC Glucose 123 H 06/23/19 04:04: POC Glucose 105 06/23/19 04:50: WBC 7.0, RBC 3.84 L, Hgb 11.7 L, Hct 34.6 L, MCV 90.1, MCH 30.5, MCHC 33.8 D, RDW Std Deviation 52.4 H, RDW Coeff of Varun 16.1 H, Plt Count 204, MPV 10.4, Immature Gran % (Auto) 0.300, Neut % (Auto) 73.1 H, Lymph % (Auto) 20.7, Martin % (Auto) 4.7, Eos % (Auto) 1.1, Baso % (Auto) 0.1, Absolute Neuts (auto) 5.1, Absolute Lymphs (auto) 1.44, Nucleated RBC % 0 06/23/19 04:50: Sodium 142, Potassium 3.7, Chloride 111 H, Carbon Dioxide 21.0, Anion Gap 10, BUN 7, Creatinine 0.79, Estim Creat Clear Calc 91.62, Est GFR (MDRD) Af Amer 115, Est GFR (MDRD) Non-Af 95, BUN/Creatinine Ratio 8.9 L, Glucose 116 H, Calcium 7.5 L 06/23/19 05:01: POC Glucose 99 06/23/19 06:11: POC Glucose 127 H 06/23/19 07:15: POC Glucose 136 H Current Medications Dextrose (D50w Syringe) 0 gm IV X1 PRN; Protocol PRN Reason: Hypoglycemia Glucagon () 1 mg IM .X1 PRN PRN Reason: Hypoglycemia Hydromorphone HCl (Dilaudid Inj) 0.5 mg IV Q3H PRN PRN PRN Reason: Pain Score 5-10/10 Last Admin: 06/23/19 06:13 Dose: 0.5 mg Documented by: Sodium Chloride () 1,000 mls @ 200 mls/hr IV .Q5H BORIS Last Admin: 06/23/19 08:11 Dose: 200 mls/hr Documented by: Insulin Human Lispro (Humalog Kwikpen (Bkc)) 0 unit SC Q6 BORIS; Protocol Nifedipine (Procardia Xl) 30 mg PO DAILY BORIS Ondansetron HCl (Zofran) 4 mg IV Q6H PRN PRN PRN Reason: NAUSEA/VOMITING Sertraline HCl (Zoloft) 100 mg PO DAILY [facility] Sodium Chloride () 10 - 40 ml IV UD PRN PRN Reason: SALINE FLUSH Last Admin: 06/23/19 08:12 Dose: 10 ml Documented by: Medical Necessity - Tobacco Use Smoking Status: Never smoker Assessment/Plan All Active Problems (Last Reviewed 06/23/19 @ 02:[address] Isaías Galdamez MD) Pancreatitis (Acute) KIM (acute kidney injury) (Resolved) Abdominal pain (Resolved) Acute pancreatitis (Resolved) Cholelithiasis (Resolved) Cholelithiasis and cholecystitis with obstruction (Resolved) History of pre-eclampsia (Resolved) Hypertension affecting in second trimester (Resolved) Migraine headache (Resolved) RUQ abdominal pain (Resolved) Recurrent acute pancreatitis (Resolved) Severe preeclampsia (Resolved) Supervision of high risk in second trimester (Resolved) Type 2 diabetes mellitus (Resolved) #1 acute pancreatitis-etiology unclear, patient will continue on IV fluids and remain n.p.o., she will receive IV pain medications as needed #2 elevated triglycerides-it is possible the patient's elevated triglycerides could cause pancreatitis, when patient is able to take oral medications I will place her on fenofibrate #3 type 2 diabetes-patient stated that she was on insulin during her but was taken off the insulin after she delivered, we will continue to monitor blood sugars. #4 class III obesity Inpatient E&M: 35119 Subs Hosp L2
[2019-06-23] MEDS: Ondansetron 4 MG/2 ML Vial IV ×2 (11:02→18:34)
[2019-06-23] MEDS: Sertraline 100 MG Tablet PO (11:02)
[2019-06-23] MEDS: NIFEdipine 30 MG Tablet PO (11:03)
[2019-06-23 11:10] LABS: Bedside Glucose 142 mg/dL (70-110)
--- NOTE | 2019-06-23 13:25 | CASEMGMT ---
Readmission chart review: Pt initially admitted 06/05-06/07/19 for Severe sepsis, pna, hypoxemia and pt was about 4wks post at that time. Pt then had 2 ED visits on 06/17/19 and 06/22/19 for abd pain but was discharged at that time, pt then returned for 06/22/19 for abd pain and was admitted for acute pancreatitis. Pt has a hx of pancreatitis. CM to follow for any further discharge planning/needs. See CM assessment completed by Cooper ANDERSON CM on 06/06/19. Tish ANDERSON CM
[2019-06-23 17:21] LABS: Bedside Glucose 125 mg/dL (70-110)
--- NOTE | 2019-06-23 21:04 | NURSING ---
Bladder scanned patient for >999 mL, primary RN notified MD who gave order to straight cath patient. This RN straight cathed patient for 1425 mL of clear, yellow urine. Post straight cath bladder scan showed 40 mL of urine left in bladder. Notified primary RN
[2019-06-24] VITALS (14 sets, daily range): BP systolic 111–121; BP diastolic 73–98; PULSE 68–108; RESP 16–18; TEMP 36.8–37.2; O2SAT 91–96
[2019-06-24] MEDS: HYDROmorphone 0.5 MG/0.5 ML SYRINGE IV ×5 (00:53→22:05)
[2019-06-24] MEDS: 0.9% Saline Lock 10 ML Syringe IV ×3 (00:53→19:23)
[2019-06-24 00:56] LABS: Bedside Glucose 99 mg/dL (70-110)
[2019-06-24] MEDS: 0.9% Normal Saline 1,000 ML 200 ML IV ×2 (04:22→09:31)
[2019-06-24] MEDS: Ondansetron 4 MG/2 ML Vial IV ×2 (06:34→19:23)
[2019-06-24 06:50] LABS: Bedside Glucose 122 mg/dL (70-110)
[2019-06-24] MEDS: NIFEdipine 30 MG Tablet PO (09:34)
[2019-06-24] MEDS: Sertraline 100 MG Tablet PO (09:34)
[2019-06-24] MEDS: Fenofibrate 145 MG Tablet PO (11:10)
[2019-06-24 11:20] LABS: Bedside Glucose 111 mg/dL (70-110)
[2019-06-24] MEDS: 0.9% Normal Saline 1,000 ML 150 ML IV ×2 (15:45→22:05)
--- NOTE | 2019-06-24 16:31 | PN_ITS ---
Patient Problems: Active and Suspected Problems (Last Reviewed 06/23/19 @ 02:[address] Isaías Galdamez MD) Pancreatitis (Acute) Subjective: Patient was seen and examined today, she still complains of mid abdominal pain, she is able to urinate without difficulty, I have advanced her diet to regular diet today. - Physical Exam Vitals/I&O's: Vital Signs Temp Pulse Resp BP Pulse Ox 98.3 F 86 18 119/82 H 95 06/24/19 15:38 06/24/19 15:38 06/24/19 15:38 06/24/19 15:38 06/24/19 15:38 Oxygen Flow Rate (L/min) 2 Oxygen Delivery Method Room Air Weight: 108.5 kg Body Mass Index (BMI) 42.3 Finger Stick Blood Glucose 105 Intake and Output for Last 24 Hours 06/22/19 06/23/19 06/24/19 23:59 23:59 23:59 Intake Total 1000 / 1000 5417.68 / 6017.68 4779.17 / 4779.17 Output Total 400 / 1825 2675 / 2675 Balance 1000 / 1000 5017.68 / 4192.68 2104.17 / 2104.17 General: Alert, Oriented x3, Cooperative, Well developed, Well nourished HEENT: Atraumatic, PERRLA, EOMI, Normocephalic Oral: Moist Mucosa Neck: Supple, No JVD, Trachea Midline, Thyroid Normal Size and Texture Lungs: Clear to auscultation, Normal air movement, No rhonchi, No wheeze, No rales Cardiovascular: Regular rate, Regular Rhythm, Normal S1, Normal S2, No murmurs, PMI Normal, No rub noted Abdomen: Bowel Sounds Present, Soft, Non-Distended, Obese, Tender - Mild mid abdominal tenderness is noted to palpation Extremities: No clubbing, No cyanosis, No edema, Capillary Refill Less than 3 Seconds Skin: No rashes, No breakdown Musculoskeletal: No Tenderness to Palpation of Joints or Extremities Neurological: Cranial nerves II-XII grossly intact, Neuro grossly intact, Muscle tone normal, Sensory exam intact to light touch and pain Psych/Mental Status: Normal Affect, Appropriate, Alert and oriented to time, place, person, mood and affect Laboratory Results 06/23/19 17:10: POC Glucose 125 H 06/24/19 00:47: POC Glucose 99 06/24/19 06:31: POC Glucose 122 H 06/24/19 11:15: POC Glucose 111 H Current Medications Dextrose (D50w Syringe) 0 gm IV X1 PRN; Protocol PRN Reason: Hypoglycemia Fenofibrate (Tricor) 145 mg PO DAILYCM [facility] Last Admin: 06/24/19 11:10 Dose: 145 mg Documented by: Glucagon () 1 mg IM .X1 PRN PRN Reason: Hypoglycemia Hydromorphone HCl (Dilaudid Inj) 0.5 mg IV Q4H PRN PRN PRN Reason: Pain Score 5-10/10 Last Admin: 06/24/19 11:08 Dose: 0.5 mg Documented by: Sodium Chloride () 1,000 mls @ 150 mls/hr IV .Q6H40M [facility] Last Admin: 06/24/19 15:45 Dose: 150 mls/hr Documented by: Insulin Human Lispro (Humalog Kwikpen (Bkc)) 0 unit SC Q6 BORIS; Protocol Last Admin: 06/24/19 11:16 Dose: Not Given Documented by: Nifedipine (Procardia Xl) 30 mg PO DAILY [facility] Last Admin: 06/24/19 09:34 Dose: 30 mg Documented by: Ondansetron HCl (Zofran) 4 mg IV Q6H PRN PRN PRN Reason: NAUSEA/VOMITING Last Admin: 06/24/19 06:34 Dose: 4 mg Documented by: Sertraline HCl (Zoloft) 100 mg PO DAILY [facility] Last Admin: 06/24/19 09:34 Dose: 100 mg Documented by: Sodium Chloride () 10 - 40 ml IV UD PRN PRN Reason: SALINE FLUSH Last Admin: 06/24/19 06:35 Dose: 10 ml Documented by: Medical Necessity - Tobacco Use Smoking Status: Never smoker Assessment/Plan All Active Problems (Last Reviewed 06/23/19 @ 02:[address] Isaías Galdamez MD) Pancreatitis (Acute) KIM (acute kidney injury) (Resolved) Abdominal pain (Resolved) Acute pancreatitis (Resolved) Cholelithiasis (Resolved) Cholelithiasis and cholecystitis with obstruction (Resolved) History of pre-eclampsia (Resolved) Hypertension affecting in second trimester (Resolved) Migraine headache (Resolved) RUQ abdominal pain (Resolved) Recurrent acute pancreatitis (Resolved) Severe preeclampsia (Resolved) Supervision of high risk in second trimester (Resolved) Type 2 diabetes mellitus (Resolved) #1 acute pancreatitis-etiology unclear, patient will continue on IV fluids, diet was advanced today, I have increased her Dilaudid frequency, patient will be encouraged to ambulate #2 elevated triglycerides-it is possible the patient's elevated triglycerides could cause pancreatitis-patient was placed on fenofibrate today #3 type 2 diabetes-patient stated that she was on insulin during her but was taken off the insulin after she delivered, we will continue to monitor blood sugars. #4 class III obesity Inpatient E&M: 44128 Subs Hosp L2
[2019-06-24 17:35] LABS: Bedside Glucose 153 mg/dL (70-110)
[2019-06-24 23:10] LABS: Bedside Glucose 92 mg/dL (70-110)
[2019-06-25] MEDS: Ondansetron 4 MG/2 ML Vial IV (02:43)
[2019-06-25] MEDS: HYDROmorphone 0.5 MG/0.5 ML SYRINGE IV ×2 (02:43→09:51)
[2019-06-25 02:49] VITALS: BP 133/68; PULSE 78; RESP 16; TEMP 36.8; O2SAT 97
[2019-06-25 03:00] VITALS: PULSE 80; RESP 18
[2019-06-25] MEDS: 0.9% Normal Saline 1,000 ML 150 ML IV (04:36)
[2019-06-25 06:41] LABS: Bedside Glucose 103 mg/dL (70-110)
[2019-06-25 07:30] VITALS: PULSE 68
[2019-06-25 08:00] VITALS: O2SAT 94
[2019-06-25 08:45] VITALS: BP 123/84; PULSE 81; RESP 16; TEMP 36.5; O2SAT 93
[2019-06-25 09:21] LABS: Bedside Glucose 106 mg/dL (70-110)
[2019-06-25] MEDS: Sertraline 100 MG Tablet PO (09:52)
[2019-06-25] MEDS: Fenofibrate 145 MG Tablet PO (09:52)
[2019-06-25] MEDS: NIFEdipine 30 MG Tablet PO (09:52)
--- NOTE | 2019-06-25 10:30 | DCINST_ITS ---
- Discharge Diagnoses Current Active Problems: Current Active and Chronic Problems (Last Reviewed 06/23/19 @ 02:[address] Isaías Galdamez MD) Pancreatitis (Acute) You will use the following diet at home:: Regular Your food should be the consistency of: Regular Your liquids should be the consistency of: Regular/Thin Discharge Activity: Return to Normal Activity Weight Bearing Status: Full weight bearing Allergies/Adverse Reactions: Allergies Gadolinium-MRI Contrast Medium [DYE] Allergy (Severe, Verified 06/22/19 21:18) KIDNEY FAILURE kidney failure Medications to take at Discharge sertraline 100 mg tablet 100 mg PO DAILY 01/06/19 Nifedipine [Procardia Xl] 30 mg PO DAILY #30 tab.er.24 05/15/19 Dicyclomine HCl [Bentyl] 20 mg PO Q4H PRN PRN #20 cap 06/22/19 Omeprazole 40 mg PO DAILY 06/22/19 proMETHazine tablet [Phenergan tablet] 25 mg PO Q6H PRN PRN #12 tab 06/22/19 Fenofibrate [Tricor] 145 mg PO DAILYCM #30 tab 06/25/19 Oxycodone [Oxyir] 5 - 10 mg PO Q6H PRN PRN 7 Days #14 tab 06/25/19 The following prescriptions were given: Oxycodone [Oxyir] 5 - 10 mg PO Q6H PRN PRN 7 Days #14 tab PRN Reason: Pain Score 1-10/10 Transmission Status: Sent to [id number] Fenofibrate [Tricor] 145 mg PO DAILYCM #30 tab Transmission Status: Pending to [id number] Primary Care Physician: Bryant Cardona MD [Primary Care Provider] - Please follow up with your Primary Care Physician in: in 2 weeks Test Results: Test results from this visit will be discussed in further detail at your follow- up appointment, if applicable.
[2019-06-25 12:10] LABS: Bedside Glucose 107 mg/dL (70-110)
--- NOTE | 2019-06-25 16:18 | DS.PCM_ITS ---
Discharge Date and Diagnosis Date of Admission: 06/22/19 Date of Discharge: 06/25/19 - Primary Discharge Diagnosis #1 acute recurrent pancreatitis-etiology unclear #2 elevated triglycerides #3 type 2 diabetes #4 essential hypertension #5 class III obesity - Secondary Discharge Diagnosis Chronic Problems (Last Reviewed 06/23/19 @ 02:[address] Isaías Galdamez MD) Hypertension (Chronic) Hypertriglyceridemia (Chronic) History of pancreatitis (Chronic) monitor PRN History of severe pre-eclampsia (Chronic) nl baseline labs Diabetes in (Chronic) sees endocrinology. optho consult. Seeing Dr. Cortes. Growth US at 28 wk, weekly bpps and weekly nsts after 32 weeks deliver at 38 Depression (Chronic) zoloft, encourage counseling. Hospital Course and Treatment Operations: None Procedures: None Summary of Care Provided: The patient is a 23 year old F seen in the emergency room at [facility] after returning to the emergency room for reevaluation of abdominal pain, she had been seen and it was noted that the patient's lipase was elevated, she was discharged to home but returned later on with the same complaints. Patient's repeat lipase was normal, patient was given IV narcotics and continued to complain of severe abdominal pain and was admitted to PCU for acute recurrent pancreatitis. Patient was treated with IV fluids and given IV narcotics for pain, she improved slowly during her hospitalization. It was noted that her triglycerides were elevated and she was placed on fenofibrate. On 06/25/2019, patient was seen and examined: On examination she appeared in good health and spirits, she does not appear to be in any distress. Vital signs as documented. Skin warm and dry and without overt rashes. Neck without JVD, thyroid appears normal, trachea is midline, neck is supple. Lungs clear, normal air movement was noted. Heart exam notable for regular rhythm, normal sounds and absence of murmurs, rubs or gallops. Abdomen unremarkable and without evidence of organomegaly, masses, or abdominal aortic enlargement, bowel sounds are present in all 4 quadrants, mild mid abdominal tenderness was noted to palpati on, patient was obese. Extremities nonedematous, no cyanosis was noted, no clubbing was noted. Neuro: Cranial nerves II through XII are grossly intact, no focal motor deficits were noted, sensation to light touch and pinprick is intact, motor exam 5/5 throughout. Psych: Patient is alert and oriented x3, she does not appear anxious or depressed, she does not appear agitated. Patient appears stable for discharge on 06/25/2019, she was to follow-up with her PCP regarding her acute recurrent pancreatitis. - Physical Exam Vitals/I&O's: Vital Signs Temp Pulse Resp BP Pulse Ox 97.7 F L 81 16 123/84 H 93 06/25/19 08:45 06/25/19 08:45 06/25/19 08:45 06/25/19 08:45 06/25/19 08:45 Oxygen Flow Rate (L/min) 2 Oxygen Delivery Method Room Air Weight: 108.5 kg Body Mass Index (BMI) 42.3 Finger Stick Blood Glucose 105 Intake and Output for Last 24 Hours 06/23/19 06/24/19 06/25/19 23:59 23:59 23:59 Intake Total 5417.68 / 6017.68 5729.17 / 6429.17 3537.5 / 3537.5 Output Total 400 / 1825 2675 / 2675 Balance 5017.68 / 4192.68 3054.17 / 3754.17 3537.5 / 3537.5 Laboratory Results 06/24/19 17:28: POC Glucose 153 H 06/24/19 22:04: POC Glucose 92 06/25/19 06:08: POC Glucose 103 06/25/19 08:19: POC Glucose 106 06/25/19 12:08: POC Glucose 107 Discharge Activity: Return to Normal Activity Weight Bearing Status: Full weight bearing Home Medications: Medications to take at Discharge sertraline 100 mg tablet 100 mg PO DAILY 01/06/19 Nifedipine [Procardia Xl] 30 mg PO DAILY #30 tab.er.24 05/15/19 Dicyclomine HCl [Bentyl] 20 mg PO Q4H PRN PRN #20 cap 06/22/19 Omeprazole 40 mg PO DAILY 06/22/19 proMETHazine tablet [Phenergan tablet] 25 mg PO Q6H PRN PRN #12 tab 06/22/19 Fenofibrate [Tricor] 145 mg PO DAILYCM #30 tab 06/25/19 Oxycodone [Oxyir] 5 - 10 mg PO Q6H PRN PRN 7 Days #14 tab 06/25/19 Following Prescrptions Were Given to Patient: Oxycodone [Oxyir] 5 - 10 mg PO Q6H PRN PRN 7 Days #14 tab PRN Reason: Pain Score 1-1010 Transmission Status: Received by [id number] Fenofibrate [Tricor] 145 mg PO DAILYCM #30 tab Transmission Status: Received by [facility] Primary Care Physician: Bryant Cardona MD [Primary Care Provider] - Please follow up with your Primary Care Physician in: in 2 weeks Please Follow Up With: Bryant Cardona MD Disposition: Home Minutes spent on discharge:: 31 Patient Condition:: Stable Medical Necessity - Tobacco Use Smoking Status: Never smoker Meaningful Use Info Meaningful Use Diagnoses (Choose all that apply): None applicable Inpatient E&M: 97959 [facility]
--- NOTE | 2019-06-26 14:35 | CASEMGMT ---
MONICA KELLER Discharge Follow-Up Phone Call. Lace: 15 Strata: 4 Discharge Date: 06/25/19 Adm Dx: Pancreatitis Attempted discharge follow-up phone call. No answer. Message left for pt to return call if she has any questions, concerns, needs. Phone number provided. Jacquie SANTOS RN CM
== END 2019-06-25 13:07 | disposition home or self-care (01) | DRG 282 ==
LOC: ED 21:30 → PCU 23:51
PROVIDERS: Admitting Provider Hospitalist; Emergency Provider Emergency Medicine; PCP Family Medicine; Referring Provider Hospitalist; Visit Provider Internal Medicine
DX: K85.90 Acute pancreatitis without necrosis or infection, unspecified (principal); E78.1 Pure hyperglyceridemia; K86.1 Other chronic pancreatitis; E11.9 Type 2 diabetes mellitus without complications; I10 Essential (primary) hypertension; E66.9 Obesity, unspecified; F32.9 Major depressive disorder, single episode, unspecified; Z79.899 Other long term (current) drug therapy; E87.5 Hyperkalemia; R16.2 Hepatomegaly with splenomegaly, not elsewhere classified; J98.11 Atelectasis; J21.9 Acute bronchiolitis, unspecified; E87.2 Acidosis; F41.9 Anxiety disorder, unspecified; K21.9 Gastro-esophageal reflux disease without esophagitis; Z68.41 Body mass index [BMI] 40.0-44.9, adult; R10.84 Generalized abdominal pain; R74.8 Abnormal levels of other serum enzymes
CPT/HCPCS: 36415; 74176; 80048; 80053; 82962; 83036; 83690; 84478; 84703; 85025; 96372; 97802; 99282; 99283; J7030; A4216; J2405

== ENCOUNTER 2019-07-19 20:57 | Emergency (ER) | payer MEDICAID, SELFPAY ==
[2019-07-19 20:58] VITALS: BP 128/98; PULSE 91; RESP 18; TEMP 37.1; O2SAT 94; BMI 42.5
[2019-07-19] MEDS: 0.9% Normal Saline 1,000 ML 1000 ML IV (21:56)
[2019-07-19] MEDS: Ondansetron 4 MG/2 ML Vial IV (21:56)
[2019-07-19] MEDS: Ketorolac 30 MG/ML Syringe IV (21:58)
[2019-07-19 22:09] LABS: Absolute Lymphocyte Count 2.05 X10^3/uL (0.83-4.51); Absolute Neutrophil Count 3.8 X10^3/uL (2.0-7.7); Basophil# 0.02 X10^3/uL; Basophil% 0.3 % (0-1); Eosinophil# 0.17 X10^3/uL; Eosinophils% 2.6 % (0-5); Hematocrit 37.5 % (37-47); Hemoglobin 13.6 g/dL (12.0-15.0); Lymphocyte # 2.05 X10^3/ul (4.0); Lymphocyte % 31.8 % (19-41); Mean Corp Hgb Conc 36.3 g/dL (32-36); Mean Corpuscular Hgb 30.3 pg (27.0-32.0); Mean Corpuscular Volume 83.5 fL (81-99); Mean Platelet Vol. 10.3 fl (6.2-12.0); Monocyte# 0.34 X10^3/uL; Monocyte% 5.3 % (0-10); NRBC Flagged by Analyzer 0 % (0-5); Neutrophil # 3.83 X10^3/uL (2.7-7.7); Neutrophil % 59.5 % (47-70); Platelet Count 219 K/mm3 (150-450); RBC Distribution Width CV 14.8 % (11.6-14.6); RBC Distribution Width SD 45.3 fl (35.1-43.9); Red Blood Count 4.49 M/mm3 (4.2-5.4); White Blood Count 6.4 K/mm3 (4.4-11.0)
[2019-07-19 22:39] LABS: Internal QC Validated? YES +Cl - CLEAR BKGD
[2019-07-19 22:40] LABS: Pregnancy, Serum, hCG Quali. NEGATIVE Negative
[2019-07-19 23:55] LABS: AST(SGOT) 13 U/L (15-37); Alanine Aminotransfer ALT/SGPT 63 U/L (13-56); Albumin, Serum 3.4 g/dL (3.2-5.0); Alkaline Phosphatase 75 U/L (45-117); Amylase 29 U/L (25-115); Anion Gap 16 (5-15); BUN 13 mg/dL (7-18); BUN/Creat Ratio 13.9 RATIO (10-20); Bilirubin, Direct 0.07 mg/dL (0.00-0.30); Calcium,Total 8.3 mg/dL (8.5-10.1); Chloride 106 mmol/L (98-107); Creatinine, Serum 0.94 mg/dL (0.55-1.02); EST Glomerular Filtration Rate 78 mL/min (>60); Est Glom Filt Rate - Afr Amer 95 mL/min (>60); Glucose 189 mg/dL (74-106); Lipase 168 U/L (73-393); Protein, Total 7.4 g/dL (6.4-8.2); Sodium Level 137 mmol/L (136-145)
--- NOTE | 2019-07-20 00:18 | ED.VISSUMM ---
- ER Visit Summary Date of Service: 07/20/19 Chief Complaint: Abdominal pain History of Present Illness: The patient is a [address] Cardona. She reports that she has had upper abdominal pain for the past 10 weeks. Is been worse over the past 2 weeks. Says sharp pain is 10 on 10 worsening a 10 currently. Is worsened by food. Is relieved by nothing including the oxycodone she is on at home. She is had nausea without vomiting. No diarrhea. Last bowel was today. She denies melena or hematochezia.. No dysuria or frequency. Patient reports that she is had an extensive evaluation for this previously. She has had a history of pancreatitis due to hypertriglyceridemia. She was started on an agent for this last month when she was admitted to the hospital. She has an appointment to see a travel specialist on July 31. Physical Examination: Vitals: Stable. Afebrile. General: Well-nourished and well-developed. Head: Normocephalic atraumatic. Neck: Supple, no lymphadenopathy. No JVD. Nontender. Cardiovascular: Regular rate and rhythm. No murmurs. Respiratory: No respiratory distress. Clear to auscultation bilaterally. Abdominal: Soft, mild tenderness to palpation in the left upper quadrant, nondistended, normal bowel sounds. No guarding, rebound, or peritoneal signs. Back: Nontender. Extremities: Nontender, no edema. Skin: Normal color, no rash. Neurologic: Alert and oriented ?3. Cranial nerves II through XII are intact. Normal strength and sensation. Psych: Normal affect. Test Results: CBC is normal. Chem-7 is marked for his a bicarb of 15, glucose of 189, calcium of 8.3. Her anion gap is 16. It appears that she has had low bicarbs multiple times in the past. At this point I do not have an explanation for that. LFTs are marked for an ALT of 63 and AST of 13. Her lipase is 168. Her amylase is 29. Her test is negative. Emergency Department Course and Treatment: Patient was initially given a dose of Toradol and Zofran IV. She continues to complain of pain. She was given a dose of morphine IV. I had a prolonged discussion with her at this time I do not have an explanation for her pain. She does understand this. She reports that she feels well and would like to go home. Treatment Plan: Patient be discharged with instructions to take in a clear liquid diet. Continue her oxycodone and Zofran that she already has. Follow-up with her primary care physician 1 to 2 days if not improving. Return to the emergency department for any worsening symptoms. Disposition: To home in improved and stable condition. Impression: 1. Abdominal pain, uncertain cause. This note was generated with [employer] dictation software. It may contain incorrect words, spelling, and punctuation that were not noted in review of the chart prior to signing ED Disposition - Plan for ED Patient: Instructions: ED Abdominal Pain Unkn Cause Fem Referrals: Bryant Cardona MD [Primary Care Provider] - 1-2 Days if not improving
[2019-07-20 00:24] LABS: Alcohol, Blood (Medical)-Serum < 3.0 mg/dL
[2019-07-20] MEDS: Morphine 4 MG/ML Syringe IV (00:35)
[2019-07-20 00:49] VITALS: BP 156/105; PULSE 80; RESP 16; O2SAT 95
== END 2019-07-20 00:51 | disposition home or self-care (01) ==
LOC: ED 21:22
PROVIDERS: Emergency Provider Emergency Medicine; PCP Family Medicine
DX: R10.12 Left upper quadrant pain (principal); E11.9 Type 2 diabetes mellitus without complications
CPT/HCPCS: 80048; 80076; 80320; 82150; 83690; 84703; 85025; 96361; 96374; 96375; 99283; J7030; A4216; G0480; J2405

== ENCOUNTER 2019-07-30 11:31 | Inpatient (IN) | payer MEDICAID, SELFPAY ==
[2019-07-30] VITALS (20 sets, daily range): BP systolic 123–153; BP diastolic 82–117; PULSE 69–142; RESP 16–40; TEMP 36.4–36.7; O2SAT 93–98; BMI 42.5; BMI 42.1; BMI 42.2
--- NOTE | 2019-07-30 11:51 | EKG12_ITS ---
Test Reason : SOB Blood Pressure : / mmHG Vent. Rate : 157 BPM Atrial Rate : 267 BPM P-R Int : 000 ms QRS Dur : 082 ms QT Int : 304 ms P-R-T Axes : 000 014 019 degrees QTc Int : 491 ms Atrial fibrillation Septal infarct , age undetermined Abnormal ECG Confirmed by SHIRLENE JORGENSEN ([id number]), editorial assistant ASAEL BOUDREAUX ([id number]) on 08/04/2019 1:23:02 PM Referred By: CHUCHO Confirmed By:SHIRLENE JORGENSEN
--- NOTE | 2019-07-30 11:52 | ED.VISSUMM ---
- ER Visit Summary Date of Service: 07/30/19 Chief Complaint: Nausea, heart pounding and shortness of breath History of Present Illness: The patient is a 23 F peripancreatitis, diabetes and high triglycerides. Prior cholecystectomy. Patient states she has not felt well since last night with nausea. She says her chest is thumping but denies chest pain. Thinks she may have pancreatitis again she has had it multiple times in the past. She denies vomiting, diarrhea or melena. No fever or chills. No dysuria. Physical Examination: Well-appearing young female no acute distress. Vital signs are stable and afebrile. Blood pressure is elevated 152/117. Pulse ox 97%. HEENT exam unremarkable. Neck nontender no lymphadenopathy. Lungs clear to auscultation. Heart regular rhythm no murmur. Abdomen is soft nontender normal bowel sounds no peritoneal signs. Patient is moving all 4 extremities. Calves are nontender without edema or cords. Neurologically she is awake and alert with no focal motor deficits. . Test Results: X-ray normal cardiac silhouette mediastinum portable 1 view read by myself and the radiologist. EKG shows atrial fibrillation rate of 157. White count of 7. Hemoglobin 15. Chemistries unremarkable normal creatinine gap. Glucose 182. Liver enzymes unremarkable. Troponin normal. Emergency Department Course and Treatment: Patient be treated with IV Zofran for nausea. Labs are being obtained along with an EKG. Treatment Plan: Patient was initially given a dose of Cardizem. Heart rate again went to 130. Was given a second dose of Cardizem. Heart rate again was going back up so she was started on a Cardizem drip. Hospitalist is on page for admission. Due to the patient's A. fib she was anticoagulant on Lovenox. We are going to obtain a d-dimer but we were unable due to her lipemia of blood they could run the test. We were going to do a CTA to rule out a PE for the cause of her new onset A. fib but she had a severe contrast reaction in the last several months it put her in kidney failure so we are not going to do the CTA. The hospitalist and I discussed it and she will be started on subcu Lovenox. Disposition: Admission Impression: New onset atrial fibrillation with rapid ventricular rate History of diabetes History of pancreatitis This note was generated with Dragon dictation software. It may contain incorrect words, spelling, and punctuation that were not noted in review of the chart prior to signing ED Disposition - Plan for ED Patient: Referrals: Bryant Cardona MD [Primary Care Provider] -
[2019-07-30] MEDS: Ondansetron 4 MG/2 ML Vial IV ×2 (12:06→17:43)
--- NOTE | 2019-07-30 12:08 | RAD_ITS ---
STUDY: X-RAY CHEST REASON FOR EXAM: Female, 23 years old. COMPLAINS OF DYSPNEA, and quot;HEART POUNDING and quot;, NAUSEA, ABD PAIN. TECHNIQUE: Single AP portable view of the chest. COMPARISON: Comparison is made with prior study dated June 06, 2019. FINDINGS: EKG electrodes are seen. Minimal residual increased linear markings seen in the left lower lobe at the site of the prior infiltrate. There is no demonstrated pleural abnormality. Normal size heart. Normal mediastinum and gwen. Normal visualized pulmonary arteries. Normal visualized aortic arch and descending thoracic aorta. Normal visualized thoracic spine. Normal visualized ribs, clavicles, and shoulders. There is no demonstrated abnormality of the visualized soft tissue structures of the upper abdomen. RAD/Chest 1 View (Portable) IMPRESSION: Minimal residual increased markings in the lingular segment of the left upper lobe at the site of prior infiltrate. Electronically Signed: Popeye Nichols, at 12:34 EDT , Service support ,
[2019-07-30] MEDS: dilTIAZem 25 MG/5 ML Vial IV BOLUS (12:44)
[2019-07-30 13:00] LABS: Absolute Neutrophil Count 4.4 X10^3/uL (2.0-7.7); Basophil# 0.03 X10^3/uL; Basophil% 0.4 % (0-1); Eosinophil# 0.15 X10^3/uL; Eosinophils% 2.1 % (0-5); Hematocrit 43.5 % (37-47); Lymphocyte % 29.6 % (19-41); Mean Corp Hgb Conc 34.5 g/dL (32-36); Mean Corpuscular Hgb 28.8 pg (27.0-32.0); Mean Corpuscular Volume 83.5 fL (81-99); Mean Platelet Vol. 11.3 fl (6.2-12.0); Monocyte# 0.34 X10^3/uL; Monocyte% 4.8 % (0-10); NRBC Flagged by Analyzer 0 % (0-5); Neutrophil # 4.44 X10^3/uL (2.7-7.7); Neutrophil % 62.7 % (47-70); POSITIVE MORPHOLOGY YES; Platelet Count 260 K/mm3 (150-450); RBC Distribution Width CV 14.6 % (11.6-14.6); RBC Distribution Width SD 43.9 fl (35.1-43.9); Red Blood Count 5.21 M/mm3 (4.2-5.4); White Blood Count 7.1 K/mm3 (4.4-11.0)
[2019-07-30 13:04] LABS: Differential Indicated SCAN CRITERIA MET
[2019-07-30 13:15] LABS: Thyroid Stim Hormone (TSH) 3.99 uIU/mL (0.358-3.74)
[2019-07-30] MEDS: dilTIAZem 25 MG/5 ML Vial 20 MG IV BOLUS (13:18)
[2019-07-30 13:20] LABS: ALB/GLOB Ratio 0.9 RATIO (0.9-2.4); AST(SGOT) 24 U/L (15-37); Alanine Aminotransfer ALT/SGPT 66 U/L (13-56); Albumin, Serum 3.6 g/dL (3.2-5.0); Alkaline Phosphatase 87 U/L (45-117); Anion Gap 13 (5-15); BUN 9 mg/dL (7-18); BUN/Creat Ratio 12.7 RATIO (10-20); Calcium,Total 8.5 mg/dL (8.5-10.1); Chloride 107 mmol/L (98-107); Creatinine, Serum 0.71 mg/dL (0.55-1.02); EST Glomerular Filtration Rate 108 mL/min (>60); Est Glom Filt Rate - Afr Amer 131 mL/min (>60); Estimated Creatinine Clearance 101.94 ml/min; Globulin 4.2 g/dL (2.2-4.2); Glucose 182 mg/dL (74-106); Lipase 111 U/L (73-393); Protein, Total 7.8 g/dL (6.4-8.2); Sodium Level 138 mmol/L (136-145)
[2019-07-30 13:50] LABS: Differential Comment SCANNED
[2019-07-30 14:24] LABS: Internal QC Validated? YES +Cl - CLEAR BKGD; Pregnancy, Serum, hCG Quali. NEGATIVE Negative
[2019-07-30] MEDS: Enoxaparin 100 MG/ML Syringe 108 MG SC (15:00)
--- NOTE | 2019-07-30 15:03 | HP.PCM_ITS ---
Problem List (1) History of pancreatitis Status: Chronic Comment: monitor PRN (2) Hypertension Status: Chronic Qualifiers: (3) Type 2 diabetes mellitus Status: Chronic (4) Hyperlipidemia Status: Chronic (5) Hypertriglyceridemia Status: Chronic (6) New onset A. fib with RVR Status: Acute (7) Depression Status: Chronic Qualifiers: Comment: zoloft, encourage counseling. History of Present Illness Date of Admission: 07/30/19 Chief Complaint: Palpitation, shortness of breath. The patient is a 23 year old F with past medical history as mentioned above presented to the emergency room because of palpitation and shortness of breath. Her symptoms started this morning around 7 AM that made her wake up from sleep, started having palpitation, heart was pounding strongly and was irregular, associated with shortness of breath, dizziness as well as nausea and without aggravating or relieving factors. Also, she complained of minimal chest discomfort, not real pain, just discomfort which started after the palpitation. She denies syncope or presyncope. She denied abdominal pain, nausea or vomiting. She denied fever or chills. In the emergency department, she was found to be in A. fib with RVR, heart rate was up to 157, blood pressure was stable, pulse ox was 97% on room air and she was afebrile. Her routine blood work was unremarkable except for blood glucose of 182. LFT was unremarkable as well as lipase. EKG revealed A. fib with RVR, rate of 157, no acute ischemic changes. Troponin was borderline elevated at 0.15. TSH was 3.99. Serum test was negative. Chest x-ray showed no acute infiltrate or consolidation. She is being admitted for new onset A. fib with RVR. Past Medical History Past Medical History (Chronic Problems): Chronic Problems (Last Updated 07/30/19 @ 15:[address] Magdy Conn MD) History of severe pre-eclampsia (Chronic) nl baseline labs History of pancreatitis (Chronic) monitor PRN Hypertension (Chronic) Type 2 diabetes mellitus (Chronic) Hyperlipidemia (Chronic) Hypertriglyceridemia (Chronic) Depression (Chronic) zoloft, encourage counseling. Medical History: Medical History (Last Updated 07/30/19 @ 15:[address] Magdy Conn MD) Depression (Chronic) F32.9 zoloft, encourage counseling. High triglycerides E78.1 Hx of transfusion of whole blood Z92.89 Hyperlipidemia E78.5 HTN (hypertension) I10 Allergies Gadolinium-MRI Contrast Medium [DYE] Allergy (Severe, Verified 07/30/19 11:34) KIDNEY FAILURE kidney failure Home Medications: Ambulatory Orders Medication Instructions Recorded sertraline 100 mg tablet 100 mg PO QHS 01/06/19 Omeprazole 40 mg PO QHS 06/22/19 proMETHazine tablet [Phenergan 25 mg PO Q6H PRN PRN #12 tab 06/22/19 tablet] Fenofibrate [Tricor] 145 mg PO QHS 07/29/19 Nifedipine [Procardia Xl] 30 mg PO QHS 07/29/19 Surgical History: Surgical History (Last Reviewed 06/23/19 @ 02:[address] Isaías Galdamez MD) History of carpal tunnel release of both wrists Z98.890 History of cholecystectomy Z90.49 History of endoscopy Z98.890 Surgical History: cholecystectomy, - Psychiatric History: Depression [employer] History: - Lives: With Family Smoking Status: Never smoker Tobacco Use: Non-smoker Alcohol: None Drugs: None - *Family History Maternal Family History: Family History (Last Reviewed 07/30/19 @ 15:[address] Magdy Conn MD) Mother Diabetes Grandmother Diabetes Grandfather Diabetes Father hyperlipidemia Unknown Depression Hypertension History Items: Diabetes Paternal Family History: Family History (Last Reviewed 07/30/19 @ 15:[address] Magdy Conn MD) Mother Diabetes Grandmother Diabetes Grandfather Diabetes Father hyperlipidemia Unknown Depression Hypertension Review of Systems Constitutional: Denies: Anorexia, Chills, Fever, Weakness Eyes: Denies: Blurred vision, Double vision, Drainage, Redness HEENT: Denies: Difficulty Hearing, Ear Pain, Eye Pain, Nasal Congestion, Sore Throat Cardiovascular: Reports: Chest Tightness, Light Headedness, Palpitations. De nies: Chest Pain, Edema, Heaviness, Orthopnea, Syncope Respiratory: Reports: Shortness of Breath. Denies: Cough, Pleuritic Pain, Sputum production, Wheezing Gastrointestinal: Reports: Nausea. Denies: Abdominal Pain, Constipation, Diarrhea, Vomiting Genitourinary: Denies: Dysuria, Frequency, Hematuria Musculoskeletal: Denies: Arm Pain, Back Pain, Foot Pain Skin: Denies: Dryness, Rash Neurological: Denies: Balance problems, Blurred vision, Double vision, Change in Speech, Slurred speech, Confusion, Numbness Psychiatric: Reports: Depression. Denies: Anxiety Endocrine: Denies: Change in Body Habitus, Polydipsia, Polyuria VTE Information - Inpt Only VTE Present on Admission: No VTE Mechan Device Prophylaxis: None VTE Pharm Prophylaxis ordered?: No Patient Problems: Active and Suspected Problems (Last Updated 07/30/19 @ 15:[address] Magdy Conn MD) New onset A. fib with RVR (Acute) - Physical Exam Vitals/I&O's: Vital Signs Temp Pulse Resp BP Pulse Ox 98.1 F 142 H 16 123/92 H 97 07/30/19 14:57 07/30/19 14:57 07/30/19 14:57 07/30/19 14:57 07/30/19 14:57 Oxygen Delivery Method Room Air Weight: 239 lb 13.807 oz Body Mass Index (BMI) 42.5 Finger Stick Blood Glucose 105 General: Alert, Oriented x3, Cooperative, No apparent distress HEENT: Atraumatic, PERRLA, EOMI, Normocephalic Oral: Moist Mucosa, No Gingival or Mucosal Lesions/ Ulcerations Neck: Supple, No JVD, Negative Carotid Bruits, Trachea Midline, Thyroid Normal Size and Texture Lungs: Clear to auscultation, Normal air movement, No rhonchi, No wheeze, No rales Cardiovascular: Normal S1, Normal S2, No murmurs, PMI Normal, Irregular Rate, Tachycardic Abdomen: Bowel Sounds Present, Soft, Non Tender, Non-Distended, No Hepato- splenomegaly, Obese Extremities: No clubbing, No cyanosis, No edema Skin: No rashes, No breakdown Lymphatic: No Cervical, Supraclavicular, or Inguinal Adenopathy Neurological: Cranial nerves II-XII grossly intact, Motor Exam 5/5 strength throughout Psych/Mental Status: Normal Affect, Appropriate, Alert and oriented to time, place, person, mood and affect Laboratory Results 07/30/19 12:03: WBC 7.1, RBC 5.21, Hgb 15.0, Hct 43.5, MCV 83.5, MCH 28.8, MCHC 34.5, RDW Std Deviation 43.9, RDW Coeff of Varun 14.6, Plt Count 260, MPV 11.3, Immature Gran % (Auto) 0.400, Neut % (Auto) 62.7, Lymph % (Auto) 29.6, [place] % (Auto) 4.8, Eos % (Auto) 2.1, Baso % (Auto) 0.4, Absolute Neuts (auto) 4.4, Absolute Lymphs (auto) 2.10, Nucleated RBC % 0, Differential Comment SCANNED 07/30/19 12:03: Sodium 138, Potassium 4.0, Chloride 107, Carbon Dioxide 18.0 L, Anion Gap 13, BUN 9, Creatinine 0.71, Estim Creat Clear Calc 101.94, Est GFR (MDRD) Af Amer 131, Est GFR (MDRD) Non-Af 108, BUN/Creatinine Ratio 12.7, Glucose 182 H, Calcium 8.5, Total Bilirubin 0.30, AST 24, ALT 66 H, Alkaline Phosphatase 87, Total Protein 7.8, Albumin 3.6, Globulin 4.2, Albumin/Globulin Ratio 0.9, Lipase 111 07/30/19 12:49: D-Dimer Quant (PE/DVT) Cancelled 07/30/19 12:49: Troponin I < 0.150 H, TSH 3.99 H 07/30/19 13:40: Serum , Qual NEGATIVE Clinical Impression(s) from Imaging Studies Chest X-Ray 07/30/19 12:08 IMPRESSION: Minimal residual increased markings in the lingular segment of the left upper lobe at the site of prior infiltrate. Electronically Signed: Popeye Nichols, at 12:34 EDT , Service support , Current Medications Diltiazem HCl 125 mg/ Dextrose 125 mls @ 5 mls/hr IV .Q25H BORIS; Protocol Last Admin: 07/30/19 14:57 Dose: 5 mg/hr, 5 mls/hr Documented by: Assessment/Plan All Active Problems (Last Updated 07/30/19 @ 15:[address] Magdy Conn MD) New onset A. fib with RVR (Acute) This is a 23 years old female patient presented to the emergency room because of palpitation, shortness of breath and nausea and she was found to have new onset A. fib with RVR and she is being admitted for evaluation and treatment. #1 new onset A. fib with RVR: EKG revealed A. fib with RVR, rate has been in the 150s, received with IV Cardizem bolus x2 and remained with fast heart rate. Started on IV Cardizem drip. Later, she was converted back to sinus rhythm. Troponin is minimally elevated. Blood pressure stable. Serum electrolytes are within normal limits. Her [id number] score is 3, she is a candidate for anticoagulation. Plan: Admit to PCU, cardiac monitoring, serial cardiac enzymes, continue IV Cardizem drip, 2D echocardiogram, start therapeutic Lovenox twice daily, check serum magnesium, 3 T3, free and total T4, cardiology consult, repeat CBC and BMP tomorrow morning. #2 type 2 diabetes mellitus: Currently not on medications. Blood glucose is 182 mg/dL. Plan: ADA diet, Accu-Cheks, sliding scale, check hemoglobin A1c. #3 hypertension: Blood pressure stable, continue nifedipine. #4 hyperlipidemia/hypertriglyceridemia: Continue TriCor. #5 history of pancreatitis: Denied abdominal pain, lipase and LFT was unremarkable. #6 depression: Continue sertraline. #7 DVT prophylaxis: She will be on Lovenox twice a day for anticoagulation. This note was generated with [employer] dictation software. It may contain incorrect words, spelling, and punctuation that were not noted in checking the note before signing. Inpatient E&M: 81257 Init Hosp L3
--- NOTE | 2019-07-30 15:13 | CON.PCM_ITS ---
Reason for Consult Date of Consultation: 07/30/19 Reason for Consultation: New onset atrial fibrillation History of Present Illness: The patient is a 23 year old F morbidly obese diabetic female with hypertriglyceridemia, no previous known cardiac history, no previous atrial fibrillation, never been tested for obstructive sleep apnea, who was in normal state of health up until this morning at around 7 AM when she developed rapid palpitations, shortness of breath, and chest pain. This persisted all day, finally seeking medical attention at [facility] ER. Initially her EKG was performed which shows atrial fibrillation with rapid ventricular response in the 150s. The patient received IV bolus of Cardizem with minimal improvement and a Cardizem drip was started. Upon my arrival into the emergency room the patient was still in atrial fibrillation with rapid ventricular response at a rate of around 143 bpm, and while we were talking converted back to normal sinus rhythm at a rate of around 80 to 90 bpm. Patient symptoms resolved. She also has a history of acute renal insufficiency after IV contrast dye several years ago. Patient denies any long car rides, long plane rides, or immobility recently. She denies any fevers, chills, previous atrial fibrillation, TIA or CVA. Patient is 93% on room air. EKG to document her sinus rhythm is pending. [] Past Medical History Allergies/Adverse Reactions: Allergies Gadolinium-MRI Contrast Medium [DYE] Allergy (Severe, Verified 07/30/19 11:34) KIDNEY FAILURE kidney failure Home Medications: Ambulatory Orders Medication Instructions Recorded sertraline 100 mg tablet 100 mg PO QHS 01/06/19 Omeprazole 40 mg PO QHS 06/22/19 proMETHazine tablet [Phenergan 25 mg PO Q6H PRN PRN #12 tab 06/22/19 tablet] Fenofibrate [Tricor] 145 mg PO QHS 07/29/19 Nifedipine [Procardia Xl] 30 mg PO QHS 07/29/19 Past Medical History (Chronic Problems): Chronic Problems (Last Updated 07/30/19 @ 15:[address] Magdy Conn MD) History of severe pre-eclampsia (Chronic) nl baseline labs History of pancreatitis (Chronic) monitor PRN Hypertension (Chronic) Type 2 diabetes mellitus (Chronic) Hyperlipidemia (Chronic) Hypertriglyceridemia (Chronic) Depression (Chronic) zoloft, encourage counseling. 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 Magdy Conn MD) Mother Diabetes Grandmother Diabetes Grandfather Diabetes Father hyperlipidemia Unknown Depression Hypertension History Items: Diabetes Paternal Family History: Family History (Last Reviewed 07/30/19 @ 15:[address] Magdy Conn MD) Mother Diabetes Grandmother Diabetes Grandfather Diabetes Father hyperlipidemia Unknown Depression Hypertension History Items: Diabetes Lives: With Family Smoking Status: Never smoker Tobacco Use: Non-smoker Alcohol: None Drugs: None Review of Systems - Review of Systems General: Denies: Fever, Night Sweats, Fatigue Cardiovascular: Reports: Chest Discomfort, Chest Discomfort at Rest, Palpitations. Denies: Shortness of Breath, Orthopnea, PND, Peripheral Edema, Lightheadedness, Dizziness, Near Syncope, Syncope Respiratory: Denies: Cough, Sputum Production, Hemoptysis Gastrointestinal: Denies: Hematemesis, Hematochezia, Melena Genitourinary: Denies: Dysuria, Hematuria Skin: Denies: Rash Subjectve: Patient laying in bed, no acute distress. Objective: Vital Signs Temp Pulse Resp BP Pulse Ox 98.1 F 142 H 16 123/92 H 97 07/30/19 14:57 07/30/19 14:57 07/30/19 14:57 07/30/19 14:57 07/30/19 14:57 Oxygen Delivery Method Room Air Weight: 239 lb 13.807 oz Body Mass Index (BMI) 42.5 Finger Stick Blood Glucose 105 General: Awake, Alert, Oriented x 3 HEENT: PERRL, EOMI, Sclera Non Icteric Neck: Supple, Good ROM, No Lymph Node Enlargement Lungs: Clear to auscultation Cardiovascular: Regular Rhythm, Normal S1, Normal S2, No Murmurs, No Rubs, No Gallops Vascular: No Carotid Bruits, Normal Femoral Pulses, Normal Radial Pulses, Normal Dorsalis Pedal Pulse, Normal Posterior Tibial Pulses Abdomen: Bowel Sounds Present, Soft, Non Tender, No HSM, No Organomegaly Extremities: No Cyanosis, No Clubbing, No edema Neurological: No Focal Motor or Sensory Deficit 07/30/19 12:03: WBC 7.1, RBC 5.21, Hgb 15.0, Hct 43.5, MCV 83.5, MCH 28.8, MCHC 34.5, Plt Count 260, MPV 11.3, Immature Gran % (Auto) 0.400, Neut % (Auto) 62.7, Lymph % (Auto) 29.6, [place] % (Auto) 4.8, Eos % (Auto) 2.1, Baso % (Auto) 0.4, Absolute Neuts (auto) 4.4, Nucleated RBC % 0 07/30/19 12:03: Sodium 138, Potassium 4.0, Chloride 107, Carbon Dioxide 18.0 L, Anion Gap 13, BUN 9, Creatinine 0.71, Est GFR (MDRD) Af Amer 131, Est GFR (MDRD) Non-Af 108, BUN/Creatinine Ratio 12.7, Glucose 182 H, Calcium 8.5, Total Bilirubin 0.30 07/30/19 12:49: D-Dimer Quant (PE/DVT) Cancelled 07/30/19 12:49: Troponin I < 0.150 H Rhythm: EKG: As above ECHO: Pending Stress Test: Pending Cardiac Cath: PCI: CT Surgery: Holter monitor: EPS: PPM: CXR: Chest CT Scan: Assessment/Plan 1. Atrial fibrillation: The patient presents with new onset newly diagnosed atrial fibrillation with rapid reticular response which converted to normal sinus rhythm while on an IV Cardizem drip. In addition the patient has signs and symptoms of possible obstructive sleep apnea but is never been tested. I also recommend the patient undergo a 2D echo with Doppler to document her LV function and more poorly her pulmonary pressures. I would recommend that she be evaluated for obstructive sleep apnea as an outpatient she complains of daytime somnolence, waking up tired all the time, and able to take a nap without much difficulty. I would recommend the patient be ruled out for myocardial infarction with troponins x3, and if this is negative would recommend that she undergo a [facility] echocardiogram tomorrow. If this is grossly abnormal for ischemia, she may require diagnostic coronary angiogram. I recommend continuing subcu Lovenox while she is in the hospital given her at rial fibrillation. We will hold off on full anticoagulation until after her cardiac work-up has been obtained. 2. Hyperlipidemia: Recommend obtaining a fasting profile. 3. Obstructive sleep apnea: Recommend she obtain a sleep study as an outpatient as she may have undiagnosed obstructive sleep apnea which may be problematic with her atrial fibrillation. 4. Discussed with Dr. Conn. Thank you very much for the opportunity participate in the cardiac care of your patient. Consultation time took place between 3 and 3:30 PM. Inpatient E&M: 49287 Init Hosp L2
--- NOTE | 2019-07-30 15:44 | ECHOCS_ITS ---
Reason For Study: AFIB/FLUTTER Procedure This was a 2D Doppler, Color Flow transthoracic echocardiogram. The study was technically difficult. Due to body habitus and patient unable to lie down due to pain. The study was technically limited. Contrast injection was performed. Exam performed portable in patient room. Left Ventricle Normal LV size. The estimated ejection fraction is 65 %. No evidence for diastolic dysfunction. No regional wall motion abnormalities noted. Right Ventricle Normal RV size. Normal systolic function. Atria Normal left atrium. Normal right atrium. No doppler evidence for ASD. Mitral Valve There is no mitral valve stenosis. No mitral valve insufficiency. Tricuspid Valve There is no tricuspid stenosis. Unable to estimate RV systolic pressure due to insufficient tricuspid regurgitant envelope. No tricuspid valve insufficiency. Aortic Valve Trisinus/trileaflet aortic valve. There is no aortic stenosis. Trivial aortic valve insufficiency. Pulmonic Valve There is no pulmonic valvular stenosis. No pulmonic valve insufficiency. Great Vessels Normal aortic root. Pericardium/Pleural No pericardial effusion. Medication Diluted definity 4.0ml given slow IV push to enhance endocardial definition. MMode/2D Measurements & Calculations LVIDd: 4.2 cm IVSd: 0.94 cm Ao root diam: 3.1 cm LVIDs: 2.8 cm LVPWd: 1.3 cm FS: 33.7 % LAV(MOD-sp4): 38.6 ml LA A4 area: 14.4 cm2 LA dimension(2D): 3.7 cm Time Measurements MV dec time: 0.14 sec Doppler Measurements & Calculations MV E max krish: 64.1 cm/sec Lat Peak E' Krish: 8.3 cm/sec Med Peak E' Krish: 5.6 cm/sec MV A max krish: 86.1 cm/sec E/E' lat: 7.8 E/E' med: 11.4 MV E/A: 0.74 Ao V2 max: 181.5 cm/sec LV V1 max: 92.6 cm/sec PA V2 max: 97.1 cm/sec Ao max P.2 mmHg LV V1 max P.4 mmHg Ao V2 mean: 131.6 cm/sec LV V1 mean P.2 mmHg Ao mean P.5 mmHg LV V1 mean: 72.6 cm/sec Ao V2 VTI: 28.1 cm LV V1 VTI: 15.3 cm TR max krish: 215.5 cm/sec TR max P.6 mmHg Interpretation Summary The study was technically difficult. Contrast injection was performed. The estimated ejection fraction is 65 %. No evidence for diastolic dysfunction. Trivial aortic valve insufficiency. The study was technically difficult. Contrast injection was performed. Ordering Physician: Magdy Conn Referring Physician: Bryant Cardona Performed By: Shamika Lee RDCS, RVT
[2019-07-30 17:10] LABS: Cholesterol 173 mg/dL (200); Free T3 3.4 pg/mL (2.18-3.98); High Density Lipoprotein 12 mg/dL; Magnesium 1.9 mg/dL (1.6-2.6); T4 Free Direct 0.82 ng/dL (0.76-1.46); T4 Total, Thyroxin 7.8 ug/dL (4.8-13.9); Triglycerides 1577 mg/dL
[2019-07-30 17:16] LABS: Bedside Glucose 116 mg/dL (70-110)
[2019-07-30 17:52] LABS: D-Dimer Quantitative (DVT/PE) 1.06 FEU/ug/m (0.27-0.49)
--- NOTE | 2019-07-30 18:57 | EKG12_ITS ---
Test Reason : CP Blood Pressure : / mmHG Vent. Rate : 084 BPM Atrial Rate : 084 BPM P-R Int : 164 ms QRS Dur : 086 ms QT Int : 386 ms P-R-T Axes : 044 029 036 degrees QTc Int : 456 ms Normal sinus rhythm Septal infarct , age undetermined Abnormal ECG When compared with ECG of 30-JUL-2019 15:15, MANUAL COMPARISON REQUIRED, DATA IS UNCONFIRMED Confirmed by PERRY ARCINIEGA, ELISA ([id number]), medical editor ASAEL BOUDREAUX ([id number]) on 08/05/2019 4:03:51 PM Referred By: LIYA Confirmed By:ELISA AMADOR MD
[2019-07-30] MEDS: Morphine 2 MG/ML Syringe IV (19:04)
--- NOTE | 2019-07-30 19:39 | NM_ITS ---
CLINICAL: 23-year-old female with reported history of shortness of breath and elevation of the d-dimer. VENTILATION-PERFUSION LUNG SCINTIGRAPHY COMPARISON: Plain film chest radiograph 07/30/2019 FINDINGS: The patient was administered 50.0 mCi 99m Tc DTPA aerosol. The aerosol ventilation study demonstrates heterogeneous ventilation identified throughout the bilateral lung angulo without corresponding radiographic changes defined on plain film chest x-ray dated 07/30/2019. Central clumping of the aerosol is noted in the bilateral hemithorax. Following the intravenous administration of 5.2 mCi of 99m Tc MAA the pulmonary perfusion study reveals uniform perfusion throughout both lung angulo. There are no segmental or subsegmental perfusion defects identified. There are no ventilation-perfusion mismatches observed. NM/Lung Scan Vent/Perf IMPRESSION: 1. NORMAL 99m Tc MAA pulmonary perfusion imaging examination, according to PIOPED II interpretive criteria. (Sotsman et al, Radiology 246: 941, 2008 Sopablo et al, J Nucl Med 49: 1741, 2008). 2. Central clumping of the aerosol may be secondary to obstructive airway mechanics and or clinical tachypnea. Electronically Signed: Dequan Pérez DO at 14:27 EDT Tel , Service support ,
[2019-07-30] MEDS: Ketorolac 30 MG/ML Syringe IV (20:09)
[2019-07-30] MEDS: 0.9% Saline Lock 10 ML Syringe IV ×2 (20:12→22:05)
[2019-07-30 20:24] LABS: Erythrocyte Sedimentation Rate 5 mm/hr (0-20)
--- NOTE | 2019-07-30 20:25 | EKG12_ITS ---
Test Reason : RYTHUM CHANGE Blood Pressure : / mmHG Vent. Rate : 089 BPM Atrial Rate : 089 BPM P-R Int : 162 ms QRS Dur : 076 ms QT Int : 368 ms P-R-T Axes : 044 017 026 degrees QTc Int : 447 ms Normal sinus rhythm Septal infarct , age undetermined Abnormal ECG Confirmed by SHIRLENE JORGENSEN ([id number]), image editor ASAEL BOUDREAUX ([id number]) on 08/04/2019 1:24:36 PM Referred By: JAMEEL Confirmed By:SHIRLENE JORGENSEN
[2019-07-30 21:21] LABS: Lipase 7926 U/L (73-393)
[2019-07-30 21:22] LABS: CRP 3.35 mg/L (0.0-3.0)
[2019-07-30 21:26] LABS: Bedside Glucose 168 mg/dL (70-110)
[2019-07-30] MEDS: NIFEdipine 30 MG Tablet PO (21:33)
[2019-07-30] MEDS: Insulin Lispro 100 UNIT/ML INSULN.PEN SC (21:33)
[2019-07-30] MEDS: Sertraline 100 MG Tablet PO (21:33)
[2019-07-30] MEDS: Fenofibrate 145 MG Tablet PO (21:33)
[2019-07-30] MEDS: Pantoprazole Sodium 40 MG Tablet PO (21:34)
--- NOTE | 2019-07-30 21:52 | PCM.HOSP.N ---
Hospitalist Note Per nursing, patient with severe abdominal pain unrelieved with the ketorolac as well as morphine. Lipase has gone from 111 to 7000. Plan is to transition patient over to hydromorphone 0.5 mg every 3 hours as needed plus IV fluids and as well as checking a CT of the abdomen pelvis.
[2019-07-30] MEDS: 0.9% Normal Saline 1,000 ML 200 ML IV (22:05)
[2019-07-30] MEDS: HYDROmorphone 0.5 MG/0.5 ML SYRINGE IV (22:06)
--- NOTE | 2019-07-30 23:01 | NURSING ---
oxygen reapplied at 2L/NC due to pulse ox on room air 86%.
[2019-07-31] VITALS (21 sets, daily range): BP systolic 93–147; BP diastolic 61–95; PULSE 71–120; RESP 12–37; TEMP 36.6–37; O2SAT 91–98
[2019-07-31] MEDS: 0.9% Saline Lock 10 ML Syringe IV ×7 (00:51→23:43)
[2019-07-31] MEDS: Zolpidem Tartrate 5 MG Tablet PO (00:51)
[2019-07-31] MEDS: HYDROmorphone 0.5 MG/0.5 ML SYRINGE IV ×4 (00:52→07:49)
[2019-07-31] MEDS: 0.9% Normal Saline 1,000 ML 200 ML IV ×2 (03:01→07:54)
[2019-07-31] MEDS: Ondansetron 4 MG/2 ML Vial IV (03:02)
[2019-07-31 05:18] LABS: Absolute Lymphocyte Count 0.84 X10^3/uL (0.83-4.51); Absolute Neutrophil Count 10.4 X10^3/uL (2.0-7.7); Basophil# 0.03 X10^3/uL; Basophil% 0.3 % (0-1); Hematocrit 44.2 % (37-47); Hemoglobin 15.1 g/dL (12.0-15.0); Lymphocyte # 0.84 X10^3/ul (4.0); Lymphocyte % 7.2 % (19-41); Mean Corp Hgb Conc 34.2 g/dL (32-36); Mean Corpuscular Hgb 28.9 pg (27.0-32.0); Mean Corpuscular Volume 84.5 fL (81-99); Mean Platelet Vol. 10.1 fl (6.2-12.0); Monocyte# 0.41 X10^3/uL; Monocyte% 3.5 % (0-10); NRBC Flagged by Analyzer 0 % (0-5); Neutrophil # 10.37 X10^3/uL (2.7-7.7); Neutrophil % 88.7 % (47-70); Platelet Count 270 K/mm3 (150-450); RBC Distribution Width CV 15.1 % (11.6-14.6); Red Blood Count 5.23 M/mm3 (4.2-5.4); White Blood Count 11.7 K/mm3 (4.4-11.0)
--- NOTE | 2019-07-31 05:55 | EKG12_ITS ---
Test Reason : AM Blood Pressure : / mmHG Vent. Rate : 088 BPM Atrial Rate : 088 BPM P-R Int : 158 ms QRS Dur : 090 ms QT Int : 400 ms P-R-T Axes : 035 034 030 degrees QTc Int : 484 ms Normal sinus rhythm Septal infarct , age undetermined Abnormal ECG When compared with ECG of 30-JUL-2019 18:57, MANUAL COMPARISON REQUIRED, DATA IS UNCONFIRMED Confirmed by PERRY ARCINIEGA, ELISA ([id number]), news editor ASAEL BOUDREAUX ([id number]) on 08/05/2019 3:47:32 PM Referred By: LIYA Confirmed By:ELISA AMADOR MD
[2019-07-31] MEDS: Insulin Lispro 100 UNIT/ML INSULN.PEN SC (06:19)
[2019-07-31 06:26] LABS: ALB/GLOB Ratio 0.8 RATIO (0.9-2.4); AST(SGOT) 36 U/L (15-37); Alanine Aminotransfer ALT/SGPT 56 U/L (13-56); Albumin, Serum 3.2 g/dL (3.2-5.0); Alkaline Phosphatase 72 U/L (45-117); Anion Gap 10 (5-15); BUN 15 mg/dL (7-18); BUN/Creat Ratio 13.3 RATIO (10-20); Calcium,Total 7.4 mg/dL (8.5-10.1); Chloride 106 mmol/L (98-107); Creatinine, Serum 1.13 mg/dL (0.55-1.02); EST Glomerular Filtration Rate 63 mL/min (>60); Est Glom Filt Rate - Afr Amer 76 mL/min (>60); Estimated Creatinine Clearance 64.05 ml/min; Globulin 3.9 g/dL (2.2-4.2); Glucose 224 mg/dL (74-106); Lipase 7670 U/L (73-393); Potassium 5.4 mmol/L (3.5-5.1); Protein, Total 7.1 g/dL (6.4-8.2); Sodium Level 137 mmol/L (136-145)
[2019-07-31 06:35] LABS: Bedside Glucose 205 mg/dL (70-110)
[2019-07-31] MEDS: Enoxaparin 120 MG/0.8 ML Syringe 110 MG SC (07:49)
--- NOTE | 2019-07-31 08:40 | PCM.PN.CARD ---
Subjectve: Patient seen and examined this morning, overnight she developed evidence of pancreatitis. She is currently n.p.o. and taking ice chips. Telemetry negative. Troponin 0 0.015. Stress test canceled this morning due to pancreatitis. Objective: Vital Signs Temp Pulse Resp BP Pulse Ox 98.1 F 87 24 H 141/92 H 95 07/31/19 06:49 07/31/19 06:49 07/31/19 06:49 07/31/19 06:49 07/31/19 08:02 Oxygen Flow Rate (L/min) 2 Oxygen Delivery Method Room Air Weight: 238 lb Body Mass Index (BMI) 42.1 Finger Stick Blood Glucose 105 Intake and Output for Last 24 Hours 07/29/19 07/30/19 07/31/19 23:59 23:59 23:59 Intake Total 653.58 / 658.58 1656.75 / 1656.75 Output Total 450 / 450 100 / 100 Balance 203.58 / 208.58 1556.75 / 1556.75 General: Awake, Alert, Oriented x 3 HEENT: PERRL, EOMI, Sclera Non Icteric Neck: Supple, Good ROM, No Lymph Node Enlargement Lungs: Clear to auscultation Cardiovascular: Regular Rhythm, Normal S1, Normal S2, No Murmurs, No Rubs, No Gallops Vascular: No Carotid Bruits, Normal Femoral Pulses, Normal Radial Pulses, Normal Dorsalis Pedal Pulse, Normal Posterior Tibial Pulses Abdomen: Bowel Sounds Present, Soft, Non Tender, No HSM, No Organomegaly Extremities: No Cyanosis, No Clubbing, No edema Neurological: No Focal Motor or Sensory Deficit 07/30/19 12:03: WBC 7.1, RBC 5.21, Hgb 15.0, Hct 43.5, MCV 83.5, MCH 28.8, MCHC 34.5, Plt Count 260, MPV 11.3, Immature Gran % (Auto) 0.400, Neut % (Auto) 62.7, Lymph % (Auto) 29.6, [place] % (Auto) 4.8, Eos % (Auto) 2.1, Baso % (Auto) 0.4, Absolute Neuts (auto) 4.4, Nucleated RBC % 0 07/30/19 12:03: Sodium 138, Potassium 4.0, Chloride 107, Carbon Dioxide 18.0 L, Anion Gap 13, BUN 9, Creatinine 0.71, Est GFR (MDRD) Af Amer 131, Est GFR (MDRD) Non-Af 108, BUN/Creatinine Ratio 12.7, Glucose 182 H, Calcium 8.5, Total Bilirubin 0.30 07/30/19 12:49: D-Dimer Quant (PE/DVT) Cancelled 07/30/19 12:49: Troponin I < 0.150 H 07/30/19 12:49: Magnesium 1.9, Triglycerides 1577 H, Cholesterol 173, LDL Cholesterol TNP, VLDL Cholesterol TNP, HDL Cholesterol 12 L 07/30/19 12:49: D-Dimer Quant (PE/DVT) Cancelled 07/30/19 12:49: Hemoglobin A1c 7.0 H 07/30/19 12:49: D-Dimer Quant (PE/DVT) 1.06 H* 07/30/19 16:38: Troponin I < 0.015 07/30/19 19:25: Troponin I < 0.015 07/31/19 05:13: WBC 11.7 H, RBC 5.23, Hgb 15.1 H, Hct 44.2, MCV 84.5, MCH 28.9, MCHC 34.2, Plt Count 270, MPV 10.1, Immature Gran % (Auto) 0.300, Neut % (Auto) 88.7 H, Lymph % (Auto) 7.2 L, [place] % (Auto) 3.5, Eos % (Auto) 0.0, Baso % (Auto) 0.3, Absolute Neuts (auto) 10.4 H, Nucleated RBC % 0 07/31/19 05:13: Sodium 137, Potassium 5.4 H, Chloride 106, Carbon Dioxide 21.0, Anion Gap 10, BUN 15, Creatinine 1.13 H, Est GFR (MDRD) Af Amer 76, Est GFR (MDRD) Non-Af 63, BUN/Creatinine Ratio 13.3, Glucose 224 H, Calcium 7.4 L, Total Bilirubin 0.50 Rhythm: EKG: ECHO: Stress Test: Cardiac Cath: PCI: CT Surgery: Holter monitor: EPS: PPM: CXR: Chest CT Scan: Medical Necessity - Tobacco Use Smoking Status: Never smoker Tobacco Use: Non-smoker Assessment/Plan 1. Atrial fibrillation: The patient presents with new onset newly diagnosed atrial fibrillation with rapid reticular response which converted to normal sinus rhythm while on an IV Cardizem drip. In addition the patient has signs and symptoms of possible obstructive sleep apnea but is never been tested. I also recommend the patient undergo a 2D echo with Doppler to document her LV function and more poorly her pulmonary pressures. I would recommend that she be evaluated for obstructive sleep apnea as an outpatient she complains of daytime somnolence, waking up tired all the time, and able to take a nap without much difficulty. Patient was ruled out for myocardial infarction x2, however she has developed pancreatitis which precludes a stress test at this time. I would however recommend a stress test when she has recovered from her pancreatitis. She has had no further atrial fibrillation on her telemetry, and she has maintained normal sinus rhythm. She converted while on IV Cardizem drip. This most likely was exacerbated by her acute pancreatitis. I recommend that she discontinue her nifedipine, and switch to Cardizem CD 120 mg p.o. daily and titrate up from there. As the patient is back in sinus rhythm and has pancreatitis, in order to avoid hemorrhagic conversion of her pancreatitis, I recommend discontinuation of her subcu Lovenox. I will defer to the primary service with respect to DVT prophylaxis. 2. Hyperlipidemia: Recommend obtaining a fasting profile. 3. Obstructive sleep apnea: Recommend she obtain a sleep study as an outpatient as she may have undiagnosed obstructive sleep apnea which may be problematic with her atrial fibrillation. 4. Discussed with Dr. Conn. Inpatient E&M: 61552 Subs Hosp L2
--- NOTE | 2019-07-31 09:41 | PCM.PROGNOTE ---
Patient Problems: Active and Suspected Problems (Last Updated 07/30/19 @ 15:[address] Magdy Conn MD) Acute on chronic pancreatitis (Acute) New onset A. fib with RVR (Acute) Subjective: Chief complaint: Follow-up after admission for new onset Neftaly. jordan with RVR, developed abdominal pain after admission she was found to have acute on chronic pancreatitis. Patient seen and examined. Yesterday after admission, patient developed upper abdominal pain. Repeat EKG done and revealed normal sinus rhythm, minimal ST elevation on leads I and II. Reviewed by cardiology, acute MO ruled out. Repeat lipase was elevated. Today, she still complaining of abdominal pain but with minimal improvement, complains of nausea as well. She was kept on n.p.o. since last night. She is afebrile, blood pressure and heart rate are stable, pulse ox is 96% on 2 L. - Physical Exam Vitals/I&O's: Vital Signs Temp Pulse Resp BP Pulse Ox 98.1 F 87 24 H 141/92 H 95 07/31/19 06:49 07/31/19 06:49 07/31/19 06:49 07/31/19 06:49 07/31/19 08:02 Oxygen Flow Rate (L/min) 2 Oxygen Delivery Method Room Air Weight: 238 lb Body Mass Index (BMI) 42.1 Finger Stick Blood Glucose 105 Intake and Output for Last 24 Hours 07/29/19 07/30/19 07/31/19 23:59 23:59 23:59 Intake Total 653.58 / 658.58 1656.75 / 1656.75 Output Total 450 / 450 100 / 100 Balance 203.58 / 208.58 1556.75 / 1556.75 General: Alert, Oriented x3, Cooperative, - - Mild distress because of abdominal pain. HEENT: Atraumatic, PERRLA, EOMI, Normocephalic Oral: Moist Mucosa, No Gingival or Mucosal Lesions/ Ulcerations Neck: Supple, No JVD, Negative Carotid Bruits, Trachea Midline, Thyroid Normal Size and Texture Lungs: Clear to auscultation, Normal air movement, No rhonchi, No wheeze, No rales, Diminished Cardiovascular: Regular rate, Regular Rhythm, Normal S1, Normal S2, No murmurs, PMI Normal Abdomen: Bowel Sounds Present, Soft, Non-Distended, No Hepato-splenomegaly, Obese, Tender Extremities: No clubbing, No cyanosis, No edema Skin: No rashes, No breakdown Lymphatic: No Cervical, Supraclavicular, or Inguinal Adenopathy Neurological: Cranial nerves II-XII grossly intact, Neuro grossly intact Psych/Mental Status: Normal Affect, Appropriate, Alert and oriented to time, place, person, mood and affect Laboratory Results 07/30/19 12:03: WBC 7.1, RBC 5.21, Hgb 15.0, Hct 43.5, MCV 83.5, MCH 28.8, MCHC 34.5, RDW Std Deviation 43.9, RDW Coeff of Varun 14.6, Plt Count 260, MPV 11.3, Immature Gran % (Auto) 0.400, Neut % (Auto) 62.7, Lymph % (Auto) 29.6, Cole % (Auto) 4.8, Eos % (Auto) 2.1, Baso % (Auto) 0.4, Absolute Neuts (auto) 4.4, Absolute Lymphs (auto) 2.10, Nucleated RBC % 0, Differential Comment SCANNED 07/30/19 12:03: Sodium 138, Potassium 4.0, Chloride 107, Carbon Dioxide 18.0 L, Anion Gap 13, BUN 9, Creatinine 0.71, Estim Creat Clear Calc 101.94, Est GFR (MDRD) Af Amer 131, Est GFR (MDRD) Non-Af 108, BUN/Creatinine Ratio 12.7, Glucose 182 H, Calcium 8.5, Total Bilirubin 0.30, AST 24, ALT 66 H, Alkaline Phosphatase 87, Total Protein 7.8, Albumin 3.6, Globulin 4.2, Albumin/Globulin Ratio 0.9, Lipase 111 07/30/19 12:03: ESR 5 07/30/19 12:49: D-Dimer Quant (PE/DVT) Cancelled 07/30/19 12:49: Troponin I < 0.150 H, TSH 3.99 H 07/30/19 12:49: Magnesium 1.9, Triglycerides 1577 H, Cholesterol 173, LDL Cholesterol TNP, VLDL Cholesterol TNP, HDL Cholesterol 12 L, Free T4 0.82, Thyroxine (T4) 7.8, Free T3 pg/dL 3.4 07/30/19 12:49: D-Dimer Quant (PE/DVT) Cancelled 07/30/19 12:49: Hemoglobin A1c 7.0 H 07/30/19 12:49: D-Dimer Quant (PE/DVT) 1.06 H* 07/30/19 13:40: Serum , Qual NEGATIVE 07/30/19 16:38: Troponin I < 0.015 07/30/19 17:06: POC Glucose 116 H 07/30/19 19:25: Troponin I < 0.015, Lipase 7926 H 07/30/19 19:25: C-React Prot Ext Range 3.35 H 07/30/19 21:23: POC Glucose 168 H 07/31/19 05:13: WBC 11.7 H, RBC 5.23, Hgb 15.1 H, Hct 44.2, MCV 84.5, MCH 28.9, MCHC 34.2, RDW Std Deviation 46.0 H, RDW Coeff of Varun 15.1 H, Plt Count 270, MPV 10.1, Immature Gran % (Auto) 0.300, Neut % (Auto) 88.7 H, Lymph % (Auto) 7.2 L, Cole % (Auto) 3.5, Eos % (Auto) 0.0, Baso % (Auto) 0.3, Absolute Neuts (auto) 10.4 H, Absolute Lymphs (auto) 0.84, Nucleated RBC % 0 07/31/19 05:13: Sodium 137, Potassium 5.4 H, Chloride 106, Carbon Dioxide 21.0, Anion Gap 10, BUN 15, Creatinine 1.13 H, Estim Creat Clear Calc 64.05, Est GFR (MDRD) Af Amer 76, Est GFR (MDRD) Non-Af 63, BUN/Creatinine Ratio 13.3, Glucose 224 H, Calcium 7.4 L, Total Bilirubin 0.50, AST 36, ALT 56, Alkaline Phosphatase 72, Total Protein 7.1, Albumin 3.2, Globulin 3.9, Albumin/Globulin Ratio 0.8 L, Lipase 7670 H 07/31/19 06:17: POC Glucose 205 H Clinical Impression(s) from Imaging Studies Current Medications Acetaminophen (Tylenol) 650 mg PO Q6H PRN PRN PRN Reason: Pain Score 1-10/Temp > 100.7 F Dextrose (D50w Syringe) 0 gm IV X1 PRN; Protocol PRN Reason: Hypoglycemia Diltiazem HCl (Cardizem Cd) 120 mg PO DAILY [facility] Fenofibrate (Tricor) 145 mg PO QHS [facility] Last Admin: 07/30/19 21:33 Dose: 145 mg Documented by: Glucagon () 1 mg IM .X1 PRN PRN Reason: Hypoglycemia Hydromorphone HCl (Dilaudid Inj) 1 mg IV Q3H PRN PRN PRN Reason: Pain Score 6-10/10 Sodium Chloride () 250 mls @ 15 mls/hr IV .[id number] PRN PRN Reason: Saline Flush Sodium Chloride () 250 mls @ 15 mls/hr IV .[id number] PRN PRN Reason: Additional IVPB Infusion Sodium Chloride () 1,000 mls @ 150 mls/hr IV .Q6H40M [facility] Last Admin: 07/31/19 07:54 Dose: 200 mls/hr Documented by: Insulin Human Lispro (Humalog Kwikpen (Bkc)) 0 unit SC ACHS [facility]; Protocol Last Admin: 07/31/19 06:19 Dose: 2 u Documented by: Ondansetron HCl (Zofran) 4 mg IV Q8H PRN PRN PRN Reason: NAUSEA/VOMITING Last Admin: 07/31/19 03:02 Dose: 4 mg Documented by: Pantoprazole Sodium (Protonix) 40 mg PO QHS [facility] Last Admin: 07/30/19 21:34 Dose: 40 mg Documented by: Senna/Docusate Sodium (Senokot-S, Dunia-Colace) 2 tablet PO BID PRN PRN PRN Reason: Constipation Sertraline HCl (Zoloft) 100 mg PO QHS [facility] Last Admin: 07/30/19 21:33 Dose: 100 mg Documented by: Sodium Chloride () 10 - 40 ml IV UD PRN PRN Reason: SALINE FLUSH Last Admin: 07/31/19 05:23 Dose: 10 ml Documented by: Zolpidem Tartrate (Ambien (Generic)) 5 mg PO QHS PRN PRN PRN Reason: INSOMNIA Last Admin: 07/31/19 00:51 Dose: 5 mg Documented by: Medical Necessity - Tobacco Use Smoking Status: Never smoker Tobacco Use: Non-smoker Assessment/Plan All Active Problems (Last Updated 07/30/19 @ 15:[address] Magdy Conn MD) Acute on chronic pancreatitis (Acute) New onset A. fib with RVR (Acute) This is a 23 years old female patient presented to the emergency room because of palpitation, shortness of breath and nausea and she was found to have new onset A. fib with RVR. shortly after admission, patient complained of upper abdominal pain, lipase repeated and she was found to have acute on chronic pancreatitis. #1 new onset A. fib with RVR: Converted back to sinus rhythm. She is off IV Cardizem drip. She is on p.o. Cardizem. Therapeutic Lovenox discontinued by cardiology. Troponin was negative x2. Cardiology on the case, canceled the stress echocardiogram. Potassium is 5.4, serum magnesium, sodium and calcium are normal. Plan to continue same treatment, repeat potassium later today, repeat CBC, CMP and lipase tomorrow morning. #2 acute on chronic pancreatitis: She does have a history of chronic pancreatitis with frequent flareups, unclear etiology but could be due to hypertriglyceridemia. Initial lipase on admission was normal, repeat lipase done and it was 7926, came down to 7670 today. LFT was unremarkable. She is on n.p.o., IV fluids, IV Dilaudid for pain as well as IV antiemetics. Plan: Increase IV Dilaudid to 1 mg every 3 hours as needed, decrease IV fluids down to 150 cc/h, incentive spirometer, repeat CBC, CMP and lipase tomorrow morning. #3 type 2 diabetes mellitus: She is on n.p.o. She is only on sliding scale and Accu-Cheks. Patient has been stable. Hemoglobin A1c was 7%. Plan: Change Accu-Cheks every 6 hours, continue sliding scale. #3 hypertension: Blood pressure stable, started on Cardizem CD, nifedipine discontinued. #4 hyperlipidemia/hypertriglyceridemia: Continue TriCor. #5 history of pancreatitis: With acute flareup, plan as above. #6 depression: Hold sertraline for now. #7 DVT prophylaxis: Subcu Lovenox. This note was generated with Spots[employer] software. It may contain incorrect words, spelling, and punctuation that were not noted in checking the note before signing. Inpatient E&M: 33234 [facility] L3
[2019-07-31] MEDS: HYDROmorphone 1 MG/ML Syringe IV ×5 (09:42→23:43)
[2019-07-31] MEDS: proMETHazine 25 MG/ML Syringe 12.5 MG IV (10:35)
[2019-07-31] MEDS: dilTIAZem CD 120 MG Capsule PO (10:35)
[2019-07-31 11:20] LABS: Bedside Glucose 199 mg/dL (70-110)
--- NOTE | 2019-07-31 14:10 | CASEMGMT ---
This RN CM to room to complete CM assessment and pt is out of the room for testing at this time. Will attempt again later. SStaten RN CM
--- NOTE | 2019-07-31 14:29 | CASEMGMT ---
MONICA KELLER assessment: Face to Face with patient for initial transition planning/care coordination assessment. MONICA KELLER introduced self and role at [facility], pt voices understanding and consents to assessment at this time. Pt is lying in bed in no distress at this time. Pt is A/Ox4 at this time and answers all questions appropriately at this time. Care providers, pharmacy, and demographics verified at this time. Presentation: C/o dyspnea, 'heart pounding', nausea, abd pain Admitting dx: New onset Afib RVR, pancreatitis PCP: Brendan Specialists: King technical solution architect Preferred [facility]acy: [facility] Insurance: [facility] community plan Prescription Benefit: [facility] community plan Living Will/HPOA: Pt states does not have LW/HPOA and declines AD info at this time. LNOK: Ean Hess, ; Esteban Watson, mother Living Arrangements: Pt states lives with and kids in 1 story apt and states no concerns at home at this time. Pt states is independent with ADL's. Transportation: Pt states drives self and states no transportation concerns at this time. DME/HHC: Pt states has a glucometer with supplies at home. Pt states no hx of HHC or SNF in the past. Pt states no concerns with going home at time of discharge. Pt states is currently unemployed. Pt states does not smoke or drink ETOH. Pt states no further concerns/needs at this time. CM to follow for any further discharge planning/needs. Advised pt to ask for CM if any further questions/concerns/needs arise, voices understanding. Pt Goal: Home Plan: Home [place] MONICA KELLER
[2019-07-31] MEDS: 0.9% Normal Saline 1,000 ML 150 ML IV ×2 (16:02→23:21)
[2019-07-31 16:06] LABS: Bedside Glucose 179 mg/dL (70-110)
[2019-07-31] MEDS: Metoprolol Tartrate 5 MG/5 ML Vial IV (16:06)
[2019-07-31] MEDS: Fenofibrate 145 MG Tablet PO (21:53)
[2019-07-31 22:11] LABS: Bedside Glucose 174 mg/dL (70-110)
[2019-08-01] VITALS (11 sets, daily range): BP systolic 97–139; BP diastolic 45–74; PULSE 62–127; RESP 18; TEMP 36.2–37.1; O2SAT 93–96
[2019-08-01] MEDS: HYDROmorphone 1 MG/ML Syringe IV ×6 (03:57→20:57)
[2019-08-01] MEDS: 0.9% Saline Lock 10 ML Syringe IV ×5 (03:57→20:57)
[2019-08-01 05:40] LABS: Absolute Lymphocyte Count 1.62 X10^3/uL (0.83-4.51); Absolute Neutrophil Count 5.9 X10^3/uL (2.0-7.7); Basophil# 0.06 X10^3/uL; Basophil% 0.7 % (0-1); Eosinophil# 0.02 X10^3/uL; Eosinophils% 0.2 % (0-5); Hematocrit 47.2 % (37-47); Hemoglobin 14.9 g/dL (12.0-15.0); Lymphocyte # 1.62 X10^3/ul (4.0); Lymphocyte % 20.1 % (19-41); Mean Corp Hgb Conc 31.6 g/dL (32-36); Mean Corpuscular Hgb 26.8 pg (27.0-32.0); Mean Platelet Vol. 10.5 fl (6.2-12.0); Monocyte# 0.42 X10^3/uL; Monocyte% 5.2 % (0-10); NRBC Flagged by Analyzer 0 % (0-5); Neutrophil # 5.91 X10^3/uL (2.7-7.7); Neutrophil % 73.6 % (47-70); Platelet Count 236 K/mm3 (150-450); RBC Distribution Width SD 49.6 fl (35.1-43.9); Red Blood Count 5.55 M/mm3 (4.2-5.4); White Blood Count 8.1 K/mm3 (4.4-11.0)
[2019-08-01] MEDS: 0.9% Normal Saline 1,000 ML 150 ML IV ×2 (06:55→18:33)
--- NOTE | 2019-08-01 08:22 | PN.CARD_ITS ---
Subjectve: Patient still in significant amount of abdominal pain due to pancreatitis. Telemetry still shows sinus rhythm in fact, sinus tachycardia which is doc umented in her EKG. Echocardiogram report reviewed which showed normal LV function, no pericardial effusion. Patient denies any chest pain. Objective: Vital Signs Temp Pulse Resp BP Pulse Ox 98.3 F 124 H 18 139/47 H 95 08/01/19 03:55 08/01/19 07:00 08/01/19 03:55 08/01/19 03:55 08/01/19 03:55 Oxygen Flow Rate (L/min) 2 Oxygen Delivery Method Room Air Weight: 238 lb Body Mass Index (BMI) 42.1 Finger Stick Blood Glucose 105 Intake and Output for Last 24 Hours 07/30/19 07/31/19 08/01/19 23:59 23:59 23:59 Intake Total 653.58 / 658.58 4726.75 / 4726.75 900 / 900 Output Total 450 / 450 800 / 800 Balance 203.58 / 208.58 3926.75 / 3926.75 900 / 900 General: Awake, Alert, Oriented x 3 HEENT: PERRL, EOMI, Sclera Non Icteric Neck: Supple, Good ROM, No Lymph Node Enlargement Lungs: Clear to auscultation Cardiovascular: Regular Rhythm, Normal S1, Normal S2, No Murmurs, No Rubs, No Gallops Vascular: No Carotid Bruits, Normal Femoral Pulses, Normal Radial Pulses, Normal Dorsalis Pedal Pulse, Normal Posterior Tibial Pulses Abdomen: Bowel Sounds Present, Soft, Non Tender, No HSM, No Organomegaly Extremities: No Cyanosis, No Clubbing, No edema Neurological: No Focal Motor or Sensory Deficit 07/31/19 15:32: Potassium Cancelled 07/31/19 18:28: Potassium Cancelled 08/01/19 05:32: WBC 8.1, RBC 5.55 H, Hgb 14.9, Hct 47.2 H, MCV 85.0, MCH 26.8 L, MCHC 31.6 L D, Plt Count 236, MPV 10.5, Immature Gran % (Auto) 0.200, Neut % (Auto) 73.6 H, Lymph % (Auto) 20.1, [place] % (Auto) 5.2, Eos % (Auto) 0.2, Baso % (Auto) 0.7, Absolute Neuts (auto) 5.9, Nucleated RBC % 0 Rhythm: EKG: ECHO: Stress Test: Cardiac Cath: PCI: CT Surgery: Holter monitor: EPS: PPM: CXR: Chest CT Scan: Medical Necessity - Tobacco Use Smoking Status: Never smoker Tobacco Use: Non-smoker Assessment/Plan 1. Atrial fibrillation: The patient presents with new onset newly diagnosed atrial fibrillation with rapid reticular response which converted to normal sinus rhythm while on an IV Cardizem drip. In addition the patient has signs and symptoms of possible obstructive sleep apnea but is never been tested. Patient underwent a 2D echo with Doppler on 07/31/2019 which showed normal LV function with an EF of 65%, no evidence of pericardial effusion. I would recommend that she be evaluated for obstructive sleep apnea as an ou tpatient she complains of daytime somnolence, waking up tired all the time, and able to take a nap without much difficulty. Patient was ruled out for myocardial infarction x2, however she has developed pancreatitis which precludes a stress test at this time. I would however recommend a stress test when she has recovered from her pancreatitis. She has had no further atrial fibrillation on her telemetry, and she has maintained normal sinus rhythm. She converted while on IV Cardizem drip. This most likely was exacerbated by her acute pancreatitis. We discontinued her nifedipine, and switch her to Cardizem CD 120 mg p.o. daily. She continues to have sinus tachycardia as a result of her abdominal pain but her blood pressure is adequate. Recommend increasing her Cardizem CD to 180 mg p.o. daily and attempt to keep her heart rate under 100. As the patient is back in sinus rhythm and has pancreatitis, in order to avoid hemorrhagic conversion of her pancreatitis, I recommend discontinuation of her subcu Lovenox. I will defer to the primary service with respect to DVT prophylaxis. 2. Hyperlipidemia: Recommend obtaining a fasting profile once her pancreatitis has resolved.. 3. Obstructive sleep apnea: Recommend she obtain a sleep study as an outpatient as she may have undiagnosed obstructive sleep apnea which may be problematic with her atrial fibrillation. 4. Discussed with Dr. Conn. We will sign off, please call with any questions. Inpatient E&M: 75974 Subs Hosp L2
[2019-08-01 09:03] LABS: ALB/GLOB Ratio 0.6 RATIO (0.9-2.4); AST(SGOT) 118 U/L (15-37); Alanine Aminotransfer ALT/SGPT 68 U/L (13-56); Albumin, Serum 2.5 g/dL (3.2-5.0); Alkaline Phosphatase 58 U/L (45-117); Anion Gap 12 (5-15); BUN 31 mg/dL (7-18); BUN/Creat Ratio 10.1 RATIO (10-20); Calcium,Total 6.1 mg/dL (8.5-10.1); Chloride 111 mmol/L (98-107); Creatinine, Serum 3.07 mg/dL (0.55-1.02); EST Glomerular Filtration Rate 20 mL/min (>60); Est Glom Filt Rate - Afr Amer 24 mL/min (>60); Estimated Creatinine Clearance 23.58 ml/min; Globulin 4.1 g/dL (2.2-4.2); Glucose 171 mg/dL (74-106); Lipase 3143 U/L (73-393); Potassium 4.9 mmol/L (3.5-5.1); Protein, Total 6.6 g/dL (6.4-8.2); Sodium Level 135 mmol/L (136-145)
--- NOTE | 2019-08-01 09:26 | PCM.PROGNOTE ---
Patient Problems: Active and Suspected Problems (Last Updated 07/30/19 @ 15:[address] Magdy Conn MD) Acute on chronic pancreatitis (Acute) New onset A. fib with RVR (Acute) Subjective: Chief complaint: Follow-up after admission for acute on chronic pancreatitis and new onset A. fib with RVR, today developed acute renal failure and hypocalcemia as well as elevated LFT. Patient seen and examined. No acute events overnight. She is still complaining of abdominal pain, 9 out of 10 in severity, generalized, minimal nausea, no vomiting. She did mention that IV Dilaudid is working. She has been afebrile, heart rate has been in the 110s, blood pressure stable, pulse ox is 95% on room air. - Physical Exam Vitals/I&O's: Vital Signs Temp Pulse Resp BP Pulse Ox 98.3 F 124 H 18 139/47 H 95 08/01/19 03:55 08/01/19 07:00 08/01/19 03:55 08/01/19 03:55 08/01/19 07:26 Oxygen Flow Rate (L/min) 2 Oxygen Delivery Method Room Air Weight: 238 lb Body Mass Index (BMI) 42.1 Finger Stick Blood Glucose 105 Intake and Output for Last 24 Hours 07/30/19 07/31/19 08/01/19 23:59 23:59 23:59 Intake Total 653.58 / 658.58 4726.75 / 4726.75 900 / 900 Output Total 450 / 450 800 / 800 Balance 203.58 / 208.58 3926.75 / 3926.75 900 / 900 General: Alert, Oriented x3, Cooperative, - - She is in moderate distress because of abdominal pain, mildly short of breath. HEENT: Atraumatic, PERRLA, EOMI, Normocephalic Oral: Moist Mucosa, No Gingival or Mucosal Lesions/ Ulcerations Neck: Supple, No JVD, Negative Carotid Bruits, Trachea Midline, Thyroid Normal Size and Texture Lungs: Clear to auscultation, Normal air movement, No rhonchi, No wheeze, No rales, Diminished Cardiovascular: Regular rate, Regular Rhythm, Normal S1, Normal S2, PMI Normal, Tachycardic Abdomen: Bowel Sounds Present, Soft, Non-Distended, No Hepato-splenomegaly, Obese, Tender - No guarding or rigidity. Extremities: No clubbing, No cyanosis, No edema Skin: No rashes, No breakdown Lymphatic: No Cervical, Supraclavicular, or Inguinal Adenopathy Neurological: Cranial nerves II-XII grossly intact, Neuro grossly intact Psych/Mental Status: Normal Affect, Appropriate, Alert and oriented to time, place, person, mood and affect Laboratory Results 07/31/19 11:14: POC Glucose 199 H 07/31/19 15:32: Potassium Cancelled 07/31/19 16:01: POC Glucose 179 H 07/31/19 18:28: Potassium Cancelled 07/31/19 21:57: POC Glucose 174 H 08/01/19 05:32: WBC 8.1, RBC 5.55 H, Hgb 14.9, Hct 47.2 H, MCV 85.0, MCH 26.8 L, MCHC 31.6 L D, RDW Std Deviation 49.6 H, RDW Coeff of Varun 16.0 H, Plt Count 236, MPV 10.5, Immature Gran % (Auto) 0.200, Neut % (Auto) 73.6 H, Lymph % (Auto) 20.1, [place] % (Auto) 5.2, Eos % (Auto) 0.2, Baso % (Auto) 0.7, Absolute Neuts (auto) 5.9, Absolute Lymphs (auto) 1.62, Nucleated RBC % 0 08/01/19 05:32: Sodium 135 L, Potassium 4.9, Chloride 111 H, Carbon Dioxide 12.0 L, Anion Gap 12, BUN 31 H, Creatinine 3.07 H, Estim Creat Clear Calc 23.58, Est GFR (MDRD) Af Amer 24 L, Est GFR (MDRD) Non-Af 20 L, BUN/Creatinine Ratio 10.1, Glucose 171 H, Calcium 6.1 L*, Total Bilirubin 1.60 H, AST 118 H, ALT 68 H, Alkaline Phosphatase 58, Total Protein 6.6, Albumin 2.5 L, Globulin 4.1, Albumin/Globulin Ratio 0.6 L, Lipase 3143 H Current Medications Acetaminophen (Tylenol) 650 mg PO Q6H PRN PRN PRN Reason: Pain Score 1-10/Temp > 100.7 F Dextrose (D50w Syringe) 0 gm IV X1 PRN; Protocol PRN Reason: Hypoglycemia Diltiazem HCl (Cardizem Cd) 180 mg PO DAILY [facility] Enoxaparin Sodium (Lovenox) 40 mg SC DAILY [facility] Last Admin: 07/31/19 10:04 Dose: Not Given Documented by: Fenofibrate (Tricor) 145 mg PO QHS [facility] Last Admin: 07/31/19 21:53 Dose: 145 mg Documented by: Glucagon () 1 mg IM .X1 PRN PRN Reason: Hypoglycemia Hydromorphone HCl (Dilaudid Inj) 1 mg IV Q3H PRN PRN PRN Reason: Pain Score 6-10/10 Last Admin: 08/01/19 06:57 Dose: 1 mg Documented by: Sodium Chloride () 250 mls @ 15 mls/hr IV .[id number] PRN PRN Reason: Saline Flush Sodium Chloride () 250 mls @ 15 mls/hr IV .[id number] PRN PRN Reason: Additional IVPB Infusion Sodium Chloride () 1,000 mls @ 150 mls/hr IV .Q6H40M [facility] Last Admin: 08/01/19 06:55 Dose: 150 mls/hr Documented by: Pantoprazole Sodium 40 mg/ (Sodium Chloride) 110 mls @ 330 mls/hr IV Q12 [facility] Last Infusion: 07/31/19 22:20 Dose: Infused Documented by: Insulin Human Lispro (Humalog Kwikpen (Bkc)) 0 unit SC ACHS [facility]; Protocol Last Admin: 08/01/19 07:04 Dose: Not Given Documented by: Metoprolol Tartrate (Lopressor (Beta Jaja)) 5 mg IV Q6 PRN PRN Reason: HR >110 Last Admin: 07/31/19 16:06 Dose: 5 mg Documented by: Ondansetron HCl (Zofran) 4 mg IV Q8H PRN PRN PRN Reason: NAUSEA/VOMITING Last Admin: 07/31/19 03:02 Dose: 4 mg Documented by: Promethazine HCl (Phenergan) 12.5 mg IV Q6H PRN PRN PRN Reason: NAUSEA/VOMITING Last Admin: 07/31/19 10:35 Dose: 12.5 mg Documented by: Senna/Docusate Sodium (Senokot-S, Dunia-Colace) 2 tablet PO BID PRN PRN PRN Reason: Constipation Sodium Chloride () 10 - 40 ml IV UD PRN PRN Reason: SALINE FLUSH Last Admin: 08/01/19 03:57 Dose: 10 ml Documented by: Zolpidem Tartrate (Ambien (Generic)) 5 mg PO QHS PRN PRN PRN Reason: INSOMNIA Last Admin: 07/31/19 00:51 Dose: 5 mg Documented by: Medical Necessity - Tobacco Use Smoking Status: Never smoker Tobacco Use: Non-smoker Assessment/Plan All Active Problems (Last Updated 07/30/19 @ 15:[address] Magdy Conn MD) Acute on chronic pancreatitis (Acute) New onset A. fib with RVR (Acute) This is a 23 years old female patient presented to the emergency room because of palpitation, shortness of breath and nausea and she was found to have new onset A. fib with RVR. After admission, she developed abdominal pain, found to have elevated lipase consistent with acute on chronic pancreatitis. Overnight, she developed acute renal failure and LFTs started to go up. #1 acute on chronic pancreatitis: Remains on n.p.o., IV fluids, IV Dilaudid for pain, IV Protonix and IV antiemetics. Lipase is trending down, it is down to 3143. Bilirubin as well as liver transaminases start to go up, alk phos is normal. She remained afebrile, tachycardic, blood pressure stable, pulse ox is maintained on room air. She does have a history of chronic pancreatitis which is in the past attributed to probably hypertriglyceridemia. Plan: Ultrasound gallbladder, general surgery consult. #2 new onset A. fib with RVR: Converted back to sinus rhythm but she has been tachycardic. She is off IV Cardizem drip. Dose of p.o. Cardizem increased today by cardiology. She is on IV metoprolol as needed as well. Lovenox discontinued. Troponin was negative x2. Cardiology on the case, canceled the stress echocardiogram. 2D echocardiogram revealed ejection fraction of 65%, no other significant findings. #3 acute renal failure: Secondary to acute pancreatitis, dehydration. BUN and creatinine was normal yesterday. Today, BUN is 31 and creatinine went up to 3.07. She did have a history of acute renal failure with the pancreatitis back in 2018. Plan: Continue IV fluids, input output chart, nephrology consult, repeat BMP tomorrow morning. #4 hypocalcemia: Today's calcium is 6.1 mg/dL. Serum albumin is 2.5 g/dL. Corrected calcium for albumin is 7.3 mg/dL. Plan to give 1 dose of IV calcium gluconate, repeat CMP tomorrow morning. #5 type 2 diabetes mellitus: She is on n.p.o. She is only on sliding scale and Accu-Cheks. Blood sugar been stable. Hemoglobin A1c was 7%. Continue Accu-Cheks every 6 hours, continue sliding scale. #6 hypertension: Blood pressure stable, dose of Cardizem increased today because of tachycardia. Nifedipine is continued. #7 hyperlipidemia/hypertriglyceridemia: Discontinue TriCor. #8 history of pancreatitis: With acute flareup, plan as above. #9 depression: Keep holding sertraline for now. #10 DVT prophylaxis: Subcu Lovenox. This note was generated with [employer] dictation software. It may contain incorrect words, spelling, and punctuation that were not noted in checking the note before signing. Inpatient E&M: 08166 Subs Hosp L3
[2019-08-01] MEDS: dilTIAZem CD 180 MG Capsule PO (09:45)
[2019-08-01] MEDS: Enoxaparin 40 MG/0.4 ML Syringe SC (09:48)
--- NOTE | 2019-08-01 10:15 | CT_ITS ---
STUDY: CT ABDOMEN AND PELVIS WITHOUT CONTRAST REASON FOR EXAM: Female, 23 years old. PT STATED HX PANCREATITIS, DIFFUSE ABDOM PAIN, HX VINICIO, ENDOSCOPY RADIATION DOSAGE (If Supplied By Facility): CTDIvol = ( 22.76 ) mGy, DLP = ( 1302.44 ) mGycm TECHNIQUE: Transaxial images were obtained from the dome of the diaphragm to the symphysis pubis without oral contrast, and without intravenous contrast. Sagittal and coronal images were reconstructed. Individualized dose optimization techniques were used for this CT. COMPARISON: Comparison is made with prior examination dated June 22, 2019. FINDINGS: Minimal left pleural effusion. Bibasilar infiltrates. This is worse at the left lung base. The visualized portions of the heart are within normal limits. There is decreased attenuation of the liver consistent with steatosis. Diffuse hepatomegaly. There are surgical clips in the gallbladder fossa consistent with a prior cholecystectomy. There is mild splenomegaly. There is diffuse enlargement of the pancreas with jose m-pancreatic edema suggesting acute pancreatitis. There is diffuse infiltration of the omentum in the upper abdomen as well as in the peripancreatic region extending into the lower abdomen and upper pelvis more prominent on the left side. There is thickening of the left perinephric space with a small amount of fluid. Normal bilateral adrenal glands. Normal right kidney. Normal left kidney. Normal visualized stomach. Normal small intestine. Normal colon. The appendix is visualized and appears normal. Normal abdominal aorta. Normal inferior vena cava. Normal retroperitoneum. Normal urinary bladder. Small amount of ascites. Normal abdominal wall. Normal osseous structures. CT/Abdomen/Pelvis without Cont IMPRESSION: Hepatomegaly with diffuse fatty infiltration. Diffuse enlargement of the pancreas with findings in keeping with acute pancreatitis with infiltration of the fat in the omentum as described. Ascites. Bibasilar infiltrates more prominent on the left side with the small left pleural effusion. Electronically Signed: Popeye Nichols, at 11:12 EDT , Service support ,
--- NOTE | 2019-08-01 10:27 | CON.PCM_ITS ---
Consultation - Renal 08/01/19 PCP/ Referring MD: Requesting physician: [] Primary care physician: Dr. Bryant Cardona MD Reason for Consultation:: kim - History of Present Illness History of Present Illness: The patient is a 23 year old F with past medical history as below who presented with a chief complaint of palpitations and shortness of breath on the morning 4to admission on July 29 associated with shortness of breath dizziness and some nausea and chest pain. She denies syncope though or abdominal pain or nausea or vomiting or fever or chills. She was found to be in A. fib RVR with a heart rate in the 150s. Later on she developed acute pancreatitis with a history of chronic pancreatitis and increasing serum creatinine which prompted renal consult. She had an episode of KIM in 2018 when she was seen by nephrology. Initial serum creatinine 0.7 then 1.13 yesterday and 3.07 today. He had systolic blood pressures in the 90s yesterday. The patient had a bladder scan about an hour ago which showed 34 mL. Except abdominal pain she denies nausea vomiting. She denies dysuria hematuria. She has diabetes for few years but she is not sure for how many. She has no other complaints. - Allergies Allergies: Allergies Gadolinium-MRI Contrast Medium [DYE] Allergy (Severe, Verified 07/30/19 11:34) KIDNEY FAILURE kidney failure - Current Medications Current Medications: Current Medications Acetaminophen (Tylenol) 650 mg PO Q6H PRN PRN PRN Reason: Pain Score 1-10/Temp > 100.7 F Dextrose (D50w Syringe) 0 gm IV X1 PRN; Protocol PRN Reason: Hypoglycemia Diltiazem HCl (Cardizem Cd) 180 mg PO DAILY [facility] Last Admin: 08/01/19 09:45 Dose: 180 mg Documented by: Enoxaparin Sodium (Lovenox) 40 mg SC DAILY [facility] Last Admin: 08/01/19 09:48 Dose: 40 mg Documented by: Glucagon () 1 mg IM .X1 PRN PRN Reason: Hypoglycemia Hydromorphone HCl (Dilaudid Inj) 1 mg IV Q3H PRN PRN PRN Reason: Pain Score 6-10/10 Last Admin: 08/01/19 10:15 Dose: 1 mg Documented by: Sodium Chloride () 250 mls @ 15 mls/hr IV .[id number] PRN PRN Reason: Saline Flush Sodium Chloride () 250 mls @ 15 mls/hr IV .[id number] PRN PRN Reason: Additional IVPB Infusion Sodium Chloride () 1,000 mls @ 150 mls/hr IV .Q6H40M BORIS Last Infusion: 08/01/19 10:15 Dose: 150 mls/hr Documented by: Pantoprazole Sodium 40 mg/ (Sodium Chloride) 110 mls @ 330 mls/hr IV Q12 BORIS Last Infusion: 08/01/19 10:18 Dose: Infused Documented by: Calcium Gluconate 2 gm/ (Dextrose) 120 mls @ 60 mls/hr IV X1 ONE Stop: 08/01/19 11:59 Insulin Human Lispro (Humalog Kwikpen (Bkc)) 0 unit SC ACHS [facility]; Protocol Last Admin: 08/01/19 07:04 Dose: Not Given Documented by: Metoprolol Tartrate (Lopressor (Beta Jaja)) 5 mg IV Q6 PRN PRN Reason: HR >110 Last Admin: 07/31/19 16:06 Dose: 5 mg Documented by: Ondansetron HCl (Zofran) 4 mg IV Q8H PRN PRN PRN Reason: NAUSEA/VOMITING Last Admin: 07/31/19 03:02 Dose: 4 mg Documented by: Promethazine HCl (Phenergan) 12.5 mg IV Q6H PRN PRN PRN Reason: NAUSEA/VOMITING Last Admin: 07/31/19 10:35 Dose: 12.5 mg Documented by: Sodium Chloride () 10 - 40 ml IV UD PRN PRN Reason: SALINE FLUSH Last Admin: 08/01/19 10:15 Dose: 10 ml Documented by: Zolpidem Tartrate (Ambien (Generic)) 5 mg PO QHS PRN PRN PRN Reason: INSOMNIA Last Admin: 07/31/19 00:51 Dose: 5 mg Documented by: - Past Medical History Past Medical History (Chronic Problems): Chronic Problems (Last Updated 07/30/19 @ 15:[address] Magdy Conn MD) History of severe pre-eclampsia (Chronic) nl baseline labs History of pancreatitis (Chronic) monitor PRN Hypertension (Chronic) Type 2 diabetes mellitus (Chronic) Hyperlipidemia (Chronic) Hypertriglyceridemia (Chronic) Depression (Chronic) zoloft, encourage counseling. - Past Surgical History Surgical History: cholecystectomy, - - Social History Smoking Status: Never smoker Alcohol: None Drugs: None - Family History Maternal Family History: Family History (Last Reviewed 07/30/19 @ 15:[address] Magdy Conn MD) Mother Diabetes Grandmother Diabetes Grandfather Diabetes Father hyperlipidemia Unknown Depression Hypertension History Items: Diabetes Paternal Family History: Family History (Last Reviewed 07/30/19 @ 15:[address] Magdy Conn MD) Mother Diabetes Grandmother Diabetes Grandfather Diabetes Father hyperlipidemia Unknown Depression Hypertension History Items: Diabetes Review of Systems Eyes: Reports: - - Review of systems otherwise negative unless noted in the history of present illness Patient Problems: Active and Suspected Problems (Last Updated 07/30/19 @ 15:[address] Magdy Conn MD) Acute on chronic pancreatitis (Acute) New onset A. fib with RVR (Acute) - Physical Exam Vitals/I&O's: Vital Signs Temp Pulse Resp BP Pulse Ox 98.0 F 124 H 18 100/45 L 96 08/01/19 09:40 08/01/19 09:40 08/01/19 09:40 08/01/19 09:40 08/01/19 09:40 Oxygen Flow Rate (L/min) 2 Oxygen Delivery Method Room Air Weight: 107.955 kg Body Mass Index (BMI) 42.1 Finger Stick Blood Glucose 105 Intake and Output for Last 24 Hours 07/30/19 07/31/19 08/01/19 23:59 23:59 23:59 Intake Total 653.58 / 658.58 4726.75 / 4726.75 1447.5 / 1447.5 Output Total 450 / 450 800 / 800 Balance 203.58 / 208.58 3926.75 / 3926.75 1447.5 / 1447.5 General: Alert, Cooperative HEENT: Atraumatic, EOMI Oral: Moist Mucosa Neck: Supple, No JVD, Negative Carotid Bruits Lungs: Clear to auscultation, Normal air movement Cardiovascular: Regular rate, Regular Rhythm, Normal S1 Abdomen: Bowel Sounds Present, Soft, Obese Extremities: No clubbing, No edema Neurological: Cranial nerves II-XII grossly intact Laboratory Results 07/31/19 11:14: POC Glucose 199 H 07/31/19 15:32: Potassium Cancelled 07/31/19 16:01: POC Glucose 179 H 07/31/19 18:28: Potassium Cancelled 07/31/19 21:57: POC Glucose 174 H 08/01/19 05:32: WBC 8.1, RBC 5.55 H, Hgb 14.9, Hct 47.2 H, MCV 85.0, MCH 26.8 L, MCHC 31.6 L D, RDW Std Deviation 49.6 H, RDW Coeff of Varun 16.0 H, Plt Count 236, MPV 10.5, Immature Gran % (Auto) 0.200, Neut % (Auto) 73.6 H, Lymph % (Auto) 20.1, [place] % (Auto) 5.2, Eos % (Auto) 0.2, Baso % (Auto) 0.7, Absolute Neuts (auto) 5.9, Absolute Lymphs (auto) 1.62, Nucleated RBC % 0 08/01/19 05:32: Sodium 135 L, Potassium 4.9, Chloride 111 H, Carbon Dioxide 12.0 L, Anion Gap 12, BUN 31 H, Creatinine 3.07 H, Estim Creat Clear Calc 23.58, Est GFR (MDRD) Af Amer 24 L, Est GFR (MDRD) Non-Af 20 L, BUN/Creatinine Ratio 10.1, Glucose 171 H, Calcium 6.1 L*, Total Bilirubin 1.60 H, AST 118 H, ALT 68 H, Alkaline Phosphatase 58, Total Protein 6.6, Albumin 2.5 L, Globulin 4.1, Albumin/Globulin Ratio 0.6 L, Lipase 3143 H Current Medications Acetaminophen (Tylenol) 650 mg PO Q6H PRN PRN PRN Reason: Pain Score 1-10/Temp > 100.7 F Dextrose (D50w Syringe) 0 gm IV X1 PRN; Protocol PRN Reason: Hypoglycemia Diltiazem HCl (Cardizem Cd) 180 mg PO DAILY [facility] Last Admin: 08/01/19 09:45 Dose: 180 mg Documented by: Enoxaparin Sodium (Lovenox) 40 mg SC DAILY [facility] Last Admin: 08/01/19 09:48 Dose: 40 mg Documented by: Glucagon () 1 mg IM .X1 PRN PRN Reason: Hypoglycemia Hydromorphone HCl (Dilaudid Inj) 1 mg IV Q3H PRN PRN PRN Reason: Pain Score 6-10/10 Last Admin: 08/01/19 10:15 Dose: 1 mg Documented by: Sodium Chloride () 250 mls @ 15 mls/hr IV .[id number] PRN PRN Reason: Saline Flush Sodium Chloride () 250 mls @ 15 mls/hr IV .[id number] PRN PRN Reason: Additional IVPB Infusion Sodium Chloride () 1,000 mls @ 150 mls/hr IV .Q6H40M BORIS Last Infusion: 08/01/19 10:15 Dose: 150 mls/hr Documented by: Pantoprazole Sodium 40 mg/ (Sodium Chloride) 110 mls @ 330 mls/hr IV Q12 [facility] Last Infusion: 08/01/19 10:18 Dose: Infused Documented by: Calcium Gluconate 2 gm/ (Dextrose) 120 mls @ 60 mls/hr IV X1 ONE Stop: 08/01/19 11:59 Insulin Human Lispro (Humalog Kwikpen (Bkc)) 0 unit SC ACHS [facility]; Protocol Last Admin: 08/01/19 07:04 Dose: Not Given Documented by: Metoprolol Tartrate (Lopressor (Beta Jaja)) 5 mg IV Q6 PRN PRN Reason: HR >110 Last Admin: 07/31/19 16:06 Dose: 5 mg Documented by: Ondansetron HCl (Zofran) 4 mg IV Q8H PRN PRN PRN Reason: NAUSEA/VOMITING Last Admin: 07/31/19 03:02 Dose: 4 mg Documented by: Promethazine HCl (Phenergan) 12.5 mg IV Q6H PRN PRN PRN Reason: NAUSEA/VOMITING Last Admin: 07/31/19 10:35 Dose: 12.5 mg Documented by: Sodium Chloride () 10 - 40 ml IV UD PRN PRN Reason: SALINE FLUSH Last Admin: 08/01/19 10:15 Dose: 10 ml Documented by: Zolpidem Tartrate (Ambien (Generic)) 5 mg PO QHS PRN PRN PRN Reason: INSOMNIA Last Admin: 07/31/19 00:51 Dose: 5 mg Documented by: Assessment/Plan All Active Problems (Last Updated 07/30/19 @ 15:[address] Magdy Conn MD) Acute on chronic pancreatitis (Acute) New onset A. fib with RVR (Acute) KIM -ATN secondary to pancreatitis and hypotension normal renal function at baseline Metabolic acidosis NAG Hypocalcemia Acute on chronic pancreatitis received Ca today replace if symptomatic continue ivf as you are doing Avoid hypotension Avoid nephrotoxins Check renal ultrasound Check UA Further work-up as indicated by clinical course Will adjust IV fluids composition on a daily basis depending on electrolyte values. Potassium is 4.9 today. The above assessment and plan was discussed at length with the patient voiced understanding and agrees to proceed with the plan as outlined above. She was given the opportunity to ask questions and stated that those were answered to her satisfaction. Thank you very much for allowing me to participate in the care of this patient. Please do not hesitate to call if you have any questions or concerns.
--- NOTE | 2019-08-01 10:46 | US_ITS ---
STUDY: RENAL ULTRASOUND - COMPLETE REASON FOR EXAM: Female, 23 years old. UNABLE TO VOID TECHNIQUE: Ultrasound evaluation of the kidneys was performed with real-time and static triplett-scale imaging. COMPARISON: None. FINDINGS: RIGHT KIDNEY: Normal location of the right kidney, which is normal in size. The right kidney measures 12.8 cm x 6 cm x 6.2 cm. There is a normal cortex of the right kidney. The renal cortex measures 2.9 cm. There is no right renal mass or cyst. There are no right renal calculi. There is no right hydronephrosis. DISTAL RIGHT URETER: There is non-visualization of the distal right ureter. There is no demonstrated right ureterovesical junction calculus. There is no demonstrated right ureteral jet. LEFT KIDNEY: Normal location of the left kidney, which is normal in size. The left kidney measures 12 cm x 5.97 x 5.9 cm. There is a normal cortex of the left kidney. The renal cortex measures 1.4 cm. There is no left renal mass or cyst. There are no left renal calculi. There is no left hydronephrosis. DISTAL LEFT URETER: There is non-visualization of the distal left ureter. There is no demonstrated left ureterovesical junction calculus. There is no demonstrated left ureteral jet. BLADDER: The distended urinary bladder has a volume of 82 ml. Diffuse bladder wall thickening although the bladder is not adequately distended. Splenomegaly. The spleen measures 21 cm x 7.3 cm x 6.5 cm. US/Kidney and Bladder IMPRESSION: Normal ultrasound of the kidneys. Bladder wall thickening. Splenomegaly. Electronically Signed: Popeye Nichols, at 12:30 EDT , Service support ,
[2019-08-01 12:46] LABS: Bedside Glucose 151 mg/dL (70-110)
[2019-08-01 13:28] LABS: Color, Urine Amber (Yellow); Glucose, Dipstick Normal (Normal); Ketone-Dipstick 5 mg/dl (Negative); Leukocyte Esterase-Dipstick 100 /ul (Negative); Nitrite-Dipstick Negative (Negative); Occult Blood-Urine 250 /ul (Negative); Protein-Dipstick 30 mg/dl (Negative); Specific Gravity, Urine 1.025 (1.002-1.030); Urine Clarity Cloudy (Clear); Urine Urobilinogen 4 mg/dl (Normal)
[2019-08-01 13:37] LABS: Urine Bilirubin Dipstick 3 mg/dL (Negative)
[2019-08-01 13:41] LABS: Bacteria 2+ /hpf (None Seen); Red Blood Cells-Urine 25-50 SEEN /hpf (0-5); Squamous Epithelial Cells - UA 0-5 SEEN /hpf (5-10); White Blood Cells 0-5 SEEN /hpf (0-5)
[2019-08-01 13:42] LABS: Mucous, Urine RARE /hpf (<or=2+)
--- NOTE | 2019-08-01 15:02 | PCM.CONS.GEN ---
Reason for Consult Date of Consultation: 08/01/19 History of Present Illness: The patient is a 23 year old F initially admitted on Sunday for A. fib, Sunday night after dinner patient started having abdominal pain her lipase was elevated in the 7000s currently it is down to [address] with no contrast that she is allergic to contrast did show a lot of inflammation around the pancreas and in the omentum near the pancreas. Patient's white blood cell count still within normal range patient's bilirubin did increase to 1.6 this morning along with some elevation of AST and ALT, alk phos is normal. Patient states her abdominal pain is 8/10 & some nausea and had some diarrhea today as well as flatus. Patient has a history of pancreatitis after her previous pregnancies as well patient just gave in April of this year. Patient had her gallbladder removed in 2017. Patient states initially she had higher triglycerides however those have been under control per patient. Past Medical History Past Medical History (Chronic Problems): Chronic Problems (Last Updated 07/30/19 @ 15:[address] Magdy Conn MD) History of severe pre-eclampsia (Chronic) nl baseline labs History of pancreatitis (Chronic) monitor PRN Hypertension (Chronic) Type 2 diabetes mellitus (Chronic) Hyperlipidemia (Chronic) Hypertriglyceridemia (Chronic) Depression (Chronic) zoloft, encourage counseling. Medical History: Medical History (Last Updated 07/30/19 @ 15:[address] Magdy Conn MD) Depression (Chronic) F32.9 zoloft, encourage counseling. High triglycerides E78.1 Hx of transfusion of whole blood Z92.89 Hyperlipidemia E78.5 HTN (hypertension) I10 Allergies Gadolinium-MRI Contrast Medium [DYE] Allergy (Severe, Verified 07/30/19 11:34) KIDNEY FAILURE kidney failure Home Medications: Ambulatory Orders Medication Instructions Recorded sertraline 100 mg tablet 100 mg PO QHS 01/06/19 Omeprazole 40 mg PO QHS 06/22/19 proMETHazine tablet [Phenergan 25 mg PO Q6H PRN PRN #12 tab 06/22/19 tablet] Fenofibrate [Tricor] 145 mg PO QHS 07/29/19 Nifedipine [Procardia Xl] 30 mg PO QHS 07/29/19 Surgical History: Surgical History (Last Reviewed 04/06/20 @ 02:[address] 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 Magdy Conn MD) Mother Diabetes Grandmother Diabetes Grandfather Diabetes Father hyperlipidemia Unknown Depression Hypertension History Items: Diabetes Paternal Family History: Family History (Last Reviewed 07/30/19 @ 15:[address] Magdy Conn MD) Mother Diabetes Grandmother Diabetes Grandfather Diabetes Father hyperlipidemia Unknown Depression Hypertension History Items: Diabetes Review of Systems Constitutional: Reports: Anorexia, Fever HEENT: Denies: Difficulty Swallowing Cardiovascular: Denies: Chest Pain Respiratory: Reports: Shortness of Breath - Due to abdominal pain Gastrointestinal: Reports: Abdominal Pain, Diarrhea, Nausea Genitourinary: Denies: Dysuria Skin: Denies: Rash Neurological: Denies: Balance problems Psychiatric: Denies: Suicidal Ideations Hematologic/ Lymphatic: Denies: Easy Bleeding Patient Problems: Active and Suspected Problems (Last Updated 07/30/19 @ 15:[address] Magdy Conn MD) New onset A. fib with RVR (Acute) - Physical Exam Vitals/I&O's: Vital Signs Temp Pulse Resp BP Pulse Ox 98.0 F 119 H 18 100/45 L 96 08/01/19 09:40 08/01/19 11:00 08/01/19 09:40 08/01/19 09:40 08/01/19 09:40 Oxygen Flow Rate (L/min) 2 Oxygen Delivery Method Room Air Weight: 238 lb Body Mass Index (BMI) 42.1 Finger Stick Blood Glucose 105 Intake and Output for Last 24 Hours 07/30/19 07/31/19 08/01/19 23:59 23:59 23:59 Intake Total 653.58 / 658.58 4726.75 / 4726.75 1690.0 / 1690.0 Output Total 450 / 450 800 / 800 Balance 203.58 / 208.58 3926.75 / 3926.75 1690.0 / 1690.0 General: Alert, Oriented x3, Cooperative HEENT: Atraumatic Lungs: Normal air movement Cardiovascular: Tachycardic Abdomen: Soft, Tender - Diffusely tender, mild rebound, no guarding Extremities: No clubbing, No cyanosis Neurological: Cranial nerves II-XII grossly intact Psych/Mental Status: Normal Affect Laboratory Results 07/31/19 15:32: Potassium Cancelled 07/31/19 16:01: POC Glucose 179 H 07/31/19 18:28: Potassium Cancelled 07/31/19 21:57: POC Glucose 174 H 08/01/19 05:32: WBC 8.1, RBC 5.55 H, Hgb 14.9, Hct 47.2 H, MCV 85.0, MCH 26.8 L, MCHC 31.6 L D, RDW Std Deviation 49.6 H, RDW Coeff of Varun 16.0 H, Plt Count 236, MPV 10.5, Immature Gran % (Auto) 0.200, Neut % (Auto) 73.6 H, Lymph % (Auto) 20.1, [place] % (Auto) 5.2, Eos % (Auto) 0.2, Baso % (Auto) 0.7, Absolute Neuts (auto) 5.9, Absolute Lymphs (auto) 1.62, Nucleated RBC % 0 08/01/19 05:32: Sodium 135 L, Potassium 4.9, Chloride 111 H, Carbon Dioxide 12.0 L, Anion Gap 12, BUN 31 H, Creatinine 3.07 H, Estim Creat Clear Calc 23.58, Est GFR (MDRD) Af Amer 24 L, Est GFR (MDRD) Non-Af 20 L, BUN/Creatinine Ratio 10.1, Glucose 171 H, Calcium 6.1 L*, Total Bilirubin 1.60 H, AST 118 H, ALT 68 H, Alkaline Phosphatase 58, Total Protein 6.6, Albumin 2.5 L, Globulin 4.1, Albumin/Globulin Ratio 0.6 L, Lipase 3143 H 08/01/19 12:32: POC Glucose 151 H 08/01/19 13:20: Urine Color Frida, Urine Clarity Cloudy, Urine pH 5.0, Ur Specific [place] 1.025, Urine Protein 30 H, Urine Glucose (UA) Normal, Urine Ketones 5 H, Urine Occult Blood 250 H, Urine Nitrite Negative, Urine Bilirubin 3 H, Urine Urobilinogen 4 H, Ur Leukocyte Esterase 100 H, Urine RBC 25-50 SEEN, Urine WBC 0-5 SEEN, Ur Squamous Epith Cells 0-5 SEEN, Urine Bacteria 2+, Urine Mucus RARE Current Medications Acetaminophen (Tylenol) 650 mg PO Q6H PRN PRN PRN Reason: Pain Score 1-10/Temp > 100.7 F Dextrose (D50w Syringe) 0 gm IV X1 PRN; Protocol PRN Reason: Hypoglycemia Diltiazem HCl (Cardizem Cd) 180 mg PO DAILY [facility] Last Admin: 08/01/19 09:45 Dose: 180 mg Documented by: Enoxaparin Sodium (Lovenox) 40 mg SC DAILY [facility] Last Admin: 08/01/19 09:48 Dose: 40 mg Documented by: Glucagon () 1 mg IM .X1 PRN PRN Reason: Hypoglycemia Hydromorphone HCl (Dilaudid Inj) 1 mg IV Q3H PRN PRN PRN Reason: Pain Score 6-10/10 Last Admin: 08/01/19 13:38 Dose: 1 mg Documented by: Sodium Chloride () 250 mls @ 15 mls/hr IV .[id number] PRN PRN Reason: Saline Flush Sodium Chloride () 250 mls @ 15 mls/hr IV .[id number] PRN PRN Reason: Additional IVPB Infusion Sodium Chloride () 1,000 mls @ 150 mls/hr IV .Q6H40M [facility] Last Infusion: 08/01/19 10:40 Dose: 0 mls/hr Documented by: Pantoprazole Sodium 40 mg/ (Sodium Chloride) 110 mls @ 330 mls/hr IV Q12 [facility] Last Infusion: 08/01/19 10:18 Dose: Infused Documented by: Sodium Chloride () 1,000 mls @ 999 mls/hr IV .Q1H1M ONE Stop: 08/01/19 15:58 Sodium Chloride () 1,000 mls @ 999 mls/hr IV .Q1H1M ONE Stop: 08/01/19 16:00 Insulin Human Lispro (Humalog Kwikpen (Bkc)) 0 unit SC ACHS [facility]; Protocol Last Admin: 08/01/19 12:33 Dose: Not Given Documented by: Metoprolol Tartrate (Lopressor (Beta Jaja)) 5 mg IV Q6 PRN PRN Reason: HR >110 Last Admin: 07/31/19 16:06 Dose: 5 mg Documented by: Ondansetron HCl (Zofran) 4 mg IV Q8H PRN PRN PRN Reason: NAUSEA/VOMITING Last Admin: 07/31/19 03:02 Dose: 4 mg Documented by: Promethazine HCl (Phenergan) 12.5 mg IV Q6H PRN PRN PRN Reason: NAUSEA/VOMITING Last Admin: 07/31/19 10:35 Dose: 12.5 mg Documented by: Sodium Chloride () 10 - 40 ml IV UD PRN PRN Reason: SALINE FLUSH Last Admin: 08/01/19 13:39 Dose: 10 ml Documented by: Zolpidem Tartrate (Ambien (Generic)) 5 mg PO QHS PRN PRN PRN Reason: INSOMNIA Last Admin: 07/31/19 00:51 Dose: 5 mg Documented by: Assessment/Plan All Active Problems (Last Updated 07/30/19 @ 15:[address] Magdy Conn MD) Acute on chronic pancreatitis (Acute) New onset A. fib with RVR (Acute) 23-year-old female with acute pancreatitis, history of pancreatitis 1. CT shows a lot of inflammation around the pancreas, patient will need CorPak or TPN. Patient would prefer TPN did put an order for PICC line. No current plans for surgical intervention. 2. Creatinine up to 3 from 1 yesterday, nephrology following, renal ultrasound normal will give 2 L bolus. 3. Total bili and AST and ALT may be up due to inflammation no other obvious cause seen on CT, patient had gallbladder removed in 2018 Claire Moser M.D. Pager: [phone] [facility] [address] [place] [address], Outpatient [facility], [address] [place] [address] Office: [phone] Inpatient E&M: 19246 Init Hosp L2
[2019-08-01] MEDS: 0.9% Normal Saline 1,000 ML 999 ML IV ×2 (15:53→17:26)
[2019-08-01 17:51] LABS: Bedside Glucose 116 mg/dL (70-110)
[2019-08-01 20:56] LABS: Bedside Glucose 147 mg/dL (70-110)
[2019-08-01 21:16] LABS: Bedside Glucose 139 mg/dL (70-110)
[2019-08-02] VITALS (15 sets, daily range): BP systolic 104–118; BP diastolic 54–74; PULSE 93–116; RESP 16–24; TEMP 36.6–37.3; O2SAT 90–95; BMI 42.1
[2019-08-02] MEDS: HYDROmorphone 1 MG/ML Syringe IV ×9 (00:11→21:31)
[2019-08-02] MEDS: 0.9% Saline Lock 10 ML Syringe IV ×5 (00:12→21:31)
[2019-08-02] MEDS: 0.9% Normal Saline 1,000 ML 150 ML IV ×2 (01:37→08:11)
[2019-08-02 06:35] LABS: Bedside Glucose 133 mg/dL (70-110)
[2019-08-02 07:07] LABS: Absolute Lymphocyte Count 1.04 X10^3/uL (0.83-4.51); Absolute Neutrophil Count 3.9 X10^3/uL (2.0-7.7); Basophil# 0.01 X10^3/uL; Basophil% 0.2 % (0-1); Eosinophil# 0.06 X10^3/uL; Eosinophils% 1.1 % (0-5); Hematocrit 36.7 % (37-47); Hemoglobin 11.2 g/dL (12.0-15.0); Lymphocyte # 1.04 X10^3/ul (4.0); Lymphocyte % 19.7 % (19-41); Mean Corp Hgb Conc 30.5 g/dL (32-36); Mean Corpuscular Hgb 26.4 pg (27.0-32.0); Mean Corpuscular Volume 86.6 fL (81-99); Mean Platelet Vol. 10.3 fl (6.2-12.0); Monocyte# 0.23 X10^3/uL; Monocyte% 4.4 % (0-10); NRBC Flagged by Analyzer 0 % (0-5); Neutrophil % 73.8 % (47-70); POSITIVE MORPHOLOGY YES; Platelet Count 158 K/mm3 (150-450); RBC Distribution Width CV 16.1 % (11.6-14.6); RBC Distribution Width SD 51.1 fl (35.1-43.9); Red Blood Count 4.24 M/mm3 (4.2-5.4); White Blood Count 5.3 K/mm3 (4.4-11.0)
[2019-08-02 07:34] LABS: Differential Indicated SCAN CRITERIA MET
[2019-08-02 07:36] LABS: Atypical Lymphocyte SCANNED %
[2019-08-02 07:38] LABS: ALB/GLOB Ratio 0.6 RATIO (0.9-2.4); AST(SGOT) 57 U/L (15-37); Alanine Aminotransfer ALT/SGPT 36 U/L (13-56); Albumin, Serum 2.1 g/dL (3.2-5.0); Alkaline Phosphatase 47 U/L (45-117); Anion Gap 6 (5-15); BUN 35 mg/dL (7-18); BUN/Creat Ratio 18.1 RATIO (10-20); Calcium,Total 6.6 mg/dL (8.5-10.1); Chloride 111 mmol/L (98-107); Creatinine, Serum 1.93 mg/dL (0.55-1.02); EST Glomerular Filtration Rate 34 mL/min (>60); Est Glom Filt Rate - Afr Amer 41 mL/min (>60); Globulin 3.7 g/dL (2.2-4.2); Glucose 151 mg/dL (74-106); Potassium 4.4 mmol/L (3.5-5.1); Protein, Total 5.8 g/dL (6.4-8.2); Sodium Level 137 mmol/L (136-145)
[2019-08-02] MEDS: Acetaminophen 325 MG Tablet 650 MG PO ×2 (08:06→19:00)
[2019-08-02] MEDS: Ondansetron 4 MG/2 ML Vial IV (08:06)
[2019-08-02 08:26] LABS: Lipase 1647 U/L (73-393)
--- NOTE | 2019-08-02 09:00 | PN_ITS ---
Patient Problems: Active and Suspected Problems (Last Updated 07/30/19 @ 15:[address] Magdy Conn MD) Acute on chronic pancreatitis (Acute) New onset A. fib with RVR (Acute) Subjective: Chief complaint: Follow-up after admission for acute on chronic pancreatitis, new onset A. fib with RVR and after admission, patient developed acute renal failure. Patient seen and examined. No acute events overnight. Today, she reported mild improvement of her abdominal pain. Denied nausea or vomiting. Complains of mild shortness of breath with dry cough. Denies fever chills. She has been afebrile, heart rate has been around 100s, blood pressure stable, pulse ox is 90% on room air. - Physical Exam Vitals/I&O's: Vital Signs Temp Pulse Resp BP Pulse Ox 98.7 F 105 H 24 H 113/62 90 08/02/19 06:47 08/02/19 06:52 08/02/19 07:43 08/02/19 06:47 08/02/19 07:00 Oxygen Flow Rate (L/min) 2 Oxygen Delivery Method Room Air Weight: 238 lb Body Mass Index (BMI) 42.1 Finger Stick Blood Glucose 105 Intake and Output for Last 24 Hours 07/31/19 08/01/19 08/02/19 23:59 23:59 23:59 Intake Total 4726.75 / 4726.75 4775.0 / 4775.0 1265.0 / 1265.0 Output Total 800 / 800 Balance 3926.75 / 3926.75 4775.0 / 4775.0 1265.0 / 1265.0 General: Alert, Oriented x3, Cooperative, - - Minimally short of breath. HEENT: Atraumatic, PERRLA, EOMI, Normocephalic Oral: Moist Mucosa, No Gingival or Mucosal Lesions/ Ulcerations Neck: Supple, No JVD, Negative Carotid Bruits, Trachea Midline, Thyroid Normal Size and Texture Lungs: Clear to auscultation, No rhonchi, No wheeze, No rales, Diminished, - - Decreased breath sounds at the bases, otherwise clear. Cardiovascular: Regular rate, Regular Rhythm, Normal S1, Normal S2, PMI Normal, Tachycardic Abdomen: Bowel Sounds Present, Soft, Non-Distended, No Hepato-splenomegaly, Obese, Tender - Tender, no guarding or rigidity. Extremities: No clubbing, No cyanosis, No edema Skin: No rashes, No breakdown Lymphatic: No Cervical, Supraclavicular, or Inguinal Adenopathy Neurological: Cranial nerves II-XII grossly intact, Neuro grossly intact Psych/Mental Status: Normal Affect, Appropriate Laboratory Results 08/01/19 05:32: Sodium 135 L, Potassium 4.9, Chloride 111 H, Carbon Dioxide 12.0 L, Anion Gap 12, BUN 31 H, Creatinine 3.07 H, Estim Creat Clear Calc 23.58, Est GFR (MDRD) Af Amer 24 L, Est GFR (MDRD) Non-Af 20 L, BUN/Creatinine Ratio 10.1, Glucose 171 H, Calcium 6.1 L*, Total Bilirubin 1.60 H, AST 118 H, ALT 68 H, Alkaline Phosphatase 58, Total Protein 6.6, Albumin 2.5 L, Globulin 4.1, Albumin/Globulin Ratio 0.6 L, Lipase 3143 H 08/01/19 07:03: POC Glucose 147 H 08/01/19 12:32: POC Glucose 151 H 08/01/19 13:20: Urine Color Frida, Urine Clarity Cloudy, Urine pH 5.0, Ur Specific [place] 1.025, Urine Protein 30 H, Urine Glucose (UA) Normal, Urine Ketones 5 H, Urine Occult Blood 250 H, Urine Nitrite Negative, Urine Bilirubin 3 H, Urine Urobilinogen 4 H, Ur Leukocyte Esterase 100 H, Urine RBC 25-50 SEEN, Urine WBC 0-5 SEEN, Ur Squamous Epith Cells 0-5 SEEN, Urine Bacteria 2+, Urine Mucus RARE 08/01/19 17:30: POC Glucose 116 H 08/01/19 21:03: POC Glucose 139 H 08/02/19 06:31: POC Glucose 133 H 08/02/19 06:55: WBC 5.3, RBC 4.24, Hgb 11.2 L, Hct 36.7 L, MCV 86.6, MCH 26.4 L, MCHC 30.5 L, RDW Std Deviation 51.1 H, RDW Coeff of Varun 16.1 H, Plt Count 158, MPV 10.3, Immature Gran % (Auto) 0.800, Neut % (Auto) 73.8 H, Lymph % (Auto) 19.7, [place] % (Auto) 4.4, Eos % (Auto) 1.1, Baso % (Auto) 0.2, Absolute Neuts (auto) 3.9, Absolute Lymphs (auto) 1.04, Nucleated RBC % 0, Atypical Lymphocytes SCANNED 08/02/19 06:55: Sodium 137, Potassium 4.4, Chloride 111 H, Carbon Dioxide 20.0 L , Anion Gap 6, BUN 35 H, Creatinine 1.93 H, Estim Creat Clear Calc 37.50, Est GFR (MDRD) Af Amer 41 L, Est GFR (MDRD) Non-Af 34 L, BUN/Creatinine Ratio 18.1, Glucose 151 H, Calcium 6.6 L, Total Bilirubin 0.90, AST 57 H, ALT 36, Alkaline Phosphatase 47, Total Protein 5.8 L, Albumin 2.1 L, Globulin 3.7, Albumin/Globulin Ratio 0.6 L 08/02/19 06:55: Lipase 1647 H Clinical Impression(s) from Imaging Studies Lung Scan-VQ NM 07/30/19 19:39 IMPRESSION: 1. NORMAL 99m Tc MAA pulmonary perfusion imaging examination, according to PIOPED II interpretive criteria. (Sotsman et al, Radiology 246: 941, 2008 Sotsman et al, J Nucl Med 49: 1741, 2008). 2. Central clumping of the aerosol may be secondary to obstructive airway mechanics and or clinical tachypnea. Electronically Signed: Dequan Pérez, at 14:27 EDT Tel , Service support , Abdomen/Pelvis CT 08/01/19 10:15 IMPRESSION: Hepatomegaly with diffuse fatty infiltration. Diffuse enlargement of the pancreas with findings in keeping with acute pancreatitis with infiltration of the fat in the omentum as described. Ascites. Bibasilar infiltrates more prominent on the left side with the small left pleural effusion. Electronically Signed: Popeye Nichols, at 11:12 EDT , Service support , Renal Ultrasound 08/01/19 10:46 IMPRESSION: Normal ultrasound of the kidneys. Bladder wall thickening. Splenomegaly. Electronically Signed: Popeye Nichols, at 12:30 EDT , Service support , Current Medications Acetaminophen (Tylenol) 650 mg PO Q6H PRN PRN PRN Reason: Pain Score 1-10/Temp > 100.7 F Last Admin: 08/02/19 08:06 Dose: 650 mg Documented by: Dextrose (D50w Syringe) 0 gm IV X1 PRN; Protocol PRN Reason: Hypoglycemia Diltiazem HCl (Cardizem Cd) 180 mg PO DAILY [facility] Last Admin: 08/01/19 09:45 Dose: 180 mg Documented by: Enoxaparin Sodium (Lovenox) 40 mg SC DAILY [facility] Last Admin: 08/01/19 09:48 Dose: 40 mg Documented by: Glucagon () 1 mg IM .X1 PRN PRN Reason: Hypoglycemia Hydromorphone HCl (Dilaudid Inj) 1 mg IV Q3H PRN PRN PRN Reason: Pain Score 6-10/10 Last Admin: 08/02/19 06:51 Dose: 1 mg Documented by: Sodium Chloride () 250 mls @ 15 mls/hr IV .[id number] PRN PRN Reason: Saline Flush Sodium Chloride () 250 mls @ 15 mls/hr IV .[id number] PRN PRN Reason: Additional IVPB Infusion Sodium Chloride () 1,000 mls @ 200 mls/hr IV .Q5H [facility] Last Admin: 08/02/19 08:11 Dose: 150 mls/hr Documented by: Pantoprazole Sodium 40 mg/ (Sodium Chloride) 110 mls @ 330 mls/hr IV Q12 [facility] Last Infusion: 08/01/19 21:24 Dose: Infused Documented by: Insulin Human Lispro (Humalog Kwikpen (Bkc)) 0 unit SC ACHS [facility]; Protocol Last Admin: 08/02/19 07:00 Dose: Not Given Documented by: Metoprolol Tartrate (Lopressor (Beta Jaja)) 5 mg IV Q6 PRN PRN Reason: HR >110 Last Admin: 07/31/19 16:06 Dose: 5 mg Documented by: Ondansetron HCl (Zofran) 4 mg IV Q8H PRN PRN PRN Reason: NAUSEA/VOMITING Last Admin: 08/02/19 08:06 Dose: 4 mg Documented by: Promethazine HCl (Phenergan) 12.5 mg IV Q6H PRN PRN PRN Reason: NAUSEA/VOMITING Last Admin: 07/31/19 10:35 Dose: 12.5 mg Documented by: Sodium Chloride () 10 - 40 ml IV UD PRN PRN Reason: SALINE FLUSH Last Admin: 08/02/19 06:50 Dose: 20 ml Documented by: Zolpidem Tartrate (Ambien (Generic)) 5 mg PO QHS PRN PRN PRN Reason: INSOMNIA Last Admin: 07/31/19 00:51 Dose: 5 mg Documented by: Medical Necessity - Tobacco Use Smoking Status: Never smoker Tobacco Use: Non-smoker Assessment/Plan All Active Problems (Last Updated 07/30/19 @ 15:[address] Magdy Conn MD) Acute on chronic pancreatitis (Acute) New onset A. fib with RVR (Acute) This is a 23 years old female patient presented to the emergency room because of palpitation, shortness of breath and nausea and she was found to have new onset A. fib with RVR. After admission, she developed abdominal pain, found to have elevated lipase consistent with acute on chronic pancreatitis. Overnight, she developed acute renal failure and LFTs started to go up. #1 acute on chronic pancreatitis: Remains on n.p.o., IV fluids, IV Dilaudid for pain, IV Protonix and IV antiemetics. Abdominal pain continue to improve very slowly. Lipase is down to 1647, LFTs back to normal. Patient still slightly tachycardic, afebrile, blood pressure stable. CT scan abdomen and pelvis without contrast revealed hepatomegaly, diffuse enlargement of the pancreas with infiltration of the omental fat, ascites. She does have small left pleural effusion and bibasilar atelectasis, pneumonia is unlikely. Appreciate general surgery recommendations, recommended CorPak or TPN. Plan to continue same treatment, PICC line insertion, repeat CBC and BMP tomorrow morning. #2 new onset A. fib with RVR: Remains in sinus tachycardia, heart rate has been around 100, blood pressure stable. Dose of Cardizem CD adjusted by cardiology yesterday. She is on IV metoprolol as needed as well. Lovenox discontinued. Troponin was negative x2. Cardiology on the case, canceled the stress echocardiogram. 2D echocardiogram revealed ejection fraction of 65%, no other significant findings. #3 acute renal failure: Secondary to acute pancreatitis, dehydration. She has been on IV fluids. BUN is up to 35, creatinine is trending down to 1.93, improving. Nephrology on the case. Renal ultrasound revealed normal kidneys. Plan to increase IV fluids up to 200 cc/h, repeat BMP tomorrow morning. #4 hypocalcemia: Today's calcium is 6.6 mg/dl, serum albumin is 2.1 g/dL. Received 1 dose of IV calcium gluconate. Corrected calcium for albumin is 8.1 mg/dL. Plan to monitor. #5 type 2 diabetes mellitus: She is on n.p.o. She is only on sliding scale and Accu-Cheks. Blood sugar been stable. Hemoglobin A1c was 7%. Continue same treatment. #6 hypertension: Blood pressure stable, she is on Cardizem as above. #7 hyperlipidemia/hypertriglyceridemia: Keep holding TriCor. #8 history of pancreatitis: With acute flareup, plan as above. #9 depression: Keep holding sertraline for now. #10 DVT prophylaxis: Subcu Lovenox. This note was generated with [employer] dictation software. It may contain incorrect words, spelling, and punctuation that were not noted in checking the note before signing. Inpatient E&M: 86789 Subs Hosp L2
--- NOTE | 2019-08-02 09:29 | PN.CARD_ITS ---
Objective: Vital Signs Temp Pulse Resp BP Pulse Ox 98.7 F 105 H 24 H 113/62 90 08/02/19 06:47 08/02/19 06:52 08/02/19 07:43 08/02/19 06:47 08/02/19 07:00 Oxygen Flow Rate (L/min) 2 Oxygen Delivery Method Room Air Weight: 238 lb Body Mass Index (BMI) 42.1 Finger Stick Blood Glucose 105 Intake and Output for Last 24 Hours 07/31/19 08/01/19 08/02/19 23:59 23:59 23:59 Intake Total 4726.75 / 4726.75 4775.0 / 4775.0 1265.0 / 1265.0 Output Total 800 / 800 Balance 3926.75 / 3926.75 4775.0 / 4775.0 1265.0 / 1265.0 Denies any palpitation. Patient is in sinus tachycardia. Still having some pleuritic pain at the epigastric area. Shallow breath. Renal functions is im proving with dehydration. Etiologies of the pancreatitis is still unknown under investigation. General: Healthy Appearing, Alert, Oriented x 3 Neck: Supple Lungs: Clear to auscultation Cardiovascular: Regular Rhythm, Normal S1, Normal S2, No Murmurs Vascular: No Carotid Bruits Abdomen: Bowel Sounds Present, Guarding - Voluntary guarding in the epigastric area during palpation Neurological: No Focal Motor or Sensory Deficit Psych/Mental Status: Appropriate 08/01/19 13:20: Urine Color Frida, Urine Clarity Cloudy, Urine pH 5.0, Ur Specific [place] 1.025, Urine Protein 30 H, Urine Glucose (UA) Normal, Urine Ketones 5 H, Urine Occult Blood 250 H, Urine Nitrite Negative, Urine Bilirubin 3 H, Urine Urobilinogen 4 H, Ur Leukocyte Esterase 100 H, Urine RBC 25-50 SEEN, Urine WBC 0-5 SEEN 08/02/19 06:55: WBC 5.3, RBC 4.24, Hgb 11.2 L, Hct 36.7 L, MCV 86.6, MCH 26.4 L, MCHC 30.5 L, Plt Count 158, MPV 10.3, Immature Gran % (Auto) 0.800, Neut % (Auto) 73.8 H, Lymph % (Auto) 19.7, [place] % (Auto) 4.4, Eos % (Auto) 1.1, Baso % (Auto) 0.2, Absolute Neuts (auto) 3.9, Nucleated RBC % 0 08/02/19 06:55: Sodium 137, Potassium 4.4, Chloride 111 H, Carbon Dioxide 20.0 L , Anion Gap 6, BUN 35 H, Creatinine 1.93 H, Est GFR (MDRD) Af Amer 41 L, Est GFR (MDRD) Non-Af 34 L, BUN/Creatinine Ratio 18.1, Glucose 151 H, Calcium 6.6 L, Total Bilirubin 0.90 Rhythm: EKG: ECHO: Stress Test: Cardiac Cath: PCI: CT Surgery: Holter monitor: EPS: PPM: CXR: Chest CT Scan: Medical Necessity - Tobacco Use Smoking Status: Never smoker Tobacco Use: Non-smoker Assessment/Plan Paroxysmal atrial fibrillation still in normal sinus tachycardia. Patient is on Cardizem p.o. Continue same medication. No long-term oral anticoagulation needed
[2019-08-02] MEDS: Enoxaparin 40 MG/0.4 ML Syringe SC (09:52)
[2019-08-02] MEDS: dilTIAZem CD 180 MG Capsule PO (09:52)
--- NOTE | 2019-08-02 10:10 | PCM.PN.SRG ---
Patient Problems: Active and Suspected Problems (Last Updated 07/30/19 @ 15:[address] Magdy Conn MD) Acute on chronic pancreatitis (Acute) New onset A. fib with RVR (Acute) Subjective: Patient states her abdominal pain still 8/10, lipase has come down some, patient states is not taking quite as deep as breaths due to her abdominal pain, creatinine improved after 2 L bolus yesterday, due to shortness of breath IV fluids increased 150-200 instead of additional bolus currently - Physical Exam Vitals/I&O's: Vital Signs Temp Pulse Resp BP Pulse Ox 98.3 F 101 H 20 H 108/59 L 93 08/02/19 09:47 08/02/19 09:47 08/02/19 09:47 08/02/19 09:47 08/02/19 09:47 Oxygen Flow Rate (L/min) 2 Oxygen Delivery Method Room Air Weight: 238 lb Body Mass Index (BMI) 42.1 Finger Stick Blood Glucose 105 Intake and Output for Last 24 Hours 07/31/19 08/01/19 08/02/19 23:59 23:59 23:59 Intake Total 4726.75 / 4726.75 4775.0 / 4775.0 1522.5 / 1522.5 Output Total 800 / 800 Balance 3926.75 / 3926.75 4775.0 / 4775.0 1522.5 / 1522.5 General: Alert, Oriented x3, Cooperative Cardiovascular: Tachycardic Abdomen: Soft, Tender - Diffuse?mainly mid abdomen, rebound, voluntary guarding Laboratory Results 08/01/19 07:03: POC Glucose 147 H 08/01/19 12:32: POC Glucose 151 H 08/01/19 13:20: Urine Color Frida, Urine Clarity Cloudy, Urine pH 5.0, Ur Specific [place] 1.025, Urine Protein 30 H, Urine Glucose (UA) Normal, Urine Ketones 5 H, Urine Occult Blood 250 H, Urine Nitrite Negative, Urine Bilirubin 3 H, Urine Urobilinogen 4 H, Ur Leukocyte Esterase 100 H, Urine RBC 25-50 SEEN, Urine WBC 0-5 SEEN, Ur Squamous Epith Cells 0-5 SEEN, Urine Bacteria 2+, Urine Mucus RARE 08/01/19 17:30: POC Glucose 116 H 08/01/19 21:03: POC Glucose 139 H 08/02/19 06:31: POC Glucose 133 H 08/02/19 06:55: WBC 5.3, RBC 4.24, Hgb 11.2 L, Hct 36.7 L, MCV 86.6, MCH 26.4 L, MCHC 30.5 L, RDW Std Deviation 51.1 H, RDW Coeff of Varun 16.1 H, Plt Count 158, MPV 10.3, Immature Gran % (Auto) 0.800, Neut % (Auto) 73.8 H, Lymph % (Auto) 19.7, [place] % (Auto) 4.4, Eos % (Auto) 1.1, Baso % (Auto) 0.2, Absolute Neuts (auto) 3.9, Absolute Lymphs (auto) 1.04, Nucleated RBC % 0, Atypical Lymphocytes SCANNED 08/02/19 06:55: Sodium 137, Potassium 4.4, Chloride 111 H, Carbon Dioxide 20.0 L, Anion Gap 6, BUN 35 H, Creatinine 1.93 H, Estim Creat Clear Calc 37.50, Est GFR (MDRD) Af Amer 41 L, Est GFR (MDRD) Non-Af 34 L, BUN/Creatinine Ratio 18.1, Glucose 151 H, Calcium 6.6 L, Total Bilirubin 0.90, AST 57 H, ALT 36, Alkaline Phosphatase 47, Total Protein 5.8 L, Albumin 2.1 L, Globulin 3.7, Albumin/Globulin Ratio 0.6 L 08/02/19 06:55: Lipase 1647 H Current Medications Acetaminophen (Tylenol) 650 mg PO Q6H PRN PRN PRN Reason: Pain Score 1-10/Temp > 100.7 F Last Admin: 08/02/19 08:06 Dose: 650 mg Documented by: Dextrose (D50w Syringe) 0 gm IV X1 PRN; Protocol PRN Reason: Hypoglycemia Diltiazem HCl (Cardizem Cd) 180 mg PO DAILY [facility] Last Admin: 08/02/19 09:52 Dose: 180 mg Documented by: Enoxaparin Sodium (Lovenox) 40 mg SC DAILY [facility] Last Admin: 08/02/19 09:52 Dose: 40 mg Documented by: Glucagon () 1 mg IM .X1 PRN PRN Reason: Hypoglycemia Hydromorphone HCl (Dilaudid Inj) 1 mg IV Q3H PRN PRN PRN Reason: Pain Score 6-10/10 Last Admin: 08/02/19 09:59 Dose: 1 mg Documented by: Sodium Chloride () 250 mls @ 15 mls/hr IV .[id number] PRN PRN Reason: Saline Flush Sodium Chloride () 250 mls @ 15 mls/hr IV .[id number] PRN PRN Reason: Additional IVPB Infusion Sodium Chloride () 1,000 mls @ 200 mls/hr IV .Q5H [facility] Last Infusion: 08/02/19 09:54 Dose: 200 mls/hr Documented by: Pantoprazole Sodium 40 mg/ (Sodium Chloride) 110 mls @ 330 mls/hr IV Q12 [facility] Last Admin: 08/02/19 09:52 Dose: 330 mls/hr Documented by: Insulin Human Lispro (Humalog Kwikpen (Bkc)) 0 unit SC ACHS [facility]; Protocol Last Admin: 08/02/19 07:00 Dose: Not Given Documented by: Metoprolol Tartrate (Lopressor (Beta Jaja)) 5 mg IV Q6 PRN PRN Reason: HR >110 Last Admin: 07/31/19 16:06 Dose: 5 mg Documented by: Ondansetron HCl (Zofran) 4 mg IV Q8H PRN PRN PRN Reason: NAUSEA/VOMITING Last Admin: 08/02/19 08:06 Dose: 4 mg Documented by: Promethazine HCl (Phenergan) 12.5 mg IV Q6H PRN PRN PRN Reason: NAUSEA/VOMITING Last Admin: 07/31/19 10:35 Dose: 12.5 mg Documented by: Sodium Chloride () 10 - 40 ml IV UD PRN PRN Reason: SALINE FLUSH Last Admin: 08/02/19 09:59 Dose: 10 ml Documented by: Zolpidem Tartrate (Ambien (Generic)) 5 mg PO QHS PRN PRN PRN Reason: INSOMNIA Last Admin: 07/31/19 00:51 Dose: 5 mg Documented by: Medical Necessity - Tobacco Use Smoking Status: Never smoker Tobacco Use: Non-smoker Assessment/Plan All Active Problems (Last Updated 07/30/19 @ 15:[address] Magdy Conn MD) Acute on chronic pancreatitis (Acute) New onset A. fib with RVR (Acute) 23-year-old female with acute pancreatitis, history of pancreatitis 1. CT shows a lot of inflammation around the pancreas, patient will need CorPak or TPN. Patient would prefer TPN did put an order for PICC line. No current plans for surgical intervention. 2. Creatinine down to 1.94 from 3, IV fluids up from 150-200 due to shortness of breath no additional bolus given at this time 3. Pain control change Dilaudid to 1 mg IV every 2 hours as needed as this may be the cause of her shortness of breath due to the abdominal pain. Claire Moser M.D. Pager: [phone] [facility] [address] [place] [address], [facility], [address] [place] [address] Office: [phone]
--- NOTE | 2019-08-02 11:46 | PCM.NTREPORT ---
Nutrition Therapy Report - History Nutrition Services has been consulted to:: Manage nutrient details of diet order Current diet / nutrition support order:: NPO day #3. - Anthropometric Measurements Height:: 5 ft 3 in Weight:: 107.955 kg Body Mass Index (BMI):: 42.1 - Relevant Labs Relevant Labs:: WBC 11.7 K/mm3 (4.4-11.0) H 07/31/19 05:13 RBC 5.55 M/mm3 (4.2-5.4) H 08/01/19 05:32 Hgb 11.2 g/dL (12.0-15.0) L 08/02/19 06:55 Hct 36.7 % (37-47) L 08/02/19 06:55 MCH 26.4 pg (27.0-32.0) L 08/02/19 06:55 MCHC 30.5 g/dL (32-36) L 08/02/19 06:55 RDW Std Deviation 51.1 fl (35.1-43.9) H 08/02/19 06:55 RDW Coeff of Varun 16.1 % (11.6-14.6) H 08/02/19 06:55 Neut % (Auto) 73.8 % (47-70) H 08/02/19 06:55 Lymph % (Auto) 7.2 % (19-41) L 07/31/19 05:13 Absolute Neuts (auto) 10.4 X10^3/uL (2.0-7.7) H 07/31/19 05:13 D-Dimer Quant (PE/DVT) 1.06 FEU/ug/m (0.27-0.49) H* 07/30/19 12:49 Sodium 135 mmol/L (136-145) L 08/01/19 05:32 Potassium 5.4 mmol/L (3.5-5.1) H 07/31/19 05:13 Chloride 111 mmol/L (98-107) H 08/02/19 06:55 Carbon Dioxide 20.0 mmol/L (21.0-32.0) L 08/02/19 06:55 BUN 35 mg/dL (7-18) H 08/02/19 06:55 Creatinine 1.93 mg/dL (0.55-1.02) H 08/02/19 06:55 Est GFR (MDRD) Af Amer 41 mL/min (>60) L 08/02/19 06:55 Est GFR (MDRD) Non-Af 34 mL/min (>60) L 08/02/19 06:55 Glucose 151 mg/dL (74-106) H 08/02/19 06:55 Hemoglobin A1c 7.0 % (4.2-6.3) H 07/30/19 12:49 Calcium 6.6 mg/dL (8.5-10.1) L 08/02/19 06:55 Total Bilirubin 1.60 mg/dL (0.20-1.00) H 08/01/19 05:32 AST 57 U/L (15-37) H 08/02/19 06:55 ALT 68 U/L (13-56) H 08/01/19 05:32 Troponin I < 0.150 ng/mL (<0.045) H 07/30/19 12:49 C-React Prot Ext Range 3.35 mg/L (0.0-3.0) H 07/30/19 19:25 Total Protein 5.8 g/dL (6.4-8.2) L 08/02/19 06:55 Albumin 2.1 g/dL (3.2-5.0) L 08/02/19 06:55 Albumin/Globulin Ratio 0.6 RATIO (0.9-2.4) L 08/02/19 06:55 Triglycerides 1577 mg/dL (-199) H 07/30/19 12:49 HDL Cholesterol 12 mg/dL (40-) L 07/30/19 12:49 Lipase 1647 U/L (73-393) H 08/02/19 06:55 TSH 3.99 uIU/mL (0.358-3.74) H 07/30/19 12:49 - Assessment Food / Nutrition-Related History:: Pt experiencing acute on chronic pancreatitis at this time. RDN received consult for TPN. 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 Per [facility] Parenteral nutrition care guidelines: Parenteral nutrition support would be indicated after 7 days in well-nourished, stable patients who are unable to achieve 50% of estimated nutrient requirements orally or enterally. Pt w/ PICC line in place. Pt reports nausea w/ last episode of vomiting 07/30, no emesis since. Reports experiencing diarrhea. CT scan of abdomen/pelvis re:hepatomegaly, diffuse enlargement of the pancreas with infiltration of the omental fat, ascites. Pt states 12 weeks and is not currently . Wt prior to 200#, CBW 238#. Does not follow special diet. Does not SMBG. Per EMR states abdominal pain 10/26. Triglyceride upon admin 07/29:1577 mg/dl; Lipase 08/01: 1647 mg/dl; Alkaline Phos 08/01:47 mg/dl (WNL); A1C 07/29 7%. - Nutrition Diagnosis Evidence of Malnutrition Exists:: No - Nutrition Intervention Nutrition Prescription:: [id number] calories, 70-80 grams protein - Food / Nutrient Delivery Interventions Summary of nutrition intervention:: Pt NPO day #3. Per [facility] Parenteral nutrition care guidelines: Parenteral nutrition support would be indicated after 7 days (NPO day #7) in well-nourished, stable patients who are unable to achieve 50% of estimated nutrient requirements orally or enterally. Pt well-nourished w/ good intake prior to admission. Nutrition support ordered as / adjusted to:: Please consult dietitian for intiation of TPN as indicated per MD. Nutrition education provided?: No - MNT Monitoring Further MNT monitoring and evaluation required?: Yes MNT Follow-up in:: 3-5 days - Please call RDN at [phone] as needed.
[2019-08-02 12:11] LABS: Bedside Glucose 121 mg/dL (70-110)
[2019-08-02] MEDS: 0.9% Normal Saline 1,000 ML 200 ML IV ×2 (14:47→20:36)
--- NOTE | 2019-08-02 16:47 | PCM.PN.REN ---
Patient Problems: Active and Suspected Problems (Last Updated 07/30/19 @ 15:[address] Magdy Conn MD) New onset A. fib with RVR (Acute) Subjective: Patient still complaining of abdominal pain. She cannot breathe deeply due to abdominal pain Denied nausea vomiting. No chest pain Still n.p.o. She is making urine - Physical Exam Vitals/I&O's: Vital Signs Temp Pulse Resp BP Pulse Ox 98.2 F 96 18 112/62 93 08/02/19 14:56 08/02/19 15:08 08/02/19 14:56 08/02/19 14:56 08/02/19 14:56 Oxygen Flow Rate (L/min) 2 Oxygen Delivery Method Room Air Weight: 107.955 kg Body Mass Index (BMI) 42.1 Finger Stick Blood Glucose 105 Intake and Output for Last 24 Hours 07/31/19 08/01/19 08/02/19 23:59 23:59 23:59 Intake Total 4726.75 / 4726.75 4775.0 / 4775.0 2495.0 / 2495.0 Output Total 800 / 800 Balance 3926.75 / 3926.75 4775.0 / 4775.0 2495.0 / 2495.0 General: Alert, Oriented x3 HEENT: Atraumatic Oral: Moist Mucosa Neck: Supple, No JVD Lungs: Clear to auscultation, Normal air movement, No rhonchi Cardiovascular: Regular rate, Regular Rhythm, Normal S1, Normal S2 Abdomen: - - Distended, positive bowel sounds, epigastric tenderness Extremities: No clubbing, No cyanosis, Edema - Trace edema of lower extremity Skin: No rashes Musculoskeletal: No Tenderness to Palpation of Joints or Extremities Lymphatic: No Cervical, Supraclavicular, or Inguinal Adenopathy Neurological: Cranial nerves II-XII grossly intact, Neuro grossly intact Psych/Mental Status: Normal Affect Laboratory Results 08/01/19 07:03: POC Glucose 147 H 08/01/19 17:30: POC Glucose 116 H 08/01/19 21:03: POC Glucose 139 H 08/02/19 06:31: POC Glucose 133 H 08/02/19 06:55: WBC 5.3, RBC 4.24, Hgb 11.2 L, Hct 36.7 L, MCV 86.6, MCH 26.4 L, MCHC 30.5 L, RDW Std Deviation 51.1 H, RDW Coeff of Varun 16.1 H, Plt Count 158, MPV 10.3, Immature Gran % (Auto) 0.800, Neut % (Auto) 73.8 H, Lymph % (Auto) 19.7, [place] % (Auto) 4.4, Eos % (Auto) 1.1, Baso % (Auto) 0.2, Absolute Neuts (auto) 3.9, Absolute Lymphs (auto) 1.04, Nucleated RBC % 0, Atypical Lymphocytes SCANNED 08/02/19 06:55: Sodium 137, Potassium 4.4, Chloride 111 H, Carbon Dioxide 20.0 L, Anion Gap 6, BUN 35 H, Creatinine 1.93 H, Estim Creat Clear Calc 37.50, Est GFR (MDRD) Af Amer 41 L, Est GFR (MDRD) Non-Af 34 L, BUN/Creatinine Ratio 18.1, Glucose 151 H, Calcium 6.6 L, Total Bilirubin 0.90, AST 57 H, ALT 36, Alkaline Phosphatase 47, Total Protein 5.8 L, Albumin 2.1 L, Globulin 3.7, Albumin/Globulin Ratio 0.6 L 08/02/19 06:55: Lipase 1647 H 08/02/19 12:01: POC Glucose 121 H Current Medications Acetaminophen (Tylenol) 650 mg PO Q6H PRN PRN PRN Reason: Pain Score 1-10/Temp > 100.7 F Last Admin: 08/02/19 08:06 Dose: 650 mg Documented by: Dextrose (D50w Syringe) 0 gm IV X1 PRN; Protocol PRN Reason: Hypoglycemia Diltiazem HCl (Cardizem Cd) 180 mg PO DAILY [facility] Last Admin: 08/02/19 09:52 Dose: 180 mg Documented by: Enoxaparin Sodium (Lovenox) 40 mg SC DAILY [facility] Last Admin: 08/02/19 09:52 Dose: 40 mg Documented by: Glucagon () 1 mg IM .X1 PRN PRN Reason: Hypoglycemia Hydromorphone HCl (Dilaudid Inj) 1 mg IV Q2H PRN PRN PRN Reason: Pain Score 6-10/10 Last Admin: 08/02/19 14:47 Dose: 1 mg Documented by: Sodium Chloride () 250 mls @ 15 mls/hr IV .[id number] PRN PRN Reason: Saline Flush Sodium Chloride () 250 mls @ 15 mls/hr IV .[id number] PRN PRN Reason: Additional IVPB Infusion Sodium Chloride () 1,000 mls @ 200 mls/hr IV .Q5H [facility] Last Admin: 08/02/19 14:47 Dose: 200 mls/hr Documented by: Pantoprazole Sodium 40 mg/ (Sodium Chloride) 110 mls @ 330 mls/hr IV Q12 [facility] Last Infusion: 08/02/19 10:19 Dose: Infused Documented by: Insulin Human Lispro (Humalog Kwikpen (Bkc)) 0 unit SC ACHS [facility]; Protocol Last Admin: 08/02/19 12:01 Dose: Not Given Documented by: Metoprolol Tartrate (Lopressor (Beta Jaja)) 5 mg IV Q6 PRN PRN Reason: HR >110 Last Admin: 07/31/19 16:06 Dose: 5 mg Documented by: Ondansetron HCl (Zofran) 4 mg IV Q8H PRN PRN PRN Reason: NAUSEA/VOMITING Last Admin: 08/02/19 08:06 Dose: 4 mg Documented by: Promethazine HCl (Phenergan) 12.5 mg IV Q6H PRN PRN PRN Reason: NAUSEA/VOMITING Last Admin: 07/31/19 10:35 Dose: 12.5 mg Documented by: Sodium Chloride () 10 - 40 ml IV UD PRN PRN Reason: SALINE FLUSH Last Admin: 08/02/19 09:59 Dose: 10 ml Documented by: Zolpidem Tartrate (Ambien (Generic)) 5 mg PO QHS PRN PRN PRN Reason: INSOMNIA Last Admin: 07/31/19 00:51 Dose: 5 mg Documented by: Medical Necessity - Tobacco Use Smoking Status: Never smoker Tobacco Use: Non-smoker Assessment/Plan All Active Problems (Last Updated 07/30/19 @ 15:[address] Magdy Conn MD) Acute on chronic pancreatitis (Acute) New onset A. fib with RVR (Acute) KIM -normal baseline creatinine. UA shows RBCs 25-50, 30 protein. KIM is likely prerenal from dehydration. Serum creatinine peaked at 3.0 on July 31. Kidney function improved with volume expansion. Serum creatinine today is 1.9. Doubt another etiology of acute kidney injury. Will repeat UA next week to make sure hematuria resolved Okay to continue IV fluids. My decrease the rate to 150 mL/h. No indication for replacement therapy. We will continue to monitor renal function panel, volume status and electrolytes. Metabolic acidosis NAG. KIM. Bicarb level improved from 12 yesterday to 20 today. No need for replacement Hypocalcemia. Asymptomatic. Please avoid calcium replacement in pancreatitis unless symptomatic Acute on chronic pancreatitis. Remains n.p.o.. Surgery team is following. Will need TPN Renal team will continue to follow. Please call if any question at [phone] Joseph Gomez MD
[2019-08-02 17:10] LABS: Bedside Glucose 111 mg/dL (70-110)
[2019-08-02 21:31] LABS: Bedside Glucose 98 mg/dL (70-110)
[2019-08-02 23:20] LABS: Bedside Glucose 86 mg/dL (70-110)
[2019-08-03] VITALS (12 sets, daily range): BP systolic 106–119; BP diastolic 49–67; PULSE 92–106; RESP 16–20; TEMP 36.8–39.3; O2SAT 91–95
[2019-08-03] MEDS: 0.9% Saline Lock 10 ML Syringe IV ×9 (00:04→23:25)
[2019-08-03] MEDS: HYDROmorphone 1 MG/ML Syringe IV ×11 (00:04→23:25)
[2019-08-03] MEDS: 0.9% Normal Saline 1,000 ML 200 ML IV ×4 (01:42→19:21)
[2019-08-03] MEDS: Acetaminophen 325 MG Tablet 650 MG PO ×2 (04:56→23:36)
[2019-08-03 06:13] LABS: Basophil# 0.02 X10^3/uL; Basophil% 0.4 % (0-1); Eosinophil# 0.08 X10^3/uL; Eosinophils% 1.5 % (0-5); Hematocrit 31.2 % (37-47); Hemoglobin 9.6 g/dL (12.0-15.0); Lymphocyte % 16.7 % (19-41); Mean Corp Hgb Conc 30.8 g/dL (32-36); Mean Corpuscular Volume 87.6 fL (81-99); Mean Platelet Vol. 10.7 fl (6.2-12.0); Monocyte# 0.32 X10^3/uL; Monocyte% 5.9 % (0-10); NRBC Flagged by Analyzer 0 % (0-5); Neutrophil # 4.03 X10^3/uL (2.7-7.7); Neutrophil % 74.6 % (47-70); POSITIVE MORPHOLOGY YES; Platelet Count 141 K/mm3 (150-450); RBC Distribution Width CV 15.9 % (11.6-14.6); RBC Distribution Width SD 51.5 fl (35.1-43.9); Red Blood Count 3.56 M/mm3 (4.2-5.4); White Blood Count 5.4 K/mm3 (4.4-11.0)
[2019-08-03 06:17] LABS: Anion Gap 9 (5-15); BUN 22 mg/dL (7-18); Chloride 109 mmol/L (98-107); EST Glomerular Filtration Rate 65 mL/min (>60); Est Glom Filt Rate - Afr Amer 79 mL/min (>60); Glucose 128 mg/dL (74-106); Sodium Level 136 mmol/L (136-145)
[2019-08-03 06:29] LABS: Differential Indicated SCAN CRITERIA MET
[2019-08-03 06:46] LABS: Bedside Glucose 125 mg/dL (70-110)
[2019-08-03 08:39] LABS: Differential Comment SCANNED
--- NOTE | 2019-08-03 08:46 | RAD_ITS ---
STUDY: X-RAY CHEST REASON FOR EXAM: Female, 23 years old. Pancreatitis -- fever TECHNIQUE: Frontal view COMPARISON: July 30, 2019. FINDINGS: The lungs are fully expanded. Bilateral basilar infiltrate/atelectasis. Normal size heart. Normal mediastinum and gwen. Normal visualized pulmonary arteries. Normal visualized aortic arch and descending thoracic aorta. Normal visualized thoracic spine. Normal visualized ribs, clavicles, and shoulders. There is no demonstrated abnormality of the visualized soft tissue structures of the upper abdomen. RAD/Chest PA and Lateral IMPRESSION: Bilateral basilar infiltrate/atelectasis. Electronically Signed: Bulmaro Dumas DO at 17:38 EDT Tel [phone], Service support ,
--- NOTE | 2019-08-03 08:49 | PN_ITS ---
Patient Problems: Active and Suspected Problems (Last Updated 07/30/19 @ 15:[address] Magdy Conn MD) New onset A. fib with RVR (Acute) Subjective: Chief complaint: Follow-up after admission for acute on chronic pancreatitis, new onset A. fib with RVR and after admission, patient developed acute renal failure. Patient seen and examined. No acute events overnight. This morning, she had a spike of fever of 102.4 Fahrenheit. Patient mentioned that abdominal pain is improving as yesterday, no nausea or vomiting. Although she looked slightly short of breath, she denied cough or sputum production. Apart from fever early this morning, other vital signs are stable. - Physical Exam Vitals/I&O's: Vital Signs Temp Pulse Resp BP Pulse Ox 99.4 F H 92 19 H 119/60 91 08/03/19 06:39 08/03/19 06:55 08/03/19 06:39 08/03/19 06:39 08/03/19 07:20 Oxygen Flow Rate (L/min) 2 Oxygen Delivery Method Room Air Weight: 238 lb Body Mass Index (BMI) 42.1 Finger Stick Blood Glucose 105 Intake and Output for Last 24 Hours 08/01/19 08/02/19 08/03/19 23:59 23:59 23:59 Intake Total 4775.0 / 4775.0 4571.67 / 4571.67 1573.33 / 1573.33 Balance 4775.0 / 4775.0 4571.67 / 4571.67 1573.33 / 1573.33 General: Alert, Oriented x3, Cooperative, - - Mildly short of breath. HEENT: Atraumatic, PERRLA, EOMI, Normocephalic Oral: Moist Mucosa, No Gingival or Mucosal Lesions/ Ulcerations Neck: Supple, No JVD, Negative Carotid Bruits, Trachea Midline, Thyroid Normal Size and Texture Lungs: No rhonchi, No wheeze, No rales, Diminished, Short of Breath, - - Decreased breath sounds at the bases, otherwise clear. Cardiovascular: Regular rate, Regular Rhythm, Normal S1, Normal S2, PMI Normal, Tachycardic Abdomen: Bowel Sounds Present, Soft, Non-Distended, No Hepato-splenomegaly, Obese, Tender - No guarding or rigidity. Extremities: No clubbing, No cyanosis, No edema Skin: No rashes, No breakdown Lymphatic: No Cervical, Supraclavicular, or Inguinal Adenopathy Neurological: Cranial nerves II-XII grossly intact, Neuro grossly intact Psych/Mental Status: Normal Affect, Appropriate, Alert and oriented to time, place, person, mood and affect Laboratory Results 08/02/19 12:01: POC Glucose 121 H 08/02/19 17:01: POC Glucose 111 H 08/02/19 21:26: POC Glucose 98 08/02/19 23:17: POC Glucose 86 08/03/19 05:40: WBC 5.4, RBC 3.56 L, Hgb 9.6 L, Hct 31.2 L, MCV 87.6, MCH 27.0, MCHC 30.8 L, RDW Std Deviation 51.5 H, RDW Coeff of Varun 15.9 H, Plt Count 141 L, MPV 10.7, Immature Gran % (Auto) 0.900, Neut % (Auto) 74.6 H, Lymph % (Auto) 16.7 L, [place] % (Auto) 5.9, Eos % (Auto) 1.5, Baso % (Auto) 0.4, Absolute Neuts (auto) 4.0, Absolute Lymphs (auto) 0.90, Nucleated RBC % 0, Differential Comment SCANNED 08/03/19 05:40: Sodium 136, Potassium 4.0, Chloride 109 H, Carbon Dioxide 18.0 L , Anion Gap 9, BUN 22 H, Creatinine 1.10 H, Estim Creat Clear Calc 65.80, Est GFR (MDRD) Af Amer 79, Est GFR (MDRD) Non-Af 65, BUN/Creatinine Ratio 20.0, Glucose 128 H, Calcium 7.0 L 08/03/19 06:37: POC Glucose 125 H Current Medications Acetaminophen (Tylenol) 650 mg PO Q6H PRN PRN PRN Reason: Pain Score 1-10/Temp > 100.7 F Last Admin: 08/03/19 04:56 Dose: 650 mg Documented by: Dextrose (D50w Syringe) 0 gm IV X1 PRN; Protocol PRN Reason: Hypoglycemia Diltiazem HCl (Cardizem Cd) 180 mg PO DAILY [facility] Last Admin: 08/02/19 09:52 Dose: 180 mg Documented by: Enoxaparin Sodium (Lovenox) 40 mg SC DAILY [facility] Last Admin: 08/02/19 09:52 Dose: 40 mg Documented by: Glucagon () 1 mg IM .X1 PRN PRN Reason: Hypoglycemia Hydromorphone HCl (Dilaudid Inj) 1 mg IV Q2H PRN PRN PRN Reason: Pain Score 6-10/10 Last Admin: 08/03/19 06:51 Dose: 1 mg Documented by: Sodium Chloride () 250 mls @ 15 mls/hr IV .[id number] PRN PRN Reason: Saline Flush Sodium Chloride () 250 mls @ 15 mls/hr IV .[id number] PRN PRN Reason: Additional IVPB Infusion Sodium Chloride () 1,000 mls @ 200 mls/hr IV .Q5H [facility] Last Admin: 08/03/19 06:56 Dose: 200 mls/hr Documented by: Pantoprazole Sodium 40 mg/ (Sodium Chloride) 110 mls @ 330 mls/hr IV Q12 [facility] Last Infusion: 08/02/19 21:51 Dose: Infused Documented by: Insulin Human Lispro (Humalog Kwikpen (Bkc)) 0 unit SC [facility]; Protocol Last Admin: 08/03/19 06:54 Dose: Not Given Documented by: Metoprolol Tartrate (Lopressor (Beta Jaja)) 5 mg IV Q6 PRN PRN Reason: HR >110 Last Admin: 07/31/19 16:06 Dose: 5 mg Documented by: Ondansetron HCl (Zofran) 4 mg IV Q8H PRN PRN PRN Reason: NAUSEA/VOMITING Last Admin: 08/02/19 08:06 Dose: 4 mg Documented by: Promethazine HCl (Phenergan) 12.5 mg IV Q6H PRN PRN PRN Reason: NAUSEA/VOMITING Last Admin: 07/31/19 10:35 Dose: 12.5 mg Documented by: Sodium Chloride () 10 - 40 ml IV UD PRN PRN Reason: SALINE FLUSH Last Admin: 08/03/19 06:51 Dose: 20 ml Documented by: Zolpidem Tartrate (Ambien (Generic)) 5 mg PO QHS PRN PRN PRN Reason: INSOMNIA Last Admin: 07/31/19 00:51 Dose: 5 mg Documented by: Medical Necessity - Tobacco Use Smoking Status: Never smoker Tobacco Use: Non-smoker Assessment/Plan All Active Problems (Last Updated 07/30/19 @ 15:[address] Magdy Conn MD) Acute on chronic pancreatitis (Acute) New onset A. fib with RVR (Acute) This is a 23 years old female patient presented to the emergency room because of palpitation, shortness of breath and nausea and she was found to have new onset A. fib with RVR. After admission, she developed abdominal pain, found to have elevated lipase consistent with acute on chronic pancreatitis. Overnight, she developed acute renal failure and LFTs started to go up. #1 acute on chronic pancreatitis: Remains on n.p.o., IV fluids, IV Dilaudid for pain, IV Protonix and IV antiemetics. Abdominal pain continue to improve slowly, no nausea or vomiting. She started having spikes of fever. Lipase is down to 1647, LFTs back to normal. Heart rate has been around 100, blood pressure stable, pulse ox is 93% on room air. CT scan abdomen and pelvis without contrast revealed hepatomegaly, diffuse enlargement of the pancreas with infiltration of the omental fat, ascites. She does have small left pleural eff usion and bibasilar atelectasis, pneumonia is unlikely. Plan to continue same treatment. #2 fever: CT abdomen revealed bilateral basilar infiltrate which could be atelectasis with small left pleural effusion. Today, he developed fever and pneumonia cannot be ruled out. Patient denied any cough or sputum production, reported minimal shortness of breath as yesterday. Chest x-ray done today and revealed bilateral basilar opacities, could be due to atelectasis and pneumonia cannot be ruled out. Plan: Blood culture, start IV Zosyn empirically. #3 new onset A. fib with RVR: Remains in sinus tachycardia, heart rate has been around 100, blood pressure stable. She is on p.o. Cardizem. She is on IV metoprolol as needed as well. Lovenox discontinued. Troponin was negative x2. Cardiology on the case, canceled the stress echocardiogram. 2D echocardiogram revealed ejection fraction of 65%, no other significant findings. #4 acute renal failure: Secondary to acute pancreatitis, dehydration. She has been on IV fluids. BUN is trending down to 22, creatinine is trending down to 1.10, improving. Nephrology on the case. Renal ultrasound revealed normal kidneys. Plan to continue same treatment. #5 hypocalcemia: Today's calcium is 7 mg/dl, serum albumin is 2.1 g/dL. Received 1 dose of IV calcium gluconate. Corrected calcium for albumin is normal. #6 type 2 diabetes mellitus: She is on n.p.o. She is only on sliding scale and Accu-Cheks. Blood sugar been stable. Hemoglobin A1c was 7%. Continue same treatment. #7 hypertension: Blood pressure stable, she is on Cardizem as above. #8 hyperlipidemia/hypertriglyceridemia: Keep holding TriCor. #9 history of pancreatitis: With acute flareup, plan as above. #10 depression: Keep holding sertraline for now. #11 DVT prophylaxis: Subcu Lovenox. This note was generated with [employer] dictation software. It may contain incorrect words, spelling, and punctuation that were not noted in checking the note before signing. Inpatient E&M: 78935 Subs Hosp L2
[2019-08-03] MEDS: Enoxaparin 40 MG/0.4 ML Syringe SC (09:03)
[2019-08-03] MEDS: dilTIAZem CD 180 MG Capsule PO (09:03)
--- NOTE | 2019-08-03 09:10 | PN.SURG_ITS ---
Patient Problems: Active and Suspected Problems (Last Updated 07/30/19 @ 15:[address] Magdy Conn MD) New onset A. fib with RVR (Acute) Subjective: Patient states the pain is a little better 7/10 with increased of the Dilaudid to every 2 hours as needed, patient denies any increased pain with the sips of water/ice chips, patient is not interested in a CorPak. - Physical Exam Vitals/I&O's: Vital Signs Temp Pulse Resp BP Pulse Ox 98.5 F 92 18 114/67 93 08/03/19 09:00 08/03/19 09:00 08/03/19 09:00 08/03/19 09:00 08/03/19 09:00 Oxygen Flow Rate (L/min) 2 Oxygen Delivery Method Room Air Weight: 238 lb Body Mass Index (BMI) 42.1 Finger Stick Blood Glucose 105 Intake and Output for Last 24 Hours 08/01/19 08/02/19 08/03/19 23:59 23:59 23:59 Intake Total 4775.0 / 4775.0 4571.67 / 4571.67 1573.33 / 1573.33 Balance 4775.0 / 4775.0 4571.67 / 4571.67 1573.33 / 1573.33 General: Alert, Oriented x3, Cooperative HEENT: Atraumatic Abdomen: Soft, Distended - Mild, Tender - Diffuse, mild rebound, no guarding Laboratory Results 08/02/19 12:01: POC Glucose 121 H 08/02/19 17:01: POC Glucose 111 H 08/02/19 21:26: POC Glucose 98 08/02/19 23:17: POC Glucose 86 08/03/19 05:40: WBC 5.4, RBC 3.56 L, Hgb 9.6 L, Hct 31.2 L, MCV 87.6, MCH 27.0, MCHC 30.8 L, RDW Std Deviation 51.5 H, RDW Coeff of Varun 15.9 H, Plt Count 141 L, MPV 10.7, Immature Gran % (Auto) 0.900, Neut % (Auto) 74.6 H, Lymph % (Auto) 16.7 L, [place] % (Auto) 5.9, Eos % (Auto) 1.5, Baso % (Auto) 0.4, Absolute Neuts (auto) 4.0, Absolute Lymphs (auto) 0.90, Nucleated RBC % 0, Differential Comment SCANNED 08/03/19 05:40: Sodium 136, Potassium 4.0, Chloride 109 H, Carbon Dioxide 18.0 L , Anion Gap 9, BUN 22 H, Creatinine 1.10 H, Estim Creat Clear Calc 65.80, Est GFR (MDRD) Af Amer 79, Est GFR (MDRD) Non-Af 65, BUN/Creatinine Ratio 20.0, Glucose 128 H, Calcium 7.0 L 08/03/19 06:37: POC Glucose 125 H Current Medications Acetaminophen (Tylenol) 650 mg PO Q6H PRN PRN PRN Reason: Pain Score 1-10/Temp > 100.7 F Last Admin: 08/03/19 04:56 Dose: 650 mg Documented by: Dextrose (D50w Syringe) 0 gm IV X1 PRN; Protocol PRN Reason: Hypoglycemia Diltiazem HCl (Cardizem Cd) 180 mg PO DAILY [facility] Last Admin: 08/03/19 09:03 Dose: 180 mg Documented by: Enoxaparin Sodium (Lovenox) 40 mg SC DAILY [facility] Last Admin: 08/03/19 09:03 Dose: 40 mg Documented by: Glucagon () 1 mg IM .X1 PRN PRN Reason: Hypoglycemia Hydromorphone HCl (Dilaudid Inj) 1 mg IV Q2H PRN PRN PRN Reason: Pain Score 6-10/10 Last Admin: 08/03/19 09:01 Dose: 1 mg Documented by: Sodium Chloride () 250 mls @ 15 mls/hr IV .[id number] PRN PRN Reason: Saline Flush Sodium Chloride () 250 mls @ 15 mls/hr IV .[id number] PRN PRN Reason: Additional IVPB Infusion Sodium Chloride () 1,000 mls @ 200 mls/hr IV .Q5H [facility] Last Admin: 08/03/19 06:56 Dose: 200 mls/hr Documented by: Pantoprazole Sodium 40 mg/ (Sodium Chloride) 110 mls @ 330 mls/hr IV Q12 [facility] Last Admin: 08/03/19 09:02 Dose: 330 mls/hr Documented by: Insulin Human Lispro (Humalog Kwikpen (Bkc)) 0 unit SC ACHS [facility]; Protocol Last Admin: 08/03/19 06:54 Dose: Not Given Documented by: Metoprolol Tartrate (Lopressor (Beta Jaja)) 5 mg IV Q6 PRN PRN Reason: HR >110 Last Admin: 07/31/19 16:06 Dose: 5 mg Documented by: Nutritional Formula (Lactose Free) (Ensure Clear) 120 ml PO TIDCM [facility] Ondansetron HCl (Zofran) 4 mg IV Q8H PRN PRN PRN Reason: NAUSEA/VOMITING Last Admin: 08/02/19 08:06 Dose: 4 mg Documented by: Promethazine HCl (Phenergan) 12.5 mg IV Q6H PRN PRN PRN Reason: NAUSEA/VOMITING Last Admin: 07/31/19 10:35 Dose: 12.5 mg Documented by: Sodium Chloride () 10 - 40 ml IV UD PRN PRN Reason: SALINE FLUSH Last Admin: 08/03/19 06:51 Dose: 20 ml Documented by: Zolpidem Tartrate (Ambien (Generic)) 5 mg PO QHS PRN PRN PRN Reason: INSOMNIA Last Admin: 07/31/19 00:51 Dose: 5 mg Documented by: Medical Necessity - Tobacco Use Smoking Status: Never smoker Tobacco Use: Non-smoker Assessment/Plan All Active Problems (Last Updated 07/30/19 @ 15:[address] Magdy Conn MD) Acute on chronic pancreatitis (Acute) New onset A. fib with RVR (Acute) 23-year-old female with acute pancreatitis, history of pancreatitis 1. Discussed with patient ideally CorPak would be better than TPN as there is increased risk of infection/hyperglycemia with the TPN, patient not interested in a CorPak. As patient's creatinine has improved to almost normal at 1.1 we will start patient on sips of clears. No plans to advance until pain significantly improved 2. Creatinine down to 1.1 from 1.93 continue IV fluids at 200 3. Continue pain control Claire Moser M.D. Pager: [phone] [facility] [address] [place] [address], Outpatient [facility]ilion, [address] [place] [address] Office: [phone]
[2019-08-03] MEDS: Ensure Clear 120 ML Liquid PO ×2 (11:43→16:11)
[2019-08-03 11:51] LABS: Bedside Glucose 126 mg/dL (70-110)
--- NOTE | 2019-08-03 16:49 | NURSING ---
this RN taking over care at this time.
--- NOTE | 2019-08-03 16:51 | NURSING ---
Report given to Sandra Kahn RN
[2019-08-03 16:56] LABS: Bedside Glucose 75 mg/dL (70-110)
[2019-08-03 21:20] LABS: Bedside Glucose 112 mg/dL (70-110)
[2019-08-04] VITALS (14 sets, daily range): BP systolic 102–131; BP diastolic 52–75; PULSE 90–108; RESP 16–18; TEMP 36.9–39.4; O2SAT 92–95
[2019-08-04] MEDS: 0.9% Normal Saline 1,000 ML 200 ML IV ×5 (00:19→22:29)
[2019-08-04] MEDS: HYDROmorphone 1 MG/ML Syringe IV ×8 (01:55→22:54)
[2019-08-04] MEDS: 0.9% Saline Lock 10 ML Syringe IV ×8 (01:55→22:00)
[2019-08-04 04:58] LABS: Absolute Lymphocyte Count 1.23 X10^3/uL (0.83-4.51); Absolute Neutrophil Count 4.7 X10^3/uL (2.0-7.7); Basophil# 0.04 X10^3/uL; Basophil% 0.6 % (0-1); Eosinophil# 0.12 X10^3/uL; Eosinophils% 1.8 % (0-5); Hematocrit 30.7 % (37-47); Hemoglobin 9.4 g/dL (12.0-15.0); Lymphocyte # 1.23 X10^3/ul (4.0); Lymphocyte % 18.3 % (19-41); Mean Corp Hgb Conc 30.6 g/dL (32-36); Mean Corpuscular Hgb 26.6 pg (27.0-32.0); Mean Platelet Vol. 10.7 fl (6.2-12.0); Monocyte% 7.4 % (0-10); NRBC Flagged by Analyzer 0 % (0-5); Neutrophil # 4.72 X10^3/uL (2.7-7.7); Neutrophil % 70.1 % (47-70); Platelet Count 165 K/mm3 (150-450); RBC Distribution Width CV 16.2 % (11.6-14.6); RBC Distribution Width SD 51.6 fl (35.1-43.9); Red Blood Count 3.53 M/mm3 (4.2-5.4); White Blood Count 6.7 K/mm3 (4.4-11.0)
[2019-08-04 05:19] LABS: ALB/GLOB Ratio 0.5 RATIO (0.9-2.4); AST(SGOT) 60 U/L (15-37); Alanine Aminotransfer ALT/SGPT 32 U/L (13-56); Albumin, Serum 1.8 g/dL (3.2-5.0); Alkaline Phosphatase 69 U/L (45-117); Anion Gap 7 (5-15); BUN 10 mg/dL (7-18); BUN/Creat Ratio 11.5 RATIO (10-20); Calcium,Total 7.6 mg/dL (8.5-10.1); Chloride 109 mmol/L (98-107); Creatinine, Serum 0.87 mg/dL (0.55-1.02); EST Glomerular Filtration Rate 85 mL/min (>60); Est Glom Filt Rate - Afr Amer 103 mL/min (>60); Estimated Creatinine Clearance 83.19 ml/min; Globulin 3.9 g/dL (2.2-4.2); Glucose 115 mg/dL (74-106); Lipase 1305 U/L (73-393); Potassium 3.8 mmol/L (3.5-5.1); Protein, Total 5.7 g/dL (6.4-8.2); Sodium Level 137 mmol/L (136-145)
[2019-08-04 06:40] LABS: Bedside Glucose 133 mg/dL (70-110)
[2019-08-04] MEDS: Ensure Clear 120 ML Liquid PO ×3 (08:43→16:57)
[2019-08-04] MEDS: Acetaminophen 325 MG Tablet 650 MG PO ×3 (08:43→21:48)
[2019-08-04] MEDS: dilTIAZem CD 180 MG Capsule PO (09:38)
[2019-08-04] MEDS: Enoxaparin 40 MG/0.4 ML Syringe SC (09:38)
[2019-08-04 11:28] LABS: Bedside Glucose 137 mg/dL (70-110)
--- NOTE | 2019-08-04 12:31 | PCM.PN.SRG ---
Patient Problems: Active and Suspected Problems (Last Updated 07/30/19 @ 15:[address] Magdy Conn MD) New onset A. fib with RVR (Acute) Subjective: Patient states the pain is little bit better states it is a 6/10, denies any nausea vomiting is tolerating the sips of clears along with Ensure - Physical Exam Vitals/I&O's: Vital Signs Temp Pulse Resp BP Pulse Ox 98.8 F 93 16 102/58 L 93 08/04/19 10:35 08/04/19 10:35 08/04/19 10:35 08/04/19 10:35 08/04/19 10:35 Oxygen Flow Rate (L/min) 2 Oxygen Delivery Method Room Air Weight: 238 lb Body Mass Index (BMI) 42.1 Finger Stick Blood Glucose 105 Intake and Output for Last 24 Hours 08/02/19 08/03/19 08/04/19 23:59 23:59 23:59 Intake Total 4571.67 / 4571.67 5760.84 / 5760.84 2389.16 / 2389.16 Balance 4571.67 / 4571.67 5760.84 / 5760.84 2389.16 / 2389.16 General: Alert, Oriented x3, Cooperative, No apparent distress HEENT: Atraumatic Lungs: Normal air movement Cardiovascular: Regular rate Abdomen: Soft, Tender - Diffusely tender to palpation, mild rebound, no guarding Microbiology Past 72 Hours 08/01/19 13:20 Urine, Clean Catch Urine Culture - Final Mixed Gram Positive Organisms Laboratory Results 08/03/19 16:05: POC Glucose 75 08/03/19 21:14: POC Glucose 112 H 08/04/19 04:40: WBC 6.7, RBC 3.53 L, Hgb 9.4 L, Hct 30.7 L, MCV 87.0, MCH 26.6 L, MCHC 30.6 L, RDW Std Deviation 51.6 H, RDW Coeff of Varun 16.2 H, Plt Count 165, MPV 10.7, Immature Gran % (Auto) 1.800 H, Neut % (Auto) 70.1 H, Lymph % (Auto) 18.3 L, [place] % (Auto) 7.4, Eos % (Auto) 1.8, Baso % (Auto) 0.6, Absolute Neuts (auto) 4.7, Absolute Lymphs (auto) 1.23, Nucleated RBC % 0 08/04/19 04:40: Sodium 137, Potassium 3.8, Chloride 109 H, Carbon Dioxide 21.0, Anion Gap 7, BUN 10, Creatinine 0.87, Estim Creat Clear Calc 83.19, Est GFR (MDRD) Af Amer 103, Est GFR (MDRD) Non-Af 85, BUN/Creatinine Ratio 11.5, Glucose 115 H, Calcium 7.6 L, Total Bilirubin 0.80, AST 60 H, ALT 32, Alkaline Phosphatase 69, Total Protein 5.7 L, Albumin 1.8 L, Globulin 3.9, Albumin/Globulin Ratio 0.5 L, Lipase 1305 H 08/04/19 06:36: POC Glucose 133 H 08/04/19 10:49: POC Glucose 137 H Current Medications Acetaminophen (Tylenol) 650 mg PO Q6H PRN PRN PRN Reason: Pain Score 1-10/Temp > 100.7 F Last Admin: 08/04/19 08:43 Dose: 650 mg Documented by: Dextrose (D50w Syringe) 0 gm IV X1 PRN; Protocol PRN Reason: Hypoglycemia Diltiazem HCl (Cardizem Cd) 180 mg PO DAILY REPLACED BY [facility] Last Admin: 08/04/19 09:38 Dose: 180 mg Documented by: Enoxaparin Sodium (Lovenox) 40 mg SC DAILY REPLACED BY [facility] Last Admin: 08/04/19 09:38 Dose: 40 mg Documented by: Glucagon () 1 mg IM .X1 PRN PRN Reason: Hypoglycemia Hydromorphone HCl (Dilaudid Inj) 1 mg IV Q2H PRN PRN PRN Reason: Pain Score 6-10/10 Last Admin: 08/04/19 10:37 Dose: 1 mg Documented by: Sodium Chloride () 250 mls @ 15 mls/hr IV .[id number] PRN PRN Reason: Saline Flush Sodium Chloride () 250 mls @ 15 mls/hr IV .[id number] PRN PRN Reason: Additional IVPB Infusion Sodium Chloride () 1,000 mls @ 200 mls/hr IV .Q5H REPLACED BY [facility] Last Admin: 08/04/19 11:42 Dose: 200 mls/hr Documented by: Pantoprazole Sodium 40 mg/ (Sodium Chloride) 110 mls @ 330 mls/hr IV Q12 REPLACED BY [facility] Last Infusion: 08/04/19 11:04 Dose: Infused Documented by: Piperacillin Sod/Tazobactam (Sod 3.375 gm/ Sodium Chloride) 50 mls @ 12.5 mls/hr IV Q8 REPLACED BY [facility] Last Infusion: 08/04/19 10:45 Dose: Infused Documented by: Insulin Human Lispro (Humalog Kwikpen (Bkc)) 0 unit SC ACHS REPLACED BY [facility]; Protocol Last Admin: 08/04/19 11:11 Dose: Not Given Documented by: Metoprolol Tartrate (Lopressor (Beta Jaja)) 5 mg IV Q6 PRN PRN Reason: HR >110 Last Admin: 07/31/19 16:06 Dose: 5 mg Documented by: Nutritional Formula (Lactose Free) (Ensure Clear) 120 ml PO TIDCM REPLACED BY [facility] Last Admin: 08/04/19 08:43 Dose: 120 ml Documented by: Ondansetron HCl (Zofran) 4 mg IV Q8H PRN PRN PRN Reason: NAUSEA/VOMITING Last Admin: 08/02/19 08:06 Dose: 4 mg Documented by: Promethazine HCl (Phenergan) 12.5 mg IV Q6H PRN PRN PRN Reason: NAUSEA/VOMITING Last Admin: 07/31/19 10:35 Dose: 12.5 mg Documented by: Sodium Chloride () 10 - 40 ml IV UD PRN PRN Reason: SALINE FLUSH Last Admin: 08/04/19 10:37 Dose: 10 ml Documented by: Zolpidem Tartrate (Ambien (Generic)) 5 mg PO QHS PRN PRN PRN Reason: INSOMNIA Last Admin: 07/31/19 00:51 Dose: 5 mg Documented by: Medical Necessity - Tobacco Use Smoking Status: Never smoker Tobacco Use: Non-smoker Assessment/Plan All Active Problems (Last Updated 07/30/19 @ 15:[address] Magdy Conn MD) Acute on chronic pancreatitis (Acute) New onset A. fib with RVR (Acute) 23-year-old female with acute pancreatitis, history of pancreatitis 1. continue sips of clears with Ensure clear until pain is significantly improved. 2. Creatinine within normal limits 3. Continue pain control will change to 0.5-1 of Dilaudid every 2h. Claire Moser M.D. Pager: [phone] [facility] [address] [place] [address], [facility], [address] [place] [address] Office: [phone]
--- NOTE | 2019-08-04 12:43 | PN_ITS ---
Patient Problems: Active and Suspected Problems (Last Updated 07/30/19 @ 15:[address] Magdy Conn MD) New onset A. fib with RVR (Acute) Subjective: Patient seen and examined. She was in significant pain this morning and was crying because of abdominal pain from the pancreatitis. She denied any fever, any chills or nausea vomiting or diarrhea. Review of symptoms otherwise negative. Pain improved significantly when she was given her IV pain meds. She has remained hemodynamically stable. Vitals/I&O's: Vital Signs Temp Pulse Resp BP Pulse Ox 98.8 F 93 16 102/58 L 93 08/04/19 10:35 08/04/19 10:35 08/04/19 10:35 08/04/19 10:35 08/04/19 10:35 Oxygen Flow Rate (L/min) 2 Oxygen Delivery Method Room Air Weight: 237 lb 14.06 oz Body Mass Index (BMI) 42.1 Finger Stick Blood Glucose 105 Intake and Output for Last 24 Hours 08/02/19 08/03/19 08/04/19 23:59 23:59 23:59 Intake Total 4571.67 / 4571.67 5760.84 / 5760.84 2389.16 / 2389.16 Balance 4571.67 / 4571.67 5760.84 / 5760.84 2389.16 / 2389.16 General: Alert, Oriented x3, Cooperative, - - in moderate distress due to pain HEENT: Atraumatic, PERRLA, EOMI, Normocephalic Oral: Moist Mucosa Neck: Supple, No JVD, Negative Carotid Bruits Lungs: Clear to auscultation, Normal air movement, No rhonchi, No wheeze, No rales Cardiovascular: Regular rate, Regular Rhythm, Normal S1, Normal S2, No murmurs Abdomen: Bowel Sounds Present, Soft, - - moderate generalised tenderness,no g uarding or rebound tenderness. Extremities: No clubbing, No cyanosis, No edema, Capillary Refill Less than 3 Seconds Skin: No rashes, No breakdown Musculoskeletal: No Tenderness to Palpation of Joints or Extremities Lymphatic: No Cervical, Supraclavicular, or Inguinal Adenopathy Neurological: Cranial nerves II-XII grossly intact, Neuro grossly intact, Motor Exam 5/5 strength throughout Psych/Mental Status: - - distressed due to pain, Alert and oriented to time, place, person, mood and affect Microbiology Past 72 Hours 08/01/19 13:20 Urine, Clean Catch Urine Culture - Final Mixed Gram Positive Organisms Laboratory Results 08/03/19 16:05: POC Glucose 75 08/03/19 21:14: POC Glucose 112 H 08/04/19 04:40: WBC 6.7, RBC 3.53 L, Hgb 9.4 L, Hct 30.7 L, MCV 87.0, MCH 26.6 L , MCHC 30.6 L, RDW Std Deviation 51.6 H, RDW Coeff of Varun 16.2 H, Plt Count 165, MPV 10.7, Immature Gran % (Auto) 1.800 H, Neut % (Auto) 70.1 H, Lymph % (Auto) 18.3 L, [place] % (Auto) 7.4, Eos % (Auto) 1.8, Baso % (Auto) 0.6, Absolute Neuts (auto) 4.7, Absolute Lymphs (auto) 1.23, Nucleated RBC % 0 08/04/19 04:40: Sodium 137, Potassium 3.8, Chloride 109 H, Carbon Dioxide 21.0, Anion Gap 7, BUN 10, Creatinine 0.87, Estim Creat Clear Calc 83.19, Est GFR (MDRD) Af Amer 103, Est GFR (MDRD) Non-Af 85, BUN/Creatinine Ratio 11.5, Glucose 115 H, Calcium 7.6 L, Total Bilirubin 0.80, AST 60 H, ALT 32, Alkaline Phosphatase 69, Total Protein 5.7 L, Albumin 1.8 L, Globulin 3.9, Albumin/Globulin Ratio 0.5 L, Lipase 1305 H 08/04/19 06:36: POC Glucose 133 H 08/04/19 10:49: POC Glucose 137 H Diagnostic Data Lung Scan-VQ NM 07/30/19 19:39 IMPRESSION: 1. NORMAL 99m Tc MAA pulmonary perfusion imaging examination, according to PIOPED II interpretive criteria. (Sotsman et al, Radiology 246: 941, 2008 Sopablo et al, J Nucl Med 49: 1741, 2008). 2. Central clumping of the aerosol may be secondary to obstructive airway mechanics and or clinical tachypnea. Electronically Signed: Dequan Pérez, DO at 14:27 EDT Tel , Service support , Abdomen/Pelvis CT 08/01/19 10:15 IMPRESSION: Hepatomegaly with diffuse fatty infiltration. Diffuse enlargement of the pancreas with findings in keeping with acute pancreatitis with infiltration of the fat in the omentum as described. Ascites. Bibasilar infiltrates more prominent on the left side with the small left pleural effusion. Electronically Signed: Popeye Nichols, at 11:12 EDT , Service support , Renal Ultrasound 08/01/19 10:46 IMPRESSION: Normal ultrasound of the kidneys. Bladder wall thickening. Splenomegaly. Electronically Signed: Popeye Nichols, at 12:30 EDT , Service support , Chest X-Ray 08/03/19 08:46 IMPRESSION: Bilateral basilar infiltrate/atelectasis. Electronically Signed: Bulmaro Dumas, DO at 17:38 EDT Tel [phone], Service support , Current Medications Acetaminophen (Tylenol) 650 mg PO Q6H PRN PRN PRN Reason: Pain Score 1-10/Temp > 100.7 F Last Admin: 08/04/19 08:43 Dose: 650 mg Documented by: Dextrose (D50w Syringe) 0 gm IV X1 PRN; Protocol PRN Reason: Hypoglycemia Diltiazem HCl (Cardizem Cd) 180 mg PO DAILY [facility] Last Admin: 08/04/19 09:38 Dose: 180 mg Documented by: Enoxaparin Sodium (Lovenox) 40 mg SC DAILY [facility] Last Admin: 08/04/19 09:38 Dose: 40 mg Documented by: Glucagon () 1 mg IM .X1 PRN PRN Reason: Hypoglycemia Hydromorphone HCl (Dilaudid Inj) 1 mg IV Q2H PRN PRN PRN Reason: Pain Score 6-10/10 Last Admin: 08/04/19 10:37 Dose: 1 mg Documented by: Sodium Chloride () 250 mls @ 15 mls/hr IV .[id number] PRN PRN Reason: Saline Flush Sodium Chloride () 250 mls @ 15 mls/hr IV .[id number] PRN PRN Reason: Additional IVPB Infusion Sodium Chloride () 1,000 mls @ 200 mls/hr IV .Q5H [facility] Last Admin: 08/04/19 11:42 Dose: 200 mls/hr Documented by: Pantoprazole Sodium 40 mg/ (Sodium Chloride) 110 mls @ 330 mls/hr IV Q12 [facility] Last Infusion: 08/04/19 11:04 Dose: Infused Documented by: Piperacillin Sod/Tazobactam (Sod 3.375 gm/ Sodium Chloride) 50 mls @ 12.5 mls/hr IV Q8 [facility] Last Infusion: 08/04/19 10:45 Dose: Infused Documented by: Insulin Human Lispro (Humalog Kwikpen (Bkc)) 0 unit SC [facility]; Protocol Last Admin: 08/04/19 11:11 Dose: Not Given Documented by: Metoprolol Tartrate (Lopressor (Beta Jaja)) 5 mg IV Q6 PRN PRN Reason: HR >110 Last Admin: 07/31/19 16:06 Dose: 5 mg Documented by: Nutritional Formula (Lactose Free) (Ensure Clear) 120 ml PO TIDCM [facility] Last Admin: 08/04/19 08:43 Dose: 120 ml Documented by: Ondansetron HCl (Zofran) 4 mg IV Q8H PRN PRN PRN Reason: NAUSEA/VOMITING Last Admin: 08/02/19 08:06 Dose: 4 mg Documented by: Promethazine HCl (Phenergan) 12.5 mg IV Q6H PRN PRN PRN Reason: NAUSEA/VOMITING Last Admin: 07/31/19 10:35 Dose: 12.5 mg Documented by: Sodium Chloride () 10 - 40 ml IV UD PRN PRN Reason: SALINE FLUSH Last Admin: 08/04/19 10:37 Dose: 10 ml Documented by: Zolpidem Tartrate (Ambien (Generic)) 5 mg PO QHS PRN PRN PRN Reason: INSOMNIA Last Admin: 07/31/19 00:51 Dose: 5 mg Documented by: STROKE Vital Signs/Narrative: Vital Signs Temp Pulse Resp BP Pulse Ox 08/04/19 10:35 98.8 F 93 16 102/58 L 93 Medical Necessity - Tobacco Use Smoking Status: Never smoker Tobacco Use: Non-smoker Assessment/Plan All Active Problems (Last Updated 07/30/19 @ 15:[address] Magdy Conn MD) Acute on chronic pancreatitis (Acute) New onset A. fib with RVR (Acute) 1. Acute on chronic pancreatitis * patient complaining of abdominal pain today. * currently on clear liquids * I suspect cause of pancreatitis is her elevated triglycerides; She says her pancreatitis flares up a few weeks after she has a baby. * Triglyceride level on admission was 1577. Patient's triglyceride levels have been gradually trending upwards. * General surgery on board: CT abdomen and pelvis showed hepatomegaly with diffuse enlargement of the pancreas with infiltration of the omental fat and ascites as well as small left pleural effusion and bibasilar atelectasis. * Continue hydration with IV fluids. IV morphine as needed for pain. * I do think patient needs to be treated aggressively for her triglyceridemia. She is currently on fenofibrates and niacin but triglyceride levels are trending upwards. * once pancreatitis resolves, she will need a repeat check of her triglyceride levels; to follow up with her mud logger for more aggressive management of her diabetes. 2. Severe hypertriglyceridemia * Triglyceride level is 1577. * she says she notes that she gets pancreatitis a few weeks after delivery. Since is also known because of hypertriglyceridemia, could be that her pregnancies induced hypertriglyceridemia and cause pancreatitis after delivery. * She also notes that there is a history of hypertriglyceridemia in her father though she does not know how young he was when he got it. There may therefore be an element of familial hypertriglyceridemia. Patient also has diabetes mellitus, so metabolic syndrome may also be contributing * continue low fat diet, and use of omega 3 fatty acids and niacin as well as fibrates. * * 3. Afib with RVR * this is of new onset. * cardiology on board; on PO cardizem and IV metoprolol prn * 2D echo showed EF of 65%, with no other significant findings. * 4. KIM: resolved. Cr is 0.87 5. Type 2 diabetes mellitus: * A1C is 7/ Currently on clear liquid diet o/a of acute pancreatitis * ISS. Accuchecks ACHS * 6.Hypertension: on cardizem 7.Depression: on sertraline. DVT prophylaxis: lovenox Inpatient E&M: 58286 Subs Hosp L3
[2019-08-04 17:11] LABS: Bedside Glucose 158 mg/dL (70-110)
[2019-08-04 23:45] LABS: Bedside Glucose 92 mg/dL (70-110)
[2019-08-05] VITALS (12 sets, daily range): BP systolic 105–127; BP diastolic 54–72; PULSE 87–119; RESP 16–18; TEMP 36.2–38.5; O2SAT 94–98
[2019-08-05] MEDS: Ondansetron 4 MG/2 ML Vial IV (01:17)
[2019-08-05] MEDS: HYDROmorphone 1 MG/ML Syringe IV ×9 (01:17→21:58)
[2019-08-05] MEDS: 0.9% Normal Saline 1,000 ML 200 ML IV (03:48)
[2019-08-05] MEDS: Acetaminophen 325 MG Tablet 650 MG PO ×3 (03:53→19:54)
[2019-08-05 04:21] LABS: Hematocrit 26.4 % (37-47); Hemoglobin 8.3 g/dL (12.0-15.0); Mean Corp Hgb Conc 31.4 g/dL (32-36); Mean Platelet Vol. 10.6 fl (6.2-12.0); POSITIVE COUNT YES; POSITIVE MORPHOLOGY YES; Platelet Count 143 K/mm3 (150-450); RBC Distribution Width CV 15.9 % (11.6-14.6); RBC Distribution Width SD 50.1 fl (35.1-43.9); Red Blood Count 3.07 M/mm3 (4.2-5.4); White Blood Count 5.2 K/mm3 (4.4-11.0)
[2019-08-05 04:23] LABS: Differential Indicated MANUAL DIFF
[2019-08-05 04:38] LABS: ALB/GLOB Ratio 0.5 RATIO (0.9-2.4); AST(SGOT) 56 U/L (15-37); Alanine Aminotransfer ALT/SGPT 31 U/L (13-56); Albumin, Serum 1.7 g/dL (3.2-5.0); Alkaline Phosphatase 57 U/L (45-117); Anion Gap 8 (5-15); BUN 6 mg/dL (7-18); BUN/Creat Ratio 8.6 RATIO (10-20); Calcium,Total 7.5 mg/dL (8.5-10.1); Chloride 111 mmol/L (98-107); EST Glomerular Filtration Rate 110 mL/min (>60); Est Glom Filt Rate - Afr Amer 133 mL/min (>60); Globulin 3.6 g/dL (2.2-4.2); Glucose 127 mg/dL (74-106); Lipase 980 U/L (73-393); Potassium 3.2 mmol/L (3.5-5.1); Protein, Total 5.3 g/dL (6.4-8.2); Sodium Level 140 mmol/L (136-145)
[2019-08-05 04:50] LABS: Lymphocyte 13 % (19-41); Metamyelocyte 4 % (0-1); Monocyte 6 % (0-10); Neutrophil-Band 24 % (0-5); Neutrophil-Segmented 53 % (47-70); Total Cells Counted 100 (MANUAL DIFF)
[2019-08-05 04:53] LABS: Absolute Lymphocyte Count 0.68 X10^3/uL (0.83-4.51); Hypochromasia 1+; Lymphocyte # 0.68 X10^3/ul (4.0); Platelet Estimate SLT DEC (ADEQ); Polychromasia RARE
[2019-08-05 04:54] LABS: Dohle Bodies RARE; Toxic Granulation RARE
[2019-08-05 06:41] LABS: Bedside Glucose 131 mg/dL (70-110)
[2019-08-05] MEDS: Ensure Clear 120 ML Liquid PO ×2 (08:31→17:47)
[2019-08-05] MEDS: 0.9% Saline Lock 10 ML Syringe IV ×3 (08:32→17:51)
[2019-08-05] MEDS: Potassium Chloride 10mEq/100mL 10 MEQ/100 ML IV.SOLN. 100 MEQ IV BOLUS ×4 (08:52→11:52)
--- NOTE | 2019-08-05 09:04 | NURSING ---
updated marizol on pt's labs with pt's premission
[2019-08-05] MEDS: dilTIAZem CD 180 MG Capsule PO (09:58)
[2019-08-05] MEDS: Enoxaparin 40 MG/0.4 ML Syringe SC (09:58)
[2019-08-05 11:50] LABS: Bedside Glucose 169 mg/dL (70-110)
--- NOTE | 2019-08-05 12:17 | PCM.PN.SRG ---
Patient Problems: Active and Suspected Problems (Last Updated 07/30/19 @ 15:[address] Magdy Conn MD) New onset A. fib with RVR (Acute) Subjective: Patient states she has been unable to urinate, bladder scan for 700 currently trying - Physical Exam Vitals/I&O's: Vital Signs Temp Pulse Resp BP Pulse Ox 98.7 F 94 18 124/58 H 95 08/05/19 08:23 08/05/19 08:23 08/05/19 08:23 08/05/19 08:23 08/05/19 08:58 Oxygen Flow Rate (L/min) 2 Oxygen Delivery Method Room Air Weight: 282 lb 13.649 oz Body Mass Index (BMI) 42.1 Finger Stick Blood Glucose 105 Intake and Output for Last 24 Hours 08/03/19 08/04/19 08/05/19 23:59 23:59 23:59 Intake Total 5760.84 / 5760.84 5574.16 / 5574.16 2453.33 / 2453.33 Balance 5760.84 / 5760.84 5574.16 / 5574.16 2453.33 / 2453.33 General: Alert, Oriented x3, Cooperative, No apparent distress Abdomen: Soft, Tender - Diffusely tender, no guarding Extremities: Edema Microbiology Past 72 Hours 08/04/19 22:55 Mucosa - Nasopharyngeal Coronavirus COVID-19 PCR - Final 08/01/19 13:20 Urine, Clean Catch Urine Culture - Final Mixed Gram Positive Organisms Laboratory Results 08/04/19 16:54: POC Glucose 158 H 08/04/19 21:51: POC Glucose 92 08/05/19 04:10: WBC 5.2, RBC 3.07 L, Hgb 8.3 L, Hct 26.4 L, MCV 86.0, MCH 27.0, MCHC 31.4 L, RDW Std Deviation 50.1 H, RDW Coeff of Varun 15.9 H, Plt Count 143 L, MPV 10.6, Neut % (Auto) Not Reportable, Absolute Neuts (auto) 4.0, Absolute Lymphs (auto) 0.68 L, Total Counted 100, Neutrophils % (Manual) 53, Band Neutrophils % 24 H, Lymphocytes % (Manual) 13 L, Monocytes % (Manual) 6, Metamyelocytes % 4 H, Diff Path Review Reviewed, Toxic Granulation RARE, Dohle Bodies RARE, Platelet Estimate SLT DEC, Polychromasia RARE, Hypochromasia 1+ 08/05/19 04:10: Sodium 140, Potassium 3.2 L, Chloride 111 H, Carbon Dioxide 21.0, Anion Gap 8, BUN 6 L, Creatinine 0.70, Estim Creat Clear Calc 103.40, Est GFR (MDRD) Af Amer 133, Est GFR (MDRD) Non-Af 110, BUN/Creatinine Ratio 8.6 L, Glucose 127 H, Calcium 7.5 L, Total Bilirubin 0.70, AST 56 H, ALT 31, Alkaline Phosphatase 57, Total Protein 5.3 L, Albumin 1.7 L, Globulin 3.6, Albumin/Globulin Ratio 0.5 L, Lipase 980 H 08/05/19 06:35: POC Glucose 131 H 08/05/19 11:44: POC Glucose 169 H Current Medications Acetaminophen (Tylenol) 650 mg PO Q6H PRN PRN PRN Reason: Pain Score 1-10/Temp > 100.7 F Last Admin: 08/05/19 10:02 Dose: 650 mg Documented by: Dextrose (D50w Syringe) 0 gm IV X1 PRN; Protocol PRN Reason: Hypoglycemia Diltiazem HCl (Cardizem Cd) 180 mg PO DAILY [facility] Last Admin: 08/05/19 09:58 Dose: 180 mg Documented by: Enoxaparin Sodium (Lovenox) 40 mg SC DAILY [facility] Last Admin: 08/05/19 09:58 Dose: 40 mg Documented by: Glucagon () 1 mg IM .X1 PRN PRN Reason: Hypoglycemia Hydromorphone HCl (Dilaudid Inj) 1 mg IV Q2H PRN PRN PRN Reason: Pain Score 6-10/10 Last Admin: 08/05/19 11:00 Dose: 1 mg Documented by: Sodium Chloride () 250 mls @ 15 mls/hr IV .[id number] PRN PRN Reason: Saline Flush Sodium Chloride () 250 mls @ 15 mls/hr IV .[id number] PRN PRN Reason: Additional IVPB Infusion Pantoprazole Sodium 40 mg/ (Sodium Chloride) 110 mls @ 330 mls/hr IV Q12 [facility] Last Infusion: 08/05/19 09:09 Dose: Infused Documented by: Piperacillin Sod/Tazobactam (Sod 3.375 gm/ Sodium Chloride) 50 mls @ 12.5 mls/hr IV Q8 [facility] Last Infusion: 08/05/19 09:15 Dose: Infused Documented by: Insulin Human Lispro (Humalog Kwikpen (Bkc)) 0 unit SC ACHS [facility]; Protocol Last Admin: 08/05/19 11:51 Dose: Not Given Documented by: Metoprolol Tartrate (Lopressor (Beta Jaja)) 5 mg IV Q6 PRN PRN Reason: HR >110 Last Admin: 07/31/19 16:06 Dose: 5 mg Documented by: Nutritional Formula (Lactose Free) (Ensure Clear) 120 ml PO TIDCM [facility] Last Admin: 08/05/19 11:53 Dose: Not Given Documented by: Ondansetron HCl (Zofran) 4 mg IV Q8H PRN PRN PRN Reason: NAUSEA/VOMITING Last Admin: 08/05/19 01:17 Dose: 4 mg Documented by: Promethazine HCl (Phenergan) 12.5 mg IV Q6H PRN PRN PRN Reason: NAUSEA/VOMITING Last Admin: 07/31/19 10:35 Dose: 12.5 mg Documented by: Sodium Chloride () 10 - 40 ml IV UD PRN PRN Reason: SALINE FLUSH Last Admin: 08/05/19 08:32 Dose: 20 ml Documented by: Zolpidem Tartrate (Ambien (Generic)) 5 mg PO QHS PRN PRN PRN Reason: INSOMNIA Last Admin: 07/31/19 00:51 Dose: 5 mg Documented by: Medical Necessity - Tobacco Use Smoking Status: Never smoker Tobacco Use: Non-smoker Assessment/Plan All Active Problems (Last Updated 07/30/19 @ 15:[address] Magdy Conn MD) Acute on chronic pancreatitis (Acute) New onset A. fib with RVR (Acute) 23-year-old female with acute pancreatitis, history of pancreatitis 1. continue sips of clears with Ensure clear until pain is significantly improved, patient still states that she has no increased pain with the clears 2. Creatinine within normal limits, IV fluids have been discontinued patient does have edema increased weight from admission will need for to hospitalist for possible Lasix/Infante. 3. Continue pain control will change to 0.5-1 of Dilaudid every 2h. Claire Moser M.D. Pager: [phone] [facility] [address] [place] [address], [address] [place] [id number] Office: [phone]
--- NOTE | 2019-08-05 12:28 | PCM.PN.HOSP ---
Patient Problems: Active and Suspected Problems (Last Updated 07/30/19 @ 15:[address] Magdy Conn MD) New onset A. fib with RVR (Acute) Subjective: Patient seen and examined. She still does complain of pain but states abdominal pain is getting better. She denies any nausea or vomiting or diarrhea. Patient noted to have gained about 44 pounds since admission and patient does complain that she feels very puffy. Intake and output chart is not very accurate as patient's urine has not been measured. Patient is agreeable to having a catheter inserted. Vitals/I&O's: Vital Signs Temp Pulse Resp BP Pulse Ox 98.7 F 94 18 124/58 H 95 08/05/19 08:23 08/05/19 08:23 08/05/19 08:23 08/05/19 08:23 08/05/19 08:58 Oxygen Flow Rate (L/min) 2 Oxygen Delivery Method Room Air Weight: 282 lb 13.649 oz Body Mass Index (BMI) 42.1 Finger Stick Blood Glucose 105 Intake and Output for Last 24 Hours 08/03/19 08/04/19 08/05/19 23:59 23:59 23:59 Intake Total 5760.84 / 5760.84 5574.16 / 5574.16 2453.33 / 2453.33 Balance 5760.84 / 5760.84 5574.16 / 5574.16 2453.33 / 2453.33 General: Alert, Oriented x3, Cooperative, HEENT: Atraumatic, PERRLA, EOMI, Normocephalic Oral: Moist Mucosa Neck: Supple, No JVD, Negative Carotid Bruits Lungs: Clear to auscultation, Normal air movement, No rhonchi, No wheeze, No rales Cardiovascular: Regular rate, Regular Rhythm, Normal S1, Normal S2, No murmurs Abdomen: Bowel Sounds Present, Soft, - - mild generalised tenderness,no guarding or rebound tenderness. Extremities: No clubbing, No cyanosis, No edema, Capillary Refill Less than 3 Seconds Skin: No rashes, No breakdown, looks edematous Musculoskeletal: No Tenderness to Palpation of Joints or Extremities Lymphatic: No Cervical, Supraclavicular, or Inguinal Adenopathy Neurological: Cranial nerves II-XII grossly intact, Neuro grossly intact, Motor Exam 5/5 strength throughout Psych/Mental Status: - - distressed due to pain, Alert and oriented to time, place, person, mood and affect Microbiology Past 72 Hours 08/04/19 22:55 Mucosa - Nasopharyngeal Coronavirus COVID-19 PCR - Final 08/01/19 13:20 Urine, Clean Catch Urine Culture - Final Mixed Gram Positive Organisms Laboratory Results 08/04/19 16:54: POC Glucose 158 H 08/04/19 21:51: POC Glucose 92 08/05/19 04:10: WBC 5.2, RBC 3.07 L, Hgb 8.3 L, Hct 26.4 L, MCV 86.0, MCH 27.0, MCHC 31.4 L, RDW Std Deviation 50.1 H, RDW Coeff of Varun 15.9 H, Plt Count 143 L, MPV 10.6, Neut % (Auto) Not Reportable, Absolute Neuts (auto) 4.0, Absolute Lymphs (auto) 0.68 L, Total Counted 100, Neutrophils % (Manual) 53, Band Neutrophils % 24 H, Lymphocytes % (Manual) 13 L, Monocytes % (Manual) 6, Metamyelocytes % 4 H, Diff Path Review Reviewed, Toxic Granulation RARE, Dohle Bodies RARE, Platelet Estimate SLT DEC, Polychromasia RARE, Hypochromasia 1+ 08/05/19 04:10: Sodium 140, Potassium 3.2 L, Chloride 111 H, Carbon Dioxide 21.0, Anion Gap 8, BUN 6 L, Creatinine 0.70, Estim Creat Clear Calc 103.40, Est GFR (MDRD) Af Amer 133, Est GFR (MDRD) Non-Af 110, BUN/Creatinine Ratio 8.6 L, Glucose 127 H, Calcium 7.5 L, Total Bilirubin 0.70, AST 56 H, ALT 31, Alkaline Phosphatase 57, Total Protein 5.3 L, Albumin 1.7 L, Globulin 3.6, Albumin/Globulin Ratio 0.5 L, Lipase 980 H 08/05/19 06:35: POC Glucose 131 H 08/05/19 11:44: POC Glucose 169 H Diagnostic Data Lung Scan-VQ NM 07/30/19 19:39 IMPRESSION: 1. NORMAL 99m Tc MAA pulmonary perfusion imaging examination, according to PIOPED II interpretive criteria. (Sotsman et al, Radiology 246: 941, 2008 Buddy jones al, J Nucl Med 49: 1741, 2008). 2. Central clumping of the aerosol may be secondary to obstructive airway mechanics and or clinical tachypnea. Electronically Signed: Dequan Pérez, DO at 14:27 EDT Tel , Service support , Abdomen/Pelvis CT 08/01/19 10:15 IMPRESSION: Hepatomegaly with diffuse fatty infiltration. Diffuse enlargement of the pancreas with findings in keeping with acute pancreatitis with infiltration of the fat in the omentum as described. Ascites. Bibasilar infiltrates more prominent on the left side with the small left pleural effusion. Electronically Signed: Popeye Nichols, at 11:12 EDT , Service support , Renal Ultrasound 08/01/19 10:46 IMPRESSION: Normal ultrasound of the kidneys. Bladder wall thickening. Splenomegaly. Electronically Signed: Popeye Nichols, at 12:30 EDT , Service support , Chest X-Ray 08/03/19 08:46 IMPRESSION: Bilateral basilar infiltrate/atelectasis. Electronically Signed: Bulmaro Dumas, DO at 17:38 EDT Tel [phone], Service support , Current Medications Acetaminophen (Tylenol) 650 mg PO Q6H PRN PRN PRN Reason: Pain Score 1-10/Temp > 100.7 F Last Admin: 08/05/19 10:02 Dose: 650 mg Documented by: Dextrose (D50w Syringe) 0 gm IV X1 PRN; Protocol PRN Reason: Hypoglycemia Diltiazem HCl (Cardizem Cd) 180 mg PO DAILY [facility] Last Admin: 08/05/19 09:58 Dose: 180 mg Documented by: Enoxaparin Sodium (Lovenox) 40 mg SC DAILY [facility] Last Admin: 08/05/19 09:58 Dose: 40 mg Documented by: Furosemide (Lasix) 40 mg IV BID@1000,1800 [facility] Glucagon () 1 mg IM .X1 PRN PRN Reason: Hypoglycemia Hydromorphone HCl (Dilaudid Inj) 0.5 - 1 mg IV Q2H PRN PRN PRN Reason: Pain Score 6-10/10 Sodium Chloride () 250 mls @ 15 mls/hr IV .[id number] PRN PRN Reason: Saline Flush Sodium Chloride () 250 mls @ 15 mls/hr IV .[id number] PRN PRN Reason: Additional IVPB Infusion Pantoprazole Sodium 40 mg/ (Sodium Chloride) 110 mls @ 330 mls/hr IV Q12 [facility] Last Infusion: 08/05/19 09:09 Dose: Infused Documented by: Piperacillin Sod/Tazobactam (Sod 3.375 gm/ Sodium Chloride) 50 mls @ 12.5 mls/hr IV Q8 [facility] Last Infusion: 08/05/19 09:15 Dose: Infused Documented by: Insulin Human Lispro (Humalog Kwikpen (Bkc)) 0 unit SC [facility]; Protocol Last Admin: 08/05/19 11:51 Dose: Not Given Documented by: Metoprolol Tartrate (Lopressor (Beta Jaja)) 5 mg IV Q6 PRN PRN Reason: HR >110 Last Admin: 07/31/19 16:06 Dose: 5 mg Documented by: Nutritional Formula (Lactose Free) (Ensure Clear) 120 ml PO TIDCM [facility] Last Admin: 08/05/19 11:53 Dose: Not Given Documented by: Ondansetron HCl (Zofran) 4 mg IV Q8H PRN PRN PRN Reason: NAUSEA/VOMITING Last Admin: 08/05/19 01:17 Dose: 4 mg Documented by: Promethazine HCl (Phenergan) 12.5 mg IV Q6H PRN PRN PRN Reason: NAUSEA/VOMITING Last Admin: 07/31/19 10:35 Dose: 12.5 mg Documented by: Sodium Chloride () 10 - 40 ml IV UD PRN PRN Reason: SALINE FLUSH Last Admin: 08/05/19 08:32 Dose: 20 ml Documented by: Zolpidem Tartrate (Ambien (Generic)) 5 mg PO QHS PRN PRN PRN Reason: INSOMNIA Last Admin: 07/31/19 00:51 Dose: 5 mg Documented by: STROKE Vital Signs/Narrative: Vital Signs Pulse Ox 08/05/19 08:58 95 Medical Necessity - Tobacco Use Smoking Status: Never smoker Tobacco Use: Non-smoker Assessment/Plan All Active Problems (Last Updated 07/30/19 @ 15:[address] Magdy Conn MD) Acute on chronic pancreatitis (Acute) New onset A. fib with RVR (Acute) 1. Acute on chronic pancreatitis pain is much better today. On clear liquids continue IV fluid hydration and IV pain meds likely to triglyceridemia, and she will need close followu p with her PCP and cognos consultant for better control of her triglycerides. on IV zosyn 2. Severe hypertriglyceridemia Triglyceride level is 1577. on fenofibrates and niacine will need follow up with PCP and cognos consultant for more intensive treatment 3. Generalised edema Due to fluid overload. Recorded weight, patient seems up again about 44 pounds since admission. Will start on IV Lasix 40 mg twice daily. Insert catheter to monitor urine output and also intake. 4. Afib with RVR this is of new onset. cardiology on board; on PO cardizem and IV metoprolol prn 2D echo showed EF of 65%, with no other significant findings. 5. Hypokalemia: Potassium is 3.2 today. Will replace and monitor. 6. KIM: resolved. 7. Anemia: Hemoglobin is 8.3 today. Was 11.2 on admission had dropped to 9.4. No clear evidence of bleeding. Will monitor closely. 8. Type 2 diabetes mellitus: A1C is 7/ Currently on clear liquid diet o/a of acute pancreatitis ISS. Accuchecks ACHS 9.Hypertension: on cardizem 10.Depression: on sertraline. DVT prophylaxis: lovenox Inpatient E&M: 13563 [facility] Hosp L3
[2019-08-05] MEDS: Furosemide 40 MG/4 ML Vial IV ×2 (13:20→17:48)
[2019-08-05 18:10] LABS: Bedside Glucose 129 mg/dL (70-110)
--- NOTE | 2019-08-05 20:35 | NURSING ---
called and update given.
[2019-08-05 22:01] LABS: Bedside Glucose 102 mg/dL (70-110)
[2019-08-06] VITALS (15 sets, daily range): BP systolic 106–140; BP diastolic 54–76; PULSE 88–102; RESP 18; TEMP 36.8–38.6; O2SAT 92–96; BMI 47.5
[2019-08-06] MEDS: HYDROmorphone 1 MG/ML Syringe IV ×8 (02:57→23:59)
[2019-08-06 04:46] LABS: Differential Indicated MANUAL DIFF; Hematocrit 25.5 % (37-47); Hemoglobin 8.1 g/dL (12.0-15.0); Mean Corp Hgb Conc 31.8 g/dL (32-36); Mean Corpuscular Hgb 27.2 pg (27.0-32.0); Mean Corpuscular Volume 85.6 fL (81-99); Mean Platelet Vol. 11.2 fl (6.2-12.0); POSITIVE COUNT YES; POSITIVE MORPHOLOGY YES; Platelet Count 175 K/mm3 (150-450); RBC Distribution Width CV 15.8 % (11.6-14.6); RBC Distribution Width SD 49.3 fl (35.1-43.9); Red Blood Count 2.98 M/mm3 (4.2-5.4); White Blood Count 6.6 K/mm3 (4.4-11.0)
[2019-08-06 05:00] LABS: ALB/GLOB Ratio 0.5 RATIO (0.9-2.4); AST(SGOT) 46 U/L (15-37); Alanine Aminotransfer ALT/SGPT 30 U/L (13-56); Albumin, Serum 1.9 g/dL (3.2-5.0); Alkaline Phosphatase 64 U/L (45-117); Anion Gap 7 (5-15); BUN 8 mg/dL (7-18); BUN/Creat Ratio 9.8 RATIO (10-20); Calcium,Total 7.8 mg/dL (8.5-10.1); Chloride 104 mmol/L (98-107); Creatinine, Serum 0.82 mg/dL (0.55-1.02); EST Glomerular Filtration Rate 91 mL/min (>60); Est Glom Filt Rate - Afr Amer 111 mL/min (>60); Estimated Creatinine Clearance 87.51 ml/min; Globulin 3.9 g/dL (2.2-4.2); Glucose 131 mg/dL (74-106); Potassium 3.3 mmol/L (3.5-5.1); Protein, Total 5.8 g/dL (6.4-8.2); Sodium Level 138 mmol/L (136-145)
[2019-08-06] MEDS: 0.9% Saline Lock 10 ML Syringe IV ×9 (05:05→23:59)
[2019-08-06 05:51] LABS: Eosinophil 2 % (0-5); Lymphocyte 12 % (19-41); Monocyte 4 % (0-10); Myelocyte 2 (0-0); Neutrophil-Band 10 % (0-5); Neutrophil-Segmented 69 % (47-70); Total Cells Counted 100 (MANUAL DIFF)
[2019-08-06 05:52] LABS: Basophil 1 % (0-1); Differential Comment SCANNED
[2019-08-06 05:56] LABS: Atypical Lymphocyte RARE %
[2019-08-06 05:57] LABS: Hypochromasia 1+
[2019-08-06 05:59] LABS: Anisocytosis 1+
[2019-08-06 06:13] LABS: Neutrophil # 5.17 X10^3/uL (2.7-7.7)
[2019-08-06 06:50] LABS: Bedside Glucose 110 mg/dL (70-110)
[2019-08-06 07:04] LABS: Absolute Neutrophil Count 5.2 X10^3/uL (2.0-7.7)
[2019-08-06 07:05] LABS: Absolute Lymphocyte Count 0.78 X10^3/uL (0.83-4.51); Lymphocyte # 0.78 X10^3/ul (4.0)
[2019-08-06] MEDS: Ensure Clear 120 ML Liquid PO ×2 (08:30→17:58)
[2019-08-06] MEDS: Furosemide 40 MG/4 ML Vial IV ×2 (09:19→18:01)
[2019-08-06] MEDS: Enoxaparin 40 MG/0.4 ML Syringe SC (09:19)
[2019-08-06] MEDS: dilTIAZem CD 180 MG Capsule PO (09:19)
--- NOTE | 2019-08-06 10:44 | NURSING ---
SPOKE WITH DR MORIN REGARDING DISCONTINUING LACEY - STATES NOT TODAY - WANTS TO KEEP DUE TO PT GETTING IV LASIX, EDEMA & THAT PT HAD H/O URINARY RETENTION.
--- NOTE | 2019-08-06 11:13 | PN_ITS ---
Patient Problems: Active and Suspected Problems (Last Updated 07/30/19 @ 15:[address] Magdy Conn MD) New onset A. fib with RVR (Acute) Subjective: Patient seen and examined today. She is feeling better and pain is improving. She also diuresed significantly so she was started on IV Lasix and thinks her edema is coming down. Review of symptoms otherwise negative. She has remained hemodynamically stable. Potassium today is 3.3. Hemoglobin has dropped to 8.1 and WBC 6.6. Vitals/I&O's: Vital Signs Temp Pulse Resp BP Pulse Ox 98.3 F 92 18 106/62 93 08/06/19 09:00 08/06/19 09:00 08/06/19 09:00 08/06/19 09:00 08/06/19 09:00 Oxygen Flow Rate (L/min) 2 Oxygen Delivery Method Room Air Weight: 268 lb 4.841 oz Body Mass Index (BMI) 42.1 Finger Stick Blood Glucose 105 Intake and Output for Last 24 Hours 08/04/19 08/05/19 08/06/19 23:59 23:59 23:59 Intake Total 5574.16 / 5574.16 3613.33 / 3613.33 240 / 240 Output Total 6700 / 6700 500 / 500 Balance 5574.16 / 5574.16 -3086.67 / -3086.67 -260 / -260 General: Alert, Oriented x3, Cooperative, HEENT: Atraumatic, PERRLA, EOMI, Normocephalic Oral: Moist Mucosa Neck: Supple, No JVD, Negative Carotid Bruits Lungs: Clear to auscultation, Normal air movement, No rhonchi, No wheeze, No rales Cardiovascular: Regular rate, Regular Rhythm, Normal S1, Normal S2, No murmurs Abdomen: Bowel Sounds Present, Soft, - - mild generalised tenderness,no guarding or rebound tenderness. Extremities: No clubbing, No cyanosis, No edema, Capillary Refill Less than 3 Seconds Skin: No rashes, No breakdown, looks edematous Musculoskeletal: No Tenderness to Palpation of Joints or Extremities Lymphatic: No Cervical, Supraclavicular, or Inguinal Adenopathy Neurological: Cranial nerves II-XII grossly intact, Neuro grossly intact, Motor Exam 5/5 strength throughout Psych/Mental Status: - - Alert and oriented to time, place, person, mood and affect Microbiology Past 72 Hours 08/03/19 09:00 Blood Culture (Wb) - Anticubital Right Blood Culture - Preliminary No growth in 48 hours. 08/03/19 09:05 Blood Culture (Wb) - Line Draw Blood Culture - Preliminary No growth in 48 hours. 08/04/19 22:55 Mucosa - Nasopharyngeal Coronavirus COVID-19 PCR - Final 08/01/19 13:20 Urine, Clean Catch Urine Culture - Final Mixed Gram Positive Organisms Laboratory Results 08/05/19 11:44: POC Glucose 169 H 08/05/19 17:53: POC Glucose 129 H 08/05/19 21:49: POC Glucose 102 08/06/19 04:38: WBC 6.6, RBC 2.98 L, Hgb 8.1 L, Hct 25.5 L, MCV 85.6, MCH 27.2, MCHC 31.8 L, RDW Std Deviation 49.3 H, RDW Coeff of Varun 15.8 H, Plt Count 175, MPV 11.2, Neut % (Auto) Not Reportable, Absolute Neuts (auto) 5.2, Absolute Lymphs (auto) 0.78 L, Total Counted 100, Neutrophils % (Manual) 69, Band Neutrophils % 10 H, Lymphocytes % (Manual) 12 L, Monocytes % (Manual) 4, Eosinophils % (Manual) 2, Basophils % (Manual) 1, Myelocytes % 2 H, Differential Comment SCANNED, Diff Path Review May foll, Atypical Lymphocytes RARE, Hypochromasia 1+, Anisocytosis 1+ 08/06/19 04:38: Sodium 138, Potassium 3.3 L, Chloride 104, Carbon Dioxide 27.0, Anion Gap 7, BUN 8, Creatinine 0.82, Estim Creat Clear Calc 87.51, Est GFR (MDRD) Af Amer 111, Est GFR (MDRD) Non-Af 91, BUN/Creatinine Ratio 9.8 L, Glucose 131 H, Calcium 7.8 L, Total Bilirubin 0.50, AST 46 H, ALT 30, Alkaline Phosphatase 64, Total Protein 5.8 L, Albumin 1.9 L, Globulin 3.9, Albumin/Globulin Ratio 0.5 L 08/06/19 06:39: POC Glucose 110 Diagnostic Data Lung Scan-VQ NM 07/30/19 19:39 IMPRESSION: 1. NORMAL 99m Tc MAA pulmonary perfusion imaging examination, according to PIOPED II interpretive criteria. (Sotsman et al, Radiology 246: 941, 2008 Sopablo et al, J Nucl Med 49: 1741, 2008). 2. Central clumping of the aerosol may be secondary to obstructive airway mechanics and or clinical tachypnea. Electronically Signed: Dequan Pérez, at 14:27 EDT Tel , Service support , Abdomen/Pelvis CT 08/01/19 10:15 IMPRESSION: Hepatomegaly with diffuse fatty infiltration. Diffuse enlargement of the pancreas with findings in keeping with acute pancreatitis with infiltration of the fat in the omentum as described. Ascites. Bibasilar infiltrates more prominent on the left side with the small left pleural effusion. Electronically Signed: Popeye Nichols, at 11:12 EDT , Service support , Renal Ultrasound 08/01/19 10:46 IMPRESSION: Normal ultrasound of the kidneys. Bladder wall thickening. Splenomegaly. Electronically Signed: Popeye Nichols, at 12:30 EDT , Service support , Chest X-Ray 08/03/19 08:46 IMPRESSION: Bilateral basilar infiltrate/atelectasis. Electronically Signed: Bulmaro Dumas, at 17:38 EDT Tel [phone], Service support , Current Medications Acetaminophen (Tylenol) 650 mg PO Q6H PRN PRN PRN Reason: Pain Score 1-10/Temp > 100.7 F Last Admin: 08/05/19 19:54 Dose: 650 mg Documented by: Dextrose (D50w Syringe) 0 gm IV X1 PRN; Protocol PRN Reason: Hypoglycemia Diltiazem HCl (Cardizem Cd) 180 mg PO DAILY [facility] Last Admin: 08/06/19 09:19 Dose: 180 mg Documented by: Enoxaparin Sodium (Lovenox) 40 mg SC DAILY [facility] Last Admin: 08/06/19 09:19 Dose: 40 mg Documented by: Furosemide (Lasix) 40 mg IV BID@1000,1800 [facility] Last Admin: 08/06/19 09:19 Dose: 40 mg Documented by: Glucagon () 1 mg IM .X1 PRN PRN Reason: Hypoglycemia Hydromorphone HCl (Dilaudid Inj) 0.5 - 1 mg IV Q2H PRN PRN PRN Reason: Pain Score 6-10/10 Last Admin: 08/06/19 09:12 Dose: 1 mg Documented by: Sodium Chloride () 250 mls @ 15 mls/hr IV .[id number] PRN PRN Reason: Saline Flush Sodium Chloride () 250 mls @ 15 mls/hr IV .[id number] PRN PRN Reason: Additional IVPB Infusion Pantoprazole Sodium 40 mg/ (Sodium Chloride) 110 mls @ 330 mls/hr IV Q12 [facility] Last Infusion: 08/06/19 09:32 Dose: Infused Documented by: Piperacillin Sod/Tazobactam (Sod 3.375 gm/ Sodium Chloride) 50 mls @ 12.5 mls/hr IV Q8 [facility] Last Infusion: 08/06/19 09:06 Dose: Infused Documented by: Insulin Human Lispro (Humalog Kwikpen (Bkc)) 0 unit SC [facility]; Protocol Last Admin: 08/06/19 06:43 Dose: Not Given Documented by: Metoprolol Tartrate (Lopressor (Beta Jaja)) 5 mg IV Q6 PRN PRN Reason: HR >110 Last Admin: 07/31/19 16:06 Dose: 5 mg Documented by: Nutritional Formula (Lactose Free) (Ensure Clear) 120 ml PO TIDCM [facility] Last Admin: 08/06/19 08:30 Dose: 120 ml Documented by: Ondansetron HCl (Zofran) 4 mg IV Q8H PRN PRN PRN Reason: NAUSEA/VOMITING Last Admin: 08/05/19 01:17 Dose: 4 mg Documented by: Promethazine HCl (Phenergan) 12.5 mg IV Q6H PRN PRN PRN Reason: NAUSEA/VOMITING Last Admin: 07/31/19 10:35 Dose: 12.5 mg Documented by: Sodium Chloride () 10 - 40 ml IV UD PRN PRN Reason: SALINE FLUSH Last Admin: 08/06/19 09:17 Dose: 10 ml Documented by: Zolpidem Tartrate (Ambien (Generic)) 5 mg PO QHS PRN PRN PRN Reason: INSOMNIA Last Admin: 07/31/19 00:51 Dose: 5 mg Documented by: STROKE Vital Signs/Narrative: Vital Signs Temp Pulse Resp BP Pulse Ox 08/06/19 09:00 98.3 F 92 18 106/62 93 Medical Necessity - Tobacco Use Smoking Status: Never smoker Tobacco Use: Non-smoker Assessment/Plan All Active Problems (Last Updated 07/30/19 @ 15:[address] Magdy Conn MD) Acute on chronic pancreatitis (Acute) New onset A. fib with RVR (Acute) 1. Acute on chronic pancreatitis * pain is much better today. On clear liquids; will advance diet as tolerated today * continue IV fluid hydration and IV pain meds * likely to triglyceridemia, and she will need close follow up with her PCP and housemaid for better control of her triglycerides. * on IV zosyn * 2. Severe hypertriglyceridemia * Triglyceride level is 1577. * on fenofibrates and niacine * will need follow up with PCP and housemaid for more intensive treatment * 3. Generalised edema * Due to fluid overload. * urine output was 6.7L over last 24 hours. * continue diuresing with IV lasix; maintain taveras catheter to monitor urine output. * 4. Afib with RVR * now in sinus rhythm * cardiology on board; on PO cardizem and IV metoprolol prn * 2D echo showed EF of 65%, with no other significant findings. * 5. Hypokalemia: Potassium is 3.3 today. Will replace and monitor. 6. KIM: resolved. 7. Anemia: * Hemoglobin is 8.1 today. * Was 11.2 on admission had dropped to 9.4. * No clear evidence of bleeding. * will check stool for occult blood today. * 8. Type 2 diabetes mellitus: * A1C is 7/ Currently on clear liquid diet o/a of acute pancreatitis * ISS. Accuchecks ACHS * 9.Hypertension: on cardizem 10.Depression: on sertraline. DVT prophylaxis: lovenox Inpatient E&M: 27819 Subs Hosp L2
[2019-08-06 11:30] LABS: Pathologist Review Reviewed
[2019-08-06 11:36] LABS: Pathologist Review Reviewed
[2019-08-06] MEDS: Ondansetron 4 MG/2 ML Vial IV (12:03)
[2019-08-06 12:45] LABS: Bedside Glucose 166 mg/dL (70-110)
--- NOTE | 2019-08-06 12:52 | PCM.PN.SRG ---
Patient Problems: Active and Suspected Problems (Last Updated 07/30/19 @ 15:[address] Magdy Conn MD) New onset A. fib with RVR (Acute) Subjective: Patient did have a Infante placed for urinary retention also got some Lasix due to the edema. Patient states the pain is a little better rates it a 5?6/10 today. - Physical Exam Vitals/I&O's: Vital Signs Temp Pulse Resp BP Pulse Ox 99.5 F H 95 18 108/58 L 92 08/06/19 12:10 08/06/19 12:10 08/06/19 12:10 08/06/19 12:10 08/06/19 12:10 Oxygen Flow Rate (L/min) 2 Oxygen Delivery Method Room Air Weight: 268 lb 4.841 oz Body Mass Index (BMI) 42.1 Finger Stick Blood Glucose 105 Intake and Output for Last 24 Hours 08/04/19 08/05/19 08/06/19 23:59 23:59 23:59 Intake Total 5574.16 / 5574.16 3613.33 / 3613.33 780 / 780 Output Total 6700 / 6700 1750 / 1750 Balance 5574.16 / 5574.16 -3086.67 / -3086.67 -970 / -970 General: Alert, Oriented x3, Cooperative, No apparent distress HEENT: Atraumatic Lungs: Normal air movement Cardiovascular: Regular rate Abdomen: Soft, Tender - Diffusely tender, equivocal rebound, no guarding Microbiology Past 72 Hours 08/03/19 09:00 Blood Culture (Wb) - Anticubital Right Blood Culture - Preliminary No growth in 48 hours. 08/03/19 09:05 Blood Culture (Wb) - Line Draw Blood Culture - Preliminary No growth in 48 hours. 08/04/19 22:55 Mucosa - Nasopharyngeal Coronavirus COVID-19 PCR - Final 08/01/19 13:20 Urine, Clean Catch Urine Culture - Final Mixed Gram Positive Organisms Laboratory Results 08/05/19 04:10: Diff Path Review Reviewed 08/05/19 17:53: POC Glucose 129 H 08/05/19 21:49: POC Glucose 102 08/06/19 04:38: WBC 6.6, RBC 2.98 L, Hgb 8.1 L, Hct 25.5 L, MCV 85.6, MCH 27.2, MCHC 31.8 L, RDW Std Deviation 49.3 H, RDW Coeff of Varun 15.8 H, Plt Count 175, MPV 11.2, Neut % (Auto) Not Reportable, Absolute Neuts (auto) 5.2, Absolute Lymphs (auto) 0.78 L, Total Counted 100, Neutrophils % (Manual) 69, Band Neutrophils % 10 H, Lymphocytes % (Manual) 12 L, Monocytes % (Manual) 4, Eosinophils % (Manual) 2, Basophils % (Manual) 1, Myelocytes % 2 H, Differential Comment SCANNED, Diff Path Review Reviewed, Atypical Lymphocytes RARE, Hypochromasia 1+, Anisocytosis 1+ 08/06/19 04:38: Sodium 138, Potassium 3.3 L, Chloride 104, Carbon Dioxide 27.0, Anion Gap 7, BUN 8, Creatinine 0.82, Estim Creat Clear Calc 87.51, Est GFR (MDRD) Af Amer 111, Est GFR (MDRD) Non-Af 91, BUN/Creatinine Ratio 9.8 L, Glucose 131 H, Calcium 7.8 L, Total Bilirubin 0.50, AST 46 H, ALT 30, Alkaline Phosphatase 64, Total Protein 5.8 L, Albumin 1.9 L, Globulin 3.9, Albumin/Globulin Ratio 0.5 L 08/06/19 06:39: POC Glucose 110 08/06/19 12:14: POC Glucose 166 H Current Medications Acetaminophen (Tylenol) 650 mg PO Q6H PRN PRN PRN Reason: Pain Score 1-10/Temp > 100.7 F Last Admin: 08/05/19 19:54 Dose: 650 mg Documented by: Dextrose (D50w Syringe) 0 gm IV X1 PRN; Protocol PRN Reason: Hypoglycemia Diltiazem HCl (Cardizem Cd) 180 mg PO DAILY [facility] Last Admin: 08/06/19 09:19 Dose: 180 mg Documented by: Enoxaparin Sodium (Lovenox) 40 mg SC DAILY [facility] Last Admin: 08/06/19 09:19 Dose: 40 mg Documented by: Furosemide (Lasix) 40 mg IV BID@1000,1800 [facility] Last Admin: 08/06/19 09:19 Dose: 40 mg Documented by: Glucagon () 1 mg IM .X1 PRN PRN Reason: Hypoglycemia Hydromorphone HCl (Dilaudid Inj) 0.5 - 1 mg IV Q2H PRN PRN PRN Reason: Pain Score 6-10/10 Last Admin: 08/06/19 12:02 Dose: 1 mg Documented by: Sodium Chloride () 250 mls @ 15 mls/hr IV .[id number] PRN PRN Reason: Saline Flush Sodium Chloride () 250 mls @ 15 mls/hr IV .[id number] PRN PRN Reason: Additional IVPB Infusion Pantoprazole Sodium 40 mg/ (Sodium Chloride) 110 mls @ 330 mls/hr IV Q12 [facility] Last Infusion: 08/06/19 09:32 Dose: Infused Documented by: Piperacillin Sod/Tazobactam (Sod 3.375 gm/ Sodium Chloride) 50 mls @ 12.5 mls/hr IV Q8 [facility] Last Infusion: 08/06/19 09:06 Dose: Infused Documented by: Insulin Human Lispro (Humalog Kwikpen (Bkc)) 0 unit SC ACHS [facility]; Protocol Last Admin: 08/06/19 06:43 Dose: Not Given Documented by: Metoprolol Tartrate (Lopressor (Beta Jaja)) 5 mg IV Q6 PRN PRN Reason: HR >110 Last Admin: 07/31/19 16:06 Dose: 5 mg Documented by: Nutritional Formula (Lactose Free) (Ensure Clear) 120 ml PO TIDCM [facility] Last Admin: 08/06/19 08:30 Dose: 120 ml Documented by: Ondansetron HCl (Zofran) 4 mg IV Q8H PRN PRN PRN Reason: NAUSEA/VOMITING Last Admin: 08/06/19 12:03 Dose: 4 mg Documented by: Promethazine HCl (Phenergan) 12.5 mg IV Q6H PRN PRN PRN Reason: NAUSEA/VOMITING Last Admin: 07/31/19 10:35 Dose: 12.5 mg Documented by: Sodium Chloride () 10 - 40 ml IV UD PRN PRN Reason: SALINE FLUSH Last Admin: 08/06/19 12:03 Dose: 10 ml Documented by: Zolpidem Tartrate (Ambien (Generic)) 5 mg PO QHS PRN PRN PRN Reason: INSOMNIA Last Admin: 07/31/19 00:51 Dose: 5 mg Documented by: Medical Necessity - Tobacco Use Smoking Status: Never smoker Tobacco Use: Non-smoker Assessment/Plan All Active Problems (Last Updated 07/30/19 @ 15:[address] Magdy Conn MD) Acute on chronic pancreatitis (Acute) New onset A. fib with RVR (Acute) 23-year-old female with acute pancreatitis, history of pancreatitis 1. continue clears with Ensure clear until pain is significantly improved, patient still states that she has no increased pain with the clears 2. Creatinine within normal limits, Infante catheter placed for urinary retention yesterday 3. Continue pain control will change to 0.5-[address] Ogden will be covering for me starting tomorrow through Sunday. Claire Moser M.D. Pager: [phone] [facility] [address] [place] [address], [facility], [address] [place] [address] Office: [phone] Inpatient E&M: 13475 Subs Hosp L1
[2019-08-06] MEDS: Insulin Lispro 100 UNIT/ML INSULN.PEN SC (13:59)
--- NOTE | 2019-08-06 14:26 | PCM.NTREPORT ---
Nutrition Therapy Report - History Nutrition Services has been consulted to:: Manage nutrient details of diet order Current diet / nutrition support order:: clear liquids, ensure clear 120mL TID - Anthropometric Measurements Height:: 5 ft 3 in Weight:: 121.7 kg Body Mass Index (BMI):: 47.5 - Relevant Labs Relevant Labs:: WBC 11.7 K/mm3 (4.4-11.0) H 07/31/19 05:13 RBC 2.98 M/mm3 (4.2-5.4) L 08/06/19 04:38 Hgb 8.1 g/dL (12.0-15.0) L 08/06/19 04:38 Hct 25.5 % (37-47) L 08/06/19 04:38 MCH 26.6 pg (27.0-32.0) L 08/04/19 04:40 MCHC 31.8 g/dL (32-36) L 08/06/19 04:38 RDW Std Deviation 49.3 fl (35.1-43.9) H 08/06/19 04:38 RDW Coeff of Varun 15.8 % (11.6-14.6) H 08/06/19 04:38 Plt Count 143 K/mm3 (150-450) L 08/05/19 04:10 Immature Gran % (Auto) 1.800 % (0.0-0.9) H 08/04/19 04:40 Neut % (Auto) 70.1 % (47-70) H 08/04/19 04:40 Lymph % (Auto) 18.3 % (19-41) L 08/04/19 04:40 Absolute Neuts (auto) 10.4 X10^3/uL (2.0-7.7) H 07/31/19 05:13 Absolute Lymphs (auto) 0.78 X10^3/uL (0.83-4.51) L 08/06/19 04:38 Band Neutrophils % 10 % (0-5) H 08/06/19 04:38 Lymphocytes % (Manual) 12 % (19-41) L 08/06/19 04:38 Metamyelocytes % 4 % (0-1) H 08/05/19 04:10 Myelocytes % 2 (0-0) H 08/06/19 04:38 D-Dimer Quant (PE/DVT) 1.06 FEU/ug/m (0.27-0.49) H* 07/30/19 12:49 Sodium 135 mmol/L (136-145) L 08/01/19 05:32 Potassium 3.3 mmol/L (3.5-5.1) L 08/06/19 04:38 Chloride 111 mmol/L (98-107) H 08/05/19 04:10 Carbon Dioxide 18.0 mmol/L (21.0-32.0) L 08/03/19 05:40 BUN 6 mg/dL (7-18) L 08/05/19 04:10 Creatinine 1.10 mg/dL (0.55-1.02) H 08/03/19 05:40 Est GFR (MDRD) Af Amer 41 mL/min (>60) L 08/02/19 06:55 Est GFR (MDRD) Non-Af 34 mL/min (>60) L 08/02/19 06:55 BUN/Creatinine Ratio 9.8 RATIO (10-20) L 08/06/19 04:38 Glucose 131 mg/dL (74-106) H 08/06/19 04:38 Hemoglobin A1c 7.0 % (4.2-6.3) H 07/30/19 12:49 Calcium 7.8 mg/dL (8.5-10.1) L 08/06/19 04:38 Total Bilirubin 1.60 mg/dL (0.20-1.00) H 08/01/19 05:32 AST 46 U/L (15-37) H 08/06/19 04:38 ALT 68 U/L (13-56) H 08/01/19 05:32 Troponin I < 0.150 ng/mL (<0.045) H 07/30/19 12:49 C-React Prot Ext Range 3.35 mg/L (0.0-3.0) H 07/30/19 19:25 Total Protein 5.8 g/dL (6.4-8.2) L 08/06/19 04:38 Albumin 1.9 g/dL (3.2-5.0) L 08/06/19 04:38 Albumin/Globulin Ratio 0.5 RATIO (0.9-2.4) L 08/06/19 04:38 Triglycerides 1577 mg/dL (-199) H 07/30/19 12:49 HDL Cholesterol 12 mg/dL (40-) L 07/30/19 12:49 Lipase 980 U/L (73-393) H 08/05/19 04:10 TSH 3.99 uIU/mL (0.358-3.74) H 07/30/19 12:49 - Assessment Food / Nutrition-Related History:: Continues on clear liquids (day 3). Significant wt gain since admission (20.345 kg) noted. Lasix started yesterday afternoon, and wt loss of 6.6 kg reported. Generalized 2+ pitting edema persists. Pt reports good tolerance of clear liquids today, accepting of Ensure Clear TID. - Nutrition Diagnosis Problem / Etiology / Signs & Symptoms (PES):: Inadequate oral intake r/t pancreatitis as evidenced by NPO 3 days followed by clear liquid diet for 3 days w/ estimated intake of ~360 calories, 12 g protein per day. Evidence of Malnutrition Exists:: No - Nutrition Intervention Nutrition Prescription:: 6186-8634 calories/day; 70-80 g protein/day - Food / Nutrient Delivery Interventions Summary of nutrition intervention:: Pt was well-nourished at baseline. It has been ~7 days and pt has been unable to recieve >50% of estimated nutrition requirements via oral diet. No enteral nutrition access at this time. Ensure Clear TID as ordered is providing roughly 360 calories, 12 g protein/day (Estimated nutrition needs: 8727-5788 calories, 70-80 gram protein). Discussed w/ pt- she is not agreeable to increasing quantity/frequency of Ensure Clear to better meet nutritional needs. Discussed need for adequate protein/calories, pt verbalized understanding but does not want to consume more Ensure Clear. If it is to remain unlikely that PO diet will be further advanced in the next 24-48 hours, recommend NG placement for enteral nutrition support using a small peptide based, medium chain triglyceride formula (Vital AF 1.2). TPN can be used in patients with pancreatitis, however, it should be reserved for those patients who have experienced enteral nutrition failure or when nutrition needs cannot be met completely by enteral and/or oral nutrition support. Nutrition support ordered as / adjusted to:: advance diet as tolerated to regular, low fat. Continue Ensure Clear TID. If unable to advance diet in next 24-48 hours, consider enteral nutrition support. - MNT Monitoring Further MNT monitoring and evaluation required?: Yes MNT Follow-up in:: 1-2 days
[2019-08-06 17:56] LABS: Bedside Glucose 116 mg/dL (70-110)
[2019-08-06] MEDS: Acetaminophen 325 MG Tablet 650 MG PO ×2 (17:58→23:59)
[2019-08-06 22:27] LABS: Bedside Glucose 91 mg/dL (70-110)
[2019-08-07] VITALS (10 sets, daily range): BP systolic 111–135; BP diastolic 48–64; PULSE 83–98; RESP 16–18; TEMP 36.8–38; O2SAT 92–97
[2019-08-07] MEDS: 0.9% Saline Lock 10 ML Syringe IV ×6 (04:44→22:33)
[2019-08-07 04:54] LABS: Hematocrit 28.4 % (37-47); Hemoglobin 8.8 g/dL (12.0-15.0); Mean Corpuscular Hgb 26.2 pg (27.0-32.0); Mean Corpuscular Volume 84.5 fL (81-99); Mean Platelet Vol. 10.9 fl (6.2-12.0); POSITIVE COUNT YES; POSITIVE MORPHOLOGY YES; Platelet Count 229 K/mm3 (150-450); RBC Distribution Width CV 15.7 % (11.6-14.6); RBC Distribution Width SD 48.1 fl (35.1-43.9); Red Blood Count 3.36 M/mm3 (4.2-5.4); White Blood Count 7.4 K/mm3 (4.4-11.0)
[2019-08-07] MEDS: HYDROmorphone 1 MG/ML Syringe IV ×6 (05:02→22:31)
[2019-08-07 05:14] LABS: ALB/GLOB Ratio 0.5 RATIO (0.9-2.4); AST(SGOT) 71 U/L (15-37); Alanine Aminotransfer ALT/SGPT 39 U/L (13-56); Albumin, Serum 2.1 g/dL (3.2-5.0); Alkaline Phosphatase 100 U/L (45-117); Anion Gap 8 (5-15); BUN 9 mg/dL (7-18); BUN/Creat Ratio 10.3 RATIO (10-20); Calcium,Total 7.5 mg/dL (8.5-10.1); Chloride 99 mmol/L (98-107); Creatinine, Serum 0.87 mg/dL (0.55-1.02); EST Glomerular Filtration Rate 85 mL/min (>60); Est Glom Filt Rate - Afr Amer 102 mL/min (>60); Estimated Creatinine Clearance 82.48 ml/min; Globulin 4.4 g/dL (2.2-4.2); Glucose 120 mg/dL (74-106); Potassium 2.9 mmol/L (3.5-5.1); Protein, Total 6.5 g/dL (6.4-8.2); Sodium Level 137 mmol/L (136-145)
[2019-08-07 05:38] LABS: Scan Smear per Review Criteria MANUAL DIFF
[2019-08-07 05:45] LABS: Differential Indicated MANUAL DIFF; Lymphocyte 26 % (19-41); Monocyte 6 % (0-10); Neutrophil-Band 3 % (0-5); Neutrophil-Segmented 65 % (47-70); Total Cells Counted 100 (MANUAL DIFF)
[2019-08-07 05:46] LABS: Absolute Lymphocyte Count 1.91 X10^3/uL (0.83-4.51); Lymphocyte # 1.91 X10^3/ul (4.0); Monocyte# 0.44 X10^3/uL
[2019-08-07 07:05] LABS: Bedside Glucose 130 mg/dL (70-110)
[2019-08-07] MEDS: Potassium Chloride 10mEq/100mL 10 MEQ/100 ML IV.SOLN. 100 MEQ IV BOLUS ×8 (08:00→23:58)
[2019-08-07] MEDS: Acetaminophen 325 MG Tablet 650 MG PO (08:01)
[2019-08-07] MEDS: Ensure Clear 120 ML Liquid PO ×2 (09:25→11:30)
--- NOTE | 2019-08-07 09:30 | PN_ITS ---
Patient Problems: Active and Suspected Problems (Last Updated 07/30/19 @ 15:[address] Magdy Conn MD) New onset A. fib with RVR (Acute) Subjective: Patient seen and examined. Pain is better today. She is also diuresing well and says her generalized swelling is much better. Review of systems otherwise negative. She thinks she is ready for her diet to be advanced today. Labs and vitals reviewed. urine output over last 24 hours is 4.44.L. Her weight is down to 255 pounds. Vitals/I&O's: Vital Signs Temp Pulse Resp BP Pulse Ox 99.7 F H 98 18 135/64 H 92 08/07/19 04:57 08/07/19 04:57 08/07/19 04:57 08/07/19 04:57 08/07/19 04:57 Oxygen Flow Rate (L/min) 2 Oxygen Delivery Method Room Air Weight: 255 lb 11.779 oz Body Mass Index (BMI) 47.5 Finger Stick Blood Glucose 105 Intake and Output for Last 24 Hours 08/05/19 08/06/19 08/07/19 23:59 23:59 23:59 Intake Total 3613.33 / 3613.33 1660 / 1660 440 / 440 Output Total 6700 / 6700 4425 / 4425 500 / 500 Balance -3086.67 / -3086.67 -2765 / -2765 -60 / -60 General: Alert, Oriented x3, Cooperative, HEENT: Atraumatic, PERRLA, EOMI, Normocephalic Oral: Moist Mucosa Neck: Supple, No JVD, Negative Carotid Bruits Lungs: Clear to auscultation, Normal air movement, No rhonchi, No wheeze, No rales Cardiovascular: Regular rate, Regular Rhythm, Normal S1, Normal S2, No murmurs Abdomen: Bowel Sounds Present, Soft, - - minimal generalised tenderness,no guarding or rebound tenderness. Extremities: No clubbing, No cyanosis, No edema, Capillary Refill Less than 3 Seconds Skin: No rashes, No breakdown, looks edematous Musculoskeletal: No Tenderness to Palpation of Joints or Extremities Lymphatic: No Cervical, Supraclavicular, or Inguinal Adenopathy Neurological: Cranial nerves II-XII grossly intact, Neuro grossly intact, Motor Exam 5/5 strength throughout Psych/Mental Status: - - Alert and oriented to time, place, person, mood and affect Microbiology Past 72 Hours 08/06/19 17:55 Stool Stool Occult Blood (BILLY) - Final 08/03/19 09:00 Blood Culture (Wb) - Anticubital Right Blood Culture - Preliminary No growth in 48 hours. 08/03/19 09:05 Blood Culture (Wb) - Line Draw Blood Culture - Preliminary No growth in 48 hours. 08/04/19 22:55 Mucosa - Nasopharyngeal Coronavirus COVID-19 PCR - Final Laboratory Results 08/05/19 04:10: Diff Path Review Reviewed 08/06/19 04:38: Diff Path Review Reviewed 08/06/19 12:14: POC Glucose 166 H 08/06/19 17:45: POC Glucose 116 H 08/06/19 22:16: POC Glucose 91 08/07/19 04:40: Sodium 137, Potassium 2.9 L, Chloride 99, Carbon Dioxide 30.0, Anion Gap 8, BUN 9, Creatinine 0.87, Estim Creat Clear Calc 82.48, Est GFR (MDRD) Af Amer 102, Est GFR (MDRD) Non-Af 85, BUN/Creatinine Ratio 10.3, Glucose 120 H, Calcium 7.5 L, Total Bilirubin 0.70, AST 71 H, ALT 39, Alkaline Phosphatase 100, Total Protein 6.5, Albumin 2.1 L, Globulin 4.4 H, Albumin/Globulin Ratio 0.5 L 08/07/19 04:40: WBC 7.4, RBC 3.36 L, Hgb 8.8 L, Hct 28.4 L, MCV 84.5, MCH 26.2 L , MCHC 31.0 L, RDW Std Deviation 48.1 H, RDW Coeff of Varun 15.7 H, Plt Count 229, MPV 10.9, Immature Gran % (Auto) FEEDER CATCHER, Neut % (Auto) FEEDER CATCHER, Lymph % (Auto) FEEDER CATCHER, [place] % (Auto) FEEDER CATCHER, Eos % (Auto) FEEDER CATCHER, Baso % (Auto) FEEDER CATCHER, Absolute Neuts (auto) 5.0, Absolute Lymphs (auto) 1.91, Total Counted 100, Neutrophils % (Manual) 65, Band Neutrophils % 3, Lymphocytes % (Manual) 26, Monocytes % (Manual) 6, Nucleated RB C % FEEDER CATCHER, Diff Path Review May foll 20 06:25: POC Glucose 130 H Current Medications Acetaminophen (Tylenol) 650 mg PO Q6H PRN PRN PRN Reason: Pain Score 1-10/Temp > 100.7 F Last Admin: 08/07/19 08:01 Dose: 650 mg Documented by: Dextrose (D50w Syringe) 0 gm IV X1 PRN; Protocol PRN Reason: Hypoglycemia Diltiazem HCl (Cardizem Cd) 180 mg PO DAILY [facility] Last Admin: 08/06/19 09:19 Dose: 180 mg Documented by: Enoxaparin Sodium (Lovenox) 40 mg SC DAILY [facility] Last Admin: 08/06/19 09:19 Dose: 40 mg Documented by: Furosemide (Lasix) 40 mg PO BID@1000,1800 [facility] Glucagon () 1 mg IM .X1 PRN PRN Reason: Hypoglycemia Hydromorphone HCl (Dilaudid Inj) 0.5 - 1 mg IV Q2H PRN PRN PRN Reason: Pain Score 6-10/10 Last Admin: 08/07/19 08:01 Dose: 1 mg Documented by: Sodium Chloride () 250 mls @ 15 mls/hr IV .[id number] PRN PRN Reason: Saline Flush Sodium Chloride () 250 mls @ 15 mls/hr IV .[id number] PRN PRN Reason: Additional IVPB Infusion Pantoprazole Sodium 40 mg/ (Sodium Chloride) 110 mls @ 330 mls/hr IV Q12 [facility] Last Infusion: 08/06/19 22:44 Dose: Infused Documented by: Piperacillin Sod/Tazobactam (Sod 3.375 gm/ Sodium Chloride) 50 mls @ 12.5 mls/hr IV Q8 [facility] Last Infusion: 08/07/19 09:26 Dose: Infused Documented by: Potassium Chloride () 10 meq in 100 mls @ 100 mls/hr IV BOLUS Q1H [facility] Stop: 08/07/19 11:29 Last Admin: 08/07/19 09:24 Dose: 100 mls/hr Documented by: Insulin Human Lispro (Humalog Kwikpen (Bkc)) 0 unit SC ACHS [facility]; Protocol Last Admin: 08/07/19 06:27 Dose: Not Given Documented by: Metoprolol Tartrate (Lopressor (Beta Jaja)) 5 mg IV Q6 PRN PRN Reason: HR >110 Last Admin: 07/31/19 16:06 Dose: 5 mg Documented by: Nutritional Formula (Lactose Free) (Ensure Clear) 120 ml PO TIDCM [facility] Last Admin: 08/07/19 09:25 Dose: 120 ml Documented by: Ondansetron HCl (Zofran) 4 mg IV Q8H PRN PRN PRN Reason: NAUSEA/VOMITING Last Admin: 08/06/19 12:03 Dose: 4 mg Documented by: Promethazine HCl (Phenergan) 12.5 mg IV Q6H PRN PRN PRN Reason: NAUSEA/VOMITING Last Admin: 07/31/19 10:35 Dose: 12.5 mg Documented by: Sodium Chloride () 10 - 40 ml IV UD PRN PRN Reason: SALINE FLUSH Last Admin: 08/07/19 05:02 Dose: 10 ml Documented by: Zolpidem Tartrate (Ambien (Generic)) 5 mg PO QHS PRN PRN PRN Reason: INSOMNIA Last Admin: 07/31/19 00:51 Dose: 5 mg Documented by: Medical Necessity - Tobacco Use Smoking Status: Never smoker Tobacco Use: Non-smoker Assessment/Plan All Active Problems (Last Updated 07/30/19 @ 15:[address] Magdy Conn MD) Acute on chronic pancreatitis (Acute) New onset A. fib with RVR (Acute) 1. Acute on chronic pancreatitis * pain is much better today. Advance * continue IV fluid hydration and IV pain meds * likely to triglyceridemia, and she will need close follow up with her PCP and topology teacher for better control of her triglycerides. * on IV zosyn * 2. Severe hypertriglyceridemia * Triglyceride level is 1577. * on fenofibrates and niacine * will need follow up with PCP and topology teacher for more intensive treatment * 3. Generalised edema * Due to fluid overload. * urine output was 4.4L over last 24 hours. * wyatt switch to PO lasix today * 4. Afib with RVR * now in sinus rhythm * cardiology on board; on PO cardizem and IV metoprolol prn * 2D echo showed EF of 65%, with no other significant findings. * 5. Hypokalemia: Potassium is 2.9 today. Will aggressively replace and monitor 6. Anemia: * Hemoglobin is 8.8 today. * Was 11.2 on admission had dropped to 9.4. * No clear evidence of bleeding. * stool for occult blood is pending. * 8. Type 2 diabetes mellitus: * A1C is 7. Currently on clear liquid diet o/a of acute pancreatitis * ISS. Accuchecks ACHS * 9.Hypertension: on cardizem 10.Depression: on sertraline. DVT prophylaxis: lovenox Inpatient E&M: 03568 Subs Hosp L2
[2019-08-07] MEDS: Ondansetron 4 MG/2 ML Vial IV (09:36)
[2019-08-07 10:13] LABS: Anion Gap 7 (5-15); BUN 9 mg/dL (7-18); BUN/Creat Ratio 11.2 RATIO (10-20); Chloride 99 mmol/L (98-107); Glucose 107 mg/dL (74-106); Potassium 2.9 mmol/L (3.5-5.1); Sodium Level 137 mmol/L (136-145)
[2019-08-07] MEDS: Enoxaparin 40 MG/0.4 ML Syringe SC (10:50)
[2019-08-07] MEDS: dilTIAZem CD 180 MG Capsule PO (10:50)
[2019-08-07] MEDS: Furosemide 40 MG Tablet PO ×2 (11:29→18:08)
[2019-08-07 12:01] LABS: Pathologist Review Reviewed
--- NOTE | 2019-08-07 12:18 | PCM.PN.SRG ---
Patient Problems: Active and Suspected Problems (Last Updated 07/30/19 @ 15:[address] Magdy Conn MD) New onset A. fib with RVR (Acute) Subjective: Patient subjectively feels better today. Objective: Still some slight tenderness in the abdomen but no peritoneal signs are identified - Physical Exam Vitals/I&O's: Vital Signs Temp Pulse Resp BP Pulse Ox 98.3 F 83 18 111/48 L 97 08/07/19 10:33 08/07/19 10:33 08/07/19 10:33 08/07/19 10:33 08/07/19 10:33 Oxygen Flow Rate (L/min) 2 Oxygen Delivery Method Room Air Weight: 255 lb 11.779 oz Body Mass Index (BMI) 47.5 Finger Stick Blood Glucose 105 Intake and Output for Last 24 Hours 08/05/19 08/06/19 08/07/19 23:59 23:59 23:59 Intake Total 3613.33 / 3613.33 1660 / 1660 750 / 750 Output Total 6700 / 6700 4425 / 4425 500 / 500 Balance -3086.67 / -3086.67 -2765 / -2765 250 / 250 Microbiology Past 72 Hours 08/06/19 17:55 Stool Stool Occult Blood (BILLY) - Final 08/03/19 09:00 Blood Culture (Wb) - Anticubital Right Blood Culture - Preliminary No growth in 48 hours. 08/03/19 09:05 Blood Culture (Wb) - Line Draw Blood Culture - Preliminary No growth in 48 hours. 08/04/19 22:55 Mucosa - Nasopharyngeal Coronavirus COVID-19 PCR - Final Laboratory Results 08/06/19 12:14: POC Glucose 166 H 08/06/19 17:45: POC Glucose 116 H 08/06/19 22:16: POC Glucose 91 08/07/19 04:40: Sodium 137, Potassium 2.9 L, Chloride 99, Carbon Dioxide 30.0, Anion Gap 8, BUN 9, Creatinine 0.87, Estim Creat Clear Calc 82.48, Est GFR (MDRD) Af Amer 102, Est GFR (MDRD) Non-Af 85, BUN/Creatinine Ratio 10.3, Glucose 120 H, Calcium 7.5 L, Total Bilirubin 0.70, AST 71 H, ALT 39, Alkaline Phosphatase 100, Total Protein 6.5, Albumin 2.1 L, Globulin 4.4 H, Albumin/Globulin Ratio 0.5 L 08/07/19 04:40: WBC 7.4, RBC 3.36 L, Hgb 8.8 L, Hct 28.4 L, MCV 84.5, MCH 26.2 L, MCHC 31.0 L, RDW Std Deviation 48.1 H, RDW Coeff of Varun 15.7 H, Plt Count 229, MPV 10.9, Immature Gran % (Auto) FEEDER ASSOCIATE, Neut % (Auto) FEEDER ASSOCIATE, Lymph % (Auto) FEEDER ASSOCIATE, [place] % (Auto) FEEDER ASSOCIATE, Eos % (Auto) FEEDER ASSOCIATE, Baso % (Auto) FEEDER ASSOCIATE, Absolute Neuts (auto) 5.0, Absolute Lymphs (auto) 1.91, Total Counted 100, Neutrophils % (Manual) 65, Band Neutrophils % 3, Lymphocytes % (Manual) 26, Monocytes % (Manual) 6, Nucleated RBC % FEEDER ASSOCIATE, Diff Path Review Reviewed 08/07/19 06:25: POC Glucose 130 H 08/07/19 09:35: Sodium 137, Potassium 2.9 L, Chloride 99, Carbon Dioxide 31.0, Anion Gap 7, BUN 9, Creatinine 0.80, BUN/Creatinine Ratio 11.2, Glucose 107 H 08/07/19 09:35: Ionized Calcium Pending Current Medications Acetaminophen (Tylenol) 650 mg PO Q6H PRN PRN PRN Reason: Pain Score 1-10/Temp > 100.7 F Last Admin: 08/07/19 08:01 Dose: 650 mg Documented by: Dextrose (D50w Syringe) 0 gm IV X1 PRN; Protocol PRN Reason: Hypoglycemia Diltiazem HCl (Cardizem Cd) 180 mg PO DAILY [facility] Last Admin: 08/07/19 10:50 Dose: 180 mg Documented by: Enoxaparin Sodium (Lovenox) 40 mg SC DAILY [facility] Last Admin: 08/07/19 10:50 Dose: 40 mg Documented by: Furosemide (Lasix) 40 mg PO BID@1000,1800 [facility] Last Admin: 08/07/19 11:29 Dose: 40 mg Documented by: Glucagon () 1 mg IM .X1 PRN PRN Reason: Hypoglycemia Hydromorphone HCl (Dilaudid Inj) 0.5 - 1 mg IV Q2H PRN PRN PRN Reason: Pain Score 6-10/10 Last Admin: 08/07/19 10:45 Dose: 1 mg Documented by: Sodium Chloride () 250 mls @ 15 mls/hr IV .[id number] PRN PRN Reason: Saline Flush Sodium Chloride () 250 mls @ 15 mls/hr IV .[id number] PRN PRN Reason: Additional IVPB Infusion Pantoprazole Sodium 40 mg/ (Sodium Chloride) 110 mls @ 330 mls/hr IV Q12 [facility] Last Infusion: 08/07/19 09:55 Dose: Infused Documented by: Piperacillin Sod/Tazobactam (Sod 3.375 gm/ Sodium Chloride) 50 mls @ 12.5 mls/hr IV Q8 [facility] Last Infusion: 08/07/19 09:26 Dose: Infused Documented by: Insulin Human Lispro (Humalog Kwikpen (Bkc)) 0 unit SC ACHS [facility]; Protocol Last Admin: 08/07/19 11:32 Dose: Not Given Documented by: Metoprolol Tartrate (Lopressor (Beta Jaja)) 5 mg IV Q6 PRN PRN Reason: HR >110 Last Admin: 07/31/19 16:06 Dose: 5 mg Documented by: Nutritional Formula (Lactose Free) (Ensure Clear) 120 ml PO TIDCM [facility] Last Admin: 08/07/19 11:30 Dose: 120 ml Documented by: Ondansetron HCl (Zofran) 4 mg IV Q8H PRN PRN PRN Reason: NAUSEA/VOMITING Last Admin: 08/07/19 09:36 Dose: 4 mg Documented by: Promethazine HCl (Phenergan) 12.5 mg IV Q6H PRN PRN PRN Reason: NAUSEA/VOMITING Last Admin: 07/31/19 10:35 Dose: 12.5 mg Documented by: Sodium Chloride () 10 - 40 ml IV UD PRN PRN Reason: SALINE FLUSH Last Admin: 08/07/19 09:39 Dose: 20 ml Documented by: Zolpidem Tartrate (Ambien (Generic)) 5 mg PO QHS PRN PRN PRN Reason: INSOMNIA Last Admin: 07/31/19 00:51 Dose: 5 mg Documented by: Medical Necessity - Tobacco Use Smoking Status: Never smoker Tobacco Use: Non-smoker Assessment/Plan All Active Problems (Last Updated 07/30/19 @ 15:[address] Magdy Conn MD) Acute on chronic pancreatitis (Acute) New onset A. fib with RVR (Acute) Continue medical care. Slow progress. Inpatient E&M: 09138 Subs Hosp L2
[2019-08-07 12:40] LABS: Bedside Glucose 111 mg/dL (70-110)
[2019-08-07 16:45] LABS: Bedside Glucose 127 mg/dL (70-110)
[2019-08-07 22:20] LABS: Bedside Glucose 87 mg/dL (70-110)
[2019-08-08] VITALS (8 sets, daily range): BP systolic 115–127; BP diastolic 52–70; PULSE 74–89; RESP 16–18; TEMP 36.9–37.4; O2SAT 93–94
[2019-08-08] MEDS: HYDROmorphone 1 MG/ML Syringe IV ×6 (01:18→22:21)
[2019-08-08] MEDS: Acetaminophen 325 MG Tablet 650 MG PO ×2 (01:18→22:21)
[2019-08-08] MEDS: 0.9% Saline Lock 10 ML Syringe IV ×6 (01:20→22:23)
[2019-08-08 01:30] LABS: Bedside Glucose 98 mg/dL (70-110)
[2019-08-08] MEDS: Ondansetron 4 MG/2 ML Vial IV (03:42)
[2019-08-08 04:31] LABS: Hematocrit 24.4 % (37-47); Hemoglobin 7.6 g/dL (12.0-15.0); Mean Corp Hgb Conc 31.1 g/dL (32-36); Mean Corpuscular Hgb 26.6 pg (27.0-32.0); Mean Corpuscular Volume 85.3 fL (81-99); Mean Platelet Vol. 10.5 fl (6.2-12.0); POSITIVE COUNT YES; POSITIVE MORPHOLOGY YES; Platelet Count 213 K/mm3 (150-450); RBC Distribution Width CV 15.7 % (11.6-14.6); RBC Distribution Width SD 48.9 fl (35.1-43.9); Red Blood Count 2.86 M/mm3 (4.2-5.4); White Blood Count 6.3 K/mm3 (4.4-11.0)
[2019-08-08 04:33] LABS: Differential Indicated MANUAL DIFF
[2019-08-08 04:47] LABS: ALB/GLOB Ratio 0.5 RATIO (0.9-2.4); AST(SGOT) 58 U/L (15-37); Alanine Aminotransfer ALT/SGPT 38 U/L (13-56); Alkaline Phosphatase 86 U/L (45-117); Anion Gap 6 (5-15); BUN 9 mg/dL (7-18); BUN/Creat Ratio 12.1 RATIO (10-20); Calcium,Total 7.5 mg/dL (8.5-10.1); Chloride 98 mmol/L (98-107); Creatinine, Serum 0.75 mg/dL (0.55-1.02); EST Glomerular Filtration Rate 102 mL/min (>60); Est Glom Filt Rate - Afr Amer 123 mL/min (>60); Estimated Creatinine Clearance 95.68 ml/min; Globulin 4.1 g/dL (2.2-4.2); Glucose 102 mg/dL (74-106); Potassium 2.9 mmol/L (3.5-5.1); Protein, Total 6.1 g/dL (6.4-8.2); Sodium Level 137 mmol/L (136-145)
[2019-08-08 04:58] LABS: Absolute Neutrophil Count 5.5 X10^3/uL (2.0-7.7); Eosinophil 3 % (0-5); Lymphocyte 8 % (19-41); Metamyelocyte 1 % (0-1); Monocyte 2 % (0-10); Neutrophil # 5.48 X10^3/uL (2.7-7.7); Neutrophil-Band 3 % (0-5); Neutrophil-Segmented 84 % (47-70); Total Cells Counted 100 (MANUAL DIFF)
[2019-08-08 04:59] LABS: Eosinophil# 0.19 X10^3/uL; Monocyte# 0.13 X10^3/uL
[2019-08-08 06:50] LABS: Bedside Glucose 98 mg/dL (70-110)
[2019-08-08 08:23] LABS: Ferritin 825 ng/mL (8-252); Iron 20 ug/dL (50-170); Iron Binding Capacity,Total 193 ug/dL (250-450); Magnesium 1.3 mg/dL (1.6-2.6); PERCENT IRON SATURATION 10.4 % (15.0-55.0)
[2019-08-08] MEDS: Potassium Chloride 10mEq/100mL 10 MEQ/100 ML IV.SOLN. 100 MEQ IV BOLUS ×4 (08:43→12:26)
[2019-08-08] MEDS: Ensure Clear 120 ML Liquid PO ×2 (08:49→16:59)
[2019-08-08] MEDS: dilTIAZem CD 180 MG Capsule PO (09:34)
--- NOTE | 2019-08-08 10:52 | PN_ITS ---
Patient Problems: Active and Suspected Problems (Last Updated 07/30/19 @ 15:[address] Magdy Conn MD) New onset A. fib with RVR (Acute) Subjective: Patient seen and examined. Abdominal pain has improved. She has no other complaints this morning. She was able to tolerate a regular diet. Labs and vitals reviewed. Potassium is down to 2.9 and magnesium is 1.3. Hemoglobin is also down to 7.6. Vitals/I&O's: Vital Signs Temp Pulse Resp BP Pulse Ox 98.9 F 89 18 115/70 94 08/08/19 09:30 08/08/19 09:30 08/08/19 09:30 08/08/19 09:30 08/08/19 09:30 Oxygen Flow Rate (L/min) 2 Oxygen Delivery Method Room Air Weight: 252 lb 3.341 oz Body Mass Index (BMI) 47.5 Finger Stick Blood Glucose 105 Intake and Output for Last 24 Hours 08/06/19 08/07/19 08/08/19 23:59 23:59 23:59 Intake Total 1660 / 1660 2453.79 / 2453.79 386.46 / 386.46 Output Total 4425 / 4425 2125 / 2125 Balance -2765 / -2765 328.79 / 328.79 386.46 / 386.46 General: Alert, Oriented x3, Cooperative, HEENT: Atraumatic, PERRLA, EOMI, Normocephalic Oral: Moist Mucosa Neck: Supple, No JVD, Negative Carotid Bruits Lungs: Clear to auscultation, Normal air movement, No rhonchi, No wheeze, No rales Cardiovascular: Regular rate, Regular Rhythm, Normal S1, Normal S2, No murmurs Abdomen: Bowel Sounds Present, Soft, - - minimal generalised tenderness,no guarding or rebound tenderness. Extremities: No clubbing, No cyanosis, No edema, Capillary Refill Less than 3 Seconds Skin: No rashes, No breakdown, looks edematous Musculoskeletal: No Tenderness to Palpation of Joints or Extremities Lymphatic: No Cervical, Supraclavicular, or Inguinal Adenopathy Neurological: Cranial nerves II-XII grossly intact, Neuro grossly intact, Motor Exam 5/5 strength throughout Psych/Mental Status: - - Alert and oriented to time, place, person, mood and affect Microbiology Past 72 Hours 08/03/19 09:00 Blood Culture (Wb) - Anticubital Right Blood Culture - Final No growth in 5 days. 08/03/19 09:05 Blood Culture (Wb) - Line Draw Blood Culture - Final No growth in 5 days. 08/06/19 17:55 Stool Stool Occult Blood (BILLY) - Final Laboratory Results 08/07/19 04:40: Diff Path Review Reviewed 08/07/19 11:31: POC Glucose 111 H 08/07/19 16:32: POC Glucose 127 H 08/07/19 22:10: POC Glucose 87 08/08/19 01:17: POC Glucose 98 08/08/19 04:20: Sodium 137, Potassium 2.9 L, Chloride 98, Carbon Dioxide 33.0 H, Anion Gap 6, BUN 9, Creatinine 0.75, Estim Creat Clear Calc 95.68, Est GFR (MDRD) Af Amer 123, Est GFR (MDRD) Non-Af 102, BUN/Creatinine Ratio 12.1, Glucose 102, Calcium 7.5 L, Total Bilirubin 0.70, AST 58 H, ALT 38, Alkaline Phosphatase 86, Total Protein 6.1 L, Albumin 2.0 L, Globulin 4.1, Albumin/Globulin Ratio 0.5 L 08/08/19 04:20: WBC 6.3, RBC 2.86 L, Hgb 7.6 L, Hct 24.4 L, MCV 85.3, MCH 26.6 L , MCHC 31.1 L, RDW Std Deviation 48.9 H, RDW Coeff of Varun 15.7 H, Plt Count 213, MPV 10.5, Neut % (Auto) Not Reportable, Absolute Neuts (auto) 5.5, Absolute Lymphs (auto) 0.50 L, Total Counted 100, Neutrophils % (Manual) 84 H, Band Neutrophils % 3, Lymphocytes % (Manual) 8 L, Monocytes % (Manual) 2, Eosinophils % (Manual) 3, Metamyelocytes % 1, Diff Path Review May 08/08/19 04:20: Magnesium 1.3 L, Iron 20 L, TIBC 193 L, Iron Saturation 10.4 L, Ferritin 825 H 08/08/19 06:20: Blood Type A POSITIVE, Antibody Screen NEGATIVE 08/08/19 06:40: POC Glucose 98 Current Medications Acetaminophen (Tylenol) 650 mg PO Q6H PRN PRN PRN Reason: Pain Score 1-10/Temp > 100.7 F Last Admin: 08/08/19 01:18 Dose: 650 mg Documented by: Dextrose (D50w Syringe) 0 gm IV X1 PRN; Protocol PRN Reason: Hypoglycemia Diltiazem HCl (Cardizem Cd) [address] [facility] Last Admin: 08/08/19 09:34 Dose: 180 mg Documented by: Glucagon () 1 mg IM .X1 PRN PRN Reason: Hypoglycemia Hydromorphone HCl (Dilaudid Inj) 0.5 - 1 mg IV Q2H PRN PRN PRN Reason: Pain Score 6-10/10 Last Admin: 08/08/19 10:03 Dose: 1 mg Documented by: Sodium Chloride () 250 mls @ 15 mls/hr IV .[id number] PRN PRN Reason: Saline Flush Last Infusion: 08/08/19 01:33 Dose: 0 mls/hr Documented by: Sodium Chloride () 250 mls @ 15 mls/hr IV .[id number] PRN PRN Reason: Additional IVPB Infusion Pantoprazole Sodium 40 mg/ (Sodium Chloride) 110 mls @ 330 mls/hr IV Q12 [facility] Last Infusion: 08/08/19 10:16 Dose: Infused Documented by: Piperacillin Sod/Tazobactam (Sod 3.375 gm/ Sodium Chloride) 50 mls @ 12.5 mls/hr IV Q8 [facility] Last Infusion: 08/08/19 09:36 Dose: Infused Documented by: Potassium Chloride () 10 meq in 100 mls @ 100 mls/hr IV BOLUS Q1H [facility] Stop: 08/08/19 11:59 Last Admin: 08/08/19 09:57 Dose: 100 mls/hr Documented by: Magnesium Sulfate () 4 gm in 100 mls @ 25 mls/hr IV X1 ONE Stop: 08/08/19 13:29 Insulin Human Lispro (Humalog Kwikpen (Bkc)) [address] [facility]; Protocol Last Admin: 08/08/19 06:41 Dose: Not Given Documented by: Metoprolol Tartrate (Lopressor (Beta Jaja)) 5 mg IV Q6 PRN PRN Reason: HR >110 Last Admin: 07/31/19 16:06 Dose: 5 mg Documented by: Nutritional Formula (Lactose Free) (Ensure Clear) 120 ml PO TIDCM BORIS Last Admin: 08/08/19 08:49 Dose: 120 ml Documented by: Ondansetron HCl (Zofran) 4 mg IV Q8H PRN PRN PRN Reason: NAUSEA/VOMITING Last Admin: 08/08/19 03:42 Dose: 4 mg Documented by: Promethazine HCl (Phenergan) 12.5 mg IV Q6H PRN PRN PRN Reason: NAUSEA/VOMITING Last Admin: 07/31/19 10:35 Dose: 12.5 mg Documented by: Sodium Chloride () 10 - 40 ml IV UD PRN PRN Reason: SALINE FLUSH Last Admin: 08/08/19 10:02 Dose: 10 ml Documented by: Zolpidem Tartrate (Ambien (Generic)) 5 mg PO QHS PRN PRN PRN Reason: INSOMNIA Last Admin: 07/31/19 00:51 Dose: 5 mg Documented by: STROKE Vital Signs/Narrative: Vital Signs Temp Pulse Resp BP Pulse Ox 08/08/19 09:30 98.9 F 89 18 115/70 94 08/08/19 07:00 79 Medical Necessity - Tobacco Use Smoking Status: Never smoker Tobacco Use: Non-smoker Assessment/Plan All Active Problems (Last Updated 07/30/19 @ 15:[address] Magdy Conn MD) Acute on chronic pancreatitis (Acute) New onset A. fib with RVR (Acute) 1. Acute on chronic pancreatitis * pain is much better today. diet advanced and she tolerated normal diet * continue IV fluid hydration and IV pain meds * likely to triglyceridemia, and she will need close follow up with her PCP and urban and regional planner for better control of her triglycerides. * on IV zosyn; can dc IV antibiotics now * 2. Severe hypertriglyceridemia * Triglyceride level was 1577 on admission. * on fenofibrates and niacin * will need follow up with PCP and urban and regional planner for more intensive treatment * 3. Generalised edema * Due to fluid overload. * urine output was 2.1L over last 24 hours * will dc lasix today as ptient is having good urine output 4. Afib with RVR * now in sinus rhythm * cardiology on board; on PO cardizem and IV metoprolol prn * 2D echo showed EF of 65%, with no other significant findings. * 5. Hypokalemia: Potassium is still 2.9 today. Will aggressively replace and monitor 6. Hypomagnesemia: Mg is 1.3. Will replace and monitor 7. Anemia: * Hb is down to 7.6 today. Was 11.2 on admission * is a normocytic, hypochromic anemia * patient started having her period yesterday, and I think that is the cause of her anemia * fecal occult blood was negative * iron panel showed iron level of 20, with low TIBC of 193 and iron saturation of 10.4, with ferritin level of 825. It does appear she has anemia of chronic disease adn a functional iron deficiency anemia as well. * will give oral iron supplements * * 8. Type 2 diabetes mellitus: * A1C is 7. * ISS. Accuchecks ACHS * 9.Hypertension: on cardizem 10.Depression: on sertraline. DVT prophylaxis: lovenox dc'd o/a of anemia. On SCds Inpatient E&M: [id number] [facility] L[facility]
[2019-08-08] MEDS: Magnesium Sulfate 4gm/100mL 4 GM/100 ML IV.SOLN. IV (10:54)
[2019-08-08 12:18] LABS: Pathologist Review Reviewed
[2019-08-08 12:40] LABS: Bedside Glucose 127 mg/dL (70-110)
[2019-08-08 17:05] LABS: Bedside Glucose 128 mg/dL (70-110)
[2019-08-08 18:04] LABS: Anion Gap 5 (5-15); BUN 8 mg/dL (7-18); BUN/Creat Ratio 11.3 RATIO (10-20); Calcium,Total 8.2 mg/dL (8.5-10.1); Chloride 99 mmol/L (98-107); Creatinine, Serum 0.71 mg/dL (0.55-1.02); EST Glomerular Filtration Rate 108 mL/min (>60); Est Glom Filt Rate - Afr Amer 131 mL/min (>60); Estimated Creatinine Clearance 101.07 ml/min; Glucose 127 mg/dL (74-106); Potassium 3.6 mmol/L (3.5-5.1); Sodium Level 136 mmol/L (136-145)
[2019-08-08 22:21] LABS: Bedside Glucose 102 mg/dL (70-110)
[2019-08-09] VITALS (11 sets, daily range): BP systolic 109–139; BP diastolic 51–76; PULSE 70–84; RESP 16; TEMP 36.9–37.3; O2SAT 92–98
[2019-08-09] MEDS: HYDROmorphone 1 MG/ML Syringe IV ×5 (03:00→20:14)
[2019-08-09] MEDS: 0.9% Saline Lock 10 ML Syringe IV ×7 (03:01→20:15)
[2019-08-09 04:54] LABS: Hematocrit 24.5 % (37-47); Hemoglobin 7.4 g/dL (12.0-15.0); Mean Corp Hgb Conc 30.2 g/dL (32-36); Mean Corpuscular Hgb 26.1 pg (27.0-32.0); Mean Corpuscular Volume 86.6 fL (81-99); POSITIVE COUNT YES; POSITIVE MORPHOLOGY YES; Platelet Count 243 K/mm3 (150-450); RBC Distribution Width CV 15.6 % (11.6-14.6); RBC Distribution Width SD 49.2 fl (35.1-43.9); Red Blood Count 2.83 M/mm3 (4.2-5.4); White Blood Count 6.1 K/mm3 (4.4-11.0)
[2019-08-09 05:06] LABS: Differential Indicated MANUAL DIFF
[2019-08-09 05:10] LABS: Anion Gap 7 (5-15); BUN 9 mg/dL (7-18); BUN/Creat Ratio 12.2 RATIO (10-20); Calcium,Total 8.1 mg/dL (8.5-10.1); Chloride 99 mmol/L (98-107); Creatinine, Serum 0.74 mg/dL (0.55-1.02); EST Glomerular Filtration Rate 103 mL/min (>60); Est Glom Filt Rate - Afr Amer 125 mL/min (>60); Estimated Creatinine Clearance 96.97 ml/min; Glucose 110 mg/dL (74-106); Magnesium 2.1 mg/dL (1.6-2.6); Potassium 3.3 mmol/L (3.5-5.1); Sodium Level 137 mmol/L (136-145)
[2019-08-09 05:39] LABS: Eosinophil 1 % (0-5); Lymphocyte 12 % (19-41); Metamyelocyte 4 % (0-1); Monocyte 2 % (0-10); Myelocyte 1 (0-0); Neutrophil-Band 17 % (0-5); Neutrophil-Segmented 63 % (47-70); Total Cells Counted 100 (MANUAL DIFF)
[2019-08-09 05:40] LABS: Absolute Lymphocyte Count 0.73 X10^3/uL (0.83-4.51); Absolute Neutrophil Count 4.8 X10^3/uL (2.0-7.7); Lymphocyte # 0.73 X10^3/ul (4.0); Neutrophil # 4.84 X10^3/uL (2.7-7.7)
[2019-08-09 05:42] LABS: Platelet Estimate ADEQUATE (ADEQ); Polychromasia RARE; Toxic Granulation RARE
[2019-08-09 06:51] LABS: Bedside Glucose 129 mg/dL (70-110)
[2019-08-09] MEDS: dilTIAZem CD 180 MG Capsule PO (09:35)
[2019-08-09 10:05] LABS: Hematocrit 23.4 % (37-47); Hemoglobin 7.2 g/dL (12.0-15.0)
--- NOTE | 2019-08-09 11:20 | NURSING ---
This RN taking over care of pt at this time.
[2019-08-09] MEDS: Ensure Clear 120 ML Liquid PO ×2 (11:54→17:35)
[2019-08-09] MEDS: Ferrous Sulfate 325 MG Tablet PO ×2 (12:38→17:34)
[2019-08-09 12:45] LABS: Bedside Glucose 97 mg/dL (70-110)
--- NOTE | 2019-08-09 14:21 | PN_ITS ---
Patient Problems: Active and Suspected Problems (Last Updated 07/30/19 @ 15:[address] Magdy Conn MD) New onset A. fib with RVR (Acute) Subjective: Patient seen and examined. She has no complaints and feels well. Abdominal pain has resolved. Review systems otherwise negative. Labs and vitals reviewed. Hemoglobin noted to have dropped to 7.5 today. It was repeated and had dropped further to 7.2. Patient states that she seen her. She usually has very heavy periods. Potassium is also 3.3. Vitals/I&O's: Vital Signs Temp Pulse Resp BP Pulse Ox 99.1 F 73 16 114/62 92 08/09/19 09:00 08/09/19 09:00 08/09/19 09:00 08/09/19 09:00 08/09/19 09:00 Oxygen Flow Rate (L/min) 2 Oxygen Delivery Method Room Air Weight: 249 lb 1.957 oz Body Mass Index (BMI) 47.5 Finger Stick Blood Glucose 105 Intake and Output for Last 24 Hours 08/07/19 08/08/19 08/09/19 23:59 23:59 23:59 Intake Total 2453.79 / 2453.79 2064.79 / 2064.79 1392.92 / 1392.92 Output Total 2125 / 2125 Balance 328.79 / 328.79 2064.79 / 2064.79 1392.92 / 1392.92 General: Alert, Oriented x3, Cooperative, HEENT: Atraumatic, PERRLA, EOMI, Normocephalic Oral: Moist Mucosa Neck: Supple, No JVD, Negative Carotid Bruits Lungs: Clear to auscultation, Normal air movement, No rhonchi, No wheeze, No rales Cardiovascular: Regular rate, Regular Rhythm, Normal S1, Normal S2, No murmurs Abdomen: Bowel Sounds Present, Soft, - - nontender, no organomegaly, obese Extremities: No clubbing, No cyanosis, No edema, Capillary Refill Less than 3 Seconds Skin: No rashes, No breakdown, looks edematous Musculoskeletal: No Tenderness to Palpation of Joints or Extremities Lymphatic: No Cervical, Supraclavicular, or Inguinal Adenopathy Neurological: Cranial nerves II-XII grossly intact, Neuro grossly intact, Motor Exam 5/5 strength throughout Psych/Mental Status: - - Alert and oriented to time, place, person, mood and affect Microbiology Past 72 Hours 08/03/19 09:00 Blood Culture (Wb) - Anticubital Right Blood Culture - Final No growth in 5 days. 08/03/19 09:05 Blood Culture (Wb) - Line Draw Blood Culture - Final No growth in 5 days. 08/06/19 17:55 Stool Stool Occult Blood (BILLY) - Final Laboratory Results 08/08/19 16:58: POC Glucose 128 H 08/08/19 17:22: Sodium 136, Potassium 3.6, Chloride 99, Carbon Dioxide 32.0, Anion Gap 5, BUN 8, Creatinine 0.71, Estim Creat Clear Calc 101.07, Est GFR ( RD) Af Amer 131, Est GFR (MDRD) Non-Af 108, BUN/Creatinine Ratio 11.3, Glucose 127 H, Calcium 8.2 L 08/08/19 22:15: POC Glucose 102 08/09/19 04:35: WBC 6.1, RBC 2.83 L, Hgb 7.4 L, Hct 24.5 L, MCV 86.6, MCH 26.1 L , MCHC 30.2 L, RDW Std Deviation 49.2 H, RDW Coeff of Varun 15.6 H, Plt Count 243, MPV 11.0, Neut % (Auto) Not Reportable, Absolute Neuts (auto) 4.8, Absolute Lymphs (auto) 0.73 L, Total Counted 100, Neutrophils % (Manual) 63, Band Neutrophils % 17 H, Lymphocytes % (Manual) 12 L, Monocytes % (Manual) 2, Eosinophils % (Manual) 1, Metamyelocytes % 4 H, Myelocytes % 1 H, Diff Path Review May foll, Toxic Granulation RARE, Platelet Estimate ADEQUATE, Polychromasia RARE 08/09/19 04:35: Sodium 137, Potassium 3.3 L, Chloride 99, Carbon Dioxide 31.0, Anion Gap 7, BUN 9, Creatinine 0.74, Estim Creat Clear Calc 96.97, Est GFR (MDRD) Af Amer 125, Est GFR (MDRD) Non-Af 103, BUN/Creatinine Ratio 12.2, Glucose 110 H, Calcium 8.1 L, Magnesium 2.1 08/09/19 06:41: POC Glucose 129 H 08/09/19 10:00: Hgb 7.2 L, Hct 23.4 L 08/09/19 11:41: POC Glucose 97 Current Medications Acetaminophen (Tylenol) 650 mg PO Q6H PRN PRN PRN Reason: Pain Score 1-10/Temp > 100.7 F Last Admin: 08/08/19 22:21 Dose: 650 mg Documented by: Dextrose (D50w Syringe) 0 gm IV X1 PRN; Protocol PRN Reason: Hypoglycemia Diltiazem HCl (Cardizem Cd) 180 mg PO DAILY [facility] Last Admin: 08/09/19 09:35 Dose: 180 mg Documented by: Ferrous Sulfate (Ferrous Sulfate) 325 mg PO 1200,1700 [facility] Last Admin: 08/09/19 12:38 Dose: 325 mg Documented by: Glucagon () 1 mg IM .X1 PRN PRN Reason: Hypoglycemia Hydromorphone HCl (Dilaudid Inj) 0.5 - 1 mg IV Q2H PRN PRN PRN Reason: Pain Score 6-10/10 Last Admin: 08/09/19 11:53 Dose: 1 mg Documented by: Sodium Chloride () 250 mls @ 15 mls/hr IV .[id number] PRN PRN Reason: Saline Flush Last Infusion: 08/08/19 15:05 Dose: 0 mls/hr Documented by: Sodium Chloride () 250 mls @ 15 mls/hr IV .[id number] PRN PRN Reason: Additional IVPB Infusion Pantoprazole Sodium 40 mg/ (Sodium Chloride) 110 mls @ 330 mls/hr IV Q12 [facility] Last Infusion: 08/09/19 11:43 Dose: Infused Documented by: Piperacillin Sod/Tazobactam (Sod 3.375 gm/ Sodium Chloride) 50 mls @ 12.5 mls/hr IV Q8 [facility] Last Admin: 08/09/19 13:52 Dose: 12.5 mls/hr Documented by: Insulin Human Lispro (Humalog Kwikpen (Bkc)) 0 unit SC ACHS [facility]; Protocol Last Admin: 08/09/19 11:54 Dose: Not Given Documented by: Metoprolol Tartrate (Lopressor (Beta Jaja)) 5 mg IV Q6 PRN PRN Reason: HR >110 Last Admin: 07/31/19 16:06 Dose: 5 mg Documented by: Nutritional Formula (Lactose Free) (Ensure Clear) 120 ml PO TIDCM BORIS Last Admin: 08/09/19 11:54 Dose: 120 ml Documented by: Ondansetron HCl (Zofran) 4 mg IV Q8H PRN PRN PRN Reason: NAUSEA/VOMITING Last Admin: 08/08/19 03:42 Dose: 4 mg Documented by: Promethazine HCl (Phenergan) 12.5 mg IV Q6H PRN PRN PRN Reason: NAUSEA/VOMITING Last Admin: 07/31/19 10:35 Dose: 12.5 mg Documented by: Sodium Chloride () 10 - 40 ml IV UD PRN PRN Reason: SALINE FLUSH Last Admin: 08/09/19 13:54 Dose: 10 ml Documented by: Zolpidem Tartrate (Ambien (Generic)) 5 mg PO QHS PRN PRN PRN Reason: INSOMNIA Last Admin: 07/31/19 00:51 Dose: 5 mg Documented by: Medical Necessity - Tobacco Use Smoking Status: Never smoker Tobacco Use: Non-smoker Assessment/Plan All Active Problems (Last Updated 07/30/19 @ 15:[address] Magdy Conn MD) Acute on chronic pancreatitis (Acute) New onset A. fib with RVR (Acute) 1. Acute on chronic pancreatitis * pain has resolved. * tolerating oral diet * likely to triglyceridemia, and she will need close follow up with her PCP and gasket supervisor for better control of her triglycerides. * IV zosyn dc'd * 2. Severe hypertriglyceridemia * Triglyceride level was 1577 on admission. * on fenofibrates and niacin * will need follow up with PCP and gasket supervisor for more intensive treatment * 3. Generalised edema * resolved 4. Afib with RVR * now in sinus rhythm * cardiology on board; on PO cardizem and IV metoprolol prn * 2D echo showed EF of 65%, with no other significant findings. * 5. Hypokalemia: * Potassium is 3.3 today.will replace. * Patient says she cannot tolerate oral iron, either as solution or pill. Patient counseled that she has been hypokalemic since admission, and is at risk of hypokalemia on outpatient basis if she doesnt take oral iron supplements 6. Hypomagnesemia: resolved 7. Anemia: * Hb is down to 7.2 today * fecal occult blood is negative. * is a normocytic, hypochromic anemia * patient started having her period yesterday, and I think that is the cause of her anemia * iron panel showed iron level of 20, with low TIBC of 193 and iron saturation of 10.4, with ferritin level of 825. It does appear she has anemia of chronic disease adn a functional iron deficiency anemia as well. * will transfuse 1 unit of PRBCs, and continue with IV venofer. To be dc'd home with oral iron supplements tomorrow * * 8. Type 2 diabetes mellitus: * A1C is 7. * ISS. Accuchecks ACHS * 9.Hypertension: on cardizem 10.Depression: on sertraline. DVT prophylaxis:. On SCds Inpatient E&M: [id number] [facility] L2
[2019-08-09 16:40] LABS: Bedside Glucose 91 mg/dL (70-110)
--- NOTE | 2019-08-09 18:15 | NURSING ---
This RN will be taking over pt care at this time. Report received from Higinio Hernandez RN.
[2019-08-09] MEDS: Acetaminophen 325 MG Tablet 650 MG PO (20:15)
[2019-08-09 22:06] LABS: Bedside Glucose 134 mg/dL (70-110)
[2019-08-10] MEDS: HYDROmorphone 1 MG/ML Syringe IV (01:21)
[2019-08-10] MEDS: 0.9% Saline Lock 10 ML Syringe IV ×3 (01:23→09:14)
[2019-08-10 01:25] VITALS: BP 126/76; PULSE 72; RESP 16; TEMP 36.9; O2SAT 98
[2019-08-10 03:00] VITALS: PULSE 64
[2019-08-10 06:05] LABS: Hematocrit 25.2 % (37-47); Hemoglobin 7.8 g/dL (12.0-15.0); Mean Corpuscular Hgb 26.6 pg (27.0-32.0); Mean Platelet Vol. 10.5 fl (6.2-12.0); POSITIVE COUNT YES; POSITIVE MORPHOLOGY YES; Platelet Count 270 K/mm3 (150-450); RBC Distribution Width CV 15.6 % (11.6-14.6); Red Blood Count 2.93 M/mm3 (4.2-5.4)
[2019-08-10 06:07] LABS: Differential Indicated MANUAL DIFF
[2019-08-10 06:15] VITALS: BP 116/66; PULSE 77; RESP 16; TEMP 37.1; O2SAT 97
[2019-08-10 06:23] LABS: Lymphocyte 15 % (19-41); Monocyte 3 % (0-10); Neutrophil-Band 3 % (0-5); Neutrophil-Segmented 78 % (47-70); Total Cells Counted 100 (MANUAL DIFF)
[2019-08-10 06:24] LABS: Absolute Lymphocyte Count 0.75 X10^3/uL (0.83-4.51); Absolute Neutrophil Count 4.1 X10^3/uL (2.0-7.7); Atypical Lymphocyte 1+ %; Eosinophil 1 % (0-5); Lymphocyte # 0.75 X10^3/ul (4.0); Monocyte# 0.15 X10^3/uL; Neutrophil # 4.05 X10^3/uL (2.7-7.7); Stomatocyte RARE
[2019-08-10 06:28] LABS: Anion Gap 5 (5-15); BUN 8 mg/dL (7-18); BUN/Creat Ratio 12.3 RATIO (10-20); Calcium,Total 8.4 mg/dL (8.5-10.1); Chloride 107 mmol/L (98-107); Creatinine, Serum 0.65 mg/dL (0.55-1.02); EST Glomerular Filtration Rate 119 mL/min (>60); Est Glom Filt Rate - Afr Amer 144 mL/min (>60); Glucose 126 mg/dL (74-106); Potassium 3.6 mmol/L (3.5-5.1); Sodium Level 141 mmol/L (136-145)
[2019-08-10 07:00] VITALS: PULSE 77
[2019-08-10 07:05] LABS: Bedside Glucose 117 mg/dL (70-110)
[2019-08-10 09:05] VITALS: BP 126/74; PULSE 70; RESP 18; TEMP 36.3; O2SAT 96
[2019-08-10] MEDS: dilTIAZem CD 180 MG Capsule PO (09:12)
--- NOTE | 2019-08-10 09:49 | DCINST_ITS ---
- Discharge Diagnoses Current Active Problems: Current Active and Chronic Problems (Last Updated 07/30/19 @ 15:[address] Magdy Conn MD) Type 2 diabetes mellitus (Chronic) Hyperlipidemia (Chronic) Hypertriglyceridemia (Chronic) New onset A. fib with RVR (Acute) You will use the following diet at home:: Calorie/Carbohydrate Controlled (specify 1200, 1400, etc) - 1800 calories Your food should be the consistency of: Regular Your liquids should be the consistency of: Regular/Thin Discharge Activity: Return to Normal Activity Weight Bearing Status: Weight bearing as tolerated Call your doctor if you observe: Fever of 101 or Higher, Shortness of breath, Dizziness, Increased palpitations (irregular heartbeat), Uncontrolled pain Instructions: Lifestyle Changes to Control Cholesterol, Medication for Cholesterol Control, Understanding Type 2 Diabetes, ED Pancreatitis, Anemia, ED Anemia Iron Deficiency Allergies/Adverse Reactions: Allergies Gadolinium-MRI Contrast Medium [DYE] Allergy (Severe, Verified 07/30/19 11:34) KIDNEY FAILURE kidney failure Medications to take at Discharge sertraline 100 mg tablet 100 mg PO QHS 01/06/19 Omeprazole 40 mg PO QHS 06/22/19 proMETHazine tablet [Phenergan tablet] 25 mg PO Q6H PRN PRN #12 tab 06/22/19 Fenofibrate [Tricor] 145 mg PO QHS 07/29/19 Diltiazem CD [Cardizem CD] 180 mg PO DAILY #30 cap 08/10/19 Ferrous Sulfate 325 mg PO 1200,1700 #60 tab 08/10/19 metFORMIN HCl [Glucophage] 500 mg PO BIDCM #60 tab 08/10/19 The following prescriptions were given: Diltiazem CD [Cardizem CD] 180 mg PO DAILY #30 cap Transmission Status: Received by [id number] Ferrous Sulfate 325 mg PO 1200,1700 #60 tab Transmission Status: Received by [id number] metFORMIN HCl [Glucophage] 500 mg PO BIDCM #60 tab Transmission Status: Pending to [id number] Primary Care Physician: Bryant Cardona MD [Primary Care Provider] - Please follow up with your Primary Care Physician in: 1-2 weeks Test Results: Test results from this visit will be discussed in further detail at your follow- up appointment, if applicable. Please Follow Up With: Gerry Lawrence MD When: 1-2 weeks Please Follow Up With: Jimmie Cortes MD When: 1-2 weeks Proposed Discharge Date: 08/10/19
[2019-08-10 09:56] VITALS: BP 126/74; PULSE 70; RESP 18; TEMP 36.3; O2SAT 96
--- NOTE | 2019-08-10 09:56 | PCM.DC.SUM ---
Discharge Date and Diagnosis Date of Admission: 07/30/19 Date of Discharge: 08/10/19 - Primary Discharge Diagnosis Acute Problems: Active Problems (Last Updated 07/30/19 @ 15:[address] Magdy Conn MD) New onset A. fib with RVR (Acute)] acute pancreatitis acute on chronic anemia hypokalemia hypomagnesemia acute renal failure - Secondary Discharge Diagnosis Chronic Problems: Chronic Problems (Last Updated 07/30/19 @ 15:[address] Magdy Conn MD) History of severe pre-eclampsia (Chronic) nl baseline labs History of pancreatitis (Chronic) monitor PRN Hypertension (Chronic) Type 2 diabetes mellitus (Chronic) Hyperlipidemia (Chronic) Hypertriglyceridemia (Chronic) Depression (Chronic) zoloft, encourage counseling. Hospital Course and Treatment Imaging Results: Diagnostic Data Lung Scan-VQ NM 07/30/19 19:39 IMPRESSION: 1. NORMAL 99m Tc MAA pulmonary perfusion imaging examination, according to PIOPED II interpretive criteria. (Sotsman et al, Radiology 246: 941, 2008 Sopablo et al, J Nucl Med 49: 1741, 2008). 2. Central clumping of the aerosol may be secondary to obstructive airway mechanics and or clinical tachypnea. Electronically Signed: Dequan Pérez DO at 14:27 EDT Tel , Service support , Abdomen/Pelvis CT 08/01/19 10:15 IMPRESSION: Hepatomegaly with diffuse fatty infiltration. Diffuse enlargement of the pancreas with findings in keeping with acute pancreatitis with infiltration of the fat in the omentum as described. Ascites. Bibasilar infiltrates more prominent on the left side with the small left pleural effusion. Electronically Signed: Popeye Nichols, at 11:12 EDT , Service support , Renal Ultrasound 08/01/19 10:46 IMPRESSION: Normal ultrasound of the kidneys. Bladder wall thickening. Splenomegaly. Electronically Signed: Popeye Nichols, at 12:30 EDT , Service support , Chest X-Ray 08/03/19 08:46 IMPRESSION: Bilateral basilar infiltrate/atelectasis. Electronically Signed: Bulmaro Dumas, at 17:38 EDT Tel [phone], Service support , cardiology- Dr Lawrence [facility] surgery'- Dr Moser nephrology- Dr Reardon Operations: None Procedures: 2-D Echocardiogram Summary of Care Provided: The patient is a 24 year old F with a past medical history as outlined. She was admitted through the ED on 07/30/2019 with a complaint of palpitations and shortness of breath. Symptoms started on the morning of admission she said his heart beat sounded irregular. She had assisted dizziness and nausea. She also had mild chest pain which she states echo previously palpitations. In the ED he was found to be in A. fib with RVR with heart rate of 157. Blood pressure was stable and she was saturating 97% on room air. Labs were significant for glucose of 182. Initial lipase was unremarkable as well as LFTs. EKG showed A. fib with RVR with heart rate of 157. Initial troponin was 0.15 and TSH was 3.99. Serum test was neative, and CXR showed no acute infiltrate or consolidation. She was admitted and managed for new onset Afib with RVR. She was given a bolus of IV cardizem x 2, and started on Cardizem drip. 2D echo was ordered and she was started on therapeutic Lovenox. Cardiology was consulted. She subsequently developed upper abdominal pain and repeat lipase was elevated so she was managed for acute on chronic pancreatitis. Lipase was 7926. LFTs were unremarkable. Triglycerides were also markedly elevated. She was kept n.p.o. and hydrated aggressively with IV fluids as well as given IV Dilaudid for pain. General surgery was consulted. Patient was transitioned to p.o. Cardizem and IV Cardizem drip was stopped. Lovenox was also discontinued. Repeat troponins were negative. 2D echo done showed EF of 65% and no other abnormality seen. Stay was also further complicated by acute renal failure which was thought to be due to dehydration and pancreatitis. Creatinine peaked at 3.07. He was continuously hydrated with IV fluids . She also developed hypocalcemia which resolved with IV calcium administration. Patient has been gradually improved. Acute on chronic pancreatitis was thought to be due to elevated triglyceride levels as her triglycerides were markedly elevated in the 1700s. She was on ezetimibe for it, but Triglycerides were still markedly elevated, though she said she as compliant with her meds. patient also stated that she was got pancreatitis after every delivery. Elevated triglycerides can be caused by which may have been the case for her. Patient also developed a fever and was started on IV Zosyn. Opiate screen done was negative and blood cultures were negative. Urine culture mixed gram-positive organisms. Abdominal pain gradually improved and patient was able to tolerate clear liquid diet which was advanced gradually to a normal diet subsequently. Creatinine also trended down to normal. Of note, patient stay was also further complicated by acute on chronic anemia. Her hemoglobin was 15 on admission and gradually trended down to a tab of 7.2. Patient was also having her monthly period whilst in the hospital and mentioned that she usually had very heavy periods. Stool for occult blood done was negative. Iron panel done showed elevated ferritin but showed low iron of 20, with TIBC of 193 and iron saturation of 10.4. It did appear that patient had an anemia of chronic disease and functional iron deficiency anemia picture. Patient was transfused one unit of PRBC, and also started on oral iron supplements. Of note, patient's hospital course was also complicated by hypokalemia and hypomagnesemia which resolved with aggressive correction. Patient however refused to take oral potassium supplementation because she said she could not tolerate and so on discharge could not be given any oral potassium supplementation. She remained stable and was discharged home on 08/10/2019. She was discharged with a prescription for p.o. iron supplements to take twice daily. She was also discharged with a script for PO cardizem 180mg daily. 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 Patient seen and examined prior to discharge. She had no complaints and felt well. Review of systems was otherwise negative. Labs and vitals reviewed. Home meds reviewed and reconciled. O/E: Vital Signs Temp Pulse Resp BP Pulse Ox 97.3 F L 70 18 126/74 H 96 08/10/19 09:56 08/10/19 09:56 08/10/19 09:56 08/10/19 09:56 08/10/19 09:56 [] General: Alert, Oriented x3, Cooperative, HEENT: Atraumatic, PERRLA, EOMI, Normocephalic Oral: Moist Mucosa Neck: Supple, No JVD, Negative Carotid Bruits Lungs: Clear to auscultation, Normal air movement, No rhonchi, No wheeze, No rales Cardiovascular: Regular rate, Regular Rhythm, Normal S1, Normal S2, No murmurs Abdomen: Bowel Sounds Present, Soft, - - nontender, no organomegaly, obese Extremities: No clubbing, No cyanosis, No edema, Capillary Refill Less than 3 Seconds Skin: No rashes, No breakdown, looks edematous Musculoskeletal: No Tenderness to Palpation of Joints or Extremities Lymphatic: No Cervical, Supraclavicular, or Inguinal Adenopathy Neurological: Cranial nerves II-XII grossly intact, Neuro grossly intact, Motor Exam 5/5 strength throughout Psych/Mental Status: - - Alert and oriented to time, place, person, mood and affect Plan as above. For discharge home today. Of note, patient also said she was diabetic during admission and her A1c checked was 7. On discharge she was therefore started on metformin 500 mg twice daily and is to follow-up with her primary care doctor for adjustment of dose as needed. - Physical Exam Vitals/I&O's: Vital Signs Temp Pulse Resp BP Pulse Ox 97.3 F L 70 18 126/74 H 96 08/10/19 09:05 08/10/19 09:05 08/10/19 09:05 08/10/19 09:05 08/10/19 09:05 Oxygen Flow Rate (L/min) 2 Oxygen Delivery Method Room Air Weight: 246 lb 11.156 oz Body Mass Index (BMI) 47.5 Finger Stick Blood Glucose 105 Intake and Output for Last 24 Hours 08/08/19 08/09/19 08/10/19 23:59 23:59 23:59 Intake Total 2064.79 / 2064.79 2552.92 / 2552.92 590 / 590 Balance 2064.79 / 2064.79 2552.92 / 2552.92 590 / 590 Microbiology Past 72 Hours 08/03/19 09:00 Blood Culture (Wb) - Anticubital Right Blood Culture - Final No growth in 5 days. 08/03/19 09:05 Blood Culture (Wb) - Line Draw Blood Culture - Final No growth in 5 days. Laboratory Results 08/08/19 06:20: Crossmatch See Detail 08/09/19 10:00: Hgb 7.2 L, Hct 23.4 L 08/09/19 11:41: POC Glucose 97 08/09/19 16:36: POC Glucose 91 08/09/19 21:55: POC Glucose 134 H 08/10/19 05:56: WBC 5.0, RBC 2.93 L, Hgb 7.8 L, Hct 25.2 L, MCV 86.0, MCH 26.6 L, MCHC 31.0 L, RDW Std Deviation 48.0 H, RDW Coeff of Varun 15.6 H, Plt Count 270, MPV 10.5, Neut % (Auto) Not Reportable, Absolute Neuts (auto) 4.1, Absolute Lymphs (auto) 0.75 L, Total Counted 100, Neutrophils % (Manual) 78 H, Band Neutrophils % 3, Lymphocytes % (Manual) 15 L, Monocytes % (Manual) 3, Eosinophils % (Manual) 1, Diff Path Review May foll, Atypical Lymphocytes 1+, Stomatocytes RARE 08/10/19 05:56: Sodium 141, Potassium 3.6, Chloride 107, Carbon Dioxide 29.0, Anion Gap 5, BUN 8, Creatinine 0.65, Estim Creat Clear Calc 110.40, Est GFR (MDRD) Af Amer 144, Est GFR (MDRD) Non-Af 119, BUN/Creatinine Ratio 12.3, Glucose 126 H, Calcium 8.4 L 08/10/19 06:46: POC Glucose 117 H Current Medications Acetaminophen (Tylenol) 650 mg PO Q6H PRN PRN PRN Reason: Pain Score 1-10/Temp > 100.7 F Last Admin: 08/09/19 20:15 Dose: 650 mg Documented by: Dextrose (D50w Syringe) 0 gm IV X1 PRN; Protocol PRN Reason: Hypoglycemia Diltiazem HCl (Cardizem Cd) 180 mg PO DAILY [facility] Last Admin: 08/10/19 09:12 Dose: 180 mg Documented by: Ferrous Sulfate (Ferrous Sulfate) 325 mg PO 1200,1700 [facility] Last Admin: 08/09/19 17:34 Dose: 325 mg Documented by: Glucagon () 1 mg IM .X1 PRN PRN Reason: Hypoglycemia Hydromorphone HCl (Dilaudid Inj) 0.5 - 1 mg IV Q2H PRN PRN PRN Reason: Pain Score 6-10/10 Last Admin: 08/10/19 01:21 Dose: 1 mg Documented by: Sodium Chloride () 250 mls @ 15 mls/hr IV .[id number] PRN PRN Reason: Saline Flush Last Infusion: 08/08/19 15:05 Dose: 0 mls/hr Documented by: Sodium Chloride () 250 mls @ 15 mls/hr IV .[id number] PRN PRN Reason: Additional IVPB Infusion Pantoprazole Sodium 40 mg/ (Sodium Chloride) 110 mls @ 330 mls/hr IV Q12 [facility] Last Infusion: 08/10/19 09:40 Dose: Infused Documented by: Insulin Human Lispro (Humalog Kwikpen (Bkc)) 0 unit SC [facility]; Protocol Last Admin: 08/10/19 06:47 Dose: Not Given Documented by: Metoprolol Tartrate (Lopressor (Beta Jaja)) 5 mg IV Q6 PRN PRN Reason: HR >110 Last Admin: 07/31/19 16:06 Dose: 5 mg Documented by: Nutritional Formula (Lactose Free) (Ensure Clear) 120 ml PO TIDCM [facility] Last Admin: 08/10/19 08:05 Dose: Not Given Documented by: Ondansetron HCl (Zofran) 4 mg IV Q8H PRN PRN PRN Reason: NAUSEA/VOMITING Last Admin: 08/08/19 03:42 Dose: 4 mg Documented by: Promethazine HCl (Phenergan) 12.5 mg IV Q6H PRN PRN PRN Reason: NAUSEA/VOMITING Last Admin: 07/31/19 10:35 Dose: 12.5 mg Documented by: Sodium Chloride () 10 - 40 ml IV UD PRN PRN Reason: SALINE FLUSH Last Admin: 08/10/19 09:14 Dose: 10 ml Documented by: Zolpidem Tartrate (Ambien (Generic)) 5 mg PO QHS PRN PRN PRN Reason: INSOMNIA Last Admin: 07/31/19 00:51 Dose: 5 mg Documented by: Discharge Diet: 1800 Calorie Control Diet Discharge Activity: Return to Normal Activity Weight Bearing Status: Weight bearing as tolerated Call your doctor if you observe: Fever of 101 or Higher, Shortness of breath, Dizziness, Increased palpitations (irregular heartbeat), Uncontrolled pain Home Medications: Medications to take at Discharge sertraline 100 mg tablet 100 mg PO QHS 01/06/19 Omeprazole 40 mg PO QHS 06/22/19 proMETHazine tablet [Phenergan tablet] 25 mg PO Q6H PRN PRN #12 tab 06/22/19 Fenofibrate [Tricor] 145 mg PO QHS 07/29/19 Diltiazem CD [Cardizem CD] 180 mg PO DAILY #30 cap 08/10/19 Ferrous Sulfate 325 mg PO 1200,1700 #60 tab 08/10/19 metFORMIN HCl [Glucophage] 500 mg PO BIDCM #60 tab 08/10/19 Following Prescrptions Were Given to Patient: Diltiazem CD [Cardizem CD] 180 mg PO DAILY #30 cap Transmission Status: Received by [id number] Ferrous Sulfate 325 mg PO 1200,1700 #60 tab Transmission Status: Received by [id number] metFORMIN HCl [Glucophage] 500 mg PO BIDCM #60 tab Transmission Status: Received by [facility] Primary Care Physician: Bryant Cardona MD [Primary Care Provider] - Please follow up with your Primary Care Physician in: 1-2 weeks Please Follow Up With: Gerry Lawrence MD When: 1-2 weeks Please Follow Up With: Britany Urena MD Please Follow Up With: Jimmie Cortes MD When: 1-2 weeks Please Follow Up With: Bryant Cardona MD Patient Instructions: Anemia, Lifestyle Changes to Control Cholesterol, Medication for Cholesterol Control, Understanding Type 2 Diabetes, ED Anemia Iron Deficiency, ED Pancreatitis Disposition: Home Minutes spent on discharge:: 45 Patient Condition:: Stable Medical Necessity - Tobacco Use Smoking Status: Never smoker Tobacco Use: Non-smoker Meaningful Use Info Meaningful Use Diagnoses (Choose all that apply): None applicable Inpatient E&M: 44717 Disch Hosp
[2019-08-12 11:47] LABS: Pathologist Review Reviewed
[2019-08-12 11:49] LABS: Pathologist Review Reviewed
--- NOTE | 2019-08-12 13:52 | CASEMGMT ---
MONICA CM DC PHONE CALL DC DATE: 08.10.2019 DC DISPOSITION: Home DC DIAGNOSIS: Type 2 DM LACE/STRATA: 03/07 F/U APPTS MADE PRIOR TO DC: no PRESCRIPTIONS ACQUIRED BY PT: yes Intro role of CM to patient via phone. Pt states she is doing well, no questions re: medications, instructions or f/u. No care improvement suggestions given. Cooper SANTOS RN ACM
== END 2019-08-10 13:13 | disposition home or self-care (01) | DRG 201 ==
LOC: ED 13:17 → PCU 07-31 06:15
PROVIDERS: Hospitalist; Internal Medicine; Internal Medicine Cardiovascular Disease; Admitting Provider Hospitalist; Emergency Provider Emergency Medicine; PCP Family Medicine; Visit Provider Student in an Organized Health Care Education/Training Program
DX: I48.0 Paroxysmal atrial fibrillation (principal); K86.1 Other chronic pancreatitis; K85.90 Acute pancreatitis without necrosis or infection, unspecified; N17.9 Acute kidney failure, unspecified; E83.51 Hypocalcemia; E86.0 Dehydration; E83.42 Hypomagnesemia; E87.2 Acidosis; E87.6 Hypokalemia; E87.70 Fluid overload, unspecified; R50.9 Fever, unspecified; R33.9 Retention of urine, unspecified; D63.8 Anemia in other chronic diseases classified elsewhere; D50.9 Iron deficiency anemia, unspecified; E11.9 Type 2 diabetes mellitus without complications; I10 Essential (primary) hypertension; E78.1 Pure hyperglyceridemia; F32.9 Major depressive disorder, single episode, unspecified; E78.5 Hyperlipidemia, unspecified; Z79.899 Other long term (current) drug therapy; E66.01 Morbid (severe) obesity due to excess calories; Z68.42 Body mass index [BMI] 45.0-49.9, adult
CPT/HCPCS: 36415; 36569; 71045; 71046; 74176; 76770; 78582; 80047; 80048; 80053; 80061; 81001; 82274; 82728; 82962; 83036; 83540; 83550; 83690; 83735; 84132; 84436; 84439; 84443; 84481; 84484; 84703; 85014; 85018; 85025; 85379; 85652; 86140; 86850; 86900; 86901; 86920; 87040; 87086; 87088; 87635; 93005; 93306; 96374; 96375; 96376; 97802; 97803; 99285; A9540; A9567; G2023; J7030; J7040; J7050; P9016; Q9957; A4216; C8929; J0610; J1940; J2405; U0002

== ENCOUNTER 2019-08-28 14:58 | Emergency (ER) | payer MEDICAID, SELFPAY ==
[2019-08-18 14:01] VITALS: BMI 38.9
[2019-08-28 15:00] VITALS: BP 132/81; PULSE 65; RESP 16; TEMP 36.3; O2SAT 97; BMI 38.9
--- NOTE | 2019-08-28 15:25 | ED.VIS.GEN ---
History of Present Illness Chief Complaint: Abd Pain Informant: Patient Onset: Yesterday Context: Sudden Onset Timing: Continuous Quality: Pain Location: A surgical that is 5 cm radius from the umbilicus Current Severity: Mild Maximum Severity: Moderate Worsened by: Food Relieved by: Nothing, took OxyContin at midnight Associated Symptoms: Nausea and vomiting x3 and loose stool Narrative: Patient is a 24-year-old female with history of pancreatitis due to elevated triglyceride levels. Patient is status post cholecystectomy 2018. She reports periumbilical pain. Pain is made worse with eating. She is vomited 3 times. Had loose stool. She denies hematemesis, melena medication. She denies mucus in her stool. She denies cardiac respiratory symptoms. Last normal menstrual period 3 weeks ago. She is sexually active and is not using for control. She denies dysuria, frequency, urgency or hematuria. She denies history of renal ureterolithiasis. She denies history of bowel obstruction. Prior similar symptoms: Yes Recent Illness/Hospitalization: No - Past Medical History (1) New onset A. fib with RVR Status: Acute (2) Depression Status: Chronic Comment: cassia, encourage counseling. (3) History of pancreatitis Status: Chronic Comment: monitor PRN (4) Hyperlipidemia Status: Chronic (5) Hypertension Status: Chronic (6) Hypertriglyceridemia Status: Chronic (7) Type 2 diabetes mellitus Status: Chronic Past Medical History - Allergies and Home Meds Allergies/Adverse Reactions: Allergies Gadolinium-MRI Contrast Medium [DYE] Allergy (Severe, Verified 08/28/19 14:59) KIDNEY FAILURE kidney failure Primary Care Physician: Bryant Cardona MD [Primary Care Provider] - Prior records reviewed: Yes Surgical History: cholecystectomy, - Lives: With Family Smoking Status: Never smoker Alcohol: None Drugs: None - Family History Maternal Family History: Family History (Last Reviewed 07/30/19 @ 15:[address] Magdy Conn MD) Mother Diabetes Grandmother Diabetes Grandfather Diabetes Father hyperlipidemia Unknown Depression Hypertension Family History: Reports: Diabetes Paternal Family History: Family History (Last Reviewed 07/30/19 @ 15:[address] Magdy Conn MD) Mother Diabetes Grandmother Diabetes Grandfather Diabetes Father hyperlipidemia Unknown Depression Hypertension Family History: Reports: Diabetes Review of Systems General: Denies: Chills, Fever, Sweats Eyes: Denies: Visual changes - bilaterally, Blurred Vision - bilaterally ENT: Denies: Rhinorrhea, Sore throat Cardiovascular: Denies: Chest pain, Palpitations Respiratory: Denies: Dyspnea, Cough, Dyspnea on exertion Gastrointestinal: Reports: Abdominal pain, Nausea, Vomiting, Diarrhea. Denies: Melena, Hematochezia Genitourinary: Denies: Dysuria, Hematuria, Frequency Musculoskeletal: Denies: Myalgias, Arthralgias, Neck pain, Back pain, Swelling, Extremity Pain, -, - Skin: Denies: Rash, Wounds Neurological: Denies: Headache, Weakness, Numbness Hematologic: Denies: Easy bruising, Easy bleeding Physical Exam Vital Signs/Narrative: Vital Signs Temp Pulse Resp BP Pulse Ox 08/28/19 15:00 97.3 F L 65 16 132/81 H 97 Inital Vital Signs reviewed: Yes General: Well nourished, Well developed, Obese, No Acute Distress Head: Normocephalic, Atraumatic Eyes: Perrl, EOMI. Negative for: Pale conjunctiva, Scleral icterus ENT: Moist mucous membranes, No rhinorrhea Neck: Supple, Nontender, No lymphadenopathy, No JVD Cardiovascular: Regular rate, Regular rhythm, No murmurs, Normal S1, Normal S2 Respiratory: No distress, CTA bilaterally, Chest nontender Abdomen: Soft, Nondistended, Tender, Hypoactive bowel sounds. Negative for: Guarding, Rebound tenderness Back: Nontender, Normal Inspection Extremities: Nontender, No edema Skin: Normal color, No rash Neurological: Alert, Oriented x3, Cranial nerves II-XII grossly intact, Normal Strength, Normal Sensation Psychological: Normal affect, Normal Mood Diagnostic/Tx/Re-eval Laboratory Results 08/28/19 08/28/19 08/28/19 15:30 15:30 15:30 WBC 5.0 RBC 4.16 L Hgb 11.5 L Hct 36.2 L MCV 87.0 MCH 27.6 MCHC 31.8 L RDW Std Deviation 56.5 H RDW Coeff of Varun 18.1 H Plt Count 220 MPV 9.9 Immature Gran % (Auto) 0.400 Neut % (Auto) 68.1 Lymph % (Auto) 24.7 [place] % (Auto) 4.2 Eos % (Auto) 2.4 Baso % (Auto) 0.2 Absolute Neuts (auto) 3.4 Absolute Lymphs (auto) 1.24 Nucleated RBC % 0 Sodium 137 Potassium 3.9 Chloride 105 Carbon Dioxide 23.0 Anion Gap 9 BUN 7 Creatinine 0.72 Estim Creat Clear Calc 99.67 Est GFR (MDRD) Af Amer 127 Est GFR (MDRD) Non-Af 105 BUN/Creatinine Ratio 9.7 L Glucose 111 H Calcium 9.0 Total Bilirubin 0.70 AST 28 ALT 46 Alkaline Phosphatase 82 Troponin I < 0.015 Total Protein 8.0 Albumin 3.8 Globulin 4.2 Albumin/Globulin Ratio 0.9 Lipase Serum , Qual NEGATIVE 08/28/19 15:30 WBC RBC Hgb Hct MCV MCH MCHC RDW Std Deviation RDW Coeff of Varun Plt Count MPV Immature Gran % (Auto) Neut % (Auto) Lymph % (Auto) [place] % (Auto) Eos % (Auto) Baso % (Auto) Absolute Neuts (auto) Absolute Lymphs (auto) Nucleated RBC % Sodium Potassium Chloride Carbon Dioxide Anion Gap BUN Creatinine Estim Creat Clear Calc Est GFR (MDRD) Af Amer Est GFR (MDRD) Non-Af BUN/Creatinine Ratio Glucose Calcium Total Bilirubin AST ALT Alkaline Phosphatase Troponin I Total Protein Albumin Globulin Albumin/Globulin Ratio Lipase 254 Serum , Qual Laboratory work-up is normal. Her lipase is normal. Since this is periumbilical and not in the left upper quadrant and work-up is negative and she has no guarding or peritoneal findings patient was informed the cause of her pain is unknown. She was discharged with prescription for Bentyl and Zofran. - Medical Decision Making Differential diagnosis includes abdominal pain unknown etiology, atypical presentation for appendicitis, mesenteric adenitis, exacerbation of chronic pancreatitis, with patient reporting diarrhea doubt small bowel obstruction. Since there is a chance she may be and she is on anticoagulant she was medicated with 4 mg of Zofran and 4 mg of morphine IV push. Appropriate blood work was obtained which included a comprehensive metabolic panel, CBC and lipase. Serum test was obtained as well. Because lipase was admitted on first order she received a second dose of morphine. Since her lipase is normal she was given Bentyl and discharged with prescription for Bentyl. ED Disposition - Plan for ED Patient: Disposition: Home or Assisted Living Diagnosis: Abdominal pain, acute, periumbilical, Nausea and vomiting Instructions: ED Abdominal Pain Unkn Cause Fem Prescriptions: Dicyclomine HCl [Bentyl] 20 mg PO TIDAC #20 cap Transmission Status: Pending to [facility] Ondansetron [Zofran Odt] 4 mg PO Q8H PRN PRN #10 tab PRN Reason: Nausea Transmission Status: Pending to [facility] Referrals: Bryant Cardona MD [Primary Care Provider] - 3-5 Days if not improving
[2019-08-28] MEDS: 0.9% Normal Saline 1,000 ML 1000 ML IV (15:42)
[2019-08-28] MEDS: Ondansetron 4 MG/2 ML Vial IV (15:42)
[2019-08-28] MEDS: Morphine 4 MG/ML Syringe IV ×2 (15:42→20:23)
[2019-08-28 15:43] LABS: Absolute Lymphocyte Count 1.24 X10^3/uL (0.83-4.51); Absolute Neutrophil Count 3.4 X10^3/uL (2.0-7.7); Basophil# 0.01 X10^3/uL; Basophil% 0.2 % (0-1); Eosinophil# 0.12 X10^3/uL; Eosinophils% 2.4 % (0-5); Hematocrit 36.2 % (37-47); Hemoglobin 11.5 g/dL (12.0-15.0); Lymphocyte # 1.24 X10^3/ul (4.0); Lymphocyte % 24.7 % (19-41); Mean Corp Hgb Conc 31.8 g/dL (32-36); Mean Corpuscular Hgb 27.6 pg (27.0-32.0); Mean Platelet Vol. 9.9 fl (6.2-12.0); Monocyte# 0.21 X10^3/uL; Monocyte% 4.2 % (0-10); NRBC Flagged by Analyzer 0 % (0-5); Neutrophil # 3.42 X10^3/uL (2.7-7.7); Neutrophil % 68.1 % (47-70); Platelet Count 220 K/mm3 (150-450); RBC Distribution Width CV 18.1 % (11.6-14.6); RBC Distribution Width SD 56.5 fl (35.1-43.9); Red Blood Count 4.16 M/mm3 (4.2-5.4)
[2019-08-28 16:03] LABS: ALB/GLOB Ratio 0.9 RATIO (0.9-2.4); AST(SGOT) 28 U/L (15-37); Alanine Aminotransfer ALT/SGPT 46 U/L (13-56); Albumin, Serum 3.8 g/dL (3.2-5.0); Alkaline Phosphatase 82 U/L (45-117); Anion Gap 9 (5-15); BUN 7 mg/dL (7-18); BUN/Creat Ratio 9.7 RATIO (10-20); Chloride 105 mmol/L (98-107); Creatinine, Serum 0.72 mg/dL (0.55-1.02); EST Glomerular Filtration Rate 105 mL/min (>60); Est Glom Filt Rate - Afr Amer 127 mL/min (>60); Estimated Creatinine Clearance 99.67 ml/min; Globulin 4.2 g/dL (2.2-4.2); Glucose 111 mg/dL (74-106); Potassium 3.9 mmol/L (3.5-5.1); Sodium Level 137 mmol/L (136-145)
[2019-08-28 16:19] LABS: Internal QC Validated? YES +Cl - CLEAR BKGD; Pregnancy, Serum, hCG Quali. NEGATIVE Negative
[2019-08-28 18:43] VITALS: BP 122/80; RESP 16; O2SAT 95
[2019-08-28 20:24] VITALS: BP 137/79; PULSE 88; RESP 16; O2SAT 99
[2019-08-28 20:59] LABS: Lipase 254 U/L (73-393)
[2019-08-28 21:19] VITALS: BP 124/78; PULSE 80; RESP 16; O2SAT 98
--- NOTE | 2019-08-28 21:20 | ED.RN ---
REVIEWED D/C INSTRUCTIONS, FOLLOW UP CARE, PRESCRIPTIONS, AND S/S THAT WOULD WARRANT A RETURN TO THE ED WITH PT. PT VERBALIZED AN UNDERSTANDING AND DENIES FURTHER QUESTIONS FOR THIS RN. PT SKIN P/W/D, RESP EVEN AND UNLABORED, PT A&O X 3, NO DISTRESS NOTED. PT AMBULATED OUT OF ED, GAIT STEADY.
== END 2019-08-28 21:21 | disposition home or self-care (01) ==
PROVIDERS: Emergency Provider Emergency Medicine; PCP Family Medicine
DX: R10.33 Periumbilical pain (principal); R11.2 Nausea with vomiting, unspecified; I48.91 Unspecified atrial fibrillation; E78.5 Hyperlipidemia, unspecified; I10 Essential (primary) hypertension; E11.9 Type 2 diabetes mellitus without complications; E66.9 Obesity, unspecified
CPT/HCPCS: 80053; 83690; 84484; 84703; 85025; 96361; 96374; 96375; 96376; 99282; J7030; A4216; J2405

== ENCOUNTER → 2019-09-11 13:22 | Outpatient (CLI) | payer MEDICAID, SELFPAY ==
[2019-08-28 15:00] VITALS: BMI 38.9
== END ==
PROVIDERS: PCP Family Medicine; Visit Provider Obstetrics & Gynecology
DX: Z00.00 Encounter for general adult medical examination without abnormal findings (principal)

== ENCOUNTER 2019-09-19 14:24 | Inpatient (IN) | payer MEDICAID, SELFPAY ==
[2019-09-11 14:04] VITALS: BMI 38.9
[2019-09-19 14:25] VITALS: BP 157/83; PULSE 78; RESP 16; TEMP 36.6; O2SAT 98; BMI 38.9
[2019-09-19 15:03] LABS: Absolute Lymphocyte Count 1.28 X10^3/uL (0.83-4.51); Absolute Neutrophil Count 3.3 X10^3/uL (2.0-7.7); Basophil# 0.05 X10^3/uL; Eosinophil# 0.15 X10^3/uL; Hematocrit 38.3 % (37-47); Hemoglobin 13.3 g/dL (12.0-15.0); Lymphocyte # 1.28 X10^3/ul (4.0); Lymphocyte % 25.2 % (19-41); Mean Corp Hgb Conc 34.7 g/dL (32-36); Mean Corpuscular Hgb 30.2 pg (27.0-32.0); Mean Corpuscular Volume 86.8 fL (81-99); Mean Platelet Vol. 10.6 fl (6.2-12.0); Monocyte# 0.32 X10^3/uL; Monocyte% 6.3 % (0-10); NRBC Flagged by Analyzer 0 % (0-5); Neutrophil # 3.25 X10^3/uL (2.7-7.7); Neutrophil % 64.1 % (47-70); Platelet Count 229 K/mm3 (150-450); RBC Distribution Width CV 15.2 % (11.6-14.6); Red Blood Count 4.41 M/mm3 (4.2-5.4); White Blood Count 5.1 K/mm3 (4.4-11.0)
[2019-09-19] MEDS: Morphine 4 MG/ML Syringe IV ×2 (15:06→16:34)
[2019-09-19] MEDS: Ondansetron 4 MG/2 ML Vial IV (15:06)
[2019-09-19] MEDS: 0.9% Normal Saline 1,000 ML 999 ML IV (15:07)
[2019-09-19 15:16] LABS: Red Blood Cells-Urine 0 SEEN /hpf (0-5)
[2019-09-19 15:19] LABS: Color, Urine Yellow (Yellow); Glucose, Dipstick Normal (Normal); Ketone-Dipstick Negative (Negative); Leukocyte Esterase-Dipstick 100 /ul (Negative); Nitrite-Dipstick Negative (Negative); Occult Blood-Urine 10 /ul (Negative); Protein-Dipstick 30 mg/dl (Negative); Specific Gravity, Urine 1.015 (1.002-1.030); Urine Bilirubin Dipstick Negative (Negative); Urine Clarity Clear (Clear); Urine Urobilinogen Normal (Normal)
[2019-09-19 15:21] LABS: Internal QC Validated? YES +Cl - CLEAR BKGD; Pregnancy, Urine Negative Negative
--- NOTE | 2019-09-19 15:21 | ED.VIS.GEN ---
History of Present Illness Chief Complaint: Abd Pain Informant: Patient Narrative: Patient is a 24-year-old female with a past medical history of hypercholesterolemia, chronic pancreatitis who presents to the emergency department for an acute exacerbation of her abdominal pain. This is the fourth day that this has been flared up. The majority of the pain is in the epigastric region. This is similar to her previous exacerbations. She typically gets this once every 1 to 2 months. She does have a history of cholecystectomy. She has been nauseous and has vomited a few times. She has been taking her promethazine and oxycodone at home which has not been giving her significant relief. She currently rates the pain as an 8 out of 10. She has had some very mild diarrhea. Denies any urinary symptoms. No vaginal bleeding or discharge. No radiation of her pain. She denies any chest pain or shortness of breath. No fevers or chills. She denies smoking, drinking or drug use. Past Medical History - Allergies and Home Meds Allergies/Adverse Reactions: Allergies Gadolinium-MRI Contrast Medium [DYE] Allergy (Severe, Verified 09/11/19 14:01) KIDNEY FAILURE kidney failure Past Medical History: - - Chronic pancreatitis, hyperlipidemia Surgical History: cholecystectomy, - Smoking Status: Never smoker Alcohol: None Drugs: None - Family History Maternal Family History: Family History (Last Reviewed 09/12/19 @ 13:[address] Jimmie Cortes MD) Mother Diabetes Grandmother Diabetes Grandfather Diabetes Father hyperlipidemia Unknown Depression Hypertension Family History: Reports: Diabetes Paternal Family History: Family History (Last Reviewed 09/12/19 @ 13:[address] Jimmie Cortes MD) Mother Diabetes Grandmother Diabetes Grandfather Diabetes Father hyperlipidemia Unknown Depression Hypertension Family History: Reports: Diabetes Review of Systems All systems negative except as indicated General: Denies: Chills, Fever, Sweats Eyes: Denies: Visual changes - bilaterally, Diplopia ENT: Denies: Rhinorrhea, Sore throat Cardiovascular: Denies: Chest pain, Palpitations Respiratory: Denies: Dyspnea, Cough, Dyspnea on exertion Gastrointestinal: Reports: Abdominal pain, Nausea, Vomiting, Diarrhea. Denies: Melena, Hematochezia Genitourinary: Denies: Dysuria, Hematuria, Frequency Musculoskeletal: Denies: Back pain, Extremity Pain Skin: Denies: Rash, Wounds Neurological: Denies: Headache, Weakness, Numbness Physical Exam Vital Signs/Narrative: Vital Signs Temp Pulse Resp BP Pulse Ox 09/19/19 14:25 97.8 F 78 16 157/83 H 98 Inital Vital Signs reviewed: Yes General: Well nourished, Well developed, Obese, No Acute Distress Head: Normocephalic, Atraumatic Eyes: Perrl, EOMI ENT: Moist mucous membranes, No rhinorrhea Neck: Supple, Nontender Cardiovascular: Regular rate, Regular rhythm, No murmurs Respiratory: No distress, CTA bilaterally, Chest nontender Abdomen: Soft, Nondistended, Normal bowel sounds, Tender - Epigastric region., - - No pain over McBurney's point.. Negative for: Guarding, Rebound tenderness Back: Nontender, Normal Inspection Extremities: Nontender, No edema Skin: Normal color, No rash Neurological: Alert, Oriented x3, Cranial nerves II-XII grossly intact, Normal Strength, Normal Sensation Psychological: Normal affect, Normal Mood Diagnostic/Tx/Re-eval - Medical Decision Making Patient presents to the emergency department for acute on chronic exacerbation of what she believes her pancreatitis. She is having abdominal pain and nausea. Upon arrival to the emerge department she is in no acute distress. Vital signs within normal limits. We will treat her symptomatically with a dose of morphine and Zofran. Basic lab work being obtained. Patient's lipase did come back very elevated at almost 3000. Despite multiple doses of morphine she still very symptomatic. She received 2 doses of 1 L bolus normal saline. At this time will bring her to the hospital for further evaluation and management of her pain. She otherwise has been stable throughout emerge department stay. She understands and is agreeable with this plan. ED Disposition - Plan for ED Patient: Disposition: Acute Care Hospital [facility] Diagnosis: Acute on chronic pancreatitis, Abdominal pain
[2019-09-19 15:26] LABS: Bacteria RARE /hpf (None Seen); Squamous Epithelial Cells - UA 0-5 SEEN /hpf (5-10); White Blood Cells 0-5 SEEN /hpf (0-5)
[2019-09-19 17:04] LABS: ALB/GLOB Ratio 0.9 RATIO (0.9-2.4); AST(SGOT) 46 U/L (15-37); Alanine Aminotransfer ALT/SGPT 48 U/L (13-56); Albumin, Serum 3.5 g/dL (3.2-5.0); Alkaline Phosphatase 78 U/L (45-117); Anion Gap 5 (5-15); BUN 10 mg/dL (7-18); BUN/Creat Ratio 16.7 RATIO (10-20); Calcium,Total 8.1 mg/dL (8.5-10.1); Chloride 106 mmol/L (98-107); EST Glomerular Filtration Rate 131 mL/min (>60); Est Glom Filt Rate - Afr Amer 158 mL/min (>60); Globulin 3.9 g/dL (2.2-4.2); Glucose 219 mg/dL (74-106); Lipase 2887 U/L (73-393); Potassium 4.2 mmol/L (3.5-5.1); Protein, Total 7.4 g/dL (6.4-8.2); Sodium Level 136 mmol/L (136-145)
--- NOTE | 2019-09-19 17:42 | HP.PCM_ITS ---
Problem List (1) Paroxysmal atrial fibrillation Status: Chronic Comment: Diagnosed during hospitalization in July 2019; (2) Acute on chronic pancreatitis Status: Acute (3) History of severe pre-eclampsia Status: Chronic Comment: nl baseline labs (4) History of pancreatitis Status: Chronic Comment: monitor PRN (5) Hypertension Status: Chronic Qualifiers: Hypertension type: essential hypertension Qualified Code(s): I10 - Esse ntial (primary) hypertension (6) Type 2 diabetes mellitus Status: Chronic (7) Hyperlipidemia Status: Chronic Qualifiers: Hyperlipidemia type: mixed hyperlipidemia Qualified Code(s): E78.2 - Mixed hyperlipidemia (8) Hypertriglyceridemia Status: Chronic (9) Depression Status: Chronic Qualifiers: Comment: zoloft, encourage counseling. History of Present Illness Date of Admission: 09/19/19 Chief Complaint: Abdominal pain, nausea/vomiting. The patient is a 24 year old F who presents to the emergency room due to abdominal pain, nausea and vomiting. Patient reports this began 5 days ago. She states she has been able to keep food and drink down however her abdominal pain has worsened. She has a history of chronic pancreatitis due to hypertriglyceridemia. She has had recurrent admissions for pancreatitis. She denies fever, chills or other associated symptoms. Her other past medical history includes paroxysmal atrial fibrillation, hypertension, hyperlipidemia, type 2 diabetes mellitus, depression. Past Medical History Past Medical History (Chronic Problems): Chronic Problems (Last Reviewed 09/12/19 @ 13:[address] Jimmie Cortes MD) Paroxysmal atrial fibrillation (Chronic) Diagnosed during hospitalization in July 2019; History of severe pre-eclampsia (Chronic) nl baseline labs History of pancreatitis (Chronic) monitor PRN Hypertension (Chronic) Type 2 diabetes mellitus (Chronic) Hyperlipidemia (Chronic) Hypertriglyceridemia (Chronic) Depression (Chronic) zoloft, encourage counseling. Medical History: Medical History (Last Reviewed 09/12/19 @ 13:[address] Jimmie Cortes MD) Depression (Chronic) F32.9 zoloft, encourage counseling. A-fib I48.91 High triglycerides E78.1 Hx of transfusion of whole blood Z92.89 Hyperlipidemia E78.5 Pancreatitis K85.90 HTN (hypertension) I10 Allergies Gadolinium-MRI Contrast Medium [DYE] Allergy (Severe, Verified 09/11/19 14:01) KIDNEY FAILURE kidney failure Home Medications: Ambulatory Orders Medication Instructions Recorded sertraline 100 mg tablet 100 mg PO QHS 01/06/19 Omeprazole 40 mg PO QHS 06/22/19 proMETHazine tablet [Phenergan 25 mg PO Q6H PRN PRN #12 tab 06/22/19 tablet] Fenofibrate [Tricor] 145 mg PO QHS 07/29/19 diltiazem HCl 180 mg 180 mg PO DAILY #30 cap 08/18/19 capsule,extended release 24 hr Dicyclomine HCl [Bentyl] 20 mg PO TIDAC #20 cap 08/28/19 Ondansetron [Zofran Odt] 4 mg PO Q8H PRN PRN #10 tab 08/28/19 Oxycodone HCl 1 tab PO BID 09/19/19 Surgical History: Surgical History (Last Reviewed 09/12/19 @ 13:[address] Jimmie Cortes MD) History of carpal tunnel release of both wrists Z98.890 History of cholecystectomy Z90.49 History of endoscopy Z98.890 Surgical History: cholecystectomy, - - Carpal tunnel surgery bilateral Psychiatric History: Depression [employer]ER History: - - Preeclampsia Lives: Spouse/ Significant Other Smoking Status: Never smoker Alcohol: None Drugs: None - *Family History Maternal Family History: Family History (Last Reviewed 09/12/19 @ 13:[address] Jimmie Cortes MD) Mother Diabetes Grandmother Diabetes Grandfather Diabetes Father hyperlipidemia Unknown Depression Hypertension History Items: Diabetes Paternal Family History: Family History (Last Reviewed 09/12/19 @ 13:[address] Jimmie Cortes MD) Mother Diabetes Grandmother Diabetes Grandfather Diabetes Father hyperlipidemia Unknown Depression Hypertension History Items: Diabetes Review of Systems Constitutional: Denies: Chills, Fever, Weight Change HEENT: Denies: Head Aches, Sinus Congestion, Sinus Drainage Cardiovascular: Denies: Chest Pain, Palpitations Respiratory: Denies: Cough, Shortness of breath at rest, Sputum production Gastrointestinal: Reports: Abdominal Pain, Nausea, Vomiting Genitourinary: Denies: Dysuria Musculoskeletal: Denies: Joint Pain, Joint Tenderness Skin: Denies: Rash, Wounds Neurological: Denies: Numbness, Tingling, Focal weakness Psychiatric: Denies: Anxiety, Depression, Homicidal Ideations, Suicidal Ideations Hematologic/ Lymphatic: Denies: Easy Bruising, Easy Bleeding VTE Information - Inpt Only VTE Present on Admission: No VTE Mechan Device Prophylaxis: None VTE Pharm Prophylaxis ordered?: No - Physical Exam Vitals/I&O's: Vital Signs Temp Pulse Resp BP Pulse Ox 97.8 F 78 16 157/83 H 98 09/19/19 14:25 09/19/19 14:25 09/19/19 14:25 09/19/19 14:25 09/19/19 14:25 Oxygen Delivery Method Room Air Weight: 220 lb Body Mass Index (BMI) 38.9 Finger Stick Blood Glucose 105 Intake and Output for Last 24 Hours 09/17/19 09/18/19 09/19/19 23:59 23:59 23:59 Intake Total 1000 / 1000 Balance 1000 / 1000 General: Alert, Oriented x3, Cooperative HEENT: Atraumatic, PERRLA, EOMI, Normocephalic Neck: Supple, No JVD, Negative Carotid Bruits Lungs: Clear to auscultation, Normal air movement Cardiovascular: Regular rate, No murmurs Abdomen: Bowel Sounds Present, Soft, Non-Distended, Obese, Tender - LUQ Extremities: No clubbing, No cyanosis, No edema, Capillary Refill Less than 3 Seconds Skin: No rashes, No breakdown Musculoskeletal: No Tenderness to Palpation of Joints or Extremities Neurological: Cranial nerves II-XII grossly intact, Neuro grossly intact Psych/Mental Status: Normal Affect, Appropriate Laboratory Results 09/19/19 14:45: WBC 5.1, RBC 4.41, Hgb 13.3, Hct 38.3, MCV 86.8, MCH 30.2, MCHC 34.7, RDW Std Deviation 48.0 H, RDW Coeff of Varun 15.2 H, Plt Count 229, MPV 10.6, Immature Gran % (Auto) 0.400, Neut % (Auto) 64.1, Lymph % (Auto) 25.2, Irion % (Auto) 6.3, Eos % (Auto) 3.0, Baso % (Auto) 1.0, Absolute Neuts (auto) 3.3, Absolute Lymphs (auto) 1.28, Nucleated RBC % 0 09/19/19 14:45: Sodium 136, Potassium 4.2, Chloride 106, Carbon Dioxide 25.0, Anion Gap 5, BUN 10, Creatinine 0.60, Estim Creat Clear Calc 119.60, Est GFR (MDRD) Af Amer 158, Est GFR (MDRD) Non-Af 131, BUN/Creatinine Ratio 16.7, Glucose 219 H, Calcium 8.1 L, Total Bilirubin 0.70, AST 46 H, ALT 48, Alkaline Phosphatase 78, Total Protein 7.4, Albumin 3.5, Globulin 3.9, Albumin/Globulin Ratio 0.9, Lipase 2887 H 09/19/19 15:10: Urine Color Yellow, Urine Clarity Clear, Urine pH 6.0, Ur Specific Normanna 1.015, Urine Protein 30 H, Urine Glucose (UA) Normal, Urine Ke tones Negative, Urine Occult Blood 10 H, Urine Nitrite Negative, Urine Bilirubin Negative, Urine Urobilinogen Normal, Ur Leukocyte Esterase 100 H, Urine RBC 0 SEEN, Urine WBC 0-5 SEEN, Ur Squamous Epith Cells 0-5 SEEN, Urine Bacteria RARE, 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 Jimmie Cortes MD) Acute on chronic pancreatitis (Acute) 1. Acute on chronic pancreatitis, secondary to severe hypertriglyceridemia- lipase 2887. N.p.o. IV fluids. PRN pain regimen. 2. Paroxysmal atrial fibrillation-patient reports this was a single episode during prior admission due to pancreatitis. On Cardizem. 3. Hypertension-mildly elevated on admission, continue Cardizem. 4. Hyperlipidemia/severe hypertriglyceridemia-on fenofibrate. 5. Depression-continue sertraline regimen. 6. Obesity- encouraged diet and lifestyle modifications. DVT prophylaxis- not indicated, low risk. This patient was seen by Jolie Wellington NP-C under the supervision of Dr. Ann.
--- NOTE | 2019-09-19 18:03 | NURSING ---
MED SURG OBS PANCREATITIS
[2019-09-19 19:10] VITALS: BP 126/80; PULSE 73; RESP 18; TEMP 36.3; O2SAT 95
[2019-09-19] MEDS: 0.9% Normal Saline 1,000 ML 150 ML IV (19:11)
[2019-09-19 20:18] VITALS: BMI 39.9
[2019-09-19 20:26] VITALS: BMI 39.9
[2019-09-19 20:38] VITALS: BP 131/81; PULSE 65; RESP 16; TEMP 36.6; O2SAT 98
--- NOTE | 2019-09-19 20:44 | CT_ITS ---
STUDY: CT ABDOMEN AND PELVIS WITHOUT CONTRAST REASON FOR EXAM: Female, 24 years old. Abdominal pain with nausea and vomiting for 5 days. Elevated lipase. History of diabetes, hypertension, hypertriglyceridemia with recurrent pancreatitis. A. fib. RADIATION DOSAGE (If Supplied By Facility): CTDIvol = ( 19.17 ) mGy, DLP = ( 976.76 ) mGycm TECHNIQUE: Transaxial images were obtained from the dome of the diaphragm to the symphysis pubis without oral contrast, and without intravenous contrast. Sagittal and coronal images were reconstructed. Individualized dose optimization techniques were used for this CT. COMPARISON: August 01, 2019. FINDINGS: The visualized lung bases are unremarkable. The visualized portions of the heart are within normal limits. The liver is enlarged but uniform in density. There are surgical clips in the gallbladder fossa consistent with a prior cholecystectomy. There is moderate splenomegaly. The pancreas is enlarged. There is stranding about the body and tail of the pancreas consistent with pancreatitis. There is mild thickening of the left anterior pararenal fascial plane. Normal bilateral adrenal glands. Normal right kidney. Normal left kidney. Normal visualized stomach. Normal small intestine. Normal colon. There is non-visualization of the appendix. Normal abdominal aorta. Normal inferior vena cava. Normal retroperitoneum. Normal urinary bladder. Normal uterus and ovaries. There is no pelvic lymphadenopathy. No free air or free fluid is seen within the peritoneal cavity. Normal abdominal wall. There is no osseous changes. CT/Abdomen/Pelvis without Cont IMPRESSION: 1. Mild pancreatitis involving the pancreatic tail. There is resolution of the marked inflammatory process and this site seen on the previous examination. 2. Hepatosplenomegaly. Electronically Signed: Preet Mandujano DO at 21:49 EDT Tel [phone], Service support ,
[2019-09-19] MEDS: Morphine 2 MG/ML Syringe IV (21:01)
[2019-09-19] MEDS: Sertraline 100 MG Tablet PO (21:02)
[2019-09-19] MEDS: Fenofibrate 145 MG Tablet PO (21:02)
[2019-09-19] MEDS: Pantoprazole Sodium 40 MG Tablet PO (21:02)
[2019-09-19] MEDS: Dicyclomine 10 MG Capsule 20 MG PO (21:03)
[2019-09-19] MEDS: dilTIAZem CD 180 MG Capsule PO (21:03)
[2019-09-19 22:07] LABS: Cholesterol 216 mg/dL (200); High Density Lipoprotein 14 mg/dL; Triglycerides 2508 mg/dL
[2019-09-19 22:15] LABS: Bedside Glucose 114 mg/dL (70-110)
[2019-09-19 23:05] LABS: Hemoglobin A1c 5.7 % (3.8-5.6)
[2019-09-19] MEDS: HYDROmorphone 0.5 MG/0.5 ML SYRINGE IV (23:36)
[2019-09-19] MEDS: 0.9% Saline Lock 10 ML Syringe IV (23:37)
[2019-09-20] VITALS (12 sets, daily range): BP systolic 105–114; BP diastolic 60–75; PULSE 52–80; RESP 16; TEMP 36.3–36.7; O2SAT 95–97
[2019-09-20] MEDS: Ondansetron 4 MG/2 ML Vial IV ×3 (00:38→17:27)
[2019-09-20] MEDS: HYDROmorphone 0.5 MG/0.5 ML SYRINGE IV ×6 (02:40→20:50)
[2019-09-20] MEDS: 0.9% Normal Saline 1,000 ML 150 ML IV ×3 (03:42→15:48)
[2019-09-20] MEDS: Dicyclomine 10 MG Capsule 20 MG PO (06:15)
[2019-09-20] MEDS: Insulin Lispro 100 UNIT/ML INSULN.PEN SC (06:20)
[2019-09-20 06:46] LABS: Bedside Glucose 165 mg/dL (70-110)
[2019-09-20 06:53] LABS: Lipase 2955 U/L (73-393)
--- NOTE | 2019-09-20 07:10 | PN_ITS ---
Patient Problems: Active and Suspected Problems (Last Reviewed 09/12/19 @ 13:[address] Jimmie Cortes MD) Abdominal pain (Acute) Acute on chronic pancreatitis (Acute) Reason for Visit: Acute pancreatitis Subjective: Patient is a 24-year-old history of chronic pancreatitis secondary to hypertriglyceridemia who presented with abdominal pain and assessment of acute pancreatitis made admitted to regular nursing floor for further management Objective: GENERAL: cooperative HEENT: Atraumatic; EYES; Anicteric, Normal Conjunctiva NECK; supple, normal thyroid, RESPIRATORY: Diminished to auscultation CARDIOVASCULAR: Regular S1 S2, GI: soft, normoactive bowel sounds, : No Renal angle tenderness; EXTREMITIES: No edema, no clubbing, MUSCULOSKELETAL: no muscle waisting NEURO: Awake; no lateralizing signs. SKIN: No Rash PSYCH; Flat affect Vitals/I&O's: Vital Signs Temp Pulse Resp BP Pulse Ox 98.0 F 62 16 111/67 96 09/20/19 02:35 09/20/19 04:07 09/20/19 02:35 09/20/19 02:35 09/20/19 02:35 Oxygen Delivery Method Room Air Weight: 102.1 kg Body Mass Index (BMI) 39.9 Finger Stick Blood Glucose 105 Intake and Output for Last 24 Hours 09/18/19 09/19/19 09/20/19 23:59 23:59 23:59 Intake Total 1000 / 1000 1000 / 1000 Balance 1000 / 1000 1000 / 1000 Laboratory Results 09/19/19 14:44: Hemoglobin A1c 5.7 H 09/19/19 14:45: WBC 5.1, RBC 4.41, Hgb 13.3, Hct 38.3, MCV 86.8, MCH 30.2, MCHC 34.7, RDW Std Deviation 48.0 H, RDW Coeff of Varun 15.2 H, Plt Count 229, MPV 10.6, Immature Gran % (Auto) 0.400, Neut % (Auto) 64.1, Lymph % (Auto) 25.2, [place] % (Auto) 6.3, Eos % (Auto) 3.0, Baso % (Auto) 1.0, Absolute Neuts (auto) 3.3, Absolute Lymphs (auto) 1.28, Nucleated RBC % 0 09/19/19 14:45: Sodium 136, Potassium 4.2, Chloride 106, Carbon Dioxide 25.0, Anion Gap 5, BUN 10, Creatinine 0.60, Estim Creat Clear Calc 119.60, Est GFR (MDRD) Af Amer 158, Est GFR (MDRD) Non-Af 131, BUN/Creatinine Ratio 16.7, Glucose 219 H, Calcium 8.1 L, Total Bilirubin 0.70, AST 46 H, ALT 48, Alkaline Phosphatase 78, Total Protein 7.4, Albumin 3.5, Globulin 3.9, Albumin/Globulin Ratio 0.9, Lipase 2887 H 09/19/19 15:10: Urine Color Yellow, Urine Clarity Clear, Urine pH 6.0, Ur Specific Dana 1.015, Urine Protein 30 H, Urine Glucose (UA) Normal, Urine Ketones Negative, Urine Occult Blood 10 H, Urine Nitrite Negative, Urine Bilirubin Negative, Urine Urobilinogen Normal, Ur Leukocyte Esterase 100 H, Urine RBC 0 SEEN, Urine WBC 0-5 SEEN, Ur Squamous Epith Cells 0-5 SEEN, Urine Bacteria RARE, 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, Urine Test Negative 09/19/19 15:10: Cholesterol Cancelled 09/19/19 15:10: Triglycerides 2508 H, Cholesterol 216 H, LDL Cholesterol TNP, VLDL Cholesterol TNP, HDL Cholesterol 14 L 09/19/19 21:53: POC Glucose 114 H 09/20/19 05:20: Lipase 2955 H 09/20/19 06:17: POC Glucose 165 H Current Medications Dextrose (D50w Syringe) 0 gm IV X1 PRN; Protocol PRN Reason: Hypoglycemia Dicyclomine HCl (Bentyl) 20 mg PO TIDAC [facility] Last Admin: 09/20/19 06:15 Dose: 20 mg Documented by: Diltiazem HCl (Cardizem Cd) 180 mg PO DAILY [facility] Last Admin: 09/19/19 21:03 Dose: 180 mg Documented by: Fenofibrate (Tricor) 145 mg PO QHS [facility] Last Admin: 09/19/19 21:02 Dose: 145 mg Documented by: Glucagon () 1 mg IM .X1 PRN PRN Reason: Hypoglycemia Hydromorphone HCl (Dilaudid Inj) 0.5 mg IV Q3H PRN PRN PRN Reason: Pain 6-1010 Last Admin: 09/20/19 06:21 Dose: 0.5 mg Documented by: Sodium Chloride () 1,000 mls @ 150 mls/hr IV .Q6H40M [facility] Last Admin: 09/20/19 03:42 Dose: 150 mls/hr Documented by: Insulin Human Lispro (Humalog Kwikpen (Bkc)) 0 unit SC ACHS [facility]; Protocol Last Admin: 09/20/19 06:20 Dose: 1 unit Documented by: Ondansetron HCl (Zofran) 4 mg IV Q8H PRN PRN PRN Reason: NAUSEA/VOMITING Last Admin: 09/20/19 00:38 Dose: 4 mg Documented by: Pantoprazole Sodium (Protonix) 40 mg PO QHS [facility] Last Admin: 09/19/19 21:02 Dose: 40 mg Documented by: Sertraline HCl (Zoloft) 100 mg PO QHS [facility] Last Admin: 09/19/19 21:02 Dose: 100 mg Documented by: Sodium Chloride () 10 - 40 ml IV UD PRN PRN Reason: SALINE FLUSH Last Admin: 09/19/19 23:37 Dose: 10 ml Documented by: STROKE Vital Signs/Narrative: Vital Signs Pulse 09/20/19 04:07 62 Medical Necessity - Tobacco Use Smoking Status: Never smoker Assessment/Plan All Active Problems (Last Reviewed 09/12/19 @ 13:[address] Jimmie Cortes MD) Abdominal pain (Acute) Acute on chronic pancreatitis (Acute) Patient is a 24-year-old history of chronic pancreatitis secondary to hypertriglyceridemia who presented with abdominal pain and assessment of acute pancreatitis made admitted to regular nursing floor for further management 1. Acute on chronic pancreatitis ?Secondary to hypertriglyceridemia. Admitted to regular nursing floor managed conservatively with bowel rest IV fluids pain medication as well as antinausea medications with serial monitoring of lipase levels 2. Hypertension - Blood pressure controlled, home medications continued with dose adjustment as needed 3. Hypertriglyceridemia ?Patient is on fenofibrate 4. Depression Patient is on SSRI?sertraline 5. Morbid obesity with BMI of 39.9 ?Weight loss advised 6. DVT prophylaxis low risk ?Did encourage ambulation Inpatient E&M: [id number] [facility] Hosp L3
[2019-09-20 10:01] LABS: Bedside Glucose 147 mg/dL (70-110)
--- NOTE | 2019-09-20 10:53 | NURSING ---
spoke with marizol the update given
[2019-09-20 16:25] LABS: Bedside Glucose 112 mg/dL (70-110)
[2019-09-20] MEDS: 0.9% Saline Lock 10 ML Syringe IV ×2 (17:27→20:49)
[2019-09-20] MEDS: Fenofibrate 145 MG Tablet PO (20:51)
[2019-09-20] MEDS: dilTIAZem CD 180 MG Capsule PO (20:51)
[2019-09-20] MEDS: Sertraline 100 MG Tablet PO (20:51)
[2019-09-20] MEDS: Pantoprazole Sodium 40 MG Tablet PO (20:52)
[2019-09-20 21:26] LABS: Bedside Glucose 92 mg/dL (70-110)
[2019-09-21] VITALS (9 sets, daily range): BP systolic 118–130; BP diastolic 67–77; PULSE 48–72; RESP 16–18; TEMP 36.8–37.4; O2SAT 94–100
[2019-09-21] MEDS: 0.9% Saline Lock 10 ML Syringe IV ×7 (02:19→20:40)
[2019-09-21] MEDS: HYDROmorphone 0.5 MG/0.5 ML SYRINGE IV ×5 (02:19→20:40)
[2019-09-21] MEDS: Ondansetron 4 MG/2 ML Vial IV ×3 (03:00→20:40)
[2019-09-21 06:25] LABS: Bedside Glucose 127 mg/dL (70-110)
--- NOTE | 2019-09-21 07:40 | PCM.PN.HOSP ---
Patient Problems: Active and Suspected Problems (Last Reviewed 09/12/19 @ 13:[address] Jimmie Cortes MD) Abdominal pain (Acute) Acute on chronic pancreatitis (Acute) Reason for Visit: acute pancreatitis Subjective: Patient seen complains of nausea, did tolerate clear liquids the day prior plan is to advance diet to regular diet. Patient still has some abdominal discomfort we will plan to keep for 1 additional day. Objective: GENERAL: cooperative HEENT: Atraumatic; EYES; Anicteric, Normal Conjunctiva NECK; supple, normal thyroid, RESPIRATORY: Diminished to auscultation CARDIOVASCULAR: Regular S1 S2, GI: soft, normoactive bowel sounds, : No Renal angle tenderness; EXTREMITIES: No edema, no clubbing, MUSCULOSKELETAL: no muscle waisting NEURO: Awake; no lateralizing signs. SKIN: No Rash PSYCH; Flat affect Vitals/I&O's: Vital Signs Temp Pulse Resp BP Pulse Ox 98.2 F 57 L 17 125/77 H 97 09/21/19 02:35 09/21/19 03:59 09/21/19 02:35 09/21/19 02:35 09/21/19 02:35 Oxygen Delivery Method Room Air Weight: 102.1 kg Body Mass Index (BMI) 39.9 Finger Stick Blood Glucose 105 Intake and Output for Last 24 Hours 09/19/19 09/20/19 09/21/19 23:59 23:59 23:59 Intake Total 1000 / 1000 3147.5 / 3147.5 250 / 250 Output Total 100 / 100 Balance 1000 / 1000 3047.5 / 3047.5 250 / 250 Laboratory Results 09/20/19 09:54: POC Glucose 147 H 09/20/19 16:17: POC Glucose 112 H 09/20/19 20:58: POC Glucose 92 09/21/19 06:16: POC Glucose 127 H Current Medications Dextrose (D50w Syringe) 0 gm IV X1 PRN; Protocol PRN Reason: Hypoglycemia Dicyclomine HCl (Bentyl) 20 mg PO TIDAC [facility] Last Admin: 09/21/19 06:09 Dose: Not Given Documented by: Diltiazem HCl (Cardizem Cd) 180 mg PO DAILY@2200 [facility] Last Admin: 09/20/19 20:51 Dose: 180 mg Documented by: Fenofibrate (Tricor) 145 mg PO QHS [facility] Last Admin: 09/20/19 20:51 Dose: 145 mg Documented by: Glucagon () 1 mg IM .X1 PRN PRN Reason: Hypoglycemia Hydromorphone HCl (Dilaudid Inj) 0.5 mg IV Q3H PRN PRN PRN Reason: Pain 6-10/10 Last Admin: 09/21/19 06:10 Dose: 0.5 mg Documented by: Insulin Human Lispro (Humalog Kwikpen (Bkc)) [address] [facility]; Protocol Last Admin: 09/21/19 06:16 Dose: Not Given Documented by: Ondansetron HCl (Zofran) 4 mg IV Q8H PRN PRN PRN Reason: NAUSEA/VOMITING Last Admin: 09/21/19 03:00 Dose: 4 mg Documented by: Pantoprazole Sodium (Protonix) 40 mg PO QHS [facility] Last Admin: 09/20/19 20:52 Dose: 40 mg Documented by: Promethazine HCl (Phenergan) 12.5 mg IM Q4H PRN PRN PRN Reason: NAUSEA/VOMITING Sertraline HCl (Zoloft) 100 mg PO QHS [facility] Last Admin: 09/20/19 20:51 Dose: 100 mg Documented by: Sodium Chloride () 10 - 40 ml IV UD PRN PRN Reason: SALINE FLUSH Last Admin: 09/21/19 06:10 Dose: 10 ml Documented by: STROKE Vital Signs/Narrative: Vital Signs Pulse 09/21/19 03:59 57 L Medical Necessity - Tobacco Use Smoking Status: Never smoker Assessment/Plan All Active Problems (Last Reviewed 09/12/19 @ 13:[address] Jimmie Cortes MD) Abdominal pain (Acute) Acute on chronic pancreatitis (Acute) Patient is a 24-year-old history of chronic pancreatitis secondary to hypertriglyceridemia who presented with abdominal pain and assessment of acute pancreatitis made admitted to regular nursing floor for further management 1. Acute on chronic pancreatitis ?Secondary to hypertriglyceridemia. Admitted to regular nursing floor managed conservatively with bowel rest IV fluids pain medication as well as antinausea medications with serial monitoring of lipase levels ?09/21/2019:Patient seen complains of nausea, did tolerate clear liquids the day prior plan is to advance diet to regular diet. Patient still has some abdominal discomfort we will plan to keep for 1 additional day. 2. Hypertension - Blood pressure controlled, home medications continued with dose adjustment as needed 3. Hypertriglyceridemia ?Patient is on fenofibrate 4. Depression Patient is on SSRI?sertraline 5. Morbid obesity with BMI of 39.9 ?Weight loss advised 6. DVT prophylaxis low risk ?Did encourage ambulation Inpatient E&M: 08778 [facility] Hosp L2
[2019-09-21 10:04] LABS: Lipase 808 U/L (73-393)
[2019-09-21] MEDS: Dicyclomine 10 MG Capsule 20 MG PO ×2 (11:34→16:57)
[2019-09-21 11:36] LABS: Bedside Glucose 116 mg/dL (70-110)
[2019-09-21 17:01] LABS: Bedside Glucose 127 mg/dL (70-110)
[2019-09-21] MEDS: Sertraline 100 MG Tablet PO (21:44)
[2019-09-21] MEDS: Fenofibrate 145 MG Tablet PO (21:44)
[2019-09-21] MEDS: Pantoprazole Sodium 40 MG Tablet PO (21:44)
[2019-09-21 21:50] LABS: Bedside Glucose 113 mg/dL (70-110)
[2019-09-22] MEDS: HYDROmorphone 0.5 MG/0.5 ML SYRINGE IV ×2 (00:19→04:41)
[2019-09-22] MEDS: 0.9% Saline Lock 10 ML Syringe IV ×2 (00:20→04:41)
[2019-09-22 03:23] VITALS: BP 117/84; PULSE 50; RESP 16; TEMP 36.6; O2SAT 99
[2019-09-22 03:58] VITALS: PULSE 48
[2019-09-22] MEDS: Ondansetron 4 MG/2 ML Vial IV (04:41)
[2019-09-22 06:31] LABS: Lipase 487 U/L (73-393)
[2019-09-22] MEDS: Dicyclomine 10 MG Capsule 20 MG PO ×2 (06:37→12:00)
[2019-09-22 06:46] LABS: Bedside Glucose 122 mg/dL (70-110)
[2019-09-22 09:23] VITALS: BP 111/65; PULSE 63; RESP 16; TEMP 36.5; O2SAT 98
--- NOTE | 2019-09-22 10:10 | CASEMGMT ---
RN ARIANNA Face to Face with patient for initial transition planning/care coordination assessment. RN CM introduced self and role at [facility]. Patient lying in bed, alert and oriented. Patient willing to participate in assessment and is able to answer all questions appropriately. Care providers, pharmacy, and demographics verified. Patient wishes to discharge home, denies need for home health at this time. Patient states she has no further needs or concerns at this time. CM to follow for discharge planning needs that may arise. PCP: Brendan Specialists: [facility]; RO[facility] Cunha Preferred Pharmacy: [facility] Insurance: [facility] community plan Prescription Benefit: yes Living Will/HPOA: none LNOK: Living Arrangements: Patient lives with in mobile home with 5 steps to enter the home. Transportation: self/ DME/HHC: Patient states she has a glucometer at home. Patient denies previous HHC. Disposition Plan: Patient to discharge home with family support and follow-up plans in place. Cheli SANTOS, RN, CM
[2019-09-22 10:12] VITALS: PULSE 57
[2019-09-22 12:05] LABS: Bedside Glucose 118 mg/dL (70-110)
--- NOTE | 2019-09-22 14:21 | DCINST_ITS ---
- Discharge Diagnoses Current Active Problems: Current Active and Chronic Problems (Last Reviewed 09/12/19 @ 13:[address] Jimmie Cortes MD) Abdominal pain (Acute) Acute on chronic pancreatitis (Acute) You will use the following diet at home:: Calorie/Carbohydrate Controlled (specify 1200, 1400, etc) Your food should be the consistency of: Regular Your liquids should be the consistency of: Regular/Thin Discharge Activity: Return to Normal Activity Call your doctor if you observe: Fever of 101 or Higher, Shortness of breath, Dizziness, Fainting spells, Swelling in the ankles, Chest pain, Increased palpitations (irregular heartbeat) Allergies/Adverse Reactions: Allergies Gadolinium-MRI Contrast Medium [DYE] Allergy (Severe, Verified 09/11/19 14:01) KIDNEY FAILURE kidney failure Medications to take at Discharge sertraline 100 mg tablet 100 mg PO QHS 01/06/19 Omeprazole 40 mg PO QHS 06/22/19 proMETHazine tablet [Phenergan tablet] 25 mg PO Q6H PRN PRN #12 tab 06/22/19 Fenofibrate [Tricor] 145 mg PO QHS 07/29/19 diltiazem HCl 180 mg capsule,extended release 24 hr 180 mg PO DAILY #30 cap 08/18/19 Dicyclomine HCl [Bentyl] 20 mg PO TIDAC #20 cap 08/28/19 Ondansetron [Zofran Odt] 4 mg PO Q8H PRN PRN #10 tab 08/28/19 Oxycodone HCl 1 tab PO BID PRN PRN 09/19/19 Primary Care Physician: Bryant Cardona MD [Primary Care Provider] - Please follow up with your Primary Care Physician in: 3-5 days Test Results: Test results from this visit will be discussed in further detail at your follow- up appointment, if applicable. Please Follow Up With: Endocrinology
--- NOTE | 2019-09-22 14:24 | PCM.DC.SUM ---
Discharge Date and Diagnosis - Problem List Patient Problems: Active and Suspected Problems (Last Reviewed 09/12/19 @ 13:[address] Jimmie Cortes MD) Abdominal pain (Acute) Acute on chronic pancreatitis (Acute) Date of Admission: 09/19/19 Date of Discharge: 09/22/19 - Primary Discharge Diagnosis Acute Problems: Active Problems (Last Reviewed 09/12/19 @ 13:[address] Jimmie Cortes MD) Abdominal pain (Acute) Acute on chronic pancreatitis (Acute) - Secondary Discharge Diagnosis Chronic Problems: Chronic Problems (Last Reviewed 09/12/19 @ 13:[address] Jimmie Cortes MD) Paroxysmal atrial fibrillation (Chronic) Diagnosed during hospitalization in July 2019; History of severe pre-eclampsia (Chronic) nl baseline labs History of pancreatitis (Chronic) monitor PRN Hypertension (Chronic) Type 2 diabetes mellitus (Chronic) Hyperlipidemia (Chronic) Hypertriglyceridemia (Chronic) Depression (Chronic) zoloft, encourage counseling. Hospital Course and Treatment Imaging Results: CT Abd/pelvis: IMPRESSION: 1. Mild pancreatitis involving the pancreatic tail. There is resolution of the marked inflammatory process and this site seen on the previous examination. 2. Hepatosplenomegaly. Consults: None Operations: None Procedures: None Summary of Care Provided: Per HPI: The patient is a 24 year old F who presents to the emergency room due to abdominal pain, nausea and vomiting. Patient reports this began 5 days ago. She states she has been able to keep food and drink down however her abdominal pain has worsened. She has a history of chronic pancreatitis due to hypertriglyceridemia. She has had recurrent admissions for pancreatitis. She denies fever, chills or other associated symptoms. Her other past medical history includes paroxysmal atrial fibrillation, hypertension, hyperlipidemia, type 2 diabetes mellitus, depression. Hospital Course: 1. Chronic pancreatitis secondary to hypertriglyceridemia/morbid [id number] female who was recently in the hospital in July with pancreatitis as well as new onset A. fib presents once again with worsening abdominal pain. Her lipase was found to be elevated which did improve during the course of her stay. Her triglycerides were also significantly elevated to 2500. She was feeling better on the day of discharge and she does not have much of an appetite but she was able to hold liquids down. I was able to press on her abdomen without any significant abdominal pain. I had an extensive conversation with her, after was elucidated that she has not been following the greatest of diets, that she will need to put substantial effort into changing her eating habits. We discussed foods to stay away from, she also states that her computer assembler is looking into getting her prescription form of fish oil to help decrease her triglycerides. CT scan showed a mild pancreatitis with improvement from her previous inflammatory findings. She had been to the hospital a few days prior to this admission with abdominal pain and a CT scan was obtained at that time. I discussed with her the risks and benefits of discharge and she expressed understanding. Also she has previous pain medications available at home from her previous hospital presentation, therefore I will not be prescribing her any further narcotics on discharge. 2. Her paroxysmal A. fib, hypertension, depression all complicated care and her home medications were continued where appropriate Patient Problems: Active and Suspected Problems (Last Reviewed 09/12/19 @ 13:[address] Jimmie Cortes MD) Abdominal pain (Acute) Acute on chronic pancreatitis (Acute) - Physical Exam Vitals/I&O's: Vital Signs Temp Pulse Resp BP Pulse Ox 97.7 F L 57 L 16 111/65 98 09/22/19 09:23 09/22/19 10:12 09/22/19 09:23 09/22/19 09:23 09/22/19 09:23 Oxygen Delivery Method Room Air Weight: 225 lb 1.471 oz Body Mass Index (BMI) 39.9 Finger Stick Blood Glucose 105 Intake and Output for Last 24 Hours 09/20/19 09/21/19 09/22/19 23:59 23:59 23:59 Intake Total 3147.5 / 3147.5 750 / 950 300 / 300 Output Total 100 / 100 Balance 3047.5 / 3047.5 750 / 950 300 / 300 General: Alert, Oriented x3, Cooperative, No apparent distress HEENT: Atraumatic, PERRLA, EOMI, Normocephalic Oral: Moist Mucosa Neck: Supple, No JVD Lungs: Clear to auscultation, Normal air movement, No rhonchi, No wheeze, No rales, Diminished Cardiovascular: Regular rate, Regular Rhythm, Normal S1, Normal S2, No murmurs Abdomen: Soft, Non Tender, Non-Distended, No Hepato-splenomegaly Extremities: No edema, Capillary Refill Less than 3 Seconds Skin: No rashes, No breakdown Neurological: Neuro grossly intact, Sensory exam intact to light touch and pain Psych/Mental Status: Normal Affect, Appropriate Laboratory Results 09/21/19 16:56: POC Glucose 127 H 09/21/19 21:43: POC Glucose 113 H 09/22/19 05:50: Lipase 487 H 09/22/19 06:36: POC Glucose 122 H 09/22/19 11:58: POC Glucose 118 H Current Medications Dextrose (D50w Syringe) 0 gm IV X1 PRN; Protocol PRN Reason: Hypoglycemia Dicyclomine HCl (Bentyl) 20 mg PO TIDAC [facility] Last Admin: 09/22/19 12:00 Dose: 20 mg Documented by: Diltiazem HCl (Cardizem Cd) 180 mg PO DAILY@2200 [facility] Last Admin: 09/21/19 21:39 Dose: Not Given Documented by: Fenofibrate (Tricor) 145 mg PO QHS [facility] Last Admin: 09/21/19 21:44 Dose: 145 mg Documented by: Glucagon () 1 mg IM .X1 PRN PRN Reason: Hypoglycemia Insulin Human Lispro (Humalog Kwikpen (Bkc)) 0 unit SC [facility]; Protocol Last Admin: 09/22/19 12:00 Dose: Not Given Documented by: Ondansetron HCl (Zofran) 4 mg IV Q8H PRN PRN PRN Reason: NAUSEA/VOMITING Last Admin: 09/22/19 04:41 Dose: 4 mg Documented by: Pantoprazole Sodium (Protonix) 40 mg PO QHS [facility] Last Admin: 09/21/19 21:44 Dose: 40 mg Documented by: Promethazine HCl (Phenergan) 12.5 mg IM Q4H PRN PRN PRN Reason: NAUSEA/VOMITING Sertraline HCl (Zoloft) 100 mg PO QHS [facility] Last Admin: 09/21/19 21:44 Dose: 100 mg Documented by: Sodium Chloride () 10 - 40 ml IV UD PRN PRN Reason: SALINE FLUSH Last Admin: 09/22/19 04:41 Dose: 10 ml Documented by: Discharge Activity: Return to Normal Activity Call your doctor if you observe: Fever of 101 or Higher, Shortness of breath, Dizziness, Fainting spells, Swelling in the ankles, Chest pain, Increased palpitations (irregular heartbeat) Home Medications: Medications to take at Discharge sertraline 100 mg tablet 100 mg PO QHS 01/06/19 Omeprazole 40 mg PO QHS 06/22/19 proMETHazine tablet [Phenergan tablet] 25 mg PO Q6H PRN PRN #12 tab 06/22/19 Fenofibrate [Tricor] 145 mg PO QHS 07/29/19 diltiazem HCl 180 mg capsule,extended release 24 hr 180 mg PO DAILY #30 cap 08/18/19 Dicyclomine HCl [Bentyl] 20 mg PO TIDAC #20 cap 08/28/19 Ondansetron [Zofran Odt] 4 mg PO Q8H PRN PRN #10 tab 08/28/19 Oxycodone HCl 1 tab PO BID PRN PRN 09/19/19 Primary Care Physician: Bryant Cardona MD [Primary Care Provider] - Please follow up with your Primary Care Physician in: 3-5 days Please Follow Up With: Endocrinology Disposition: Home Minutes spent on discharge:: 35 Patient Condition:: Stable Medical Necessity - Tobacco Use Smoking Status: Never smoker Meaningful Use Info Meaningful Use Diagnoses (Choose all that apply): None applicable Inpatient E&M: 70656 Disch Hosp
[2019-09-22 15:23] VITALS: BP 137/87; PULSE 53; RESP 16; TEMP 36.7; O2SAT 98
--- NOTE | 2019-09-23 11:59 | CASEMGMT ---
MONICA CM DC PHONE CALL DC DATE: 09/22/2019 DC DISPOSITION: Home DC DIAGNOSIS: pancreatics LACE/STRATA: 15 F/U APPTS MADE PRIOR TO DC: yes Attempted call to phone. No answer, and no messaging with name identifier. Cooper BRAVON RN ACM
== END 2019-09-22 15:49 | disposition home or self-care (01) | DRG 282 ==
LOC: ED 18:14 → MS3 09-20 07:00
PROVIDERS: Internal Medicine; Nurse Practitioner Family; Admitting Provider Internal Medicine; Emergency Provider Emergency Medicine; PCP Family Medicine; Referring Provider Internal Medicine; Visit Provider Family Medicine
DX: K85.80 Other acute pancreatitis without necrosis or infection (principal); K86.1 Other chronic pancreatitis; E66.01 Morbid (severe) obesity due to excess calories; I48.0 Paroxysmal atrial fibrillation; I10 Essential (primary) hypertension; E11.9 Type 2 diabetes mellitus without complications; E78.2 Mixed hyperlipidemia; F32.9 Major depressive disorder, single episode, unspecified; Z79.891 Long term (current) use of opiate analgesic; Z79.899 Other long term (current) drug therapy; E83.51 Hypocalcemia; Z68.39 Body mass index [BMI] 39.0-39.9, adult
CPT/HCPCS: 36415; 74176; 80053; 80061; 81001; 81025; 82465; 82962; 83036; 83690; 85025; 97802; 99284; J7030; A4216; J2405

== ENCOUNTER 2019-10-01 14:39 | Inpatient (IN) | payer MEDICAID, SELFPAY ==
[2019-10-01] VITALS (7 sets, daily range): BP systolic 121–155; BP diastolic 77–106; PULSE 60–84; RESP 14–18; TEMP 35.5–36.6; O2SAT 96–99; BMI 38.9; BMI 39.0
[2019-10-01 15:27] LABS: Absolute Lymphocyte Count 1.66 X10^3/uL (0.83-4.51); Absolute Neutrophil Count 4.6 X10^3/uL (2.0-7.7); Basophil# 0.03 X10^3/uL; Basophil% 0.4 % (0-1); Eosinophil# 0.28 X10^3/uL; Eosinophils% 4.1 % (0-5); Hematocrit 39.9 % (37-47); Hemoglobin 14.3 g/dL (12.0-15.0); Lymphocyte # 1.66 X10^3/ul (4.0); Lymphocyte % 24.1 % (19-41); Mean Corp Hgb Conc 35.8 g/dL (32-36); Mean Corpuscular Hgb 29.9 pg (27.0-32.0); Mean Corpuscular Volume 83.3 fL (81-99); Monocyte# 0.32 X10^3/uL; Monocyte% 4.6 % (0-10); NRBC Flagged by Analyzer 0 % (0-5); Neutrophil # 4.57 X10^3/uL (2.7-7.7); Neutrophil % 66.4 % (47-70); POSITIVE MORPHOLOGY YES; Platelet Count 223 K/mm3 (150-450); RBC Distribution Width CV 14.5 % (11.6-14.6); RBC Distribution Width SD 43.7 fl (35.1-43.9); Red Blood Count 4.79 M/mm3 (4.2-5.4); White Blood Count 6.9 K/mm3 (4.4-11.0)
[2019-10-01 15:31] LABS: Differential Indicated SCAN CRITERIA MET
[2019-10-01] MEDS: Morphine 4 MG/ML Syringe IV ×2 (15:36→16:12)
[2019-10-01] MEDS: 0.9% Normal Saline 1,000 ML 1000 ML IV (15:36)
[2019-10-01] MEDS: Ondansetron 4 MG/2 ML Vial IV ×2 (15:36→18:25)
[2019-10-01 15:40] LABS: Internal QC Validated? YES +Cl - CLEAR BKGD; Pregnancy, Serum, hCG Quali. NEGATIVE Negative
[2019-10-01 15:54] LABS: Platelet Estimate ADEQUATE (ADEQ); Red Cell Morphology NORM C+C NORMAL (NORM C&C)
[2019-10-01 17:06] LABS: AST(SGOT) 58 U/L (15-37); Alanine Aminotransfer ALT/SGPT 50 U/L (13-56); Albumin, Serum 3.4 g/dL (3.2-5.0); Alkaline Phosphatase 80 U/L (45-117); Amylase 174 U/L (25-115); Anion Gap 16 (5-15); BUN 9 mg/dL (7-18); BUN/Creat Ratio 17.8 RATIO (10-20); Bilirubin, Direct 0.07 mg/dL (0.00-0.30); Calcium,Total 8.9 mg/dL (8.5-10.1); Chloride 103 mmol/L (98-107); EST Glomerular Filtration Rate 159 mL/min (>60); Est Glom Filt Rate - Afr Amer 193 mL/min (>60); Estimated Creatinine Clearance 143.52 ml/min; Globulin 4.9 g/dL (2.2-4.2); Glucose 212 mg/dL (74-106); Lipase 2756 U/L (73-393); Potassium 3.8 mmol/L (3.5-5.1); Protein, Total 8.3 g/dL (6.4-8.2); Sodium Level 134 mmol/L (136-145)
--- NOTE | 2019-10-01 17:18 | ED.DCSUM_ITS ---
- ER Visit Summary Date of Service: 10/01/19 Chief Complaint: Abdominal pain History of Present Illness: The patient is a [address] Cardona. Patient has a history of high triglycerides and recurrent pancreatitis. She reports that her pain returned again 11:00 this morning. It came on suddenly. She reports that it is 10 out of 10 in severity. Nothing makes this better or worse. She is been nauseated and vomited 6 times. No blood or emesis. No diarrhea. Last bowel movements today. No melena or hematochezia. No dysuria or frequency. Physical Examination: Vitals: Stable. Afebrile. General: Well-nourished and well-developed. Head: Normocephalic atraumatic. Neck: Supple, no lymphadenopathy. No JVD. Nontender. Cardiovascular: Regular rate and rhythm. No murmurs. Respiratory: No respiratory distress. Clear to auscultation bilaterally. Abdominal: Soft, mild diffuse tenderness palpation is worse in the epigastric region, nondistended, normal bowel sounds. No guarding, rebound, or peritoneal signs. Back: Nontender. Extremities: Nontender, no edema. Skin: Normal color, no rash. Neurologic: Alert and oriented ?3. Cranial nerves II through XII are intact. Normal strength and sensation. Psych: Normal affect. Test Results: CBC is normal. Chem-7 shows a sodium 134, CO2 15, anion gap of 16, glucose 212, creatinine 0.5. LFTs show total protein of 8.3 and globulin 4.9. AST is 58. Her lipase is 2756. Amylase is 174. test is negative. Emergency Department Course and Treatment: Patient was given a liter of normal saline. She is given morphine and Zofran IV. She continues to have severe pain. Treatment Plan: Patient was discussed with Dr. Calix. She will be admitted to the hospital for further evaluation treatment. Disposition: Admitted in improved condition. Impression: 1. Pancreatitis, recurrent. This note was generated with [employer] dictation software. It may contain incorrect words, spelling, and punctuation that were not noted in review of the chart prior to signing ED Disposition - Plan for ED Patient: Referrals: Bryant Cardona MD [Primary Care Provider] -
--- NOTE | 2019-10-01 17:31 | NURSING ---
MED SURG KOR[facility] PANCREATITIS
--- NOTE | 2019-10-01 17:35 | HP.PCM_ITS ---
<Hebert Gibson - Last Filed: 10/01/19 17:35> Problem List (1) Acute on chronic pancreatitis Status: Acute (2) Paroxysmal atrial fibrillation Status: Chronic Comment: Diagnosed during hospitalization in July 2019; (3) Hypertension Status: Chronic (4) Type 2 diabetes mellitus Status: Chronic (5) Hyperlipidemia Status: Chronic (6) Hypertriglyceridemia Status: Chronic (7) Depression Status: Chronic Comment: zoloft, encourage counseling. History of Present Illness Date of Admission: 10/01/19 Chief Complaint: abdominal pain The patient is a 24 year old F with pmhx of triglyceride induced pancreatitis, here with acute episode about a week ago, otherwise as above who presented to the ER with c/o abdominal pain. She was doing well since discharge until this AM. At about 1100 she had a sudden onset of relentless diffuse but worse in the RUQ and epigastric regions with radiation into her back c/w prior episodes of pancreatitis. She has not eaten today, last ate cereal last night. She has no fever/chills. She has nausea and vomiting. Last BM was today and was normal. She follows Dr. Cortes for endocrinology and is prescribed fenofibrate and vascepa for high trigs. She is also a diabetic and morbidly obese. She has had her gallbladder removed in the past. She denies any alcohol use. [] Past Medical History Past Medical History (Chronic Problems): Chronic Problems (Last Reviewed 09/12/19 @ 13:[address] Jimmie Cortes MD) Paroxysmal atrial fibrillation (Chronic) Diagnosed during hospitalization in July 2019; History of severe pre-eclampsia (Chronic) nl baseline labs History of pancreatitis (Chronic) monitor PRN Hypertension (Chronic) Type 2 diabetes mellitus (Chronic) Hyperlipidemia (Chronic) Hypertriglyceridemia (Chronic) Depression (Chronic) zoloft, encourage counseling. Medical History: Medical History (Last Reviewed 09/12/19 @ 13:[address] Jimmie Cortes MD) Depression (Chronic) F32.9 zoloft, encourage counseling. A-fib I48.91 High triglycerides E78.1 Hx of transfusion of whole blood Z92.89 Hyperlipidemia E78.5 Pancreatitis K85.90 HTN (hypertension) I10 Allergies Gadolinium-MRI Contrast Medium [DYE] Allergy (Severe, Verified 09/11/19 14:01) KIDNEY FAILURE kidney failure Home Medications: Ambulatory Orders Medication Instructions Recorded sertraline 100 mg tablet 100 mg PO QHS 01/06/19 Omeprazole 40 mg PO QHS 06/22/19 proMETHazine tablet [Phenergan 25 mg PO Q6H PRN PRN #12 tab 06/22/19 tablet] Fenofibrate [Tricor] 145 mg PO QHS 07/29/19 Ondansetron [Zofran Odt] 4 mg PO Q8H PRN PRN #10 tab 08/28/19 Oxycodone HCl 1 tab PO BID PRN PRN 09/19/19 Dicyclomine HCl [Bentyl] 20 mg PO TIDAC 10/01/19 Diltiazem HCl [Diltiazem 24Hr ER 180 mg PO DAILY 10/01/19 (Cd)] Surgical History: Surgical History (Last Reviewed 09/12/19 @ 13:[address] 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 Jimmie Cortes MD) Mother Diabetes Grandmother Diabetes Grandfather Diabetes Father hyperlipidemia Unknown Depression Hypertension History Items: Diabetes Paternal Family History: Family History (Last Reviewed 09/12/19 @ 13:[address] Jimmie Cortes MD) Mother Diabetes Grandmother Diabetes Grandfather Diabetes Father hyperlipidemia Unknown Depression Hypertension History Items: Diabetes Review of Systems Constitutional: Denies: Chills, Fever, Weight Change HEENT: Denies: Head Aches, Sinus Congestion, Sinus Drainage Cardiovascular: Denies: Chest Pain, Palpitations Respiratory: Denies: Cough, Shortness of breath at rest, Sputum production Gastrointestinal: Reports: Abdominal Pain, Nausea, Vomiting. Denies: Constipation, Diarrhea Genitourinary: Denies: Dysuria, Hematuria, Hesitancy, Urgency Musculoskeletal: Denies: Joint Pain, Joint Tenderness, Muscle pain Skin: Denies: Lesions, Rash, Skin Changes, Wounds Neurological: Denies: Numbness, Tingling, Focal weakness Psychiatric: Denies: Anxiety, Depression, Homicidal Ideations, Suicidal Ideations Hematologic/ Lymphatic: Denies: Easy Bruising, Easy Bleeding VTE Information - Inpt Only VTE Present on Admission: No VTE Mechan Device Prophylaxis: None VTE Pharm Prophylaxis ordered?: Yes - Physical Exam Vitals/I&O's: Vital Signs Temp Pulse Resp BP Pulse Ox 97.6 F L 60 14 144/96 H 98 10/01/19 15:42 10/01/19 15:42 10/01/19 15:42 10/01/19 15:42 10/01/19 15:42 Oxygen Delivery Method Room Air Weight: 220 lb Body Mass Index (BMI) 38.9 Finger Stick Blood Glucose 105 Intake and Output for Last 24 Hours 09/29/19 09/30/19 10/01/19 23:59 23:59 23:59 Intake Total 1000 / 1000 Balance 1000 / 1000 General: Alert, Oriented x3, Cooperative, - - in obvious discomfort HEENT: Atraumatic, PERRLA, EOMI, Normocephalic Neck: Supple, No JVD, Negative Carotid Bruits Lungs: Clear to auscultation, Normal air movement Cardiovascular: Regular rate, No murmurs Abdomen: Bowel Sounds Present, Soft, Hypoactive Bowel Sounds, Obese, Tender - diffuse tenderness to light palp Extremities: No edema, Capillary Refill Less than 3 Seconds Skin: No rashes, No breakdown Musculoskeletal: No Tenderness to Palpation of Joints or Extremities Neurological: Cranial nerves II-XII grossly intact Psych/Mental Status: Normal Affect, Appropriate, Alert and oriented to time, place, person, mood and affect Laboratory Results 10/01/19 15:12: WBC 6.9, RBC 4.79, Hgb 14.3, Hct 39.9, MCV 83.3, MCH 29.9, MCHC 35.8, RDW Std Deviation 43.7, RDW Coeff of Varun 14.5, Plt Count 223, MPV 11.0, Immature Gran % (Auto) 0.400, Neut % (Auto) 66.4, Lymph % (Auto) 24.1, [place] % (Auto) 4.6, Eos % (Auto) 4.1, Baso % (Auto) 0.4, Absolute Neuts (auto) 4.6, Absolute Lymphs (auto) 1.66, Nucleated RBC % 0, Platelet Estimate ADEQUATE, RBC Morphology NORM C+C 10/01/19 15:12: Sodium 134 L, Potassium 3.8, Chloride 103, Carbon Dioxide 15.0 L , Anion Gap 16 H, BUN 9, Creatinine 0.50 L, Estim Creat Clear Calc 143.52, Est GFR (MDRD) Af Amer 193, Est GFR (MDRD) Non-Af 159, BUN/Creatinine Ratio 17.8, Glucose 212 H, Calcium 8.9, Total Bilirubin 0.80, Direct Bilirubin 0.07, AST 58 H, ALT 50, Alkaline Phosphatase 80, Total Protein 8.3 H, Albumin 3.4, Globulin 4.9 H, Amylase 174 H, Lipase 2756 H 10/01/19 15:12: Serum , Qual NEGATIVE Assessment/Plan All Active Problems (Last Reviewed 09/12/19 @ 13:[address] Jimmie Cortes MD) Abdominal pain (Acute) Acute on chronic pancreatitis (Acute) 1. Acute on chronic pancreatitis due to hypertriglyceridemia - NPO. IV fluids. Pain and antiemetic regimen. Referred to GI in past but has not been able to get in yet. Follows Dr. Cortes for endocrinology. -no gallbladder -does not drink -Lipase 2756 -Trigs on 09/19/19 were 2508 -prior CT with hepatosplenomegaly 2. Metabolic acidosis - due to above, aggressive fluids, repeat BMP 3. DMt2 with morbid obesity - SSI. 4. Hypertriglyceridemia - fenofibrate, vascepa 5. pAfib - had an episode during acute pancreatitis flare. Rate rhythm controlled at this point. Continue cardizem 6. HTN - stable 7. Depression - zoloft DVT ppx: lovenox This patient was seen by Hebert Gibson PA-C under the supervision of Dr. Calix. <Peyton Calix - Last Filed: 10/01/19 19:56> History of Present Illness The patient is a 24 year old F [] Past Medical History Medical History: Medical History (Last Reviewed 09/12/19 @ 13:[address] Jimmie Cortes MD) Depression (Chronic) F32.9 zoloft, encourage counseling. A-fib I48.91 High triglycerides E78.1 Hx of transfusion of whole blood Z92.89 Hyperlipidemia E78.5 Pancreatitis K85.90 HTN (hypertension) I10 Allergies Gadolinium-MRI Contrast Medium [DYE] Allergy (Severe, Verified 09/11/19 14:01) KIDNEY FAILURE kidney failure Surgical History: Surgical History (Last Reviewed 09/12/19 @ 13:[address] Jimmie Cortes MD) History of carpal tunnel release of both wrists Z98.890 History of cholecystectomy Z90.49 History of endoscopy Z98.890 - *Family History Maternal Family History: Family History (Last Reviewed 09/12/19 @ 13:[address] Jimmie Cortes MD) Mother Diabetes Grandmother Diabetes Grandfather Diabetes Father hyperlipidemia Unknown Depression Hypertension Paternal Family History: Family History (Last Reviewed 09/12/19 @ 13:[address] Jimmie Cortes MD) Mother Diabetes Grandmother Diabetes Grandfather Diabetes Father hyperlipidemia Unknown Depression Hypertension - Physical Exam Vitals/I&O's: Vital Signs Temp Pulse Resp BP Pulse Ox 97.8 F 72 15 127/86 H 97 10/01/19 17:37 10/01/19 17:37 10/01/19 17:37 10/01/19 17:37 10/01/19 17:37 Oxygen Delivery Method Room Air Weight: 220 lb Body Mass Index (BMI) 38.9 Finger Stick Blood Glucose 105 Intake and Output for Last 24 Hours 09/29/19 09/30/19 10/01/19 23:59 23:59 23:59 Intake Total 1000 / 1000 Balance 1000 / 1000 Laboratory Results 10/01/19 15:12: WBC 6.9, RBC 4.79, Hgb 14.3, Hct 39.9, MCV 83.3, MCH 29.9, MCHC 35.8, RDW Std Deviation 43.7, RDW Coeff of Varun 14.5, Plt Count 223, MPV 11.0, Immature Gran % (Auto) 0.400, Neut % (Auto) 66.4, Lymph % (Auto) 24.1, [place] % (Auto) 4.6, Eos % (Auto) 4.1, Baso % (Auto) 0.4, Absolute Neuts (auto) 4.6, Absolute Lymphs (auto) 1.66, Nucleated RBC % 0, Platelet Estimate ADEQUATE, RBC Morphology NORM C+C 10/01/19 15:12: Sodium 134 L, Potassium 3.8, Chloride 103, Carbon Dioxide 15.0 L , Anion Gap 16 H, BUN 9, Creatinine 0.50 L, Estim Creat Clear Calc 143.52, Est GFR (MDRD) Af Amer 193, Est GFR (MDRD) Non-Af 159, BUN/Creatinine Ratio 17.8, Glucose 212 H, Calcium 8.9, Total Bilirubin 0.80, Direct Bilirubin 0.07, AST 58 H, ALT 50, Alkaline Phosphatase 80, Total Protein 8.3 H, Albumin 3.4, Globulin 4.9 H, Amylase 174 H, Lipase 2756 H 10/01/19 15:12: Serum , Qual NEGATIVE Assessment/Plan Patient seen by Hebert Gibson PA-C under my supervision Patient is a 24-year-old female admitted with a complaint of abdominal pain was started today. She has a history of recurrent pancreatitis due to hypertriglyceridemia. Patient states she is waiting for approval to be put on the CPAP to help control her drive cholesteremia. Pain is mainly epigastric and nonradiating she denies any associated fever, chills, nausea vomiting. She has not started any new medications recently. On admission in the ED, vitals show temperature of 97.8 with blood pressure of 127/86 and pulse rate of 72 as well as respiratory rate of 15. Chemistry showed sodium of 134 with bicarb of 15 and anion gap of 16 and lipase of 2756. CBC showed hemoglobin of 14.3 with WBC of 6.9 and platelets of 223. She has been admitted to be managed for acute recurrent pancreatitis. O/e: Vital Signs Temp Pulse Resp BP Pulse Ox 97.8 F 72 15 127/86 H 97 10/01/19 17:37 10/01/19 17:37 10/01/19 17:37 10/01/19 17:37 10/01/19 17:37 General: Alert, Oriented x3, Cooperative, - - in obvious discomfort HEENT: Atraumatic, PERRLA, EOMI, Normocephalic Neck: Supple, No JVD, Negative Carotid Bruits Lungs: Clear to auscultation, Normal air movement Cardiovascular: Regular rate, No murmurs Abdomen: Bowel Sounds Present, Soft, normal bowel sounds, moderate tenderness on palpation, mainly in the epigastric region, no guarding or rebound tenderness Extremities: No edema, Capillary Refill Less than 3 Seconds Skin: No rashes, No breakdown Musculoskeletal: No Tenderness to Palpation of Joints or Extremities Neurological: Cranial nerves II-XII grossly intact Psych/Mental Status: Normal Affect, Appropriate, Alert and oriented to time, place, person, mood and affect Plan is to admit to MEd surg. Keep NPO for now, and hydrate with IVF. Give IV dilaudid for pain, as she says morphine doesnt work. Lovenox for DVT prophylaxis. Patient's bicarb is also 15 with mild anion gap acidosis. Patient's blood sugars are in the 200s so I think it is unlikely that she has DKA. Will hydrate and trend bicarb and monitor. Insulin sliding scale, accuchecks ACHS. Rest as per Hebert Gibson PA-C's note, which I have reviewed and endorsed. Inpatient E&M: 97662 Init Hosp L3
[2019-10-01] MEDS: HYDROmorphone 1 MG/ML Syringe IV ×3 (18:24→22:49)
[2019-10-01] MEDS: 0.9% Saline Lock 10 ML Syringe IV ×4 (18:25→22:49)
[2019-10-01] MEDS: 0.9% Normal Saline 1,000 ML 150 ML IV (18:26)
[2019-10-01 18:36] LABS: Bedside Glucose 167 mg/dL (70-110)
[2019-10-01] MEDS: Insulin Lispro 100 UNIT/ML INSULN.PEN SC ×2 (18:37→23:03)
[2019-10-01] MEDS: proMETHazine 25 MG/ML Syringe 6.25 MG IV (21:48)
[2019-10-01] MEDS: Fenofibrate 145 MG Tablet PO (22:59)
[2019-10-01] MEDS: Sertraline 100 MG Tablet PO (22:59)
[2019-10-01] MEDS: Pantoprazole Sodium 40 MG Tablet PO (22:59)
[2019-10-02] VITALS (12 sets, daily range): BP systolic 109–154; BP diastolic 66–82; PULSE 82–111; RESP 20–22; TEMP 36.6–36.9; O2SAT 88–95
[2019-10-02] MEDS: 0.9% Normal Saline 1,000 ML 150 ML IV ×2 (00:33→06:21)
[2019-10-02 00:56] LABS: Bedside Glucose 178 mg/dL (70-110)
[2019-10-02] MEDS: 0.9% Saline Lock 10 ML Syringe IV ×5 (01:01→22:07)
[2019-10-02] MEDS: Ketorolac 30 MG/ML Syringe IV ×3 (01:01→15:05)
[2019-10-02] MEDS: oxyCODONE 5 MG Tablet 10 MG PO (01:14)
[2019-10-02] MEDS: HYDROmorphone 1 MG/ML Syringe IV ×7 (02:37→17:11)
[2019-10-02 06:09] LABS: Absolute Lymphocyte Count 0.49 X10^3/uL (0.83-4.51); Absolute Neutrophil Count 8.4 X10^3/uL (2.0-7.7); Basophil# 0.02 X10^3/uL; Basophil% 0.2 % (0-1); Eosinophil# 0.01 X10^3/uL; Eosinophils% 0.1 % (0-5); Hematocrit 42.8 % (37-47); Hemoglobin 14.4 g/dL (12.0-15.0); Lymphocyte # 0.49 X10^3/ul (4.0); Lymphocyte % 5.2 % (19-41); Mean Corp Hgb Conc 33.6 g/dL (32-36); Mean Corpuscular Hgb 28.5 pg (27.0-32.0); Mean Corpuscular Volume 84.8 fL (81-99); Monocyte# 0.44 X10^3/uL; Monocyte% 4.7 % (0-10); NRBC Flagged by Analyzer 0 % (0-5); Neutrophil # 8.42 X10^3/uL (2.7-7.7); Neutrophil % 89.4 % (47-70); POSITIVE DIFFERENTIAL YES; Platelet Count 243 K/mm3 (150-450); RBC Distribution Width CV 15.2 % (11.6-14.6); RBC Distribution Width SD 45.4 fl (35.1-43.9); Red Blood Count 5.05 M/mm3 (4.2-5.4); White Blood Count 9.4 K/mm3 (4.4-11.0)
[2019-10-02 06:16] LABS: Differential Indicated SCAN CRITERIA MET
[2019-10-02] MEDS: Dicyclomine 10 MG Capsule 20 MG PO (06:24)
[2019-10-02 06:30] LABS: Bedside Glucose 182 mg/dL (70-110)
[2019-10-02] MEDS: Insulin Lispro 100 UNIT/ML INSULN.PEN SC ×3 (06:33→18:46)
[2019-10-02 06:44] LABS: Differential Comment SCANNED; Reactive Lymphocyte RARE
[2019-10-02] MEDS: Ondansetron 4 MG/2 ML Vial IV ×2 (08:35→15:10)
[2019-10-02 09:39] LABS: ALB/GLOB Ratio 0.8 RATIO (0.9-2.4); AST(SGOT) 49 U/L (15-37); Alanine Aminotransfer ALT/SGPT 40 U/L (13-56); Albumin, Serum 3.1 g/dL (3.2-5.0); Alkaline Phosphatase 69 U/L (45-117); Anion Gap 9 (5-15); BUN 10 mg/dL (7-18); Calcium,Total 6.7 mg/dL (8.5-10.1); Chloride 106 mmol/L (98-107); Creatinine, Serum 0.63 mg/dL (0.55-1.02); EST Glomerular Filtration Rate 124 mL/min (>60); Est Glom Filt Rate - Afr Amer 150 mL/min (>60); Globulin 3.7 g/dL (2.2-4.2); Glucose 203 mg/dL (74-106); Lipase 5221 U/L (73-393); Potassium 5.1 mmol/L (3.5-5.1); Protein, Total 6.8 g/dL (6.4-8.2); Sodium Level 135 mmol/L (136-145)
--- NOTE | 2019-10-02 12:34 | PN_ITS ---
Subjective: Patient seen and examined. Complains of significant abdominal pain. States she is having difficulty taking a deep breath due to pain. Denies nausea, vomiting. - Physical Exam Vitals/I&O's: Vital Signs Temp Pulse Resp BP Pulse Ox 98.1 F 97 20 H 114/82 H 95 10/02/19 08:30 10/02/19 08:30 10/02/19 08:30 10/02/19 08:30 10/02/19 08:30 Oxygen Delivery Method Room Air Weight: 220 lb Body Mass Index (BMI) 38.9 Finger Stick Blood Glucose 105 Intake and Output for Last 24 Hours 09/30/19 10/01/19 10/02/19 23:59 23:59 23:59 Intake Total 1000 / 1050 1837.5 / 1837.5 Output Total 1250 / 1250 Balance 1000 / 1050 587.5 / 587.5 General: Alert, Oriented x3, Cooperative, - - Appears uncomfortable HEENT: Atraumatic, PERRLA, EOMI, Normocephalic Oral: Dry Mucosa Neck: Supple, No JVD, Negative Carotid Bruits Lungs: Clear to auscultation, Normal air movement Cardiovascular: Regular rate, No murmurs Abdomen: Bowel Sounds Present, Soft, Obese, Tender Extremities: No clubbing, No cyanosis, No edema, Capillary Refill Less than 3 Seconds Skin: No rashes, No breakdown Musculoskeletal: No Tenderness to Palpation of Joints or Extremities Neurological: Cranial nerves II-XII grossly intact, Neuro grossly intact Psych/Mental Status: Normal Affect, Appropriate Laboratory Results 10/01/19 15:12: WBC 6.9, RBC 4.79, Hgb 14.3, Hct 39.9, MCV 83.3, MCH 29.9, MCHC 35.8, RDW Std Deviation 43.7, RDW Coeff of Varun 14.5, Plt Count 223, MPV 11.0, Immature Gran % (Auto) 0.400, Neut % (Auto) 66.4, Lymph % (Auto) 24.1, [place] % (Auto) 4.6, Eos % (Auto) 4.1, Baso % (Auto) 0.4, Absolute Neuts (auto) 4.6, Absolute Lymphs (auto) 1.66, Nucleated RBC % 0, Platelet Estimate ADEQUATE, RBC Morphology NORM C+C 10/01/19 15:12: Sodium 134 L, Potassium 3.8, Chloride 103, Carbon Dioxide 15.0 L , Anion Gap 16 H, BUN 9, Creatinine 0.50 L, Estim Creat Clear Calc 143.52, Est GFR (MDRD) Af Amer 193, Est GFR (MDRD) Non-Af 159, BUN/Creatinine Ratio 17.8, Glucose 212 H, Calcium 8.9, Total Bilirubin 0.80, Direct Bilirubin 0.07, AST 58 H, ALT 50, Alkaline Phosphatase 80, Total Protein 8.3 H, Albumin 3.4, Globulin 4.9 H, Amylase 174 H, Lipase 2756 H 10/01/19 15:12: Serum , Qual NEGATIVE 10/01/19 18:22: POC Glucose 167 H 10/01/19 23:02: POC Glucose 178 H 10/02/19 05:45: WBC 9.4, RBC 5.05, Hgb 14.4, Hct 42.8, MCV 84.8, MCH 28.5, MCHC 33.6 D, RDW Std Deviation 45.4 H, RDW Coeff of Varun 15.2 H, Plt Count 243, MPV 11.0, Immature Gran % (Auto) 0.400, Neut % (Auto) 89.4 H, Lymph % (Auto) 5.2 L, [place] % (Auto) 4.7, Eos % (Auto) 0.1, Baso % (Auto) 0.2, Absolute Neuts (auto) 8.4 H, Absolute Lymphs (auto) 0.49 L, Nucleated RBC % 0, Differential Comment SCANNED, Reactive Lymphocytes RARE 10/02/19 05:45: Sodium Cancelled, Potassium Cancelled, Chloride Cancelled, Carbon Dioxide Cancelled, Anion Gap Cancelled, BUN Cancelled, Creatinine Cancelled, Estim Creat Clear Calc Cancelled, Est GFR (MDRD) Af Amer Cancelled, Est GFR (MDRD) Non-Af Cancelled, BUN/Creatinine Ratio Cancelled, Glucose Cancelled, Calcium Cancelled, Total Bilirubin Cancelled, AST Cancelled, ALT Cancelled, Alkaline Phosphatase Cancelled, Total Protein Cancelled, Albumin Cancelled, Globulin Cancelled, Albumin/Globulin Ratio Cancelled, Lipase Cancelled 10/02/19 06:28: POC Glucose 182 H 10/02/19 07:04: Sodium 135 L, Potassium 5.1, Chloride 106, Carbon Dioxide 20.0 L , Anion Gap 9, BUN 10, Creatinine 0.63, Estim Creat Clear Calc 113.90, Est GFR (MDRD) Af Amer 150, Est GFR (MDRD) Non-Af 124, BUN/Creatinine Ratio 16.0, Glucose 203 H, Calcium 6.7 L, Total Bilirubin 0.60, AST 49 H, ALT 40, Alkaline Phosphatase 69, Total Protein 6.8, Albumin 3.1 L, Globulin 3.7, Albumin/Globulin Ratio 0.8 L, Lipase 5221 H Current Medications Acetaminophen (Tylenol) 650 mg PO Q6H PRN PRN PRN Reason: Pain 1-10 or Fever Dextrose (D50w Syringe) 0 gm IV X1 PRN; Protocol PRN Reason: Hypoglycemia Dicyclomine HCl (Bentyl) 20 mg PO TIDAC [facility] Last Admin: 10/02/19 12:28 Dose: Not Given Documented by: Diltiazem HCl (Cardizem Cd) 180 mg PO DAILY [facility] Last Admin: 10/02/19 12:27 Dose: Not Given Documented by: Fenofibrate (Tricor) 145 mg PO QHS [facility] Last Admin: 10/01/19 22:59 Dose: 145 mg Documented by: Glucagon () 1 mg IM .X1 PRN PRN Reason: Hypoglycemia Hydromorphone HCl (Dilaudid Inj) 1 mg IV Q2H PRN PRN PRN Reason: Pain Score 4-10/10 Last Admin: 10/02/19 10:41 Dose: 1 mg Documented by: Sodium Chloride () 1,000 mls @ 150 mls/hr IV .[id number] [facility] Last Admin: 10/02/19 06:21 Dose: 150 mls/hr Documented by: Sodium Chloride () 250 mls @ 15 mls/hr IV .[id number] PRN PRN Reason: Saline Flush Sodium Chloride () 250 mls @ 15 mls/hr IV .[id number] PRN PRN Reason: Additional IVPB Infusion Insulin Human Lispro (Humalog Kwikpen (Bkc)) 0 unit SC Q6 [facility]; Protocol Last Admin: 10/02/19 12:28 Dose: 1 units Documented by: Ketorolac Tromethamine (Toradol (Bkc)) 30 mg IV Q8 [facility] Stop: 10/03/19 06:01 Last Admin: 10/02/19 05:22 Dose: 30 mg Documented by: Ondansetron HCl (Zofran) 4 mg IV Q6H PRN PRN PRN Reason: NAUSEA Last Admin: 10/02/19 08:35 Dose: 4 mg Documented by: Oxycodone HCl (Oxyir) 10 mg PO Q4H PRN PRN PRN Reason: Pain Score 6-10/10 Last Admin: 10/02/19 01:14 Dose: 10 mg Documented by: Pantoprazole Sodium (Protonix) 40 mg PO QHS [facility] Last Admin: 10/01/19 22:59 Dose: 40 mg Documented by: Promethazine HCl (Phenergan) 6.25 mg IV Q4H PRN PRN PRN Reason: NAUSEA/VOMITING Last Admin: 10/01/19 21:48 Dose: 6.25 mg Documented by: Sertraline HCl (Zoloft) 100 mg PO QHS [facility] Last Admin: 10/01/19 22:59 Dose: 100 mg Documented by: Sodium Chloride () 10 - 40 ml IV UD PRN PRN Reason: SALINE FLUSH Last Admin: 10/02/19 06:31 Dose: 10 ml Documented by: Temazepam (Restoril) 30 mg PO QHS PRN PRN PRN Reason: INSOMNIA Medical Necessity - Tobacco Use Smoking Status: Never smoker Tobacco Use: Non-smoker Assessment/Plan All Active Problems (Last Reviewed 09/12/19 @ 13:[address] Jimmie Cortes MD) Abdominal pain (Acute) Acute on chronic pancreatitis (Acute) 1. Acute on chronic pancreatitis, secondary to severe hypertriglyceridemia- N.p.o. IV fluids. PRN pain regimen. K pad in place for comfort. Recent admission triglyceride 09/19/2019 2508. Lipase on admission 2756 with increased today to 5221. Patient states her doctors in the process of insurance approval for vascepa. Will add omega-3 fatty acid to fenofibrate regimen for severe hypertriglyceridemia pending further outpatient approval of vascepa. 2. Paroxysmal atrial fibrillation-patient reports this was a single episode during prior admission due to pancreatitis. On Cardizem. 3. Hypertension-stable, continue Cardizem. 4. Hyperlipidemia/severe hypertriglyceridemia-on fenofibrate. [place]-3 fatty acid added as noted above. 5. Depression-continue sertraline regimen. 6. Obesity- encouraged diet and lifestyle modifications. DVT prophylaxis- not indicated, low risk. This patient was seen by MARISA Kirkpatrick under the supervision of Dr. Rivero.
[2019-10-02 12:46] LABS: Bedside Glucose 172 mg/dL (70-110)
[2019-10-02] MEDS: 0.9% Normal Saline 1,000 ML 175 ML IV (15:02)
--- NOTE | 2019-10-02 18:03 | PCM.HOSP.N ---
Hospitalist Note I talked at length with the patient's was in the room this afternoon, I went over some points about her medical care including the fact that she needs her triglyceridemia aggressively treated, stated that her family doctor told her that her fenofibrate could cause pancreatitis, patient admits that she is still taking it however. question whether the patient would benefit from going to a facility with an active GI service, I told him at this time that I would not advise transferring her unless her condition worsened and at that time I would reassess her with a repeat CT of the abdomen with attention to the pancreas. In the meantime I told him I would recommend continuing aggressive IV fluid administration and IV pain medication and I would reevaluate her in the morning. Patient's understood and agreed, patient is also in agreement.
[2019-10-02] MEDS: 0.9% Normal Saline 1,000 ML 200 ML IV (18:46)
[2019-10-02 18:51] LABS: Bedside Glucose 156 mg/dL (70-110)
[2019-10-02] MEDS: DiphenhydrAMINE 50 MG/ML Syringe 12.5 MG IV (18:59)
[2019-10-02] MEDS: fentaNYL 100 MCG/2 ML Ampul IV (22:07)
[2019-10-02] MEDS: Atorvastatin Calcium 40 MG Tablet PO (22:13)
[2019-10-02] MEDS: Pantoprazole Sodium 40 MG Tablet PO (22:13)
[2019-10-02] MEDS: Fenofibrate 145 MG Tablet PO (22:13)
[2019-10-02] MEDS: Sertraline 100 MG Tablet PO (22:14)
[2019-10-02] MEDS: 0.9% Normal Saline 1,000 ML 999 ML IV (22:31)
[2019-10-03] VITALS (19 sets, daily range): BP systolic 112–127; BP diastolic 55–74; PULSE 69–98; RESP 16–24; TEMP 36.6–36.7; O2SAT 94–100
[2019-10-03 00:25] LABS: Bedside Glucose 134 mg/dL (70-110)
[2019-10-03] MEDS: DiphenhydrAMINE 50 MG/ML Syringe 12.5 MG IV ×3 (00:25→17:38)
[2019-10-03] MEDS: 0.9% Saline Lock 10 ML Syringe IV ×3 (00:25→04:15)
[2019-10-03] MEDS: 0.9% Normal Saline 1,000 ML 200 ML IV ×4 (00:28→17:33)
[2019-10-03] MEDS: 0.9% Normal Saline 1,000 ML 999 ML IV (00:29)
[2019-10-03] MEDS: oxyCODONE 5 MG Tablet 10 MG PO ×3 (02:44→20:06)
[2019-10-03] MEDS: fentaNYL 100 MCG/2 ML Ampul IV ×4 (04:13→18:26)
[2019-10-03 06:10] LABS: Bedside Glucose 128 mg/dL (70-110)
[2019-10-03 06:48] LABS: Absolute Lymphocyte Count 0.57 X10^3/uL (0.83-4.51); Absolute Neutrophil Count 3.5 X10^3/uL (2.0-7.7); Basophil# 0.03 X10^3/uL; Basophil% 0.7 % (0-1); Eosinophils% 2.2 % (0-5); Hemoglobin 13.4 g/dL (12.0-15.0); Lymphocyte # 0.57 X10^3/ul (4.0); Lymphocyte % 12.7 % (19-41); Mean Corp Hgb Conc 31.9 g/dL (32-36); Mean Corpuscular Hgb 27.8 pg (27.0-32.0); Mean Corpuscular Volume 87.1 fL (81-99); Mean Platelet Vol. 11.1 fl (6.2-12.0); Monocyte# 0.24 X10^3/uL; Monocyte% 5.3 % (0-10); NRBC Flagged by Analyzer 0 % (0-5); Neutrophil # 3.54 X10^3/uL (2.7-7.7); Neutrophil % 78.9 % (47-70); POSITIVE DIFFERENTIAL YES; Platelet Count 219 K/mm3 (150-450); RBC Distribution Width SD 50.2 fl (35.1-43.9); Red Blood Count 4.82 M/mm3 (4.2-5.4); White Blood Count 4.5 K/mm3 (4.4-11.0)
[2019-10-03 06:49] LABS: Differential Indicated SCAN CRITERIA MET
[2019-10-03 07:19] LABS: ALB/GLOB Ratio 0.8 RATIO (0.9-2.4); AST(SGOT) 74 U/L (15-37); Alanine Aminotransfer ALT/SGPT 52 U/L (13-56); Albumin, Serum 2.2 g/dL (3.2-5.0); Alkaline Phosphatase 72 U/L (45-117); Anion Gap 7 (5-15); Atypical Lymphocyte RARE %; BUN 19 mg/dL (7-18); BUN/Creat Ratio 15.1 RATIO (10-20); Calcium,Total 6.2 mg/dL (8.5-10.1); Chloride 110 mmol/L (98-107); Creatinine, Serum 1.26 mg/dL (0.55-1.02); Differential Comment SCANNED; EST Glomerular Filtration Rate 55 mL/min (>60); Est Glom Filt Rate - Afr Amer 67 mL/min (>60); Estimated Creatinine Clearance 56.95 ml/min; Globulin 2.9 g/dL (2.2-4.2); Glucose 136 mg/dL (74-106); Potassium 4.2 mmol/L (3.5-5.1); Protein, Total 5.1 g/dL (6.4-8.2); Sodium Level 137 mmol/L (136-145)
[2019-10-03] MEDS: Calcium Gluconate 1 GM/10 ML Vial IV (09:35)
[2019-10-03] MEDS: dilTIAZem CD 180 MG Capsule PO (09:35)
[2019-10-03] MEDS: Dicyclomine 10 MG Capsule 20 MG PO (09:36)
[2019-10-03] MEDS: Omega-3 Acid Ethyl Esters 1 GM Capsule 2 GM PO (09:45)
--- NOTE | 2019-10-03 11:05 | CASEMGMT ---
Tertiary Facilities in-network with patient's insurance: [facility], [facility], [facility], [facility], [facility], and [facility]
--- NOTE | 2019-10-03 11:49 | CT_ITS ---
STUDY: CT ABDOMEN WITHOUT CONTRAST REASON FOR EXAM: Female, 24 years old. PANCREATITIS, ELEVATED LIPASE, HX CHOLECYSTECTOMY RADIATION DOSAGE (If Supplied By Facility): CTDIvol = ( 20.25 ) mGy, DLP = ( 1297.66 ) mGycm TECHNIQUE: Transaxial images were obtained without intravenous contrast, and with oral contrast. Sagittal and coronal images were reconstructed. Individualized dose optimization techniques were used for this CT. COMPARISON: Comparison is made with prior study dated September 19, 2019 FINDINGS: There now is evidence of a small right pleural effusion with the right basilar atelectasis and/or infiltration. Mild degree of increased markings at the left lung base. The visualized portions of the heart are within normal limits. There is hepatomegaly with diffuse hepatic enlargement. Diffuse fatty infiltration. There are surgical clips in the gallbladder fossa consistent with a prior cholecystectomy. Normal spleen. There is diffuse enlargement of the pancreas with jose m-pancreatic edema suggesting acute pancreatitis. Since prior study, the inflammatory changes have progressed. The inflammatory changes extend into the root of the mesentery as well as in the bilateral pararenal spaces and into the right paracolic gutter. Fluid is seen in the pelvis. Normal bilateral adrenal glands. Normal right kidney. Normal left kidney. Normal visualized stomach. Normal small intestine. Normal colon. There is non-visualization of the appendix. Normal abdominal aorta. Normal inferior vena cava. Normal retroperitoneum. There is evidence of a 4.9 cm x 6.1 cm cyst in the left ovary. Normal abdominal wall. Normal osseous structures. CT/Abdomen without IV Contrast IMPRESSION: New right pleural effusion with right basilar atelectasis and/or infiltration. Hepatomegaly with diffuse fatty infiltration of the liver. Increased peripancreatic inflammatory changes extending into the root of the mesentery as well as the bilateral pararenal spaces as well as the right paracolic gutters. Fluid is seen in the pelvis. Electronically Signed: Popeye Nichols, at 12:56 EDT , Service support ,
[2019-10-03 12:20] LABS: Bedside Glucose 122 mg/dL (70-110)
--- NOTE | 2019-10-03 12:29 | NURSING ---
pt to CT scan via bed w/ ivf running
--- NOTE | 2019-10-03 14:06 | PCM.PROGNOTE ---
Subjective: Patient seen and examined. Reports continued abdominal pain. Developed rash yesterday evening which was suspected secondary to Dilaudid. Patient complains of mild itching. She denies nausea, vomiting. Reports pain is not improved from prior. - Physical Exam Vitals/I&O's: Vital Signs Temp Pulse Resp BP Pulse Ox 98.1 F 97 20 H 124/55 H 94 10/03/19 13:00 10/03/19 13:00 10/03/19 13:00 10/03/19 13:00 10/03/19 13:00 Oxygen Flow Rate (L/min) 2 Oxygen Delivery Method Nasal Cannula Weight: 238 lb Body Mass Index (BMI) 38.9 Finger Stick Blood Glucose 105 Intake and Output for Last 24 Hours 10/01/19 10/02/19 10/03/19 23:59 23:59 23:59 Intake Total 1000 / 1050 5309.58 / 5309.58 4246.67 / 4246.67 Output Total 1440 / 1440 550 / 550 Balance 1000 / 1050 3869.58 / 3869.58 3696.67 / 3696.67 General: Alert, Oriented x3, Cooperative, - - Appears uncomfortable HEENT: Atraumatic, PERRLA, EOMI, Normocephalic Neck: Supple, No JVD, Negative Carotid Bruits Lungs: Clear to auscultation, Diminished Cardiovascular: Regular rate, No murmurs Abdomen: Bowel Sounds Present, Soft, Non Tender, Non-Distended, Obese Extremities: No clubbing, No cyanosis, Capillary Refill Less than 3 Seconds, Edema - Nonpitting bilateral lower extremity Skin: No rashes, No breakdown, - - Urticaria appearing rash scattered bilateral lower extremities and neck/chest area. Appears to be resolving. Musculoskeletal: No Tenderness to Palpation of Joints or Extremities Neurological: Cranial nerves II-XII grossly intact, Neuro grossly intact Psych/Mental Status: Flat Affect Laboratory Results 10/02/19 18:45: POC Glucose 156 H 10/03/19 00:14: POC Glucose 134 H 10/03/19 05:47: Sodium 137, Potassium 4.2, Chloride 110 H, Carbon Dioxide 20.0 L, Anion Gap 7, BUN 19 H, Creatinine 1.26 H, Estim Creat Clear Calc 56.95, Est GFR (MDRD) Af Amer 67, Est GFR (MDRD) Non-Af 55 L, BUN/Creatinine Ratio 15.1, Glucose 136 H, Calcium 6.2 L*, Total Bilirubin 1.00, AST 74 H, ALT 52, Alkaline Phosphatase 72, Total Protein 5.1 L, Albumin 2.2 L, Globulin 2.9, Albumin/Globulin Ratio 0.8 L 10/03/19 05:47: WBC 4.5, RBC 4.82, Hgb 13.4, Hct 42.0, MCV 87.1, MCH 27.8, MCHC 31.9 L D, RDW Std Deviation 50.2 H, RDW Coeff of Varun 16.0 H, Plt Count 219, MPV 11.1, Immature Gran % (Auto) 0.200, Neut % (Auto) 78.9 H, Lymph % (Auto) 12.7 L, [place] % (Auto) 5.3, Eos % (Auto) 2.2, Baso % (Auto) 0.7, Absolute Neuts (auto) 3.5, Absolute Lymphs (auto) 0.57 L, Nucleated RBC % 0, Differential Comment SCANNED, Atypical Lymphocytes RARE 10/03/19 06:06: POC Glucose 128 H 10/03/19 12:15: POC Glucose 122 H Current Medications Acetaminophen (Tylenol) 650 mg PO Q6H PRN PRN PRN Reason: Pain 1-10 or Fever Atorvastatin Calcium (Lipitor) 40 mg PO QHS [facility] Last Admin: 10/02/19 22:13 Dose: 40 mg Documented by: Dextrose (D50w Syringe) 0 gm IV X1 PRN; Protocol PRN Reason: Hypoglycemia Dicyclomine HCl (Bentyl) 20 mg PO TIDAC [facility] Last Admin: 10/03/19 09:36 Dose: 20 mg Documented by: Diltiazem HCl (Cardizem Cd) 180 mg PO DAILY [facility] Last Admin: 10/03/19 09:35 Dose: 180 mg Documented by: Diphenhydramine HCl (Benadryl) 12.5 mg IV Q8H [facility] Last Admin: 10/03/19 09:34 Dose: 12.5 mg Documented by: Fenofibrate (Tricor) 145 mg PO QHS [facility] Last Admin: 10/02/19 22:13 Dose: 145 mg Documented by: Fentanyl Citrate (Sublimaze (100mcg Ampule)) 25 - 50 mcg IV Q3H PRN PRN PRN Reason: Pain Score 4-10/10 Last Admin: 10/03/19 13:16 Dose: 25 mcg Documented by: Glucagon () 1 mg IM .X1 PRN PRN Reason: Hypoglycemia Sodium Chloride () 1,000 mls @ 200 mls/hr IV .Q5H [facility] Last Admin: 10/03/19 13:17 Dose: 200 mls/hr Documented by: Sodium Chloride () 250 mls @ 15 mls/hr IV .[id number] PRN PRN Reason: Saline Flush Sodium Chloride () 250 mls @ 15 mls/hr IV .[id number] PRN PRN Reason: Additional IVPB Infusion Insulin Human Lispro (Humalog Kwikpen (Bkc)) 0 unit SC Q6 [facility]; Protocol Last Admin: 10/03/19 13:18 Dose: Not Given Documented by: [id number]-Ptni Ethyl Esters (Lovaza) 2 gm PO BIDCM [facility] Last Admin: 10/03/19 09:45 Dose: 2 gm Documented by: Ondansetron HCl (Zofran) 4 mg IV Q6H PRN PRN PRN Reason: NAUSEA Last Admin: 10/02/19 15:10 Dose: 4 mg Documented by: Oxycodone HCl (Oxyir) 10 mg PO Q4H PRN PRN PRN Reason: Pain Score 6-10/10 Last Admin: 10/03/19 06:40 Dose: 10 mg Documented by: Pantoprazole Sodium (Protonix) 40 mg PO QHS [facility] Last Admin: 10/02/19 22:13 Dose: 40 mg Documented by: Sertraline HCl (Zoloft) 100 mg PO QHS [facility] Last Admin: 10/02/19 22:14 Dose: 100 mg Documented by: Sodium Chloride () 10 - 40 ml IV UD PRN PRN Reason: SALINE FLUSH Last Admin: 10/03/19 04:15 Dose: 10 ml Documented by: Temazepam (Restoril) 30 mg PO QHS PRN PRN PRN Reason: INSOMNIA Medical Necessity - Tobacco Use Smoking Status: Never smoker Tobacco Use: Non-smoker Assessment/Plan All Active Problems (Last Reviewed 09/12/19 @ 13:[address] Jimmie Cortes MD) Abdominal pain (Acute) Acute on chronic pancreatitis (Acute) 1. Acute on chronic pancreatitis, secondary to severe hypertriglyceridemia- N.p.o. IV fluids. PRN pain regimen. K pad in place for comfort. Recent admission triglyceride 09/19/2019 2508. Lipase on admission 2756 with increased today to 5221. Patient states her doctors in the process of insurance approval for vascepa. Will add omega-3 fatty acid to fenofibrate regimen for severe hypertriglyceridemia pending further outpatient approval of vascepa. CT of abdomen pelvis shows increased peripancreatic inflammatory changes extending into the root of the mesentery as well as bilateral pararenal spaces and right pericolic gutters. Given worsening appearance and no GI availability, will discuss with patient and in transfer to tertiary facility for further management and evaluation. 2. Acute kidney injury-IV fluids, trend BMP. 3. Paroxysmal atrial fibrillation-patient reports this was a single episode during prior admission due to pancreatitis. On Cardizem. 4. Hypertension-stable, continue Cardizem. 5. Hyperlipidemia/severe hypertriglyceridemia-on fenofibrate. [place]-3 fatty acid added as noted above. 6. Depression-continue sertraline regimen. 7. Obesity- encouraged diet and lifestyle modifications. DVT prophylaxis- not indicated, low risk. This patient was seen by MARISA Kirkpatrick under the supervision of Dr. Rivero.
--- NOTE | 2019-10-03 15:37 | PCM.DC.SUM ---
Discharge Date and Diagnosis Date of Admission: 10/01/19 Date of Discharge: 10/03/19 - Primary Discharge Diagnosis Acute Problems: 1. Acute on chronic pancreatitis, secondary to severe hypertriglyceridemia 2. Acute kidney injury 3. Paroxysmal atrial fibrillation 4. Hypertension 5. Hyperlipidemia/severe hypertriglyceridemia 6. Depression 7. Obesity - Secondary Discharge Diagnosis Chronic Problems: Chronic Problems (Last Reviewed 09/12/19 @ 13:[address] Jimmie Cortes MD) Paroxysmal atrial fibrillation (Chronic) Diagnosed during hospitalization in July 2019; History of severe pre-eclampsia (Chronic) nl baseline labs History of pancreatitis (Chronic) monitor PRN Hypertension (Chronic) Type 2 diabetes mellitus (Chronic) Hyperlipidemia (Chronic) Hypertriglyceridemia (Chronic) Depression (Chronic) zoloft, encourage counseling. Hospital Course and Treatment Imaging Results: Diagnostic Data Abdomen CT 10/03/19 11:49 IMPRESSION: New right pleural effusion with right basilar atelectasis and/or infiltration. Hepatomegaly with diffuse fatty infiltration of the liver. Increased peripancreatic inflammatory changes extending into the root of the mesentery as well as the bilateral pararenal spaces as well as the right paracolic gutters. Fluid is seen in the pelvis. Electronically Signed: Popeye Nichols, at 12:56 EDT , Service support , Operations: None Procedures: None Summary of Care Provided: The patient is a 24 year old F admitted 10/01/2019 due to abdominal pain. 1. Acute on chronic pancreatitis, secondary to severe hypertriglyceridemia- N.p.o. IV fluids. PRN pain regimen. Recent admission triglyceride 09/19/2019 2508. Lipase on admission 2756 with increased today to 5221. Patient states her doctors in the process of insurance approval for vascepa. Will add omega-3 fatty acid to fenofibrate regimen for severe hypertriglyceridemia pending further outpatient approval of vascepa. CT of abdomen pelvis shows increased peripancreatic inflammatory changes extending into the root of the mesentery as well as bilateral pararenal spaces and right pericolic gutters. Given worsening appearance and no GI availability, patient transferred to tertiary facility for further management and evaluation. 2. Acute kidney injury-IV fluids, trend BMP. 3. Paroxysmal atrial fibrillation-patient reports this was a single episode during prior admission due to pancreatitis. On Cardizem. 4. Hypertension-stable, continue Cardizem. 5. Hyperlipidemia/severe hypertriglyceridemia-on fenofibrate. [place]-3 fatty acid added as noted above. 6. Depression-continue sertraline regimen. 7. Obesity- encouraged diet and lifestyle modifications. General: Alert, Oriented x3, Cooperative, - - Appears uncomfortable HEENT: Atraumatic, PERRLA, EOMI, Normocephalic Neck: Supple, No JVD, Negative Carotid Bruits Lungs: Clear to auscultation, Diminished Cardiovascular: Regular rate, No murmurs Abdomen: Bowel Sounds Present, Soft, Non Tender, Non-Distended, Obese Extremities: No clubbing, No cyanosis, Capillary Refill Less than 3 Seconds, Edema - Nonpitting bilateral lower extremity Skin: No rashes, No breakdown, - - Urticaria appearing rash scattered bilateral lower extremities and neck/chest area. Appears to be resolving. Musculoskeletal: No Tenderness to Palpation of Joints or Extremities Neurological: Cranial nerves II-XII grossly intact, Neuro grossly intact Psych/Mental Status: Flat Affect Patient seen and examined prior to discharge. Physical assessment as noted above. Patient is stable for discharge with follow up recommendations as noted above. This patient was seen by MARISA Kirkpatrick under the supervision of Dr. Rivero. - Physical Exam Vitals/I&O's: Vital Signs Temp Pulse Resp BP Pulse Ox 98.1 F 97 20 H 124/55 H 94 10/03/19 13:00 10/03/19 14:00 10/03/19 13:00 10/03/19 13:00 10/03/19 13:00 Oxygen Flow Rate (L/min) 2 Oxygen Delivery Method Nasal Cannula Weight: 238 lb Body Mass Index (BMI) 38.9 Finger Stick Blood Glucose 105 Intake and Output for Last 24 Hours 10/01/19 10/02/19 10/03/19 23:59 23:59 23:59 Intake Total 1000 / 1050 5309.58 / 5309.58 4246.67 / 4246.67 Output Total 1440 / 1440 550 / 550 Balance 1000 / 1050 3869.58 / 3869.58 3696.67 / 3696.67 Laboratory Results 10/02/19 18:45: POC Glucose 156 H 10/03/19 00:14: POC Glucose 134 H 10/03/19 05:47: Sodium 137, Potassium 4.2, Chloride 110 H, Carbon Dioxide 20.0 L, Anion Gap 7, BUN 19 H, Creatinine 1.26 H, Estim Creat Clear Calc 56.95, Est GFR (MDRD) Af Amer 67, Est GFR (MDRD) Non-Af 55 L, BUN/Creatinine Ratio 15.1, Glucose 136 H, Calcium 6.2 L*, Total Bilirubin 1.00, AST 74 H, ALT 52, Alkaline Phosphatase 72, Total Protein 5.1 L, Albumin 2.2 L, Globulin 2.9, Albumin/Globulin Ratio 0.8 L 10/03/19 05:47: WBC 4.5, RBC 4.82, Hgb 13.4, Hct 42.0, MCV 87.1, MCH 27.8, MCHC 31.9 L D, RDW Std Deviation 50.2 H, RDW Coeff of Varun 16.0 H, Plt Count 219, MPV 11.1, Immature Gran % (Auto) 0.200, Neut % (Auto) 78.9 H, Lymph % (Auto) 12.7 L, [place] % (Auto) 5.3, Eos % (Auto) 2.2, Baso % (Auto) 0.7, Absolute Neuts (auto) 3.5, Absolute Lymphs (auto) 0.57 L, Nucleated RBC % 0, Differential Comment SCANNED, Atypical Lymphocytes RARE 10/03/19 06:06: POC Glucose 128 H 10/03/19 12:15: POC Glucose 122 H Current Medications Acetaminophen (Tylenol) 650 mg PO Q6H PRN PRN PRN Reason: Pain 1-10 or Fever Atorvastatin Calcium (Lipitor) 40 mg PO QHS [facility] Last Admin: 10/02/19 22:13 Dose: 40 mg Documented by: Dextrose (D50w Syringe) 0 gm IV X1 PRN; Protocol PRN Reason: Hypoglycemia Dicyclomine HCl (Bentyl) 20 mg PO TIDAC [facility] Last Admin: 10/03/19 09:36 Dose: 20 mg Documented by: Diltiazem HCl (Cardizem Cd) 180 mg PO DAILY [facility] Last Admin: 10/03/19 09:35 Dose: 180 mg Documented by: Diphenhydramine HCl (Benadryl) 12.5 mg IV Q8H [facility] Last Admin: 10/03/19 09:34 Dose: 12.5 mg Documented by: Fenofibrate (Tricor) 145 mg PO QHS [facility] Last Admin: 10/02/19 22:13 Dose: 145 mg Documented by: Fentanyl Citrate (Sublimaze (100mcg Ampule)) 25 - 50 mcg IV Q3H PRN PRN PRN Reason: Pain Score 4-10/10 Last Admin: 10/03/19 13:16 Dose: 25 mcg Documented by: Glucagon () 1 mg IM .X1 PRN PRN Reason: Hypoglycemia Sodium Chloride () 1,000 mls @ 200 mls/hr IV .Q5H [facility] Last Admin: 10/03/19 13:17 Dose: 200 mls/hr Documented by: Sodium Chloride () 250 mls @ 15 mls/hr IV .[id number] PRN PRN Reason: Saline Flush Sodium Chloride () 250 mls @ 15 mls/hr IV .[id number] PRN PRN Reason: Additional IVPB Infusion Insulin Human Lispro (Humalog Kwikpen (Bkc)) 0 unit SC Q6 [facility]; Protocol Last Admin: 10/03/19 13:18 Dose: Not Given Documented by: Litzq-6-Fdct Ethyl Esters (Lovaza) 2 gm PO BIDCM [facility] Last Admin: 10/03/19 09:45 Dose: 2 gm Documented by: Ondansetron HCl (Zofran) 4 mg IV Q6H PRN PRN PRN Reason: NAUSEA Last Admin: 10/02/19 15:10 Dose: 4 mg Documented by: Oxycodone HCl (Oxyir) 10 mg PO Q4H PRN PRN PRN Reason: Pain Score 6-10/10 Last Admin: 10/03/19 06:40 Dose: 10 mg Documented by: Pantoprazole Sodium (Protonix) 40 mg PO QHS [facility] Last Admin: 10/02/19 22:13 Dose: 40 mg Documented by: Sertraline HCl (Zoloft) 100 mg PO QHS [facility] Last Admin: 10/02/19 22:14 Dose: 100 mg Documented by: Sodium Chloride () 10 - 40 ml IV UD PRN PRN Reason: SALINE FLUSH Last Admin: 10/03/19 04:15 Dose: 10 ml Documented by: Temazepam (Restoril) 30 mg PO QHS PRN PRN PRN Reason: INSOMNIA Home Medications: Medications to take at Discharge sertraline 100 mg tablet 100 mg PO QHS 01/06/19 Omeprazole 40 mg PO QHS 06/22/19 proMETHazine tablet [Phenergan tablet] 25 mg PO Q6H PRN PRN #12 tab 06/22/19 Fenofibrate [Tricor] 145 mg PO QHS 07/29/19 Ondansetron [Zofran Odt] 4 mg PO Q8H PRN PRN #10 tab 08/28/19 Oxycodone HCl 1 tab PO BID PRN PRN 09/19/19 Dicyclomine HCl [Bentyl] 20 mg PO TIDAC 10/01/19 Diltiazem HCl [Diltiazem 24Hr ER (Cd)] 180 mg PO DAILY 10/01/19 Primary Care Physician: Bryant Cardona MD [Primary Care Provider] - Disposition: Acute care Hospital Minutes spent on discharge:: 35 Patient Condition:: Stable Medical Necessity - Tobacco Use Smoking Status: Never smoker Tobacco Use: Non-smoker Meaningful Use Info Meaningful Use Diagnoses (Choose all that apply): None applicable
--- NOTE | 2019-10-03 16:02 | NURSING ---
report called to [facility] nurse , pt transferring to room 320 to nurse pryor
== END 2019-10-03 20:55 | disposition short-term general hospital (02) | DRG 282 ==
LOC: ED 15:25 → MS3 17:42
PROVIDERS: Nurse Practitioner Family; Physician Assistant; Admitting Provider Student in an Organized Health Care Education/Training Program; Emergency Provider Emergency Medicine; PCP Family Medicine; Visit Provider Internal Medicine
DX: K85.90 Acute pancreatitis without necrosis or infection, unspecified (principal); K86.1 Other chronic pancreatitis; E78.1 Pure hyperglyceridemia; N17.9 Acute kidney failure, unspecified; I48.0 Paroxysmal atrial fibrillation; I10 Essential (primary) hypertension; E78.5 Hyperlipidemia, unspecified; F32.9 Major depressive disorder, single episode, unspecified; E11.9 Type 2 diabetes mellitus without complications; E66.01 Morbid (severe) obesity due to excess calories; Z79.899 Other long term (current) drug therapy; Z68.38 Body mass index [BMI] 38.0-38.9, adult; E87.2 Acidosis; R16.2 Hepatomegaly with splenomegaly, not elsewhere classified; L27.1 Localized skin eruption due to drugs and medicaments taken internally; T40.2X5A Adverse effect of other opioids, initial encounter
CPT/HCPCS: 36415; 74150; 80048; 80053; 80076; 82150; 82962; 83690; 84703; 85025; 97802; 99284; J7030; A4216; J0610; J2405

== ENCOUNTER 2019-11-18 07:16 | Day surgery (SDC) | payer MEDICAID, SELFPAY ==
[2019-11-06 11:26] VITALS: BMI 38.9
[2019-11-10 17:06] LABS: Hematocrit 39.1 % (37-47); Hemoglobin 12.5 g/dL (12.0-15.0); Mean Corpuscular Hgb 26.9 pg (27.0-32.0); Mean Corpuscular Volume 84.3 fL (81-99); Mean Platelet Vol. 11.3 fl (6.2-12.0); Platelet Count 223 K/mm3 (150-450); RBC Distribution Width CV 13.3 % (11.6-14.6); RBC Distribution Width SD 41.2 fl (35.1-43.9); Red Blood Count 4.64 M/mm3 (4.2-5.4); White Blood Count 4.9 K/mm3 (4.4-11.0)
[2019-11-10 18:31] LABS: AST(SGOT) 29 U/L (15-37); Alanine Aminotransfer ALT/SGPT 52 U/L (13-56); Alkaline Phosphatase 67 U/L (45-117); Anion Gap 3 (5-15); BUN 12 mg/dL (7-18); BUN/Creat Ratio 15.4 RATIO (10-20); Chloride 108 mmol/L (98-107); Creatinine, Serum 0.78 mg/dL (0.55-1.02); EST Glomerular Filtration Rate 96 mL/min (>60); Est Glom Filt Rate - Afr Amer 116 mL/min (>60); Globulin 4.1 g/dL (2.2-4.2); Glucose 135 mg/dL (74-106); Potassium 3.9 mmol/L (3.5-5.1); Protein, Total 8.1 g/dL (6.4-8.2); Sodium Level 139 mmol/L (136-145)
[2019-11-11 11:17] LABS: Lipase 211 U/L (73-393)
[2019-11-18] VITALS (8 sets, daily range): BP systolic 100–152; BP diastolic 47–97; PULSE 56–80; RESP 16–18; TEMP 36.1–36.6; O2SAT 94–99; BMI 40.1
--- NOTE | 2019-11-18 07:20 | HP.PCM_ITS ---
- Problem List (1) Sterilization Status: Acute (2) History of pancreatitis Status: Chronic Comment: monitor PRN (3) Type 2 diabetes mellitus Status: Chronic History and Physical Date of Admission: 11/18/19 Intake Vital Signs 11/06/19 Height 5 ft 3 in 11/06/19 Weight: 222 lb 11/06/19 BMI 39.3 11/06/19 BP 100/80 Intake Visit Reasons: Surgical consult Chief Complaint: surgical consult Director Business Development Required: No Is patient in pain?: No Allergies Gadolinium-MRI Contrast Medium [DYE] Allergy (Severe, Verified 11/06/19 11:24) KIDNEY FAILURE Medications sertraline 100 mg tablet 100 mg PO QHS 01/06/19 [History Confirmed 11/06/19] Omeprazole 40 mg PO QHS 06/22/19 [History Confirmed 11/06/19] proMETHazine tablet [Phenergan tablet] 25 mg PO Q6H PRN PRN #12 tab 06/22/19 [Rx Confirmed 11/06/19] Ondansetron [Zofran Odt] 4 mg PO Q8H PRN PRN #10 tab 08/28/19 [Rx Confirmed 11/06/19] Oxycodone HCl 1 tab PO BID PRN PRN 09/19/19 [History Confirmed 11/06/19] omega-3 acid ethyl esters 1 gram capsule 2 cap PO BID #120 cap 10/06/19 [Rx Confirmed 11/06/19] diltiazem HCl 120 mg capsule,extended release 24 hr 120 mg PO DAILY #30 cap 10/20/19 [Rx Confirmed 11/06/19] levothyroxine 50 mcg tablet 50 mcg PO DAILY 11/06/19 [History Confirmed 11/06/19] Is last menstrual period known: No Post menopausal: No Patient : No : No PFSH Medical History Depression (Chronic) A-fib (Acute) High triglycerides (Acute) Hx of transfusion of whole blood (Acute) Hyperlipidemia (Acute) Pancreatitis (Acute) HTN (hypertension) (Chronic) Surgical History History of carpal tunnel release of both wrists (Acute) History of cholecystectomy (Acute) History of endoscopy (Acute) Family History Mother Diabetes Grandmother Diabetes Grandfather Diabetes Father hyperlipidemia Unknown Depression Hypertension Social History (Updated 11/06/19 @ 14:[address] 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 she is wanting a sterilization but has been struggling with chronic pancreatitis. she is finally cleared medically right now and wanting to proceed. she dneie snay bleeding or abnormal discharge or pelvic pain. Female Reproductive History Menopausal Symptoms: No night sweats Pregancy History 3 Elective abortions Hx Para 2 Spontaneous abortions Hx # Term Pregnancies Ectopic pregnancies Hx # Pregnancies Multiple births # of living children 3 Past Pregnancies Del. Date Name GA/Weeks Outcome Route Bth Weight Infant Gen Labor Lgth Anesthesia Del Locatn Provider FOB 09/10/15 Addyson 37 live - full term NS VD Female [facility] Adriel 07/12/17 Dolly 37 live - full term 7 pounds Female epidural [facility] 05/09/19 Hong 34 live - Male epidural [facility] Delivery Date: 09/10/15 No notes to display Delivery Date: 07/12/17 On 07/24/17 @ 16:35 Sydni Chen Severe preeclampsia, DM, Oligo, HTN Delivery Date: 05/09/19 On 05/12/19 @ 16:17 Sydni Chen IOL pre-e with severe features ROS Const Constitutional: Denies fatigue, night sweats, weight gain or weight loss ENT ENT: Reports system reviewed and no additional complaints, except as docu Cardio Card: Denies chest pain Resp Resp: Denies cough or dyspnea GI GI: Reports as per HPI; denies abdominal pain, constipation, nausea or vomiting : Denies nipple discharge, urinary frequency, urinary incontinence, urinary hesitancy, urinary urgency, vaginal discharge, vaginal dryness, vaginal odor or vaginal itching Musc Musc: Denies joint pain, back pain or muscle weakness Skin Skin/Breast: Denies hair loss, change in hair, dry skin, breast lump, breast pain, breast skin changes or nipple discharge Neuro Neuro: Reports system reviewed and no additional complaints, except as docu Psych Psych: Reports system reviewed and no additional complaints, except as docu Endo Endo: Denies cold intolerance, excessive sweating, heat intolerance or increased thirst Dylon/Lymph Hematologic/Lymphatic: Denies easy bleeding, Denies easy bruising, Denies enlarged lymph nodes Exam Const General: cooperative, healthy appearing, comfortable, no acute distress, well developed Orientation: alert [facility] Head: normal to inspection, normocephalic Ears: hearing grossly normal bilaterally, external ears normal Nose: external nose normal, nares normal Face and sinus: normal facial exam Neck Neck: normal visual inspection, no lymphadenopathy Thyroid: thyroid normal Chest Chest palpation & inspection: normal inspection of the chest Resp Effort & Inspection: normal respiratory effort Cardio Rate: regular rate Rhythm: regular rhythm GI Inspection: normal to inspection, non-distended Palpation: soft, no hepatosplenomegaly Musc Other: gross motor intact no deficits, full bilateral strength Skin General: no rashes or lesions noted Neuro General: alert, awake, moves all extremities, no focal motor deficits Motor: muscle tone normal throughout Extrem General: normal to inspection, no pedal edema Psych Appearance: grossly normal Mental Status: mental status grossly normal Affect: normal affect Speech and Movement: speech and movement normal Assessment & Plan Problems 1. Sterilization Z30.2 Plan After discussing the patient's diagnosis and treatment plan options, patient wishes to proceed with surgical management. I have discussed with the patient the risks, benefits, and alternatives of the procedure which include but are not limited to risks of anesthesia, bleeding, infection, possible damage to bowel, bladder, or surrounding vasculature which could lead to additional surgery to evaluate any complications. Patient agrees to procedure and wishes to proceed. ACOG/uptodate references given for additional information regarding procedure. Coding Level of Care Code Off vis,est,level 4 Diagnoses Sterilization Z30.2 UPDATE- I have seen the patient and performed any clinically relevant updates to the history and physical exam. Britany Urena MD
[2019-11-18 07:52] LABS: Internal QC Validated? YES +Cl - CLEAR BKGD
[2019-11-18 07:53] LABS: Pregnancy, Urine Negative Negative
[2019-11-18 08:36] LABS: Bedside Glucose 183 mg/dL (70-110)
[2019-11-18] MEDS: Lactated Ringers 1,000 ML 100 ML IV ×2 (08:45→09:54)
--- NOTE | 2019-11-18 08:55 | FALS_PTH ---
PATIENT: ADALID DIAZ LOC: [facility] [place] U#:[id number] AGE/SX: 24/F ROOM: RE11/18/[address]: Dr. Britany Urena MD : [id number] BED: DIS: 11/18/2019 SPEC #: [id number] RECD: 11/18/19 11:33 STATUS: CLINT MONIQUE #: [id number] CHRIS: 11/18/19 08:[address]: Britany Urena DEPT: SURGICAL PATHOLOGY RECD BY: Chasity Laws ENTERED: 11/18/19 11:52 SP TYPE: FALL TUBES OTHR DR: Dr. Bryant Cardona MD Tissues: Fallopian tube Procedures: Surgery Specimen Level II HEADER OPERATION: Laparoscopic salpingectomy PRE-OP DIAGNOSIS: Sterilization TISSUE SUBMITTED: Bilateral fallopian tubes MICROSCOPIC DIAGNOSIS Right and left fallopian tubes, bilateral salpingectomies: Two complete segments of fallopian tubes with no pathologic change. AM:brandon 11/19/19 MICROSCOPIC DESCRIPTION Slides are reviewed. GROSS DESCRIPTION Received in fixative is one container labeled with the patient's name and designated bilateral fallopian tubes. The specimen consists of bilateral fallopian tubes including fimbrial ends. The fallopian tubes are not identified as right or left. One of the fallopian tubes measure 9 cm in length and up to 0.7 cm in diameter. The second fallopian tube is received in two pieces and the distal end with fimbrial end measures 3.5 cm in length and 0.7 cm in diameter. The proximal end measures 5 cm in length and 0.4 cm in diameter. [place] sections are submitted in two cassettes as follows: 1 - intact fallopian tube, 2 - fallopian tube received in two pieces. / KRYSTINA:brandon 11/18/19 TC:4 [facility]: [id number] x2
--- NOTE | 2019-11-18 09:02 | PCM.OPRPT ---
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 Bladder was drained of clear urine and SCDs were on preoperatively. Uterus was sounded and a uterine manipulator was placed after dilating. Attention was then paid to the abdominal portion of the procedure and the umbilicus was elevated with towel clamps and injected with Marcaine and after a 5 mm incision was made and the Veress needle was entered into the abdomen confirmed to be intra-abdominal with a low opening pressure of less than 5 mmHg. Abdomen was insufflated with CO2 gas and a 5 mm optical trocar was placed under direct visualization. A 5 mm port suprapubically was placed under direct visualization. Uterus was well visualized and bilateral fallopian tubes identified and bilateral tubes were elevated and transecting across the mesosalpinx and the attachment to the uterine corpus bilaterally the tubes were removed without complication. Excellent hemostasis was noted. Fallopian tubes were removed through the lower port site without complication. Liver and upper abdomen were visualized notably within normal limits and no other gross abnormalities were seen in the abdomen. All instruments removed from the abdomen after gas was desufflated. Port sites were closed with 3-0 Monocryl Steri's and op sites were applied. All instruments removed from the vagina and patient was awoken and taken recovery in stable condition. Grafts/Implants Used: none - Complications none - Admit VTE Documentation VTE Present on Admission: No VTE Mechan Device Prophylaxis: SCD's Multi Select Codes - Urinary/Genital Urinary/Genital CPT Codes: 59317 Laproscopic BS/O
--- NOTE | 2019-11-18 09:08 | DCINST_ITS ---
Discharge Diet: No Restrictions - Increase fluid intake for the next 48 hours. Discharge Activity: Return to Normal Activity, May Drive - when you are no longer taking narcotic pain medications., May Shower, May Take a Tub Bath - in 7 days Additional Activity Instructions:: Ambulate often the next week after surgery. Nothing in the vagina for 5 days. Call your doctor if your incision/area has: Continuous Slow Oozing, Sudden Increased Bleeding, Increased Pain/ Swelling, Increased Redness, Foul Smelling Discharge Call your doctor if you observe: Fever of 101 or Higher Allergies/Adverse Reactions: Allergies Gadolinium-MRI Contrast Medium [DYE] Allergy (Severe, Verified 11/18/19 08:07) KIDNEY FAILURE kidney failure hydromorphone [From Dilaudid] Allergy (Verified 11/18/19 08:08) Rash Medications to take at Discharge sertraline 100 mg tablet 100 mg PO QHS 01/06/19 Omeprazole 40 mg PO QHS 06/22/19 Ondansetron [Zofran Odt] 4 mg PO Q8H PRN PRN #10 tab 08/28/19 Oxycodone HCl 1 tab PO BID PRN PRN 09/19/19 omega-3 acid ethyl esters 1 gram capsule 2 cap PO BID #120 cap 10/06/19 diltiazem HCl 120 mg capsule,extended release 24 hr 120 mg PO DAILY #30 cap 10/20/19 levothyroxine 50 mcg tablet 50 mcg PO DAILY 11/06/19 Naproxen [Naprosyn] 250 - 500 mg PO Q8H PRN PRN #30 tab 11/18/19 Oxycodone HCl/Acetaminophen [Percocet 5-325] 1 - 2 tablet PO Q6H PRN PRN 7 Days #15 tablet 11/18/19 The following prescriptions were given: Naproxen [Naprosyn] 250 - 500 mg PO Q8H PRN PRN #30 tab PRN Reason: MILD PAIN Transmission Status: Pending to [facility] Oxycodone HCl/Acetaminophen [Percocet 5-325] 1 - 2 tablet PO Q6H PRN PRN 7 Days #15 tablet PRN Reason: Pain Transmission Status: Sent to [facility] Primary Care Physician: Bryant Cardona MD [Primary Care Provider] - Test Results: Test results from this visit will be discussed in further detail at your follow- up appointment, if applicable. Please Follow Up With: Britany Urena MD - [phone]
[2019-11-18] MEDS: Bupivacaine 0.25% 30 ML Vial (09:22)
[2019-11-18 10:06] LABS: Bedside Glucose 211 mg/dL (70-110)
== END 2019-11-18 13:38 | disposition home or self-care (01) ==
LOC: SDC 07:17 → AC 07:18
PROVIDERS: Anesthesiology; PCP Family Medicine; Referring Provider Obstetrics & Gynecology; Visit Provider Obstetrics & Gynecology
PROC: (CPT 58661; principal; 2019-11-18 08:40)
DX: Z30.2 Encounter for sterilization (principal); E11.9 Type 2 diabetes mellitus without complications; F32.9 Major depressive disorder, single episode, unspecified; E78.5 Hyperlipidemia, unspecified; I10 Essential (primary) hypertension; F41.9 Anxiety disorder, unspecified; E06.9 Thyroiditis, unspecified; Z11.59 Encounter for screening for other viral diseases; Z79.899 Other long term (current) drug therapy
CPT/HCPCS: 00840; 58661; 36415; 80053; 81025; 82962; 83690; 84443; 85027; 86850; 86870; 86900; 86901; 87635; 88302; 94799; J7120; J2405; U0003

== ENCOUNTER → 2019-12-01 | Outpatient (CLI) | payer MEDICAID, SELFPAY ==
[2019-12-01 15:20] VITALS: BMI 44.1
[2019-12-01 19:01] LABS: Anion Gap 8 (5-15); BUN 14 mg/dL (7-18); BUN/Creat Ratio 21.7 RATIO (10-20); Calcium,Total 8.6 mg/dL (8.5-10.1); Chloride 105 mmol/L (98-107); Cholesterol 249 mg/dL (200); Creatinine, Serum 0.64 mg/dL (0.55-1.02); EST Glomerular Filtration Rate 120 mL/min (>60); Est Glom Filt Rate - Afr Amer 145 mL/min (>60); Glucose 189 mg/dL (74-106); High Density Lipoprotein 28 mg/dL; Potassium 4.1 mmol/L (3.5-5.1); Sodium Level 136 mmol/L (136-145); T4 Free Direct 1.17 ng/dL (0.76-1.46); Thyroid Stim Hormone (TSH) 1.53 uIU/mL (0.358-3.74); Triglycerides 1852 mg/dL
== END | disposition home or self-care (01) ==
LOC: BIMLAB 15:44
PROVIDERS: PCP Family Medicine; Referring Provider Internal Medicine Endocrinology, Diabetes & Metabolism; Visit Provider Internal Medicine Endocrinology, Diabetes & Metabolism
DX: E78.1 Pure hyperglyceridemia (principal); E03.9 Hypothyroidism, unspecified; E11.9 Type 2 diabetes mellitus without complications
CPT/HCPCS: 36415; 80048; 80061; 84439; 84443

== ENCOUNTER 2020-03-06 20:59 | Emergency (ER) | payer MEDICAID, SELFPAY ==
[2019-12-09 10:56] VITALS: BMI 39.8
[2020-03-06 20:59] VITALS: BP 138/96; PULSE 118; RESP 16; TEMP 36; O2SAT 100; BMI 39.8
--- NOTE | 2020-03-06 21:08 | ED.VIS.GEN ---
History of Present Illness Chief Complaint: Abd Pain Detail of Chief Complaint: Upper abdominal pain with nausea Informant: Patient Onset: Hours Context: Sudden Onset Timing: Continuous Quality: Pain Location: Left upper quadrant greater than right Current Severity: Mild Maximum Severity: Moderate Worsened by: Eating Relieved by: Nothing Associated Symptoms: Nausea Narrative: Patient is a 24-year-old woman with history of pancreatitis due to elevated triglycerides who presents with upper abdominal pain similar to prior presentations with acute pancreatitis. Patient reports reaction to gadolinium. She denies fever, chills or night sweats. Denies weight loss or weight gain. She denies headache. She denies ocular, visual auditory symptoms. She denies rhinorrhea congestion sore throat. She had a cough for past week. She has no known ill contacts or known contacts with individuals positive for Covid. She denies diarrhea. Denies black or maroon stool. She denies no fat mixed with stool or noted in the toilet water. She denies bright red blood per rectum. She denies dysuria, frequency, urgency or hematuria. Prior similar symptoms: Yes - Acute pancreatitis Recent Illness/Hospitalization: No - Past Medical History (1) Acute on chronic pancreatitis Status: Acute (2) Depression Status: Chronic Comment: cassia, encourage counseling. (3) Hyperlipidemia Status: Chronic (4) Hypertension Status: Chronic (5) Hypertriglyceridemia Status: Chronic (6) Hypothyroidism (acquired) Status: Chronic (7) Obesity Status: Chronic (8) Paroxysmal atrial fibrillation Status: Chronic Comment: Diagnosed during hospitalization in July 2019; (9) Type 2 diabetes mellitus Status: Chronic Past Medical History - Allergies and Home Meds Allergies/Adverse Reactions: Allergies Gadolinium-MRI Contrast Medium [DYE] Allergy (Severe, Verified 03/06/20 21:01) KIDNEY FAILURE kidney failure hydromorphone [From Dilaudid] Allergy (Verified 03/06/20 21:01) Rash Primary Care Physician: Bryant Cardona MD [Primary Care Provider] - Prior records reviewed: Yes Surgical History: cholecystectomy, - Lives: Spouse/ Significant Other Smoking Status: Heavy Smoker (>10/day) Alcohol: None Drugs: None - Family History Maternal Family History: Family History (Last Reviewed 12/01/19 @ 15:22 by Eli Galvez) Mother Diabetes Grandmother Diabetes Grandfather Diabetes Father hyperlipidemia Unknown Depression Hypertension Family History: Reports: Diabetes Paternal Family History: Family History (Last Reviewed 12/01/19 @ 15:22 by Eli Galvez) Mother Diabetes Grandmother Diabetes Grandfather Diabetes Father hyperlipidemia Unknown Depression Hypertension Family History: Reports: Diabetes Review of Systems General: Denies: Chills, Fever, Malaise, Subjective, Sweats, Weight loss ENT: Denies: Bilateral ear pain, Rhinorrhea, Sore throat Cardiovascular: Denies: Chest pain, Palpitations Respiratory: Denies: Dyspnea, Cough, Dyspnea on exertion, Orthopnea, Paroxysmal nocturnal dyspnea Gastrointestinal: Reports: Abdominal pain, Nausea, Vomiting. Denies: Diarrhea, Constipation, Melena, Hematochezia Genitourinary: Denies: Dysuria, Hematuria, Frequency Musculoskeletal: Denies: Myalgias, Arthralgias, Neck pain, Back pain, Swelling, Extremity Pain Skin: Denies: Rash, Wounds Neurological: Denies: Headache, Weakness, Parasthesia Psych: Reports: Depression - History of Endocrine: Denies: Polyuria, Polydipsia Hematologic: Denies: Easy bruising Physical Exam Vital Signs/Narrative: Vital Signs Temp Pulse Resp BP Pulse Ox 03/06/20 20:59 96.8 F L 118 H 16 138/96 H 100 Inital Vital Signs reviewed: Yes General: Well nourished, Well developed, Obese Head: Normocephalic, Atraumatic Eyes: Perrl, EOMI. Negative for: Pale conjunctiva, Scleral icterus ENT: No rhinorrhea, TM's clear, Dry mucous membranes. Negative for: Sinus tenderness Neck: Supple, Nontender, No lymphadenopathy, No JVD Cardiovascular: Regular rhythm, No murmurs, Normal S1, Normal S2, Tachycardia Respiratory: No distress, CTA bilaterally, Chest nontender Abdomen: Soft, Nondistended, No masses, Tender, Guarding. Negative for: Nontender, Normal bowel sounds, Rebound tenderness, Hyperactive bowel sounds, Hypoactive bowel sounds, Hepatomegaly, Splenomegaly, Mass, Pulsatile mass Rectal: Deferred Back: Nontender, Normal Inspection Extremities: Nontender, No edema Skin: Normal color, No rash, No Trauma. Negative for: Cyanosis, Diaphoresis, Jaundice Neurological: Alert, Oriented x3, Cranial nerves II-XII grossly intact, Normal Strength, Normal Sensation Psychological: Normal affect Diagnostic/Tx/Re-eval - Medical Decision Making Review of prior records indicates that patient's lipase is elevated when she has pancreatitis. She has had numerous CAT scans which confirmed that she has pancreatitis. She received Zofran for her nausea and morphine for her discomfort. Appropriate labs were ordered. Frontal diagnosis would include peptic ulcer disease, hiatal hernia, acute on chronic pancreatitis. Lower lobe pneumonia is a consideration with upper abdominal pain however there are no auscultatory findings and she has no respiratory symptoms. Patient was reassessed at 2236. She states her pain is a or?5 presently. She was offered more pain medicine. She did receive 4 mg of morphine. She was informed that her test will take some time because of her high triglyceride level. She states she was aware. Nurse informed me that her blood pressure dropped significantly with morphine. She has received 1 L of normal saline. Since she is still hypotensive a second liter was ordered and the second dose of morphine was held. Disposition to be made by Dr. Last Wells once lab results are available for review. ED Disposition - Plan for ED Patient: Referrals: Bryant Cardona MD [Primary Care Provider] -
[2020-03-06] MEDS: 0.9% Normal Saline 1,000 ML 1000 ML IV (21:20)
[2020-03-06] MEDS: Morphine 4 MG/ML Syringe IV (21:20)
[2020-03-06] MEDS: Ondansetron 4 MG/2 ML Vial IV (21:20)
[2020-03-06 21:30] LABS: Absolute Lymphocyte Count 0.82 X10^3/uL (0.83-4.51); Absolute Neutrophil Count 2.5 X10^3/uL (2.0-7.7); Basophil# 0.02 X10^3/uL; Basophil% 0.6 % (0-1); Eosinophil# 0.05 X10^3/uL; Eosinophils% 1.4 % (0-5); Hematocrit 40.3 % (37-47); Hemoglobin 13.3 g/dL (12.0-15.0); Lymphocyte # 0.82 X10^3/ul (4.0); Lymphocyte % 22.7 % (19-41); Mean Corpuscular Hgb 26.3 pg (27.0-32.0); Mean Corpuscular Volume 79.8 fL (81-99); Mean Platelet Vol. 11.5 fl (6.2-12.0); Monocyte# 0.19 X10^3/uL; Monocyte% 5.3 % (0-10); NRBC Flagged by Analyzer 0 % (0-5); Neutrophil # 2.52 X10^3/uL (2.7-7.7); Neutrophil % 69.7 % (47-70); Platelet Count 180 K/mm3 (150-450); RBC Distribution Width CV 13.8 % (11.6-14.6); RBC Distribution Width SD 39.6 fl (35.1-43.9); Red Blood Count 5.05 M/mm3 (4.2-5.4); White Blood Count 3.6 K/mm3 (4.4-11.0)
[2020-03-06 21:36] VITALS: BP 94/57; PULSE 57; RESP 16
[2020-03-06 22:55] LABS: AST(SGOT) 58 U/L (15-37); Alanine Aminotransfer ALT/SGPT 71 U/L (13-56); Alkaline Phosphatase 79 U/L (45-117); Anion Gap 7 (5-15); BUN 9 mg/dL (7-18); BUN/Creat Ratio 9.7 RATIO (10-20); Bilirubin, Direct 0.09 mg/dL (0.00-0.30); Calcium,Total 8.2 mg/dL (8.5-10.1); Chloride 102 mmol/L (98-107); Creatinine, Serum 0.93 mg/dL (0.55-1.02); EST Glomerular Filtration Rate 79 mL/min (>60); Est Glom Filt Rate - Afr Amer 95 mL/min (>60); Estimated Creatinine Clearance 77.16 ml/min; Globulin 4.2 g/dL (2.2-4.2); Glucose 255 mg/dL (74-106); Lipase 375 U/L (73-393); Potassium 3.8 mmol/L (3.5-5.1); Protein, Total 8.2 g/dL (6.4-8.2); Sodium Level 134 mmol/L (136-145)
[2020-03-06 23:00] VITALS: BP 109/82; PULSE 72; RESP 17; O2SAT 100
--- NOTE | 2020-03-06 23:14 | ED.DCSUM_ITS ---
- ER Visit Summary Date of Service: 03/06/20 This patient was checked out to me with labs pending. Test Results: Abnormal Lab Results 03/06/20 03/06/20 21:15 21:15 WBC 3.6 L RBC 5.05 Hgb 13.3 Hct 40.3 MCV 79.8 L MCH 26.3 L MCHC 33.0 RDW Std Deviation 39.6 RDW Coeff of Varun 13.8 Plt Count 180 MPV 11.5 Immature Gran % (Auto) 0.300 Neut % (Auto) 69.7 Lymph % (Auto) 22.7 [place] % (Auto) 5.3 Eos % (Auto) 1.4 Baso % (Auto) 0.6 Absolute Neuts (auto) 2.5 Absolute Lymphs (auto) 0.82 L Nucleated RBC % 0 Sodium 134 L Potassium 3.8 Chloride 102 Carbon Dioxide 25.0 Anion Gap 7 BUN 9 Creatinine 0.93 Estim Creat Clear Calc 77.16 Est GFR (MDRD) Af Amer 95 Est GFR (MDRD) Non-Af 79 BUN/Creatinine Ratio 9.7 L Glucose 255 H Calcium 8.2 L Total Bilirubin 0.60 Direct Bilirubin 0.09 AST 58 H ALT 71 H Alkaline Phosphatase 79 Total Protein 8.2 Albumin 4.0 Globulin 4.2 Lipase 375 Emergency Department Course and Treatment: Patient was given morphine and IV fluids. She is resting more comfortably. Treatment Plan: I had a prolonged discussion the patient about her lipase being normal. However, with recurrent episodes of pancreatitis that this may be a false negative. She does not have any peritoneal signs and I do not feel that a CT is in her best interest. She will be discharged prescription for 12 Percocet. She states that she does not need nausea medicines at home. She is instructed to follow a clear liquid diet. Follow-up with her primary care ph ysician in 2 days if not improving. Return to the emergency department for any worsening symptoms. Disposition: To home in improved and stable condition. Impression: 1. Abdominal pain, uncertain cause. This note was generated with [employer] dictation software. It may contain incorrect words, spelling, and punctuation that were not noted in review of the chart prior to signing ED Disposition - Plan for ED Patient: Instructions: ED Abdominal Pain Unkn Cause Fem Prescriptions: Oxycodone HCl/Acetaminophen [Percocet 5/325] 1 tablet PO Q6H PRN PRN 3 Days #12 tablet PRN Reason: Pain Referrals: Bryant Cardona MD [Primary Care Provider] - 1-2 Days if not improving
[2020-03-06 23:22] VITALS: BP 109/82; PULSE 72; RESP 17; O2SAT 100
== END 2020-03-06 23:23 | disposition home or self-care (01) ==
LOC: ED 21:18
PROVIDERS: Emergency Provider Emergency Medicine; PCP Family Medicine
DX: R10.10 Upper abdominal pain, unspecified (principal); E78.5 Hyperlipidemia, unspecified; I10 Essential (primary) hypertension; E66.9 Obesity, unspecified; E11.9 Type 2 diabetes mellitus without complications; E03.9 Hypothyroidism, unspecified; F17.200 Nicotine dependence, unspecified, uncomplicated; Z79.4 Long term (current) use of insulin; Z79.899 Other long term (current) drug therapy
CPT/HCPCS: 80048; 80076; 83690; 85025; 96361; 96374; 96375; 99283; J2405

== ENCOUNTER → 2020-05-17 15:47 | Outpatient (CLI) | payer MEDICAID, SELFPAY ==
[2020-05-17 14:54] VITALS: BMI 41.8
[2020-05-17 17:19] LABS: Absolute Lymphocyte Count 1.42 X10^3/uL (0.83-4.51); Absolute Neutrophil Count 3.5 X10^3/uL (2.0-7.7); Basophil# 0.04 X10^3/uL; Basophil% 0.7 % (0-1); Eosinophil# 0.07 X10^3/uL; Eosinophils% 1.3 % (0-5); Hematocrit 35.1 % (37-47); Lymphocyte # 1.42 X10^3/ul (4.0); Lymphocyte % 26.4 % (19-41); Mean Corpuscular Hgb 30.1 pg (27.0-32.0); Mean Corpuscular Volume 81.3 fL (81-99); Mean Platelet Vol. 11.4 fl (6.2-12.0); Monocyte# 0.29 X10^3/uL; Monocyte% 5.4 % (0-10); NRBC Flagged by Analyzer 0 % (0-5); Neutrophil # 3.53 X10^3/uL (2.7-7.7); Neutrophil % 65.8 % (47-70); Platelet Count 195 K/mm3 (150-450); RBC Distribution Width CV 17.2 % (11.6-14.6); RBC Distribution Width SD 43.3 fl (35.1-43.9); Red Blood Count 4.32 M/mm3 (4.2-5.4); White Blood Count 5.4 K/mm3 (4.4-11.0)
[2020-05-17 18:00] LABS: Anion Gap 11 (5-15); BUN 11 mg/dL (7-18); BUN/Creat Ratio 12.2 RATIO (10-20); Calcium,Total 8.1 mg/dL (8.5-10.1); Chloride 98 mmol/L (98-107); EST Glomerular Filtration Rate 81 mL/min (>60); Est Glom Filt Rate - Afr Amer 98 mL/min (>60); Glucose 319 mg/dL (74-106); Lipase 190 U/L (73-393); Magnesium 1.7 mg/dL (1.6-2.6); Potassium 4.2 mmol/L (3.5-5.1); Sodium Level 133 mmol/L (136-145); T4 Free Direct 0.94 ng/dL (0.76-1.46); Thyroid Stim Hormone (TSH) 2.62 uIU/mL (0.358-3.74)
== END ==
PROVIDERS: PCP Family Medicine; Referring Provider Nurse Practitioner Family; Visit Provider Nurse Practitioner Family
DX: I48.0 Paroxysmal atrial fibrillation (principal); E11.9 Type 2 diabetes mellitus without complications; E78.5 Hyperlipidemia, unspecified; E78.1 Pure hyperglyceridemia; R00.2 Palpitations; Z87.19 Personal history of other diseases of the digestive system
CPT/HCPCS: 36415; 80048; 83690; 83735; 84439; 84443; 85025

== ENCOUNTER → 2020-05-18 12:26 | Outpatient (CLI) | payer MEDICAID, SELFPAY ==
[2020-05-17 14:54] VITALS: BMI 41.8
== END ==
PROVIDERS: PCP Family Medicine; Referring Provider Nurse Practitioner Family; Visit Provider Nurse Practitioner Family
DX: I48.0 Paroxysmal atrial fibrillation (principal); R00.2 Palpitations
CPT/HCPCS: 93225; 93226

== ENCOUNTER 2020-06-06 22:36 | Emergency (ER) | payer MEDICAID, SELFPAY ==
[2020-05-17 14:54] VITALS: BMI 41.8
[2020-06-06 22:37] VITALS: BP 153/95; PULSE 83; RESP 18; TEMP 36.6; O2SAT 98; BMI 40.8
--- NOTE | 2020-06-06 22:44 | ED.VIS.GEN ---
History of Present Illness Chief Complaint: Abd Pain Informant: Patient Onset: Days Context: Gradual Onset Timing: Continuous Current Severity: Moderate Maximum Severity: Severe Narrative: The patient is a 24-year-old female medical history significant for high triglycerides and recurrent pancreatitis who presents concerned that she may have pancreatitis. The patient states that about a week ago, she began to have midepigastric pain and slight pain into her back. She followed with her primary care and had outpatient labs done. Her lipase was mildly elevated. She was told to adjust her diet and reasons to return. She states over the past 3 days, the pain is worsened. She states now stabbing in her mid abdomen into her back. She has been nauseated without vomiting. She denies any fevers or chills. She states this feels very similar to pancreatitis she is had in the past. She does have history of prior cholecystectomy and tubal ligation. Prior similar symptoms: Yes Recent Illness/Hospitalization: No Past Medical History - Allergies and Home Meds Allergies/Adverse Reactions: Allergies Gadolinium-MRI Contrast Medium [DYE] Allergy (Severe, Verified 05/17/20 14:53) KIDNEY FAILURE kidney failure hydromorphone [From Dilaudid] Allergy (Verified 05/17/20 14:53) Rash Primary Care Physician: rByant Cardona MD [Primary Care Provider] - Prior records reviewed: Yes Past Medical History: - - High triglycerides, recurrent pancreatitis Surgical History: cholecystectomy, - Smoking Status: Heavy Smoker (>10/day) - Family History Maternal Family History: Family History (Last Reviewed 12/01/19 @ 15:22 by Eli Galvez) Mother Diabetes Grandmother Diabetes Grandfather Diabetes Father hyperlipidemia Unknown Depression Hypertension Family History: Reports: Diabetes Paternal Family History: Family History (Last Reviewed 12/01/19 @ 15:22 by Eli Galvez) Mother Diabetes Grandmother Diabetes Grandfather Diabetes Father hyperlipidemia Unknown Depression Hypertension Family History: Reports: Diabetes Review of Systems General: Denies: Chills, Fever, Sweats Eyes: Denies: Visual changes - bilaterally, Diplopia ENT: Denies: Rhinorrhea, Sore throat Cardiovascular: Denies: Chest pain, Palpitations Respiratory: Denies: Dyspnea, Cough, Dyspnea on exertion Gastrointestinal: Reports: Abdominal pain, Nausea. Denies: Vomiting, Diarrhea, Melena, Hematochezia Genitourinary: Denies: Dysuria, Hematuria, Frequency Musculoskeletal: Reports: Back pain. Denies: Extremity Pain Skin: Denies: Rash, Wounds Neurological: Denies: Headache, Weakness, Numbness Physical Exam Vital Signs/Narrative: Vital Signs Temp Pulse Resp BP Pulse Ox 06/06/20 22:37 97.9 F 83 18 153/95 H 98 Inital Vital Signs reviewed: Yes General: Well nourished, Well developed, No Acute Distress Head: Normocephalic, Atraumatic Eyes: Perrl, EOMI ENT: Moist mucous membranes, No rhinorrhea Neck: Supple, Nontender Cardiovascular: Regular rate, Regular rhythm, No murmurs Respiratory: No distress, CTA bilaterally, Chest nontender Abdomen: Soft, Nontender, Nondistended, Normal bowel sounds Back: Nontender, Normal Inspection Extremities: Nontender, No edema Skin: Normal color, No rash Neurological: Alert, Oriented x3, Cranial nerves II-XII grossly intact, Normal Strength, Normal Sensation Psychological: Normal affect, Normal Mood Diagnostic/Tx/Re-eval Clinical Impression(s) from Imaging Studies Abdomen/Pelvis CT 06/07/20 00:46 IMPRESSION: No acute findings in the abdomen or pelvis. Right ovarian cyst probably representing a physiologic cyst. This can be followed after 2-3 menstrual cycles with ultrasound. Hepatomegaly with fatty liver unchanged. Splenomegaly unchanged. No hydronephrosis or urinary tract stones. Electronically Signed: Chencho Valladares MD at 2:19 EDT , Service support , Clinical Impression(s) from Imaging Studies Abdomen/Pelvis CT 06/07/20 00:46 IMPRESSION: No acute findings in the abdomen or pelvis. Right ovarian cyst probably representing a physiologic cyst. This can be followed after 2-3 menstrual cycles with ultrasound. Hepatomegaly with fatty liver unchanged. Splenomegaly unchanged. No hydronephrosis or urinary tract stones. Electronically Signed: Chencho Valladares MD at 2:19 EDT , Service support , Abnormal Lab Results 06/06/20 06/06/20 06/06/20 23:05 23:05 23:05 WBC 7.2 RBC 4.75 Hgb 12.6 Hct 37.2 MCV 78.3 L MCH 26.5 L MCHC 33.9 RDW Std Deviation 41.8 RDW Coeff of Varun 14.6 Plt Count 211 MPV 10.9 Immature Gran % (Auto) 1.300 H Neut % (Auto) 63.9 Lymph % (Auto) 26.7 [place] % (Auto) 6.7 Eos % (Auto) 0.8 Baso % (Auto) 0.6 Absolute Neuts (auto) 4.6 Absolute Lymphs (auto) 1.92 Nucleated RBC % 0 Sodium 134 L Potassium 3.9 Chloride 101 Carbon Dioxide 18.0 L Anion Gap 15 BUN 23 H Creatinine 0.90 Estim Creat Clear Calc 79.73 Est GFR (MDRD) Af Amer 99 Est GFR (MDRD) Non-Af 82 BUN/Creatinine Ratio 25.7 H Glucose 245 H Calcium 9.3 Total Bilirubin 0.60 AST 46 H ALT 60 H Alkaline Phosphatase 70 Total Protein 8.7 H Albumin 3.8 Globulin 4.9 H Albumin/Globulin Ratio 0.8 L Amylase 19 L Lipase 217 Serum , Qual NEGATIVE Urine Color Urine Clarity Urine pH Ur Specific [place] Urine Protein Urine Glucose (UA) Urine Ketones Urine Occult Blood Urine Nitrite Urine Bilirubin Urine Urobilinogen Ur Leukocyte Esterase Urine RBC Urine WBC Ur Squamous Epith Cells Urine Bacteria Urine Mucus 06/07/20 00:50 WBC RBC Hgb Hct MCV MCH MCHC RDW Std Deviation RDW Coeff of Varun Plt Count MPV Immature Gran % (Auto) Neut % (Auto) Lymph % (Auto) [place] % (Auto) Eos % (Auto) Baso % (Auto) Absolute Neuts (auto) Absolute Lymphs (auto) Nucleated RBC % Sodium Potassium Chloride Carbon Dioxide Anion Gap BUN Creatinine Estim Creat Clear Calc Est GFR (MDRD) Af Amer Est GFR (MDRD) Non-Af BUN/Creatinine Ratio Glucose Calcium Total Bilirubin AST ALT Alkaline Phosphatase Total Protein Albumin Globulin Albumin/Globulin Ratio Amylase Lipase Serum , Qual Urine Color Yellow Urine Clarity Clear Urine pH 6.0 Ur Specific [place] 1.020 Urine Protein 100 H Urine Glucose (UA) Normal Urine Ketones Negative Urine Occult Blood Negative Urine Nitrite Negative Urine Bilirubin Negative Urine Urobilinogen Normal Ur Leukocyte Esterase 100 H Urine RBC 0 SEEN Urine WBC 5-10 SEEN Ur Squamous Epith Cells 0-5 SEEN Urine Bacteria 0 SEEN Urine Mucus 0 SEEN - Medical Decision Making Patient presents with mid abdominal pain into her back. She states it also goes into her flanks. She does have history of recurrent pancreatitis and states this feels similar. Metabolic work-up was pursued. Labs are unremarkable. Lipase and amylase were both negative. Patient was given analgesics with some improvement. She was concerned that she may have a kidney stone. Her urine did not show significant blood. With her history, I did obtain noncontrast imaging as she does have allergy to IV contrast. The pancreas is identified and is normal. There is no obstructive process. She has a small ovarian cyst, but no evidence of rupture. On reevaluation, she is resting comfortably. Not sure if this is early pancreatitis that is just not acutely visualized, versus a chronic process. I will give the patient a short course of analgesics and appropriate outpatient follow-up. Impression 1. Abdominal pain 2. History of pancreatitis ED Disposition - Plan for ED Patient: Instructions: ED Abdominal Pain Unkn Cause Fem Prescriptions: Hydrocodone Bitart/Apap 5-325 [[place] 5MG-325MG] 1 tablet PO Q6H PRN PRN 3 Days #10 tab PRN Reason: Pain Prescription Printed Ondansetron [Zofran Odt] 4 mg PO Q8H PRN PRN #10 tablet PRN Reason: Nausea Prescription Printed Referrals: Bryant Cardona MD [Primary Care Provider] -
[2020-06-06] MEDS: Ondansetron 4 MG/2 ML Vial IV (23:04)
[2020-06-06] MEDS: fentaNYL 100 MCG/2 ML Ampul 50 MCG IV (23:04)
[2020-06-06] MEDS: 0.9% Normal Saline 1,000 ML 1000 ML IV (23:05)
[2020-06-06 23:22] LABS: Internal QC Validated? YES +Cl - CLEAR BKGD; Pregnancy, Serum, hCG Quali. NEGATIVE Negative
[2020-06-06 23:25] LABS: Absolute Lymphocyte Count 1.92 X10^3/uL (0.83-4.51); Absolute Neutrophil Count 4.6 X10^3/uL (2.0-7.7); Basophil# 0.04 X10^3/uL; Basophil% 0.6 % (0-1); Eosinophil# 0.06 X10^3/uL; Eosinophils% 0.8 % (0-5); Hematocrit 37.2 % (37-47); Hemoglobin 12.6 g/dL (12.0-15.0); Lymphocyte # 1.92 X10^3/ul (4.0); Lymphocyte % 26.7 % (19-41); Mean Corp Hgb Conc 33.9 g/dL (32-36); Mean Corpuscular Hgb 26.5 pg (27.0-32.0); Mean Corpuscular Volume 78.3 fL (81-99); Mean Platelet Vol. 10.9 fl (6.2-12.0); Monocyte# 0.48 X10^3/uL; Monocyte% 6.7 % (0-10); NRBC Flagged by Analyzer 0 % (0-5); Neutrophil % 63.9 % (47-70); Platelet Count 211 K/mm3 (150-450); RBC Distribution Width CV 14.6 % (11.6-14.6); RBC Distribution Width SD 41.8 fl (35.1-43.9); Red Blood Count 4.75 M/mm3 (4.2-5.4); White Blood Count 7.2 K/mm3 (4.4-11.0)
[2020-06-06 23:51] LABS: ALB/GLOB Ratio 0.8 RATIO (0.9-2.4); AST(SGOT) 46 U/L (15-37); Alanine Aminotransfer ALT/SGPT 60 U/L (13-56); Albumin, Serum 3.8 g/dL (3.2-5.0); Alkaline Phosphatase 70 U/L (45-117); Amylase 19 U/L (25-115); Anion Gap 15 (5-15); BUN 23 mg/dL (7-18); BUN/Creat Ratio 25.7 RATIO (10-20); Calcium,Total 9.3 mg/dL (8.5-10.1); Chloride 101 mmol/L (98-107); EST Glomerular Filtration Rate 82 mL/min (>60); Est Glom Filt Rate - Afr Amer 99 mL/min (>60); Estimated Creatinine Clearance 79.73 ml/min; Globulin 4.9 g/dL (2.2-4.2); Glucose 245 mg/dL (74-106); Lipase 217 U/L (73-393); Potassium 3.9 mmol/L (3.5-5.1); Protein, Total 8.7 g/dL (6.4-8.2); Sodium Level 134 mmol/L (136-145)
[2020-06-07] MEDS: fentaNYL 100 MCG/2 ML Ampul 50 MCG IV (00:39)
[2020-06-07] MEDS: 0.9% Normal Saline 1,000 ML 999 ML IV (00:39)
--- NOTE | 2020-06-07 00:46 | CT_ITS ---
STUDY: CT ABDOMEN AND PELVIS WITHOUT CONTRAST REASON FOR EXAM: Female, 24 years old. Flank pain. RADIATION DOSAGE (If Supplied By Facility): CTDIvol = ( 19.00 ) mGy, DLP = ( 944.60 ) mGycm TECHNIQUE: Axial CT images of the abdomen and pelvis were obtained without IV contrast administration. Multiplanar reconstructions. The protocol utilizes one or more of the following dose reduction techniques: automated exposure control, adjustment of mA and/or kV according to patient size, and/or use of iterative reconstruction technique. COMPARISON: October 03, 2019. FINDINGS: Lower Chest Lungs: Normal. Heart: Normal. Ribs: Normal. Organs / Endocrine Liver: Hepatic steatosis with hepatomegaly. Liver measures 25 cm in craniocaudad dimension. Gallbladder / Biliary Tree: Status post cholecystectomy with metallic clips in the gallbladder fossa. Pancreas: Normal. Spleen: Splenomegaly. Spleen measures 19 cm in craniocaudad dimension. Adrenal Glands: Normal. Peritoneum Fluid Collections: None. Free Air: No intra-abdominal free air. Intestinal Tract Stomach: Normal. Small Intestine: Normal. Appendix: Non-visualization of the appendix. Appearance of the abdomen does not suggest acute appendicitis. Colon: Normal. Urinary System Kidney (right): Normal. Kidney (left): Normal. Ureter (right): Normal. Ureter (left): Normal. Bladder: Normal. Reproductive Organs Uterus grossly normal. 4.5 cm right ovarian cyst. No free fluid in the cul-de-sac. Vessels Aorta: Normal. Inferior Vena Cava: Normal. Iliac Arteries: Normal. Lymph Nodes Retroperitoneal: Normal. Iliac / Inguinal: Normal. Mesenteric: Non-visualized. Bones Vertebrae: Normal. Pelvis / Sacrum: Normal. Abdominal Wall / Inguinal Region Defect: None. Hernia: None. CT/Abdomen/Pelvis without Cont IMPRESSION: No acute findings in the abdomen or pelvis. Right ovarian cyst probably representing a physiologic cyst. This can be followed after 2-3 menstrual cycles with ultrasound. Hepatomegaly with fatty liver unchanged. Splenomegaly unchanged. No hydronephrosis or urinary tract stones. Electronically Signed: Chencho Valladares MD at 2:19 EDT , Service support ,
[2020-06-07 00:55] LABS: Bacteria 0 SEEN /hpf (None Seen); Color, Urine Yellow (Yellow); Glucose, Dipstick Normal (Normal); Ketone-Dipstick Negative (Negative); Leukocyte Esterase-Dipstick 100 /ul (Negative); Mucous, Urine 0 SEEN /hpf (<or=2+); Nitrite-Dipstick Negative (Negative); Occult Blood-Urine Negative /ul (Negative); Protein-Dipstick 100 mg/dl (Negative); Red Blood Cells-Urine 0 SEEN /hpf (0-5); Urine Bilirubin Dipstick Negative (Negative); Urine Clarity Clear (Clear); Urine Urobilinogen Normal (Normal)
[2020-06-07 01:01] LABS: Squamous Epithelial Cells - UA 0-5 SEEN /hpf (5-10); White Blood Cells 5-10 SEEN /hpf (0-5)
[2020-06-07 02:30] VITALS: BP 139/89; PULSE 70; RESP 16; O2SAT 98
== END 2020-06-07 02:32 | disposition home or self-care (01) ==
LOC: ED 23:00
PROVIDERS: Emergency Provider Emergency Medicine; PCP Family Medicine
DX: R10.9 Unspecified abdominal pain (principal); K86.1 Other chronic pancreatitis; F17.200 Nicotine dependence, unspecified, uncomplicated
CPT/HCPCS: 74176; 80053; 81001; 82150; 83690; 84703; 85025; 96361; 96374; 96375; 96376; 99283; J7030; A4216; J2405

== ENCOUNTER 2020-06-08 15:58 | Emergency (ER) | payer MEDICAID, SELFPAY ==
[2020-06-08 15:58] VITALS: BP 150/105; PULSE 79; RESP 15; TEMP 36.2; O2SAT 97; BMI 39.6
--- NOTE | 2020-06-08 16:31 | ED.DCSUM_ITS ---
History of Present Illness Chief Complaint: Abd Pain Informant: Patient - Abdominal Pain/Flank Pain Onset: Weeks - 3 Context: Gradual Onset Timing: Continuous Quality: Dull Location: Diffuse - periumbilical, mostly upper, w/ radiation into the mid back Current Severity: Severe Maximum Severity: Severe - Nausea/Vomiting/Emesis GI Symptom: Nausea, Vomiting Onset: Today Quality: Nonbilious. Negative for: Blood streaks, Coffee ground, Hematemesis Severity: Moderate - Diarrhea/Melena/Hematochezia GI Symptom: Negative for: Diarrhea, Melena, Hematochezia Associated Symptoms: Negative for: Dysuria, Frequency, Hematuria, Urgency Narrative: Patient was seen here 2 days ago for similar symptoms, she has a history of recurrent pancreatitis that she states is due to hypertriglyceridemia, for which she is on medication now and compliant with it. She does not drink alcohol. She states she has continued to have abdominal pain radiating into her back, the symptoms just continue to get worse, pain medication she is taking is not helping, and now she is vomiting. She denies having any new symptoms compared to 2 days ago except for just severity of them is increased. Prior similar symptoms: Yes - recurrent pancreatitis - Past Medical History (1) Depression Status: Chronic Comment: congt, encourage counseling. (2) History of pancreatitis Status: Chronic Comment: monitor PRN (3) Hyperlipidemia Status: Chronic (4) Hypertension Status: Chronic (5) Hypertriglyceridemia Status: Chronic (6) Hypothyroidism (acquired) Status: Chronic (7) Paroxysmal atrial fibrillation Status: Chronic Comment: Diagnosed during hospitalization in July 2019; (8) Type 2 diabetes mellitus Status: Chronic Past Medical History - Allergies and Home Meds Allergies/Adverse Reactions: Allergies Gadolinium-MRI Contrast Medium [DYE] Allergy (Severe, Verified 06/08/20 16:00) KIDNEY FAILURE kidney failure hydromorphone [From Dilaudid] Allergy (Verified 06/08/20 16:00) Rash Primary Care Physician: Bryant Cardona MD [Primary Care Provider] - Surgical History: cholecystectomy, - - BTL Smoking Status: Never smoker Alcohol: None - Family History Maternal Family History: Family History (Last Reviewed 12/01/19 @ 15:22 by Eli Galvez) Mother Diabetes Grandmother Diabetes Grandfather Diabetes Father hyperlipidemia Unknown Depression Hypertension Family History: Reports: Diabetes Paternal Family History: Family History (Last Reviewed 12/01/19 @ 15:22 by Eli Galvez) Mother Diabetes Grandmother Diabetes Grandfather Diabetes Father hyperlipidemia Unknown Depression Hypertension Family History: Reports: Diabetes Review of Systems General: Reports: Malaise. Denies: Chills, Fever, Sweats Eyes: Denies: Visual changes - bilaterally, Diplopia ENT: Denies: Rhinorrhea, Sore throat Cardiovascular: Denies: Chest pain, Palpitations Respiratory: Denies: Dyspnea, Cough, Dyspnea on exertion Gastrointestinal: Reports: Abdominal pain, Nausea, Vomiting. Denies: Diarrhea, Melena, Hematochezia Genitourinary: Denies: Dysuria, Hematuria, Frequency Musculoskeletal: Reports: Back pain. Denies: Extremity Pain Skin: Denies: Rash, Wounds Neurological: Denies: Headache, Weakness, Numbness Physical Exam Vital Signs/Narrative: Vital Signs Temp Pulse Resp BP Pulse Ox 06/08/20 15:58 97.1 F L 79 15 150/105 H 97 Inital Vital Signs reviewed: Yes General: Well nourished, Well developed, Obese, No Acute Distress Head: Normocephalic, Atraumatic Eyes: Perrl, EOMI ENT: Moist mucous membranes, No rhinorrhea Neck: Supple, Nontender Cardiovascular: Regular rate, Regular rhythm, No murmurs Respiratory: No distress, CTA bilaterally, Chest nontender Abdomen: Soft, Nondistended, Tender - midepigast and supraumbilical; less in upper quads; nontender throughout pelvis/lower abd, Hypoactive bowel sounds. Negative for: Guarding, Rebound tenderness Back: Nontender, Normal Inspection. Negative for: CVA tenderness Extremities: Nontender, No edema. Negative for: Calf Tenderness Skin: Normal color, No rash, No Trauma Neurological: Alert, Oriented x3, Cranial nerves II-XII grossly intact, Normal Strength, Normal Sensation, Normal Gait Psychological: Normal affect, Normal Mood Diagnostic/Tx/Re-eval Laboratory Results 06/08/20 06/08/20 06/08/20 16:10 16:10 17:15 WBC 6.2 RBC 4.97 Hgb 12.6 Hct 38.5 MCV 77.5 L MCH 25.4 L MCHC 32.7 RDW Std Deviation 41.5 RDW Coeff of Varun 15.1 H Plt Count 208 MPV 11.1 Immature Gran % (Auto) 0.200 Neut % (Auto) 71.0 H Lymph % (Auto) 22.9 Boyle % (Auto) 4.8 Eos % (Auto) 0.6 Baso % (Auto) 0.5 Absolute Neuts (auto) 4.4 Absolute Lymphs (auto) 1.42 Nucleated RBC % 0 Sodium 134 L Potassium 4.1 Chloride 103 Carbon Dioxide 18.0 L Anion Gap 13 BUN 10 Creatinine 0.84 Estim Creat Clear Calc 85.43 Est GFR (MDRD) Af Amer 106 Est GFR (MDRD) Non-Af 88 BUN/Creatinine Ratio 11.9 Glucose 160 H Calcium 8.6 Total Bilirubin 0.60 AST 51 H ALT 66 H Alkaline Phosphatase 67 Total Protein 8.6 H Albumin 3.9 Globulin 4.7 H Albumin/Globulin Ratio 0.8 L Lipase 128 Urine Color Yellow Urine Clarity Clear Urine pH 5.0 Ur Specific [place] 1.025 Urine Protein 100 H Urine Glucose (UA) Normal Urine Ketones 5 H Urine Occult Blood Negative Urine Nitrite Negative Urine Bilirubin Negative Urine Urobilinogen Normal Ur Leukocyte Esterase 100 H Urine RBC 0 SEEN Urine WBC 5-10 SEEN Ur Squamous Epith Cells 0-5 SEEN Urine Bacteria RARE Urine Mucus 0 SEEN - Medical Decision Making Patient's labs are still unremarkable except for a mildly low sodium and bicarb. Her lipase is normal as it was the other day. She had a CT yesterday that showed no acute abnormalities and that she had a prior cholecystectomy. Her liver enzymes are within normal limits and she has no sign of any biliary obstruction on that imaging and her pain has been present for weeks. She has no leukocytosis. It is possible this is functional GI-related pain, which is difficult to diagnose the etiology of in the emergency department. I do not think any other imaging studies will be helpful emergently to rule out emergent life-threatening process, which I do not think she has. Her test was negative a couple days ago so I do not think that had to be repeated. Her urinalysis shows a small amount of leukocyte esterace and a few white blood cells but in my opinion I do not think this represents an acute infection. She was given medication to treat her symptoms, she asked for more so I included Bentyl and Toradol at the next dosing. She is comfortable as she is getting these medications, understands these explanations and the plan of discharge home with close outpatient follow-up. Prescribed dicyclomine to use as needed, she is already on a PPI. ED Disposition - Plan for ED Patient: Disposition: Home or Assisted Living Diagnosis: Periumbilical abdominal pain Instructions: ED Abdominal Pain Unkn Cause Fem Prescriptions: Dicyclomine HCl 20 mg PO Q4H PRN #20 tablet PRN Reason: abdominal pain Transmission Status: Pending to [id number] proMETHazine tablet [Phenergan] 25 mg PO Q6H PRN PRN #14 tab PRN Reason: Nausea Transmission Status: Pending to [id number] Referrals: Bryant Cardona MD [Primary Care Provider] - 3-5 Days if not improving
[2020-06-08 16:40] LABS: Absolute Lymphocyte Count 1.42 X10^3/uL (0.83-4.51); Absolute Neutrophil Count 4.4 X10^3/uL (2.0-7.7); Basophil# 0.03 X10^3/uL; Basophil% 0.5 % (0-1); Eosinophil# 0.04 X10^3/uL; Eosinophils% 0.6 % (0-5); Hematocrit 38.5 % (37-47); Hemoglobin 12.6 g/dL (12.0-15.0); Lymphocyte # 1.42 X10^3/ul (4.0); Lymphocyte % 22.9 % (19-41); Mean Corp Hgb Conc 32.7 g/dL (32-36); Mean Corpuscular Hgb 25.4 pg (27.0-32.0); Mean Corpuscular Volume 77.5 fL (81-99); Mean Platelet Vol. 11.1 fl (6.2-12.0); Monocyte% 4.8 % (0-10); NRBC Flagged by Analyzer 0 % (0-5); Platelet Count 208 K/mm3 (150-450); RBC Distribution Width CV 15.1 % (11.6-14.6); RBC Distribution Width SD 41.5 fl (35.1-43.9); Red Blood Count 4.97 M/mm3 (4.2-5.4); White Blood Count 6.2 K/mm3 (4.4-11.0)
[2020-06-08] MEDS: Morphine 4 MG/ML Syringe IV ×2 (16:41→18:15)
[2020-06-08] MEDS: 0.9% Normal Saline 1,000 ML 1000 ML IV (16:41)
[2020-06-08] MEDS: Ondansetron 4 MG/2 ML Vial IV (16:41)
[2020-06-08 17:25] LABS: Mucous, Urine 0 SEEN /hpf (<or=2+); Red Blood Cells-Urine 0 SEEN /hpf (0-5)
[2020-06-08 17:43] LABS: ALB/GLOB Ratio 0.8 RATIO (0.9-2.4); AST(SGOT) 51 U/L (15-37); Alanine Aminotransfer ALT/SGPT 66 U/L (13-56); Albumin, Serum 3.9 g/dL (3.2-5.0); Alkaline Phosphatase 67 U/L (45-117); Anion Gap 13 (5-15); BUN 10 mg/dL (7-18); BUN/Creat Ratio 11.9 RATIO (10-20); Calcium,Total 8.6 mg/dL (8.5-10.1); Chloride 103 mmol/L (98-107); Creatinine, Serum 0.84 mg/dL (0.55-1.02); EST Glomerular Filtration Rate 88 mL/min (>60); Est Glom Filt Rate - Afr Amer 106 mL/min (>60); Estimated Creatinine Clearance 85.43 ml/min; Globulin 4.7 g/dL (2.2-4.2); Glucose 160 mg/dL (74-106); Lipase 128 U/L (73-393); Potassium 4.1 mmol/L (3.5-5.1); Protein, Total 8.6 g/dL (6.4-8.2); Sodium Level 134 mmol/L (136-145)
[2020-06-08 17:47] LABS: Color, Urine Yellow (Yellow); Glucose, Dipstick Normal (Normal); Ketone-Dipstick 5 mg/dl (Negative); Leukocyte Esterase-Dipstick 100 /ul (Negative); Nitrite-Dipstick Negative (Negative); Occult Blood-Urine Negative /ul (Negative); Protein-Dipstick 100 mg/dl (Negative); Specific Gravity, Urine 1.025 (1.002-1.030); Urine Bilirubin Dipstick Negative (Negative); Urine Clarity Clear (Clear); Urine Urobilinogen Normal (Normal)
[2020-06-08 18:02] LABS: Bacteria RARE /hpf (None Seen); Squamous Epithelial Cells - UA 0-5 SEEN /hpf (5-10); White Blood Cells 5-10 SEEN /hpf (0-5)
[2020-06-08] MEDS: Ketorolac 30 MG/ML Syringe IV (18:15)
[2020-06-08] MEDS: Dicyclomine 20 MG/2 ML Vial IM (18:18)
[2020-06-08 18:51] VITALS: BP 134/94
--- NOTE | 2020-06-08 18:53 | ED.RN ---
approx 750 ml left in IV fluids
== END 2020-06-08 18:53 | disposition home or self-care (01) ==
PROVIDERS: Emergency Provider Emergency Medicine; PCP Family Medicine
DX: R10.33 Periumbilical pain (principal); K86.1 Other chronic pancreatitis; E78.5 Hyperlipidemia, unspecified; I10 Essential (primary) hypertension; E11.9 Type 2 diabetes mellitus without complications; E66.9 Obesity, unspecified
CPT/HCPCS: 36415; 80053; 81001; 83690; 85025; 96361; 96372; 96374; 96375; 96376; 99284; J7030; A4216; J2405

== ENCOUNTER 2020-07-14 23:13 | Emergency (ER) | payer MEDICAID, SELFPAY ==
[2020-07-14 23:14] VITALS: BP 152/98; PULSE 86; RESP 18; TEMP 35.5; O2SAT 96; BMI 40.2
--- NOTE | 2020-07-14 23:36 | EDS_ITS ---
HPI HPI - GI History of Present Illness Chief Complaint: Abd Pain Informant: patient Abdominal Pain/Flank Pain Onset: Month(s) (2 mos, around May 17) Context: Gradual Onset Timing: Waxes and wanes Quality: Dull (like someone punching me over and over) Location: Epigastric (w/ occasional radiation into mid-low back) Current Severity: Severe Maximum Severity: Severe Worsened by: Food (tonight after eating one bite of baked potato) Relieved by: Nothing Nausea/Vomiting/Emesis GI Symptom: Positive for Nausea and Vomiting (once tonight) Onset: Today Quality: Positive for Nonbilious; Negative for Blood streaks, Coffee ground and Hematemesis Diarrhea/Melena/Hematochezia GI Symptom: Negative for Diarrhea, Melena and Hematochezia Associated Symptoms Associated Symptoms: Negative for Dysuria, Frequency and Hematuria Narrative Narrative: Patient has had several visits for similar pain in the past month, I saw her about 5 weeks ago for the same symptoms, she states that this is all due to recurrent pancreatitis due to hypertriglyceridemia, she states she is seeing a triglyceride/lipid specialist Dr. Sullivan at [facility] who is following her for this, they are treating her triglycerides but she states they were just measured again and are 4700 which is extremely high. She states oftentimes her lipase is normal but she continues to have this pain, which was the case when I saw her 5 weeks ago. She has appointments in July and August with other specialists at [facility] in order to be evaluated for bariatric surgery which the think may help with some of her issues. In the last month or 2 she has been having the symptoms fairly constantly, but the severity waxes and wanes. She has been drinking fluids but eating very little. She had a bite of big potato tonight and flared up all of her symptoms. She denies any new symptoms like fevers, chills, shortness of breath, cough, chest pain. [facility] Medical History (Updated 07/15/20 @ 01:[address] Hamlet Caro MD) A-fib Depression High triglycerides HTN (hypertension) Hx of transfusion of whole blood Hyperlipidemia Pancreatitis Pancreatitis Home Medications sertraline 100 mg tablet 150 mg PO QHS 01/06/19 [History Last Taken 09/30/19] omeprazole 40 mg PO QHS 06/22/19 [History Last Taken 09/30/19] ondansetron 4 mg PO Q8H PRN PRN #10 tab 08/28/19 [Rx Last Taken 10/01/19] omega-3 acid ethyl esters 1 gram capsule 2 cap PO BID #120 cap 10/06/19 [Rx Last Taken Unknown] levothyroxine 50 mcg tablet 50 mcg PO DAILY #30 tab 11/27/19 [Rx Last Taken Unknown] fenofibrate 50 mg capsule 200 mg PO DAILY cap 12/01/19 [History Last Taken Unknown] pen needle, diabetic 30 gauge x 08/01 #100 ea 12/28/19 [Rx Last Taken Unknown] diltiazem HCl 120 mg capsule,extended release 24 hr 120 mg PO DAILY #30 cap 05/17/20 [Rx Last Taken Unknown] ondansetron 4 mg PO Q8H PRN PRN #10 tablet 06/07/20 [Rx Last Taken Unknown] promethazine 25 mg PO Q6H PRN PRN #14 tab 06/08/20 [Rx Last Taken Unknown] insulin NPH isoph U-100 human [Humulin N NPH Insulin KwikPen] 14 unit SC BID 07/14/20 [History Last Taken Unknown] rosuvastatin [Crestor] 40 mg PO DAILY 07/14/20 [History Last Taken Unknown] Allergy/AdvReac Type Severity Reaction Status Date / Time Gadolinium-MRI Contrast Allergy Severe KIDNEY Verified 07/14/20 23:16 Medium FAILURE [DYE] hydromorphone [From Dilaudid] Allergy Rash Verified 07/14/20 23:16 Family History Mother Diabetes Grandmother Diabetes Grandfather Diabetes Father hyperlipidemia Unknown Depression Hypertension Surgical History (Updated 03/06/20 @ 21:[address] 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) ROS ROS ED Constitutional Constitutional ED: Denies chills or fever(s) Eyes Eyes: Denies change in vision or diplopia ENT ENT ED: Denies rhinorrhea or sore throat Cardiovascular Cardiovascular: Denies chest pain or palpitations Respiratory/Chest Respiratory/Chest: Denies cough or dyspnea Gastrointestinal Gastrointestinal: Reports abdominal pain, nausea and vomiting; Denies diarrhea or melena Genitourinary Genitourinary ED: Denies dysuria or hematuria Musculoskeletal Musculoskeletal: Reports back pain; Denies extremity pain or neck pain Integumentary Denies abscess or rash Neurologic Neurologic: Denies headache(s), paresthesias or weakness Psychiatric Psychiatric: Denies anxiety or depression EXAM Physical Exam Const Vital Signs: 07/14/20 23:14 07/15/20 01:30 Temperature 96 F L Temperature Source Temporal Pulse Rate 86 85 Respiratory Rate 18 18 Blood Pressure 152/98 H 117/83 H Blood Pressure Mean 116 94 Pulse Ox 96 95 Oxygen Delivery Method Room Air Room Air Positive well nourished, well developed and obese Constitutional Narrative: uncomfortable General Appearance ED: well developed and NAD Nutritional Appearance: obese HEENT Reports moist mucous membranes normocephalic and atraumatic Eyes PERRL and EOMs intact bilaterally Neck no lymphadenopathy and supple Resp normal respiratory effort and clear to auscultation bilaterally Cardio regular rate, regular rhythm and no murmurs Rate: Negative for tachycardic GI normal to inspection, nondistended, normoactive bowel sounds, soft to palpation and non-distended Palpation: soft and tender epigastric (nontender elsewhere) Back/Spine no CVA tenderness General Back: other FROM Extremity normal to inspection General Extremety ED: Negative for edema, pulses abnormal or tenderness General Extremity: Negative for edema or pulses abnormal Neuro oriented x3, CN's II-XII intact bilaterally and no sensory deficits noted Sensorium / Orientation: awake and alert Motor Exam: strength 5/5 throughout Psych mental status grossly normal and thought process normal Skin no rashes or lesions noted and no wounds MDM MDM MDM Narrative Medical decision making narrative: Patient was treated with morphine and Zofran along with some IV fluids. She did not have any significant relief, she was asking for a dose of fentanyl and she was given that. She was given general fluids and discharged home in stable improved condition. Her lipase is normal. Her urinalysis shows leukocyte esterase as well as pyuria, however she has no urinary symptoms and her symptoms are inconsistent with urinary tract infection or pyelonephritis. For that reason, her urine was sent for culture, but I do not think we need to start her on antibiotics which may just compound the GI symptoms she is already having if they are not needed. Advised to follow-up and advised to do a clear liquid diet for at least the next 48 hours. Lab Data Attestation: I reviewed the patient's lab results. Labs: Laboratory Results - last 24 hr 07/14/20 07/14/20 07/14/20 23:30 23:40 23:40 WBC 7.2 RBC 4.68 Hgb 13.0 Hct 35.8 L MCV 76.5 L MCH 27.8 MCHC 36.3 H RDW Std Deviation 41.4 RDW Coeff of Varun 15.1 H Plt Count 231 MPV 11.3 Immature Gran % (Auto) 0.300 Neut % (Auto) 68.7 Lymph % (Auto) 24.7 [place] % (Auto) 4.6 Eos % (Auto) 1.1 Baso % (Auto) 0.6 Absolute Neuts (auto) 5.0 Absolute Lymphs (auto) 1.79 Nucleated RBC % 0 Differential Comment SCANNED Atypical Lymphocytes 1+ Platelet Estimate ADEQUATE Microcytosis RARE Sodium 133 L Potassium 3.8 Chloride 99 Carbon Dioxide 19.0 L Anion Gap 15 BUN 15 Creatinine 0.92 Estim Creat Clear Calc 78.00 Est GFR (MDRD) Af Amer 95 Est GFR (MDRD) Non-Af 79 BUN/Creatinine Ratio 16.3 Glucose 355 H Calcium 8.2 L Total Bilirubin 0.40 AST 20 ALT 55 Alkaline Phosphatase 69 Total Protein 8.2 Albumin 3.9 Globulin 4.3 H Albumin/Globulin Ratio 0.9 Lipase 349 Urine Color Yellow Urine Clarity Clear Urine pH 5.0 Ur Specific [place] 1.025 Urine Protein 100 H Urine Glucose (UA) 1000 H Urine Ketones Negative Urine Occult Blood 25 H Urine Nitrite Negative Urine Bilirubin Negative Urine Urobilinogen 1 H Ur Leukocyte Esterase 500 H Urine RBC 0-5 SEEN Urine WBC 10-25 SEEN Ur Squamous Epith Cells 0-5 SEEN Urine Bacteria 0 SEEN Urine Mucus 0 SEEN Discharge Plan Triage Chief Complaint: Abd Pain ED Provider: Hamlet Caro Dx/Rx/DC Orders Clinical Impression: Abdominal pain, diffuse Instructions: Chronic Pancreatitis, ED Clear Liquid Diet Prescriptions: No Action sertraline [Zoloft] 100 mg tablet 150 mg PO QHS RF: 0 diltiazem HCl 120 mg capsule,extended release 24hr 120 mg PO DAILY Qty: 30 RF: 11 fenofibrate 50 mg capsule 200 mg PO DAILY RF: 0 omeprazole 40 MG capsule,delayed release(DR/EC) 40 mg PO QHS RF: 0 ondansetron 4 MG tablet 4 mg PO Q8H PRN PRN (Reason: Nausea) Qty: 10 RF: 0 ondansetron 4 MG tablet 4 mg PO Q8H PRN PRN (Reason: Nausea) Qty: 10 RF: 0 promethazine 25 MG tablet 25 mg PO Q6H PRN PRN (Reason: Nausea) Qty: 14 RF: 0 Humulin N NPH Insulin KwikPen 100 unit/mL (3 mL) insulin pen 14 unit SC BID RF: 0 rosuvastatin [Crestor] 40 mg Tablet 40 mg PO DAILY RF: 0 omega-3 acid ethyl esters 1 gram capsule 2 cap PO BID Qty: 120 RF: 6 levothyroxine 50 mcg tablet 50 mcg PO DAILY Qty: 30 RF: 6 (DME) pen needle, diabetic [CareFine Pen Needle] 30 gauge x 5/16 needle See Rx Instructions .ROUTE .MEDSUPPLY Qty: 100 RF: 6 Primary Care Provider: Bryant Cardona Referrals: Bryant Cardona MD [Primary Care Provider] - 3-5 Days if not improving (and/or your other [facility] specialists) Disposition Disposition: Home, self care
[2020-07-14] MEDS: 0.9% Normal Saline 1,000 ML 1000 ML IV (23:46)
[2020-07-14] MEDS: Ondansetron 4 MG/2 ML Vial IV (23:46)
[2020-07-14] MEDS: Morphine 4 MG/ML Syringe IV (23:46)
[2020-07-14 23:48] LABS: Bacteria 0 SEEN /hpf (None Seen); Mucous, Urine 0 SEEN /hpf (<or=2+)
[2020-07-14 23:50] LABS: Absolute Lymphocyte Count 1.79 X10^3/uL (0.83-4.51); Basophil# 0.04 X10^3/uL; Basophil% 0.6 % (0-1); Eosinophil# 0.08 X10^3/uL; Eosinophils% 1.1 % (0-5); Hematocrit 35.8 % (37-47); Lymphocyte # 1.79 X10^3/ul (0.83-4.51); Lymphocyte % 24.7 % (19-41); Mean Corp Hgb Conc 36.3 g/dL (32-36); Mean Corpuscular Hgb 27.8 pg (27.0-32.0); Mean Corpuscular Volume 76.5 fL (81-99); Mean Platelet Vol. 11.3 fl (6.2-12.0); Monocyte# 0.33 X10^3/uL; Monocyte% 4.6 % (0-10); NRBC Flagged by Analyzer 0 % (0-5); Neutrophil # 4.98 X10^3/uL (2.7-7.7); Neutrophil % 68.7 % (47-70); POSITIVE MORPHOLOGY YES; Platelet Count 231 K/mm3 (150-450); RBC Distribution Width CV 15.1 % (11.6-14.6); RBC Distribution Width SD 41.4 fl (35.1-43.9); Red Blood Count 4.68 M/mm3 (4.2-5.4); White Blood Count 7.2 K/mm3 (4.4-11.0)
[2020-07-14 23:52] LABS: Differential Indicated SCAN CRITERIA MET
[2020-07-14 23:53] LABS: Color, Urine Yellow (Yellow); Glucose, Dipstick 1000 mg/dl (Normal); Ketone-Dipstick Negative (Negative); Leukocyte Esterase-Dipstick 500 /ul (Negative); Nitrite-Dipstick Negative (Negative); Occult Blood-Urine 25 /ul (Negative); Protein-Dipstick 100 mg/dl (Negative); Specific Gravity, Urine 1.025 (1.002-1.030); Urine Bilirubin Dipstick Negative (Negative); Urine Clarity Clear (Clear); Urine Urobilinogen 1 mg/dl (Normal)
[2020-07-15] LABS: Red Blood Cells-Urine 0-5 SEEN /hpf (0-5); Squamous Epithelial Cells - UA 0-5 SEEN /hpf (5-10); White Blood Cells 10-25 SEEN /hpf (0-5)
[2020-07-15 00:19] LABS: Differential Comment SCANNED
[2020-07-15 00:20] LABS: Atypical Lymphocyte 1+ %
[2020-07-15 00:21] LABS: Microcytosis RARE; Platelet Estimate ADEQUATE (ADEQ)
[2020-07-15 00:31] LABS: ALB/GLOB Ratio 0.9 RATIO (0.9-2.4); AST(SGOT) 20 U/L (15-37); Alanine Aminotransfer ALT/SGPT 55 U/L (13-56); Albumin, Serum 3.9 g/dL (3.2-5.0); Alkaline Phosphatase 69 U/L (45-117); Anion Gap 15 (5-15); BUN 15 mg/dL (7-18); BUN/Creat Ratio 16.3 RATIO (10-20); Calcium,Total 8.2 mg/dL (8.5-10.1); Chloride 99 mmol/L (98-107); Creatinine, Serum 0.92 mg/dL (0.55-1.02); EST Glomerular Filtration Rate 79 mL/min (>60); Est Glom Filt Rate - Afr Amer 95 mL/min (>60); Globulin 4.3 g/dL (2.2-4.2); Glucose 355 mg/dL (74-106); Lipase 349 U/L (73-393); Potassium 3.8 mmol/L (3.5-5.1); Protein, Total 8.2 g/dL (6.4-8.2); Sodium Level 133 mmol/L (136-145)
[2020-07-15] MEDS: fentaNYL 100 MCG/2 ML Ampul 75 MCG IV (01:04)
[2020-07-15 01:30] VITALS: BP 117/83; PULSE 85; RESP 18; O2SAT 95
[2020-07-15] MEDS: fentaNYL 100 MCG/2 ML Ampul 50 MCG IV (01:59)
[2020-07-15 02:00] VITALS: BP 122/81; PULSE 80; RESP 17; O2SAT 97
== END 2020-07-15 02:18 | disposition home or self-care (01) ==
PROVIDERS: Emergency Provider Emergency Medicine; PCP Family Medicine
DX: R10.84 Generalized abdominal pain (principal); F32.9 Major depressive disorder, single episode, unspecified; E78.1 Pure hyperglyceridemia; I10 Essential (primary) hypertension; E78.5 Hyperlipidemia, unspecified; E66.9 Obesity, unspecified; Z79.899 Other long term (current) drug therapy
CPT/HCPCS: 80053; 81001; 83690; 85025; 87086; 87088; 96361; 96374; 96375; 96376; 99284; J7030; A4216; J2405

== ENCOUNTER → 2020-09-02 12:32 | Outpatient (CLI) | payer MEDICAID, SELFPAY ==
[2020-09-01 09:55] VITALS: BMI 40.2
--- NOTE | 2020-09-02 12:34 | US_ITS ---
STUDY: ULTRASOUND OF THE FEMALE PELVIS - COMPLETE REASON FOR EXAM: Female, 25 years old. Possible right ovarian cyst. LMP: 08/18/2020. TECHNIQUE: Transabdominal and Transvaginal TECHNICAL QUALITY: Adequate. COMPARISON: None. FINDINGS: The uterus is anteverted and is tilted to the left side of the pelvis. The uterus measures 8.6 cm x 5.4 cm x 4.5 cm. Normal uterine cervix. The endometrium measures 12 mm in thickness, and is hyperechoic. There is no demonstrated endometrial mass. There is no demonstrated myometrial mass. I.U.D. - The patient does not have an I.U.D. The right ovary is visualized. The right ovary measures 4 cm x 2.2 cm x 2.4 cm. There is no right ovarian cyst or ovarian mass. There is no visualized right adnexal mass or complex lesion. There is normal arterial and normal venous vascularity. The left ovary is visualized. The left ovary measures 3.2 cm x 0.9 cm x 1.7 cm. There is no left ovarian cyst or ovarian mass. There is no visualized left adnexal mass or complex lesion. There is normal arterial and normal venous vascularity. There is minimal fluid in the cul-de-sac. The pre void volume of the bladder was 260 ml. US/Transvaginal Non- IMPRESSION: Normal female pelvis. Electronically Signed: Popeye Nichols MD at 14:52 EDT , Service support ,
--- NOTE | 2020-09-02 12:34 | US_ITS ---
STUDY: ULTRASOUND OF THE FEMALE PELVIS - COMPLETE REASON FOR EXAM: Female, 25 years old. Possible right ovarian cyst. LMP: 08/18/2020. TECHNIQUE: Transabdominal and Transvaginal TECHNICAL QUALITY: Adequate. COMPARISON: None. FINDINGS: The uterus is anteverted and is tilted to the left side of the pelvis. The uterus measures 8.6 cm x 5.4 cm x 4.5 cm. Normal uterine cervix. The endometrium measures 12 mm in thickness, and is hyperechoic. There is no demonstrated endometrial mass. There is no demonstrated myometrial mass. I.U.D. - The patient does not have an I.U.D. The right ovary is visualized. The right ovary measures 4 cm x 2.2 cm x 2.4 cm. There is no right ovarian cyst or ovarian mass. There is no visualized right adnexal mass or complex lesion. There is normal arterial and normal venous vascularity. The left ovary is visualized. The left ovary measures 3.2 cm x 0.9 cm x 1.7 cm. There is no left ovarian cyst or ovarian mass. There is no visualized left adnexal mass or complex lesion. There is normal arterial and normal venous vascularity. There is minimal fluid in the cul-de-sac. The pre void volume of the bladder was 260 ml. US/Pelvic (Non ) IMPRESSION: Normal female pelvis. Electronically Signed: Popeye Nichols MD at 14:52 EDT , Service support ,
== END ==
PROVIDERS: PCP Family Medicine; Referring Provider Nurse Practitioner Women's Health; Visit Provider Nurse Practitioner Women's Health
DX: N83.201 Unspecified ovarian cyst, right side (principal)
CPT/HCPCS: 76830; 76856

== ENCOUNTER 2021-04-08 21:01 | Emergency (ER) | payer MEDICAID, SELFPAY ==
[2021-04-08 21:03] VITALS: BP 146/90; PULSE 65; RESP 15; TEMP 36.1; O2SAT 100; BMI 35.4
--- NOTE | 2021-04-08 21:31 | CT_ITS ---
INDICATION: migraine EXAMINATION: CT BRAIN - CT Head or Brain W/O Contrast Injection TECHNIQUE: Multiple axial images were obtained of the head without intravenous contrast. A radiation dose optimization technique was used for this scan. IV Contrast dosage and agent: None. COMPARISON: None. FINDINGS: BRAIN PARENCHYMA: No intra- or extra-axial hemorrhage. No intracranial mass or mass effect. Rene/white matter differentiation is maintained and there is no blurring of the basal ganglia. There is no hyperdense vessel. Posterior fossa structures are unremarkable. CSF SPACES: Appropriate for age. No hydrocephalus. Basal cisterns are patent. CALVARIUM, SKULL BASE, PARANASAL SINUSES AND MASTOID AIR CELLS: Clear. No discrete lytic or blastic abnormalities. ORBITS: Both globes, extraocular muscles, optic nerves and retrobulbar fat appear unremarkable. CT/Brain/Head without Contrast IMPRESSION: Negative Brain CT without contrast. Electronically Signed: Neftali Green DO at 22:30 EST Tel , Service support ,
--- NOTE | 2021-04-08 21:31 | EKG12_ITS ---
Test Reason : DYSRHYTHMIA Blood Pressure : / mmHG Vent. Rate : 078 BPM Atrial Rate : 078 BPM P-R Int : 168 ms QRS Dur : 080 ms QT Int : 394 ms P-R-T Axes : 044 026 036 degrees QTc Int : 449 ms Normal sinus rhythm Normal ECG Confirmed by RY ARCINIEGA, MARGAUX ([id number]), video tape editor GAB ALEXANDER ([id number]) on 04/11/2021 10:44:53 A M Referred By: TAYLOR Confirmed By:ISIAH RAZA MD
[2021-04-08] MEDS: Metoclopramide 10 MG/2 ML Vial IV (21:37)
[2021-04-08] MEDS: DiphenhydrAMINE 50 MG/ML Syringe 25 MG IV (21:37)
[2021-04-08] MEDS: Ketorolac 30 MG/ML Syringe IV (21:37)
[2021-04-08] MEDS: 0.9% Normal Saline 1,000 ML 1000 ML IV (21:37)
[2021-04-08 21:51] LABS: Absolute Lymphocyte Count 2.01 X10^3/uL (0.83-4.51); Absolute Neutrophil Count 3.5 X10^3/uL (2.0-7.7); Basophil# 0.03 X10^3/uL; Basophil% 0.5 % (0-1); Eosinophil# 0.09 X10^3/uL; Eosinophils% 1.5 % (0-5); Hematocrit 37.3 % (37-47); Hemoglobin 11.5 g/dL (12.0-15.0); Lymphocyte # 2.01 X10^3/ul (0.83-4.51); Lymphocyte % 34.1 % (19-41); Mean Corp Hgb Conc 30.8 g/dL (32-36); Mean Corpuscular Hgb 23.2 pg (27.0-32.0); Mean Corpuscular Volume 75.4 fL (81-99); Monocyte# 0.27 X10^3/uL; Monocyte% 4.6 % (0-10); NRBC Flagged by Analyzer 0 % (0-5); Neutrophil # 3.47 X10^3/uL (2.7-7.7); Platelet Count 297 K/mm3 (150-450); RBC Distribution Width CV 15.1 % (11.6-14.6); RBC Distribution Width SD 41.3 fl (35.1-43.9); Red Blood Count 4.95 M/mm3 (4.2-5.4); White Blood Count 5.9 K/mm3 (4.4-11.0)
[2021-04-08 22:07] LABS: Anion Gap 9 (5-15); BUN 11 mg/dL (7-18); BUN/Creat Ratio 15.9 RATIO (10-20); Calcium,Total 8.7 mg/dL (8.5-10.1); Chloride 105 mmol/L (98-107); Creatinine, Serum 0.69 mg/dL (0.55-1.02); EST Glomerular Filtration Rate 109 mL/min (>60); Est Glom Filt Rate - Afr Amer 132 mL/min (>60); Glucose 128 mg/dL (74-106); Potassium 3.8 mmol/L (3.5-5.1); Sodium Level 137 mmol/L (136-145)
[2021-04-08 22:12] VITALS: BP 121/86; PULSE 60
--- NOTE | 2021-04-08 22:52 | EX.ED.DYSGE1 ---
HPI History of Present Illness Chief Complaint: Dizziness Informant: patient Onset/Context/Timing Onset: Today Current Severity: Mild Maximum Severity: Moderate Narrative Narrative: Patient presents with dizziness and migraine. She states she was at a local store tonight. When standing at the checkout line she states she started get tunnel vision and felt as if she may pass out. She drove herself home. She continues to feel lightheaded and then developed a migraine headache. She reports some mild nausea. No recent URI symptoms. No head trauma. No neck pain. [facility] Medical History A-fib Depression High triglycerides HTN (hypertension) Hx of transfusion of whole blood Hyperlipidemia Pancreatitis Pancreatitis Home Medications sertraline 100 mg tablet 150 mg PO QHS 01/06/19 [History Last Taken 09/30/19] omeprazole 40 mg PO QHS 06/22/19 [History Last Taken 09/30/19] ondansetron 4 mg PO Q8H PRN PRN #10 tab 08/28/19 [Rx Last Taken 10/01/19] omega-3 acid ethyl esters 1 gram capsule 2 cap PO BID #120 cap 10/06/19 [Rx Last Taken Unknown] levothyroxine 50 mcg tablet 50 mcg PO DAILY #30 tab 11/27/19 [Rx Last Taken Unknown] fenofibrate 50 mg capsule 200 mg PO DAILY cap 12/01/19 [History Last Taken Unknown] pen needle, diabetic 30 gauge x 16 #100 ea 12/28/19 [Rx Last Taken Unknown] promethazine 25 mg PO Q6H PRN PRN #14 tab 06/08/20 [Rx Last Taken Unknown] insulin NPH isoph U-100 human [Humulin N NPH Insulin KwikPen] 14 unit SC BID 07/14/20 [History Last Taken Unknown] rosuvastatin [Crestor] 40 mg PO DAILY 07/14/20 [History Last Taken Unknown] cholecalciferol (vitamin D3) 1,250 mcg (50,000 unit) capsule 1,250 mcg PO QWEEK 09/01/20 [History Last Taken Unknown] flash glucose scanning reader #1 ea 09/01/20 [History Last Taken Unknown] Allergy/AdvReac Type Severity Reaction Status Date / Time Gadolinium-MRI Contrast Allergy Severe KIDNEY Verified 04/08/21 21:05 Medium FAILURE [DYE] hydromorphone [From Dilaudid] Allergy Rash Verified 04/08/21 21:05 metformin Allergy Rash Verified 04/08/21 21:05 Family History Mother Diabetes Grandmother Diabetes Grandfather Diabetes Father hyperlipidemia Unknown Depression Hypertension Surgical History History of carpal tunnel release of both wrists History of cholecystectomy History of endoscopy laparoscopic bilateral salpingectomy Social History Smoking Status: Never smoker alcohol intake: never substance use type: does not use caffeine: No what type of physical activity do you participate in: none seatbelt use: always 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 ROS ED Constitutional Constitutional ED: Denies chills or fever(s) Eyes Eyes: Denies change in vision ENT ENT ED: Denies sore throat Cardiovascular Cardiovascular: Denies chest pain, palpitations or racing heartbeat Respiratory/Chest Respiratory/Chest: Denies cough or dyspnea Gastrointestinal Gastrointestinal: Reports nausea; Denies abdominal pain, diarrhea or vomiting Genitourinary Genitourinary ED: Denies dysuria Musculoskeletal Musculoskeletal: Denies back pain or neck pain Integumentary Denies rash Neurologic Neurologic: Reports headache(s); Denies weakness Allergic/Immunologic Allergic/Immunologic ED: Denies urticaria EXAM Physical Exam Const Vital Signs: 04/08/21 21:03 04/08/21 21:18 04/08/21 22:12 Temperature 97 F L Temperature Source Temporal Pulse Rate 65 60 Respiratory Rate 15 Respiratory Effort Normal Non-Labored Respiratory Pattern Normal Blood Pressure 146/90 H 121/86 H Blood Pressure Mean 108 97 Pulse Ox 100 Oxygen Delivery Method Room Air Room Air Positive well nourished and well developed General Appearance ED: well developed HEENT Reports moist mucous membranes Eyes PERRL and EOMs intact bilaterally Neck supple Neck Narrative: No meningismus Chest Wall inspection of chest normal and palpation of chest normal Resp normal respiratory effort and clear to auscultation bilaterally Cardio regular rate and regular rhythm GI non-tender Palpation: soft Extremity normal to inspection Neuro oriented x3 and no sensory deficits noted Sensorium / Orientation: alert Motor Exam: strength 5/5 throughout Psych mental status grossly normal Skin no rashes or lesions noted MDM MDM MDM Narrative Medical decision making narrative: Patient was given Toradol, Reglan, Benadryl, IV fluids. Lab work and head CT obtained. Lab Data Attestation: I reviewed the patient's lab results. Labs: Laboratory Results - last 24 hr 04/08/21 04/08/21 21:16 21:16 WBC 5.9 RBC 4.95 Hgb 11.5 L Hct 37.3 MCV 75.4 L MCH 23.2 L MCHC 30.8 L RDW Std Deviation 41.3 RDW Coeff of Varun 15.1 H Plt Count 297 MPV 11.0 Immature Gran % (Auto) 0.300 Neut % (Auto) 59.0 Lymph % (Auto) 34.1 Pender % (Auto) 4.6 Eos % (Auto) 1.5 Baso % (Auto) 0.5 Absolute Neuts (auto) 3.5 Absolute Lymphs (auto) 2.01 Nucleated RBC % 0 Sodium 137 Potassium 3.8 Chloride 105 Carbon Dioxide 23.0 Anion Gap 9 BUN 11 Creatinine 0.69 Estim Creat Clear Calc 103.10 Est GFR (MDRD) Af Amer 132 Est GFR (MDRD) Non-Af 109 BUN/Creatinine Ratio 15.9 Glucose 128 H Calcium 8.7 Radiography Diagnostic Testing: Clinical Impression(s) from Imaging Studies Brain CT 04/08/21 21:31 IMPRESSION: Negative Brain CT without contrast. Electronically Signed: Neftali Green DO at 22:30 EST Tel , Service support , EKG Initial EKG: Attestation: I personally reviewed and interpreted this EKG as follows: Interpretation: Sinus Rhythm (Sinus at 78 with no acute ischemia.) Treatment and Re-Evaluation Comments:: On repeat evaluation patient reports improvement in her headache. Lab work and head CT findings reviewed with her. Patient will continue supportive care at home. Return instructions provided. Discharge Plan Triage Chief Complaint: Dizziness ED Provider: Christal Ordonez Dx/Rx/DC Orders Clinical Impression: Near syncope, Migraine Instructions: ED, Migraine (Classical), ED Near-Fainting, Uncertain Cause Prescriptions: No Action sertraline [Zoloft] 100 mg tablet 150 mg PO QHS RF: 0 fenofibrate 50 mg capsule 200 mg PO DAILY RF: 0 cholecalciferol (vitamin D3) 1,250 mcg (50,000 unit) capsule 1,250 mcg PO QWEEK RF: 0 (DME) FreeStyle [place] 14 Day [place] Misc See Rx Instructions .ROUTE .MEDSUPPLY Qty: 1 RF: 0 omeprazole 40 MG capsule,delayed release(DR/EC) 40 mg PO QHS RF: 0 ondansetron 4 MG tablet 4 mg PO Q8H PRN PRN (Reason: Nausea) Qty: 10 RF: 0 promethazine 25 MG tablet 25 mg PO Q6H PRN PRN (Reason: Nausea) Qty: 14 RF: 0 Humulin N NPH Insulin KwikPen 100 unit/mL (3 mL) insulin pen 14 unit SC BID RF: 0 rosuvastatin [Crestor] 40 mg Tablet 40 mg PO DAILY RF: 0 omega-3 acid ethyl esters 1 gram capsule 2 cap PO BID Qty: 120 RF: 6 levothyroxine 50 mcg tablet 50 mcg PO DAILY Qty: 30 RF: 6 (DME) pen needle, diabetic [CareFine Pen Needle] 30 gauge x 5/16 needle See Rx Instructions .ROUTE .MEDSUPPLY Qty: 100 RF: 6 Primary Care Provider: Bryant Cardona Referrals: Bryant Cardona MD [Primary Care Provider] - 3-5 Days if not improving Disposition Disposition: Home, Self Care
== END 2021-04-08 23:05 | disposition home or self-care (01) ==
PROVIDERS: Emergency Provider Emergency Medicine; PCP Family Medicine; Visit Provider Emergency Medicine
DX: R55 Syncope and collapse (principal); G43.909 Migraine, unspecified, not intractable, without status migrainosus
CPT/HCPCS: 70450; 80048; 85025; 93005; 96361; 96374; 96375; 99284; J7030; A4216

== ENCOUNTER 2021-05-25 22:12 | Emergency (ER) | payer MEDICAID, SELFPAY ==
[2021-05-25 22:13] VITALS: BP 144/91; PULSE 71; RESP 14; TEMP 35.1; O2SAT 96; BMI 35.9
[2021-05-25] MEDS: Ondansetron 4 MG/2 ML Vial IV (23:10)
[2021-05-25] MEDS: Morphine 4 MG/ML Syringe IV (23:10)
[2021-05-25] MEDS: 0.9% Normal Saline 1,000 ML 999 ML IV (23:10)
[2021-05-26 00:15] VITALS: O2SAT 16
--- NOTE | 2021-05-26 00:21 | EDS_ITS ---
HPI History of Present Illness Chief Complaint: Dizziness Narrative Narrative: Patient is a 25-year-old female who underwent removal of her wisdom teeth today. She states that after the anesthesia began to wear off she began feeling nauseous and slightly lightheaded. She states that she has had increased pain as well. She reports she is trying to swallow the medication prescribed for her but has been unable to do so because of the pain in her mouth. She also reports he has a history of gastric sleeve and called her doctor who advised her to come to the hospital as there was concern she could be dehydrated and may need a change in medication based on her difficulty swallowing. [facility] Medical History A-fib Depression High triglycerides HTN (hypertension) Hx of transfusion of whole blood Hyperlipidemia Pancreatitis Pancreatitis Home Medications sertraline 100 mg tablet 150 mg PO QHS 01/06/19 [History Last Taken 09/30/19] omeprazole 40 mg PO QHS 06/22/19 [History Last Taken 09/30/19] ondansetron 4 mg PO Q8H PRN PRN #10 tab 08/28/19 [Rx Last Taken 10/01/19] omega-3 acid ethyl esters 1 gram capsule 2 cap PO BID #120 cap 10/06/19 [Rx Last Taken Unknown] levothyroxine 50 mcg tablet 50 mcg PO DAILY #30 tab 11/27/19 [Rx Last Taken Unknown] fenofibrate 50 mg capsule 200 mg PO DAILY cap 12/01/19 [History Last Taken Unknown] pen needle, diabetic 30 gauge x 16 #100 ea 12/28/19 [Rx Last Taken Unknown] promethazine 25 mg PO Q6H PRN PRN #14 tab 06/08/20 [Rx Last Taken Unknown] insulin NPH isoph U-100 human [Humulin N NPH Insulin KwikPen] 14 unit SC BID 07/14/20 [History Last Taken Unknown] rosuvastatin [Crestor] 40 mg PO DAILY 07/14/20 [History Last Taken Unknown] cholecalciferol (vitamin D3) 1,250 mcg (50,000 unit) capsule 1,250 mcg PO QWEEK 09/01/20 [History Last Taken Unknown] flash glucose scanning reader #1 ea 09/01/20 [History Last Taken Unknown] ondansetron 4 mg PO TID PRN PRN #21 tab 05/26/21 [Rx Last Taken Unknown] oxycodone 5 mg PO Q6H PRN 3 Days #60 ml 05/26/21 [Rx Last Taken Unknown] Allergy/AdvReac Type Severity Reaction Status Date / Time Gadolinium-MRI Contrast Allergy Severe KIDNEY Verified 05/25/21 22:13 Medium FAILURE [DYE] hydromorphone [From Dilaudid] Allergy Rash Verified 05/25/21 22:13 metformin Allergy Rash Verified 05/25/21 22:13 Family History Mother Diabetes Grandmother Diabetes Grandfather Diabetes Father hyperlipidemia Unknown Depression Hypertension Surgical History History of carpal tunnel release of both wrists History of cholecystectomy History of endoscopy laparoscopic bilateral salpingectomy Social History Smoking Status: Never smoker alcohol intake: never substance use type: does not use caffeine: No what type of physical activity do you participate in: none seatbelt use: always 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 ED Constitutional Constitutional ED: Denies chills or fever(s) ENT ENT ED: Reports sore throat and other Details: Positive mild pain Cardiovascular Cardiovascular: Denies chest pain Respiratory/Chest Respiratory/Chest: Denies cough or dyspnea Gastrointestinal Gastrointestinal: Reports nausea; Denies abdominal pain, diarrhea or vomiting Genitourinary Genitourinary ED: Denies dysuria Musculoskeletal Musculoskeletal: Denies myalgias Integumentary Denies rash Neurologic Neurologic: Reports headache(s) Hematologic/Lymphatic Hematologic/Lymphatic: Denies easy bleeding or easy bruising EXAM Physical Exam Const Vital Signs: 05/25/21 22:13 05/25/21 23:13 05/26/21 00:15 Temperature 95.1 F L Temperature Source Temporal Pulse Rate 71 Respiratory Rate 14 Respiratory Effort Normal Non-Labored Blood Pressure 144/91 H Blood Pressure Mean 108 Pulse Ox 96 16 Oxygen Delivery Method Room Air Positive well nourished, well developed and obese General Appearance ED: well developed Nutritional Appearance: obese HEENT Reports TM's clear and dry mucous membranes HEENT Narrative: Postsurgical changes consistent with recent wisdom teeth extraction. No signs of infection no airway edema or compromise Tympanic Membrane ED: Yes TM's clear Mouth ED: Yes dry mucous membranes Mouth: dry mucous membranes Eyes PERRL and EOMs intact bilaterally Neck supple Resp normal respiratory effort and clear to auscultation bilaterally Cardio regular rate and regular rhythm GI normal to inspection, nondistended, normoactive bowel sounds, non-tender, non- distended and no masses Auscultation: normoactive bowel sounds Palpation: soft Extremity normal to inspection Neuro oriented x3 and CN's II-XII intact bilaterally Sensorium / Orientation: alert Motor Exam: strength 5/5 throughout Psych Mood & Affect: depressed Skin no rashes or lesions noted MDM MDM MDM Narrative Medical decision making narrative: Patient presented to the ER mildly hypertensive otherwise with stable vitals. Neuro exam was nonfocal and her main complaint was increased pain with difficulty swallowing leading to fatigue and concern for dehydration. We discussed obtaining possible labs secondary to this but patient states she underwent a complete evaluation just a few days ago and her lab work was normal. Therefore she does not want any type of blood work drawn. At this time patient will be given IV fluids as well as IV pain medication. On reevaluation she reports feeling much improved and her neuro exam is normal and therefore do not feel there is need for work-up and patient can be safely discharged Discharge Plan Triage Chief Complaint: Dizziness ED Provider: Ildefonso Ramesh Dx/Rx/DC Orders Clinical Impression: Post-operative pain Instructions: Managing Post-Op Pain at Home, ED Dehydration (Adult) Prescriptions: New ondansetron 4 mg tablet,disintegrating 4 mg PO TID PRN PRN (Reason: nausea and vomiting) Qty: 21 RF: 0 oxycodone 5 mg/5 mL solution 5 mg PO Q6H PRN (Reason: pain) 3 Days Qty: 60 RF: 0 No Action sertraline [Zoloft] 100 mg tablet 150 mg PO QHS RF: 0 fenofibrate 50 mg capsule 200 mg PO DAILY RF: 0 cholecalciferol (vitamin D3) 1,250 mcg (50,000 unit) capsule 1,250 mcg PO QWEEK RF: 0 (DME) FreeStyle [place] 14 Day [place] Misc See Rx Instructions .ROUTE .MEDSUPPLY Qty: 1 RF: 0 omeprazole 40 MG capsule,delayed release(DR/EC) 40 mg PO QHS RF: 0 ondansetron 4 MG tablet 4 mg PO Q8H PRN PRN (Reason: Nausea) Qty: 10 RF: 0 promethazine 25 MG tablet 25 mg PO Q6H PRN PRN (Reason: Nausea) Qty: 14 RF: 0 Humulin N NPH Insulin KwikPen 100 unit/mL (3 mL) insulin pen 14 unit SC BID RF: 0 rosuvastatin [Crestor] 40 mg Tablet 40 mg PO DAILY RF: 0 omega-3 acid ethyl esters 1 gram capsule 2 cap PO BID Qty: 120 RF: 6 levothyroxine 50 mcg tablet 50 mcg PO DAILY Qty: 30 RF: 6 (DME) pen needle, diabetic [CareFine Pen Needle] 30 gauge x 5/16 needle See Rx Instructions .ROUTE .MEDSUPPLY Qty: 100 RF: 6 Referrals: LISA MEDINA [Other] Disposition Disposition: Home, Self Care Discharge Date/Time: 05/26/21 00:35
[2021-05-26] MEDS: fentaNYL 100 MCG/2 ML Ampul IV (00:29)
[2021-05-26] MEDS: Ondansetron 4 MG/2 ML Vial IV (00:30)
--- NOTE | 2021-05-26 14:21 | ED.RN ---
THIS NURSE SPOKE WITH THE PT ON THE PHONE WITH THE ISSUES WITH HER PRESCRIPTIONS AT [facility]. DR ALCANTAR SPOKE WITH THE PHARMACIST WAS HUYEN SAEED. BECAUSE THE PT HAD PERCOCET FILLED YESTERDAY, THEY ARE NOT ABLE TO FILL THE OXYCODONE LIQUID. THIS INFORMATION WAS PASSED ON TO THE NURSE. DR ALCANTAR AND THIS NURSE GAVE THE PT OTHER OPTIONS FOR WAYS TO TAKE THE PERCOCET. PT STATES SO YOU'RE NOT GOING TO GIVE ME ANYTHING FOR MY PAIN. THIS IS BULLSHIT. DELMI GREENWOOD. THE PT THEN HUNG UP ON THIS NURS
== END 2021-05-26 00:35 | disposition home or self-care (01) ==
PROVIDERS: Emergency Provider Emergency Medicine; Visit Provider Emergency Medicine
DX: G89.18 Other acute postprocedural pain (principal); E78.5 Hyperlipidemia, unspecified; F32.A Depression, unspecified; E66.9 Obesity, unspecified; Z68.35 Body mass index [BMI] 35.0-35.9, adult; Z79.899 Other long term (current) drug therapy
CPT/HCPCS: 96361; 96374; 96375; 96376; 99282; J7030; A4216; J2405

== ENCOUNTER 2021-11-17 21:24 | Emergency (ER) | payer MEDICAID, SELFPAY ==
[2021-11-17 21:25] VITALS: BP 149/94; PULSE 82; RESP 15; TEMP 36.4; O2SAT 100; BMI 35.9
[2021-11-17 21:26] VITALS: BP 149/94; PULSE 82; RESP 15; TEMP 36.4; O2SAT 100
--- NOTE | 2021-11-17 22:24 | EDS_ITS ---
HPI History of Present Illness Chief Complaint: Headache Informant: patient Onset/Context/Timing Onset: Today Context: Sudden Timing: Continuous Quality -Headache: Positive for Similar Prior Headaches Location: Generalized Worsened by: Lights, sounds Relieved by: Nothing Associated Symptoms/Injury Associated Symptoms: Positive for Nausea, Sinus Pressure, Numbness, Preceding Aura, Visual Changes and Photophobia; Negative for Fever, Vomiting, Sore Throat, Tingling, Blurred Vision or Visual Loss Narrative Narrative: Patient presents with a headache that began today. Patient states it began rather suddenly. Patient states it is constant. Patient states it is similar to prior migraine headaches in the past. Patient states she has not had one in a long time however. Patient states her headache is generalized. Patient states it is worse with lights and sounds. Patient admits to some nausea but denies any vomiting. Patient admits to some scotoma and auras. Patient also admits to some tingling in her hands earlier but states this has resolved. [facility] Medical History A-fib Depression High triglycerides HTN (hypertension) Hx of transfusion of whole blood Hyperlipidemia Pancreatitis Pancreatitis Home Medications sertraline 100 mg tablet (Zoloft) 150 mg PO QHS anxiety/depression 01/06/19 [History Last Taken 09/30/19] omeprazole 40 mg capsule,delayed release 40 mg PO QHS gerd 06/22/19 [History Last Taken 09/30/19] ondansetron 4 mg disintegrating tablet 4 mg PO Q8H PRN PRN Nausea #10 tabs 08/28/19 [Rx Last Taken 10/01/19] omega-3 acid ethyl esters 1 gram capsule 2 cap PO BID #120 caps 10/06/19 [Rx Last Taken Unknown] levothyroxine 50 mcg tablet 50 mcg PO DAILY #30 tabs 11/27/19 [Rx Last Taken Unknown] fenofibrate 50 mg capsule 200 mg PO DAILY 12/01/19 [History Last Taken Unknown] pen needle, diabetic 30 gauge x /16 (CareFine Pen Needle) #100 ea 12/28/19 [Rx Last Taken Unknown] promethazine 25 mg tablet 25 mg PO Q6H PRN PRN Nausea #14 TABLETS 06/08/20 [Rx Last Taken Unknown] insulin NPH isoph U-100 human 100 unit/mL (3 mL) subcutaneous pen (Humulin N NPH U-100 Insulin KwikPen) 14 unit subcut BID 07/14/20 [History Last Taken Unknown] rosuvastatin 40 mg tablet (Crestor) 40 mg PO DAILY 07/14/20 [History Last Taken Unknown] cholecalciferol (vitamin D3) 1,250 mcg (50,000 unit) capsule 1,250 mcg PO QWEEK 09/01/20 [History Last Taken Unknown] flash glucose scanning reader ([facility] [place] 14 Day [place]) #1 ea 09/01/20 [History Last Taken Unknown] ondansetron 4 mg disintegrating tablet 8 mg PO Q8H PRN PRN Nausea #20 tabs 05/26/21 [Rx Last Taken Unknown] Allergy/AdvReac Type Severity Reaction Status Date / Time Gadolinium-MRI Contrast Allergy Severe KIDNEY Verified 11/17/21 21:27 Medium FAILURE [DYE] hydromorphone [From Dilaudid] Allergy Rash Verified 11/17/21 21:27 metformin Allergy Rash Verified 11/17/21 21:27 Family History Mother Diabetes Grandmother Diabetes Grandfather Diabetes Father hyperlipidemia Unknown Depression Hypertension Surgical History History of carpal tunnel release of both wrists History of cholecystectomy History of endoscopy laparoscopic bilateral salpingectomy Social History Smoking Status: Never smoker alcohol intake: never substance use type: does not use caffeine: No what type of physical activity do you participate in: none seatbelt use: always 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 ED Constitutional Constitutional ED: Denies chills or fever(s) Eyes Eyes: Reports change in vision; Denies blurry vision ENT ENT ED: Denies rhinorrhea or sore throat Cardiovascular Cardiovascular: Denies chest pain or palpitations Respiratory/Chest Respiratory/Chest: Denies cough or dyspnea Gastrointestinal Gastrointestinal: Reports nausea; Denies vomiting Genitourinary Genitourinary ED: Denies dysuria or hematuria Musculoskeletal Musculoskeletal: Denies back pain or neck pain Integumentary Denies abscess or rash Neurologic Neurologic: Reports headache(s); Denies weakness Allergic/Immunologic Allergic/Immunologic ED: Denies mouth swelling or urticaria EXAM Physical Exam Const Vital Signs: 11/17/21 21:25 11/17/21 21:26 Temperature 97.6 F L 97.6 F L Temperature Source Temporal Temporal Pulse Rate 82 82 Respiratory Rate 15 15 Blood Pressure 149/94 H 149/94 H Blood Pressure Mean 112 112 Pulse Ox 100 100 Oxygen Delivery Method Room Air Room Air Positive well nourished, well developed and obese General Appearance ED: well developed and NAD Nutritional Appearance: obese HEENT Reports moist mucous membranes Neck supple and no JVD Resp normal respiratory effort and clear to auscultation bilaterally Cardio regular rate, regular rhythm and no murmurs GI normal to inspection, nondistended, normoactive bowel sounds and non-tender Palpation: soft Extremity normal to inspection General Extremety ED: Negative for edema or tenderness General Extremity: Negative for edema Neuro oriented x3, CN's II-XII intact bilaterally and no sensory deficits noted Sensorium / Orientation: awake and alert Motor Exam: strength 5/5 throughout Psych mental status grossly normal Skin no rashes or lesions noted MDM MDM MDM Narrative Medical decision making narrative: Patient was given IV fluids, Reglan, and Benadryl. Patient is feeling better on reevaluation. Patient states her headache is nearly resolved. Patient was instructed to rest in a dark quiet room. Patient was instructed to follow-up with her primary care physician in 5 to 7 days. Patient understood and was agreeable with the plan. All questions were answered. Discharge Plan Triage Chief Complaint: Headache ED Provider: Jose Swartz Dx/Rx/DC Orders Clinical Impression: Migraine headache, Hypertension, Obesity Instructions: ED, Migraine (Classical) Prescriptions: No Action sertraline [Zoloft] 100 mg tablet 150 mg PO QHS fenofibrate 50 mg capsule 200 mg PO DAILY cholecalciferol (vitamin D3) 1,250 mcg (50,000 unit) capsule 1,250 mcg PO QWEEK (DME) Angelita Malik 14 Day [place] Misc See Rx Instructions .ROUTE .MEDSUPPLY Qty: 1 Rx Instructions: As directed omeprazole 40 MG capsule,delayed release(DR/EC) 40 mg PO QHS ondansetron 4 MG tablet 4 mg PO Q8H PRN PRN (Reason: Nausea) Qty: 10 0RF promethazine 25 MG tablet 25 mg PO Q6H PRN PRN (Reason: Nausea) Qty: 14 0RF Humulin N NPH Insulin KwikPen 100 unit/mL (3 mL) insulin pen 14 unit SC BID rosuvastatin [Crestor] 40 mg Tablet 40 mg PO DAILY ondansetron [ondansetron] 4 MG tablet 8 mg PO Q8H PRN PRN (Reason: Nausea) Qty: 20 0RF omega-3 acid ethyl esters 1 gram capsule 2 cap PO BID Qty: 120 6RF levothyroxine 50 mcg tablet 50 mcg PO DAILY Qty: 30 6RF (DME) pen needle, diabetic [CareFine Pen Needle] 30 gauge x 5/16 needle See Rx Instructions .ROUTE .MEDSUPPLY Qty: 100 6RF Rx Instructions: bid Primary Care Provider: LISA MEDINA Referrals: LISA MEDINA [Other] - 5-7 Days Disposition Disposition: Home, Self Care
[2021-11-17] MEDS: Metoclopramide 10 MG/2 ML Vial IV (22:38)
[2021-11-17] MEDS: DiphenhydrAMINE 50 MG/ML Syringe 25 MG IV (22:39)
[2021-11-17] MEDS: 0.9% Normal Saline 1,000 ML 999 ML IV (22:40)
[2021-11-18] VITALS: PULSE 61; RESP 15; O2SAT 98
== END 2021-11-18 00:04 | disposition home or self-care (01) ==
PROVIDERS: Emergency Provider Emergency Medicine; Visit Provider Emergency Medicine
DX: G43.909 Migraine, unspecified, not intractable, without status migrainosus (principal); E66.9 Obesity, unspecified; I10 Essential (primary) hypertension; E78.5 Hyperlipidemia, unspecified; Z79.899 Other long term (current) drug therapy
CPT/HCPCS: 96361; 96374; 96375; 99283; J7030; A4216

== ENCOUNTER → 2022-05-11 | Outpatient (CLI) | payer MEDICAID, SELFPAY | END | disposition home or self-care (01) | PROVIDERS: Referring Provider Obstetrics & Gynecology; Visit Provider Obstetrics & Gynecology | DX: R10.2 Pelvic and perineal pain (principal) | CPT/HCPCS: 87070; 87077; 87205 ==

== ENCOUNTER 2022-07-22 17:34 | Emergency (ER) | payer MEDICAID, SELFPAY ==
[2022-07-22 17:35] VITALS: BP 140/84; PULSE 79; RESP 16; TEMP 36.6; O2SAT 100; BMI 36.8
[2022-07-22] MEDS: Fluorescein 1 MG STRIP 1 STRIP OPHTHALMIC (18:05)
[2022-07-22] MEDS: Tetracaine 0.5% Ophthalmic Bottle 1 DRP OPHTHALMIC (18:06)
--- NOTE | 2022-07-22 18:10 | EDS_ITS ---
HPI <MARISA Cabrera - Last Filed: 07/22/22 18:17> History of Present Illness Chief Complaint: Eye Problem Narrative Narrative: Patient is a 26-year-old female with history of obesity, pretension, type 2 diabetes who presents to the emergency department after sustaining a right eye injury. Patient states he was putting together a bed, she was using a screwdriver on a screw, when something fell down and struck her in the right eye. She washed her eye out however he states he feels a foreign body sensation. She states she has tearing however no difficulty seeing. She does not wear contacts. She wears glasses. She denies any other injury PFS <MARISA Cabrera - Last Filed: 07/22/22 18:17> [facility] Medical History (Updated 07/22/22 @ 18:15 by MARISA Cabrera) A-fib Bipolar 2 disorder Depression High triglycerides HTN (hypertension) Hx of transfusion of whole blood Hyperlipidemia Pancreatitis PTSD (post-traumatic stress disorder) Home Medications sertraline 100 mg tablet (Zoloft) 150 mg PO QHS anxiety/depression 01/06/19 [History Last Taken 09/30/19] omeprazole 40 mg capsule,delayed release 40 mg PO QHS gerd 06/22/19 [History Last Taken 09/30/19] ondansetron 4 mg disintegrating tablet 4 mg PO Q8H PRN PRN Nausea #10 tabs 08/28/19 [Rx Last Taken 10/01/19] omega-3 acid ethyl esters 1 gram capsule 2 cap PO BID #120 caps 10/06/19 [Rx Last Taken Unknown] levothyroxine 50 mcg tablet 50 mcg PO DAILY #30 tabs 11/27/19 [Rx Last Taken Unknown] fenofibrate 50 mg capsule 200 mg PO DAILY 12/01/19 [History Last Taken Unknown] pen needle, diabetic 30 gauge x 5/16 (CareFine Pen Needle) #100 ea 12/28/19 [Rx Last Taken Unknown] promethazine 25 mg tablet 25 mg PO Q6H PRN PRN Nausea #14 TABLETS 06/08/20 [Rx Last Taken Unknown] insulin NPH isoph U-100 human 100 unit/mL (3 mL) subcutaneous pen (Humulin N NPH U-100 Insulin KwikPen) 14 unit subcut BID 07/14/20 [History Last Taken Unknown] rosuvastatin 40 mg tablet (Crestor) 40 mg PO DAILY 07/14/20 [History Last Taken Unknown] cholecalciferol (vitamin D3) 1,250 mcg (50,000 unit) capsule 1,250 mcg PO QWEEK 09/01/20 [History Last Taken Unknown] flash glucose scanning reader ([employer] [place] 14 Day [place]) #1 ea 09/01/20 [History Last Taken Unknown] ondansetron 4 mg disintegrating tablet 8 mg PO Q8H PRN PRN Nausea #20 tabs 05/26/21 [Rx Last Taken Unknown] ferrous sulfate 325 mg (65 mg iron) tablet (Feosol) 325 mg PO DAILY 05/11/22 [History Last Taken Unknown] ondansetron HCl 4 mg tablet 4 mg PO Q8H 05/11/22 [History Last Taken Unknown] fluconazole 150 mg tablet 150 mg PO Q3D 2 doses #2 tabs 05/15/22 [Rx Last Taken Unknown] fluconazole 150 mg tablet (Diflucan) 150 mg PO .COMPLEX #7 tabs 05/15/22 [Rx Last Taken Unknown] erythromycin 5 mg/gram (0.5 %) eye ointment 0.5 inch RIGHT EYE Q6H 5 days #3.5 grams 07/22/22 [Rx Last Taken Unknown] Allergy/AdvReac Type Severity Reaction Status Date / Time Gadolinium-MRI Contrast Allergy Severe KIDNEY Verified 07/22/22 17:36 Medium FAILURE [DYE] hydromorphone [From Dilaudid] Allergy Rash Verified 07/22/22 17:36 metformin Allergy Rash Verified 07/22/22 17:36 Family History Mother Diabetes Grandmother Diabetes Grandfather Diabetes Father hyperlipidemia Unknown Depression Hypertension Surgical History (Updated 05/11/22 @ 09:[address] 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 Positive for right eye tearing, foreign body sensation right eye ENT: Negative for any sore throat, ear pain, congestion Cardiovascular: Negative for any chest pain, tightness, palpitations Respiratory: Negative for any cough, sputum production, hemoptysis, dyspnea, dyspnea on exertion, orthopnea Gastrointestinal: Negative for any abdominal pain, nausea, vomiting, diarrhea, constipation, blood in stool, blood in vomit : Negative for any urinary frequency, dysuria, retention, blood in urine Muscle skeletal: Negative for any muscle joint pain, stiffness, myalgias, arthralgias, neck pain, back pain Neurological: Negative for any headache, syncope, numbness or tingling, dizziness Skin: Negative for any rashes, lumps, itching, abrasions, lacerations Psychiatric: Negative for any depression, anxiety, stress, suicidal ideation, homicidal ideation Hematologic: Negative for any easy bruising, excessive bruising, easy bleeding Allergies: Negative for any eczema, hives, rash EXAM <MARISA Cabrera - Last Filed: 07/22/22 18:17> Physical Exam Narrative Exam Narrative: Vital signs reviewed. HEET: Head normocephalic atraumatic, TMs clear bilaterally. Posterior pharynx is clear, moist mucous membranes. Nares clear bilaterally. Pupils are equal round reactive to light. I did use tetracaine to the right eye, there is no foreign body to be seen. I was able to flip back both eyelids. No evidence of foreign body. I did perform fluorescein staining, I did see a slight abrasion to the superior area of the eye. Negative for any Tung sign. Neck: Supple with no lymphadenopathy or tenderness. No signs of meningismus, negative jolt sign. Cardiac: Regular rate and rhythm no murmurs gallops or rubs, equal peripheral pulses bilaterally. Respiratory: Lungs clear to auscultation bilaterally. No chest tenderness. Abdomen: Soft, nontender, nondistended. No abdominal bruit or pulsatile masses. No hepatosplenomegaly Extremities: No peripheral edema, no signs of gross trauma or deformity. Active full range of motion of all extremities. Neuro: Cranial nerves II through XII intact, no focal neurological deficits. Skin: Clean dry and intact with no rash, purpura, petechiae, vesicles or pustules. Backs/flank: No CVA tenderness, no midline spinal tenderness, no deformity. Psych: Normal mood and affect. No SI, HI or acute psychosis. Const Vital Signs: 07/22/22 17:35 Temperature 97.8 F Temperature Source Temporal Pulse Rate 79 Respiratory Rate 16 Blood Pressure 140/84 H Blood Pressure Mean 102 Pulse Ox 100 Oxygen Delivery Method Room Air MDM <MARISA Cabrera - Last Filed: 07/22/22 18:17> [facility] Treatment and Re-Evaluation Narrative: Patient appears well, patient appears nontoxic, vital signs are stable. Patient presents to the emergency department with complaints of right eye pain after a possible foreign body struck her eye. Physical examination after tetracaine shows no foreign body seen. I was able to use fluorescein staining and did see a corneal abrasion to the superior area of the eye. There is no Tung sign. Patient had no decrease in vision however states had increased tearing. At this time, patient was placed on erythromycin ointment, she does not wear contacts. She will use this 4 times a day for 5 days. 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 She was given return precaution, all questions answered <Dr. Christal Ordonez MD - Last Filed: 07/22/22 21:28> [facility] Treatment and Re-Evaluation Narrative: Patient appears well, patient appears nontoxic, vital signs are stable. Patient presents to the emergency department with complaints of right eye pain after a possible foreign body struck her eye. Physical examination after tetracaine shows no foreign body seen. I was able to use fluorescein staining and did see a corneal abrasion to the superior area of the eye. There is no Tung sign. Patient had no decrease in vision however states had increased tearing. At this time, patient was placed on erythromycin ointment, she does not wear contacts. She will use this 4 times a day for 5 days. 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 She was given return precaution, all questions answered Patient seen and evaluated with RAVINDRA. I personally interviewed and examined the patient. I was involved in all aspects of patient's orders, interpretation of results, and treatment. Patient presents secondary to right eye injury. She states that she was putting together a bed today when something came down and hit her in the right eye. She has tearing and slight sensitivity. She wears glasses but does not wear contacts. Patient sitting upright in bed no acute distress. Head and neck examination reveals right eye injection. No obvious gross foreign body. Pupils are equal and reactive and extraocular movements are intact. No facial edema or erythema. No evidence of periorbital cellulitis. Tetracaine was applied to her right eye and patient does have evidence of a corneal abrasion after instillation of fluorescein. Patient be given erythromycin ointment. Return instructions provided. Patient voices understanding and agreement. Discharge Plan Triage Chief Complaint: Eye Problem ED Midlevel Provider: Mariano Jackson ED Provider: Christal Ordonez Dx/Rx/DC Orders Clinical Impression: Abrasion, corneal Instructions: Corneal Injury Prescriptions: New erythromycin 5 mg/gram (0.5 %) ointment 0.5 inch RIGHT EYE Q6H 5 Days Qty: 3.5 0RF Rx Instructions: Placed on the bottom eyelid. No Action sertraline [Zoloft] 100 mg tablet 150 mg PO QHS fenofibrate 50 mg capsule 200 mg PO DAILY cholecalciferol (vitamin D3) 1,250 mcg (50,000 unit) capsule 1,250 mcg PO QWEEK (DME) Angelita Malik [address] [place] [facility] See Rx Instructions .ROUTE .MEDSUPPLY Qty: 1 Rx Instructions: As directed ondansetron HCl 4 mg tablet 4 mg PO Q8H ferrous sulfate [Feosol] 325 mg (65 mg iron) tablet 325 mg PO DAILY omeprazole 40 MG capsule,delayed release(DR/EC) 40 mg PO QHS ondansetron 4 MG tablet 4 mg PO Q8H PRN PRN (Reason: Nausea) Qty: 10 0RF promethazine 25 MG tablet 25 mg PO Q6H PRN PRN (Reason: Nausea) Qty: 14 0RF Humulin N NPH Insulin KwikPen 100 unit/mL (3 mL) insulin pen 14 unit SC BID rosuvastatin [Crestor] 40 mg Tablet 40 mg PO DAILY ondansetron [ondansetron] 4 MG tablet 8 mg PO Q8H PRN PRN (Reason: Nausea) Qty: 20 0RF omega-3 acid ethyl esters 1 gram capsule 2 cap PO BID Qty: 120 6RF levothyroxine 50 mcg tablet 50 mcg PO DAILY Qty: 30 6RF (DME) pen needle, diabetic [CareFine Pen Needle] 30 gauge x 5/16 needle See Rx Instructions .ROUTE .MEDSUPPLY Qty: 100 6RF Rx Instructions: bid fluconazole 150 mg tablet 150 mg PO Q3D Qty: 2 0RF Rx Instructions: take one now and repeat in 72 hours. fluconazole [Diflucan] 150 mg tablet 150 mg PO .COMPLEX Qty: 7 5RF Rx Instructions: 150 mg PO now and in 72 hours and then take weekly for 6 months Primary Care Provider: LISA MEDINA Referrals: Carol Mcgrath MD [[facility] Staff - Active Staff] - [facility] Doctor,Out of [Non-Staff] - Activity Restrictions/Additional Instructions: Please put 0.5 inch to the bottom eyelid 4 times a day for 5 days. Please follow-up with your eye doctor Disposition Disposition: Home, Self Care Discharge Date/Time: 07/22/22 18:58
[2022-07-22] MEDS: Erythromycin Base 1 OPTH.TUBE 1 APPLIC RIGHT EYE (18:44)
== END 2022-07-22 18:58 | disposition home or self-care (01) ==
LOC: ED 18:36
PROVIDERS: Emergency Provider Emergency Medicine; Visit Provider Emergency Medicine
DX: S05.01XA Injury of conjunctiva and corneal abrasion without foreign body, right eye, initial encounter (principal); E11.9 Type 2 diabetes mellitus without complications; E78.5 Hyperlipidemia, unspecified; E66.9 Obesity, unspecified; I10 Essential (primary) hypertension; W26.8XXA Contact with other sharp object(s), not elsewhere classified, initial encounter
CPT/HCPCS: 99283

== ENCOUNTER → 2022-08-04 | Outpatient (CLI) | payer MEDICAID, SELFPAY | END | disposition home or self-care (01) | LOC: LABSPEC 15:28 | PROVIDERS: Referring Provider Advanced Practice Midwife; Visit Provider Advanced Practice Midwife | DX: R30.0 Dysuria (principal); N76.0 Acute vaginitis | CPT/HCPCS: 87070; 87077; 87086; 87088; 87205 ==

== ENCOUNTER 2023-05-20 17:49 | Emergency (ER) | payer MEDICAID, SELFPAY ==
[2023-05-20 17:50] VITALS: BP 131/82; PULSE 92; RESP 16; TEMP 36.6; O2SAT 98; BMI 43.0
--- NOTE | 2023-05-20 18:08 | RAD_ITS ---
STUDY: X-RAY - LEFT FOOT CLINICAL: Female, 27 years old. pain TECHNIQUE: 3 view(s) of the foot. COMPARISON: None. FINDINGS: Normal talus, calcaneus, and tarsal bones. Normal visualized subtalar, talonavicular, calcaneocuboid, tarsal and tarsometatarsal articulations. Normal metatarsi. Normal metatarsophalangeal joint of the great toe. Normal tibial and fibular sesamoid bones. Normal interphalangeal joint of the great toe. Normal phalanges of the great toe. Normal second through fifth metatarsophalangeal joints. Normal interphalangeal joints and phalanges of the lesser toes. The soft tissue structures are unremarkable. RAD/Foot min 3 Views IMPRESSION: Normal x-ray examination of the foot. Electronically Signed: Dequan Padron MD at 18:44 EST ,
--- NOTE | 2023-05-20 18:09 | EDS_ITS ---
HPI <RAH Pedraza - Last Filed: 05/20/23 18:57> History of Present Illness Chief Complaint: Lower Extremity Injury Narrative Narrative: 27-year-old female tripped down 1-2 outdoor steps and states she landed on her knees with her feet splayed out to the side. She has pain in her left foot. Her right pinky toenail was lifted up but she has no pain in the extremity. She was able to ambulate and drove herself here. No head injury. PFS <RAH Pedraza - Last Filed: 05/20/23 18:57> [facility] Medical History A-fib Bipolar 2 disorder Depression High triglycerides HTN (hypertension) Hx of transfusion of whole blood Hyperlipidemia Pancreatitis PTSD (post-traumatic stress disorder) Home Medications sertraline 100 mg tablet (Zoloft) 150 mg PO QHS anxiety/depression 01/06/19 [History Last Taken 09/30/19] omeprazole 40 mg capsule,delayed release 40 mg PO QHS gerd 06/22/19 [History Last Taken 09/30/19] omega-3 acid ethyl esters 1 gram capsule 2 cap PO BID #120 caps 10/06/19 [Rx Last Taken Unknown] levothyroxine 50 mcg tablet 50 mcg PO DAILY #30 tabs 11/27/19 [Rx Last Taken Unknown] fenofibrate 50 mg capsule 200 mg PO DAILY 12/01/19 [History Last Taken Unknown] pen needle, diabetic 30 gauge x 5/16 (CareFine Pen Needle) #100 ea 12/28/19 [Rx Last Taken Unknown] insulin NPH isoph U-100 human 100 unit/mL (3 mL) subcutaneous pen (Humulin N NPH U-100 Insulin KwikPen) 14 unit subcut BID 07/14/20 [History Last Taken Unknown] rosuvastatin 40 mg tablet (Crestor) 40 mg PO DAILY 07/14/20 [History Last Taken Unknown] cholecalciferol (vitamin D3) 1,250 mcg (50,000 unit) capsule 1,250 mcg PO QWEEK 09/01/20 [History Last Taken Unknown] flash glucose scanning reader ([place] [place] 14 Day [place]) #1 ea 09/01/20 [History Last Taken Unknown] ferrous sulfate 325 mg (65 mg iron) tablet (Feosol) 325 mg PO DAILY 05/11/22 [History Last Taken Unknown] ondansetron HCl 4 mg tablet 4 mg PO Q8H 05/11/22 [History Last Taken Unknown] fluconazole 150 mg tablet (Diflucan) 150 mg PO .COMPLEX #7 tabs 05/15/22 [Rx Last Taken Unknown] Allergy/AdvReac Type Severity Reaction Status Date / Time Gadolinium-MRI Contrast Allergy Severe KIDNEY Verified 08/04/22 13:55 Medium FAILURE [DYE] hydromorphone [From Dilaudid] Allergy Rash Verified 08/04/22 13:55 metformin Allergy Rash Verified 08/04/22 13:55 Family History Mother Diabetes Grandmother Diabetes Grandfather Diabetes Father hyperlipidemia Unknown Depression Hypertension Surgical History History of carpal tunnel release of both wrists History of cholecystectomy History of endoscopy History of sleeve gastrectomy laparoscopic bilateral salpingectomy Social History Smoking Status: Never smoker alcohol intake: never substance use type: does not use caffeine: No what type of physical activity do you participate in: none seatbelt use: always 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 Skin: Negative for wound. Musc: Positive for left foot pain. EXAM <RAH Pedraza - Last Filed: 05/20/23 18:57> Physical Exam Narrative Exam Narrative: CONST: Patient sitting in no acute distress. EYES: Normal inspection. NECK: Normal inspection. RESP: No respiratory distress, CTAB. CVS: Regular rate and rhythm, no murmur, no gallop. SKIN: Color normal, no rash, warm, dry, intact. EXTREMITIES: Normal appearance upper and lower extremities, full range of motion. Tender left mid fifth metatarsal. No proximal tenderness. No deformity or crepitus. No ankle tenderness. Right foot and ankle nontender. 2+ DP pulses. Full ROM. The very distal aspect of the right pinky toenail is lifted up but the base is firm and adhered. No subungual hematoma. NEURO: Oriented x4. PSYCH: Normal affect. Const Vital Signs: 05/20/23 17:50 Temperature 97.8 F Temperature Source Temporal Pulse Rate 92 Respiratory Rate 16 Blood Pressure 131/82 H Blood Pressure Mean 98 Pulse Ox 98 Oxygen Delivery Method Room Air <Dr. Tommy Dahl MD - Last Filed: 05/20/23 19:05> Physical Exam Const Vital Signs: 05/20/23 17:50 Temperature 97.8 F Temperature Source Temporal Pulse Rate 92 Respiratory Rate 16 Blood Pressure 131/82 H Blood Pressure Mean 98 Pulse Ox 98 Oxygen Delivery Method Room Air MDM <RAH Pedraza - Last Filed: 05/20/23 18:57> [facility] Narrative Medical decision making narrative: Patient fell and injured both feet. Tender over the left distal fifth metatarsal. No tenderness of the right foot. Her right pinky nail is long and the distal portion got caught and is very slightly lifted. There is no subungual hematoma. No indication for removal. She can trim it out at home. On my interpretation of the left foot x-ray there is a diagonally oriented nondisplaced fracture through the distal shaft of the fifth metatarsal. Radiologist read as negative. I provided a postop shoe and discussed symptomatic management and she was discharged in stable condition. Radiography Diagnostic Testing: Clinical Impression(s) from Imaging Studies Foot X-Ray 05/20/23 18:08 IMPRESSION: Normal x-ray examination of the foot. Electronically Signed: Dequan Padron MD at 18:44 EST , On my interpretation of the left foot x-ray there is a diagonally oriented nondisplaced fractures through the distal shaft of the fifth metatarsal. <Dr. Tommy Dahl MD - Last Filed: 05/20/23 19:05> [facility] Narrative Medical decision making narrative: Patient fell and injured both feet. Tender over the left distal fifth metatarsal. No tenderness of the right foot. Her right pinky nail is long and the distal portion got caught and is very slightly lifted. There is no subungual hematoma. No indication for removal. She can trim it out at home. On my interpretation of the left foot x-ray there is a diagonally oriented nondisplaced fracture through the distal shaft of the fifth metatarsal. Radiologist read as negative. I provided a postop shoe and discussed symptomatic management and she was discharged in stable condition. I have personally performed a face to face assessment of the patient and have reviewed the RAVINDRA Note. I performed a substantive portion of the visit including all aspects of the following. My villalobos findings include: History is 27-year-old female history of diabetes. Tripped and fell going down steps injuring her left foot on the lateral aspect the left foot over the metatarsal of the small toe. No other injuries did not hit her head. Has not recently been ill. Exam is [well-appearing 27-year-old female. Vital signs stable afebrile. HEENT exam unremarkable atraumatic. Nontender. Neck nontender. Back and spine nontender. Lungs clear. Heart regular rhythm. Chest wall and ribs nontender. Abdomen soft nontender. Pelvic girdle intact. Moving all 4 extremities. Neurovascular intact. Left foot neurovascular intact. Able to wiggle toes. Normal touch sensation. Normal DP pulse. Skin intact. Tenderness over the small toe metatarsal.] Medical Decision Making [x-ray left foot 3 views interpreted by ourselves shows a nondisplaced fracture distal and of the fifth or small amount of tarsal. Postop shoe discharge. Ice and elevate. Follow-up with either podiatry or orthopedics.] Other additions or changes: [None] Radiography Diagnostic Testing: Clinical Impression(s) from Imaging Studies Foot X-Ray 05/20/23 18:08 IMPRESSION: Normal x-ray examination of the foot. Electronically Signed: Dequan Pardon MD at 18:44 EST , Discharge Plan Triage Chief Complaint: Lower Extremity Injury ED Midlevel Provider: Eli Barnett ED Provider: Tommy Dahl Dx/Rx/DC Orders Clinical Impression: Fracture of fifth metatarsal bone of left foot Instructions: ED Fracture, Foot Prescriptions: No Action sertraline [Zoloft] 100 mg tablet 150 mg PO QHS fenofibrate 50 mg capsule 200 mg PO DAILY cholecalciferol (vitamin D3) 1,250 mcg (50,000 unit) capsule 1,250 mcg PO QWEEK (DME) [employer] [place] [address] Day [place] [facility] See Rx Instructions .ROUTE .MEDSUPPLY Qty: 1 Rx Instructions: As directed ondansetron HCl 4 mg tablet 4 mg PO Q8H ferrous sulfate [Feosol] 325 mg (65 mg iron) tablet 325 mg PO DAILY omeprazole 40 MG capsule,delayed release(DR/EC) 40 mg PO QHS Humulin N NPH Insulin KwikPen 100 unit/mL (3 mL) insulin pen 14 unit SC BID rosuvastatin [Crestor] 40 mg Tablet 40 mg PO DAILY omega-3 acid ethyl esters 1 gram capsule 2 cap PO BID Qty: 120 6RF levothyroxine 50 mcg tablet 50 mcg PO DAILY Qty: 30 6RF (DME) pen needle, diabetic [CareFine Pen Needle] 30 gauge x 5/16 needle See Rx Instructions .ROUTE .MEDSUPPLY Qty: 100 6RF Rx Instructions: bid fluconazole [Diflucan] 150 mg tablet 150 mg PO .COMPLEX Qty: 7 5RF Rx Instructions: 150 mg PO now and in 72 hours and then take weekly for 6 months Primary Care Provider: AIDEN FRANCISCO Referrals: NOT,DEFINED [Non-Staff] - Activity Restrictions/Additional Instructions: Ice, rest, alternate Tylenol and Motrin as needed. If not improving please see your primary care doctor. Disposition Disposition: Home, Self Care
[2023-05-20] MEDS: Ibuprofen 600 MG Tablet PO (18:18)
[2023-05-20 19:15] VITALS: BP 125/84; PULSE 78; RESP 18; TEMP 36.6; O2SAT 99
== END 2023-05-20 19:36 | disposition home or self-care (01) ==
PROVIDERS: Emergency Provider Emergency Medicine; Visit Provider Emergency Medicine
DX: S92.355A Nondisplaced fracture of fifth metatarsal bone, left foot, initial encounter for closed fracture (principal); E11.9 Type 2 diabetes mellitus without complications; I10 Essential (primary) hypertension; E78.5 Hyperlipidemia, unspecified; W10.9XXA Fall (on) (from) unspecified stairs and steps, initial encounter
CPT/HCPCS: 73630; 99283